=== PATIENT | male | born 1935 | race Caucasian/White ===

== ENCOUNTER 2017-06-06 11:57 | Inpatient (IN) | payer OTHER, BC ==
[~2017-06-06] VITALS: Ht 177.8 cm; Wt 90.2 kg
[~2017-06-06 11:57] MED LIST: ALL300 PO; AMIO200T4 PO; ASPEC325 PO; ATOR80TA PO; CHOL100027 PO; CYAN500T SL; DICL1GEL12 TOP; DUTA0.5C PO; FURO-85 PO; GABA-113 PO; GEMF600T3 PO; ISOS30TA3 PO; LEVO125T5 PO; LISI-461 PO; METO100T44 PO; NTRGSL/4 UT
[2017-06-06] MEDS ORDERED: SODIUM CHLORIDE 0.9% 1000ML 500 ML IV STA (12:15)
[2017-06-06] MEDS ORDERED: ONDANSETRON INJ 2 MG/ML 2 ML VIAL IV STA (12:15)
--- NOTE | 2017-06-06 12:19 | EMERGENCY ROOM VISIT NOTE ---
History Report prepared by Markos: Deangelo Canales Under the Supervision of: Dr. Dominik Armstrong M.D. First contact with patient: 12:07 Chief Complaint: ABDOMINAL PAIN Stated Complaint: ABDOMINAL PAIN History of Present Illness The patient is a 82 year old male who presents to the Emergency Room with complaints of worsening sharp bilateral lower abdominal pain that began several months ago, but worsened over this past week. He rates his pain a 7/10 in severity. Over these past months, the patient has been having this abdominal pain along with some bilateral hip pain and mild left leg weakness. However about 1 week ago, the patient's abdominal pain worsened significantly to this lower quadrants. He denies any recent falls, trauma, fevers, chills, diaphoresis , nausea, vomiting, testicular pain, pain with bowel movements, or abnormal urinary symptoms. His pain is exacerbated with bending over but is relieved with having a bowel movement. He has a past medical history of diverticulosis with the possibility of diverticulitis. However, diverticulitis was never diagnosed officially. He denies any abdominal surgeries. He also has a past medical history of atrial fibrillation with a pacemaker/defibrillator in place. Source of History: patient Onset: several months ago Position: abdomen (bilateral lower) Symptom Intensity: 7/10 Quality: sharp Timing: worsening Modifying Factors (Worsening): movement (bending over) Modifying Factors (Relieving): other (Bowel movement) Associated Symptoms: + weakness (left leg, mild), No fevers, No chills, No diaphoresis, No nausea, No vomiting, No urinary symptoms Note: He is having some bilateral hip tenderness. He denies any testicular pain or pain with bowel movements. Review of Systems See HPI for pertinent positives & negatives. A total of 10 systems reviewed and were otherwise negative. Past Medical & Surgical Medical Problems: (1) Aphasia (2) BPH (benign prostatic hyperplasia) (3) CAD (coronary artery disease) (4) DM type 2 (diabetes mellitus, type 2) (5) Gout (6) History of atrial fibrillation (7) HTN (hypertension) (8) Hyperlipidemia (9) Hypothyroidism (10) Ischemic cardiomyopathy (11) Kidney disease (12) Pacemaker (13) Systolic heart failure (14) TIA (transient ischemic attack) Surgical Problems: (1) History of implantable cardiac defibrillator (ICD) (2) Hx of CABG (3) Hx of tonsillectomy (4) Hx of transurethral resection of prostate Family History FH: heart disease Hypertension Kidney disease Kidney stones Social History Smoking Status: Never Smoker Alcohol Use: none Drug Use: none Marital Status: Housing Status: lives with significant other Occupation Status: retired Current/Historical Medications Scheduled Allopurinol (Allopurinol), 300 MG PO DAILY Amiodarone Hcl (Cordarone), 100 MG PO DAILY Aspirin (Aspirin), 325 MG PO DAILY Atorvastatin (Lipitor), 80 MG PO HS Cholecalciferol (Vitamin D 1000 Unit), 2,000 INTER.UNIT PO DAILY Cyanocobalamin (Vitamin B-12), 500 MCG SL DAILY Dutasteride (Avodart), 0.5 MG PO DAILY Furosemide (Lasix), 20 MG PO DAILY Gabapentin (Neurontin), 1 CAP PO HS Gemfibrozil (Lopid), 600 MG PO BID Isosorbide Mononitrate Ext Rel (Imdur Ext Rel), 1 TAB PO DAILY Levothyroxine Sodium (Levothyroxine Sodium), 125 MCG PO DAILY Lisinopril (Zestril), 5 MG PO QAM Metoprolol Succ (Toprol Xl) (Toprol-Xl ), 100 MG PO QAM Nitroglycerin (Nitrostat), 0.4 MG UT PRN Allergies Coded Allergies: Amlodipine (Verified Adverse Reaction, Mild, INSOMNIA, 06/06/17) Physical Exam Vital Signs Date Time Temp Pulse Resp B/P (MAP) Pulse Ox O2 Delivery O2 Flow Rate FiO2 06/06/17 13:33 60 20 131/71 97 Room Air 06/06/17 12:24 60 06/06/17 11:59 36.6 88 16 94/57 94 Room Air Physical Exam GENERAL: Patient is in no acute distress. HEENT: No acute trauma, normocephalic atraumatic, mucous membranes moist, no nasal congestion, no scleral icterus. NECK: No stridor, no adenopathy, no meningismus, trachea is midline. LUNGS: Clear to auscultation bilaterally, no wheeze, no rhonchi, breath sounds equal. HEART: Without murmurs gallops or rubs, regular rate and rhythm. ABDOMEN: Soft, tender in the lower quadrants primarily, both right and left sides, bowel sounds positive, no hernias, no peritonitis. EXTREMITIES: No cyanosis or edema, full range of motion of all the joints without pain or difficulty, no signs for acute trauma. NEUROLOGIC: Oriented x 3, no acute motor or sensory deficits, no focal weakness. No weakness appreciated in the left lower extremity. SKIN: No rash, no jaundice, no diaphoresis. Medical Decision & Procedures ER Provider Diagnostic Interpretation: Radiology results as stated below per my review and radiologist interpretation: PELVIS 1 OR 2 VIEW ROUTINE CLINICAL HISTORY: hip, pelvis pain pain COMPARISON: None. DISCUSSION: The bones and joint spaces appear intact. There is no evidence of fracture, dislocation or bony disease. Significant degenerative change of the hips bilaterally. No evidence for acetabular protrusion. Mild degenerative change sacroiliac joints. IMPRESSION: Degenerative change of the hips bilaterally. Mild degenerative change sacroiliac joints. No acute process. The above report was generated using voice recognition software. It may contain grammatical, syntax or spelling errors. Electronically signed by: Artemio Munoz M.D. 06/06/2017 1:52 PM Dictated Date/Time: 06/06/2017 1:52 PM ABDOMEN AND PELVIS CT WITH ORAL CONTRAST CT DOSE: 835.22 mGy.cm HISTORY: Acute generalized abdominal pain ABD PAIN, POSSIBLE DIVERTICULITIS TECHNIQUE: Multiaxial CT images of the abdomen and pelvis were performed following the use of oral contrast. A dose lowering technique was utilized adhering to the principles of ALARA. COMPARISON STUDY: CT abdomen and pelvis 02/19/2017. FINDINGS: Mild subsegmental bibasilar lysis/scarring. There is no pneumatosis or pneumoperitoneum identified. Inferior cardiac chambers are least moderately enlarged. Mural fibrofatty changes are noted involving the lateral wall left ventricle compatible with remote infarction. Pacer leads are noted overlying the right atrium and right ventricle. Prior median sternotomy. Coronary arterial disease. Evaluation of the solid abdominal organs is limited without the use of contrast. The liver, spleen, and adrenal glands are within normal limits. Moderate to severe generalized pancreatic atrophy. High attenuating material within the lumen of the gallbladder suggests gallbladder sludge. Lobulated renal parenchyma is noted bilaterally. 3 mm nonobstructing calculus of the inferior pole right kidney. Bilateral renal cysts are noted including a 2.5 cm exophytic cyst of the inferior pole right kidney. Indeterminate 2.3 cm exophytic lesion of the medial superior pole right kidney likely reflects a mildly complex cyst. Probable proteinaceous or hemorrhagic cyst of the lateral interpolar left kidney measures 10 mm. Punctate calculus of the inferior pole left kidney. No ureteral calculi or obstructive uropathy. Ureters, urinary bladder and prostate are unremarkable. Small fat filled left inguinal hernia. Moderate atherosclerosis of the aorta without aneurysm identified. No pathologic adenopathy. There is no bowel obstruction or focal bowel wall thickening. 1.4 cm ovoid calcified structure adjacent to the anterior rectosigmoid is unchanged. There is mild colonic diverticulosis without CT evidence of acute diverticulitis. The appendix is contrast-filled and appears noninflamed. Dystrophic calcifications are noted involving the xiphoid process. Mild bilateral gynecomastia. Multilevel discogenic degenerative changes and facet arthrosis. IMPRESSION: 1. No acute intra-abdominal or intrapelvic abnormality identified. 2. Mild colonic diverticulosis without CT evidence of acute diverticulitis. 3. Probable gallbladder sludge. 4. Bilateral nonobstructing nephrolithiasis. 5. Additional findings as above. Electronically signed by: Yazan Narvaez M.D. 06/06/2017 4:07 PM Dictated Date/Time: 06/06/2017 4:00 PM Laboratory Results 06/06/17 12:20 Red Blood Count 4.17, Mean Corpuscular Volume 93.5, Mean Corpuscular Hemoglobin 33.8, Mean Corpuscular Hemoglobin Concent 36.2, Mean Platelet Volume 11.9, Neutrophils (%) (Auto) 57.9, Lymphocytes (%) (Auto) 27.2, Monocytes (%) (Auto) 12.0, Eosinophils (%) (Auto) 1.9, Basophils (%) (Auto) 0.8, Neutrophils # (Auto ) 3.04, Lymphocytes # (Auto) 1.43, Monocytes # (Auto) 0.63, Eosinophils # (Auto ) 0.10, Basophils # (Auto) 0.04 Test 06/06/17 12:20 06/06/17 13:59 White Blood Count 5.25 K/uL (4.8-10.8) Red Blood Count 4.17 M/uL (4.7-6.1) Hemoglobin 14.1 g/dL (14.0-18.0) Hematocrit 39.0 % (42-52) Mean Corpuscular Volume 93.5 fL (80-100) Mean Corpuscular Hemoglobin 33.8 pg (25-34) Mean Corpuscular Hemoglobin Concent 36.2 g/dl (32-36) Platelet Count 152 K/uL (130-400) Mean Platelet Volume 11.9 fL (7.4-10.4) Neutrophils (%) (Auto) 57.9 % Lymphocytes (%) (Auto) 27.2 % Monocytes (%) (Auto) 12.0 % Eosinophils (%) (Auto) 1.9 % Basophils (%) (Auto) 0.8 % Neutrophils # (Auto) 3.04 K/uL (1.4-6.5) Lymphocytes # (Auto) 1.43 K/uL (1.2-3.4) Monocytes # (Auto) 0.63 K/uL (0.11-0.59) Eosinophils # (Auto) 0.10 K/uL (0-0.5) Basophils # (Auto) 0.04 K/uL (0-0.2) RDW Standard Deviation 46.0 fL (36.4-46.3) RDW Coefficient of Variation 13.5 % (11.5-14.5) Immature Granulocyte % (Auto) 0.2 % Immature Granulocyte # (Auto) 0.01 K/uL (0.00-0.02) Prothrombin Time 10.7 SECONDS (9.0-12.0) Prothromb Time International Ratio 1.0 (0.9-1.1) Activated Partial Thromboplast Time 23.1 SECONDS (21.0-31.0) Partial Thromboplastin Ratio 0.9 Estimated Average Glucose 338 mg/dl Hemoglobin A1c 13.4 % (4.5-5.6) Total Bilirubin 0.6 mg/dl (0.2-1) Aspartate Amino Transf (AST/SGOT) 20 U/L (15-37) Alanine Aminotransferase (ALT/SGPT) 24 U/L (12-78) Alkaline Phosphatase 176 U/L (45-117) Total Protein 7.5 gm/dl (6.4-8.2) Albumin 3.8 gm/dl (3.4-5.0) Globulin 3.7 gm/dl (2.5-4.0) Albumin/Globulin Ratio 1.0 (0.9-2) Lipase 517 U/L (73-393) Arterial Blood pH 7.31 (7.35-7.45) Arterial Blood Partial Pressure CO2 46 mmHg (35-46) Arterial Blood Partial Pressure O2 74 mm/Hg (80-95) Arterial Blood HCO3 23 mmol/L (19-24) Arterial Blood Oxygen Saturation 91.5 % (90-95) Arterial Blood Base Excess -3.6 mEq/L (-9-1.8) Arterial Blood Gas Delivery ROOM AIR Jacky Test POS (POS) Laboratory results reviewed by me. Medications Administered Medications (Trade) Dose Ordered Sig/Aleida Route Start Time Stop Time Status Last Admin Dose Admin Sodium Chloride 500 ml @ 999 mls/hr Q31M STAT IV 06/06/17 12:15 06/06/17 12:45 DC 06/06/17 12:22 999 MLS/HR Ondansetron HCl (Zofran Inj) 4 mg NOW STAT IV 06/06/17 12:15 06/06/17 12:17 DC 06/06/17 12:26 4 MG Sodium Chloride 500 ml @ 999 mls/hr Q31M STAT IV 06/06/17 13:06 06/06/17 13:36 DC 06/06/17 13:33 999 MLS/HR Insulin Human Regular (novoLIN-R U-100 PER UNIT) 10 units NOW STAT IV 06/06/17 13:06 06/06/17 13:09 DC 06/06/17 13:30 10 UNITS ED Course 1207: The patient was evaluated in room C7. A complete history and physical exam was performed. 1215: Ordered Zofran Inj 4 mg IV, Sodium Chloride 500 ml @ 999 mls/hr IV 1306: Ordered Insulin Human Regular 10 units IV, Sodium Chloride 500 ml @ 999 mls/hr IV 1315: Upon reexamination the patient is resting. I discussed results and treatment plan with the patient. He verbalizes agreement and understanding. I spoke with Dr. Hobson of the [facility]. We discussed the patient's results and findings. The patient will be evaluated by them for further management. Medical Decision Differential diagnosis includes but is not limited to diverticulitis, abscess, UTI, arthritis, malignancy, dehydration, electrolyte imbalance, anemia, and hernia. There is no leukocytosis or concerning anemia. Renal panel testing shows a low sodium and a hyperglycemia. Patient also appears to be in acute renal failure. No hepatitis. Pelvis film shows some arthritis, no fracture of the pelvis, no fracture of the hips. Abdominal and pelvis CT shows an open bowel, no bowel obstruction, no diverticulitis, no abscess. Lipase mildly elevated, possibly consistent with early pancreatitis. The patient presents to the ER with lower abdominal pain that has been ongoing for a few weeks. Workup here shows hyperglycemia, dehydration, acute renal failure. He has a mild lipase elevation. The patient received IV saline, he was given IV Zosyn. He received IV insulin. Given the findings, a hospital stay is warranted. I spoke with the patient and the case work aide. The on-call hospitalist was consulted. Medication Reconcilliation Current Medication List: was personally reviewed by me Blood Pressure Screening Patient's blood pressure: Low blood pressure Consults Time Called: 1310 Consulting Physician: Dr. Joce Frey Hospitalist Returned Call: [phone] Discussed the patient's case. The patient will be evaluated for further management. Impression Primary Impression: ARF (acute renal failure) Additional Impressions: Dehydration Hyperglycemia Lower abdominal pain Scribe Attestation The scribe's documentation has been prepared under my direction and personally reviewed by me in its entirety. I confirm that the note above accurately reflects all work, treatment, procedures, and medical decision making performed by me. Departure Information Dispostion Being Evaluated By Hospitalist Referrals Rogelio Watt D.O. (PCP) Patient Instructions My [facility] Problem Qualifiers
[2017-06-06] MEDS ORDERED: OPTIRAY 320 IV PRN (12:30)
[2017-06-06 12:35] LABS: BASO % 0.8 %; BASO ABS # 0.04 K/uL (0-0.2); EOS % 1.9 %; HEMOGLOBIN 14.1 g/dL (14.0-18.0); IG# 0.01 K/uL (0.00-0.02); LYMPH % 27.2 %; LYMPH ABS # 1.43 K/uL (1.2-3.4); MEAN CELL VOLUME 93.5 fL (80-100); MEAN CORPUSCULAR HEMOGLOBIN 33.8 pg (25-34); MEAN CORPUSCULAR HGB CONC 36.2 g/dl (32-36); MEAN PLATELET VOLUME 11.9 fL (7.4-10.4); MONO ABS # 0.63 K/uL (0.11-0.59); NEUT % 57.9 %; NEUT ABS # 3.04 K/uL (1.4-6.5); PLATELET COUNT 152 K/uL (130-400); RED CELL DISTRIBUTION WIDTH CV 13.5 % (11.5-14.5); WHITE BLOOD COUNT 5.25 K/uL (4.8-10.8)
[2017-06-06 12:53] LABS: PTT PATIENT 23.1 SECONDS (21.0-31.0)
[2017-06-06 13:03] LABS: ALBUMIN 3.8 gm/dl (3.4-5.0); CALCIUM 9.8 mg/dl (8.5-10.1); CREATININE 3.12 mg/dl (0.60-1.40); POTASSIUM 4.8 mmol/L (3.5-5.1); TOTAL PROTEIN 7.5 gm/dl (6.4-8.2)
[2017-06-06] MEDS ORDERED: SODIUM CHLORIDE 0.9% 500ML 500 ML IV STA (13:06)
[2017-06-06] MEDS ORDERED: NovoLIN-R INSULIN PER UNIT CHARGE IV STA (13:06)
--- NOTE | 2017-06-06 13:53 | DIAGNOSTIC IMAGING REPORT ---
PELVIS 1 OR 2 VIEW ROUTINE CLINICAL HISTORY: hip, pelvis pain pain COMPARISON: None. DISCUSSION: The bones and joint spaces appear intact. There is no evidence of fracture, dislocation or bony disease. Significant degenerative change of the hips bilaterally. No evidence for acetabular protrusion. Mild degenerative change sacroiliac joints. IMPRESSION: Degenerative change of the hips bilaterally. Mild degenerative change sacroiliac joints. No acute process. The above report was generated using voice recognition software. It may contain grammatical, syntax or spelling errors. Electronically signed by: Artemio Munoz M.D. 06/06/2017 1:52 PM Dictated Date/Time: 06/06/2017 1:52 PM
[2017-06-06 14:15] LABS: PHOSPHORUS 3.2 mg/dl (2.5-4.9)
[2017-06-06 14:20] LABS: HEMOGLOBIN A1C 13.4 % (4.5-5.6)
[2017-06-06] MEDS ORDERED: NITROGLYCERIN 0.4 MG SL PER TAB CHARGE SL PRN (14:30)
[2017-06-06] MEDS ORDERED: PHARMACY GLYCEMIC MGMT CONSULT PRN (14:30)
[2017-06-06] MEDS ORDERED: POLYETHYLENE (MIRALAX) 17 GM PACK PO PRN (14:30)
[2017-06-06] MEDS ORDERED: ONDANSETRON INJ 2 MG/ML 2 ML VIAL IV PRN (14:30)
[2017-06-06] MEDS ORDERED: HHS GOAL RANGE 250-350 mg/dl ONE (14:30)
[2017-06-06] MEDS ORDERED: SEVERE STRESS LEVEL ONE (14:30)
[2017-06-06] MEDS ORDERED: ACETAMINOPHEN 325 MG TAB PO PRN (14:30)
[2017-06-06] MEDS ORDERED: GABA400C PO (14:55)
[2017-06-06] MEDS ORDERED: INSULIN IV INFUSION PROTOCOL SCH (15:12)
[2017-06-06] MEDS ORDERED: GLUCAGON FOR INJ 1 MG VIAL SQ PRN (16:00)
[2017-06-06] MEDS ORDERED: PENDING D5 1/2NS+20mEq KCL IVF SCH (16:00)
[2017-06-06] MEDS ORDERED: PENDING NSS+20mEq KCL IVF SCH (16:00)
[2017-06-06] MEDS ORDERED: GLUCOSE 40% GEL 15 GM TUBE PO PRN (16:00)
[2017-06-06] MEDS ORDERED: GLUCOSE 10 TABS/TUBE PO PRN (16:00)
[2017-06-06] MEDS ORDERED: NovoLIN R BOLUS FROM BAG IV ONE (16:00)
[2017-06-06] MEDS ORDERED: DEXTROSE 50% 50 ML SYR IV PRN (16:00)
--- NOTE | 2017-06-06 16:06 | History and Physical ---
History & Physical Date & Time of Service: Jun 06, 2017 at 15:04 Chief Complaint: Abdominal Pain Primary Care Physician: Rogelio Watt D.O. History of Present Illness Source: patient, spouse, clinic records, hospital records Pt is 82 y/o M with PMH HTN, CAD s/p CABG, ischemic heart disease, systolic heart failure, paroxysmal VT with ICD implanted, CKD IV, hyperlipidemia, hypothyroidism, hx TIA, BPH, DM II diet controlled presented to ER with c/o generalized weakness and weakness to arms past couple of days with some numbness sensation to distal tuft of R 2-4 fingers. Also c/o polyuria, polydipsia, dry mouth past 3 days. C/O blurry vision past 3 weeks. C/O frontal RICHARDS this morning. Past couple of days some aching across his lower abdomen, which has resolved since arrival to ER. Hx neck and low back pain with L leg radiculopathy in past and followed by Dr Shah. In past had injection SI joint , none recently. On gabapentin HS. States last week went bowling and after started with aching across lower back with left leg weakness and bilateral hip pain. he states this feels like prior flares in past. Hx L foot pain with negative foot xray and was on prednisone 20mg x 5 days on 05/02/17 and had resolution of foot pain. Pt diet controlled DM II, doesn't check home BS. HA1c on 05/02/17 was 7.6. Usually takes lasix daily, however hasn't taken past couple of days with increased urination. Last BM 2 days ago. Hx diverticulosis, colonoscopy 2013. Denies fever/chills, diaphoresis, N/V/D, melena, hematochezia , dizziness, syncope, vision loss, loss ROM of neck, loss ROM of extremities, CP , SOB, orthopnea, palpitations, cough, sore throat, otalgia, rhinorrhea, extremity edema, rashes, hematuria, dysuria, saddle paresthesias, lower extremity paresthesias, loss control of bowel/bladder. Past Medical/Surgical History Medical Problems: (1) Aphasia Status: Resolved (2) BPH (benign prostatic hyperplasia) Status: Chronic (3) CAD (coronary artery disease) Permanent Comment: [place] 1996 [place] [facility] [place] Status: Chronic (4) DM type 2 (diabetes mellitus, type 2) Permanent Comment: diet controlled Status: Chronic (5) Gout Status: Chronic (6) History of atrial fibrillation Status: Chronic (7) HTN (hypertension) Status: Chronic (8) Hyperlipidemia Status: Chronic (9) Hypothyroidism Status: Chronic (10) Ischemic cardiomyopathy Status: Chronic (11) Kidney disease Permanent Comment: CKD IV Status: Chronic (12) Pacemaker Status: Chronic (13) Systolic heart failure Status: Chronic (14) TIA (transient ischemic attack) Status: Resolved Surgical Problems: (1) History of implantable cardiac defibrillator (ICD) Status: Resolved (2) Hx of CABG Permanent Comment: Status: Resolved (3) Hx of tonsillectomy Status: Resolved (4) Hx of transurethral resection of prostate Status: Resolved Family History FH: heart disease Hypertension Kidney disease Kidney stones Social History Smoking Status: Never Smoker Smokeless Tobacco Use: No Alcohol Use: occasionally Drug Use: none Marital Status: Housing status: lives with significant other Occupational Status: retired Immunizations History of Tetanus Vaccine?: Yes History of Pneumococcal: Yes History of Hepatitis B Vaccine: No Multi-Drug Resistant Organisms History of MDRO: No Allergies Coded Allergies: Amlodipine (Verified Adverse Reaction, Mild, INSOMNIA, 06/06/17) Home Medications Scheduled Allopurinol (Allopurinol), 300 MG PO DAILY Amiodarone Hcl (Cordarone), 100 MG PO DAILY Aspirin (Aspirin), 325 MG PO DAILY Atorvastatin (Lipitor), 80 MG PO HS Cholecalciferol (Vitamin D 1000 Unit), 2,000 INTER.UNIT PO DAILY Cyanocobalamin (Vitamin B-12), 500 MCG SL DAILY Dutasteride (Avodart), 0.5 MG PO DAILY Furosemide (Lasix), 20 MG PO DAILY Gabapentin (Neurontin), 1 CAP PO HS Gemfibrozil (Lopid), 600 MG PO BID Isosorbide Mononitrate Ext Rel (Imdur Ext Rel), 1 TAB PO DAILY Levothyroxine Sodium (Levothyroxine Sodium), 125 MCG PO DAILY Lisinopril (Zestril), 5 MG PO QAM Metoprolol Succ (Toprol Xl) (Toprol-Xl ), 100 MG PO QAM Nitroglycerin (Nitrostat), 0.4 MG UT PRN Review of Systems See HPI for pertinent positives & negatives. All other systems reviewed and were otherwise negative Physical Exam Vital Signs Date Time Temp Pulse Resp B/P (MAP) Pulse Ox O2 Delivery O2 Flow Rate FiO2 06/06/17 13:33 60 20 131/71 97 Room Air 06/06/17 12:24 60 06/06/17 11:59 36.6 88 16 94/57 94 Room Air General Appearance: WD/WN, no apparent distress Head: normocephalic, atraumatic Eyes: normal inspection, PERRL, EOMI, sclerae normal ENT: hearing grossly normal, pharynx normal, + pertinent finding (dry mucous membranes) Neck: supple, no JVD, trachea midline, + pertinent finding (non-tender to palpation, ROM intact) Respiratory/Chest: lungs clear, normal breath sounds, no respiratory distress, no accessory muscle use Cardiovascular: regular rate, rhythm, no edema, normal peripheral pulses, + systolic murmur Abdomen/GI: normal bowel sounds, non tender (non-tender on my examination), soft Back: normal inspection, no CVA tenderness, + pertinent finding (non-tender to palpation. negative leg raising) Extremities/Musculoskelatal: normal inspection, normal capillary refill, no pedal edema, non-tender, + pertinent finding (bilateral upper and lower extremities with equal strength) Neurologic/Psych: alert, normal mood/affect, oriented x 3 Skin: normal color, warm/dry Diagnostics Laboratory Results Results Past 24 Hours Test 06/06/17 12:20 06/06/17 13:59 06/06/17 14:16 Range/Units White Blood Count 5.25 4.8-10.8 K/uL Red Blood Count 4.17 4.7-6.1 M/uL Hemoglobin 14.1 14.0-18.0 g/dL Hematocrit 39.0 42-52 % Mean Corpuscular Volume 93.5 80-100 fL Mean Corpuscular Hemoglobin 33.8 25-34 pg Mean Corpuscular Hemoglobin Concent 36.2 32-36 g/dl Platelet Count 152 130-400 K/uL Mean Platelet Volume 11.9 7.4-10.4 fL Neutrophils (%) (Auto) 57.9 % Lymphocytes (%) (Auto) 27.2 % Monocytes (%) (Auto) 12.0 % Eosinophils (%) (Auto) 1.9 % Basophils (%) (Auto) 0.8 % Neutrophils # (Auto) 3.04 1.4-6.5 K/uL Lymphocytes # (Auto) 1.43 1.2-3.4 K/uL Monocytes # (Auto) 0.63 0.11-0.59 K/uL Eosinophils # (Auto) 0.10 0-0.5 K/uL Basophils # (Auto) 0.04 0-0.2 K/uL RDW Standard Deviation 46.0 36.4-46.3 fL RDW Coefficient of Variation 13.5 11.5-14.5 % Immature Granulocyte % (Auto) 0.2 % Immature Granulocyte # (Auto) 0.01 0.00-0.02 K/uL Prothrombin Time 10.7 9.0-12.0 SECONDS Prothromb Time International Ratio 1.0 0.9-1.1 Activated Partial Thromboplast Time 23.1 21.0-31.0 SECONDS Partial Thromboplastin Ratio 0.9 Sodium Level 126 136-145 mmol/L Potassium Level 4.8 3.5-5.1 mmol/L Chloride Level 92 98-107 mmol/L Carbon Dioxide Level 24 21-32 mmol/L Anion Gap 10.0 3-11 mmol/L Blood Urea Nitrogen 46 7-18 mg/dl Creatinine 3.12 0.60-1.40 mg/dl Est Creatinine Clear Calc Drug Dose 22.4 ml/min Estimated GFR () 20.7 Estimated GFR (Non- 17.9 BUN/Creatinine Ratio 14.8 10-20 Random Glucose 679 70-99 mg/dl Estimated Average Glucose 338 mg/dl Hemoglobin A1c 13.4 4.5-5.6 % Calcium Level 9.8 8.5-10.1 mg/dl Phosphorus Level 3.2 2.5-4.9 mg/dl Magnesium Level 2.8 1.8-2.4 mg/dl Total Bilirubin 0.6 0.2-1 mg/dl Aspartate Amino Transf (AST/SGOT) 20 15-37 U/L Alanine Aminotransferase (ALT/SGPT) 24 12-78 U/L Alkaline Phosphatase 176 45-117 U/L Total Protein 7.5 6.4-8.2 gm/dl Albumin 3.8 3.4-5.0 gm/dl Globulin 3.7 2.5-4.0 gm/dl Albumin/Globulin Ratio 1.0 0.9-2 Lipase 517 73-393 U/L Beta-Hydroxybutyric Acid 2.35 0.2-2.81 mg/dL Arterial Blood pH 7.31 7.35-7.45 Arterial Blood Partial Pressure CO2 46 35-46 mmHg Arterial Blood Partial Pressure O2 74 80-95 mm/Hg Arterial Blood HCO3 23 19-24 mmol/L Arterial Blood Oxygen Saturation 91.5 90-95 % Arterial Blood Base Excess -3.6 -9-1.8 mEq/L Arterial Blood Gas Delivery ROOM AIR Jacky Test POS POS Bedside Glucose 559 70-99 mg/dl Diagnostic Radiology PELVIC XRAY: IMPRESSION: Degenerative change of the hips bilaterally. Mild degenerative change sacroiliac joints. No acute process. EKG EKG: dual paced rhythm Read by cardiology: AV dual-paced rhythm with prolonged AV conduction Abnormal ECG When compared with ECG of 19-FEB-2017 13:14, No significant change was found Confirmed by Mesfin Machado ([id number]) on 06/06/2017 2:32:49 PM Impression Assessment and Plan [facility] Pt with hx diet controlled DM II. HA1c was 7.6 on 05/02/17. He completed a course of prednisone 20mg x 5 days for foot pain on 05/02/17. C/O weakness, polydipsia, polyuria, blurry vision, RICHARDS. RICHARDS resolved. Suspect from hyperglycemia, will continue to monitor. Pt afebrile. Initial BP: 94/57 up to 131/71. P: 88, R: 16. In ER Glucose: 679, K: 4.8, Beta-hydroxybutyric acid: 2.3. ABG: pH: 7.3, pCO2: 46, pO2: 74, HCO3: 23. Pt given IV insulin R 10U and 1 liter NSS. -pending CT abd/pelvis for lower abdominal pain to r/o diverticulitis. No bleeding. Lipase: 517, Alk phos: 176. no current abdominal pain, suspect from hyperglycemia. Continue to monitor -pending U/A -Following [facility] protocol. IVF fluids, insulin drip -pharmacy glycemic consult -serial prp to monitor electrolytes -repeat phosphorus and magnesium labs -recheck vbg -diabetes education consult PSEUDOHYPONATREMIA Corrected Na is 135 for Glucose of 679 -continue to monitor DONYA on CKD IV Cr: 3.12 (baseline ~2.2). Pt dehydrated. -IVF -continue to monitor -avoid nephrotoxic agents when possible -hold lisinopril -nephrology consult ISCHEMIC CARDIOMYOPATHY, CHRONIC SYSTOLIC HF Pt with chronic low EF. Echo 09/07: EF: 25-30%, moderate aortic regurgitation, global LF hypokinesis. No increased edema, no SOB, CP or palpitations -holding lasix for now -echo HX PAROXYSMAL VT with ICD IMPLANTATION Hx ventricular and atrial arrhythmia. On amiodarone. dual paced on EKG. No CP, SOB, edema, ICD firing. -continue amiodarone CAD S/P CABG Hx CABG 1996. No CP or SOB -continue metoprolol, Imdur, atorvastatin, gemfibrozil BACK PAIN, LLE RADICULOPATHY pt with hx, followed by Dr Shah. Suspect flare from bowling last week -continue gabapentin and continue to monitor HYPOTHYROIDISM TSH: 0.81 on 05/02/17 -continue levothyroxine BPH -continue avodart GOUT -continue allopurinol DVT Prophylaxis -heparin SQ Disposition admit tele Full Code as per discussion with pt Follows with Dr Watt for routine care Pt was seen with Dr Hobson. See addendum Level of Care Telemetry Resuscitation Status FULL RESUSCITATION VTE Prophylaxis VTE Risk Assessment Done? Y/N: Yes Risk Level: Moderate Given or contraindicated: Unfractionated heparin SQ Additional Copies To Rogelio Watt D.O.
--- NOTE | 2017-06-06 16:09 | DIAGNOSTIC IMAGING REPORT ---
ABDOMEN AND PELVIS CT WITH ORAL CONTRAST CT DOSE: 835.22 mGy.cm HISTORY: Acute generalized abdominal pain ABD PAIN, POSSIBLE DIVERTICULITIS TECHNIQUE: Multiaxial CT images of the abdomen and pelvis were performed following the use of oral contrast. A dose lowering technique was utilized adhering to the principles of ALARA. COMPARISON STUDY: CT abdomen and pelvis 02/19/2017. FINDINGS: Mild subsegmental bibasilar lysis/scarring. There is no pneumatosis or pneumoperitoneum identified. Inferior cardiac chambers are least moderately enlarged. Mural fibrofatty changes are noted involving the lateral wall left ventricle compatible with remote infarction. Pacer leads are noted overlying the right atrium and right ventricle. Prior median sternotomy. Coronary arterial disease. Evaluation of the solid abdominal organs is limited without the use of contrast. The liver, spleen, and adrenal glands are within normal limits. Moderate to severe generalized pancreatic atrophy. High attenuating material within the lumen of the gallbladder suggests gallbladder sludge. Lobulated renal parenchyma is noted bilaterally. 3 mm nonobstructing calculus of the inferior pole right kidney. Bilateral renal cysts are noted including a 2.5 cm exophytic cyst of the inferior pole right kidney. Indeterminate 2.3 cm exophytic lesion of the medial superior pole right kidney likely reflects a mildly complex cyst. Probable proteinaceous or hemorrhagic cyst of the lateral interpolar left kidney measures 10 mm. Punctate calculus of the inferior pole left kidney. No ureteral calculi or obstructive uropathy. Ureters, urinary bladder and prostate are unremarkable. Small fat filled left inguinal hernia. Moderate atherosclerosis of the aorta without aneurysm identified. No pathologic adenopathy. There is no bowel obstruction or focal bowel wall thickening. 1.4 cm ovoid calcified structure adjacent to the anterior rectosigmoid is unchanged. There is mild colonic diverticulosis without CT evidence of acute diverticulitis. The appendix is contrast-filled and appears noninflamed. Dystrophic calcifications are noted involving the xiphoid process. Mild bilateral gynecomastia. Multilevel discogenic degenerative changes and facet arthrosis. IMPRESSION: 1. No acute intra-abdominal or intrapelvic abnormality identified. 2. Mild colonic diverticulosis without CT evidence of acute diverticulitis. 3. Probable gallbladder sludge. 4. Bilateral nonobstructing nephrolithiasis. 5. Additional findings as above. Electronically signed by: Yazan Narvaez M.D. 06/06/2017 4:07 PM Dictated Date/Time: 06/06/2017 4:00 PM
[2017-06-06] MEDS: INSULIN REGULAR 250 UNITS in SODIUM CHLORIDE 0.9% 250ML 250 ML IV SCH ×2 (16:13→16:40)
[2017-06-06 16:38] VITALS: BP 118/54; PULSE 60; TEMP 37; O2SAT 94; BMI 31.9
[2017-06-06] MEDS ORDERED: SODIUM CHLORIDE 0.9% 1000ML 1,000 ML IV SCH (17:00)
[2017-06-06] MEDS: INSULIN ASPART 100 UNITS/ML 3 ML PEN SC SCH ×2 (17:34→21:00)
[2017-06-06 17:38] LABS: CALCIUM 9.2 mg/dl (8.5-10.1); CREATININE 2.76 mg/dl (0.60-1.40); PHOSPHORUS 2.5 mg/dl (2.5-4.9); POTASSIUM 4.5 mmol/L (3.5-5.1)
[2017-06-06 19:08] VITALS: BP 110/57; PULSE 60; TEMP 36.9; O2SAT 95
[2017-06-06 19:37] VITALS: BP 92/52; TEMP 36.9; O2SAT 93
[2017-06-06 20:00] VITALS: O2SAT 95
[2017-06-06 20:39] LABS: CALCIUM 8.8 mg/dl (8.5-10.1); CREATININE 3.07 mg/dl (0.60-1.40); PHOSPHORUS 2.4 mg/dl (2.5-4.9); POTASSIUM 4.5 mmol/L (3.5-5.1)
[2017-06-06] MEDS: GABAPENTIN 400 MG CAP PO SCH (21:12)
[2017-06-06] MEDS: ATORVASTATIN 40 MG TAB PO SCH (21:12)
[2017-06-06] MEDS: GEMFIBROZIL 600 MG TAB PO SCH (21:13)
[2017-06-06] MEDS: HEPARIN SOD 5000 UNIT/0.5 ML CARP SQ SCH (21:15)
[2017-06-06] MEDS ORDERED: NURSING VERBAL MED ORDER ONE (21:45)
[2017-06-06] MEDS: D5W AND 1/2NSS + 20MEQ KCL 1,000 ML IV SCH (22:08)
--- NOTE | 2017-06-06 23:11 | Progress Note ---
Progress Note Date of Service Jun 06, 2017. Progress Note ATTENDING ADDENDUM : 1999 LAB REVIEWED : Cr 3.12-> 2.76-> 3.07 increased IVF to 125 ml/hr BSG 252 while on IV insulin gtt , appreciate input form Pharmacy for glycemic management
[2017-06-06] MEDS: AVODART: ORDER AWAITING ACTION SCH (23:36)
[2017-06-06 23:45] VITALS: BP 116/62; PULSE 60; TEMP 37.6; O2SAT 92
[2017-06-06 23:59] VITALS: O2SAT 95
[2017-06-07] VITALS (7 sets, daily range): BP systolic 93–155; BP diastolic 56–83; PULSE 60–61; TEMP 36.6–36.9; O2SAT 92–95; BMI 28.9
[2017-06-07 00:12] LABS: CALCIUM 8.8 mg/dl (8.5-10.1); CREATININE 2.82 mg/dl (0.60-1.40); PHOSPHORUS 2.3 mg/dl (2.5-4.9); POTASSIUM 4.6 mmol/L (3.5-5.1)
[2017-06-07 04:05] LABS: HEMATOCRIT 35.7 % (42-52); HEMOGLOBIN 12.7 g/dL (14.0-18.0); MEAN CELL VOLUME 94.4 fL (80-100); MEAN CORPUSCULAR HEMOGLOBIN 33.6 pg (25-34); MEAN CORPUSCULAR HGB CONC 35.6 g/dl (32-36); MEAN PLATELET VOLUME 11.4 fL (7.4-10.4); PLATELET COUNT 116 K/uL (130-400); RED CELL DISTRIBUTION WIDTH CV 13.7 % (11.5-14.5); RED CELL DISTRIBUTION WIDTH SD 47.3 fL (36.4-46.3); WHITE BLOOD COUNT 3.89 K/uL (4.8-10.8)
[2017-06-07 04:21] LABS: CALCIUM 8.8 mg/dl (8.5-10.1); CREATININE 2.73 mg/dl (0.60-1.40); POTASSIUM 4.8 mmol/L (3.5-5.1)
[2017-06-07 04:22] LABS: PHOSPHORUS 2.4 mg/dl (2.5-4.9)
[2017-06-07] MEDS: LEVOTHYROXINE 125 MCG TAB PO SCH (05:56)
[2017-06-07] MEDS: D5W AND 1/2NSS + 20MEQ KCL 1,000 ML IV SCH (05:57)
[2017-06-07] MEDS ORDERED: PERFLUTREN LIPID MICROSPHERE (DEFINITY) IV ONE (06:57)
[2017-06-07] MEDS: AVODART: ORDER AWAITING ACTION SCH ×2 (08:00→16:00)
[2017-06-07] MEDS: ASPIRIN 325 MG ECTAB PO SCH (08:24)
[2017-06-07] MEDS: AMIODARONE 200 MG TAB PO SCH (08:25)
[2017-06-07] MEDS: CHOLECALCIFEROL 1000 INTER.UNIT TAB PO SCH (08:25)
[2017-06-07] MEDS: ISOSORBIDE MONONITRATE 30 MG TABCR PO SCH (08:25)
[2017-06-07] MEDS: METOPROLOL SUCC 50MG EXT REL TAB PO SCH (08:26)
[2017-06-07] MEDS: GEMFIBROZIL 600 MG TAB PO SCH ×2 (08:26→21:16)
[2017-06-07] MEDS: CYANOCOBALAMIN 500 MCG TAB (VIT B-12) PO SCH (08:26)
[2017-06-07] MEDS: INSULIN ASPART 100 UNITS/ML 3 ML PEN SC SCH ×4 (08:32→21:00)
[2017-06-07] MEDS: HEPARIN SOD 5000 UNIT/0.5 ML CARP SQ SCH ×2 (08:33→21:20)
[2017-06-07] MEDS ORDERED: ALLOPURINOL 300 MG TAB PO SCH (09:00)
[2017-06-07 09:09] LABS: CALCIUM 8.9 mg/dl (8.5-10.1); CREATININE 2.54 mg/dl (0.60-1.40); PHOSPHORUS 2.6 mg/dl (2.5-4.9); POTASSIUM 4.6 mmol/L (3.5-5.1)
[2017-06-07] MEDS ORDERED: NURSING VERBAL MED ORDER ONE (09:15)
[2017-06-07] MEDS ORDERED: INSULIN PROTOCOL GOAL RANGE ONE (09:45)
--- NOTE | 2017-06-07 10:15 | Pharmacy Progress Note ---
Glycemic Control Intl Consult Date of Service Jun 07, 2017. Scope Glycemic Pharmacist consulted by Kary Aguilar on 06/06/17 for glycemic control and to write orders per [facility] inpatient glycemic control protocol Objective Weight (Kilograms): 91.400 Accuchecks BSG (last 24hrs): Test 06/06/17 12:20 06/06/17 14:16 06/06/17 15:03 06/06/17 16:55 Random Glucose 679 mg/dl (70-99) 435 mg/dl (70-99) Bedside Glucose 559 mg/dl (70-99) 525 mg/dl (70-99) Test 06/06/17 16:58 06/06/17 18:02 06/06/17 19:06 06/06/17 20:05 Bedside Glucose 444 mg/dl (70-99) 459 mg/dl (70-99) 388 mg/dl (70-99) 276 mg/dl (70-99) Test 06/06/17 20:12 06/06/17 21:07 06/06/17 22:06 06/06/17 23:04 Random Glucose 282 mg/dl (70-99) Bedside Glucose 252 mg/dl (70-99) 222 mg/dl (70-99) 215 mg/dl (70-99) Test 06/06/17 23:44 06/07/17 00:05 06/07/17 00:55 06/07/17 02:24 Random Glucose 217 mg/dl (70-99) Bedside Glucose 235 mg/dl (70-99) 234 mg/dl (70-99) 230 mg/dl (70-99) Test 06/07/17 03:15 06/07/17 03:54 06/07/17 04:00 06/07/17 05:06 Bedside Glucose 269 mg/dl (70-99) 257 mg/dl (70-99) 269 mg/dl (70-99) Random Glucose 252 mg/dl (70-99) Test 06/07/17 07:01 06/07/17 08:22 Bedside Glucose 280 mg/dl (70-99) Random Glucose 331 mg/dl (70-99) Laboratory Data (last 24hrs) Test 06/06/17 12:20 06/06/17 16:55 06/06/17 20:12 06/06/17 23:44 Anion Gap 10.0 mmol/L 6.0 mmol/L 8.0 mmol/L 5.0 mmol/L BUN/Creatinine Ratio 14.8 15.6 14.7 16.2 Blood Urea Nitrogen 46 mg/dl 43 mg/dl 45 mg/dl 46 mg/dl Creatinine 3.12 mg/dl 2.76 mg/dl 3.07 mg/dl 2.82 mg/dl Hemoglobin A1c 13.4 % Potassium Level 4.8 mmol/L 4.5 mmol/L 4.5 mmol/L 4.6 mmol/L Sodium Level 126 mmol/L 129 mmol/L 132 mmol/L 134 mmol/L White Blood Count 5.25 K/uL Red Blood Count 4.17 M/uL Hemoglobin 14.1 g/dL Hematocrit 39.0 % Mean Corpuscular Volume 93.5 fL Mean Corpuscular Hemoglobin 33.8 pg Mean Corpuscular Hemoglobin Concent 36.2 g/dl Platelet Count 152 K/uL Mean Platelet Volume 11.9 fL Neutrophils (%) (Auto) 57.9 % Lymphocytes (%) (Auto) 27.2 % Monocytes (%) (Auto) 12.0 % Eosinophils (%) (Auto) 1.9 % Basophils (%) (Auto) 0.8 % Neutrophils # (Auto) 3.04 K/uL Lymphocytes # (Auto) 1.43 K/uL Monocytes # (Auto) 0.63 K/uL Eosinophils # (Auto) 0.10 K/uL Basophils # (Auto) 0.04 K/uL Test 06/07/17 03:54 06/07/17 08:22 Anion Gap 5.0 mmol/L 8.0 mmol/L BUN/Creatinine Ratio 16.2 15.6 Blood Urea Nitrogen 44 mg/dl 40 mg/dl Creatinine 2.73 mg/dl 2.54 mg/dl Potassium Level 4.8 mmol/L 4.6 mmol/L Sodium Level 133 mmol/L 132 mmol/L White Blood Count 3.89 K/uL HbA1c Test 06/06/17 12:20 Hemoglobin A1c 13.4 % (4.5-5.6) H Recent Pertinent Medications Outpatient Anti-diabetic Regimen: * N/A - diet controlled Assessment & Plan ASSESSMENT: * 82yo T2DM male with HHS possibly secondary to recent prednisone taper ( - 05/09/17). * A1c yesterday is most likely artificially inflated due to significantly high BSGs over the past few weeks with prednisone. * A1c 7.6% on 05/02/17 which is in goal range of A1c <8% based on age/ comorbidities. * Hydration + IV insulin infusion initiated per HHS protocol/guidelines * Gentle hydration used secondary to low EF * Initial IV insulin infusion goal range used: 250-350mg/dl in order to maintain BSG ~ 300 mg/dl until metabolic abnormalities correct * Potassium will be incorporated into IVF when K+ drops below the upper limit of normal due to total body potassium deficiency * Dextrose will be incorporated into IVF to avoid hypoglycemia while insulin administration continues to correct HHS * Will start the transition process from IV to SQ when patient meets criteria. PLAN FOR INPATIENT GLYCEMIC CONTROL: * Starting IV insulin infusion per [facility] protocol * Goal Range 250 - 350 mg/dl --> lower to 140-180mg/dl 06/07/17 morning * Nutritional / Prandial insulin per carb ratio of 1 unit for every 8g CHO consumed * Increase hydration for HHS. Discussed with hospitalist * NSS @ 250ml/hr x 1 liter, then, * 1/2 NS + 20mEq KCl @ 150 ml/hr * No dextrose needed since above BSG goal range and tolerating PO well. * Transition to SQ basal bolus when patient meets criteria * Patient may require a short term course of SQ insulin post-discharge * Please note that the plan above was derived based on current level of insulin resistance and hospital stress. These recommendations are appropriate for inpatient admission only. Plan of care upon discharge will need to be reassessed to avoid potential outpatient hypo/hyperglycemia. Thank you.
--- NOTE | 2017-06-07 10:50 | ECHOCARDIOGRAM REPORT ---
*NOTICE TO RECEIVING [employer] This information is strictly Confidential and protected under [place] law. [place] law prohibits you from making any further disclosure of this information unless further disclosure is expressly permitted by the written consent of the person to whom it pertains or is authorized by law. A general authorization for the release of medical or other information is not sufficient for this purpose. Hospital accepts no responsibility if the information is made available to any other person, INCLUDING THE PATIENT. Interpretation Summary * Name: TEO DUMONT Study Date: 06/07/2017 06:24 AM BP: 155/83 mmHg * Patient Location: .2E\S\E211\S\1 HR: 61 * : 1935 (M/d/yyyy) Gender: Male Height: 70 in * Age: 82 yrs Ethnicity: [place] Weight: 220 lb * Ordering Physician: Kary Aguilar * Referring Physician: Self, Referred * Performed By: Betty Daniels RCS * * Reason For Study: ISCHEMIC CARDIOMYOPATHY * BSA: 2.2 m2 * -- Conclusions -- * The left ventricle is mildly dilated. * There is severe concentric left ventricular hypertrophy. * Left ventricular systolic function is severely reduced. * Apical wall motion abnormality may reflect pacemaker activation. * There is inferior wall akinesis. * There is posterior wall akinesis. * There is severe global hypokinesis of the left ventricle. * Ejection Fraction = 20-25%. * Aortic valve sclerosis mild, without significant aortic valvular stenosis. * Mild aortic regurgitation. * There is moderate mitral regurgitation. Procedure Details * A complete two-dimensional transthoracic echocardiogram was performed (2D, M-mode, Doppler and color flow Doppler). * A contrast injection of Definity was performed to improve assessment of LV function. * Contrast was injected into an intravenous site in the right arm. * One vial of Definity ultrasound contrast was diluted in normal saline to a total volume of 10 ml. A total of '2' ml of solution was administered during imaging. * Lot # [id number] of Definity utilized for procedure. * Expiration date MAY 12. * The attending nurse who injected the contrast agent was BELLE QUIÑONES RN. Left Ventricle * The left ventricle is mildly dilated. * There is severe concentric left ventricular hypertrophy. * Ejection Fraction = 20-25%. * Left ventricular systolic function is severely reduced. * Apical wall motion abnormality may reflect pacemaker activation. * There is severe global hypokinesis of the left ventricle. * There is inferior wall akinesis. * There is posterior wall akinesis. Right Ventricle * The right ventricle is grossly normal size. * There is a pacemaker lead in the right ventricle. Mitral Valve * The mitral valve is grossly normal. * There is no mitral valve stenosis. * There is moderate mitral regurgitation. Tricuspid Valve * The tricuspid valve is not well visualized. Aortic Valve * Aortic valve sclerosis mild, without significant aortic valvular stenosis. * Mild aortic regurgitation. Pulmonic Valve * The pulmonic valve is not well visualized. Great Vessels * The aortic root is normal size. Pericardium/Pleural * There is no pericardial effusion. MMode 2D Measurements and Calculations IVSd 1.9 cm IVSs 2.3 cm LVIDd 5.9 cm LVIDs 5.1 cm LVPWd 1.5 cm LVPWs 1.3 cm IVS/LVPW 1.3 FS 14.1 % EDV(Teich) 175.1 ml ESV(Teich) 123.3 ml EF(Teich) 29.6 % EDV(cubed) 208.3 ml ESV(cubed) 131.9 ml EF(cubed) 36.7 % % IVS thick 18.0 % % LVPW thick -12.06 % LV mass(C)d 514.6 grams LV mass(C)dI 236.8 grams/m\S\2 LV mass(C)s 440.8 grams LV mass(C)sI 202.8 grams/m\S\2 SV(Teich) 51.8 ml SI(Teich) 23.8 ml/m\S\2 SV(cubed) 76.4 ml SI(cubed) 35.2 ml/m\S\2 Ao root diam 3.7 cm Ao root area 10.6 cm\S\2 ACS 2.6 cm LA dimension 5.5 cm LA/Ao 1.5 LVOT diam 2.1 cm LVOT area 3.6 cm\S\2 LVAd ap4 49.4 cm\S\2 LVLd ap4 8.8 cm EDV(MOD-sp4) 220.2 ml EDV(sp4-el) 236.1 ml LVAs ap4 42.4 cm\S\2 LVLs ap4 8.7 cm ESV(MOD-sp4) 166.5 ml ESV(sp4-el) 176.2 ml EF(MOD-sp4) 24.4 % EF(sp4-el) 25.4 % LVAd ap2 47.6 cm\S\2 LVLd ap2 8.1 cm EDV(MOD-sp2) 225.7 ml EDV(sp2-el) 237.5 ml LVAs ap2 40.2 cm\S\2 LVLs ap2 7.9 cm ESV(MOD-sp2) 163.8 ml ESV(sp2-el) 173.8 ml EF(MOD-sp2) 27.4 % EF(sp2-el) 26.8 % LVLd %diff -8.25 % EDV(MOD-bp) 223.9 ml LVLs %diff -10.01 % ESV(MOD-bp) 166.0 ml EF(MOD-bp) 25.9 % SV(MOD-sp4) 53.7 ml SI(MOD-sp4) 24.7 ml/m\S\2 SV(MOD-sp2) 61.9 ml SI(MOD-sp2) 28.5 ml/m\S\2 SV(MOD-bp) 57.9 ml SI(MOD-bp) 26.6 ml/m\S\2 SV(sp4-el) 59.9 ml SI(sp4-el) 27.6 ml/m\S\2 SV(sp2-el) 63.7 ml SI(sp2-el) 29.3 ml/m\S\2 Doppler Measurements and Calculations MV E max shashank 55.9 cm/sec MV A max shashank 78.1 cm/sec MV E/A 0.72 MV P1/2t max shashank 57.8 cm/sec MV P1/2t 45.4 msec MVA(P1/2t) 4.8 cm\S\2 MV dec slope 372.7 cm/sec\S\2 MV dec time 0.18 sec Ao V2 max 113.0 cm/sec Ao max PG 5.1 mmHg Ao max PG (full) 3.1 mmHg CYRIL(V,A) 2.3 cm\S\2 CYRIL(V,D) 2.3 cm\S\2 AI max shashank 422.8 cm/sec AI max PG 71.5 mmHg AI dec slope 157.3 cm/sec\S\2 AI P1/2t 787.0 msec LV V1 max PG 2.0 mmHg LV V1 max 71.6 cm/sec MR max shashank 466.1 cm/sec MR max PG 86.9 mmHg PA V2 max 69.9 cm/sec PA max PG 2.0 mmHg TR max shashank 268.3 cm/sec
[2017-06-07] MEDS ORDERED: SODIUM CHLOR 0.45% + 20MEQ KCL 1,000 ML IV SCH (11:45)
[2017-06-07 13:36] LABS: CALCIUM 8.7 mg/dl (8.5-10.1); CREATININE 2.6 mg/dl (0.60-1.40); PHOSPHORUS 2.5 mg/dl (2.5-4.9)
[2017-06-07] MEDS ORDERED: INSULIN HUMAN REGULAR PER UNIT 5 UNITS in SYRINGE 4.95 ML IV SCH (14:00)
[2017-06-07] MEDS ORDERED: SODIUM CHLORIDE 0.9% 1000ML 1,000 ML IV ONE (14:30)
--- NOTE | 2017-06-07 15:00 | Progress Note ---
Internal Med Progress Note Date of Service: Jun 07, 2017. Provider Documentation: SUBJECTIVE: The patient was seen and examined Admitted with symptoms of Hyperglycemia with H/O Diet controlled DM Did have some abdominal Pain NO Fever/chills BS was >700 on admission Feels better following admission OBJECTIVE: Vital Signs-as noted below Exam: General-No distress at rest Eyes-normal ENT-normal Neck-supple Lungs-Clear to ausucltate bilaterally Heart-Regular Abdomen-Benign,no masses,bowel sound present Extremities-No edema Neuro-AAOx3 Generally weak Lab data as noted below. ASSESSMENT & PLAN: HHS Pt with hx diet controlled DM II. HA1c was 7.6 on 05/02/17. He completed a course of prednisone 20mg x 5 days for foot pain on 05/02/17. In ER Glucose: 679, K: 4.8, Beta-hydroxybutyric acid: 2.3. ABG: pH: 7.3, pCO2: 46, pO2: 74, HCO3: 23. Pt given IV insulin R 10U and [address] of the Abdomen-negative for any Diverticulitis UA-negative Pharmacy glycemic consult Will need More Fluid and Less IV insulin to control HHS Monitor PRP and Electrolytes PSEUDOHYPONATREMIA Corrected Na is 135 for Glucose of 679 -continue to monitor DONYA on CKD IV Cr: 3.12 (baseline ~2.2). Pt dehydrated. -IVF increased cautiously ,Check CXR in AM -continue to monitor -avoid nephrotoxic agents when possible -hold lisinopril -nephrology consult ISCHEMIC CARDIOMYOPATHY, CHRONIC SYSTOLIC HF Pt with chronic low EF. Echo 09/07: EF: 25-30%, moderate aortic regurgitation, global LF hypokinesis. No increased edema, no SOB, CP or palpitations -holding Lasix for now -ECHO::The left ventricle is mildly dilated. * There is severe concentric left ventricular hypertrophy. * Left ventricular systolic function is severely reduced. * Apical wall motion abnormality may reflect pacemaker activation. * There is inferior wall akinesis. * There is posterior wall akinesis. * There is severe global hypokinesis of the left ventricle. * Ejection Fraction = 20-25%. * Aortic valve sclerosis mild, without significant aortic valvular stenosis. * Mild aortic regurgitation. * There is moderate mitral regurgitation. CXR in AM HX PAROXYSMAL VT with ICD IMPLANTATION Hx ventricular and atrial arrhythmia. On amiodarone. dual paced on EKG. No CP, SOB, edema, ICD firing. -continue amiodarone CAD S/P CABG Hx CABG 1996. No CP or SOB -continue metoprolol, Imdur, atorvastatin, gemfibrozil BACK PAIN, LLE RADICULOPATHY pt with hx, followed by Dr Shah. Suspect flare from bowling last week -continue gabapentin and continue to monitor HYPOTHYROIDISM TSH: 0.81 on 05/02/17 -continue levothyroxine BPH -continue Avodart GOUT Will hold for now DVT Prophylaxis -heparin SQ Disposition admit tele Full Code as per discussion with pt Follows with Dr Watt for routine care Vital Signs: Date Time Temp Pulse Resp B/P (MAP) Pulse Ox O2 Delivery O2 Flow Rate FiO2 06/07/17 12:00 Room Air 06/07/17 11:48 36.9 60 16 93/56 (68) 93 Room Air 06/07/17 10:26 Room Air 06/07/17 08:20 36.7 61 19 155/83 (107) 95 06/07/17 08:00 Room Air 06/07/17 04:00 92 Room Air 06/07/17 03:19 36.6 60 20 123/62 (82) 92 Room Air 06/06/17 23:59 95 Room Air 06/06/17 23:45 37.6 60 17 116/62 (80) 92 Room Air 06/06/17 20:00 95 Room Air 06/06/17 19:37 36.9 20 92/52 (65) 93 Room Air 06/06/17 19:08 36.9 60 20 110/57 (74) 95 Room Air 06/06/17 16:38 37.0 60 16 118/54 94 Room Air 06/06/17 16:15 36.6 60 18 111/59 93 06/06/17 15:31 60 18 111/59 93 Room Air Lab Results: Results Past 24 Hours Test 06/06/17 15:03 06/06/17 16:55 06/06/17 16:58 06/06/17 18:02 Range/Units Bedside Glucose 525 444 459 70-99 mg/dl Venous Blood pH 7.31 7.36-7.41 Sodium Level 129 136-145 mmol/L Potassium Level 4.5 3.5-5.1 mmol/L Chloride Level 99 98-107 mmol/L Carbon Dioxide Level 24 21-32 mmol/L Anion Gap 6.0 3-11 mmol/L Blood Urea Nitrogen 43 7-18 mg/dl Creatinine 2.76 0.60-1.40 mg/dl Est Creatinine Clear Calc Drug Dose 25.4 ml/min Estimated GFR () 24.0 Estimated GFR (Non- 20.7 BUN/Creatinine Ratio 15.6 10-20 Random Glucose 435 70-99 mg/dl Calcium Level 9.2 8.5-10.1 mg/dl Phosphorus Level 2.5 2.5-4.9 mg/dl Magnesium Level 2.6 1.8-2.4 mg/dl Beta-Hydroxybutyric Acid 0.94 0.2-2.81 mg/dL Thyroid Stimulating Hormone (TSH) 0.771 0.300-4.500 uIu/ml Test 06/06/17 19:06 06/06/17 20:05 06/06/17 20:12 06/06/17 21:07 Range/Units Bedside Glucose 388 276 252 70-99 mg/dl Venous Blood pH 7.34 7.36-7.41 Sodium Level 132 136-145 mmol/L Potassium Level 4.5 3.5-5.1 mmol/L Chloride Level 99 98-107 mmol/L Carbon Dioxide Level 25 21-32 mmol/L Anion Gap 8.0 3-11 mmol/L Blood Urea Nitrogen 45 7-18 mg/dl Creatinine 3.07 0.60-1.40 mg/dl Est Creatinine Clear Calc Drug Dose 22.8 ml/min Estimated GFR () 21.1 Estimated GFR (Non- 18.2 BUN/Creatinine Ratio 14.7 10-20 Random Glucose 282 70-99 mg/dl Calcium Level 8.8 8.5-10.1 mg/dl Phosphorus Level 2.4 2.5-4.9 mg/dl Magnesium Level 2.6 1.8-2.4 mg/dl Test 06/06/17 22:06 06/06/17 22:45 06/06/17 23:04 06/06/17 23:44 Range/Units Bedside Glucose 222 215 70-99 mg/dl Urine Color YELLOW Urine Appearance CLEAR CLEAR Urine pH 5.0 4.5-7.5 Urine Specific [place] 1.027 1.000-1.030 Urine Protein NEG NEG Urine Glucose (UA) 3+ NEG Urine Ketones NEG NEG Urine Occult Blood NEG NEG Urine Nitrite NEG NEG Urine Bilirubin NEG NEG Urine Urobilinogen NEG NEG Urine Leukocyte Esterase NEG NEG Venous Blood pH 7.31 7.36-7.41 Sodium Level 134 136-145 mmol/L Potassium Level 4.6 3.5-5.1 mmol/L Chloride Level 100 98-107 mmol/L Carbon Dioxide Level 29 21-32 mmol/L Anion Gap 5.0 3-11 mmol/L Blood Urea Nitrogen 46 7-18 mg/dl Creatinine 2.82 0.60-1.40 mg/dl Est Creatinine Clear Calc Drug Dose 24.9 ml/min Estimated GFR () 23.4 Estimated GFR (Non- 20.2 BUN/Creatinine Ratio 16.2 10-20 Random Glucose 217 70-99 mg/dl Calcium Level 8.8 8.5-10.1 mg/dl Phosphorus Level 2.3 2.5-4.9 mg/dl Magnesium Level 2.6 1.8-2.4 mg/dl Test 06/07/17 00:05 06/07/17 00:55 06/07/17 02:24 06/07/17 03:15 Range/Units Bedside Glucose 235 234 230 269 70-99 mg/dl Test 06/07/17 03:54 06/07/17 04:00 06/07/17 05:06 06/07/17 07:01 Range/Units White Blood Count 3.89 4.8-10.8 K/uL Red Blood Count 3.78 4.7-6.1 M/uL Hemoglobin 12.7 14.0-18.0 g/dL Hematocrit 35.7 42-52 % Mean Corpuscular Volume 94.4 80-100 fL Mean Corpuscular Hemoglobin 33.6 25-34 pg Mean Corpuscular Hemoglobin Concent 35.6 32-36 g/dl RDW Standard Deviation 47.3 36.4-46.3 fL RDW Coefficient of Variation 13.7 11.5-14.5 % Platelet Count 116 130-400 K/uL Mean Platelet Volume 11.4 7.4-10.4 fL Venous Blood pH 7.30 7.36-7.41 Sodium Level 133 136-145 mmol/L Potassium Level 4.8 3.5-5.1 mmol/L Chloride Level 101 98-107 mmol/L Carbon Dioxide Level 27 21-32 mmol/L Anion Gap 5.0 3-11 mmol/L Blood Urea Nitrogen 44 7-18 mg/dl Creatinine 2.73 0.60-1.40 mg/dl Est Creatinine Clear Calc Drug Dose 25.7 ml/min Estimated GFR () 24.4 Estimated GFR (Non- 21.0 BUN/Creatinine Ratio 16.2 10-20 Random Glucose 252 70-99 mg/dl Calcium Level 8.8 8.5-10.1 mg/dl Phosphorus Level 2.4 2.5-4.9 mg/dl Magnesium Level 2.6 1.8-2.4 mg/dl Bedside Glucose 257 269 280 70-99 mg/dl Test 06/07/17 08:22 06/07/17 09:01 06/07/17 09:07 06/07/17 10:13 Range/Units Sodium Level 132 136-145 mmol/L Potassium Level 4.6 3.5-5.1 mmol/L Chloride Level 99 98-107 mmol/L Carbon Dioxide Level 25 21-32 mmol/L Anion Gap 8.0 3-11 mmol/L Blood Urea Nitrogen 40 7-18 mg/dl Creatinine 2.54 0.60-1.40 mg/dl Est Creatinine Clear Calc Drug Dose 26.4 ml/min Estimated GFR () 26.6 Estimated GFR (Non- 22.9 BUN/Creatinine Ratio 15.6 10-20 Random Glucose 331 70-99 mg/dl Calcium Level 8.9 8.5-10.1 mg/dl Phosphorus Level 2.6 2.5-4.9 mg/dl Magnesium Level 2.5 1.8-2.4 mg/dl Beta-Hydroxybutyric Acid 0.83 0.2-2.81 mg/dL Chemistry Specimen Hemolysis Venous Blood pH 7.31 7.36-7.41 Bedside Glucose 399 419 70-99 mg/dl Test 06/07/17 11:18 06/07/17 12:34 06/07/17 12:37 06/07/17 12:45 Range/Units Bedside Glucose 427 403 70-99 mg/dl Sodium Level 131 136-145 mmol/L Potassium Level 5.0 3.5-5.1 mmol/L Chloride Level 100 98-107 mmol/L Carbon Dioxide Level 22 21-32 mmol/L Anion Gap 9.0 3-11 mmol/L Blood Urea Nitrogen 40 7-18 mg/dl Creatinine 2.60 0.60-1.40 mg/dl Est Creatinine Clear Calc Drug Dose 25.8 ml/min Estimated GFR () 25.8 Estimated GFR (Non- 22.3 BUN/Creatinine Ratio 15.4 10-20 Random Glucose 431 70-99 mg/dl Calcium Level 8.7 8.5-10.1 mg/dl Phosphorus Level 2.5 2.5-4.9 mg/dl Magnesium Level 2.6 1.8-2.4 mg/dl Beta-Hydroxybutyric Acid 0.58 0.2-2.81 mg/dL Venous Blood pH 7.26 7.36-7.41 Test 06/07/17 13:35 06/07/17 14:31 Range/Units Bedside Glucose 465 401 70-99 mg/dl
--- NOTE | 2017-06-07 15:21 | NEPHROLOGY CONSULTATION ---
DATE OF CONSULTATION: 06/07/2017 ATTENDING OF RECORD: Dr. Ceullo. REASON FOR CONSULTATION: DONYA. HISTORY OF PRESENT ILLNESS: This is an 82-year-old male with underlying CKD stage IV with heart disease and diabetes, who follows with me in an outpatient clinic, last seen in February of last year with a right kidney of 10.3 cm and the left kidney of 11.3 cm with CKD from a combination of cardiomyopathy with an EF of 35% and advanced age. He does have a history of a CABG x3 about 15 years ago with defibrillator. He has a history of BPH with TURP x1 in 2007 and again one in 2003. He does have poor urinary flows and follows with urology. No myeloma. No tobacco. No NSAIDs. He did have a TIA in November of 2014 and has been on Plavix since then and does have a history of gout, on allopurinol with no recent attacks. The patient complains of chronic leg weakness and chronic back pain, but presented at this time with abdominal pain. The patient's creatinine intensity in the low 2's and comes in at 3.12 and has trended down to 2.6. The patient underwent an abdomen and pelvis CT, which showed mild colonic diverticulosis and bilateral nonobstructing kidney stones, but no acute abnormality identified. The patient is on IV fluids and insulin. The patient's main complaint currently is constipation. Abdominal pain has improved at this time. PAST MEDICAL HISTORY: CKD stage IV, baseline creatinine of 2, coronary artery disease with a history of bypass as well as a defibrillator, history of TIA, BPH, hypertension, spinal stenosis, hyperlipidemia, gout, paroxysmal V-tach on amiodarone, and hypothyroidism. PAST SURGICAL HISTORY: CABG x3, defibrillator, tonsillectomy, and TURP x2. FAMILY HISTORY: Heart disease, diabetes, stroke, and cancer. SOCIAL HISTORY: with 3 kids. No smoking. Occasional beer. No drugs. Lives at home with . REVIEW OF SYSTEMS: Positive fatigue. Positive abdominal pain. Positive constipation. Positive low back pain. Positive poor urinary flows. Positive chronic leg weakness. No rash or itching. No seizures or tremors. No nausea or vomiting. No chest pain or shortness of breath. No edema. No swelling in the neck. No headaches. No change in weight. No fevers or chills. All other review of systems otherwise negative. CURRENT MEDICATIONS: The patient is on normal saline, insulin, allopurinol 300 mg a day, amiodarone 100 mg day, aspirin 325 daily, vitamin D 2000 units daily, vitamin B12 of 500 mcg daily, Imdur 30 mg daily, Toprol-XL 100 mg daily, Synthroid 125 mcg daily, heparin 5000 units subQ q. 12 hours, Lipitor 80 mg at night, Neurontin 400 mg at night, gemfibrozil 600 mg p.o. b.i.d., and sliding scale insulin. PHYSICAL EXAMINATION: VITAL SIGNS: Temperature 36.9, pulse 60, respiratory rate 16, blood pressure 93/56, and satting 93% on room air. GENERAL: Awake, alert, and oriented x3. EYES: No scleral icterus. ENT: Moist mucous membranes. NECK: Supple. PULMONARY: Clear to auscultation. CARDIAC: Regular rate and rhythm. ABDOMEN: Bowel sounds positive. Soft, nontender, and nondistended. EXTREMITIES: No significant clubbing, cyanosis or edema. NEUROLOGICALLY: Nonfocal. DERMATOLOGIC: No rash or ulcers noted. LABORATORY DATA: Sodium level is 131, potassium is 5, chloride is 100, bicarbonate is 22, BUN is 40, creatinine is 2.6, glucose 465, mag is 2.6, phosphorus 2.5, and calcium 8.7. White count is 3.8, H&H 12 and 35, and platelet count is 116. INR is 1. UA shows 3+ glucose, specific gravity 1.027, pH of 5, no blood, and no protein. VBG shows a pH of 7.26. IMPRESSION AND PLAN: Acute kidney injury in the setting of chronic kidney disease stage IV with baseline creatinine of 2 and comes in with a creatinine above 3 and has trended down to 2.6. Tolerating the IV fluids well. May have had an element of volume depletion. There is a questionable concern for diverticulitis; however, CT scan was unimpressive. Would continue current hydration and with tentative plans to stop IV fluids tomorrow when creatinine likely closer to baseline. No indication for emergent dialysis. Creatinine is improving through IV fluids and there was likely element of volume depletion contributing to the acute kidney injury. Unclear cause of the abdominal pain; however, the patient does suffer from chronic constipation and would benefit from medications to help move his bowels. I appreciate the consultation.
[2017-06-07] MEDS: SODIUM CHLORIDE 0.9% 1000ML 1,000 ML IV SCH (15:30)
[2017-06-07] MEDS: INSULIN REGULAR 250 UNITS in SODIUM CHLORIDE 0.9% 250ML 250 ML IV SCH (15:32)
[2017-06-07 19:18] LABS: CALCIUM 8.1 mg/dl (8.5-10.1); CREATININE 2.58 mg/dl (0.60-1.40); POTASSIUM 4.8 mmol/L (3.5-5.1)
[2017-06-07] MEDS: ATORVASTATIN 40 MG TAB PO SCH (21:15)
[2017-06-07] MEDS: GABAPENTIN 400 MG CAP PO SCH (21:16)
[2017-06-08] MEDS: SODIUM CHLORIDE 0.9% 1000ML 1,000 ML IV SCH ×3 (01:02→15:00)
[2017-06-08 02:48] VITALS: BP 115/66; PULSE 66; TEMP 36.8; O2SAT 96
[2017-06-08] MEDS: LEVOTHYROXINE 125 MCG TAB PO SCH (05:59)
[2017-06-08 07:27] LABS: CALCIUM 8.3 mg/dl (8.5-10.1); CREATININE 2.2 mg/dl (0.60-1.40); PHOSPHORUS 2.7 mg/dl (2.5-4.9); POTASSIUM 4.3 mmol/L (3.5-5.1)
[2017-06-08 07:35] VITALS: BP 150/77; PULSE 60; TEMP 36.5; O2SAT 99
[2017-06-08] MEDS: GEMFIBROZIL 600 MG TAB PO SCH ×2 (07:36→21:12)
[2017-06-08] MEDS: AMIODARONE 200 MG TAB PO SCH (07:37)
[2017-06-08] MEDS: ISOSORBIDE MONONITRATE 30 MG TABCR PO SCH (07:37)
[2017-06-08] MEDS: CHOLECALCIFEROL 1000 INTER.UNIT TAB PO SCH (07:38)
[2017-06-08] MEDS: CYANOCOBALAMIN 500 MCG TAB (VIT B-12) PO SCH (07:38)
[2017-06-08] MEDS: METOPROLOL SUCC 50MG EXT REL TAB PO SCH (07:38)
[2017-06-08] MEDS: ASPIRIN 325 MG ECTAB PO SCH (07:38)
[2017-06-08] MEDS: DUTASTERIDE 0.5MG PO SCH (07:39)
[2017-06-08] MEDS ORDERED: LANTUS PER UNIT CHARGE SQ ONE ×2 (07:45→13:15)
--- NOTE | 2017-06-08 08:02 | DIAGNOSTIC IMAGING REPORT ---
CHEST ONE VIEW PORTABLE CLINICAL HISTORY: Congestive heart failure. COMPARISON STUDY: Chest radiograph February 19, 2017. FINDINGS: A left subclavian pacer/AICD and median sternotomy wires are noted. Moderate cardiomegaly is noted. There is no evidence for pulmonary edema. No pneumothorax or pleural effusion is noted. There is no consolidation to suggest pneumonia. IMPRESSION: 1. No acute cardiopulmonary findings. 2. Moderate cardiomegaly. Electronically signed by: Bimal Griffiths M.D. 06/08/2017 8:01 AM Dictated Date/Time: 06/08/2017 8:00 AM
[2017-06-08] MEDS: INSULIN ASPART 100 UNITS/ML 3 ML PEN SC SCH ×4 (08:25→21:21)
[2017-06-08] MEDS: HEPARIN SOD 5000 UNIT/0.5 ML CARP SQ SCH ×2 (08:29→21:22)
--- NOTE | 2017-06-08 11:46 | Pharmacy Progress Note ---
Pharmacy Glycemic Short Note 2 Date of Service Jun 08, 2017. OUTPATIENT ANTIDIABETIC REGIMEN: * n/a - diet controlled ASSESSMENT: 06/07/17 * 82yo T2DM male with HHS possibly secondary to recent prednisone taper ( - 05/09/17). * A1c yesterday is most likely artificially inflated due to significantly high BSGs over the past few weeks with prednisone. * A1c 7.6% on 05/02/17 which is in goal range of A1c <8% based on age/ comorbidities. * Hydration + IV insulin infusion initiated per HHS protocol/guidelines * Gentle hydration used secondary to low EF * Initial IV insulin infusion goal range used: 250-350mg/dl in order to maintain BSG ~ 300 mg/dl until metabolic abnormalities correct * Potassium will be incorporated into IVF when K+ drops below the upper limit of normal due to total body potassium deficiency * Dextrose will be incorporated into IVF to avoid hypoglycemia while insulin administration continues to correct HHS * Will start the transition process from IV to SQ when patient meets criteria. 06/08/17 * Patient on day #3 of insulin drip, has been on hold since 0400 this AM for BSGs below goal. Prior rates at 0.8 units/hr. * BSGs have improved significantly since yesterday with additional fluids and IV insulin * Patient meets criteria for transition to SQ -> will give 0.2 units/kg of Lantus x 1, with further doses guided by BSGs * Will use weight/stress of 2 from insulin calculator estimates for CF/CR - tightened CR of 8 yesterday seemed to work well PLAN FOR INPATIENT GLYCEMIC CONTROL: * d/c insulin drip - has been on hold per insulin drip calculator * Basal insulin * Lantus 20 units x 1 - further dosing dependent on BSGs/plan for discharge * Bolus insulin * NovoLog per scale ACHS + 0200 check in case more basal is necessary * Goal Range: Low 110 mg/dL - High 150 mg/dL * Correction Factor: 25 mg/dL/unit * Nutritional / Prandial insulin per carb ratio of 1 unit per 8 grams CHO consumed PLAN FOR DISCHARGE: * As per reports from CDE yesterday, patient is agreeable to insulin. Will wait until they meet with him today to determine what type of insulin on discharge.
[2017-06-08 12:12] VITALS: BP 150/77; PULSE 60; TEMP 36.7; O2SAT 94
[2017-06-08] MEDS ORDERED: INSULIN HUMAN REGULAR PER UNIT 5 UNITS in SYRINGE 4.95 ML IV ONE (13:15)
[2017-06-08 13:37] VITALS: BP 150/77
[2017-06-08 14:16] VITALS: BMI 30.4
[2017-06-08 15:52] VITALS: BP 149/79; PULSE 60; TEMP 36.8; O2SAT 97
--- NOTE | 2017-06-08 18:07 | Progress Note ---
Internal Med Progress Note Date of Service: Jun 08, 2017. Provider Documentation: SUBJECTIVE: resting comfortably eating ok no abdominal pain no nausea afebrile no sob or chest pain OBJECTIVE: Vital Signs-as noted below Exam: General-alert and oriented. Not in distress ENT-normal hearing Neck-no neck masses Lungs-cta b/l no wheezing or crackles Heart-s1 and s2 heard regular rate and rhythm no murmurs Abdomen-soft bowel sounds present non tender no distension Extremities-no edema no erythema Neuro-alert and awake moves extremities Lab data as noted below. ASSESSMENT & PLAN: HHS hx diet controlled DM II. HA1c was 7.6 on 05/02/17. recent completion of course of prednisone received iv fluids and iv insulin CT of the Abdomen-negative for any Diverticulitis UA-negative Pharmacy glycemic consult hba1c 13.4. needs insulin on discharge diabetic education currently received one dose of Lantus and on iss will cut back on fluids appreciate pharmacy inputs continue to monitor PSEUDOHYPONATREMIA Corrected Na is 135 for Glucose of 679 reolved DONYA on CKD IV Cr: 3.12 (baseline ~2.2). Pt dehydrated. lisinopril on hold received fluids cr 2.2 today ISCHEMIC CARDIOMYOPATHY, CHRONIC SYSTOLIC HF Pt with chronic low EF. Echo 09/07: EF: 25-30%, moderate aortic regurgitation, global LF hypokinesis. holding Lasix for now on fluids close monitor for volume overload. HX PAROXYSMAL VT with ICD IMPLANTATION Hx ventricular and atrial arrhythmia. On amiodarone. dual paced on EKG. will monitor CAD S/P CABG Hx CABG 1996. stable on metoprolol, Imdur, atorvastatin, gemfibrozil BACK PAIN, LLE RADICULOPATHY pt with hx, followed by Dr Shah. Suspect flare from bowling last week to continue gabapentin and continue to monitor HYPOTHYROIDISM TSH: 0.81 on 05/02/17 on levothyroxine BPH on Avodart GOUT Will hold for now DVT Prophylaxis heparin SQ Disposition monitor in tele pt/ot to be determined Vital Signs: Date Time Temp Pulse Resp B/P (MAP) Pulse Ox O2 Delivery O2 Flow Rate FiO2 06/08/17 16:00 Room Air 06/08/17 15:52 36.8 60 20 149/79 (102) 97 Room Air 06/08/17 13:08 Room Air 06/08/17 12:12 36.7 60 18 150/77 (101) 94 Room Air 06/08/17 12:00 Room Air 06/08/17 08:00 Room Air 06/08/17 07:35 36.5 60 16 150/77 (101) 99 Room Air 06/08/17 04:00 Room Air 06/08/17 02:48 36.8 66 17 115/66 (82) 96 Room Air 06/08/17 00:01 Room Air 06/07/17 23:52 36.7 61 18 143/78 (99) 93 Room Air 06/07/17 20:00 Room Air 06/07/17 19:04 36.8 60 22 111/57 (75) 93 Room Air Lab Results: Results Past 24 Hours Test 06/07/17 18:32 06/07/17 18:34 06/07/17 19:30 06/07/17 19:55 Range/Units Sodium Level 134 136-145 mmol/L Potassium Level 4.8 3.5-5.1 mmol/L Chloride Level 104 98-107 mmol/L Carbon Dioxide Level 22 21-32 mmol/L Anion Gap 8.0 3-11 mmol/L Blood Urea Nitrogen 41 7-18 mg/dl Creatinine 2.58 0.60-1.40 mg/dl Est Creatinine Clear Calc Drug Dose 26.0 ml/min Estimated GFR () 26.1 Estimated GFR (Non- 22.5 BUN/Creatinine Ratio 15.8 10-20 Random Glucose 245 70-99 mg/dl Calcium Level 8.1 8.5-10.1 mg/dl Magnesium Level 2.4 1.8-2.4 mg/dl Chemistry Specimen Hemolysis Bedside Glucose 253 209 164 70-99 mg/dl Test 06/07/17 20:26 06/07/17 21:58 06/07/17 23:04 06/07/17 23:48 Range/Units Bedside Glucose 147 112 103 134 70-99 mg/dl Test 06/08/17 00:04 06/08/17 00:21 06/08/17 00:57 06/08/17 02:02 Range/Units Bedside Glucose 141 145 130 132 70-99 mg/dl Test 06/08/17 02:47 06/08/17 03:57 06/08/17 04:59 06/08/17 05:17 Range/Units Bedside Glucose 131 125 133 128 70-99 mg/dl Test 06/08/17 05:56 06/08/17 06:22 06/08/17 06:54 06/08/17 10:54 Range/Units Bedside Glucose 150 150 297 70-99 mg/dl Sodium Level 137 136-145 mmol/L Potassium Level 4.3 3.5-5.1 mmol/L Chloride Level 108 98-107 mmol/L Carbon Dioxide Level 22 21-32 mmol/L Anion Gap 7.0 3-11 mmol/L Blood Urea Nitrogen 34 7-18 mg/dl Creatinine 2.20 0.60-1.40 mg/dl Est Creatinine Clear Calc Drug Dose 31.2 ml/min Estimated GFR () 31.6 Estimated GFR (Non- 27.3 BUN/Creatinine Ratio 15.2 10-20 Random Glucose 144 70-99 mg/dl Calcium Level 8.3 8.5-10.1 mg/dl Phosphorus Level 2.7 2.5-4.9 mg/dl Magnesium Level 2.4 1.8-2.4 mg/dl
[2017-06-08 20:27] VITALS: BP 149/78; PULSE 60; TEMP 36.8; O2SAT 96
[2017-06-08] MEDS: GABAPENTIN 400 MG CAP PO SCH (21:12)
[2017-06-08] MEDS: ATORVASTATIN 40 MG TAB PO SCH (21:13)
[2017-06-09 00:32] VITALS: BP 135/72; PULSE 60; TEMP 37; O2SAT 93
[2017-06-09] MEDS ORDERED: INSULIN ASPART 100 UNITS/ML 3 ML PEN SC ONE (02:00)
[2017-06-09] MEDS: SODIUM CHLORIDE 0.9% 1000ML 1,000 ML IV SCH (02:55)
[2017-06-09 04:22] VITALS: BP 132/70; PULSE 63; TEMP 36.9; O2SAT 94
[2017-06-09] MEDS: LEVOTHYROXINE 125 MCG TAB PO SCH (05:48)
[2017-06-09 06:56] LABS: CALCIUM 8.8 mg/dl (8.5-10.1); CREATININE 2.03 mg/dl (0.60-1.40); PHOSPHORUS 2.6 mg/dl (2.5-4.9); POTASSIUM 4.5 mmol/L (3.5-5.1)
--- NOTE | 2017-06-09 07:13 | Nephrology Progress Note ---
Nephrology Progress Note Date of Service: Jun 09, 2017. Subjective 82 yo male seen with donya and given iv fluids. creatinine back to baseline. pt feels good and hoping to leave today. trying to control blood sugars. appetite is good. walked around yesterday. no sob. Objective Date Time Temp Pulse Resp B/P (MAP) Pulse Ox O2 Delivery O2 Flow Rate FiO2 06/09/17 04:22 36.9 63 15 132/70 (90) 94 Room Air 06/09/17 04:00 Room Air 06/09/17 00:32 37.0 60 20 135/72 (93) 93 Room Air 06/08/17 23:59 Room Air 06/08/17 20:27 36.8 60 20 149/78 (101) 96 Room Air 06/08/17 20:00 Room Air 06/08/17 16:00 Room Air 06/08/17 15:52 36.8 60 20 149/79 (102) 97 Room Air 06/08/17 13:08 Room Air 06/08/17 12:12 36.7 60 18 150/77 (101) 94 Room Air 06/08/17 12:00 Room Air 06/08/17 08:00 Room Air 06/08/17 07:35 36.5 60 16 150/77 (101) 99 Room Air Physical Exam: General-aaox3 Eyes-no scleral icterus ENT-mmm Neck-supple Lungs-cta Heart-rrr Abdomen-bs+ s/nt/nd Extremities-no c/c/e Neuro-nonfocal Current Inpatient Medications Medications (Trade) Dose Ordered Sig/Aleida Route Start Time Stop Time Status Last Admin Dose Admin Ioversol (Optiray 320) 100 ml UD PRN IV 06/06/17 12:30 06/10/17 12:29 Heparin Sodium (Porcine) (Heparin Sq 5000 Unit/0.5ml) 5,000 unit Q12 SQ 06/06/17 21:00 07/06/17 20:59 06/08/17 21:22 5,000 UNIT Acetaminophen (Tylenol Tab) 650 mg Q4H PRN PO 06/06/17 14:30 07/06/17 14:29 Nitroglycerin (Nitrostat Tab) 0.4 mg UD PRN SL 06/06/17 14:30 07/06/17 14:29 Polyethylene (Miralax Powder Packet) 17 gm DAILY PRN PO 06/06/17 14:30 07/06/17 14:29 06/07/17 14:52 17 GM Miscellaneous Information (Consult Glycemic Management Pharmacy) 1 ea UD PRN N/A 06/06/17 14:30 07/06/17 14:29 Allopurinol (Zyloprim Tab) 300 mg DAILY PO 06/07/17 09:00 07/07/17 08:59 Future Hold 06/07/17 08:26 300 MG Amiodarone HCl (Cordarone Tab) 100 mg DAILY PO 06/07/17 09:00 07/07/17 08:59 06/08/17 07:37 100 MG Aspirin (Ecotrin Tab) 325 mg DAILY PO 06/07/17 09:00 07/07/17 08:59 06/08/17 07:38 325 MG Atorvastatin Calcium (Lipitor Tab) 80 mg HS PO 06/06/17 21:00 07/06/17 20:59 06/08/17 21:13 80 MG Cholecalciferol (Vitamin D Tab) 2,000 inter.unit DAILY PO 06/07/17 09:00 07/07/17 08:59 06/08/17 07:38 2,000 INTER.UNIT Cyanocobalamin (Vitamin B-12 Tab) 500 mcg DAILY PO 06/07/17 09:00 07/07/17 08:59 06/08/17 07:38 500 MCG Gabapentin (Neurontin Cap) 400 mg HS PO 06/06/17 21:00 07/06/17 20:59 06/08/17 21:12 400 MG Gemfibrozil (Lopid Tab) 600 mg BID PO 06/06/17 21:00 07/06/17 20:59 06/08/17 21:12 600 MG Isosorbide Mononitrate (Imdur Ext Rel Tab) 30 mg DAILY PO 06/07/17 09:00 07/07/17 08:59 06/08/17 07:37 30 MG Levothyroxine Sodium (Synthroid Tab) 125 mcg DAILYBB PO 06/07/17 06:00 07/07/17 05:59 06/09/17 05:48 125 MCG Metoprolol Succinate (Toprol Xl Tab) 100 mg QAM PO 06/07/17 09:00 07/07/17 08:59 06/08/17 07:38 100 MG Glucose (Glucose 40% Gel) 15-30 GRAMS 15 GRAMS... UD PRN PO 06/06/17 16:00 07/06/17 15:59 Glucose (Glucose Chew Tab) 4-8 Tablets 4 Tabl... UD PRN PO 06/06/17 16:00 07/06/17 15:59 Dextrose (Dextrose 50% 50ML Syringe) 25-50ML OF 50% DW IV FOR... UD PRN IV 06/06/17 16:00 07/06/17 15:59 06/07/17 23:26 25 ML Glucagon (Glucagon Inj) 1 mg UD PRN SQ 06/06/17 16:00 07/06/17 15:59 Sodium Chloride 1,000 ml @ 75 mls/hr [id number] IV 06/07/17 15:00 07/07/17 14:59 06/09/17 02:55 75 MLS/HR Dutasteride (Avodart) 0.5 mg DAILY PO 06/08/17 09:00 07/08/17 08:59 06/08/17 07:39 0.5 MG Insulin Aspart (novoLOG ASPART) SLIDING SCALE ACHS SC 06/08/17 07:45 07/08/17 07:44 06/08/17 21:21 1 UNITS Last 24 Hours Test 06/08/17 10:54 06/08/17 16:01 06/08/17 20:55 06/09/17 02:52 Bedside Glucose 297 mg/dl 148 mg/dl 163 mg/dl 146 mg/dl Test 06/09/17 06:20 06/09/17 06:51 Venous Blood pH 7.33 Sodium Level 140 mmol/L Potassium Level 4.5 mmol/L Chloride Level 111 mmol/L Carbon Dioxide Level 22 mmol/L Anion Gap 8.0 mmol/L Blood Urea Nitrogen 31 mg/dl Creatinine 2.03 mg/dl Est Creatinine Clear Calc Drug Dose 33.8 ml/min Estimated GFR () 34.8 Estimated GFR (Non- 30.1 BUN/Creatinine Ratio 15.1 Random Glucose 121 mg/dl Calcium Level 8.8 mg/dl Phosphorus Level 2.6 mg/dl Magnesium Level 2.1 mg/dl Bedside Glucose 121 mg/dl Assessment & Plan DONYA on ckd with baseline creatinine of 2. creatinine back to baseline. had element of volume depletion. concerned about volume overload given poor cardiac function. will stop the iv fluids today and restart the outpt diuretic. would recommend rechecking bmp early next week. also would restart the lisinopril now that bp is better.
[2017-06-09 07:53] VITALS: BP 141/73; PULSE 60; TEMP 37; O2SAT 91
[2017-06-09] MEDS: GEMFIBROZIL 600 MG TAB PO SCH (08:04)
[2017-06-09] MEDS: ISOSORBIDE MONONITRATE 30 MG TABCR PO SCH (08:04)
[2017-06-09] MEDS: CHOLECALCIFEROL 1000 INTER.UNIT TAB PO SCH (08:04)
[2017-06-09] MEDS: METOPROLOL SUCC 50MG EXT REL TAB PO SCH (08:04)
[2017-06-09] MEDS: AMIODARONE 200 MG TAB PO SCH (08:05)
[2017-06-09] MEDS: CYANOCOBALAMIN 500 MCG TAB (VIT B-12) PO SCH (08:05)
[2017-06-09] MEDS: ASPIRIN 325 MG ECTAB PO SCH (08:05)
[2017-06-09] MEDS: DUTASTERIDE 0.5MG PO SCH (08:05)
[2017-06-09] MEDS: INSULIN ASPART 100 UNITS/ML 3 ML PEN SC SCH ×2 (08:08→11:42)
[2017-06-09] MEDS: HEPARIN SOD 5000 UNIT/0.5 ML CARP SQ SCH (08:09)
[2017-06-09] MEDS ORDERED: FUROSEMIDE 20 MG TAB PO SCH (09:00)
[2017-06-09] MEDS ORDERED: LANTUS PER UNIT CHARGE SQ SCH (09:00)
[2017-06-09] MEDS ORDERED: LISINOPRIL 10 MG TAB PO SCH (09:00)
--- NOTE | 2017-06-09 10:11 | Pharmacy Progress Note ---
Pharmacy Glycemic Short Note 2 Date of Service Jun 09, 2017. OUTPATIENT ANTIDIABETIC REGIMEN: * n/a - diet controlled ASSESSMENT: 06/07/17 * 82yo T2DM male with HHS possibly secondary to recent prednisone taper ( - 05/09/17). * A1c yesterday is most likely artificially inflated due to significantly high BSGs over the past few weeks with prednisone. * A1c 7.6% on 05/02/17 which is in goal range of A1c <8% based on age/ comorbidities. * Hydration + IV insulin infusion initiated per [facility] protocol/guidelines * Gentle hydration used secondary to low EF * Initial IV insulin infusion goal range used: 250-350mg/dl in order to maintain BSG ~ 300 mg/dl until metabolic abnormalities correct * Potassium will be incorporated into IVF when K+ drops below the upper limit of normal due to total body potassium deficiency * Dextrose will be incorporated into IVF to avoid hypoglycemia while insulin administration continues to correct HHS * Will start the transition process from IV to SQ when patient meets criteria. 06/08/17 * Patient on day #3 of insulin drip, has been on hold since 0400 this AM for BSGs below goal. Prior rates at 0.8 units/hr. * BSGs have improved significantly since yesterday with additional fluids and IV insulin * Patient meets criteria for transition to SQ -> will give 0.2 units/kg of Lantus x 1, with further doses guided by BSGs * Will use weight/stress of 2 from insulin calculator estimates for CF/CR - tightened CR of 8 yesterday seemed to work well 06/09/17 * Patient was successfully transitioned off insulin drip yesterday * His BSGs over the last 24 hours have been near or below goal * Did not require any coverage overnight * Will plan to continue with 25 units of basal - same dose he received yesterday * No change to CF/CR PLAN FOR INPATIENT GLYCEMIC CONTROL: * Basal insulin * Lantus 25 units x 1 - still trying to determine outpatient regimen * Bolus insulin * NovoLog per scale ACHS only * Goal Range: Low 110 mg/dL - High 150 mg/dL * Correction Factor: 25 mg/dL/unit * Nutritional / Prandial insulin per carb ratio of 1 unit per 7 grams CHO consumed PLAN FOR DISCHARGE: * Waiting to hear back from case management regarding outpatient insulin coverage. CDE thought Levemir and Basaglar would both be covered. I also wanted to see if Humulin N (as a pen) would be covered since he seems to need a decent amount of prandial coverage. Would like to stick with pen formulation since he has been shown this and it should be easier for him. * Planning on a once daily dose of insulin on discharge
[2017-06-09 11:54] VITALS: BP 126/69; PULSE 60; TEMP 36.8; O2SAT 95
[2017-06-09] MEDS ORDERED: INSDGIPEN SC ×2 (13:46→13:47)
--- NOTE | 2017-06-09 13:53 | Discharge Instructions ---
Discharge Instructions Date of Service Jun 09, 2017. Admission Reason for Admission: Diabetic Hyperosmolor Non-Ketotic State Discharge Discharge Diagnosis / Problem: Diabetic hyperosmolar non ketotic state Discharge Goals Goal(s): Decrease discomfort, Improve function Activity Recommendations Activity Limitations: resume your previous activity . Instructions / Follow-Up Instructions / Follow-Up FOLLOW UP WITH FAMILY DOCTOR ON May AT 10:45AM LAB: BMP IN ONE WEEK AND FOLLOW RESULTS WITH FAMILY DOCTOR. STARTING ON LANTUS 25UNITS DAILY ONCE SUBCUTANEOUSLY IN AM BEFORE BREAKFAST. TO CHECK BLOOD SUGARS THREE TIMES DAILY BEFORE BREAKFAST, LUNCH AND DINNER AND WRITE THE READINGS IN A BOOK WITH TIME OF READINGS AND SHOW THEM TO FAMILY DOCTOR FOR FURTHER ADJUSTMENTS IN INSULIN REGIMEN. TO CALL FAMILY DOCTOR IF BLOOD SUGARS >350 OR LESS THAN 80. TO TAKE SUGAR OR ORANGE JUICE IF BLOOD SUGARS LESS THAN 80 AND CALL FAMILY DOCTOR. Current Hospital Diet Patient's current hospital diet: AHA Diet (Heart Healthy), Diabetes Type 2 Diet Discharge Diet Recommended Diet: AHA Diet (Heart Healthy), Diabetes Type 2 Diet Pending Studies Studies pending at discharge: no Laboratory Results Hemoglobin A1c Test 06/06/17 12:20 Range/Units Estimated Average Glucose 338 mg/dl Hemoglobin A1c 13.4 H 4.5-5.6 % Medical Emergencies . Who to Call and When: Medical Emergencies: If at any time you feel your situation is an emergency, please call 911 immediately. . Non-Emergent Contact Non-Emergency issues call your: Primary Care Provider . . "Provider Documentation" section prepared by Heladio Brizuela. . VTE Core Measure Inpt VTE Proph given/why not?: Unfractionated heparin SQ
[2017-06-09 14:00] VITALS: BP 126/69; PULSE 60; TEMP 36.8; O2SAT 95
[2017-06-09 14:11] VITALS: BMI 28.5
--- NOTE | 2017-06-09 19:07 | Progress Note ---
Internal Med Progress Note Date of Service: Jun 09, 2017. Provider Documentation: SUBJECTIVE: resting comfortably no pain ambulating fine no nausea or abdominal pain wants to be discharged OBJECTIVE: Vital Signs-as noted below Exam: General-alert and oriented. Not in distress ENT-normal hearing Neck-no neck masses Lungs-cta b/l no wheezing or crackles Heart-s1 and s2 heard regular rate and rhythm no murmurs Abdomen-soft bowel sounds present non tender no distension Extremities-no edema no erythema Neuro-alert and awake moves extremities Lab data as noted below. ASSESSMENT & PLAN: HHS hx diet controlled DM II. HA1c was 7.6 on 05/02/17. recent completion of course of prednisone received iv fluids and iv insulin CT of the Abdomen-negative for any Diverticulitis UA-negative Pharmacy glycemic consult hba1c 13.4. needs insulin on discharge diabetic education currently received one dose of Lantus and on iss will cut back on fluids appreciate pharmacy inputs discharged on lantus 25units daily after discussing with pharmacy close f/u with pcp PSEUDOHYPONATREMIA Corrected Na is 135 for Glucose of 679 resolved DONYA on CKD IV Cr: 3.12 (baseline ~2.2). Pt dehydrated. lisinopril on hold received fluids cr 2. today at baseline f/u labs with pcp ISCHEMIC CARDIOMYOPATHY, CHRONIC SYSTOLIC HF Pt with chronic low EF. Echo 09/07: EF: 25-30%, moderate aortic regurgitation, global LF hypokinesis. holding Lasix for now on fluids restarted Lasix at discharge HX PAROXYSMAL VT with ICD IMPLANTATION Hx ventricular and atrial arrhythmia. On amiodarone. dual paced on EKG. will monitor CAD S/P CABG Hx CABG 1996. stable on metoprolol, Imdur, atorvastatin, gemfibrozil BACK PAIN, LLE RADICULOPATHY pt with hx, followed by Dr Shah. Suspect flare from bowling last week to continue gabapentin and continue to monitor HYPOTHYROIDISM TSH: 0.81 on 05/02/17 on levothyroxine BPH on Avodart discharged home Vital Signs: Date Time Temp Pulse Resp B/P (MAP) Pulse Ox O2 Delivery O2 Flow Rate FiO2 06/09/17 14:00 36.8 60 20 95 Room Air 06/09/17 12:00 Room Air 06/09/17 11:54 36.8 60 20 126/69 (88) 95 06/09/17 08:00 Room Air 06/09/17 07:53 37.0 60 18 141/73 (95) 91 06/09/17 04:22 36.9 63 15 132/70 (90) 94 Room Air 06/09/17 04:00 Room Air 06/09/17 00:32 37.0 60 20 135/72 (93) 93 Room Air 06/08/17 23:59 Room Air 06/08/17 20:27 36.8 60 20 149/78 (101) 96 Room Air 06/08/17 20:00 Room Air Lab Results: Results Past 24 Hours Test 06/08/17 20:55 06/09/17 02:52 06/09/17 06:20 06/09/17 06:51 Range/Units Bedside Glucose 163 146 121 70-99 mg/dl Venous Blood pH 7.33 7.36-7.41 Sodium Level 140 136-145 mmol/L Potassium Level 4.5 3.5-5.1 mmol/L Chloride Level 111 98-107 mmol/L Carbon Dioxide Level 22 21-32 mmol/L Anion Gap 8.0 3-11 mmol/L Blood Urea Nitrogen 31 7-18 mg/dl Creatinine 2.03 0.60-1.40 mg/dl Est Creatinine Clear Calc Drug Dose 33.8 ml/min Estimated GFR () 34.8 Estimated GFR (Non- 30.1 BUN/Creatinine Ratio 15.1 10-20 Random Glucose 121 70-99 mg/dl Calcium Level 8.8 8.5-10.1 mg/dl Phosphorus Level 2.6 2.5-4.9 mg/dl Magnesium Level 2.1 1.8-2.4 mg/dl Test 06/09/17 11:29 Range/Units Bedside Glucose 257 70-99 mg/dl
--- NOTE | 2017-06-09 19:16 | Discharge Summary ---
Discharge Summary Date of Service Jun 09, 2017. Discharge Summary Admission Date: Jun 06, 2017 at 14:24 Discharge Date: Jun 09, 2017 Discharge Disposition: Home Principal Diagnosis: HHS PSEUDOHYPONATREMIA DONYA Secondary Diagnoses/Problems: (1) Aphasia Status: Resolved (2) BPH (benign prostatic hyperplasia) Status: Chronic (3) CAD (coronary artery disease) Permanent Comment: s/p CABG 1996 [facility] Status: Chronic (4) DM type 2 (diabetes mellitus, type 2) Permanent Comment: diet controlled Status: Chronic (5) Gout Status: Chronic (6) History of atrial fibrillation Status: Chronic (7) HTN (hypertension) Status: Chronic (8) Hyperlipidemia Status: Chronic (9) Hypothyroidism Status: Chronic (10) Ischemic cardiomyopathy Status: Chronic (11) Kidney disease Permanent Comment: CKD IV Status: Chronic (12) Pacemaker Status: Chronic (13) Systolic heart failure Status: Chronic (14) TIA (transient ischemic attack) Status: Resolved Procedures: PELVIC XRAY: Degenerative change of the hips bilaterally. Mild degenerative change sacroiliac joints. No acute process. CT ABD/PELVIS: 1. No acute intra-abdominal or intrapelvic abnormality identified. 2. Mild colonic diverticulosis without CT evidence of acute diverticulitis. 3. Probable gallbladder sludge. 4. Bilateral nonobstructing nephrolithiasis. CXR: 1. No acute cardiopulmonary findings. 2. Moderate cardiomegaly. ECHO: The left ventricle is mildly dilated. * There is severe concentric left ventricular hypertrophy. * Left ventricular systolic function is severely reduced. * Apical wall motion abnormality may reflect pacemaker activation. * There is inferior wall akinesis. * There is posterior wall akinesis. * There is severe global hypokinesis of the left ventricle. * Ejection Fraction = 20-25%. * Aortic valve sclerosis mild, without significant aortic valvular stenosis. * Mild aortic regurgitation. * There is moderate mitral regurgitation. Consultations: NEPHROLOGY Medication Reconciliation New Medications: Insulin Glargine (Lantus Solostar) 100 Unit/Ml Inj 25 UNITS SC QAM, #1 PEN 3 Refills Continued Medications: Allopurinol (Allopurinol) 300 Mg Tab 300 MG PO DAILY Amiodarone Hcl (Cordarone) 200 Mg Tab 100 MG PO DAILY, TAB Aspirin (Aspirin) 325 Mg Ectab 325 MG PO DAILY for 30 Days Atorvastatin (Lipitor) 80 Mg Tab 80 MG PO HS, TAB Cholecalciferol (Vitamin D 1000 Unit) 1,000 Unit Cap 2000 INTER.UNIT PO DAILY, CAP Cyanocobalamin (Vitamin B-12) 500 Mcg Tab 500 MCG SL DAILY, TAB Dutasteride (Avodart) 0.5 Mg Cap 0.5 MG PO DAILY, CAP Furosemide (Lasix) 20 Mg Tab 20 MG PO DAILY, TAB Gabapentin (Neurontin) 400 Mg Cap 1 CAP PO HS for 30 Days, CAP 1 Refill Gemfibrozil (Lopid) 600 Mg Tab 600 MG PO BID, 0 Refills Isosorbide Mononitrate Ext Rel (Imdur Ext Rel) 30 Mg Ertab 1 TAB PO DAILY for 30 Days, #30 TAB 5 Refills Levothyroxine Sodium (Levothyroxine Sodium) 125 Mcg Tab 125 MCG PO DAILY, TAB 3 Refills Lisinopril (Zestril) 10 Mg Tab 5 MG PO QAM for 30 Days, TAB Metoprolol Succ (Toprol Xl) (Toprol-Xl ) 100 Mg Tabcr 100 MG PO QAM, 0 Refills Nitroglycerin (Nitrostat) 0.4 Mg Tab 0.4 MG UT PRN, 0 Refills Admission Information HPI (per Admitting provider): Pt is 82 y/o M with PMH HTN, CAD s/p CABG, ischemic heart disease, systolic heart failure, paroxysmal VT with ICD implanted, CKD IV, hyperlipidemia, hypothyroidism, hx TIA, BPH, DM II diet controlled presented to ER with c/o generalized weakness and weakness to arms past couple of days with some numbness sensation to distal tuft of R 2-4 fingers. Also c/o polyuria, polydipsia, dry mouth past 3 days. C/O blurry vision past 3 weeks. C/O frontal RICHARDS this morning. Past couple of days some aching across his lower abdomen, which has resolved since arrival to ER. Hx neck and low back pain with L leg radiculopathy in past and followed by Dr Shah. In past had injection SI joint , none recently. On gabapentin HS. States last week went bowling and after started with aching across lower back with left leg weakness and bilateral hip pain. he states this feels like prior flares in past. Hx L foot pain with negative foot xray and was on prednisone 20mg x 5 days on 05/02/17 and had resolution of foot pain. Pt diet controlled DM II, doesn't check home BS. HA1c on 05/02/17 was 7.6. Usually takes lasix daily, however hasn't taken past couple of days with increased urination. Last BM 2 days ago. Hx diverticulosis, colonoscopy 2013. Denies fever/chills, diaphoresis, N/V/D, melena, hematochezia , dizziness, syncope, vision loss, loss ROM of neck, loss ROM of extremities, CP , SOB, orthopnea, palpitations, cough, sore throat, otalgia, rhinorrhea, extremity edema, rashes, hematuria, dysuria, saddle paresthesias, lower extremity paresthesias, loss control of bowel/bladder. Physical Exam (per Admitting): General Appearance: WD/WN, no apparent distress Head: normocephalic, atraumatic Eyes: normal inspection, PERRL, EOMI, sclerae normal ENT: hearing grossly normal, pharynx normal, + pertinent finding (dry mucous membranes) Neck: supple, no JVD, trachea midline, + pertinent finding (non-tender to palpation, ROM intact) Respiratory/Chest: lungs clear, normal breath sounds, no respiratory distress, no accessory muscle use Cardiovascular: regular rate, rhythm, no edema, normal peripheral pulses, + systolic murmur Abdomen/GI: normal bowel sounds, non tender (non-tender on my examination), soft Back: normal inspection, no CVA tenderness, + pertinent finding (non-tender to palpation. negative leg raising) Extremities/Musculoskelatal: normal inspection, normal capillary refill, no pedal edema, non-tender, + pertinent finding (bilateral upper and lower extremities with equal strength) Neurologic/Psych: alert, normal mood/affect, oriented x 3 Skin: normal color, warm/dry Hospital Course HHS hx diet controlled DM II. HA1c was 7.6 on 05/02/17. recent completion of course of prednisone received iv fluids and iv insulin CT of the Abdomen-negative for any Diverticulitis UA-negative Pharmacy glycemic consult hba1c 13.4. needs insulin on discharge diabetic education currently received one dose of Lantus and on iss will cut back on fluids appreciate pharmacy inputs discharged on lantus 25units daily after discussing with pharmacy close f/u with pcp PSEUDOHYPONATREMIA Corrected Na is 135 for Glucose of 679 resolved DONYA on CKD IV Cr: 3.12 (baseline ~2.2). Pt dehydrated. lisinopril on hold received fluids cr 2. today at baseline f/u labs with pcp ISCHEMIC CARDIOMYOPATHY, CHRONIC SYSTOLIC HF Pt with chronic low EF. Echo 09/07: EF: 25-30%, moderate aortic regurgitation, global LF hypokinesis. holding Lasix for now on fluids restarted Lasix at discharge HX PAROXYSMAL VT with ICD IMPLANTATION Hx ventricular and atrial arrhythmia. On amiodarone. dual paced on EKG. will monitor CAD S/P CABG Hx CABG 1996. stable on metoprolol, Imdur, atorvastatin, gemfibrozil BACK PAIN, LLE RADICULOPATHY pt with hx, followed by Dr Shah. Suspect flare from bowling last week to continue gabapentin and continue to monitor HYPOTHYROIDISM TSH: 0.81 on 05/02/17 on levothyroxine BPH on Avodart discharged home Total time spent on discharge = 35MINUTES This includes examination of the patient, discharge planning, medication reconciliation, and communication with other providers. Discharge Instructions Discharge Instructions Date of Service Jun 09, 2017. Admission Reason for Admission: Diabetic Hyperosmolor Non-Ketotic State Discharge Discharge Diagnosis / Problem: Diabetic hyperosmolar non ketotic state Discharge Goals Goal(s): Decrease discomfort, Improve function Activity Recommendations Activity Limitations: resume your previous activity . Instructions / Follow-Up Instructions / Follow-Up FOLLOW UP WITH FAMILY DOCTOR ON May AT 10:45AM LAB: BMP IN ONE WEEK AND FOLLOW RESULTS WITH FAMILY DOCTOR. STARTING ON LANTUS 25UNITS DAILY ONCE SUBCUTANEOUSLY IN AM BEFORE BREAKFAST. TO CHECK BLOOD SUGARS THREE TIMES DAILY BEFORE BREAKFAST, LUNCH AND DINNER AND WRITE THE READINGS IN A BOOK WITH TIME OF READINGS AND SHOW THEM TO FAMILY DOCTOR FOR FURTHER ADJUSTMENTS IN INSULIN REGIMEN. TO CALL FAMILY DOCTOR IF BLOOD SUGARS >350 OR LESS THAN 80. TO TAKE SUGAR OR ORANGE JUICE IF BLOOD SUGARS LESS THAN 80 AND CALL FAMILY DOCTOR. Current Hospital Diet Patient's current hospital diet: AHA Diet (Heart Healthy), Diabetes Type 2 Diet Discharge Diet Recommended Diet: AHA Diet (Heart Healthy), Diabetes Type 2 Diet Pending Studies Studies pending at discharge: no Laboratory Results Hemoglobin A1c Test 06/06/17 12:20 Range/Units Estimated Average Glucose 338 mg/dl Hemoglobin A1c 13.4 H 4.5-5.6 % Medical Emergencies . Who to Call and When: Medical Emergencies: If at any time you feel your situation is an emergency, please call 911 immediately. . Non-Emergent Contact Non-Emergency issues call your: Primary Care Provider . . "Provider Documentation" section prepared by Heladio Brizuela. . VTE Core Measure Inpt VTE Proph given/why not?: Unfractionated heparin SQ
[2017-06-12 13:32] VITALS: Ht 177.8 cm; Wt 90.2 kg
== END 2017-06-09 14:20 | disposition home or self-care (01) | DRG 638 ==
LOC: C.EDB 11:58 → C.2E 14:24 → ENRESERV 14:42
PROVIDERS: ADMIT Hospitalist; ATTEND Internal Medicine
DX: E11.00 Type 2 diabetes mellitus with hyperosmolarity without nonketotic hyperglycemic-hyperosmolar coma (NKHHC) (principal); N17.9 Acute kidney failure, unspecified; I47.2 Ventricular tachycardia; I13.0 Hypertensive heart and chronic kidney disease with heart failure and stage 1 through stage 4 chronic kidney disease, or unspecified chronic kidney disease; I50.22 Chronic systolic (congestive) heart failure; N18.4 Chronic kidney disease, stage 4 (severe); M54.10 Radiculopathy, site unspecified; E11.22 Type 2 diabetes mellitus with diabetic chronic kidney disease; I25.10 Atherosclerotic heart disease of native coronary artery without angina pectoris; E03.9 Hypothyroidism, unspecified; E78.5 Hyperlipidemia, unspecified; M10.9 Gout, unspecified; N40.0 Benign prostatic hyperplasia without lower urinary tract symptoms; I25.5 Ischemic cardiomyopathy; Z79.02 Long term (current) use of antithrombotics/antiplatelets; Z79.82 Long term (current) use of aspirin; Z79.899 Other long term (current) drug therapy; Z95.0 Presence of cardiac pacemaker; Z95.1 Presence of aortocoronary bypass graft; Z86.73 Personal history of transient ischemic attack (TIA), and cerebral infarction without residual deficits; Z88.8 Allergy status to other drugs, medicaments and biological substances; Z83.3 Family history of diabetes mellitus

== ENCOUNTER 2017-12-07 18:02 | Emergency (ER) | payer OTHER, BC ==
[~2017-12-07] VITALS: Ht 180.3 cm; Wt 101.2 kg
[~2017-12-07 18:02] MED LIST changes: -CHOL100027 PO; -DICL1GEL12 TOP; -GABA-113 PO; +GABA400C PO; -GEMF600T3 PO; +GEMF600T5 PO; +INSDGIPEN SC
[2017-12-07 18:05] VITALS: TEMP 36.8; Ht 180.3 cm; Wt 101.2 kg
[2017-12-07 18:37] LABS: BASO % 0.3 %; BASO ABS # 0.03 K/uL (0-0.2); EOS % 1.3 %; EOS ABS # 0.14 K/uL (0-0.5); HEMATOCRIT 40.1 % (42-52); HEMOGLOBIN 13.4 g/dL (14.0-18.0); IG# 0.02 K/uL (0.00-0.02); LYMPH % 21.6 %; LYMPH ABS # 2.28 K/uL (1.2-3.4); MEAN CELL VOLUME 100.8 fL (80-100); MEAN CORPUSCULAR HEMOGLOBIN 33.7 pg (25-34); MEAN CORPUSCULAR HGB CONC 33.4 g/dl (32-36); MEAN PLATELET VOLUME 11.3 fL (7.4-10.4); MONO % 12.4 %; MONO ABS # 1.31 K/uL (0.11-0.59); NEUT % 64.2 %; NEUT ABS # 6.78 K/uL (1.4-6.5); PLATELET COUNT 184 K/uL (130-400); RED CELL DISTRIBUTION WIDTH CV 14.1 % (11.5-14.5); RED CELL DISTRIBUTION WIDTH SD 51.8 fL (36.4-46.3); WHITE BLOOD COUNT 10.56 K/uL (4.8-10.8)
[2017-12-07 18:53] LABS: CALCIUM 9.2 mg/dl (8.5-10.1); CREATININE 2.89 mg/dl (0.60-1.40); POTASSIUM 4.3 mmol/L (3.5-5.1)
[2017-12-07] MEDS ORDERED: PHEN-876 PO (20:06)
--- NOTE | 2017-12-07 20:06 | EMERGENCY ROOM VISIT NOTE ---
History Report prepared by Markos: Polly Alvarado Under the Supervision of: Dr. Ken Quiles M.D. First contact with patient: 18:18 Chief Complaint: HEMATURIA Stated Complaint: HEMATURIA, BURNING AND PAIN Nursing Triage Summary: patient reports blood in his urine,patient states "it's all blood" History of Present Illness The patient is an 82 year old male with a past medical history of a CABG, Diabetes, CAD, BPH, aphasia, HTN, hyperlipidemia, hyperthyroidism, TIA, atrial fibrillation, V-Tach, pacemaker/defibrillator placement, and Stage 4 Kidney Disease who presents to the ED with a cc of worsening hematuria beginning this morning. The patient states that he noticed it this morning and it happens each time he voids. He states that it has been getting increasingly redder. He reports that each time he voids, it miranda. He notes that he had a Cystoscopy 3 days ago that will require further surgery in January. The patient notes that he takes Aspirin and Coumadin. He states that he is on Coumadin for atrial fibrillation that was picked up by his pacemaker/defibrillator. He notes that it was originally placed for V-Tach. He notes that his last Coumadin level was checked 3 days ago. Positive intermittent back pain. Negative a history of kidney stones, anything making it better, anything making it worse, recent trauma, nausea, vomiting, fever, chills, and abdominal pain. Source of History: patient Onset: this morning Position: abdomen Quality: burning, other (hematuria) Timing: worsening Associated Symptoms: + back pain, No fevers, No chills, No nausea, No vomiting, No abdominal pain Note: The patient denies anything making it better/worse and recent trauma. Review of Systems See HPI for pertinent positives and negatives. A total of ten systems were reviewed and were otherwise negative. Past Medical & Surgical Medical Problems: (1) A-fib (2) Aphasia (3) BPH (benign prostatic hyperplasia) (4) CAD (coronary artery disease) (5) DM type 2 (diabetes mellitus, type 2) (6) Gout (7) History of atrial fibrillation (8) HTN (hypertension) (9) Hx of cardiac pacemaker (10) Hyperlipidemia (11) Hypothyroidism (12) Ischemic cardiomyopathy (13) Kidney disease (14) Pacemaker (15) Stage 4 chronic kidney disease (16) Systolic heart failure (17) TIA (transient ischemic attack) (18) V tach Surgical Problems: (1) History of implantable cardiac defibrillator (ICD) (2) Hx of CABG (3) Hx of tonsillectomy (4) Hx of transurethral resection of prostate Family History FH: heart disease Hypertension Kidney disease Kidney stones Social History Smoking Status: Never Smoker Alcohol Use: none Drug Use: none Marital Status: Housing Status: lives with significant other Occupation Status: retired Current/Historical Medications Scheduled Allopurinol (Allopurinol), 300 MG PO DAILY Amiodarone Hcl (Cordarone), 200 MG PO DAILY Aspirin (Aspirin Ec), 81 MG PO DAILY Atorvastatin (Lipitor), 80 MG PO HS Cholecalciferol (Vitamin D 1000 Unit), 2,000 INTER.UNIT PO DAILY Cyanocobalamin (Vitamin B-12), 500 MCG SL DAILY Dutasteride (Avodart), 0.5 MG PO DAILY Furosemide (Lasix), 20 MG PO DAILY Gabapentin (Neurontin), 1 CAP PO HS Gemfibrozil (Lopid), 600 MG PO BID Insulin Glargine (Lantus Solostar), 10 UNITS SC QAM Isosorbide Mononitrate Ext Rel (Imdur Ext Rel), 1 TAB PO DAILY Levothyroxine Sodium (Levothyroxine Sodium), 125 MCG PO DAILY Lisinopril (Lisinopril), 2.5 MG PO DAILY Metoprolol Succ (Toprol Xl) (Toprol-Xl ), 100 MG PO QAM Nitroglycerin (Nitrostat), 0.4 MG UT PRN Warfarin Sodium (Warfarin Sodium), 2-4 MG PO UD Scheduled PRN Phenazopyridine HCl (Pyridium), 200 MG PO TID PRN for Frequency/Burning w/ Urination Allergies Coded Allergies: Amlodipine (Verified Adverse Reaction, Mild, INSOMNIA, 06/06/17) Physical Exam Vital Signs Date Time Temp Pulse Resp B/P (MAP) Pulse Ox O2 Delivery O2 Flow Rate FiO2 12/07/17 20:13 70 18 129/77 96 12/07/17 18:29 61 12/07/17 18:05 36.8 66 18 121/73 95 Room Air Physical Exam GENERAL: Awake, alert, well-appearing, NAD, wearing glasses. HENT: Normocephalic, atraumatic. EYES: Normal conjunctiva. Sclera non-icteric. PERRL. No anisocoria. NECK: Supple. No nuchal rigidity. FROM. RESPIRATORY: CTAB, no rhonchi, wheezing, crackles CARDIAC: RRR, no MRG ABDOMEN: Soft, NTND, BS+ MSK: No chest wall TTP, device in left chest, no LE edema NEURO: GCS 15, CN 2-12 intact, moves all 4s on command SKIN: No rash or jaundice noted. Vein graft scar over the LLE. Medical Decision & Procedures Laboratory Results 12/07/17 18:20 Red Blood Count 3.98, Mean Corpuscular Volume 100.8, Mean Corpuscular Hemoglobin 33.7, Mean Corpuscular Hemoglobin Concent 33.4, Mean Platelet Volume 11.3, Neutrophils (%) (Auto) 64.2, Lymphocytes (%) (Auto) 21.6, Monocytes (%) ( Auto) 12.4, Eosinophils (%) (Auto) 1.3, Basophils (%) (Auto) 0.3, Neutrophils # (Auto) 6.78, Lymphocytes # (Auto) 2.28, Monocytes # (Auto) 1.31, Eosinophils # ( Auto) 0.14, Basophils # (Auto) 0.03 12/07/17 18:20 Test 12/07/17 18:15 12/07/17 18:20 12/07/17 19:18 Urine Color RED Urine Appearance CLOUDY (CLEAR) Urine pH (4.5-7.5) Urine Specific [place] 1.011 (1.000-1.030) Urine Protein (NEG) Urine Glucose (UA) (NEG) Urine Ketones (NEG) Urine Occult Blood (NEG) Urine Nitrite (NEG) Urine Bilirubin (NEG) Urine Urobilinogen (NEG) Urine Leukocyte Esterase (NEG) Urine RBC >30 /hpf (0-4) Urine WBC 10-30 /hpf (0-5) Urine Epithelial Cells 0-5 /lpf (0-5) Urine Bacteria 1+ (NEG) White Blood Count 10.56 K/uL (4.8-10.8) Red Blood Count 3.98 M/uL (4.7-6.1) Hemoglobin 13.4 g/dL (14.0-18.0) Hematocrit 40.1 % (42-52) Mean Corpuscular Volume 100.8 fL (80-100) Mean Corpuscular Hemoglobin 33.7 pg (25-34) Mean Corpuscular Hemoglobin Concent 33.4 g/dl (32-36) Platelet Count 184 K/uL (130-400) Mean Platelet Volume 11.3 fL (7.4-10.4) Neutrophils (%) (Auto) 64.2 % Lymphocytes (%) (Auto) 21.6 % Monocytes (%) (Auto) 12.4 % Eosinophils (%) (Auto) 1.3 % Basophils (%) (Auto) 0.3 % Neutrophils # (Auto) 6.78 K/uL (1.4-6.5) Lymphocytes # (Auto) 2.28 K/uL (1.2-3.4) Monocytes # (Auto) 1.31 K/uL (0.11-0.59) Eosinophils # (Auto) 0.14 K/uL (0-0.5) Basophils # (Auto) 0.03 K/uL (0-0.2) RDW Standard Deviation 51.8 fL (36.4-46.3) RDW Coefficient of Variation 14.1 % (11.5-14.5) Immature Granulocyte % (Auto) 0.2 % Immature Granulocyte # (Auto) 0.02 K/uL (0.00-0.02) Anion Gap 8.0 mmol/L (3-11) Est Creatinine Clear Calc Drug Dose 24.7 ml/min Estimated GFR () 22.7 Estimated GFR (Non- 19.6 BUN/Creatinine Ratio 12.7 (10-20) Calcium Level 9.2 mg/dl (8.5-10.1) Prothrombin Time 31.1 SECONDS (9.0-12.0) Prothromb Time International Ratio 3.0 (0.9-1.1) Activated Partial Thromboplast Time 46.0 SECONDS (21.0-31.0) Partial Thromboplastin Ratio 1.8 Laboratory results reviewed by id ED Course 1823: The patient was evaluated in room B5. A complete history and physical exam was performed. 1956: I reevaluated the patient. Discussed results and discharge instructions: He verbalized understanding and agreement. The patient is ready for discharge. Medical Decision The patient is an 82 year old male with a past medical history of a CABG, Diabetes, CAD, BPH, aphasia, HTN, hyperlipidemia, hyperthyroidism, TIA, atrial fibrillation, V-Tach, pacemaker/defibrillator placement, and Stage 4 Kidney Disease who presents to the ED with a cc of worsening hematuria beginning this morning. Nursing notes reviewed. Ancillary studies and prior records reviewed. Differential diagnosis: Etiologies such as renal colic, appendicitis, diverticulitis, mesenteric ischemia, aortic pathology, infections, inflammatory bowel disease, PUD, biliary pathology, UTI, as well as others were entertained. Patient was seen and evaluated the bedside. The patient does relate that he has noted some hematuria just over the last day. He states that his urine is becoming more red. The patient is on aspirin and Coumadin. The patient does have an AICD defibrillator her prior history of V. tach. The patient has been in and out of A. fib so he was started on Coumadin 2 weeks prior. Of note the patient did have a recent cystoscopy with Dr. Shultz. Patient does complain of some mild burning urination but denies any fevers or chills. The patient has no abdominal pain. Patient did have blood work completed along with coags and a declined pain medication at this time. Patient has no back pain less likely kidney stone. Patient has normal white blood cell count. Hemoglobin 13 normal platelet count. Patient's INR is therapeutic at 3. The patient's urinalysis does show lots of epithelial cells with 1+ bacteria. I did discuss with the patient state that we will await the urine culture and not start antibiotics at this time. The patient was informed of these findings. 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 I did discuss that he should follow-up with his urologist if he has persistent hematuria. Patient was given strict follow-up, discharge, and return precautions. All questions were answered. Patient was deemed suitable for outpatient follow-up at this time. Patient agreed with the plan of care and was safely discharged home. Medication Reconcilliation Current Medication List: was personally reviewed by me Blood Pressure Screening Patient's blood pressure: Normal blood pressure Blood pressure disposition: Did not require urgent referral Impression Primary Impression: Hematuria Additional Impression: Dysuria Scribe Attestation The scribe's documentation has been prepared under my direction and personally reviewed by me in its entirety. I confirm that the note above accurately reflects all work, treatment, procedures, and medical decision making performed by me. Departure Information Dispostion Home / Self-Care Prescriptions Phenazopyridine HCl (Pyridium) 200 Mg Tab 200 MG PO TID Y for Frequency/Burning w/Urination, #6 TAB Prov: Ken Quiles M.D. 12/07/17 Referrals Rogelio Watt D.O. (PCP) Forms HOME CARE DOCUMENTATION FORM, IMPORTANT VISIT INFORMATION, WORK / SCHOOL INSTRUCTIONS Patient Instructions Hematuria, Hematuria Poss Causes, My [facility] [place] Additional Instructions Please return to the emergency department if you have worsening or recurrent symptoms not amenable to at-home treatment. Please call for a follow-up appointment with her primary care physician. Please take your medications as prescribed. If you have other concerns and/or complaints please feel free to also call your primary care physician's office or return the ED for further evaluation, management, and treatment. You may take tylenol 650 mg every 6 hours as needed for pain/fever unless told by your physician to not take it or have liver problems. Take your medications as prescribed. If culture results are not available at discharge, if they are positive for concern of infection, you will be informed of the results as soon as they are available. Your INR was 3.0. Your creatinine was 2.8. Please keep your follow-up with your shuttle final inspector. Follow-up with your urologist as needed. You have been examined and treated today on an emergency basis only. This is not a substitute for, or an effort to provide, complete comprehensive medical care. It is impossible to recognize and treat all injuries or illnesses in a single emergency department visit. It is therefore important that you follow up closely with [facility], your PCP, and/or your specialist(s). Call as soon as possible for an appointment. Thank you for your time and consideration. I look forward to speaking with you again soon. Please don't hesitate to call us if you have any questions. Problem Qualifiers Primary Impression: Hematuria Hematuria type: unspecified type Qualified Codes: R31.9 - Hematuria, unspecified
[2017-12-07 20:13] VITALS: BP 129/77; PULSE 70; O2SAT 96
[2017-12-07] MEDS ORDERED: ASPI81TA28 PO (20:17)
[2017-12-07] MEDS ORDERED: LISI-730 PO (20:17)
[2017-12-07] MEDS ORDERED: INSDGIPEN SC (20:17)
[2017-12-07] MEDS ORDERED: WARF4TAB43 PO (20:18)
[2017-12-07] MEDS ORDERED: CHOL100027 PO (20:33)
[2017-12-10] MEDS ORDERED: AMOX1TAB42 PO (13:31)
== END 2017-12-07 20:14 | disposition home or self-care (01) ==
LOC: C.EDB 18:03
DX: R31.9 Hematuria, unspecified (principal); R30.0 Dysuria; E11.22 Type 2 diabetes mellitus with diabetic chronic kidney disease; I47.2 Ventricular tachycardia; I25.10 Atherosclerotic heart disease of native coronary artery without angina pectoris; N40.0 Benign prostatic hyperplasia without lower urinary tract symptoms; I12.9 Hypertensive chronic kidney disease with stage 1 through stage 4 chronic kidney disease, or unspecified chronic kidney disease; E78.5 Hyperlipidemia, unspecified; E05.90 Thyrotoxicosis, unspecified without thyrotoxic crisis or storm; I48.91 Unspecified atrial fibrillation; E03.9 Hypothyroidism, unspecified; N18.4 Chronic kidney disease, stage 4 (severe); Z86.73 Personal history of transient ischemic attack (TIA), and cerebral infarction without residual deficits; Z95.1 Presence of aortocoronary bypass graft; Z95.0 Presence of cardiac pacemaker; Z79.01 Long term (current) use of anticoagulants; Z79.82 Long term (current) use of aspirin; Z79.4 Long term (current) use of insulin; Z79.899 Other long term (current) drug therapy; Z88.8 Allergy status to other drugs, medicaments and biological substances; Z84.2 Family history of other diseases of the genitourinary system

== ENCOUNTER 2017-12-08 11:00 | Inpatient (IN) | payer OTHER, BC ==
[~2017-12-08] VITALS: Ht 180.3 cm; Wt 100.7 kg
[~2017-12-08 11:00] MED LIST changes: -ASPEC325 PO; +ASPI81TA28 PO; +CHOL100027 PO; -LISI-461 PO; +LISI-730 PO; +PHEN-876 PO; +WARF4TAB43 PO
[2017-12-08 11:06] VITALS: Ht 180.3 cm; Wt 100.7 kg
[2017-12-08] MEDS ORDERED: SODIUM CHLORIDE 0.9% 1000ML 1,000 ML IV STA (11:39)
[2017-12-08 11:53] LABS: BASO % 0.2 %; BASO ABS # 0.02 K/uL (0-0.2); EOS % 0.7 %; EOS ABS # 0.07 K/uL (0-0.5); HEMATOCRIT 39.5 % (42-52); HEMOGLOBIN 13.3 g/dL (14.0-18.0); IG# 0.02 K/uL (0.00-0.02); LYMPH % 8.7 %; LYMPH ABS # 0.89 K/uL (1.2-3.4); MEAN CELL VOLUME 99.7 fL (80-100); MEAN CORPUSCULAR HEMOGLOBIN 33.6 pg (25-34); MEAN CORPUSCULAR HGB CONC 33.7 g/dl (32-36); MEAN PLATELET VOLUME 11.2 fL (7.4-10.4); MONO % 8.7 %; MONO ABS # 0.89 K/uL (0.11-0.59); NEUT % 81.5 %; NEUT ABS # 8.39 K/uL (1.4-6.5); PLATELET COUNT 164 K/uL (130-400); RED CELL DISTRIBUTION WIDTH SD 51.1 fL (36.4-46.3); WHITE BLOOD COUNT 10.28 K/uL (4.8-10.8)
[2017-12-08 12:12] LABS: INR 3.3 (0.9-1.1)
[2017-12-08 12:14] LABS: ALBUMIN 3.8 gm/dl (3.4-5.0); ALKALINE PHOSPHATASE 75 U/L (45-117); ALT/SGPT 18 U/L (12-78); AST/SGOT 21 U/L (15-37); BLOOD UREA NITROGEN 39 mg/dl (7-18); CALCIUM 9.5 mg/dl (8.5-10.1); CARBON DIOXIDE 27 mmol/L (21-32); CKMB 2.2 ng/ml (0.5-3.6); CREATININE 2.58 mg/dl (0.60-1.40); GLUCOSE 153 mg/dl (70-99); LIPASE 193 U/L (73-393); POTASSIUM 4.1 mmol/L (3.5-5.1); SODIUM 137 mmol/L (136-145); TOTAL PROTEIN 7.5 gm/dl (6.4-8.2)
[2017-12-08 12:15] LABS: PTT PATIENT 45.3 SECONDS (21.0-31.0)
--- NOTE | 2017-12-08 12:18 | EMERGENCY ROOM VISIT NOTE ---
History First contact with patient: 11:30 Chief Complaint: WEAKNESS Stated Complaint: CHILLS, CONFUSED, WEAK Nursing Triage Summary: Seen in this ED last night. Fever. Chills. "He's really weak and he's been confused at times." Has not had Motrin or Tylenol today. pt reports feels weak this morning after waking , reports burning with urination 1 day ago and abdominal pain. pt states today no urinary issues. reports nausea and slight frontal RICHARDS History of Present Illness The patient is a 82 year old male who presents to the Emergency Room with complaints of fatigue, weakness, and confusion. The patient states this morning , he was too weak to stand. He was seen here in the emergency department yesterday for hematuria and dysuria. The patient did have a cystoscopy performed approximately 4 days ago. After his workup yesterday, he was encouraged to follow-up outpatient with his urologist. The patient was started on Coumadin 2 weeks ago due to atrial fibrillation picked up on his defibrillator. He states his INRs have been "okay" for the past 2 weeks. The patient this morning began complaining of chills, weakness, and confusion, which his family describes as "telling us to turn things off which are not on". Patient did know where he was out and who was with him, and they deny any slurring of his speech. The patient did complain of some abdominal pain this morning, but denies any pain at this time. He did begin experiencing fevers this morning as well. At this time, the patient denies any chest pain, dyspnea , flank pain, neck pain, dysuria, urinary frequency, urinary hesitancy, nausea, vomiting, diarrhea, constipation. The patient's bowel movements have been normal. He states the hematuria has improved since last night. He does report a mild headache in the middle of his head, but denies any numbness, tingling, or head injury. Review of Systems A complete 10 point review of systems was reviewed with the patient with pertinent positives and negatives as per history of present illness. All else were negative. Past Medical/Surgical History Medical Problems: (1) A-fib (2) Aphasia (3) BPH (benign prostatic hyperplasia) (4) CAD (coronary artery disease) (5) DM type 2 (diabetes mellitus, type 2) (6) Gout (7) History of atrial fibrillation (8) HTN (hypertension) (9) Hx of cardiac pacemaker (10) Hyperlipidemia (11) Hypothyroidism (12) Ischemic cardiomyopathy (13) Kidney disease (14) Pacemaker (15) Stage 4 chronic kidney disease (16) Systolic heart failure (17) TIA (transient ischemic attack) (18) V tach Surgical Problems: (1) History of implantable cardiac defibrillator (ICD) (2) Hx of CABG (3) Hx of tonsillectomy (4) Hx of transurethral resection of prostate Family History FH: heart disease Hypertension Kidney disease Kidney stones Social History Smoking Status: Never Smoker Smokeless Tobacco Use: No Alcohol Use: none Drug Use: none Marital Status: Housing Status: lives with significant other Occupation Status: retired Current/Historical Medications Scheduled Allopurinol (Allopurinol), 300 MG PO DAILY Amiodarone Hcl (Cordarone), 200 MG PO DAILY Aspirin (Aspirin Ec), 81 MG PO DAILY Atorvastatin (Lipitor), 80 MG PO HS Cholecalciferol (Vitamin D 1000 Unit), 2,000 INTER.UNIT PO DAILY Cyanocobalamin (Vitamin B-12), 500 MCG SL DAILY Dutasteride (Avodart), 0.5 MG PO DAILY Furosemide (Lasix), 20 MG PO DAILY Gabapentin (Neurontin), 400 MG PO HS Gemfibrozil (Lopid), 600 MG PO BID Insulin Glargine (Lantus Solostar), 10 UNITS SC QAM Isosorbide Mononitrate Ext Rel (Imdur Ext Rel), 1 TAB PO DAILY Levothyroxine Sodium (Levothyroxine Sodium), 125 MCG PO DAILY Lisinopril (Lisinopril), 2.5 MG PO DAILY Metoprolol Succ (Toprol Xl) (Toprol-Xl ), 100 MG PO QAM Nitroglycerin (Nitrostat), 0.4 MG UT PRN Warfarin Sodium (Warfarin Sodium), 4 MG PO DAILY Physical Exam Vital Signs Date Time Temp Pulse Resp B/P (MAP) Pulse Ox O2 Delivery O2 Flow Rate FiO2 12/08/17 13:22 61 18 124/59 95 Room Air 12/08/17 11:49 62 12/08/17 11:06 38.3 67 20 138/66 95 Room Air Physical Exam VITALS: Vitals are noted on the nurse's note and reviewed by myself. The patient is febrile with a temperature of 38.3. GENERAL: This is an 82-year-old white male, in no acute distress, nondiaphoretic , well-developed well-nourished. SKIN: The skin was without rashes, erythema, edema, or bruising. There is no tenting of the skin. Capillary reflex less than 2 seconds. HEAD: Normocephalic atraumatic. EARS: External auditory canals clear, tympanic membranes pearly shields without erythema or effusion bilaterally. EYES: Pupils equal round and reactive to light and accommodation. Conjunctivae without injection, sclerae without icterus. Extraocular movements intact. NOSE: Patent, turbinates without inflammation or discharge. No sinus tenderness. MOUTH: Mucous membranes moist. Tonsils are not enlarged. Pharynx without erythema or exudate. Uvula midline. Airway patent. Tongue does not deviate. NECK: Supple without nuchal rigidity. No lymphadenopathy. No thyromegaly. Cervical spine is nontender. No JVD. HEART: Regular rate and rhythm without murmurs gallops or rubs. LUNGS: Clear to auscultation bilaterally without wheezes, rales or rhonchi. No dullness to percussion. No retractions or accessory muscle use. ABDOMEN: Positive bowel sounds x 4. Normal tympanic percussion. Soft, nontender, without masses or organomegaly. Storm sign negative. No guarding or rebound tenderness. Negative CVA tenderness bilaterally. MUSCULOSKELETAL: No muscle atrophy, erythema, or edema noted. Full range of motion without joint tenderness in all extremities. No tenderness to palpation. Normal gait. Strength 5/5 throughout. NEURO: Patient was alert and oriented to person place and time. Normal sensation to light and sharp touch. Deep tendon reflexes 2+ throughout. Cranial nerves II through XII intact. No focal neurological deficits. Medical Decision & Procedures ER Provider Diagnostic Interpretation: CHEST 2 VIEWS ROUTINE CLINICAL HISTORY: weakness, fever pain COMPARISON STUDY: 06/08/2017 FINDINGS: Moderate cardiomegaly. Prior median sternotomy. Implantable cardiac pacemaker/defibrillator. Lungs otherwise are clear. Diaphragms smooth. IMPRESSION: Mild stable cardiomegaly. No acute process. The above report was generated using voice recognition software. It may contain grammatical, syntax or spelling errors. Electronically signed by: Artemio Munoz M.D. 12/08/2017 12:58 PM Dictated Date/Time: 12/08/2017 12:57 PM HEAD WITHOUT CONTRAST (CT) CLINICAL HISTORY: 82 years-old Male presenting with acute headache. TECHNIQUE: Multidetector CT imaging of the head was performed without the use of intravenous contrast. IV contrast: None. A dose lowering technique was used consistent with the principles of ALARA (as low as reasonably achievable). COMPARISON: 12/15/2014. CT DOSE (mGy.cm): The estimated cumulative dose is 2524.70. FINDINGS: Equipment Operator topogram: Unremarkable. Ventricles and sulci normal in size. Periventricular and subcortical white matter hypoattenuation, nonspecific but likely indicative of chronic small vessel ischemic change. No mass effect or midline shift. No hemorrhage or acute territorial infarct. No extra-axial fluid collection. Paranasal sinuses and mastoid air cells clear. Calvarium intact. Intracranial atherosclerosis noted. IMPRESSION: 1. Chronic small vessel ischemic change. No acute intracranial abnormality. Electronically signed by: Magdaleno Mckeon M.D. 12/08/2017 1:18 PM Dictated Date/Time: 12/08/2017 1:16 PM Laboratory Results 12/08/17 11:37 Red Blood Count 3.96, Mean Corpuscular Volume 99.7, Mean Corpuscular Hemoglobin 33.6, Mean Corpuscular Hemoglobin Concent 33.7, Mean Platelet Volume 11.2, Neutrophils (%) (Auto) 81.5, Lymphocytes (%) (Auto) 8.7, Monocytes (%) (Auto) 8.7, Eosinophils (%) (Auto) 0.7, Basophils (%) (Auto) 0.2, Neutrophils # (Auto) 8.39, Lymphocytes # (Auto) 0.89, Monocytes # (Auto) 0.89, Eosinophils # (Auto) 0.07, Basophils # (Auto) 0.02 12/08/17 11:37 Test 12/08/17 11:35 12/08/17 11:37 12/08/17 11:39 12/08/17 11:57 Urine Color YELLOW Urine Appearance CLOUDY (CLEAR) Urine pH 5.0 (4.5-7.5) Urine Specific Spencer 1.014 (1.000-1.030) Urine Protein NEG (NEG) Urine Glucose (UA) NEG (NEG) Urine Ketones NEG (NEG) Urine Occult Blood 3+ (NEG) Urine Nitrite NEG (NEG) Urine Bilirubin NEG (NEG) Urine Urobilinogen NEG (NEG) Urine Leukocyte Esterase MODERATE (NEG) Urine WBC (Auto) >30 /hpf (0-5) Urine RBC (Auto) >30 /hpf (0-4) Urine Hyaline Casts (Auto) 1-5 /lpf (0-5) Urine Epithelial Cells (Auto) 0-5 /lpf (0-5) Urine Bacteria (Auto) 1+ (NEG) White Blood Count 10.28 K/uL (4.8-10.8) Red Blood Count 3.96 M/uL (4.7-6.1) Hemoglobin 13.3 g/dL (14.0-18.0) Hematocrit 39.5 % (42-52) Mean Corpuscular Volume 99.7 fL (80-100) Mean Corpuscular Hemoglobin 33.6 pg (25-34) Mean Corpuscular Hemoglobin Concent 33.7 g/dl (32-36) Platelet Count 164 K/uL (130-400) Mean Platelet Volume 11.2 fL (7.4-10.4) Neutrophils (%) (Auto) 81.5 % Lymphocytes (%) (Auto) 8.7 % Monocytes (%) (Auto) 8.7 % Eosinophils (%) (Auto) 0.7 % Basophils (%) (Auto) 0.2 % Neutrophils # (Auto) 8.39 K/uL (1.4-6.5) Lymphocytes # (Auto) 0.89 K/uL (1.2-3.4) Monocytes # (Auto) 0.89 K/uL (0.11-0.59) Eosinophils # (Auto) 0.07 K/uL (0-0.5) Basophils # (Auto) 0.02 K/uL (0-0.2) RDW Standard Deviation 51.1 fL (36.4-46.3) RDW Coefficient of Variation 14.0 % (11.5-14.5) Immature Granulocyte % (Auto) 0.2 % Immature Granulocyte # (Auto) 0.02 K/uL (0.00-0.02) Erythrocyte Sedimentation Rate 19 mm/hr (0-14) Prothrombin Time 34.1 SECONDS (9.0-12.0) Prothromb Time International Ratio 3.3 (0.9-1.1) Activated Partial Thromboplast Time 45.3 SECONDS (21.0-31.0) Partial Thromboplastin Ratio 1.7 Anion Gap 7.0 mmol/L (3-11) Estimated GFR () 26.1 Estimated GFR (Non- 22.5 BUN/Creatinine Ratio 15.2 (10-20) Calcium Level 9.5 mg/dl (8.5-10.1) Magnesium Level 2.0 mg/dl (1.8-2.4) Total Bilirubin 0.8 mg/dl (0.2-1) Aspartate Amino Transf (AST/SGOT) 21 U/L (15-37) Alanine Aminotransferase (ALT/SGPT) 18 U/L (12-78) Alkaline Phosphatase 75 U/L (45-117) Creatine Kinase MB 2.2 ng/ml (0.5-3.6) Troponin I 0.034 ng/ml (0-0.045) C-Reactive Protein 5.75 mg/dl (0-0.29) Total Protein 7.5 gm/dl (6.4-8.2) Albumin 3.8 gm/dl (3.4-5.0) Globulin 3.7 gm/dl (2.5-4.0) Albumin/Globulin Ratio 1.0 (0.9-2) Lipase 193 U/L (73-393) Lyme Disease IgG Antibody NEG (NEG) Lyme Disease IgM Antibody NEG (NEG) Monoscreen NEG (NEG) Creatine Kinase MB Ratio (0-3.0) Bedside Lactic Acid Venous 1.75 mmol/L (0.90-1.70) Medications Administered Medications (Trade) Dose Ordered Sig/Aleida Route Start Time Stop Time Status Last Admin Dose Admin Sodium Chloride 1,000 ml @ 999 mls/hr Q1H1M STAT IV 12/08/17 11:39 12/08/17 12:39 DC 12/08/17 11:39 999 MLS/HR Piperacillin Sod/ Tazobactam Sod (Zosyn Iv) 3.375 gm NOW STAT IV 12/08/17 12:49 12/08/17 12:52 DC 12/08/17 13:20 3.375 GM Acetaminophen (Tylenol Tab) 1,000 mg NOW STAT PO 12/08/17 12:53 12/08/17 12:54 DC 12/08/17 13:19 1,000 MG ECG Per My Interpretation Indication: weakness Rate (beats per minute): 65 Rhythm: other (ventricular paced rhythm) Findings: paced rhythm ED Course The patient was seen and evaluated as above. IV access obtained, labs drawn. The patient was given 1 L normal saline solution. EKG performed. Interpreted by myself as above. Labs reviewed by myself. I discussed the findings with the patient's family at bedside. The patient was given Zosyn for infection and possible sepsis. The patient complained of a headache so was given p.o. Tylenol. Imaging performed and reviewed by myself and radiologist as above. I discussed the findings with the patient at bedside. I did recommend admission. The patient was agreeable. I discussed the case with my attending. He did see and evaluate the patient. I spoke with Kary [facility] [place] who did see and evaluate the patient. Please see her dictation regarding ongoing management and care. Medical Decision This is an 82-year-old male patient who presents the emergency department today with various complaints. The patient was seen here in the emergency department last night for hematuria. He states over the past week he has been experiencing intermittent dysuria, hematuria, weakness, and confusion. The patient did have a cystoscopy performed 4 days ago and his family is very concerned for possible urinary tract infection related to the procedure. This morning, the patient was too weak to stand. Workup performed here in the emergency department due to the patient's various complaints, fever, concern for sepsis. No leukocytosis. The patient is slightly anemic with a hemoglobin of 13.3. This is consistent with patient's previous labs. No thrombocytopenia. INR slightly elevated at 3.3. Urinalysis has improved in color from red to yellow overnight. Urinalysis was positive for 3+ blood and 1+ bacteria. Creatinine elevated at 2.58. This is consistent with the patient's chronic kidney disease. Otherwise, electrolytes, renal function, hepatic function without significant abnormalities. Patient's lactic acid was elevated at 1.75. C reactive protein elevated 5.75. ESR elevated at 19. Troponin and CK-MB were negative. Lipase normal. Lyme disease testing and mono screen negative. Chest x-ray shows some stable cardiomegaly, but no obvious signs of pneumonia or infection. Head CT performed due to the patient's complaints of headache. This was negative for acute hemorrhage or abnormality. Abdomen/pelvis CT scan positive for signs of acute cystitis with upper tract involvement. Based on the patient's symptoms, fever, and history, I do recommend admission for possible urosepsis. I spoke with Kary Aguilar PA-C, [facility] [place] Hospitalist, who agreed to see and evaluate the patient. Please see her dictation regarding ongoing management and care. Etiologies such as metabolic, infection, hypo/hyperglycemia, electrolyte abnormalities, UTI, cardiac sources, intracerebral event, toxicologic, neurologic, as well as others were entertained. The chart was completed utilizing [employer] Speech voice recognition software. Grammatical errors, random word insertions, pronoun errors, and incomplete sentences are an occasional consequence of this system due to software limitations, ambient noise, and hardware issues. Any formal questions or concerns about the content, text, or information contained within the body of this dictation should be directly addressed to the provider for clarification. Medication Reconcilliation Current Medication List: was personally reviewed by me Blood Pressure Screening Patient's blood pressure: Normal blood pressure Impression Primary Impression: Urinary tract infection Additional Impressions: Weakness Fever Departure Information Dispostion Admitted as an inpatient Condition GOOD Referrals Rogelio Watt D.O. (PCP) Patient Instructions My [facility] Problem Qualifiers Primary Impression: Urinary tract infection Urinary tract infection type: acute cystitis Hematuria presence: with hematuria Qualified Codes: N30.01 - Acute cystitis with hematuria Additional Impressions: Fever Fever type: unspecified Qualified Codes: R50.9 - Fever, unspecified
[2017-12-08 12:28] LABS: MONOSPOT NEG (NEG)
[2017-12-08] MEDS ORDERED: PIPERACILLIN/TAZOBACTAM 3.375 GM/100ML D5W IV STA (12:49)
[2017-12-08] MEDS ORDERED: ACETAMINOPHEN 500 MG TAB PO STA (12:53)
--- NOTE | 2017-12-08 12:59 | DIAGNOSTIC IMAGING REPORT ---
CHEST 2 VIEWS ROUTINE CLINICAL HISTORY: weakness, fever pain COMPARISON STUDY: 06/08/2017 FINDINGS: Moderate cardiomegaly. Prior median sternotomy. Implantable cardiac pacemaker/defibrillator. Lungs otherwise are clear. Diaphragms smooth. IMPRESSION: Mild stable cardiomegaly. No acute process. The above report was generated using voice recognition software. It may contain grammatical, syntax or spelling errors. Electronically signed by: Artemio Munoz M.D. 12/08/2017 12:58 PM Dictated Date/Time: 12/08/2017 12:57 PM
--- NOTE | 2017-12-08 13:20 | DIAGNOSTIC IMAGING REPORT ---
HEAD WITHOUT CONTRAST (CT) CLINICAL HISTORY: 82 years-old Male presenting with acute headache. TECHNIQUE: Multidetector CT imaging of the head was performed without the use of intravenous contrast. IV contrast: None. A dose lowering technique was used consistent with the principles of ALARA (as low as reasonably achievable). COMPARISON: 12/15/2014. CT DOSE (mGy.cm): The estimated cumulative dose is 2524.70. FINDINGS: Cupola Hoist Operator topogram: Unremarkable. Ventricles and sulci normal in size. Periventricular and subcortical white matter hypoattenuation, nonspecific but likely indicative of chronic small vessel ischemic change. No mass effect or midline shift. No hemorrhage or acute territorial infarct. No extra-axial fluid collection. Paranasal sinuses and mastoid air cells clear. Calvarium intact. Intracranial atherosclerosis noted. IMPRESSION: 1. Chronic small vessel ischemic change. No acute intracranial abnormality. Electronically signed by: Magdaleno Mckeon M.D. 12/08/2017 1:18 PM Dictated Date/Time: 12/08/2017 1:16 PM
--- NOTE | 2017-12-08 13:32 | DIAGNOSTIC IMAGING REPORT ---
ABD/PELVIS WITHOUT FOR STONE CLINICAL HISTORY: 82 years-old Male presenting with abdominal pain, uti, mid abdominal pain, fever, chills, painful urination, nausea. TECHNIQUE: Multidetector CT of the abdomen and pelvis was performed without the use of intravenous contrast. IV contrast: None. A dose lowering technique was used consistent with the principles of ALARA (as low as reasonably achievable). COMPARISON: 06/06/2017. CT DOSE (mGy.cm): The estimated cumulative dose is 2524.70 mGy.cm. FINDINGS: Artificial Breeding Distributor topogram: Left subclavian implanted cardiac defibrillator with leads to the right atrium and right ventricular apex. Cardiomegaly. Lung bases: Hazy dependent opacities. Multichamber enlargement of the heart. Coronary artery calcification. Small left pleural effusion with subpleural nodularity, indeterminate without intravenous contrast. Liver: Normal morphology. Normal density. Biliary: No gross biliary ductal dilatation allowing for noncontrast technique. Normal gallbladder. Pancreas: Moderate parenchymal atrophy. Spleen: Normal noncontrast appearance. Adrenal glands: Normal noncontrast appearance. Kidneys and ureters: Punctate nonobstructing calculus in the interpolar region of the right kidney. Smaller punctate nonobstructing calculus in the lower pole of the left kidney. No hydronephrosis. Subtle urothelial thickening suggested bilaterally. Well-defined hypodensities in the kidneys likely cysts. Ureters nondilated. Bladder: Circumferential bladder wall thickening. Pelvic organs: Prostate and seminal vesicles normal. Bowel: Calcified focus adjacent to the upper rectum may represent old fat necrosis from prior appendagitis. Limited diverticulosis in the proximal and mid sigmoid colon. Normal appendix. No bowel obstruction. Peritoneal cavity: No free fluid or intraperitoneal gas. Lymph nodes: No gross lymphadenopathy allowing for noncontrast technique. Vasculature: Atherosclerosis of the normal caliber abdominal aorta. Abdominal wall: Small fat-containing umbilical hernia. Musculoskeletal: Degenerative changes of the spine. Degenerative changes of the hips and sacral iliac joints. IMPRESSION: 1. Wall thickening of the bladder with subtle urothelial thickening could suggest cystitis with upper tract involvement. 2. Nonobstructing punctate bilateral renal calculi. No hydronephrosis. 3. Small left pleural effusion with subpleural nodularity, indeterminate. Electronically signed by: Magdaleno Mckeon M.D. 12/08/2017 1:31 PM Dictated Date/Time: 12/08/2017 1:19 PM
--- NOTE | 2017-12-08 13:53 | EMERGENCY ROOM VISIT NOTE ---
ED Visit Note First contact with patient: 11:30 Patient was seen by our PA/FACILITY MAINTENANCE SUPERVISOR. I was involved in the patient's care and did evaluate the patient myself. I was involved in the care throughout the ER stay. Patient presents with some confusion. He has a fever and appears to have a urinary infection. Hospitalization is warranted.
[2017-12-08] MEDS ORDERED: ALUMINUM/MAGNESIUM/SIMETH (MAALOX MAX) 30 ML UDC PO PRN (15:00)
[2017-12-08] MEDS ORDERED: CARBOHYDRATES FOR HYPOGLYCEMIA PO PRN (15:00)
[2017-12-08] MEDS ORDERED: NITROGLYCERIN 0.4 MG SL PER TAB CHARGE SL PRN (15:00)
[2017-12-08] MEDS ORDERED: GLUCOSE 40% GEL 15 GM TUBE PO PRN (15:00)
[2017-12-08] MEDS ORDERED: GLUCAGON FOR INJ 1 MG VIAL SQ PRN (15:00)
[2017-12-08] MEDS ORDERED: POLYETHYLENE (MIRALAX) 17 GM PACK PO PRN (15:00)
[2017-12-08] MEDS ORDERED: DEXTROSE 50% 50 ML SYR IV PRN (15:00)
[2017-12-08] MEDS ORDERED: GLUCOSE 10 TABS/TUBE PO PRN (15:00)
[2017-12-08] MEDS ORDERED: ACETAMINOPHEN 325 MG TAB PO PRN (15:00)
[2017-12-08] MEDS ORDERED: PIPERACILL/TAZOBAC CONSULT ACTIVE PRN (15:04)
[2017-12-08] MEDS ORDERED: PATIENT'S HEIGHT AND/OR WEIGHT NEEDED SCH (15:15)
[2017-12-08 15:30] VITALS: O2SAT 95; BMI 31.1
[2017-12-08 16:00] VITALS: O2SAT 95
[2017-12-08] MEDS ORDERED: SODIUM CHLORIDE 0.9% 1000ML 1,000 ML IV SCH (16:00)
--- NOTE | 2017-12-08 16:03 | History and Physical ---
History & Physical Date & Time of Service: Dec 08, 2017 at 15:31 Chief Complaint: Chills, Confused, Weak Primary Care Physician: Rogelio Watt D.O. History of Present Illness Source: patient, family, clinic records, hospital records Pt is 82 y/o M with PMH HTN, CAD s/p CABG, ischemic heart disease, chronic systolic heart failure, paroxysmal atrial fibrillation, paroxysmal VT with ICD implanted, CKD IV, HLD, hypothyroidism, BPH, DM II, hx TIA presented to ER with complaint of weakness and fever. Patient had cystoscopy/TURP on 12/04/[address] Shultz. Patient states yesterday started with hematuria and dysuria. Was seen in ER yesterday, was afebrile, normal WBC and was given Pyridium. Urine culture 12/07/17 pinpoint growth. Patient states this morning feeling feverish with chills, sweats and shakes. Today having generalized weakness and feeling so weak that having hard time ambulating. Denies falls. Had some nausea this morning. Patient states yesterday was having some intermittent mild lower abdominal discomfort, no abdominal pain today. Denies flank pain or back pain. States past couple of days with intermittent headaches. Patient denies any hematuria or dysuria today. Denies urinary frequency or retention. Denies V/D/C , dizziness, syncope, vision changes, neck pain, CP, SOB, orthopnea, palpitations, cough, sore throat, choking, otalgia, rhinorrhea, paresthesias, extremity edema, rashes, weight changes. Past Medical/Surgical History Medical Problems: (1) Aphasia Status: Resolved (2) BPH (benign prostatic hyperplasia) Status: Chronic (3) CAD (coronary artery disease) Permanent Comment: s/p CABG 1996 Status: Chronic (4) Diabetic hyperosmolar non-ketotic state Status: Resolved (5) DM type 2 (diabetes mellitus, type 2) Permanent Comment: diet controlled Status: Chronic (6) Gout Status: Chronic (7) History of atrial fibrillation Status: Chronic (8) HTN (hypertension) Status: Chronic (9) Hyperlipidemia Status: Chronic (10) Hypothyroidism Status: Chronic (11) Ischemic cardiomyopathy Status: Chronic (12) Kidney disease Permanent Comment: CKD IV Status: Chronic (13) Pacemaker Status: Chronic (14) Systolic heart failure Status: Chronic (15) TIA (transient ischemic attack) Status: Resolved Surgical Problems: (1) History of implantable cardiac defibrillator (ICD) Status: Resolved (2) Hx of CABG Permanent Comment: 1996-[facility] [place] Status: Resolved (3) Hx of tonsillectomy Status: Resolved (4) Hx of transurethral resection of prostate Status: Resolved Family History FH: heart disease Hypertension Kidney disease Kidney stones Social History Smoking Status: Never Smoker Smokeless Tobacco Use: No Alcohol Use: none Drug Use: none Marital Status: Housing status: lives with significant other Occupational Status: retired Immunizations History of Tetanus Vaccine?: Yes History of Pneumococcal: Yes History of Hepatitis B Vaccine: No Allergies Coded Allergies: Amlodipine (Verified Adverse Reaction, Mild, INSOMNIA, 12/08/17) Home Medications Scheduled Allopurinol (Allopurinol), 300 MG PO DAILY Amiodarone Hcl (Cordarone), 200 MG PO DAILY Aspirin (Aspirin Ec), 81 MG PO DAILY Atorvastatin (Lipitor), 80 MG PO HS Cholecalciferol (Vitamin D 1000 Unit), 2,000 INTER.UNIT PO DAILY Cyanocobalamin (Vitamin B-12), 500 MCG SL DAILY Dutasteride (Avodart), 0.5 MG PO DAILY Furosemide (Lasix), 20 MG PO DAILY Gabapentin (Neurontin), 400 MG PO HS Gemfibrozil (Lopid), 600 MG PO BID Insulin Glargine (Lantus Solostar), 10 UNITS SC QAM Isosorbide Mononitrate Ext Rel (Imdur Ext Rel), 1 TAB PO DAILY Levothyroxine Sodium (Levothyroxine Sodium), 125 MCG PO DAILY Lisinopril (Lisinopril), 2.5 MG PO DAILY Metoprolol Succ (Toprol Xl) (Toprol-Xl ), 100 MG PO QAM Nitroglycerin (Nitrostat), 0.4 MG UT PRN Warfarin Sodium (Warfarin Sodium), 4 MG PO UD Review of Systems See HPI for pertinent positives & negatives. All other systems reviewed and were otherwise negative Physical Exam Vital Signs Date Time Temp Pulse Resp B/P (MAP) Pulse Ox O2 Delivery O2 Flow Rate FiO2 12/08/17 14:59 60 22 105/59 95 Room Air 12/08/17 13:22 61 18 124/59 95 Room Air 12/08/17 11:49 62 12/08/17 11:06 38.3 67 20 138/66 95 Room Air General Appearance: WD/WN, no apparent distress Head: normocephalic, atraumatic Eyes: normal inspection, PERRL, EOMI, sclerae normal ENT: hearing grossly normal, pharynx normal, + pertinent finding (mucous membranes moist) Neck: supple, trachea midline Respiratory/Chest: lungs clear, normal breath sounds, no respiratory distress Cardiovascular: regular rate, rhythm, + systolic murmur Abdomen/GI: normal bowel sounds, non tender, soft Back: no CVA tenderness Neurologic/Psych: no motor/sensory deficits, alert, normal mood/affect, oriented x 3 Skin: warm/dry Diagnostics Laboratory Results Results Past 24 Hours Test 12/08/17 11:35 12/08/17 11:37 12/08/17 11:39 12/08/17 11:57 Range/Units Urine Color YELLOW Urine Appearance CLOUDY CLEAR Urine pH 5.0 4.5-7.5 Urine Specific [place] 1.014 1.000-1.030 Urine Protein NEG NEG Urine Glucose (UA) NEG NEG Urine Ketones NEG NEG Urine Occult Blood 3+ NEG Urine Nitrite NEG NEG Urine Bilirubin NEG NEG Urine Urobilinogen NEG NEG Urine Leukocyte Esterase MODERATE NEG Urine WBC (Auto) >30 0-5 /hpf Urine RBC (Auto) >30 0-4 /hpf Urine Hyaline Casts (Auto) 1-5 0-5 /lpf Urine Epithelial Cells (Auto) 0-5 0-5 /lpf Urine Bacteria (Auto) 1+ NEG White Blood Count 10.28 4.8-10.8 K/uL Red Blood Count 3.96 4.7-6.1 M/uL Hemoglobin 13.3 14.0-18.0 g/dL Hematocrit 39.5 42-52 % Mean Corpuscular Volume 99.7 80-100 fL Mean Corpuscular Hemoglobin 33.6 25-34 pg Mean Corpuscular Hemoglobin Concent 33.7 32-36 g/dl Platelet Count 164 130-400 K/uL Mean Platelet Volume 11.2 7.4-10.4 fL Neutrophils (%) (Auto) 81.5 % Lymphocytes (%) (Auto) 8.7 % Monocytes (%) (Auto) 8.7 % Eosinophils (%) (Auto) 0.7 % Basophils (%) (Auto) 0.2 % Neutrophils # (Auto) 8.39 1.4-6.5 K/uL Lymphocytes # (Auto) 0.89 1.2-3.4 K/uL Monocytes # (Auto) 0.89 0.11-0.59 K/uL Eosinophils # (Auto) 0.07 0-0.5 K/uL Basophils # (Auto) 0.02 0-0.2 K/uL RDW Standard Deviation 51.1 36.4-46.3 fL RDW Coefficient of Variation 14.0 11.5-14.5 % Immature Granulocyte % (Auto) 0.2 % Immature Granulocyte # (Auto) 0.02 0.00-0.02 K/uL Erythrocyte Sedimentation Rate 19 0-14 mm/hr Prothrombin Time 34.1 9.0-12.0 SECONDS Prothromb Time International Ratio 3.3 0.9-1.1 Activated Partial Thromboplast Time 45.3 21.0-31.0 SECONDS Partial Thromboplastin Ratio 1.7 Sodium Level 137 136-145 mmol/L Potassium Level 4.1 3.5-5.1 mmol/L Chloride Level 103 98-107 mmol/L Carbon Dioxide Level 27 21-32 mmol/L Anion Gap 7.0 3-11 mmol/L Blood Urea Nitrogen 39 7-18 mg/dl Creatinine 2.58 0.60-1.40 mg/dl Estimated GFR () 26.1 Estimated GFR (Non- 22.5 BUN/Creatinine Ratio 15.2 10-20 Random Glucose 153 70-99 mg/dl Calcium Level 9.5 8.5-10.1 mg/dl Magnesium Level 2.0 1.8-2.4 mg/dl Total Bilirubin 0.8 0.2-1 mg/dl Aspartate Amino Transf (AST/SGOT) 21 15-37 U/L Alanine Aminotransferase (ALT/SGPT) 18 12-78 U/L Alkaline Phosphatase 75 45-117 U/L Creatine Kinase MB 2.2 0.5-3.6 ng/ml Troponin I 0.034 0-0.045 ng/ml C-Reactive Protein 5.75 0-0.29 mg/dl Total Protein 7.5 6.4-8.2 gm/dl Albumin 3.8 3.4-5.0 gm/dl Globulin 3.7 2.5-4.0 gm/dl Albumin/Globulin Ratio 1.0 0.9-2 Lipase 193 73-393 U/L Thyroid Stimulating Hormone (TSH) 0.342 0.300-4.500 uIu/ml Lyme Disease IgG Antibody NEG NEG Lyme Disease IgM Antibody NEG NEG Monoscreen NEG NEG Creatine Kinase MB Ratio 0-3.0 Bedside Lactic Acid Venous 1.75 0.90-1.70 mmol/L Microbiology Results 12/08/17 Blood Culture, Received Pending 12/08/17 Blood Culture, Received Pending 12/08/17 Urine Culture, Received Pending Diagnostic Radiology CXR: IMPRESSION: Mild stable cardiomegaly. No acute process. CT HEAD: IMPRESSION: 1. Chronic small vessel ischemic change. No acute intracranial abnormality. CT ABDOMEN PELVIS: IMPRESSION: 1. Wall thickening of the bladder with subtle urothelial thickening could suggest cystitis with upper tract involvement. 2. Nonobstructing punctate bilateral renal calculi. No hydronephrosis. 3. Small left pleural effusion with subpleural nodularity, indeterminate. EKG EKG: ventricular paced rhythm, rate 65 Impression Assessment and Plan Pt is 82 y/o M with PMH HTN, CAD s/p CABG, ischemic heart disease, chronic systolic heart failure, paroxysmal atrial fibrillation, paroxysmal VT with ICD implanted, CKD IV, HLD, hypothyroidism, BPH, DM II, hx TIA presented to ER with complaint of weakness and fever today with dysuria and hematuria yesterday. FEVER UTI s/p cystoscopy/TURP on 12/04/[address] Shultz. Yesterday dysuria & hematuria, none today. Urine culture from 12/07/17 pinpoint bacteria. No cough, diarrhea, rashes. Today in ER, T:38.3, P: 67, R: 20, BP: 138/66, 95% on RA. WBC: 10. POC lactic acid: 1.75. negative lyme screen. negative mono. UA: 3+blood, mod leuk, >30 WBC , >30 RBC, 1+bacteria. CXR: no acute process CT abd/pelvis: 1. Wall thickening of the bladder with subtle urothelial thickening could suggest cystitis with upper tract involvement. 2. Nonobstructing punctate bilateral renal calculi. No hydronephrosis. 3. Small left pleural effusion with subpleural nodularity, indeterminate. -Given Zosyn, Tylenol, 1L NSS in ER -pending urine culture -pending blood cultures -zosyn, deescalate when appropriate -cbc in am -consider urology consult if no improvement GENERALIZED WEAKNESS probable secondary to UTI/infection. no focal deficit. CT head: no acute process -PT/OT consult -monitor DM II Glucose: 153. A1C: 7.5 on 08/30/17 -A1c in am -continue pt's lantus, Novolog sliding scale per protocol HTN BP's 138/66 down to 105/59 -continue metoprolol, lisinopril with holding parameters -hold lasix tomorrow am and reassess CKD IV Cr: 2.58. baseline ~2.3 -monitor renal functions -avoid nephrotoxic agents when possible PAROXYSMAL ATRIAL FIBRILLATION ON COUMADIN INR: 3.3. Current ventricular paced rhythm. No CP, SOB, palpitations -INR in am -hold tonight's Coumadin and recheck in am as pt receiving antibiotics ISCHEMIC CARDIOMYOPATHY CHRONIC SYSTOLIC HEART FAILURE EF: 20-25%, diffuse severe LV dysfunction. No increased edema, SOB, CP. does not appear fluid overloaded at this time -hold tomorrow am lasix for now and reassess in am HX PAROXYSMAL VT S/P ICD IMPLANTATION On amiodarone. ventricular paced on EKG. Denies ICD firing, CP, SOB -continue amiodarone HX CAD s/p CABG Hx CABG 1996. No CP, SOB, palpitations -continue Imdur, metoprolol, atorvastatin, aspiring HYPOTHYROIDISM TSH: 0.34 -continue levothyroxine BPH recent cystoscopy and TURP on 12/04/[address] Shultz -continue avodart GOUT No recent flares. -continue allopurinol DVT Prophylaxis -On coumadin Admit tele Full code as per discussion with pt and pt's family Follows with Dr Watt for routine care Pt was seen with Dr Cervantes. See addendum Attending Addendum Pt was seen and examined. Agreed with Kary BHATT assessment and plan. 82 y/o M with PMH HTN, CAD s/p CABG, ischemic heart disease, chronic systolic heart failure, paroxysmal atrial fibrillation, paroxysmal VT with ICD implanted, CKD IV, HLD, hypothyroidism, BPH, DM II, hx TIA, s/p cystoscopy/TURP on 12/04/[address] Shultz presented to the ER with complaint of weakness and fever. Pt was in the ER yesterday for dysuria and hematuria. He said that today he does not have any dysuria and hematuria. Denies any chest pain, palpitation, dizziness and SOB. General- No acute distress Head- atraumatic Eyes- PERRL, EOMI ENT- oropharynx clear Neck- no JVD Lungs- No wheezing, no rales Heart- +murmur Abdomen- normal bowel sounds, soft Extremities- no calf tenderness Neuro- alert, oriented, PERRL, EOMI A/P Fever associated with generalized weakness Possible related to UTI CT abd/pelvis showed wall thickening of the bladder with subtle urothelial thickening could suggest cystitis with upper tract involvement. UA positive for leukocytes and bacteria Received Zosyn IV in the ER Blood cx and urine cx pending Continue IV Zosyn for now Monitor WBC PT/OT Fall precaution Please refer to Kary BHATT documentation for other problems MD Billy Resuscitation Status VTE Prophylaxis Will order VTE Prophylaxis: Yes Additional Copies To Rogelio Watt D.OChris
[2017-12-08 16:06] VITALS: BP 91/57; PULSE 62; TEMP 37.1; O2SAT 94
[2017-12-08] MEDS: INSULIN ASPART 100 UNITS/ML 3 ML PEN SC SCH ×2 (17:39→21:00)
[2017-12-08] MEDS: PIPERACILL/TAZOBAC IV 3.375 GM in DEXTROSE 5% 100ML 100 ML IV SCH (17:40)
[2017-12-08 19:18] VITALS: BP 106/64; PULSE 60; TEMP 36.8; O2SAT 96
[2017-12-08] MEDS: GEMFIBROZIL 600 MG TAB PO SCH (21:09)
[2017-12-08] MEDS: GABAPENTIN 400 MG CAP PO SCH (21:09)
[2017-12-08] MEDS: ATORVASTATIN 40 MG TAB PO SCH (21:10)
[2017-12-08] MEDS: INSULIN GLARGINE SOLOSTAR 100 UNITS/ML 3 ML PEN SC SCH (21:13)
[2017-12-08 23:19] VITALS: BP 113/63; PULSE 60; TEMP 38.2; O2SAT 93
[2017-12-08 23:59] VITALS: O2SAT 95
[2017-12-09] VITALS (8 sets, daily range): BP systolic 108–152; BP diastolic 65–78; PULSE 60–63; TEMP 36.5–37.2; O2SAT 92–97
[2017-12-09] MEDS: PIPERACILL/TAZOBAC IV 3.375 GM in DEXTROSE 5% 100ML 100 ML IV SCH ×3 (02:52→17:39)
[2017-12-09] MEDS: LEVOTHYROXINE 125 MCG TAB PO SCH (06:18)
[2017-12-09 06:22] LABS: HEMATOCRIT 36.4 % (42-52); HEMOGLOBIN 11.9 g/dL (14.0-18.0); MEAN CELL VOLUME 100.6 fL (80-100); MEAN CORPUSCULAR HEMOGLOBIN 32.9 pg (25-34); MEAN CORPUSCULAR HGB CONC 32.7 g/dl (32-36); MEAN PLATELET VOLUME 11.2 fL (7.4-10.4); PLATELET COUNT 136 K/uL (130-400); RED CELL DISTRIBUTION WIDTH CV 14.1 % (11.5-14.5); RED CELL DISTRIBUTION WIDTH SD 51.7 fL (36.4-46.3); WHITE BLOOD COUNT 8.83 K/uL (4.8-10.8)
[2017-12-09 06:32] LABS: INR 3.1 (0.9-1.1)
[2017-12-09 06:52] LABS: CALCIUM 8.5 mg/dl (8.5-10.1); CREATININE 2.51 mg/dl (0.60-1.40); POTASSIUM 3.8 mmol/L (3.5-5.1)
[2017-12-09 06:54] LABS: HEMOGLOBIN A1C 7.1 % (4.5-5.6)
[2017-12-09] MEDS: ALLOPURINOL 300 MG TAB PO SCH (08:19)
[2017-12-09] MEDS: ASPIRIN 81 MG ECTAB PO SCH (08:19)
[2017-12-09] MEDS: METOPROLOL SUCC 50MG EXT REL TAB PO SCH (08:19)
[2017-12-09] MEDS: CYANOCOBALAMIN 500 MCG TAB (VIT B-12) PO SCH (08:19)
[2017-12-09] MEDS: LISINOPRIL 2.5 MG TAB PO SCH (08:19)
[2017-12-09] MEDS: CHOLECALCIFEROL 1000 INTER.UNIT TAB PO SCH (08:19)
[2017-12-09] MEDS: AMIODARONE 200 MG TAB PO SCH (08:20)
[2017-12-09] MEDS: GEMFIBROZIL 600 MG TAB PO SCH ×2 (08:20→20:31)
[2017-12-09] MEDS: ISOSORBIDE MONONITRATE 30 MG TABCR PO SCH (08:20)
[2017-12-09] MEDS: INSULIN ASPART 100 UNITS/ML 3 ML PEN SC SCH ×4 (08:29→20:32)
[2017-12-09] MEDS: INSULIN GLARGINE SOLOSTAR 100 UNITS/ML 3 ML PEN SC SCH ×2 (08:29→20:34)
--- NOTE | 2017-12-09 15:13 | Progress Note ---
Medicine Progress Note Date & Time of Visit: Dec 09, 2017 at 14:55. Subjective Pt was seen and examined Lying in bed with no distress with and son at bedside Pt said that he feels fine He is very anxious to go home today Denies any chest pain, palpitation, dizziness and SOB Objective Last 8 Hrs Date Time Temp Pulse Resp B/P (MAP) Pulse Ox O2 Delivery O2 Flow Rate FiO2 12/09/17 11:29 36.5 63 20 119/71 (87) 93 Room Air 12/09/17 10:26 36.7 61 18 110/65 (80) 96 Room Air 12/09/17 08:00 94 Room Air 12/09/17 07:38 36.6 60 20 127/66 (86) 94 Room Air Physical Exam: General- No acute distress Head- atraumatic Eyes- PERRL, EOMI ENT- oropharynx clear Neck- no JVD Lungs- No wheezing Heart- regular rhythm Abdomen- normal bowel sounds, soft Extremities- no calf tenderness Neuro- alert, oriented, PERRL, EOMI; no facial palsy Skin- warm & dry Laboratory Results: Last 24 Hours Test 12/08/17 15:55 12/08/17 20:02 12/09/17 05:44 12/09/17 07:41 Bedside Glucose 129 mg/dl 160 mg/dl 109 mg/dl White Blood Count 8.83 K/uL Red Blood Count 3.62 M/uL Hemoglobin 11.9 g/dL Hematocrit 36.4 % Mean Corpuscular Volume 100.6 fL Mean Corpuscular Hemoglobin 32.9 pg Mean Corpuscular Hemoglobin Concent 32.7 g/dl RDW Standard Deviation 51.7 fL RDW Coefficient of Variation 14.1 % Platelet Count 136 K/uL Mean Platelet Volume 11.2 fL Prothrombin Time 31.6 SECONDS Prothromb Time International Ratio 3.1 Sodium Level 137 mmol/L Potassium Level 3.8 mmol/L Chloride Level 104 mmol/L Carbon Dioxide Level 23 mmol/L Anion Gap 10.0 mmol/L Blood Urea Nitrogen 42 mg/dl Creatinine 2.51 mg/dl Est Creatinine Clear Calc Drug Dose 28.4 ml/min Estimated GFR () 27.0 Estimated GFR (Non- 23.3 BUN/Creatinine Ratio 16.9 Random Glucose 97 mg/dl Estimated Average Glucose 157 mg/dl Hemoglobin A1c 7.1 % Calcium Level 8.5 mg/dl Magnesium Level 2.0 mg/dl Test 12/09/17 11:41 Bedside Glucose 104 mg/dl Assessment & Plan Pt is 82 y/o M with PMH HTN, CAD s/p CABG, ischemic heart disease, chronic systolic heart failure, paroxysmal atrial fibrillation, paroxysmal VT with ICD implanted, CKD IV, HLD, hypothyroidism, BPH, DM II, hx TIA presented to ER with complaint of weakness and fever today with dysuria and hematuria yesterday. UTI Present on admission with fever associated with weakness Urine cx positive for gram negative bacilli CT abd/pelvis showed wall thickening of the bladder with subtle urothelial thickening could suggest cystitis with upper tract involvement. Continue IV Zosyn for now Has been afebrile for 24 hrs and WBC wnl Follow up urine cx sensitivity Blood cx pending Continue monitor GENERALIZED WEAKNESS Mostly due to to UTI/infection. CT head showed no acute finding Continue PT/OT Fall precaution DM II Hba1c 7.1 on 12/09/17 Continue insulin Monitor BS HTN BP stable lasix on hold due to elevate creatine Continue monitor BP CKD IV Cr: 2.58 on admission, baseline ~2.3 Creatine today 2.51 Avoid nephrotoxic agents Monitor BMP PAROXYSMAL ATRIAL FIBRILLATION HX PAROXYSMAL VT S/P ICD IMPLANTATION Rate control with metoprolol and amiodarone INR: 3.1 today. Will resume coumadin Monitor PT/INR ISCHEMIC CARDIOMYOPATHY CHRONIC SYSTOLIC HEART FAILURE EF: 20-25%, diffuse severe LV dysfunction. No signs of fluid overload Will resume lasix Continue metoprolol and imdur HX CAD s/p CABG Hx CABG 1996. Denies any chest pain continue Imdur, metoprolol, atorvastatin, aspirin HYPOTHYROIDISM Stable Continue levothyroxine BPH Recent cystoscopy and TURP on 12/04/[address] Shultz No hematuria stable GOUT No recent flares. Continue allopurinol DVT Prophylaxis On coumadin INR 3.1 CODE STATUS FULL CODE Current Inpatient Medications: Current Inpatient Medications Medications (Trade) Dose Ordered Sig/Aleida Route Start Time Stop Time Status Last Admin Dose Admin Acetaminophen (Tylenol Tab) 650 mg Q4H PRN PO 12/08/17 15:00 01/07/18 14:59 12/08/17 23:50 650 MG Al Hydrox/Mg Hydrox/Simethicone (Maalox Max Susp) 15 ml Q4H PRN PO 12/08/17 15:00 01/07/18 14:59 Nitroglycerin (Nitrostat Tab) 0.4 mg UD PRN SL 12/08/17 15:00 01/07/18 14:59 Polyethylene (Miralax Powder Packet) 17 gm DAILY PRN PO 12/08/17 15:00 01/07/18 14:59 Miscellaneous Information (Consult) 1 ea UD PRN N/A 12/08/17 15:04 01/07/18 15:03 Insulin Glargine (Lantus Solostar Pen) 5 units Q12 SC 12/08/17 21:00 01/07/18 20:59 12/09/17 08:29 5 UNITS Insulin Aspart (novoLOG ASPART) SLIDING SCALE If C... ACHS SC 12/08/17 16:00 01/07/18 15:59 12/09/17 12:44 4 UNITS Glucose (Glucose 40% Gel) 15-30 GRAMS 15 GRAMS... UD PRN PO 12/08/17 15:00 01/07/18 14:59 Glucose (Glucose Chew Tab) 4-8 Tablets 4 Tabl... UD PRN PO 12/08/17 15:00 01/07/18 14:59 Dextrose (Dextrose 50% 50ML Syringe) 25-50ML 25ML FOR ... UD PRN IV 12/08/17 15:00 01/07/18 14:59 Glucagon (Glucagon Inj) 1 mg UD PRN SQ 12/08/17 15:00 01/07/18 14:59 Carbohydrates (Carbohydrates For Hypoglycemia) 15-30 GRAMS 15 grams if BSG 54-69... UD PRN PO 12/08/17 15:00 01/07/18 14:59 Piperacillin Sod/ Tazobactam Sod 3.375 gm/Dextrose 115 ml @ 28.75 mls/ hr Q8H IV 12/08/17 18:00 12/18/17 17:59 12/09/17 10:01 28.75 MLS/HR Allopurinol (Zyloprim Tab) 300 mg DAILY PO 12/09/17 09:00 01/08/18 08:59 12/09/17 08:19 300 MG Amiodarone HCl (Cordarone Tab) 200 mg DAILY PO 12/09/17 09:00 01/08/18 08:59 12/09/17 08:20 200 MG Aspirin (Ecotrin Tab) 81 mg DAILY PO 12/09/17 09:00 01/08/18 08:59 12/09/17 08:19 81 MG Atorvastatin Calcium (Lipitor Tab) 80 mg HS PO 12/08/17 21:00 01/07/18 20:59 12/08/17 21:10 80 MG Cholecalciferol (Vitamin D Tab) 2,000 inter.unit DAILY PO 12/09/17 09:00 01/08/18 08:59 12/09/17 08:19 2,000 INTER.UNIT Cyanocobalamin (Vitamin B-12 Tab) 500 mcg DAILY PO 12/09/17 09:00 01/08/18 08:59 12/09/17 08:19 500 MCG Gabapentin (Neurontin Cap) 400 mg HS PO 12/08/17 21:00 01/07/18 20:59 12/08/17 21:09 400 MG Gemfibrozil (Lopid Tab) 600 mg BID PO 12/08/17 21:00 01/07/18 20:59 12/09/17 08:20 600 MG Isosorbide Mononitrate (Imdur Ext Rel Tab) 30 mg DAILY PO 12/09/17 09:00 01/08/18 08:59 12/09/17 08:20 30 MG Levothyroxine Sodium (Synthroid Tab) 125 mcg DAILYBB PO 12/09/17 06:30 01/08/18 06:59 12/09/17 06:18 125 MCG Lisinopril (Zestril Tab) 2.5 mg DAILY PO 12/09/17 09:00 01/08/18 08:59 12/09/17 08:19 2.5 MG Metoprolol Succinate (Toprol Xl Tab) 100 mg QAM PO 12/09/17 09:00 01/08/18 08:59 12/09/17 08:19 100 MG Miscellaneous Information (Order Awaiting Action) 1 ea QS N/A 12/08/17 16:00 01/07/18 15:59
[2017-12-09] MEDS ORDERED: WARFARIN SOD 2 MG TAB PO SCH (16:00)
[2017-12-09] MEDS: GABAPENTIN 400 MG CAP PO SCH (20:31)
[2017-12-09] MEDS: ATORVASTATIN 40 MG TAB PO SCH (20:31)
[2017-12-10] MEDS: PIPERACILL/TAZOBAC IV 3.375 GM in DEXTROSE 5% 100ML 100 ML IV SCH ×2 (01:39→11:08)
[2017-12-10 04:13] VITALS: BP 141/82; TEMP 36.8; O2SAT 93
[2017-12-10] MEDS: LEVOTHYROXINE 125 MCG TAB PO SCH (05:43)
[2017-12-10 06:21] LABS: INR 2.5 (0.9-1.1)
[2017-12-10 06:49] LABS: CREATININE 2.34 mg/dl (0.60-1.40); POTASSIUM 4.2 mmol/L (3.5-5.1)
[2017-12-10 07:23] VITALS: BP 137/83; PULSE 64; TEMP 36.5; O2SAT 96
[2017-12-10 08:00] VITALS: O2SAT 96
[2017-12-10] MEDS: ALLOPURINOL 300 MG TAB PO SCH (08:22)
[2017-12-10] MEDS: AMIODARONE 200 MG TAB PO SCH (08:22)
[2017-12-10] MEDS: CHOLECALCIFEROL 1000 INTER.UNIT TAB PO SCH (08:23)
[2017-12-10] MEDS: ASPIRIN 81 MG ECTAB PO SCH (08:24)
[2017-12-10] MEDS: GEMFIBROZIL 600 MG TAB PO SCH (08:24)
[2017-12-10] MEDS: METOPROLOL SUCC 50MG EXT REL TAB PO SCH (08:24)
[2017-12-10] MEDS: LISINOPRIL 2.5 MG TAB PO SCH (08:25)
[2017-12-10] MEDS: ISOSORBIDE MONONITRATE 30 MG TABCR PO SCH (08:25)
[2017-12-10] MEDS: CYANOCOBALAMIN 500 MCG TAB (VIT B-12) PO SCH (08:25)
[2017-12-10] MEDS: INSULIN ASPART 100 UNITS/ML 3 ML PEN SC SCH ×2 (08:35→13:18)
[2017-12-10] MEDS: INSULIN GLARGINE SOLOSTAR 100 UNITS/ML 3 ML PEN SC SCH (08:36)
[2017-12-10 11:29] VITALS: BP 122/71; PULSE 59; TEMP 36.6; O2SAT 95
--- NOTE | 2017-12-10 13:29 | Progress Note ---
Medicine Progress Note Date & Time of Visit: Dec 10, 2017 at 13:18. Subjective Pt was seen and examined Sitting in chair with no distress Pt said that he feels fine He said that he is ready to go home today Denies any chest pain, palpitation, hematuria, dysuria and fever Objective Last 8 Hrs Date Time Temp Pulse Resp B/P (MAP) Pulse Ox O2 Delivery O2 Flow Rate FiO2 12/10/17 11:29 36.6 59 18 122/71 (88) 95 Room Air 12/10/17 08:00 96 Room Air 12/10/17 07:23 36.5 64 20 137/83 (101) 96 Room Air Physical Exam: General- No acute distress Head- atraumatic Eyes- PERRL, EOMI ENT- oropharynx clear Neck- no JVD Lungs- No wheezing Heart- regular rhythm Abdomen- normal bowel sounds, soft Extremities- no calf tenderness Neuro- alert, oriented, PERRL, EOMI; no facial palsy Skin- warm & dry Laboratory Results: Last 24 Hours Test 12/09/17 16:19 12/09/17 20:20 12/10/17 05:51 12/10/17 07:32 Bedside Glucose 98 mg/dl 108 mg/dl 110 mg/dl Prothrombin Time 26.2 SECONDS Prothromb Time International Ratio 2.5 Sodium Level 138 mmol/L Potassium Level 4.2 mmol/L Chloride Level 106 mmol/L Carbon Dioxide Level 24 mmol/L Anion Gap 8.0 mmol/L Blood Urea Nitrogen 46 mg/dl Creatinine 2.34 mg/dl Est Creatinine Clear Calc Drug Dose 30.4 ml/min Estimated GFR () 29.3 Estimated GFR (Non- 25.3 BUN/Creatinine Ratio 19.8 Random Glucose 114 mg/dl Calcium Level 9.0 mg/dl Test 12/10/17 11:37 Bedside Glucose 129 mg/dl Assessment & Plan Pt is 82 y/o M with PMH HTN, CAD s/p CABG, ischemic heart disease, chronic systolic heart failure, paroxysmal atrial fibrillation, paroxysmal VT with ICD implanted, CKD IV, HLD, hypothyroidism, BPH, DM II, hx TIA presented to ER with complaint of weakness and fever today with dysuria and hematuria yesterday. UTI Present on admission with fever associated with weakness Urine cx positive for gram negative bacilli CT abd/pelvis showed wall thickening of the bladder with subtle urothelial thickening could suggest cystitis with upper tract involvement. Urine cx grew klebsiella Will changed Zosyn to Augmentin BID to complete 7 days course of abx Has been afebrile for 48 hrs Blood cx no growth Clinically stable GENERALIZED WEAKNESS Mostly due to to UTI/infection. CT head showed no acute finding Continue PT/OT Fall precaution DM II Hba1c 7.1 on 12/09/17 Continue insulin Monitor BS HTN BP stable lasix on hold due to elevate creatine Continue monitor BP CKD IV Cr: 2.58 on admission, baseline ~2.3 Creatine today 2.3 Avoid nephrotoxic agents Monitor BMP Stable PAROXYSMAL ATRIAL FIBRILLATION HX PAROXYSMAL VT S/P ICD IMPLANTATION Rate control with metoprolol and amiodarone INR: 2.5 today. Continue coumadin Follow up with the coag clinic Monitor PT/INR ISCHEMIC CARDIOMYOPATHY CHRONIC SYSTOLIC HEART FAILURE EF: 20-25%, diffuse severe LV dysfunction. No signs of fluid overload Continue lasix Continue metoprolol and imdur HX CAD s/p CABG Hx CABG 1996. Denies any chest pain continue Imdur, metoprolol, atorvastatin, aspirin HYPOTHYROIDISM Stable Continue levothyroxine BPH Recent cystoscopy and TURP on 12/04/[address] Shultz No hematuria stable GOUT No recent flares. Continue allopurinol DVT Prophylaxis On coumadin INR 2.5 CODE STATUS FULL CODE Current Inpatient Medications: Current Inpatient Medications Medications (Trade) Dose Ordered Sig/Aleida Route Start Time Stop Time Status Last Admin Dose Admin Acetaminophen (Tylenol Tab) 650 mg Q4H PRN PO 12/08/17 15:00 01/07/18 14:59 12/08/17 23:50 650 MG Al Hydrox/Mg Hydrox/Simethicone (Maalox Max Susp) 15 ml Q4H PRN PO 12/08/17 15:00 01/07/18 14:59 Nitroglycerin (Nitrostat Tab) 0.4 mg UD PRN SL 12/08/17 15:00 01/07/18 14:59 Polyethylene (Miralax Powder Packet) 17 gm DAILY PRN PO 12/08/17 15:00 01/07/18 14:59 Miscellaneous Information (Consult) 1 ea UD PRN N/A 12/08/17 15:04 01/07/18 15:03 Insulin Glargine (Lantus Solostar Pen) 5 units Q12 SC 12/08/17 21:00 01/07/18 20:59 12/10/17 08:36 5 UNITS Insulin Aspart (novoLOG ASPART) SLIDING SCALE If C... ACHS SC 12/08/17 16:00 01/07/18 15:59 12/10/17 08:35 5 UNITS Glucose (Glucose 40% Gel) 15-30 GRAMS 15 GRAMS... UD PRN PO 12/08/17 15:00 01/07/18 14:59 Glucose (Glucose Chew Tab) 4-8 Tablets 4 Tabl... UD PRN PO 12/08/17 15:00 01/07/18 14:59 Dextrose (Dextrose 50% 50ML Syringe) 25-50ML 25ML FOR ... UD PRN IV 12/08/17 15:00 01/07/18 14:59 Glucagon (Glucagon Inj) 1 mg UD PRN SQ 12/08/17 15:00 01/07/18 14:59 Carbohydrates (Carbohydrates For Hypoglycemia) 15-30 GRAMS 15 grams if BSG 54-69... UD PRN PO 12/08/17 15:00 01/07/18 14:59 Piperacillin Sod/ Tazobactam Sod 3.375 gm/Dextrose 115 ml @ 28.75 mls/ hr Q8H IV 12/08/17 18:00 12/18/17 17:59 12/10/17 11:08 28.75 MLS/HR Allopurinol (Zyloprim Tab) 300 mg DAILY PO 12/09/17 09:00 01/08/18 08:59 12/10/17 08:22 300 MG Amiodarone HCl (Cordarone Tab) 200 mg DAILY PO 12/09/17 09:00 01/08/18 08:59 12/10/17 08:22 200 MG Aspirin (Ecotrin Tab) 81 mg DAILY PO 12/09/17 09:00 01/08/18 08:59 12/10/17 08:24 81 MG Atorvastatin Calcium (Lipitor Tab) 80 mg HS PO 12/08/17 21:00 01/07/18 20:59 12/09/17 20:31 80 MG Cholecalciferol (Vitamin D Tab) 2,000 inter.unit DAILY PO 12/09/17 09:00 01/08/18 08:59 12/10/17 08:23 2,000 INTER.UNIT Cyanocobalamin (Vitamin B-12 Tab) 500 mcg DAILY PO 12/09/17 09:00 01/08/18 08:59 12/10/17 08:25 500 MCG Gabapentin (Neurontin Cap) 400 mg HS PO 12/08/17 21:00 01/07/18 20:59 12/09/17 20:31 400 MG Gemfibrozil (Lopid Tab) 600 mg BID PO 12/08/17 21:00 01/07/18 20:59 12/10/17 08:24 600 MG Isosorbide Mononitrate (Imdur Ext Rel Tab) 30 mg DAILY PO 12/09/17 09:00 01/08/18 08:59 12/10/17 08:25 30 MG Levothyroxine Sodium (Synthroid Tab) 125 mcg DAILYBB PO 12/09/17 06:30 01/08/18 06:59 12/10/17 05:43 125 MCG Lisinopril (Zestril Tab) 2.5 mg DAILY PO 12/09/17 09:00 01/08/18 08:59 12/10/17 08:25 2.5 MG Metoprolol Succinate (Toprol Xl Tab) 100 mg QAM PO 12/09/17 09:00 01/08/18 08:59 12/10/17 08:24 100 MG Miscellaneous Information (Order Awaiting Action) 1 ea QS N/A 12/08/17 16:00 01/07/18 15:59 Warfarin Sodium (Coumadin Tab) 4 mg SuMoTuThFr@1600 PO 12/10/17 16:00 01/09/18 15:59 Warfarin Sodium (Coumadin Tab) 2 mg WeSa@1600 PO 12/09/17 16:00 01/08/18 15:59 12/09/17 16:43 2 MG
[2017-12-10] MEDS ORDERED: AMOXICILLIN/CLAVULANATE TAB 500 MG TAB PO SCH (13:30)
[2017-12-10] MEDS ORDERED: AMOX1TAB42 PO (13:31)
--- NOTE | 2017-12-10 13:40 | Discharge Instructions ---
Discharge Instructions Date of Service Dec 10, 2017. Admission Reason for Admission: Urinary Tract Infection, Weakness Discharge Discharge Diagnosis / Problem: Urinary Tract Infection/Weakness Discharge Goals Goal(s): Decrease discomfort, Improve function, Improve disease control Activity Recommendations Activity Limitations: resume your previous activity (as tolerated) . Instructions / Follow-Up Instructions / Follow-Up Follow up with your primary care provider Dr. Watt on 12/18 @ 11:05 AM Follow up with the coumadin clinic to monitor your INR (INR today 2.5) Continue coumadin Complete course of antibiotic Fall precaution Check BMP in 1 week to monitor renal function (Lab order given to patient) Monitor your blood sugar Current Hospital Diet Patient's current hospital diet: Diabetes Type 2 Diet, AHA Diet (Heart Healthy) Discharge Diet Recommended Diet: AHA Diet (Heart Healthy), Diabetes Type 2 Diet Pending Studies Studies pending at discharge: yes List of pending studies: Final blood cx result Laboratory Results Hemoglobin A1c Test 12/09/17 05:44 Range/Units Estimated Average Glucose 157 mg/dl Hemoglobin A1c 7.1 H 4.5-5.6 % Medical Emergencies . Who to Call and When: Medical Emergencies: If at any time you feel your situation is an emergency, please call 911 immediately. . Non-Emergent Contact Non-Emergency issues call your: Primary Care Provider Call Non-Emergent contact if: temperature is above 101, you have any medication questions . . "Provider Documentation" section prepared by Davian Cervantes. .
[2017-12-10 14:15] VITALS: BP 122/71; PULSE 59; TEMP 36.6; O2SAT 95
[2017-12-10] MEDS ORDERED: WARFARIN SOD 4 MG TAB PO SCH (16:00)
--- NOTE | 2017-12-11 00:23 | Discharge Summary ---
Discharge Summary Date of Service Dec 11, 2017. Discharge Summary Admission Date: Dec 08, 2017 at 14:47 Discharge Date: Dec 10, 2017 Discharge Disposition: Home Principal Diagnosis: UTI Secondary Diagnoses/Problems: GENERALIZED WEAKNESS CKD IV HTN DM TYPE 2 PAROXYSMAL ATRIAL FIBRILLATION GOUT HYPOTHYROIDISM Procedures: ABD/PELVIS WITHOUT FOR STONE CLINICAL HISTORY: 82 years-old Male presenting with abdominal pain, uti, mid abdominal pain, fever, chills, painful urination, nausea. TECHNIQUE: Multidetector CT of the abdomen and pelvis was performed without the use of intravenous contrast. IV contrast: None. A dose lowering technique was used consistent with the principles of ALARA (as low as reasonably achievable). COMPARISON: 06/06/2017. CT DOSE (mGy.cm): The estimated cumulative dose is 2524.70 mGy.cm. FINDINGS: Stitchdowns Toe Former topogram: Left subclavian implanted cardiac defibrillator with leads to the right atrium and right ventricular apex. Cardiomegaly. Lung bases: Hazy dependent opacities. Multichamber enlargement of the heart. Coronary artery calcification. Small left pleural effusion with subpleural nodularity, indeterminate without intravenous contrast. Liver: Normal morphology. Normal density. Biliary: No gross biliary ductal dilatation allowing for noncontrast technique. Normal gallbladder. Pancreas: Moderate parenchymal atrophy. Spleen: Normal noncontrast appearance. Adrenal glands: Normal noncontrast appearance. Kidneys and ureters: Punctate nonobstructing calculus in the interpolar region of the right kidney. Smaller punctate nonobstructing calculus in the lower pole of the left kidney. No hydronephrosis. Subtle urothelial thickening suggested bilaterally. Well-defined hypodensities in the kidneys likely cysts. Ureters nondilated. Bladder: Circumferential bladder wall thickening. Pelvic organs: Prostate and seminal vesicles normal. Bowel: Calcified focus adjacent to the upper rectum may represent old fat necrosis from prior appendagitis. Limited diverticulosis in the proximal and mid sigmoid colon. Normal appendix. No bowel obstruction. Peritoneal cavity: No free fluid or intraperitoneal gas. Lymph nodes: No gross lymphadenopathy allowing for noncontrast technique. Vasculature: Atherosclerosis of the normal caliber abdominal aorta. Abdominal wall: Small fat-containing umbilical hernia. Musculoskeletal: Degenerative changes of the spine. Degenerative changes of the hips and sacral iliac joints. IMPRESSION: 1. Wall thickening of the bladder with subtle urothelial thickening could suggest cystitis with upper tract involvement. 2. Nonobstructing punctate bilateral renal calculi. No hydronephrosis. 3. Small left pleural effusion with subpleural nodularity, indeterminate. Electronically signed by: Magdaleno Mckeon M.D. 12/08/2017 1:31 PM Dictated Date/Time: 12/08/2017 1:19 PM HEAD WITHOUT CONTRAST (CT) CLINICAL HISTORY: 82 years-old Male presenting with acute headache. TECHNIQUE: Multidetector CT imaging of the head was performed without the use of intravenous contrast. IV contrast: None. A dose lowering technique was used consistent with the principles of ALARA (as low as reasonably achievable). COMPARISON: 12/15/2014. CT DOSE (mGy.cm): The estimated cumulative dose is 2524.70. FINDINGS: Stitchdowns Toe Former topogram: Unremarkable. Ventricles and sulci normal in size. Periventricular and subcortical white matter hypoattenuation, nonspecific but likely indicative of chronic small vessel ischemic change. No mass effect or midline shift. No hemorrhage or acute territorial infarct. No extra-axial fluid collection. Paranasal sinuses and mastoid air cells clear. Calvarium intact. Intracranial atherosclerosis noted. IMPRESSION: 1. Chronic small vessel ischemic change. No acute intracranial abnormality. Electronically signed by: Magdaleno Mckeon M.D. 12/08/2017 1:18 PM Dictated Date/Time: 12/08/2017 1:16 PM CHEST 2 VIEWS ROUTINE CLINICAL HISTORY: weakness, fever pain COMPARISON STUDY: 06/08/2017 FINDINGS: Moderate cardiomegaly. Prior median sternotomy. Implantable cardiac pacemaker/defibrillator. Lungs otherwise are clear. Diaphragms smooth. IMPRESSION: Mild stable cardiomegaly. No acute process. The above report was generated using voice recognition software. It may contain grammatical, syntax or spelling errors. Electronically signed by: Artemio Munoz M.D. 12/08/2017 12:58 PM Dictated Date/Time: 12/08/2017 12:57 PM Medication Reconciliation New Medications: Amoxicillin & Pot Clavulanate (Amoxicillin/Clavulanate P) 1 Tab Tab 500 MG PO BIDM for 4 Days, TAB Continued Medications: Allopurinol (Allopurinol) 300 Mg Tab 300 MG PO DAILY Amiodarone Hcl (Cordarone) 200 Mg Tab 200 MG PO DAILY, TAB Aspirin (Aspirin Ec) 81 Mg Tab 81 MG PO DAILY Atorvastatin (Lipitor) 80 Mg Tab 80 MG PO HS, TAB Cholecalciferol (Vitamin D 1000 Unit) 1,000 Unit Cap 2000 INTER.UNIT PO DAILY, CAP Cyanocobalamin (Vitamin B-12) 500 Mcg Tab 500 MCG SL DAILY, TAB Dutasteride (Avodart) 0.5 Mg Cap 0.5 MG PO DAILY, CAP Furosemide (Lasix) 20 Mg Tab 20 MG PO DAILY, TAB Gabapentin (Neurontin) 400 Mg Cap 400 MG PO HS Gemfibrozil (Lopid) 600 Mg Tab 600 MG PO BID, 0 Refills Insulin Glargine (Lantus Solostar) 100 Unit/Ml Inj 10 UNITS SC QAM, PEN Isosorbide Mononitrate Ext Rel (Imdur Ext Rel) 30 Mg Ertab 1 TAB PO DAILY for 30 Days, #30 TAB 5 Refills Levothyroxine Sodium (Levothyroxine Sodium) 125 Mcg Tab 125 MCG PO DAILY, TAB 3 Refills Lisinopril (Lisinopril) 5 Mg Tab 2.5 MG PO DAILY Metoprolol Succ (Toprol Xl) (Toprol-Xl ) 100 Mg Tabcr 100 MG PO QAM, 0 Refills Nitroglycerin (Nitrostat) 0.4 Mg Tab 0.4 MG UT PRN, 0 Refills Warfarin Sodium (Warfarin Sodium) 2 Mg Tab 4 MG PO UD 2mg mon, sat 4mg sun, mon, tue, thur, fri Admission Information HPI (per Admitting provider): Pt is 82 y/o M with PMH HTN, CAD s/p CABG, ischemic heart disease, chronic systolic heart failure, paroxysmal atrial fibrillation, paroxysmal VT with ICD implanted, CKD IV, HLD, hypothyroidism, BPH, DM II, hx TIA presented to ER with complaint of weakness and fever. Patient had cystoscopy/TURP on 12/04/[address] Shultz. Patient states yesterday started with hematuria and dysuria. Was seen in ER yesterday, was afebrile, normal WBC and was given Pyridium. Urine culture 12/07/17 pinpoint growth. Patient states this morning feeling feverish with chills, sweats and shakes. Today having generalized weakness and feeling so weak that having hard time ambulating. Denies falls. Had some nausea this morning. Patient states yesterday was having some intermittent mild lower abdominal discomfort, no abdominal pain today. Denies flank pain or back pain. States past couple of days with intermittent headaches. Patient denies any hematuria or dysuria today. Denies urinary frequency or retention. Denies V/D/C , dizziness, syncope, vision changes, neck pain, CP, SOB, orthopnea, palpitations, cough, sore throat, choking, otalgia, rhinorrhea, paresthesias, extremity edema, rashes, weight changes. Physical Exam (per Admitting): General Appearance: WD/WN, no apparent distress Head: normocephalic, atraumatic Eyes: normal inspection, PERRL, EOMI, sclerae normal ENT: hearing grossly normal, pharynx normal, + pertinent finding (mucous membranes moist) Neck: supple, trachea midline Respiratory/Chest: lungs clear, normal breath sounds, no respiratory distress Cardiovascular: regular rate, rhythm, + systolic murmur Abdomen/GI: normal bowel sounds, non tender, soft Back: no CVA tenderness Neurologic/Psych: no motor/sensory deficits, alert, normal mood/affect, oriented x 3 Skin: warm/dry Hospital Course Pt is 82 y/o M with PMH HTN, CAD s/p CABG, ischemic heart disease, chronic systolic heart failure, paroxysmal atrial fibrillation, paroxysmal VT with ICD implanted, CKD IV, HLD, hypothyroidism, BPH, DM II, hx TIA presented to ER with complaint of weakness and fever today with dysuria and hematuria yesterday. UTI Present on admission with fever associated with weakness Urine cx positive for gram negative bacilli CT abd/pelvis showed wall thickening of the bladder with subtle urothelial thickening could suggest cystitis with upper tract involvement. Urine cx grew klebsiella Will changed Zosyn to Augmentin BID to complete 7 days course of abx Has been afebrile for 48 hrs Blood cx no growth Clinically stable GENERALIZED WEAKNESS Mostly due to to UTI/infection. CT head showed no acute finding Continue PT/OT Fall precaution DM II Hba1c 7.1 on 12/09/17 Continue insulin Monitor BS HTN BP stable lasix on hold due to elevate creatine Continue monitor BP CKD IV Cr: 2.58 on admission, baseline ~2.3 Creatine today 2.3 Avoid nephrotoxic agents Monitor BMP Stable PAROXYSMAL ATRIAL FIBRILLATION HX PAROXYSMAL VT S/P ICD IMPLANTATION Rate control with metoprolol and amiodarone INR: 2.5 today. Continue coumadin Follow up with the coag clinic Monitor PT/INR ISCHEMIC CARDIOMYOPATHY CHRONIC SYSTOLIC HEART FAILURE EF: 20-25%, diffuse severe LV dysfunction. No signs of fluid overload Continue lasix Continue metoprolol and imdur HX CAD s/p CABG Hx CABG 1996. Denies any chest pain continue Imdur, metoprolol, atorvastatin, aspirin HYPOTHYROIDISM Stable Continue levothyroxine BPH Recent cystoscopy and TURP on 12/04/[address] Shultz No hematuria stable GOUT No recent flares. Continue allopurinol DVT Prophylaxis On coumadin INR 2.5 CODE STATUS FULL CODE Total time spent on discharge = 35 MINUTES This includes examination of the patient, discharge planning, medication reconciliation, and communication with other providers. Discharge Instructions Discharge Instructions Date of Service Dec 10, 2017. Admission Reason for Admission: Urinary Tract Infection, Weakness Discharge Discharge Diagnosis / Problem: Urinary Tract Infection/Weakness Discharge Goals Goal(s): Decrease discomfort, Improve function, Improve disease control Activity Recommendations Activity Limitations: resume your previous activity (as tolerated) . Instructions / Follow-Up Instructions / Follow-Up Follow up with your primary care provider Dr. Watt on 12/18 @ 11:05 AM Follow up with the coumadin clinic to monitor your INR (INR today 2.5) Continue coumadin Complete course of antibiotic Fall precaution Check BMP in 1 week to monitor renal function (Lab order given to patient) Monitor your blood sugar Current Hospital Diet Patient's current hospital diet: Diabetes Type 2 Diet, AHA Diet (Heart Healthy) Discharge Diet Recommended Diet: AHA Diet (Heart Healthy), Diabetes Type 2 Diet Pending Studies Studies pending at discharge: yes List of pending studies: Final blood cx result Laboratory Results Hemoglobin A1c Test 12/09/17 05:44 Range/Units Estimated Average Glucose 157 mg/dl Hemoglobin A1c 7.1 H 4.5-5.6 % Medical Emergencies . Who to Call and When: Medical Emergencies: If at any time you feel your situation is an emergency, please call 911 immediately. . Non-Emergent Contact Non-Emergency issues call your: Primary Care Provider Call Non-Emergent contact if: temperature is above 101, you have any medication questions . . "Provider Documentation" section prepared by Davian Cervantes. . Signed: Signed: The status of this report is Draft * If report status is Draft, the document has not been finalized by the responsible provider. Additional Copies To Rogelio Watt D.O.
== END 2017-12-10 14:48 | disposition home or self-care (01) | DRG 690 ==
LOC: C.EDB 11:02 → C.MED 14:47 → ENRESERV 15:28
PROVIDERS: ADMIT Internal Medicine; ATTEND Internal Medicine
DX: N39.0 Urinary tract infection, site not specified (principal); I13.0 Hypertensive heart and chronic kidney disease with heart failure and stage 1 through stage 4 chronic kidney disease, or unspecified chronic kidney disease; I50.22 Chronic systolic (congestive) heart failure; N18.4 Chronic kidney disease, stage 4 (severe); I25.10 Atherosclerotic heart disease of native coronary artery without angina pectoris; Z95.1 Presence of aortocoronary bypass graft; E78.5 Hyperlipidemia, unspecified; E03.9 Hypothyroidism, unspecified; N40.0 Benign prostatic hyperplasia without lower urinary tract symptoms; Z86.73 Personal history of transient ischemic attack (TIA), and cerebral infarction without residual deficits; M10.9 Gout, unspecified; Z95.0 Presence of cardiac pacemaker; I48.0 Paroxysmal atrial fibrillation; Z79.01 Long term (current) use of anticoagulants; I25.5 Ischemic cardiomyopathy

== ENCOUNTER 2018-10-20 09:11 | Inpatient (IN) ==
--- OUTSIDE RECORDS SUMMARY | 2018-10-20 09:13 | External Medical Summary | Continuity of Care Document ---
:1935 Author Name Brenna Goins, Provider Address Unavailable Unavailable , Care Team Providers Name Role Phone Mesfin [email or web address] Unavailable Unavailable Unavailable Unavailable Unavailable Assessments Assessed Problems:Benign prostatic hyperplasia with urinary obstructionUrinary urgency Problems Urinary urgency (788.63) (R39.15) Benign prostatic hyperplasia with urinary obstruction (600.0 1) (N40.1) High cholesterol (272.0) (E78.00) High blood pressure (401.9) (I10) Gout (274.9) (M10.9) Diabetes (250.00) (E11.9) Allergies and Adverse Reactions Novocain SOLN (Allergy) Medications Gabapentin 300 MG Oral Capsule Refills: 0 Metoprolol Succinate ER 100 MG Oral Tablet Extended Release 24 Hour Refills: 0 Allopurinol 300 MG Oral Tablet Refills: 0 Ergocalciferol 69539 UNIT Oral Capsule Refills: 0 Levothyroxine Sodium 125 MCG Oral Tablet Refills: 0 Gemfibrozil 600 MG Oral Tablet Refills: 0 Lipitor 80 MG Oral Tablet Refills: 0 Lisinopril 2.5 MG Oral Tablet Refills: 0 Amiodarone HCl - 200 MG Oral Tablet Refills: 0 Imdur 30 MG TB24 Refills: 0 Furosemide 20 MG Oral Tablet Refills: 0 Cyanocobalamin 1000 MCG/ML Injection Solution Refills: 0 Nitroglycerin 0.4 MG/SPRAY Translingual Solution Refills: 0 Fish Oil 1000 MG Oral Capsule Refills: 0 Tolterodine Tartrate 2 MG Oral Tablet; TAKE ONE TABLET BY MOUTH TWICE DAILY Briseida Shultz Start: 05-Mar-2018 Quantity: 60 Refills: 11 Procedures History of Heart Valve Replacement Statu s: Completed History of prostate resection transurethral Status: Completed Immunizations Immunizations not documented Family History Unknown Family Member Family history of malignant neoplasm of Status: Active Comments: Family History prostate (V16.42) (Z80.42) Mother Family history of diabetes mellitus (V18.0) (Z83.3) Status: Active Family history of hypertension (V17.49) (Z82.49) Status: Act kimmie Family history of cardiac disorder (V17.49) (Z82.49) Status: Active Sister Family history of diabetes mellitus (V18.0) (Z83.3) Status: Active Brother Family history of cardiac disorder (V17.49) (Z82.49) Status: Active Interventions Follow-ups/ReferralsFollow-up visit in 6 months; Done: 09 Apr 2018 Discussion/SummaryH s/p TURP (prior TURP years ago, but redundant anterior tissue)- voiding more easily now- freq/urge still present- tolterodine BiD- stop dutasteride- f/u in 6 mos (or can f/u with Dr. Mclaughlin if he prefers) Plan of Treatment Planned Observations Planned Goals not documented Results No Known Results Results not documented Encounters Appointment; Mesfin Shultz M.D. 05-Mar-2018 14:20 Encounter Diagnosis: Problem not documented Appointment; Urology, Nursing [facility] 21-Feb-2018 9:00 Encounter Diagnosis: Problem not documented Appointment; Mesfin Shultz M.D. 20-Feb-2018 8:00 Encounter Diagnosis: Problem not documented Appointment; Mesfin Shultz M.D. 05-Feb-2018 9:50 Encounter Diagnosis: Problem not documented Appointment; Mesfin Shultz M.D. 04-Dec-2017 13:20 Encounter Diagnosis: Problem not documented Appointment; Urology, Room 7 04-Dec-2017 13:05 Encounter Diagnosis: Problem not documented Appointment; Mesfin Shultz M.D. 01-Nov-2017 9:20 Encounter Diagnosis: Problem not documented Appointment; Mesfin Shultz M.D. 09-Apr-2018 10:35 Encounter Diagnosis: Problem not documented
--- NOTE | 2018-10-20 09:42 | XRay Report ---
SINGLE VIEW CHEST CLINICAL HISTORY: Dyspnea. FINDINGS: An AP, portable, upright chest radiograph is compared to study dated 02/05/2018. Correlatio n is made with abdominal CT dated 12/08/2017. The examination is degraded by portable technique and pa tient rotation. A 2-lead cardiac AICD is unchanged in position and partially obscures the left uppe r chest. The patient is status post midline sternotomy. The heart is enlarged and there is atheroscle rotic calcification of the thoracic aorta. The pulmonary vasculature is noncongested. There is a smal l left pleural effusion with left basilar consolidation. Trace pleural effusion is seen on the right. No pneumothorax is seen. The skeletal structures are osteopenic. The bony thorax is grossly intact. IMPRESSION: 1. Cardiomegaly and AICD without radiographic evidence of congestive failure. 2. There is a small chronic left pleural effusion and a trace right pleural effusion. The left pleura l effusion appears modestly increased in size from 02/05/2018. 3. There is associated left basilar consolidation which likely represents atelectasis. Correlate clin ically for evidence of superimposed pneumonia. Electronically signed by: Dominik Bassett M.D. 10/20/2018 9:41 AM
[2018-10-20 10:06] LABS: Basophils # (auto) 0.03 K/uL (0-0.2); Basophils % (auto) 0.4 %; Eosinophils # (auto) 0.22 K/uL (0-0.5); Hematocrit (blood only) 35.2 % (42-52); Hemoglobin 11.7 g/dL (14.0-18.0); Immature Granulocytes # (auto) 0.02 K/uL (0.00-0.02); Immature Granulocytes % (auto) 0.3 %; Lymphocytes # (auto) 2.17 K/uL (1.2-3.4); Lymphocytes % (auto) 29.7 %; Mean Corpuscular Hgb Conc 33.2 g/dL (32-36); Mean Corpuscular Volume 100.9 fL (80-100); Monocytes # (auto) 1.12 K/uL (0.11-0.59); Monocytes % (auto) 15.3 %; Neutrophils # (auto) 3.75 K/uL (1.4-6.5); Neutrophils % (auto) 51.3 %; Platelet Count 242 K/uL (130-400); Red Blood Count 3.49 M/uL (4.7-6.1); White Blood Count 7.31 K/uL (4.8-10.8)
[2018-10-20 10:11] LABS: iSTAT Creatinine 2.9 mg/dl (0.6-1.3); iSTAT Hemoglobin 12.6 g/dl (14.0-18.0); iSTAT Ionized Calcium 1.12 mmol/l (1.12-1.32)
[2018-10-20 10:17] LABS: Albumin Level 3.7 gm/dl (3.4-5.0); BUN Creatinine Ratio 17.7 (10-20); Calcium 8.9 mg/dl (8.5-10.1); Creatinine Clr Calc Pharmacy 25.1 ml/min; Est GFR (African American) 24.1; Est GFR (Non-African American) 20.8; Magnesium 2.4 mg/dl (1.8-2.4); Potassium 3.7 mmol/L (3.5-5.1)
[2018-10-20 10:23] LABS: Partial Thromboplastin Ratio 1.4; Partial Thromboplastin Time 38.1 Seconds (21.0-31.0); Prothrombin Time 34.6 Seconds (9.0-12.0)
[2018-10-20 10:25] LABS: Albumin Globulin Ratio 1.1 (0.9-2); Bilirubin,Total 0.7 mg/dl (0.2-1); Globulin 3.5 gm/dl (2.5-4.0); Total Protein 7.2 gm/dl (6.4-8.2); Troponin I 0.059 ng/ml (0-0.045)
[2018-10-20 10:39] LABS: INR 3.7 (0.9-1.1)
[2018-10-20 12:02] LABS: Appearance Urine Clear (Clear); Bilirubin Urine Negative (Negative); Blood Urine Negative (Negative); Color Urine Yellow; Glucose Urine UA Negative (Negative); Ketones Urine Negative (Negative); Leukocyte Esterase Urine Negative (Negative); Nitrite Urine Negative (Negative); Protein Urine Negative (Negative); Specific Gravity Urine 1.012 (1.000-1.030); Urobilinogen Urine Negative (Negative); pH Urine 5.5 (4.5-7.5)
--- NOTE | 2018-10-20 12:18 | History & Physical Report ---
Date of Service October 20, 2018 Assessment & Plan (1) Weakness: Pt presented with c/o bilateral extremity weakness with walking for a couple of months. Denies falls. Denies extremity pain, back pain, fever/chills, urinary symptoms. DDX: infectious (possible pneumonia), pacemaker malfunction, polypharmacy (amiodarone, statin, gemfibrozil), or other -CK pending -Will hold statin, gemfibrozil at reassess -PT/OT -Further plan as below (2) Pneumonia: Pt afebrile. Reports productive cough x 3 months. O2 sat 92-95% on RA. No leukocytosis. Vitals stable CXR: Cardiomegaly without radiographic evidence of congestive failure. There is a small chronic left pleural effusion and a trace right pleural effusion. The left pleural effusion appears modestly increased in size from 02/05/2018. There is associated left basilar consolidation which likely represents atelectasis. Correlate clinically for evidence of superimposed pneumonia. Possible community acquired pneumonia -Blood cultures, sputum culture pending -Rocephin Zithromax (3) Elevated troponin: Denies CP. Troponin: 0.059 Probable demand ischemia -Trend troponin -Cardiology consult (4) History of atrial fibrillation: SUPRATHERAPEUTIC INR H/O PAF. Recent device interrogation 10/17/18 revealed a-fib RVR INR: 3.7 today. Yesterday INR: 5.0 and Coumadin has been on Hold. Denies bleeding EKG today ventricular paced rhythm, appears to be organized sinus rhythm -Device interrogation -Hold Coumadin -Monitor INR and adjust Coumadin as appropriate -Continue Metoprolol Succinate -Cardiology consult (5) Ischemic cardiomyopathy: Hx EF: 20-25% on echo 2018 S/P pacer/defibrillator H/O VT. Denies recent ICD firing. Denies CP Recent hx increased SOB with exertion. Had close outpatient f/u with cardiology on 10/17/2018 and was noted to have a 4 pound weight gain from 10/01/2018, suspected decompensated CHF and had Lasix increased to 60 mg daily x 2 days followed by 40 mg daily, Toprol-XL was increased to 100 mg daily, amiodarone increased to 200 mg twice daily. Pt since reports decreased SOB with exertion and no further PND. Does not appear to be decompensated CHF at this time. -Continue lasix 40mg po -Continue amiodarone, metoprolol succinate, isosorbide, aspirin (6) Stage 4 chronic kidney disease: Cr: 2.7. Was 2.5 on 10/17/18 and 2.2 on 08/15/18) -Monitor renal functions -Avoid nephrotoxic agents when possible (7) DM type 2 (diabetes mellitus, type 2): A1c: 6.7 on 05/07/18 -A1c in am -Continue Lantus -Novolog sliding scale per protocol (8) HTN (hypertension): Stable -Continue Metoprolol succinate (9) Hyperlipidemia: -Currently holding statin, gemfibrozil (10) Hypothyroidism: TSH: 2.6 on 10/17/18 -Continue levothyroxine (11) Gout: -Continue allopurinol DVT Prophylaxis -On Coumadin, INR supratherapeutic at 3.7. Monitor INR Full Code as per discussion with pt Follows with Dr Watt for routine care Pt was seen and care coordinated with Dr Zhu. See addendum History of Present Illness Chief Complaint: Weakness Primary Care Provider: Rogelio Watt, Pt is 83 y/o M with PMH ischemic cardiomyopathy with EF: 20-25%, CAD s/p CABG x 3, h/o VT, s/p pacer/defibrillator, Paroxysmal atrial fibrillation, CKD IV, DM II, HTN, HLD, TIA, hypothryoidism, gout presented to ER with c/o weakness. Patient with history increased shortness of breath with exertion, weakness, fatigue over the last couple months and has been following closely with cardiology. Was seen in cardiology clinic 10/01/2018 and his metoprolol XL was decreased from 100 mg to 50 mg daily and hydralazine 10 mg twice daily was added as his lisinopril had been discontinued secondary to renal insufficiency. The hydralazine was later discontinued secondary to dizziness, fatigue, shakes. Patient states Since hydralazine was discontinued he is no longer having dizziness however continues with fatigue and weakness. Patient seen cardiology clinic 10/17/2018 and was noted to have a 4 pound weight gain from 10/01/2018. It was felt that he was having decompensated CHF And his Lasix was increased to 60 mg daily for 2 days followed by 40 mg daily, Toprol-XL was increased to 100 mg daily, amiodarone increased to 200 mg twice daily. He had device interrogation which showed A. fib RVR. Had chest x-ray which showed bilateral mild pleural effusions with bibasilar atelectasis.,Patient reports since he has been having less shortness of breath with exertion. He also reports prior to Lasix increase he was having PND which has since resolved. Patient reports he continues to have bilateral lower extremity weakness with ambulation and exertion. Denies CP. Also reports his been having cough "coughing up snot" for 3 months. Denies fever or chills. reports is noticed hearing patient wheezing intermittently, more at night. Patient reports chronic rhinorrhea and nasal congestion for at least one year and does not feel increased nasal congestion. He reports bilateral hip pain for over a year which improves throughout the day with movement. Denies any increased worsening, radiation pain, back pain, leg paresthesias, saddle paresthesias or loss control bowel or bladder. Denies diaphoresis, N/V/D/C, RICHARDS, syncope, vision changes, neck pain, palpitations, hemoptysis, sore throat, choking, otalgia, abdominal pain, extremity edema, rashes, urinary symptoms. H/O Echo 05/2017: EF: 20-25%, Severe concentric left ventricular hypertrophy, apical wall motion abnormality may reflect pacemaker activation, inferior wall akinesis, posterior wall akinesis, severe global hypokinesis of left ventricle. Mild aortic valve sclerosis without significant stenosis, mild aortic regurgitation, moderate mitral regurgitation Allergies Allergy/AdvReac Type Severity Reaction Status Date / Time amlodipine AdvReac Mild INSOMNIA Verified 10/20/18 10:57 Home Medications Home Medications Medication Instructions Recorded Confirmed Type allopurinol 100 mg PO BID 10/20/18 10/20/18 History amiodarone 200 mg PO BID 10/20/18 10/20/18 History aspirin 81 mg PO DAILY 10/20/18 10/20/18 History atorvastatin 80 mg PO PM 10/20/18 10/20/18 History cyanocobalamin (vitamin B-12) 1,500 mcg PO QAM 10/20/18 10/20/18 History furosemide 40 mg PO QAM 10/20/18 10/20/18 History gabapentin 400 mg PO HS 10/20/18 10/20/18 History gemfibrozil 600 mg PO BID 10/20/18 10/20/18 History insulin glargine [Lantus Solostar 10 unit SUBCUT QAM 10/20/18 10/20/18 History U-100 Insulin] isosorbide mononitrate 30 mg PO QAM 10/20/18 10/20/18 History levothyroxine 125 mcg PO DAILY@0600 10/20/18 10/20/18 History metoprolol succinate 100 mg PO QAM 10/20/18 10/20/18 History warfarin 2 mg PO DAILY@1600 10/20/18 10/20/18 History Past Med/Surg History Medical History Hearing deficit (Chronic) BPH (benign prostatic hyperplasia) (Chronic) Osteoarthritis (Chronic) Obesity (Chronic) Anemia (Chronic) History of atrial fibrillation (Chronic) History PAF Pacemaker (Chronic) Dual chamber pacer/defibrillator HTN (hypertension) (Chronic) Hyperlipidemia (Chronic) Gout (Chronic) BPH (benign prostatic hyperplasia) (Chronic) V tach (Chronic) H/O VT Ischemic cardiomyopathy (Chronic) Systolic heart failure (Chronic) Hx of cardiac pacemaker (Chronic) Hypothyroidism (Chronic) Stage 4 chronic kidney disease (Chronic) CAD (coronary artery disease) (Chronic) "s/p CABG 1996" Surgical History History of colonoscopy (Chronic) History of tonsillectomy (Chronic) History of tooth extraction (Chronic) History of eye surgery (Chronic) History of cardiac cath (Chronic) ICD (implantable cardioverter-defibrillator) in place (Chronic) IMPLANTED 2003; GENERATOR CHANGE 2009 Hx of CABG (Chronic) "" Hx of transurethral resection of prostate (Chronic) Family History Brother Prostate cancer Diabetes Coronary heart disease Mother Diabetes Stroke Coronary heart disease Father Stroke Social History Preferred Language: Jamaican Communication Ability: Effective Polysom Tech Required: No Beliefs That Will Affect Care: None Current Living Situation: Spouse Other Information That Helps Us Care for You: No Feels Safe at Home: Yes Safety Concerns: Feels Safe At This Time Smoking Status: Never smoker Second Hand Exposure: Yes (USED TO BE AT WORK (RETIRED 1996)) Hx Alcohol Use: Yes Alcohol type: beer Hx Substance Use: Yes (Hx. of prescribed pain medication.) substance use type: does not use and prescription drug Review of Systems Review of Systems: All systems reviewed & are unremarkable except as noted in HPI & below Physical Exam Physical Exam: General: no distress, WDWN Head: normocephalic, atraumatic Eyes: PERRL, EOM's intact, conjunctiva non-injected, anicteric ENT: normal inspection external ears, nose, mucous membranes moist Neck: supple, trachea midline Lungs: no respiratory distress, faint rhonchi at bases CV: RRR, no murmur, no JVD, no pretibial edema Abd: normal BS, soft, non-tender Ext: no cyanosis, no calf tenderness, distal pulses palpable, strength 4-5/5 of bilateral legs tested while in bed Neuro: A&O x 3, no focal deficits noted, normal affect Skin: warm, dry Results & Data Vital Signs (Past 12 Hours) Vital Signs Temp Pulse Resp BP Pulse Ox 10/20/18 11:31 69 22 144/88 H 10/20/18 11:27 71 14 97/63 L 10/20/18 11:01 69 18 95 10/20/18 11:00 69 18 143/88 H 95 10/20/18 10:30 80 26 H 146/88 H 94 10/20/18 10:01 80 21 96 10/20/18 10:00 80 26 H 153/97 H 96 10/20/18 09:31 92 10/20/18 09:30 81 13 132/94 96 10/20/18 09:14 36.4 C L 83 18 114/68 97 Laboratory Results Short CBC 10/20/18 Range/Units 09:55 WBC 7.31 (4.8-10.8) K/uL Hgb 11.7 L (14.0-18.0) g/dL Hct 35.2 L (42-52) % Plt Count 242 (130-400) K/uL BMP 10/20/18 09:55 Sodium 140 Potassium 3.7 Chloride 105 Carbon Dioxide 28 BUN 48 H Creatinine 2.74 H Glucose 101 H Calcium 8.9 Cardiac Enzymes 10/20/18 Range/Units 09:55 Troponin I 0.059 H* (0-0.045) ng/ml Liver Function 10/20/18 Range/Units 09:55 Total Bilirubin 0.7 (0.2-1) mg/dl AST 33 (15-37) U/L ALT 38 (12-78) U/L Alkaline Phosphatase 91 (45-117) U/L Albumin 3.7 (3.4-5.0) gm/dl Urine 10/20/18 Range/Units 11:30 Urine Color Yellow Urine Appearance Clear (Clear) Urine pH 5.5 (4.5-7.5) Ur Specific [place] 1.012 (1.000-1.030) Urine Protein Negative (Negative) Urine Glucose (UA) Negative (Negative) Diagnostic Findings CXR: IMPRESSION: 1. Cardiomegaly and AICD without radiographic evidence of congestive failure. 2. There is a small chronic left pleural effusion and a trace right pleural effusion. The left pleural effusion appears modestly increased in size from 02/05/2018. 3. There is associated left basilar consolidation which likely represents atelectasis. Correlate clinically for evidence of superimposed pneumonia. Supervising Physician Co-Signing Physician Notes I have seen and examined the patient and have discussed the case with the provider above. I agree with the assessment and plan as stated with the following exceptions. Mr. Burris is an 83-year-old man with a history of cardiomyopathy status post ICD placement who presents with worsening weakness in the legs. He was recently seen by his cardiology group a few days ago and had dyspnea at that time. He was also found to be in atrial fibrillation with RVR. Amiodarone was increased to 200 mg twice daily and furosemide was increased. As a result he feels better from a breathing standpoint today but reports his weakness in his legs is not improved. This is limiting his ability to exert himself and his quality of life. He denies any chest pain or other concerning symptoms today. However, he does report some productive sputum over the last 3 months and chest x-ray reveals a worsened left pleural effusion when compared to prior admission last year, that cannot exclude an infectious pneumonia. Physical exam reveals a euvolemic patient who is well compensated. He is hemodynamically stable, no conversational dyspnea is present, no peripheral edema is present. Lungs are clear to auscultation with minor rhonchi heard intermittently at the bases bilaterally. S1/S2 heard on cardiac auscultation with no evidence of murmur, gallop or rub. Peripheral pulses are 2+ bilaterally. Etiology for his weakness includes but is not limited to possible pacemaker malfunction, polypharmacy in the setting of amiodarone, Lipitor 80, gemfibrozil 600 mg p.o. twice daily, or infectious pneumonia. Plan as above including pacemaker interrogation and cardiology consult, holding Lipitor and gemfibrozil pending a CK level and trial off these to see if weakness is improved, and treatment as above for infectious pneumonia. DO Marko
[2018-10-20] MEDS ORDERED: NITROGLYCERIN SL 0.4 MG/TAB TAB SL PRN (13:19)
[2018-10-20] MEDS ORDERED: GLUCOSE 10 TABS/TUBE PO PRN (13:19)
[2018-10-20] MEDS ORDERED: GLUCAGON FOR INJ 1 MG VIAL SQ PRN (13:19)
[2018-10-20] MEDS ORDERED: GLUCOSE 40% GEL 15 GM TUBE PO PRN (13:19)
[2018-10-20] MEDS ORDERED: POLYETHYLENE (MIRALAX) 17 GM PACK PO PRN (13:19)
[2018-10-20] MEDS ORDERED: ACETAMINOPHEN 325 MG TAB PO PRN (13:19)
[2018-10-20] MEDS ORDERED: CARBOHYDRATES FOR HYPOGLYCEMIA PO PRN (13:19)
[2018-10-20] MEDS ORDERED: ONDANSETRON INJ 2 MG/ML 2 ML VIAL IV PRN (13:19)
[2018-10-20] MEDS ORDERED: AZITHROMYCIN 500 MG in DEXTROSE 5% 250 ML IV ONE (13:19)
[2018-10-20] MEDS ORDERED: DEXTROSE 50% 50 ML SYRINGE IV PRN (13:19)
[2018-10-20] MEDS ORDERED: cefTRIAXone SODIUM 2,000 MG in DEXTROSE 5% 50 ML IV SCH (14:00)
[2018-10-20] MEDS ORDERED: DOXYCYCLINE HYCLATE 100 MG in DEXTROSE 5% 100 ML IV STA (14:09)
[2018-10-20] MEDS: INSULIN GLARGINE SOLOSTAR 100 UNITS/ML 3 ML PEN SC SCH (14:27)
[2018-10-20] MEDS: INSULIN ASPART 100 UNITS/ML 3 ML PEN SC SCH ×3 (14:28→21:01)
--- NOTE | 2018-10-20 16:44 | Emergency Department Note ---
Entered by Kaycee Phillips acting as a scribe for Thad Esteban DO History of Present Illness General Chief complaint: Shortness of Breath/Dyspnea Stated complaint: SOB Time Seen by Provider: 10/20/18 09:20 Source: patient Mode of arrival: ambulatory Limitations: no limitations History of Present Illness Onset (ago): hour(s) 2 Location: chest Radiation: non-radiation Pain Consistency: + constant Maximum Pain Intensity: 0 Relieved By: + none Exacerbated By: + none Associated symptoms: + other (-abdominal pain, -rattling in chest, -swelling in legs); no chest pain The patient is an 82 year old male who presents to the ED with complaints of shortness of breath. He states as he was walking from his bathroom to the bedroom this morning, he began to feel increasingly short of breath. He denies any chest pain. The patient admits to a history of CKD and states 3 days ago, he took 3 doses of his Lasix, then yesterday went back to a double dose, per recommendation from his [employer]. He reports he has lost 8 pounds recently. He denies any swelling in his legs. He denies any rattling in his chest or abd ominal pain. He does take daily Coumadin for a history of atrial fibrillation. Home Medications Home Medications Medication Instructions Recorded Confirmed Type allopurinol 100 mg PO BID 10/20/18 10/20/18 History amiodarone 200 mg PO BID 10/20/18 10/20/18 History aspirin 81 mg PO DAILY 10/20/18 10/20/18 History atorvastatin 80 mg PO PM 10/20/18 10/20/18 History cyanocobalamin (vitamin B-12) 1,500 mcg PO QAM 10/20/18 10/20/18 History furosemide 40 mg PO QAM 10/20/18 10/20/18 History gabapentin 400 mg PO HS 10/20/18 10/20/18 History gemfibrozil 600 mg PO BID 10/20/18 10/20/18 History insulin glargine [Lantus Solostar 10 unit SUBCUT QAM 10/20/18 10/20/18 History U-100 Insulin] isosorbide mononitrate 30 mg PO QAM 10/20/18 10/20/18 History levothyroxine 125 mcg PO DAILY@0600 10/20/18 10/20/18 History metoprolol succinate 100 mg PO QAM 10/20/18 10/20/18 History warfarin 2 mg PO DAILY@1600 10/20/18 10/20/18 History Allergies Allergy/AdvReac Type Severity Reaction Status Date / Time amlodipine AdvReac Mild INSOMNIA Verified 10/20/18 10:57 Past Med/Surg History Medical History Hearing deficit (Chronic) BPH (benign prostatic hyperplasia) (Chronic) Osteoarthritis (Chronic) Obesity (Chronic) Anemia (Chronic) History of atrial fibrillation (Chronic) History PAF Pacemaker (Chronic) Dual chamber pacer/defibrillator HTN (hypertension) (Chronic) Hyperlipidemia (Chronic) Gout (Chronic) BPH (benign prostatic hyperplasia) (Chronic) V tach (Chronic) H/O VT Ischemic cardiomyopathy (Chronic) Systolic heart failure (Chronic) Hx of cardiac pacemaker (Chronic) Hypothyroidism (Chronic) Stage 4 chronic kidney disease (Chronic) CAD (coronary artery disease) (Chronic) "s/p CABG 1996" Surgical History History of colonoscopy (Chronic) History of tonsillectomy (Chronic) History of tooth extraction (Chronic) History of eye surgery (Chronic) History of cardiac cath (Chronic) ICD (implantable cardioverter-defibrillator) in place (Chronic) IMPLANTED 2003; GENERATOR CHANGE 2009 Hx of CABG (Chronic) "" Hx of transurethral resection of prostate (Chronic) Family History Brother Prostate cancer Diabetes Coronary heart disease Mother Diabetes Stroke Coronary heart disease Father Stroke Social History Preferred Language: Bulgarian Communication Ability: Effective Senior Label Specialist Required: No Beliefs That Will Affect Care: None Current Living Situation: Spouse Other Information That Helps Us Care for You: No Feels Safe at Home: Yes Safety Concerns: Feels Safe At This Time Smoking Status: Never smoker Second Hand Exposure: Yes (USED TO BE AT WORK (RETIRED 1996)) Hx Alcohol Use: Yes Alcohol type: beer Hx Substance Use: Yes (Hx. of prescribed pain medication.) substance use type: does not use and prescription drug Review of Systems See HPI for pertinent positives & negatives. and A total of 10 systems reviewed and were otherwise negative Physical Exam Vital Signs Vital Signs - 24 hr 10/20/18 09:14 10/20/18 09:30 10/20/18 09:31 Temperature 36.4 C L Temperature Source Oral Sepsis Recent Fever Within 48 Hours No Sepsis New/Unexplained Change in Mental Status No Sepsis Action Taken by Nursing No Action Required Pulse Rate 83 81 Pulse Rate from SpO2 Sensor 80 Respiratory Rate 18 13 Respiratory Depth Normal Blood Pressure 114/68 132/94 Blood Pressure Mean 83 106 Blood Pressure Position Sitting Pulse Oximetry 97 96 92 Oxygen Delivery Method Room Air Room Air Room Air Oxygen Flow Rate 92 10/20/18 10:00 10/20/18 10:01 10/20/18 10:30 Temperature Temperature Source Sepsis Recent Fever Within 48 Hours Sepsis New/Unexplained Change in Mental Status Sepsis Action Taken by Nursing Pulse Rate 80 80 80 Pulse Rate from SpO2 Sensor 80 80 81 Respiratory Rate 26 H 21 26 H Respiratory Depth Blood Pressure 153/97 H 146/88 H Blood Pressure Mean 115 107 Blood Pressure Position Pulse Oximetry 96 96 94 Oxygen Delivery Method Oxygen Flow Rate 10/20/18 11:00 10/20/18 11:01 10/20/18 11:27 Temperature Temperature Source Sepsis Recent Fever Within 48 Hours Sepsis New/Unexplained Change in Mental Status Sepsis Action Taken by Nursing Pulse Rate 69 69 71 Pulse Rate from SpO2 Sensor 70 69 Respiratory Rate 18 18 14 Respiratory Depth Blood Pressure 143/88 H 97/63 L Blood Pressure Mean 106 74 Blood Pressure Position Pulse Oximetry 95 95 Oxygen Delivery Method Oxygen Flow Rate 10/20/18 11:31 10/20/18 11:32 Temperature Temperature Source Sepsis Recent Fever Within 48 Hours Sepsis New/Unexplained Change in Mental Status Sepsis Action Taken by Nursing Pulse Rate 69 69 Pulse Rate from SpO2 Sensor Respiratory Rate 22 28 H Respiratory Depth Blood Pressure 144/88 H Blood Pressure Mean 106 Blood Pressure Position Pulse Oximetry Oxygen Delivery Method Oxygen Flow Rate GENERAL: Patient is awake, alert, and in no acute distress.Patient is resting comfortably and showing no signs of anxiety EYES: The conjunctivae are clear. The pupils are round and reactive. EARS, NOSE, MOUTH AND THROAT: The nose is without any evidence of any deformity. Mucous membranes are moist.Tongue is midline NECK: The neck is nontender and supple. RESPIRATORY: Diminished in the left lung field, rales at both bases, mild conversational dyspnea. CARDIOVASCULAR: Heart sounds are tachycardic but regular, no definite murmur noted. GASTROINTESTINAL: The abdomen is soft. Bowel sounds are present in all quadrants. Abdomen is nontender. MUSCULOSKELETAL/EXTREMITIES: There is no evidence of gross deformity. Full range of motion is noted in the hips and shoulders. SKIN: Trace pedal edema. There is no obvious evidence of any rash. There are no petechiae, pallor or cyanosis noted. NEUROLOGIC: Patient is awake alert and oriented x3. Course 0928: The patient was evaluated in room B10 and a complete history and physical were performed. 1111: I reevaluated the patient. I discussed his results and my recommendation he remain in the hospital for further evaluation and he verbalized complete understanding and agreement. 1112: I discussed the patients case with Kary Aguilar PA-C, [facility]. The patient will be further evaluated. Consultations Consultation #1: I discussed the patients case with Kary Aguilar PA-C, [facility]. The patient will be further evaluated. Time: 11:12 Administered Medications Ceftriaxone Sodium 2,000 mg/ (Dextrose) 70 mls @ 140 mls/hr IV Q24H [facility]; Protocol Stop: 10/27/18 13:59 Last Infusion: 10/20/18 15:02 Dose: 0 mls/hr Documented by: [id number] Admin: 10/20/18 14:32 Dose: 140 mls/hr Documented by: [id number] Insulin Aspart (Novolog Flexpen) 0 units SC ACHS [facility] Stop: 11/19/18 16:29 Last Admin: 10/20/18 14:28 Dose: 1 units Documented by: [id number] Cosigned by: [id number] Insulin Glargine (Lantus Solostar Pen) 9 units SC QAM [facility] Stop: 11/19/18 13:18 Last Admin: 10/20/18 14:27 Dose: 9 units Documented by: [id number] Cosigned by: [id number] Discontinued Medications Azithromycin 500 mg/ Dextrose 255 mls @ 125 mls/hr IV ONE ONE Stop: 10/20/18 15:21 Last Admin: 10/20/18 15:30 Dose: Not Given Documented by: [id number] Doxycycline Hyclate 100 mg/ (Dextrose) 110 mls @ 50 mls/hr IV NOW STA Stop: 10/20/18 16:20 Last Admin: 10/20/18 14:33 Dose: 50 mls/hr Documented by: [id number] Medical Decision Making Differential Diagnosis Differential: Infectious, Reactive Airway Disease, Pneumonia, Pneumothorax, COPD, CHF, ACS, Pulmonary Embolism, MSK, GI, Dissection, amongst other etiologies entertained. Medical Records Attestation: I reviewed the patient's medical records. Home Medications Current Medication List: was personally reviewed by me Laboratory Data Attestation: I reviewed the patient's lab results. Result diagrams: 10/20/18 09:55 10/20/18 09:55 Lab Results 10/20/18 10/20/18 10/20/18 Range/Units 09:44 09:55 09:55 WBC 7.31 (4.8-10.8) K/uL RBC 3.49 L (4.7-6.1) M/uL Hgb 11.7 L (14.0-18.0) g/dL POC Hgb 12.6 L (14.0-18.0) g/dl Hct 35.2 L (42-52) % POC Hct 37 L (42-52) % MCV 100.9 H (80-100) fL MCH 33.5 (25-34) pg MCHC 33.2 (32-36) g/dL RDW Std Deviation 58.0 H (36.4-46.3) fL RDW Coeff of [place] 16.0 H (11.5-14.5) % Plt Count 242 (130-400) K/uL MPV 11.0 H (7.4-10.4) fL Immature Gran % (Auto) 0.3 % Neut % (Auto) 51.3 % Lymph % (Auto) 29.7 % [place] % (Auto) 15.3 % Eos % (Auto) 3.0 % Baso % (Auto) 0.4 % Immature Gran # (Auto) 0.02 (0.00-0.02) K/uL Neut # (Auto) 3.75 (1.4-6.5) K/uL Lymph # (Auto) 2.17 (1.2-3.4) K/uL [place] # (Auto) 1.12 H (0.11-0.59) K/uL Eos # (Auto) 0.22 (0-0.5) K/uL Baso # (Auto) 0.03 (0-0.2) K/uL PT 34.6 H (9.0-12.0) Seconds INR 3.7 H (0.9-1.1) APTT 38.1 H (21.0-31.0) Seconds PTT Ratio 1.4 POC Sodium 141 (135-144) mEq/L Sodium (136-145) mmol/L POC Potassium 4.0 (3.3-5.0) mEq/L Potassium (3.5-5.1) mmol/L POC Chloride 102 (101-112) mEq/L Chloride (98-107) mmol/L Carbon Dioxide (21-32) mmol/L POC Total CO2 27 (24-31) mEq/l Anion Gap (3-11) POC Anion Gap 17.0 (16-25) mmol/L POC BUN 47 H (7-18) mg/dl BUN (7-18) mg/dl Creatinine (0.6-1.4) mg/dl POC Creatinine 2.9 H (0.6-1.3) mg/dl Est Cr Clr Drug Dosing ml/min Est GFR ( Amer) Est GFR (Non-Af Amer) BUN/Creatinine Ratio (10-20) Glucose (70-99) mg/dl POC Glucose (other) 108 H (70-99) mg/dl Calcium (8.5-10.1) mg/dl POC Ioniz Calcium [place] 1.12 (1.12-1.32) mmol/l Magnesium (1.8-2.4) mg/dl Total Bilirubin (0.2-1) mg/dl AST (15-37) U/L ALT (12-78) U/L Alkaline Phosphatase (45-117) U/L Troponin I (0-0.045) ng/ml Total Protein (6.4-8.2) gm/dl Albumin (3.4-5.0) gm/dl Globulin (2.5-4.0) gm/dl Albumin/Globulin Ratio (0.9-2) Urine Color Urine Appearance (Clear) Urine pH (4.5-7.5) Ur Specific [place] (1.000-1.030) Urine Protein (Negative) Urine Glucose (UA) (Negative) Urine Ketones (Negative) Urine Blood (Negative) Urine Nitrite (Negative) Urine Bilirubin (Negative) Urine Urobilinogen (Negative) Ur Leukocyte Esterase (Negative) 10/20/18 10/20/18 Range/Units 09:55 11:30 WBC (4.8-10.8) K/uL RBC (4.7-6.1) M/uL Hgb (14.0-18.0) g/dL POC Hgb (14.0-18.0) g/dl Hct (42-52) % POC Hct (42-52) % MCV (80-100) fL MCH (25-34) pg MCHC (32-36) g/dL RDW Std Deviation (36.4-46.3) fL RDW Coeff of [place] (11.5-14.5) % Plt Count (130-400) K/uL MPV (7.4-10.4) fL Immature Gran % (Auto) % Neut % (Auto) % Lymph % (Auto) % [place] % (Auto) % Eos % (Auto) % Baso % (Auto) % Immature Gran # (Auto) (0.00-0.02) K/uL Neut # (Auto) (1.4-6.5) K/uL Lymph # (Auto) (1.2-3.4) K/uL [place] # (Auto) (0.11-0.59) K/uL Eos # (Auto) (0-0.5) K/uL Baso # (Auto) (0-0.2) K/uL PT (9.0-12.0) Seconds INR (0.9-1.1) APTT (21.0-31.0) Seconds PTT Ratio POC Sodium (135-144) mEq/L Sodium 140 (136-145) mmol/L POC Potassium (3.3-5.0) mEq/L Potassium 3.7 (3.5-5.1) mmol/L POC Chloride (101-112) mEq/L Chloride 105 (98-107) mmol/L Carbon Dioxide 28 (21-32) mmol/L POC Total CO2 (24-31) mEq/l Anion Gap 7.0 (3-11) POC Anion Gap (16-25) mmol/L POC BUN (7-18) mg/dl BUN 48 H (7-18) mg/dl Creatinine 2.74 H (0.6-1.4) mg/dl POC Creatinine (0.6-1.3) mg/dl Est Cr Clr Drug Dosing 25.1 ml/min Est GFR ( Amer) 24.1 Est GFR (Non-Af Amer) 20.8 BUN/Creatinine Ratio 17.7 (10-20) Glucose 101 H (70-99) mg/dl POC Glucose (other) (70-99) mg/dl Calcium 8.9 (8.5-10.1) mg/dl POC Ioniz Calcium [place] (1.12-1.32) mmol/l Magnesium 2.4 (1.8-2.4) mg/dl Total Bilirubin 0.7 (0.2-1) mg/dl AST 33 (15-37) U/L ALT 38 (12-78) U/L Alkaline Phosphatase 91 (45-117) U/L Troponin I 0.059 H* (0-0.045) ng/ml Total Protein 7.2 (6.4-8.2) gm/dl Albumin 3.7 (3.4-5.0) gm/dl Globulin 3.5 (2.5-4.0) gm/dl Albumin/Globulin Ratio 1.1 (0.9-2) Urine Color Yellow Urine Appearance Clear (Clear) Urine pH 5.5 (4.5-7.5) Ur Specific [place] 1.012 (1.000-1.030) Urine Protein Negative (Negative) Urine Glucose (UA) Negative (Negative) Urine Ketones Negative (Negative) Urine Blood Negative (Negative) Urine Nitrite Negative (Negative) Urine Bilirubin Negative (Negative) Urine Urobilinogen Negative (Negative) Ur Leukocyte Esterase Negative (Negative) Imaging Data Radiologist's Impression: Radiology results as stated below per my review and the radiologist's interpretation: SINGLE VIEW CHEST CLINICAL HISTORY: Dyspnea. FINDINGS: An AP, portable, upright chest radiograph is compared to study dated 02/05/2018. Correlation is made with abdominal CT dated 12/08/2017. The examination is degraded by portable technique and patient rotation. A 2-lead cardiac AICD is unchanged in position and partially obscures the left upper chest. The patient is status post midline sternotomy. The heart is enlarged and there is atherosclerotic calcification of the thoracic aorta. The pulmonary vasculature is noncongested. There is a small left pleural effusion with left basilar consolidation. Trace pleural effusion is seen on the right. No pneumothorax is seen. The skeletal structures are osteopenic. The bony thorax is grossly intact. IMPRESSION: 1. Cardiomegaly and AICD without radiographic evidence of congestive failure. 2. There is a small chronic left pleural effusion and a trace right pleural e ffusion. The left pleural effusion appears modestly increased in size from 02/05/2018. 3. There is associated left basilar consolidation which likely represents atelectasis. Correlate clinically for evidence of superimposed pneumonia. Electronically signed by: Dominik Bassett M.D. 10/20/2018 9:41 AM ECG Data Attestation: I personally reviewed and interpreted this ECG as follows: Indication: SOB/dyspnea Rate (beats per minute): 81 Rhythm: other (ventricularly paced) Findings: + other (QRS is 170, no [place] beats) Comparison ECG Date: from (01/31/2018) Change: the following changes noted (No significant change but QRS is longer today) Blood Pressure Blood Pressure Findings: Normal blood pressure Blood Pressure Disposition: did not require urgent referral MDM Narrative The patient is an 83-year-old male who presented to the emergency department for an evaluation of dyspnea. The patient was experienced exertional dyspnea. He does have a cardiac history requiring AICD. He does have a pacemaker. His EKG showed some widening of his QRS complex compared to baseline. His troponin was mildly elevated in the emergency department. The patient has no exertional chest pain at this time. I discussed the patient's laboratory and radiographic studies with him. He has an enlargement of his cardiac silhouette on chest x- ray as well as a left lateral fusion. It is possible this represents a change in the patient's cardiac status. He may require further work-up such as echocardiogram as well as further cardiology testing. Because of his symptoms I discussed his case with the on-call [facility] hospitalist group. The patient has had some changes in his medications recently and is possible he may require further cardiac evaluation. They have agreed to evaluate the patient in the emergency department for further management and disposition. Impression & Plan Dyspnea, Elevated troponin, Pleural effusion, left Discharge Plan Visit Data *Final* Discharge Date/Time: 10/20/18 13:10 Chief Complaint: Shortness of Breath/Dyspnea Stated Complaint: SOB ED Provider: Thad Esteban Discharge Problem: Dyspnea, Elevated troponin, Pleural effusion, left Patient Disposition: Admitted As Inpatient Discharge Instructions Interventions: ED Discharge Assessment Last Done: 10/20/18 13:10 The scribe's documentation has been prepared under my direction and personally reviewed by me in its entirety. I confirm that the note above accurately reflects all work, treatment, procedures, and medical decision making performed by me.
[2018-10-20] MEDS ORDERED: GABAPENTIN 400 MG CAP PO SCH (21:00)
[2018-10-20] MEDS: ALLOPURINOL 100 MG TAB PO SCH (21:01)
[2018-10-20] MEDS: AMIODARONE 200 MG TAB PO SCH (21:01)
[2018-10-21] MEDS ORDERED: LEVOTHYROXINE SODIUM 125 MCG TABLET PO SCH (06:00)
[2018-10-21 07:00] LABS: Hematocrit (blood only) 37.5 % (42-52); Hemoglobin 11.9 g/dL (14.0-18.0); Mean Corpuscular Hgb Conc 31.7 g/dL (32-36); Mean Corpuscular Volume 101.1 fL (80-100); Mean Platelet Volume 11.2 fL (7.4-10.4); Platelet Count 262 K/uL (130-400); RDW Coefficient of Variation 15.7 % (11.5-14.5); Red Blood Count 3.71 M/uL (4.7-6.1); White Blood Count 9.16 K/uL (4.8-10.8)
[2018-10-21 07:09] LABS: INR 2.4 (0.9-1.1); Prothrombin Time 23.4 Seconds (9.0-12.0)
[2018-10-21] MEDS ORDERED: ALUMINUM/MAGNESIUM SUSP 30 ML UDC PO STA (07:20)
[2018-10-21] MEDS ORDERED: SUCRALFATE 1 GM/10 ML UDC PO STA (07:22)
[2018-10-21 07:35] LABS: BUN Creatinine Ratio 19.5 (10-20); Creatinine Clr Calc Pharmacy 24.4 ml/min; Est GFR (African American) 23.3; Est GFR (Non-African American) 20.1; Magnesium 2.4 mg/dl (1.8-2.4); Potassium 3.8 mmol/L (3.5-5.1)
--- NOTE | 2018-10-21 08:19 | XRay Report ---
XR abdomen min 2V CLINICAL HISTORY: abdomen pain COMPARISON STUDY: No previous studies for comparison. FINDINGS: The examination was performed in a portable fashion. There is scattered stool throughout th e colon. There is no pathologic bowel dilatation. There are no transition zone to indicate bowel obst ruction. No free air is identified on the erect study. There are suspected bilateral pleural effusion s with basilar atelectasis/consolidation. IMPRESSION: 1. No evidence of bowel obstruction. No evidence of free air 2. Bilateral pleural effusions Electronically signed by: Elder Myers M.D. 10/21/2018 8:18 AM
[2018-10-21] MEDS: INSULIN ASPART 100 UNITS/ML 3 ML PEN SC SCH (08:22)
[2018-10-21] MEDS: INSULIN GLARGINE SOLOSTAR 100 UNITS/ML 3 ML PEN SC SCH (08:23)
[2018-10-21] MEDS: AMIODARONE 200 MG TAB PO SCH (08:25)
[2018-10-21] MEDS: ALLOPURINOL 100 MG TAB PO SCH (08:27)
[2018-10-21] MEDS ORDERED: CYANOCOBALAMIN 500 MCG TABLET (VITAMIN B-12) PO SCH (09:00)
[2018-10-21] MEDS ORDERED: ASPIRIN 81 MG ECTAB PO SCH (09:00)
[2018-10-21] MEDS ORDERED: AZITHROMYCIN 250 MG TAB PO SCH (09:00)
[2018-10-21] MEDS ORDERED: ISOSORBIDE MONO EXTENDED REL 30 MG TABCR PO SCH (09:00)
[2018-10-21] MEDS ORDERED: DOXYCYCLINE HYCLATE 100 MG CAP PO SCH (09:00)
[2018-10-21] MEDS ORDERED: METOPROLOL SUCC 50MG EXT REL TAB PO SCH (09:00)
[2018-10-21] MEDS ORDERED: FUROSEMIDE 20 MG TAB PO SCH (09:00)
[2018-10-21] MEDS ORDERED: METOCLOPRAMIDE HCL INJ 5 MG/ML 2 ML VIAL IV ONE (10:49)
[2018-10-21] MEDS ORDERED: METOCLOPRAMIDE HCL INJ 5 MG/ML 2 ML VIAL ONE (10:52)
[2018-10-21] MEDS ORDERED: METOCLOPRAMIDE HCL 5 MG TABLET PO PRN (11:06)
--- NOTE | 2018-10-21 11:16 | Hospitalist Progress Note ---
Date of Service October 21, 2018 Assessment & Plan (1) Weakness: History of Present Illness "Pt is 83 y/o M with PMH ischemic cardiomyopathy with EF: 20-25%, CAD s/p CABG x 3, h/o VT, s/p pacer/defibrillator, Paroxysmal atrial fibrillation, CKD IV, DM II, HTN, HLD, TIA, hypothryoidism, gout presented to ER with c/o weakness. Patient with history increased shortness of breath with exertion, weakness, fatigue over the last couple months and has been following closely with cardiology. Was seen in cardiology clinic 10/01/2018 and his metoprolol XL was decreased from 100 mg to 50 mg daily and hydralazine 10 mg twice daily was added as his lisinopril had been discontinued secondary to renal insufficiency. The hydralazine was later discontinued secondary to dizziness, fatigue, shakes. Patient states Since hydralazine was discontinued he is no longer having dizziness however continues with fatigue and weakness. Patient seen cardiology clinic 10/17/2018 and was noted to have a 4 pound weight gain from 10/01/2018. It was felt that he was having decompensated CHF And his Lasix was increased to 60 mg daily for 2 days followed by 40 mg daily, Toprol-XL was increased to 100 mg daily, amiodarone increased to 200 mg twice daily. He had device interrogation which showed A. fib RVR. Had chest x-ray which showed bilateral mild pleural effusions with bibasilar atelectasis.,Patient reports since he has been having less shortness of breath with exertion. He also reports prior to Lasix increase he was having PND which has since resolved. Patient reports he continues to have bilateral lower extremity weakness with ambulation and exertion. Denies CP. Also reports his been having cough "coughing up snot" for 3 months. Denies fever or chills. reports is noticed hearing patient wheezing intermittently, more at night. Patient reports chronic rhinorrhea and nasal congestion for at least one year and does not feel increased nasal congestion. He reports bilateral hip pain for over a year which improves throughout the day with movement. Denies any increased worsening, radiation pain, back pain, leg paresthesias, saddle paresthesias or loss control bowel or bladder. Denies diaphoresis, N/V/D/C, RICHARDS, syncope, vision changes, neck pain, palpitations, hemoptysis, sore throat, choking, otalgia, abdominal pain, extremity edema, rashes, urinary symptoms." Diagnosis: Nausea admission diagnosis of weakness possible pneumonia of left lower lobe small chronic left pleural effusion and a trace right pleural effusion supratherapeutic INR on admission. Ischemic cardiomyopathy, chronic. minimally elevated troponins of 0.059. Stage 4 chronic kidney disease. Type 2 diabetes mellitus without complication with senior care current use of insulin. Hypothyroidism on Levothyroxine -Patient seen and evaluated by hospitalist and community health counselor and physical therapist/occupational therapist -Overall impression, that patient appears to have adequate functional status. despite complaints of weakness of the legs, patient has been able to ambulate on room air in the hospital without acute shortness of breath and without oxygen desaturation and with normal creatinine kinase. Patient has small chronic left pleural effusion and a trace right pleural effusion is breathing on room air and without respiratory distress. While there may be a possible pneumonia of left lower lobe as suggested by initial admitting hospitalist assessment for which patient was given ceftriaxone and doxycycline, patient likely has these effusions secondary to chronic Ischemic cardiomyopathy. There are minimally elevated troponins of 0.059 but this should also be seen in the context of patient's Stage 4 chronic kidney disease. Patient's initial admission INR was 3.7 and with coumadin held, the INR is 2.4. The target INR is between 2 to 3. -Patient should continue to take current home dose of coumadin and have INR check with next clinical visit to cardiology and primary care doctor. -Patient was evaluated in the hospital by Dr. Fisher and he recommended that patient continue outpatient cardiovascular medications including the aspirin, furosemide, isosorbide, metoprolol, and atorvastatin. -Dr. Fisher asked patient to take amiodarone 200 mg tablet as once a day rather than twice a day -Hospitalist to prescribed patient with antibiotic of Augmentin 500 mg BID twice a day for 7 days in case of a possible pneumonia of left lower lobe. Patient should have Chest X ray repeated by primary care doctor on next clinic visit. Blood cultures are pending -Patient should continue home dose diabetes medication and home dose thyroid medications (TSH of 1.6 is within normal limits) -Patient had abdominal cramping that resolved with Maalox and Carafate which relieved symptoms and abdomen X ray was negative; he had episode of small amount of watery emesis likely. Patient was given Reglan IV. Patient also has prescriptions for Reglan. Have asked patient if he would like to stay further until certain that nausea has resolved but patient would like to be discharged form the hospital. Patient's son also at bedside when discussed pros and cons of hospital discharge. Patient encouraged to come back to the hospital if more symptoms of nausea -Appointments 10/24/2018 12:30 PM Provider Artemio Gottlieb PA-C Department Cardiology, [facility] 10/24/2018 1:00 PM Provider Mundo Shah DO Department Inter[facility], [facility] 10/24/2018 1:30 PM Provider [facility] Department Pharmacy, [facility] Primary Care Doctor 10/30/18 2:[address] Watt at [facility] Primary Care Doctor 11/09/18 10:[address] Watt at [facility] Subjective Patient has been ambulatory on room air without shortness of breath. breathing on room air at rest. No chest pain. no palpitations. no acute telemetry events. no dizziness. no lightheadedness Patient had abdominal cramping that resolved with Maalox and Carafate which relieved symptoms and abdomen X ray was negative; he had episode of small amount of watery emesis likely. Patient was given Reglan IV. Patient also has prescriptions for Reglan. Have asked patient if he would like to stay further until certain that nausea has resolved but patient would like to be discharged form the hospital. Patient's son also at bedside when discussed pros and cons of hospital discharge. Patient encouraged to come back to the hospital if more symptoms of nausea Physical Exam Constitutional: WD/WN, vitals as above Eyes: PERRL, conjunctivae normal, anicteric sclerae EOM intact bilaterally ENMT: external ear and nose normal, oropharynx normal Neck: trachea midline, no thyromegaly Respiratory: normal respiratory effort, lungs clear to auscultation Cardiovascular: RRR, no murmur, no edema Gastrointestinal (Abdomen): normal bowel sounds, soft, nontender, no hepatosplenomegaly Musculoskeletal: no cyanosis or clubbing, extremities motor strength 5/5 Head/Neck/Chest: normocephalic and head atraumatic Neurologic: PERRL, EOMI, accommodation nl, no face palsy, no dysarthria CN's II-XI intact bilaterally Psychiatric: A+Ox3, euthymic affect Results & Data Vital Signs (Past 12 Hours) Vital Signs Temp Pulse Pulse Resp BP Pulse Ox 10/21/18 10:22 98 10/21/18 07:42 117/76 10/21/18 07:40 61 10/21/18 07:27 36.7 C 61 20 154/82 H 95 10/21/18 03:56 36.7 C 64 17 129/77 94 10/21/18 00:00 36.7 C 80 112/77 95
--- NOTE | 2018-10-21 11:36 | Consultation Report ---
DATE OF CONSULTATION: 10/21/2018 INPATIENT CARDIOLOGY CONSULTATION CONSULTATION REQUESTED BY: Dr. Zhu. REASON FOR CONSULTATION: Weakness. HISTORY OF PRESENT ILLNESS: Mr. Haider is a very complex 83-year-old gentleman who normally follows with Dr. Billings and Artemio Gottlieb PA-C of our cardiology practice. He presented to [facility] on 10/20/2018 with complaints of lower extremity weakness. When asked, the patient states that the weakness started in 08/2017. He states that he has been very sedentary due to his back pain and notes that he just does not have any energy anymore. He states that when he tries to walk, his legs get very weak and on the that seemed to worsen, so he came into the Emergency Room. Initial workup was unremarkable. EKG shows sinus rhythm with ventricular pacing. No volume overload on chest x-ray and stable renal function. The patient was seen by physical therapy and was able to walk without issue other than dyspnea, but he was able to walk a significant distance and his oxygen saturations remained normal during that walk. Upon further questioning, the patient states that he has been having chest discomfort as well and this also has been going on since 08/2017. He states that whenever he walks, his chest feels tight, but upon further questioning, the discomfort appears to be pleuritic in nature, stating that it hurts when he starts breathing heavily and tries to take a deep breath. Otherwise, he states he has been taking his medications as directed without issue. Of note, he was recently seen with Artemio Gottlieb PA-C on 10/17/2018 for an acute visit. There is some question of possible volume overload at that time and he was back in atrial fibrillation. His Lasix was increased. His amiodarone was increased and again he is now in sinus rhythm with no volume overload. PAST SURGICAL HISTORY: 1. Dual chamber permanent pacemaker placement, most recently upgraded in 2014 with a [employer] device. 2. Coronary artery bypass grafting surgery x3 in 1996 with a RUSS to the LAD, a vein graft to the ramus, and a vein graft to the OM. 3. TURP. 4. Multiple cystoscopies. 5. Spinal injections. MEDICAL ILLNESSES: 1. Coronary artery disease. 2. Ischemic cardiomyopathy, EF 20%-25% with stage III [employer] heart failure. 3. Chronic stable angina. 4. History of monomorphic V-tach, on chronic amiodarone. 5. Lumbar spinal stenosis with claudication. 6. Stage IV chronic kidney disease. 7. Diabetes. 8. History of TIA. 9. Hypertension. 10. Hyperlipidemia. 11. Tachybrady syndrome, status post dual-chamber permanent pacemaker placement with 100% RV pacing. FAMILY HISTORY: Noncontributory. SOCIAL HISTORY: Denies any alcohol, tobacco or recreational drug use. He is , lives at home. Again, he has been very sedentary for over the last year. REVIEW OF SYSTEMS: As per HPI, all other review of systems reviewed and negative at this time. ALLERGIES: 1. FLOMAX. 2. AMLODIPINE. 3. FIBRATES. MEDICATIONS AN OUTPATIENT: 1. Amiodarone 200 mg b.i.d. 2. Lasix 40 mg daily. 3. Metoprolol succinate 100 mg daily. 4. Lopid daily. 5. Imdur 30 mg daily. 6. Levoxyl daily. 7. Coumadin as directed by [facility]. 8. Insulin. 9. Atorvastatin 80 mg daily. 10. Gabapentin. 11. Aspirin 81 mg daily. PHYSICAL EXAMINATION: VITAL SIGNS: Temperature 36.7, pulse 61, respiratory rate 12, blood pressure 117/76, saturating 95% on room air. GENERAL: Awake, alert, oriented x3, in no acute distress, mildly anxious. HEENT: Normocephalic, atraumatic. Pupils equal, round, reactive to light and accommodation. Extraocular muscles intact. Anicteric sclerae. Moist mucous membranes. NECK: No JVD, no bruit. CARDIOVASCULAR: Regular, but distant. Unable to appreciate any murmurs, rubs or gallops. PULMONARY: Clear to auscultation bilaterally. No rales, rhonchi, or wheezing. ABDOMEN: Bowel sounds x4, soft. No rebound, guarding, or tenderness. No organomegaly. EXTREMITIES: No clubbing, cyanosis, or edema. +2 pedal pulses bilaterally. SKIN: Warm and dry. TEST RESULTS: Chest x-ray was officially read as cardiomegaly and AICD without radiographic evidence of congestive heart failure, small chronic left pleural effusion and trace right pleural effusion. A 12-lead EKG performed in the Emergency Room independently reviewed at this time, shows ventricularly paced rhythm with underlying sinus mechanism. LABORATORY STUDIES OF SIGNIFICANCE: White count of 9, hemoglobin 11.9, platelet count of 262. Sodium 137, potassium 3.8, BUN 55, creatinine 2.82. CK of 118. Troponin of 0.05. IMPRESSION: 1. Weakness for 13 months' duration. 2. Chest pain with chronic stable angina with likely pleuritic component. 3. Tachybrady syndrome, status post dual-chamber permanent pacemaker placement with 100% right ventricular pacing. 4. Stage IV chronic kidney disease. 5. Ischemic cardiomyopathy, ejection fraction of 20%-25%. 6. Lumbar spinal stenosis with neurogenic claudication. 7. Sedentary lifestyle. RECOMMENDATIONS: From a cardiac standpoint, I do not see anything acute in regards to the patient's presentation. He is not volume overloaded and he is in sinus rhythm. He has not had any significant arrhythmias. There is no sign of any active ischemia and his renal function is stable with creatinine in the mid 2s. So from a cardiac standpoint, the patient was counseled that we can perform an ischemic workup at this time; however, should it come back positive and cardiac catheterization be necessary that would likely lead to complete renal failure and the need for hemodialysis. Given the fact that his chest pain has not changed in quite some time, I doubt this would be highly beneficial. The patient states that he agrees and will prefer not to undertake an ischemic workup at this time. The only other option from a cardiac standpoint that I could offer him will be to be evaluated for upgrade of his device to a BiV given the fact that he is 100% RV paced and a QRS in the 160 millisecond range, but again this would be an outpatient evaluation. So at this time, I recommend the patient be discharged to home with outpatient physical therapy and evaluation with electrophysiology as an outpatient for possible device upgrade. No medication changes will be made at this time except to decrease his amiodarone to 200 mg daily. He is scheduled to see Artemio Gottlieb on 10/24/2018 and will keep that appointment.
--- NOTE | 2018-10-21 11:40 | Discharge Summary ---
Date of Service October 21, 2018 Admission HPI Per Admitting Provider Pt is 83 y/o M with PMH ischemic cardiomyopathy with EF: 20-25%, CAD s/p CABG x 3, h/o VT, s/p pacer/defibrillator, Paroxysmal atrial fibrillation, CKD IV, DM II, HTN, HLD, TIA, hypothryoidism, gout presented to ER with c/o weakness. Patient with history increased shortness of breath with exertion, weakness, fatigue over the last couple months and has been following closely with cardiology. Was seen in cardiology clinic 10/01/2018 and his metoprolol XL was decreased from 100 mg to 50 mg daily and hydralazine 10 mg twice daily was added as his lisinopril had been discontinued secondary to renal insufficiency. The hydralazine was later discontinued secondary to dizziness, fatigue, shakes. Patient states Since hydralazine was discontinued he is no longer having dizziness however continues with fatigue and weakness. Patient seen cardiology clinic 10/17/2018 and was noted to have a 4 pound weight gain from 10/01/2018. It was felt that he was having decompensated CHF And his Lasix was increased to 60 mg daily for 2 days followed by 40 mg daily, Toprol-XL was increased to 100 mg daily, amiodarone increased to 200 mg twice daily. He had device interrogation which showed A. fib RVR. Had chest x-ray which showed bilateral mild pleural effusions with bibasilar atelectasis.,Patient reports since he has been having less shortness of breath with exertion. He also reports prior to Lasix increase he was having PND which has since resolved. Patient reports he continues to have bilateral lower extremity weakness with ambulation and exertion. Denies CP. Also reports his been having cough "coughing up snot" for 3 months. Denies fever or chills. reports is noticed hearing patient wheezing intermittently, more at night. Patient reports chronic rhinorrhea and nasal congestion for at least one year and does not feel increased nasal congestion. He reports bilateral hip pain for over a year which improves throughout the day with movement. Denies any increased worsening, radiation pain, back pain, leg paresthesias, saddle paresthesias or loss control bowel or bladder. Denies diaphoresis, N/V/D/C, RICHARDS, syncope, vision changes, neck pain, palpitations, hemoptysis, sore throat, choking, otalgia, abdominal pain, extremity edema, rashes, urinary symptoms. H/O Echo 05/2017: EF: 20-25%, Severe concentric left ventricular hypertrophy, apical wall motion abnormality may reflect pacemaker activation, inferior wall akinesis, posterior wall akinesis, severe global hypokinesis of left ventricle. Mild aortic valve sclerosis without significant stenosis, mild aortic regurgitation, moderate mitral regurgitation Admission Exam Per Admitting Provider General: no distress, WDWN Head: normocephalic, atraumatic Eyes: PERRL, EOM's intact, conjunctiva non-injected, anicteric ENT: normal inspection external ears, nose, mucous membranes moist Neck: supple, trachea midline Lungs: no respiratory distress, faint rhonchi at bases CV: RRR, no murmur, no JVD, no pretibial edema Abd: normal BS, soft, non-tender Ext: no cyanosis, no calf tenderness, distal pulses palpable, strength 4-5/5 of bilateral legs tested while in bed Neuro: A&O x 3, no focal deficits noted, normal affect Skin: warm, dry Principal Diagnosis Nausea admission diagnosis of weakness possible pneumonia of left lower lobe small chronic left pleural effusion and a trace right pleural effusion supratherapeutic INR on admission. Ischemic cardiomyopathy, chronic. minimally elevated troponins of 0.059. Stage 4 chronic kidney disease. Other diagnosis Type 2 diabetes mellitus without complication with care home current use of insulin. Hypothyroidism on Levothyroxine Discharge Exam Constitutional WD/WN, vitals as above Eyes PERRL, conjunctivae normal, anicteric sclerae EOM intact bilaterally ENMT external ear and nose normal, oropharynx normal Neck trachea midline, no thyromegaly Respiratory normal respiratory effort, lungs clear to auscultation Cardiovascular RRR, no murmur, no edema Gastrointestinal (Abdomen) normal bowel sounds, soft, nontender, no hepatosplenomegaly Musculoskeletal no cyanosis or clubbing, extremities motor strength 5/5 Head/Neck/Chest: normocephalic and head atraumatic Neurologic PERRL, EOMI, accommodation nl, no face palsy, no dysarthria CN's II-XI intact bilaterally Psychiatric A+Ox3, euthymic affect Discharge Data Allergies Allergy/AdvReac Type Severity Reaction Status Date / Time amlodipine AdvReac Mild INSOMNIA Verified 10/20/18 10:57 Consultations 10/20/18 11:13 ED Decision to Admit Stat 10/20/18 13:19 Consult Cardiology Routine Consult Case Management - Discharge Planning Routine Hospital Course (1) Weakness: History of Present Illness "Pt is 83 y/o M with PMH ischemic cardiomyopathy with EF: 20-25%, CAD s/p CABG x 3, h/o VT, s/p pacer/defibrillator, Paroxysmal atrial fibrillation, CKD IV, DM II, HTN, HLD, TIA, hypothryoidism, gout presented to ER with c/o weakness. Patient with history increased shortness of breath with exertion, weakness, fatigue over the last couple months and has been following closely with cardiology. Was seen in cardiology clinic 10/01/2018 and his metoprolol XL was decreased from 100 mg to 50 mg daily and hydralazine 10 mg twice daily was added as his lisinopril had been discontinued secondary to renal insufficiency. The hydralazine was later discontinued secondary to dizziness, fatigue, shakes. Patient states Since hydralazine was discontinued he is no longer having dizziness however continues with fatigue and weakness. Patient seen cardiology clinic 10/17/2018 and was noted to have a 4 pound weight gain from 10/01/2018. It was felt that he was having decompensated CHF And his Lasix was increased to 60 mg daily for 2 days followed by 40 mg daily, Toprol-XL was increased to 100 mg daily, amiodarone increased to 200 mg twice daily. He had device interrogation which showed A. fib RVR. Had chest x-ray which showed bilateral mild pleural effusions with bibasilar atelectasis.,Patient reports since he has been having less shortness of breath with exertion. He also reports prior to Lasix increase he was having PND which has since resolved. Patient reports he continues to have bilateral lower extremity weakness with ambulation and exertion. Denies CP. Also reports his been having cough "coughing up snot" for 3 months. Denies fever or chills. reports is noticed hearing patient wheezing intermittently, more at night. Patient reports chronic rhinorrhea and nasal congestion for at least one year and does not feel increased nasal congestion. He reports bilateral hip pain for over a year which improves throughout the day with movement. Denies any increased worsening, radiation pain, back pain, leg paresthesias, saddle paresthesias or loss control bowel or bladder. Denies diaphoresis, N/V/D/C, RICHARDS, syncope, vision changes, neck pain, palpitations, hemoptysis, sore throat, choking, otalgia, abdominal pain, extremity edema, rashes, urinary symptoms." Diagnosis: Nausea admission diagnosis of weakness possible pneumonia of left lower lobe small chronic left pleural effusion and a trace right pleural effusion supratherapeutic INR on admission. Ischemic cardiomyopathy, chronic. minimally elevated troponins of 0.059. Stage 4 chronic kidney disease. Type 2 diabetes mellitus without complication with care home current use of insulin. Hypothyroidism on Levothyroxine -Patient seen and evaluated by hospitalist and re etcher and physical therapist/occupational therapist -Overall impression, that patient appears to have adequate functional status. despite complaints of weakness of the legs, patient has been able to ambulate on room air in the hospital without acute shortness of breath and without oxygen desaturation and with normal creatinine kinase. Patient has small chronic left pleural effusion and a trace right pleural effusion is breathing on room air and without respiratory distress. While there may be a possible pneumonia of left lower lobe as suggested by initial admitting hospitalist assessment for which patient was given ceftriaxone and doxycycline, patient likely has these effusions secondary to chronic Ischemic cardiomyopathy. There are minimally elevated troponins of 0.059 but this should also be seen in the context of patient's Stage 4 chronic kidney disease. Patient's initial admission INR was 3.7 and with coumadin held, the INR is 2.4. The target INR is between 2 to 3. -Patient should continue to take current home dose of coumadin and have INR check with next clinical visit to cardiology and primary care doctor. -Patient was evaluated in the hospital by Dr. Fisher and he recommended that patient continue outpatient cardiovascular medications including the aspirin, furosemide, isosorbide, metoprolol, and atorvastatin. -Dr. Fisher asked patient to take amiodarone 200 mg tablet as once a day rather than twice a day -Hospitalist to prescribed patient with antibiotic of Augmentin 500 mg BID twice a day for 7 days in case of a possible pneumonia of left lower lobe. Patient should have Chest X ray repeated by primary care doctor on next clinic visit. Blood cultures are pending -Patient should continue home dose diabetes medication and home dose thyroid medications (TSH of 1.6 is within normal limits) -Patient had abdominal cramping that resolved with Maalox and Carafate which relieved symptoms and abdomen X ray was negative; he had episode of small amount of watery emesis likely. Patient was given Reglan IV. Patient also has prescriptions for Reglan. Have asked patient if he would like to stay further until certain that nausea has resolved but patient would like to be discharged form the hospital. Patient's son also at bedside when discussed pros and cons of hospital discharge. Patient encouraged to come back to the hospital if more symptoms of nausea -Appointments 10/24/2018 12:30 PM Provider Artemio Gottlieb PA-C Department Cardiology, [facility] 10/24/2018 1:00 PM Provider Mundo Shah DO Department Interventional [facility], [facility] 10/24/2018 1:30 PM Provider [facility] Department Pharmacy, [facility] Primary Care Doctor 10/30/18 2:[address] Watt at [facility] Primary Care Doctor 11/09/18 10:[address] Watt at [facility] Total Time Total Time Spent Total Time Spent (In Minutes): 40 minutes Total Time Includes: Examination of the Patient, Discharge Planning, Medication Reconciliation and Communication With Other Providers Discharge Plan Discharge Items Patient Disposition: Home - Self-Care Reason For Visit: WEAKNESS/DYSPNEA Discharge Diagnosis: admission diagnosis of weakness. possible pneumonia of left lower lobe. small chronic left pleural effusion and a trace right pleural effusion. supratherapeutic INR on admission. Ischemic cardiomyopathy, chronic. minimally elevated troponins of 0.059. Stage 4 chronic kidney disease. Type 2 diabetes mellitus without complication with care home current use of insulin. Hypothyroidism on Levothyroxine, Nausea Condition: Good Discharge Goals: Improve function Activity: Resume your previous activity Non-emergency contact: Primary Care Provider and Commercial Real Estate Paralegal Call non-emergency contact if: you have any medication questions Follow-up/Referrals: Rogelio Watt DO [Primary Care Provider] - Diet: Carb Consistent or DM2 and Low Sodium (2gm) Addtl Provider Instructions: Patient seen and evaluated by hospitalist and re etcher and physical therapist/occupational therapist Overall impression, that patient appears to have adequate functional status. despite complaints of weakness of the legs, patient has been able to ambulate on room air in the hospital without acute shortness of breath and without oxygen desaturation and with normal creatinine kinase. Patient has small chronic left pleural effusion and a trace right pleural effusion is breathing on room air and without respiratory distress. While there may be a possible pneumonia of left lo wer lobe as suggested by initial admitting hospitalist assessment for which patient was given ceftriaxone and doxycycline, patient likely has these effusions secondary to chronic Ischemic cardiomyopathy. There are minimally elevated troponins of 0.059 but this should also be seen in the context of patient's Stage 4 chronic kidney disease. Patient's initial admission INR was 3.7 and with coumadin held, the INR is 2.4. The target INR is between 2 to 3. Patient should continue to take current home dose of coumadin and have INR check with next clinical visit to cardiology and primary care doctor. Patient was evaluated in the hospital by Dr. Fisher and he recommended that patient continue outpatient cardiovascular medications including the aspirin, furosemide, isosorbide, metoprolol, and atorvastatin. Dr. Fisher asked patient to take amiodarone 200 mg tablet as once a day rather than twice a day Hospitalist to prescribed patient with antibiotic of Augmentin 500 mg BID twice a day for 7 days in case of a possible pneumonia of left lower lobe. Patient should have Chest X ray repeated by primary care doctor on next clinic visit. Blood cultures are pending Patient should continue home dose diabetes medication and home dose thyroid medications (TSH of 1.6 is within normal limits) Patient had abdominal cramping that resolved with Maalox and Carafate which relieved symptoms and abdomen X ray was negative; he had episode of small amount of watery emesis likely. Patient was given Reglan IV. Patient also has prescriptions for Reglan. Have asked patient if he would like to stay further until certain that nausea has resolved but patient would like to be discharged form the hospital. Patient's son also at bedside when discussed pros and cons of hospital discharge. Patient encouraged to come back to the hospital if more symptoms of nausea Appointments 10/24/2018 12:30 PM Provider Artemio Gottlieb PA-C Department Cardiology, [facility] 10/24/2018 1:00 PM Provider Mundo Shah DO Department Interventional Pain Center, [facility] 10/24/2018 1:30 PM Provider [facility], [facility] Primary Care Doctor 10/30/18 2:[address] Watt at [facility] Primary Care Doctor 11/09/18 10:[address] Watt at [facility] Prescriptions: New amiodarone 200 mg Tablet 200 mg PO DAILY 30 Days Qty: 30 RF: 0 amoxicillin-pot clavulanate 500-125 mg Tablet 1 tab PO BIDM 7 Days Qty: 14 RF: 0 metoclopramide HCl 5 mg Tablet 5 mg PO Q8H PRN (Reason: nausea and vomiting) 5 Days Qty: 15 RF: 0 Continued atorvastatin 80 mg Tablet 80 mg PO PM RF: 0 isosorbide mononitrate 30 mg Tablet Extended Release 24 Hr 30 mg PO QAM RF: 0 metoprolol succinate 100 mg Tablet Extended Release 24 Hr 100 mg PO QAM RF: 0 gabapentin 400 mg Capsule 400 mg PO HS RF: 0 allopurinol 100 mg Tablet 100 mg PO BID RF: 0 aspirin 81 mg Tablet,Delayed Release (Dr/Ec) 81 mg PO DAILY RF: 0 cyanocobalamin (vitamin B-12) 500 mcg Tablet 1,500 mcg PO QAM RF: 0 gemfibrozil 600 mg Tablet 600 mg PO BID RF: 0 levothyroxine 125 mcg Tablet 125 mcg PO DAILY@0600 RF: 0 warfarin 2 mg Tablet 2 mg PO DAILY@1600 RF: 0 furosemide 20 mg Tablet 40 mg PO QAM RF: 0 Lantus Solostar U-100 Insulin 100 unit/mL (3 mL) Insulin Pen 10 unit SUBCUT QAM RF: 0 Discontinued amiodarone 200 mg Tablet 200 mg PO BID RF: 0 Stand-Alone Forms: [facility] Discharge Orders: Discharge Order (Routine); Ordered 10/21/18 Ordered By: Wyatt Yap Admission Data Admit Date/Time: 10/20/18 11:58 Attending Provider: Wyatt Yap Admit Provider: Eleni Zhu Primary Care Provider: Rogelio Watt Other Providers: Eleni Zhu ; Robi Fisher Service: Telemetry
[2018-10-21] MEDS ORDERED: AMOXICILLIN/CLAVULANATE 500 MG TAB PO SCH (17:00)
[2018-10-22 06:45] LABS: Estimated Average Glucose 157 mg/dl; Hemoglobin A1C 7.1 % (4.5-5.6)
[2018-10-22] MEDS ORDERED: AMIODARONE 200 MG TAB PO SCH (09:00)
== END 2018-10-21 12:03 | disposition home or self-care (01) | DRG 194 ==
LOC: ED 09:11 → SUATTDRO 11:58 → 2E 11:58

== ENCOUNTER 2018-12-19 06:33 | Observation (INO) ==
[~2018-12-19 06:33] MED LIST changes: -ALL300 PO; -AMIO200T4 PO; -ASPI81TA28 PO; -ATOR80TA PO; +CEFAZOLIN 2000MG 2,000 MG/15 ML SYR IV SCH; -CHOL100027 PO; -CYAN500T SL; -DUTA0.5C PO; -FURO-85 PO; -GABA400C PO; -GEMF600T5 PO; -INSDGIPEN SC; -ISOS30TA3 PO; +LACTATED RINGER'S 1,000 ML IV SCH; -LEVO125T5 PO; -LISI-730 PO; -METO100T44 PO; -NTRGSL/4 UT; -PHEN-876 PO; -WARF4TAB43 PO
[2018-12-19] MEDS ORDERED: LIDOCAINE HCL 1% 20 ML VIAL ONE (07:36)
[2018-12-19] MEDS ORDERED: BUPIVACAINE 0.25% 30 ML VIAL ONE (07:37)
[2018-12-19] MEDS ORDERED: BACITRACIN INJ 50,000 UNIT VIAL ONE (07:37)
[2018-12-19] MEDS ORDERED: MIDAZOLAM HCL 5 MG/ML 1 ML VIAL ONE (07:43)
[2018-12-19] MEDS ORDERED: fentaNYL citrate 100 MCG/2 ML VIAL ONE ×2 (07:43→10:11)
--- NOTE | 2018-12-19 08:34 | Pre Anesthesia Assessment ---
Date of Service December 19, 2018 Pre Sedation Assessment Vital Signs Temp Pulse Resp BP Pulse Ox 12/19/18 07:09 36.7 C 65 18 143/87 H 90 Cardiovascular + regular rate Respiratory normal respiratory effort, lungs clear to auscultation Pre-Sedation Airway Assessment Smoking Status: Never smoker Hx Sleep Apnea: Yes Hx Difficult Intubation: No Short, Thick Neck: Yes Thyromental Distance: < 3.5 Finger Breadths Oral Cavity: + Dental Abnormalities Mallampati Class: III ASA: ASA3 NPO Status Date of Last Intake of Fluids: 12/18/18 Date of Last Intake of Solid Food: 12/18/18 Procedure Planning Contraindications for Sedation: none Current Medications Reviewed: Yes Notes The planned sedation has been discussed with the patient. Informed Consent was o btained. I have identified the patient, determined the appropriateness of sedation and have assessed the patient immediately prior to the procedure. All medicine(s) and interventions are by my order.
--- NOTE | 2018-12-19 08:34 | History & Physical Bridge Note ---
Date of Service December 19, 2018 History & Physical Bridge Note I have examined the patient, reviewed the History & Physical and in the interval since the performance of the History & Physical I have noted the following changes of clinical significance: no changes noted
[2018-12-19] MEDS ORDERED: MIDAZOLAM HCL 1 MG/ML 2ML VIAL ONE (10:51)
[2018-12-19] MEDS ORDERED: FUROSEMIDE 40 MG/4 ML VIAL IV ONE (11:39)
--- NOTE | 2018-12-19 11:58 | Post Anesthesia Assessment ---
Date of Service December 19, 2018 Post Sedation Assessment Vital Signs Temp Pulse Resp BP Pulse Ox 12/19/18 07:09 36.7 C 65 18 143/87 H 90 Recovery Score Activity: Moves 4 extremities Respiration: Deep Breath/Cough Circulation: +/-20% PreAnes Value Consciousness: Fully Awake Oxygen Saturation: > 92% On Room Air Discharge Sedation Level of Care: Fast Track Phase II Post Sedation Plan On clinical assessment, the patient appears to have tolerated the sedation without complications. Patient is recovering as anticipated. Patient will continue to be monitored by nursing and may be discharged when sedation discharge criteria are met per below protocol. Upon Completions of procedure and additional 15 minutes continue every 5 minute vital signs and the P.A.R. score; then discharge to a Phase I or Fast Track to [facility] II per the following guidelines: * Discharge Patient to appropriate Phase II area if PAR is 8 or greater or return to pre- procedure baseline. The post - procedure orders will be as directed. * If PAR score is less than 8 or not return to pre-procedure baseline then patient will follow Phase I monitoring till PAR is reached for Phase II. The Phase I may be done in procedure room or may call to secure a Phase I area. * If naloxone or flumazenil are used for reversal, hold in Phase I for continued monitoring from when last reversal dose was given for a minimum of 60 minutes or longer pending the nurse and/or physician discretion of patient condition before discharge to Phase II. Please call the Sedation Physician to re-evaluate and complete post-note for discharge to Phase II area. Do NOT discharge from procedure sedation or Phase 1 until post- sedation evaluation note is complete by procedure /sedation MD Sedation Discharge Instructions to be given to the patient at discharge to home.
--- NOTE | 2018-12-19 11:58 | Operative Report ---
Post Operative Report Pre & Post Diagnosis Pre: ICM, Chronic systolic HF-NYHA Class III, CHB with 100% RV pacing Post Same Operation Date: 12/19/18 08:00 <No data on this case meets the specified criteria> Procedure Operation Date: 12/19/18 08:00 Actual Procedures p Upgrade of any system to BIV - Tricia Basurto DO s ICD Gen Change Multiple - Tricia Basurto DO Surgeon Tricia Basurto, Supervisor Wet Pour none Estimated Blood Loss 35 Findings Consistent with Post-Op Diagnosis Specimens none Description of Procedure see official report I attest to the content of the Intraoperative Record and any orders documented therein. Any exceptions are noted below.
[2018-12-19] MEDS ORDERED: ACETAMINOPHEN 325 MG TAB PO PRN (11:59)
[2018-12-19] MEDS ORDERED: OXYCODONE/ACETAMINOPHEN 5mg/325mg TAB PO PRN (11:59)
--- NOTE | 2018-12-19 12:13 | Discharge Summary ---
Date of Service December 19, 2018 Admission HPI Per Admitting Provider Pt admitted for elective upgrade to BiV ICD due to ICM, chronic systolic HF-NYHA Class III, and CHB with 100% RV pacing. He underwent procedure without any complications; monitored overnight and discharged home. Admission Exam Per Admitting Provider aaox3, NAD NC/AT, EOMI Supple No JVD Nrl S1/S2, No murmur CTA b/l no w/r/r soft nt/nd no LE edema b/l skin intact no focal deficits Principal Diagnosis 1. ICM s/p upgrade to a BiV ICD 2. CHB with 100% RV pacing 3. Chronic systolid HF, NYHA Class III Discharge Exam aaox3, NAD NC/AT, EOMI Supple No JVD Nrl S1/S2, No murmur CTA b/l no w/r/r soft nt/nd no LE edema b/l skin intact no focal deficits left pectoral incision intact, no hematoma mild ecchymosis ENMT Mallampati Class: III Respiratory normal respiratory effort, lungs clear to auscultation Cardiovascular Rate/Rhythm: regular rate Discharge Data Allergies Allergy/AdvReac Type Severity Reaction Status Date / Time amlodipine AdvReac Mild INSOMNIA Verified 12/19/18 07:07 Procedures Performed Operation Date: 12/19/18 08:00 Actual Procedures p Upgrade of any system to BIV - Tricia Basurto DO s ICD Gen Change Multiple - Tricia Basurto DO Ordered Studies CXR: No PTX ECG: BiV paced BiV ICD Interrogation: Normal function and stable LV lead testing from implant 12/19/18 07:15 EP Lab Images for PACS ONCE Hospital Course (1) CHB (complete heart block): Total Time Total Time Spent Total Time Spent (In Minutes): 30 Total Time Includes: Examination of the Patient, Discharge Planning, Medication Reconciliation and Other Discharge Plan Discharge Items Patient Disposition: Home - Self-Care Reason For Visit: COMPLETE HEART BLOCK, BIV ICD Discharge Diagnosis: CHB, ICM s/p upgrade to BIV ICD Condition: Good Discharge Goals: Improve function Activity: As commented below Activity Comment: do not lift the left elbow over the left shoulder for 1 month Lifting: No more than 10 pounds Lifting Comment: do not lift more than 10 pounds with the left arm for 2 weeks Bathing: Keep incision dry Bathing Comment: keep incision dry for at least 3 days Driving/Machine Use: Resume 1 day after discharge Non-emergency contact: Computer Programmer Call non-emergency contact if: you have any medication questions Follow-up/Referrals: Rogelio Watt, [Primary Care Provider] - Diet: Heart Healthy and Low Sodium (2gm) Addtl Provider Instructions: keep pressure dressing on for at least 3 days-the longer the better If you notice any swelling or concerns about the incision call my office immediately Device and wound check as scheduled Thursday 12/28 Prescriptions: Continued atorvastatin 80 mg Tablet 80 mg PO PM RF: 0 isosorbide mononitrate 30 mg Tablet Extended Release 24 Hr 60 mg PO QAM RF: 0 metoprolol succinate 100 mg Tablet Extended Release 24 Hr 100 mg PO QAM RF: 0 gabapentin 400 mg Capsule 400 mg PO HS RF: 0 allopurinol 100 mg Tablet 200 mg PO DAILY RF: 0 aspirin 81 mg Tablet,Delayed Release (Dr/Ec) 81 mg PO DAILY RF: 0 cyanocobalamin (vitamin B-12) 500 mcg Tablet 1,500 mcg PO QAM RF: 0 levothyroxine 125 mcg Tablet 125 mcg PO DAILY@0600 RF: 0 warfarin 2 mg Tablet 4 mg PO UD RF: 0 furosemide 20 mg Tablet 60 mg PO QAM RF: 0 Lantus Solostar U-100 Insulin 100 unit/mL (3 mL) Insulin Pen 9 unit SUBCUT QAM RF: 0 amiodarone 200 mg Tablet 200 mg PO DAILY RF: 0 Vitamin D3 4,000 unit Capsule 4,000 unit PO DAILY RF: 0 Stand-Alone Forms: [facility] Discharge Orders: Discharge Order (Routine); Ordered 12/20/18 Ordered By: Tricia Basurto Admission Data Admit Date/Time: 12/19/18 11:59 Attending Provider: Tricia Basurto Admit Provider: Tricia Basurto Primary Care Provider: Rogelio Wtat Service: Telemetry
[2018-12-19] MEDS ORDERED: CARBOHYDRATES FOR HYPOGLYCEMIA PO PRN (13:00)
[2018-12-19] MEDS ORDERED: GLUCAGON FOR INJ 1 MG VIAL IM PRN (13:00)
[2018-12-19] MEDS ORDERED: GLUCOSE 10 TABS/TUBE PO PRN (13:00)
[2018-12-19] MEDS ORDERED: DEXTROSE 50% 50 ML SYRINGE IV PRN (13:00)
[2018-12-19] MEDS ORDERED: GLUCOSE 40% GEL 15 GM TUBE PO PRN (13:00)
--- NOTE | 2018-12-19 14:25 | Operative Report ---
DATE OF OPERATION: 12/19/2018 PREOPERATIVE DIAGNOSES: Ischemic cardiomyopathy, 100% RV pacing secondary to complete heart block, chronic systolic heart failure, [place] Heart Association class 3. POSTOPERATIVE DIAGNOSES: Ischemic cardiomyopathy, 100% RV pacing secondary to complete heart block, chronic systolic heart failure, [place] Heart Association class 3. PROCEDURE: Upgrade from a dual chamber implantable cardiac defibrillator to a biventricular rate responsive implantable cardiac defibrillator along with a venogram of the coronary sinus. SURGEON: Tricia Basurto DO ASSISTANTS: None. ANESTHESIA: Monitored conscious sedation administered under my supervision by Liberty Ovalle. Start time 08:58 and end time 11:43. A total of 6 mg of Versed, 175 mcg of fentanyl. INTRAVENOUS FLUIDS: 60 mL. INTRAVENOUS CONTRAST: 10 mL. ANTIBIOTICS: Two grams of Ancef. BLOOD LOSS: 35 mL. URINE OUTPUT: Not applicable. SPECIMENS: None. FINDINGS: See below. DRAINS: None. INDICATIONS: This is an 83-year-old gentleman with past medical history for ischemic cardiomyopathy and coronary artery disease. He underwent a CABG in 1996 with a RUSS to LAD, SVG to ramus intermedius and SVG to OM. His ejection fraction is 20-25%. He has a history of an ICD with generator change in February 2014. His DFTs at the time of generator change were 20 joules. 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 Due to his worsening heart failure, his 100% RV pacing, and ischemic cardiomyopathy, he was recommended an upgrade from a dual chamber defibrillator to a biventricular defibrillator. CONSENT: Consent was obtained prior to the patient going into electrophysiology lab. The patient was informed of the risks, benefits and alternative procedure. Risks include but not limited to sudden cardiac , cardiac arrhythmias, cerebrovascular accident, myocardial infarction, injury to the blood vessels, chamber of the heart, lung, bleeding, and infection. The patient understood these risks and agreed to the procedure as planned. Informed consent was obtained. DESCRIPTION OF THE PROCEDURE: The patient was brought into the electrophysiology lab in a fasting state. He was connected to continuous road boss. A timeout was performed to ensure patient identity and procedure correctly. The patient was prepped and draped over the left infraclavicular space in normal surgical standard fashion. Monitored conscious sedation was given throughout the procedure for patient's comfort level. He received prophylactic antibiotics prior to incision. [place] precautions were maintained throughout the procedure. A 20 mL of 1% lidocaine, bupivacaine mixture were given in the left deltopectoral groove. Incision was made in the left deltopectoral groove. Blunt dissection was performed down to identify the cephalic vein. The cephalic was identified and isolated using 0 silk ties. It was nicked with an 11 blade and a guidewire was inserted without any resistance. Actually, I had to use a Glidewire to get down through the right underneath the clavicle without any resistance. Then, a 9.5-Finnish sheath was inserted over the guidewire without any resistance. The guidewire and dilator removed. The MPX Medtronic outer coronary sinus sheath was then advanced into the right atrium over the guidewire and then the guidewire and dilator were removed. Then, the EP diagnostic Decapolar catheter was used to cannulate the coronary sinus and I was able to run the MPX outer coronary sinus sheath over this into the coronary sinus. I did even need a balloon because when I gave a puff to make sure that I was in the coronary sinus, I was right at a nice posterolateral branch. I then was able to run a Whisper wire out into this branch. Because there was an acute angle at the coronary sinus os, I used an inner 90 over this wire out into the branch. Then, I ran. Initially, I tried using the new Medtronic fixated coronary sinus lead over this wire, but never was able to get it really fixated to the vein tissue, so I ultimately used the S-shaped coronary sinus wire over the Whisper. Then, the inner sheath was slit under fluoroscopic guidance followed by the outer coronary sinus sheath followed then by the 9.5-Finnish sheath was peeled away. There was adequate pacing and sensing thresholds and no diaphragmatic stimulation with high output pacing. The lead was then fixated to pectoralis muscle using 0 silk suture. I then continued with further blunt dissection to get to the prior defibrillator and break it up from all the capsular scar. I then checked the old right atrial and right ventricular leads intraoperatively, see below for results. Then, the new leads were all attached to the new defibrillator making sure that the pins were in appropriate position, passed set screw and set screws were all tightened. Defibrillator was then placed in the pocket, making sure that the leads were lying flat beneath the device. Prior to being placed in the pocket, I did place in an antibiotic Tyrx pouch. I did put Halle stat in the pocket as patient is going to go back on Coumadin and the incision was then closed in 3-layer fashion with 2-0 Vicryl interrupted suture followed by 3-0 Vicryl interrupted suture followed by 4-0 Monocryl running stitch and Dermabond was applied followed then by a pressure dressing. EQUIPMENT: 1. Explanted generator is an Avara XT model [id number], serial number [id number], implanted 11/11/2014. 2. The new generator is a [employer] Quad MANAGER STYLIST-D SureScan [id number], serial number [id number]. 3. Right atrial lead is model number 5076-52 cm, serial number [id number], implanted 03/11/2004. 4. The right ventricular lead model [id number] cm, serial number [id number], implanted 03/11/2004. 5. Left ventricular lead, [employer]tronic 4598-88 cm, serial number [id number]. INTRAOPERATIVE TESTIN. Right atrial lead: P-wave 2.7 millivolts, impedance 531 ohms, threshold 0.6 volts at 0.5 milliseconds. 2. Right ventricular lead: R waves are none, impedance 600 millivolts, threshold 1 volt at 0.5 milliseconds. 3. Left ventricular lead programmed LV2 to LV3, impedance 558 ohms, threshold 1.9 volts at 1 millisecond. FINAL MEASUREMENTS THROUGH THE DEVICE: 1. Right atrial lead: P waves 1.1 millivolts, impedance 456 ohms, threshold 0.75 volts at 0.4 milliseconds. 2. Right ventricular lead: No R-waves, impedance 532 ohms, threshold 1.25 volts at 0.4 milliseconds. 3. Left ventricular lead programmed LV4-LV2, impedance 722 ohms, threshold 1.5 volts at 1 millisecond. RV coil is 49 ohms, SVC coil 59 ohms. FINAL PARAMETERS: DDDR 60/130, right atrial amplitude 1.5 volts, pulse width 0.4 milliseconds, sensitivity 0.3 millivolts. Right ventricular amplitude 1.5 volts, pulse width 0.4 milliseconds, sensitivity 0.3 millivolts. Left ventricular amplitude 4 volts, pulse width 1 millisecond. A VT monitor zone at 140 beats per minute for 20 detection intervals, VT zone 176 beats per minute for 12 detection intervals and a VF zone at 214 beats per minute for 12/16 detection intervals. IMPRESSION: Successful upgrade to a biventricular rate responsive implantable cardiac defibrillator under fluoroscopic guidance along with a coronary sinus venogram. PLAN: Monitor patient overnight, 12-lead ECG, chest x-ray. We did do a limited echo because he had some shortness of breath at the end of the procedure, but I think this was because we put him in some heart failure at the end when I switched him over to VOO pacing when I was connecting the leads. He did get IV Lasix at the end of the procedure and was feeling much better when he set up. The echo did not show any effusion. We will give him 2 grams of postop Ancef. He is to wear the pressure dressing for at least 3 days or longer if he can. He can shower and let water run over incision in 2 days. He will follow up in our [facility] office for device and wound check on Monday12/28/2018. He is not allowed to lift left elbow or left shoulder for 1 month. He cannot lift more than 10 pounds with the left arm for 2 weeks and we will continue his home medications and he should continue to follow up with general cardiology. I attest to the content of the Intraoperative Record and any orders documented therein. Any exception s are noted below.
[2018-12-19] MEDS ORDERED: WARFARIN SOD 4 MG TAB PO SCH ×2 (16:00)
[2018-12-19] MEDS ORDERED: CEFAZOLIN 2000MG 2,000 MG/15 ML SYR IV ONE (17:00)
[2018-12-19] MEDS ORDERED: GABAPENTIN 400 MG CAP PO SCH (21:00)
[2018-12-19] MEDS ORDERED: ATORVASTATIN 40 MG TAB PO SCH (21:00)
[2018-12-20] MEDS ORDERED: LEVOTHYROXINE SODIUM 125 MCG TABLET PO SCH (06:00)
[2018-12-20] MEDS ORDERED: INSULIN GLARGINE SOLOSTAR 100 UNITS/ML 3 ML PEN SQ SCH (09:00)
[2018-12-20] MEDS ORDERED: AMIODARONE 200 MG TAB PO SCH (09:00)
[2018-12-20] MEDS ORDERED: ISOSORBIDE MONO EXTENDED REL 60 MG TABCR PO SCH (09:00)
[2018-12-20] MEDS ORDERED: ALLOPURINOL 100 MG TAB PO SCH (09:00)
[2018-12-20] MEDS ORDERED: CYANOCOBALAMIN 500 MCG TABLET (VITAMIN B-12) PO SCH (09:00)
[2018-12-20] MEDS ORDERED: ASPIRIN 81 MG ECTAB PO SCH (09:00)
[2018-12-20] MEDS ORDERED: FUROSEMIDE 20 MG TAB PO SCH (09:00)
[2018-12-20] MEDS ORDERED: METOPROLOL SUCC 50MG EXT REL TAB PO SCH (09:00)
[2018-12-20] MEDS ORDERED: CHOLECALCIFEROL 1,000 UNITS TAB PO SCH (09:00)
[2018-12-20] MEDS ORDERED: WARFARIN SOD 2 MG TAB PO SCH (16:00)
== END 2018-12-20 10:24 | disposition home or self-care (01) ==
LOC: 2S 06:33 → ASU 06:33

== ENCOUNTER 2021-07-22 11:08 | Inpatient (IN) ==
--- NOTE | 2021-07-22 11:11 | Emergency Department Note ---
Impression & Plan Syncope, CKD (chronic kidney disease) stage 4, GFR 15-29 ml/min, Transaminitis, CHI (closed head injury), Hx of CABG, CAD (coronary artery disease) ED Provider Note NAME: TEO DUMONT AGE: 86 SEX: M : 1935 ARRIVES VIA: Ambulance INFORMANT: Patient, ED PROVIDER(S): Ken Quiles MD Chief Complaint: Fall HPI: Patient presents due to concern for fall which occurred at breaking just prior to arrival. The patient states the recollection of the events is somewhat hazy. The patient denies any fevers chills chest pain shortness of breath nausea or vomiting. The patient had been recently started on some steroids and had some elevated BSG's last several days in the 500s but they did make a recent insulin adjustment. The patient states that he was having some sputum with mild cough. Patient did not complain of any head pain or neck pain. The patient reportedly had some repetitive speech after this occurred. The patient does believe that he struck his head but denies any headache. Patient states he does not take blood thinners but a baby aspirin. Patient states he was taken off his blood thinners. Patient denies any back pain abdominal pain or extremity pain. BSG prior to arrival was in the 200s. ROS: See HPI for pertinent positives and negatives. A total of 10 systems were reviewed and otherwise negative. Past medical history: See below Surgical history: See below Social history: See below Physical Exam: GENERAL: NAD, wearing glasses, wearing a mask, non-toxic. EYE EXAM: Normal conjunctiva. PERRL, no anisocoria and EOM's grossly intact w/o pain. OROPHARYNX: Moist mucus membranes. Grossly normal dentition. NECK: Supple, no nuchal rigidity, no adenopathy, non-tender. No signs of meningismus. No midline C-spine TTP. Chest: Well-healed midline incisional scar and device in left chest. LUNGS: Clear to auscultation. Normal chest wall mechanics. HEART: NSR, no MRG. ABDOMEN: Abdomen soft, non-tender, normo-active bowel sounds, no masses, no rebound or guarding. BACK: No CVA TTP. SKIN: No rashes and no bruising. UPPER EXTREMITIES: Upper extremities are grossly normal. LOWER EXTREMITIES: Grossly normal, no edema. NEURO EXAM: A&O x3, cranial nerves II-XII grossly intact, normal speech, moves all 4 extremities on command w/o issue. Good finger to nose, no drift, no sensory deficits. Differential diagnoses: Vasovagal event, dehydration, infection, hypoglycemia, e lectrolyte abnormalities, cardiac sources, intracerebral event, pulmonary embolism, seizure, toxicologic, neurologic, as well as other pathologies. Course: Patient was seen and evaluated the bedside. Full history physical exam was performed. EKG interpreted by me Paced rhythm, rate of 75, wide QRS, left axis deviation, Q waves throughout, T wave inversion with mild depression in V2, no obvious sgarbossa criteria. Imaging Studies: See Below Cardiac monitoring: An order was placed for continuous cardiac monitoring. The monitor shows a rate of 77 with pacedrhythm. MDM: Patient was seen due to concern for a possible syncopal event status post fall. Blood work was obtained along with a CT of the head and cervical spine. Pacemaker defibrillator was attempted to be interrogated. Patient denies any shocks at the time of this event. Blood work shows normal white count with mild anemia but virtually normal hemoglobin at 13.9. Mild thrombocytopenia at 109. Kidney function a virtual baseline with a creatinine 2.9. The patient does have transaminitis and positive troponin to 0.13. Patient currently denies any chest pains or shortness of breath. The patient does not have any obvious sgarbossa criteria seen on his EKG. Patient has negative CT of the head and cervical spine. Chest x-ray shows cardiomegaly but no acute findings. Patient was noted to have a transaminitis but the patient denies any right upper quadrant pain. A gallbladder ultrasound was obtained. I did speak with the on-call hospitalist Jannet Carolina PA-C and the patient was admitted by Dr. Beckham. Ultrasound shows no evidence of gallstones or biliary ductal dilatation. Past Med/Surg History Medical History Anemia Benign prostatic hyperplasia with urinary obstruction BPH (benign prostatic hyperplasia) CAD (coronary artery disease) s/p CABG x3 (1996) Diabetes DM type 2 (diabetes mellitus, type 2) Gout Gout Hearing deficit High cholesterol History of atrial fibrillation PAF HTN (hypertension) Hyperlipidemia Hypothyroidism ICD (implantable cardioverter-defibrillator) battery depletion Implanted (2003); Generator change (2009), BiV ICD update Ischemic cardiomyopathy PPM upgraded to BiV ICD Obesity Osteoarthritis Stage 4 chronic kidney disease Baseline creatinine 2.4-2.8 range per records Systolic heart failure Transient ischemic attack (TIA) 2014 Urinary urgency V tach Hx Surgical History History of cardiac cath History of colonoscopy History of eye surgery History of implantable cardiac defibrillator (ICD) History of tonsillectomy History of tooth extraction History of transurethral resection of prostate TURP (02/20/18): LMA#4 (iGel) at [facility] Hx of CABG CABG x3 (1996)- RUSS-LAD, SVG-RAMUS, SVG TO OM1 Hx of transurethral resection of prostate ICD (implantable cardioverter-defibrillator) in place Implanted (2003); Generator change (2009) Family History Brother Prostate cancer Diabetes Coronary heart disease Mother Diabetes Stroke Coronary heart disease Father Stroke Social History Smoking Status: Never smoker Second Hand Exposure: Yes (USED TO BE AT WORK (RETIRED 1996)); Hx Alcohol Use: No Hx Substance Use: No Preferred Language: Citizen Of [place] Communication Ability: Effective 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 Beliefs That Will Affect Care: None Current Living Situation: Spouse Other Information That Helps Us Care for You: No Feels Safe at Home: Yes Safety Concerns: Feels Safe At This Time Assistive Devices: None Allergies Allergies Allergy/AdvReac Type Severity Reaction Status Date / Time amlodipine AdvReac Mild INSOMNIA Verified 07/22/21 12:28 Novocain SOLN Allergy Fever Uncoded 07/22/21 12:28 Home Meds Home Medications Medication Instructions Recorded Confirmed allopurinol 100 mg tablet 200 mg PO DAILY 10/20/18 07/22/21 aspirin 81 mg tablet,delayed 81 mg PO UD 10/20/18 07/22/21 release atorvastatin 80 mg tablet 80 mg PO PM 10/20/18 07/22/21 cyanocobalamin (vitamin B-12) 500 1,500 mcg PO QAM 10/20/18 07/22/21 mcg tablet furosemide 20 mg tablet 80 mg PO MONTHUR 10/20/18 07/22/21 gabapentin 400 mg capsule 400 mg PO HS 10/20/18 07/22/21 insulin glargine 100 unit/mL (3 14 unit SUBCUT [facility] 10/20/18 07/22/21 mL) subcutaneous pen (Lantus Solostar U-100 Insulin) isosorbide mononitrate 30 mg 60 mg PO QA 10/20/18 07/22/21 tablet,extended release 24 hr levothyroxine 125 mcg tablet 125 mcg PO DAILY@0600 10/20/18 07/22/21 metoprolol succinate 100 mg 100 mg PO QAM 10/20/18 07/22/21 tablet,extended release 24 hr amiodarone 200 mg tablet 200 mg PO DAILY 12/19/18 07/22/21 furosemide 20 mg tablet 40 mg PO 5XWK 05/03/19 07/22/21 prednisone 10 mg tablet 10 mg PO TID 07/22/21 07/22/21 repaglinide 1 mg tablet 0 mg PO TID 07/22/21 07/22/21 sitagliptin 25 mg tablet (Januvia) 25 mg PO DAILY 07/22/21 07/22/21 Results & Data (ED) Vital Signs Vital Signs - 24 hr 07/22/21 10:59 07/22/21 11:15 07/22/21 11:30 Temperature 36.7 C Temperature Source Oral Pulse Rate 60 75 60 Pulse Rate [Apical] Pulse Rate from SpO2 Sensor 73 60 Pulse Rhythm Regular Pulse Rhythm [Apical] Pulse Strength Normal Respiratory Rate 16 12 21 Respiratory Effort / Characteristics Non-Labored Respiratory Depth Normal Blood Pressure 136/72 136/72 Blood Pressure [Left Arm] Blood Pressure Mean 93 93 Blood Pressure Mean [Left Arm] Pulse Oximetry 97 98 97 Oxygen Delivery Method Room Air Sepsis Recent Fever Within 48 Hours No Sepsis New/Unexplained Change in Mental Status N/A Sepsis Action Taken by Nursing No Action Required 07/22/21 12:00 07/22/21 12:33 07/22/21 13:00 Temperature Temperature Source Pulse Rate 60 62 61 Pulse Rate [Apical] Pulse Rate from SpO2 Sensor 60 62 Pulse Rhythm Pulse Rhythm [Apical] Pulse Strength Respiratory Rate 18 18 19 Respiratory Effort / Characteristics Respiratory Depth Blood Pressure 101/63 133/61 115/65 Blood Pressure [Left Arm] Blood Pressure Mean 75 85 81 Blood Pressure Mean [Left Arm] Pulse Oximetry 93 96 Oxygen Delivery Method Sepsis Recent Fever Within 48 Hours Sepsis New/Unexplained Change in Mental Status Sepsis Action Taken by Nursing 07/22/21 13:30 07/22/21 14:59 Temperature Temperature Source Pulse Rate 60 Pulse Rate [Apical] 60 Pulse Rate from SpO2 Sensor Pulse Rhythm Pulse Rhythm [Apical] Regular Pulse Strength Respiratory Rate 18 16 Respiratory Effort / Characteristics Non-Labored Respiratory Depth Normal Blood Pressure 116/67 Blood Pressure [Left Arm] 117/68 Blood Pressure Mean 83 Blood Pressure Mean [Left Arm] 84 Pulse Oximetry 98 Oxygen Delivery Method Room Air Sepsis Recent Fever Within 48 Hours Sepsis New/Unexplained Change in Mental Status Sepsis Action Taken by Jail Medications Current Medication List: was personally reviewed by me Laboratory Data Attestation: I reviewed the patient's lab results. Result diagrams: 07/22/21 12:20 07/22/21 12:20 Lab Results 07/22/21 07/22/21 07/22/21 Range/Units 12:20 12:20 12:20 WBC 10.42 (4.8-10.8) K/uL RBC 4.03 L (4.7-6.1) M/uL Hgb 13.9 L (14.0-18.0) g/dL Hct 39.7 L (42-52) % MCV 98.5 (80-100) fL MCH 34.5 H (25-34) pg MCHC 35.0 (32-36) g/dL RDW Std Deviation 53.8 H (36.4-46.3) fL RDW Coeff of [place] 14.9 H (11.5-14.5) % Plt Count 109 L (130-400) K/uL MPV 11.9 H (7.4-10.4) fL Immature Gran % (Auto) 0.4 % Neut % (Auto) 76.9 % Lymph % (Auto) 15.3 % [place] % (Auto) 7.2 % Eos % (Auto) 0.1 % Baso % (Auto) 0.1 % Neut # (Auto) 8.02 H (1.4-6.5) K/uL Lymph # (Auto) 1.59 (1.2-3.4) K/uL [place] # (Auto) 0.75 H (0.11-0.59) K/uL Eos # (Auto) 0.01 (0-0.5) K/uL Baso # (Auto) 0.01 (0-0.2) K/uL Immature Gran # (Auto) 0.04 H (0.00-0.02) K/uL PT 10.8 (9.0-12.0) Seconds INR 1.0 (0.9-1.1) Sodium 137 (136-145) mmol/L Potassium 4.8 (3.5-5.1) mmol/L Chloride 104 (98-107) mmol/L Carbon Dioxide 23 (21-32) mmol/L Anion Gap 10 (3-11) BUN 82 H (6-23) mg/dl Creatinine 2.93 H (0.6-1.4) mg/dl Est Cr Clr Drug Dosing 21.4 ml/min Est GFR ( Amer) 21.7 ml/min Est GFR (Non-Af Amer) 18.8 ml/min BUN/Creatinine Ratio 28.0 H (10-20) Glucose 216 H (70-99(Fasting)) mg/dl Calcium 8.8 (8.5-10.1) mg/dl Phosphorus 3.7 (2.5-4.9) mg/dl Magnesium 2.5 H (1.7-2.4) mg/dl Total Bilirubin 1.8 H (0.2-1.0) mg/dl AST 55 H (13-39) U/L ALT 179 H (7-52) U/L Alkaline Phosphatase 178 H (34-104) U/L Troponin I 0.13 H* (0-0.04) ng/ml Total Protein 5.6 L (6.0-8.3) gm/dl Albumin 3.2 L (3.4-5.0) gm/dl Globulin 2.4 L (2.5-4.0) gm/dl Albumin/Globulin Ratio 1.3 (0.9-2) Urine Color Urine Appearance (Clear) Urine pH (4.5-7.5) Ur Specific [place] (1.000-1.030) Urine Protein (Negative) Urine Glucose (UA) (Negative) Urine Ketones (Negative) Urine Blood (Negative) Urine Nitrite (Negative) Urine Bilirubin (Negative) Urine Urobilinogen (Negative) Ur Leukocyte Esterase (Negative) 03/31/22 Range/Units 13:55 WBC (4.8-10.8) K/uL RBC (4.7-6.1) M/uL Hgb (14.0-18.0) g/dL Hct (42-52) % MCV (80-100) fL MCH (25-34) pg MCHC (32-36) g/dL RDW Std Deviation (36.4-46.3) fL RDW Coeff of [place] (11.5-14.5) % Plt Count (130-400) K/uL MPV (7.4-10.4) fL Immature Gran % (Auto) % Neut % (Auto) % Lymph % (Auto) % [place] % (Auto) % Eos % (Auto) % Baso % (Auto) % Neut # (Auto) (1.4-6.5) K/uL Lymph # (Auto) (1.2-3.4) K/uL [place] # (Auto) (0.11-0.59) K/uL Eos # (Auto) (0-0.5) K/uL Baso # (Auto) (0-0.2) K/uL Immature Gran # (Auto) (0.00-0.02) K/uL PT (9.0-12.0) Seconds INR (0.9-1.1) Sodium (136-145) mmol/L Potassium (3.5-5.1) mmol/L Chloride (98-107) mmol/L Carbon Dioxide (21-32) mmol/L Anion Gap (3-11) BUN (6-23) mg/dl Creatinine (0.6-1.4) mg/dl Est Cr Clr Drug Dosing ml/min Est GFR ( Amer) ml/min Est GFR (Non-Af Amer) ml/min BUN/Creatinine Ratio (10-20) Glucose (70-99(Fasting)) mg/dl Calcium (8.5-10.1) mg/dl Phosphorus (2.5-4.9) mg/dl Magnesium (1.7-2.4) mg/dl Total Bilirubin (0.2-1.0) mg/dl AST (13-39) U/L ALT (7-52) U/L Alkaline Phosphatase (34-104) U/L Troponin I (0-0.04) ng/ml Total Protein (6.0-8.3) gm/dl Albumin (3.4-5.0) gm/dl Globulin (2.5-4.0) gm/dl Albumin/Globulin Ratio (0.9-2) Urine Color Yellow Urine Appearance Clear (Clear) Urine pH 5.0 (4.5-7.5) Ur Specific [place] 1.017 (1.000-1.030) Urine Protein Negative (Negative) Urine Glucose (UA) 3+ H (Negative) Urine Ketones Negative (Negative) Urine Blood Negative (Negative) Urine Nitrite Negative (Negative) Urine Bilirubin Negative (Negative) Urine Urobilinogen Negative (Negative) Ur Leukocyte Esterase Negative (Negative) Imaging Data Radiologist's Impression: Cervical Spine CT 07/22/21 11:[address] DOSE: 1659.19 mGy.cm HISTORY: Fall. Neck pain. Trauma TECHNIQUE: Multiaxial CT images of the cervical spine were performed and reformatted in the sagittal and coronal plane without the use of contrast. A dose lowering technique was utilized adhering to the principles of ALARA. COMPARISON: None. FINDINGS: No fractures. No subluxation. Prevertebral soft tissues and the C1-C2 interval are intact. Moderate degenerative disc disease throughout the majority of the cervical spine. The left C4-C5 facets are fused. IMPRESSION: No fractures within the cervical spine. ACT 112: Negative or not required by law. Electronically signed by: Edmond Han M.D. 07/22/2021 1:12 PM Chest X-Ray 07/22/21 11:17 XR chest 1V portable CLINICAL HISTORY: fall/syncope COMPARISON STUDY: Chest radiograph May 03, 2019. FINDINGS: Left subclavian biventricular pacer/AICD is in place. There are median sternotomy wires. Cardiomegaly is unchanged. There is no evidence for pulmonary edema or pneumonia. No pneumothorax or pleural effusion is identified. Elevation/eventration of the left hemidiaphragm is unchanged. IMPRESSION: No acute cardiopulmonary findings. Cardiomegaly. ACT 112: Negative or not required by law. Electronically signed by: Bimal Griffiths M.D. 07/22/2021 12:[address] 07/22/21 11:17 CT head/brain wo con CLINICAL HISTORY: Status post fall with pain COMPARISON STUDY: 12/08/2017 CT DOSE: TECHNIQUE: Standard CT of the Brain was performed without IV contrast. A dose lowering technique was utilized adhering to the principles of ALARA. FINDINGS: Extraaxial space: There is no evidence for subdural hematoma. There are no extra-axial fluid collections. Ventricles and cisterns: The ventricles are again mildly to moderately dilated bilaterally. There is no evidence for midline shift or mass effect. Parenchyma: There is no subarachnoid or intraparenchymal hemorrhage. There is no evidence for an acute infarct or cerebral edema. There is mild cerebral cortical atrophy and decreased attenuation in the periventricular white matter representing remote small vessel disease. There are no gross mass lesions. Osseous structures: There is no evidence for an acute fracture. The visualized paranasal sinuses are clear. The mastoid air cells are clear bilaterally. Soft tissues: There is no evidence for focal soft tissue swelling. IMPRESSION: 1. No acute intracerebral pathology. 2. 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 ACT 112: Negative or not required by law. Electronically signed by: Samir Umana M.D. 07/22/2021 12:36 PM Gallbladder Ultrasound 07/22/21 13:29 US gallbladder CLINICAL HISTORY: transaminitis COMPARISON STUDY: CT of the abdomen and pelvis December 08, 2017. FINDINGS: Liver is sonographically normal. This exam is mildly compromised by suboptimal penetration. There is no biliary ductal dilatation. Common bile duct measures 5 mm in caliber. There are no gallstones. No gallbladder wall thickening. Pancreas is largely obscured. There is no right hydronephrosis. 2.9 cm right renal cyst is present. IMPRESSION: 1. No gallstones or biliary ductal dilatation. 2. Exam compromised by suboptimal penetration. Largely obscured pancreas. ACT 112: Negative or not required by law. Electronically signed by: Bmial Griffiths M.D. 07/22/2021 2:49 PM Discharge Plan Visit Data Chief Complaint: Fall ED Provider: Ken Quiles Discharge Problem: Syncope, CKD (chronic kidney disease) stage 4, GFR 15-29 ml/min, Transaminitis, CHI (closed head injury), Hx of CABG, CAD (coronary artery disease) Patient Disposition: Admitted As Inpatient Discharge Instructions Interventions: ED Discharge Assessment Last Done: 07/22/21 15:45
--- NOTE | 2021-07-22 12:23 | XRay Report ---
XR chest 1V portable CLINICAL HISTORY: fall/syncope COMPARISON STUDY: Chest radiograph May 03, 2019. FINDINGS: Left subclavian biventricular pacer/AICD is in place. There are median sternotomy wires. Ca rdiomegaly is unchanged. There is no evidence for pulmonary edema or pneumonia. No pneumothorax or pl eural effusion is identified. Elevation/eventration of the left hemidiaphragm is unchanged. IMPRESSION: No acute cardiopulmonary findings. Cardiomegaly. ACT 112: Negative or not required by law. Electronically signed by: Bimal Griffiths M.D. 07/22/2021 12:21 PM
--- NOTE | 2021-07-22 12:37 | CT Scan Report ---
CT head/brain wo con CLINICAL HISTORY: Status post fall with pain COMPARISON STUDY: 12/08/2017 CT DOSE: TECHNIQUE: Standard CT of the Brain was performed without IV contrast. A dose lowering technique was utilized adhering to the principles of ALARA. FINDINGS: Extraaxial space: There is no evidence for subdural hematoma. There are no extra-axial fluid collecti ons. Ventricles and cisterns: The ventricles are again mildly to moderately dilated bilaterally. There is no evidence for midline shift or mass effect. Parenchyma: There is no subarachnoid or intraparenchymal hemorrhage. There is no evidence for an acut e infarct or cerebral edema. There is mild cerebral cortical atrophy and decreased attenuation in the periventricular white matter representing remote small vessel disease. There are no gross mass lesio ns. Osseous structures: There is no evidence for an acute fracture. The visualized paranasal sinuses are clear. The mastoid air cells are clear bilaterally. Soft tissues: There is no evidence for focal soft tissue swelling. IMPRESSION: 1. No acute intracerebral pathology. 2. 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 ACT 112: Negative or not required by law. Electronically signed by: Samir Umana M.D. 07/22/2021 12:36 PM
[2021-07-22 12:42] LABS: Basophils # (auto) 0.01 K/uL (0-0.2); Basophils % (auto) 0.1 %; Eosinophils # (auto) 0.01 K/uL (0-0.5); Eosinophils % (auto) 0.1 %; Hematocrit (blood only) 39.7 % (42-52); Hemoglobin 13.9 g/dL (14.0-18.0); Immature Granulocytes # (auto) 0.04 K/uL (0.00-0.02); Immature Granulocytes % (auto) 0.4 %; Lymphocytes # (auto) 1.59 K/uL (1.2-3.4); Lymphocytes % (auto) 15.3 %; Mean Corpuscular Hemoglobin 34.5 pg (25-34); Mean Corpuscular Volume 98.5 fL (80-100); Mean Platelet Volume 11.9 fL (7.4-10.4); Monocytes # (auto) 0.75 K/uL (0.11-0.59); Monocytes % (auto) 7.2 %; Neutrophils # (auto) 8.02 K/uL (1.4-6.5); Neutrophils % (auto) 76.9 %; Platelet Count 109 K/uL (130-400); RDW Coefficient of Variation 14.9 % (11.5-14.5); RDW Standard Deviation 53.8 fL (36.4-46.3); Red Blood Count 4.03 M/uL (4.7-6.1); White Blood Count 10.42 K/uL (4.8-10.8)
[2021-07-22 12:49] LABS: Prothrombin Time 10.8 Seconds (9.0-12.0)
--- NOTE | 2021-07-22 13:13 | CT Scan Report ---
CERVICAL SPINE CT CT DOSE: 1659.19 mGy.cm HISTORY: Fall. Neck pain. Trauma TECHNIQUE: Multiaxial CT images of the cervical spine were performed and reformatted in the sagittal and coronal plane without the use of contrast. A dose lowering technique was utilized adhering to th e principles of ALARA. COMPARISON: None. FINDINGS: No fractures. No subluxation. Prevertebral soft tissues and the C1-C2 interval are intact. Moderate degenerative disc disease throughout the majority of the cervical spine. The left C4-C5 face ts are fused. IMPRESSION: No fractures within the cervical spine. ACT 112: Negative or not required by law. Electronically signed by: Edmond Han M.D. 07/22/2021 1:12 PM
[2021-07-22 13:21] LABS: Albumin Globulin Ratio 1.3 (0.9-2); Albumin Level 3.2 gm/dl (3.4-5.0); Bilirubin,Total 1.8 mg/dl (0.2-1.0); Calcium 8.8 mg/dl (8.5-10.1); Creatinine Clr Calc Pharmacy 21.4 ml/min; Est GFR (African American) 21.7 ml/min; Est GFR (Non-African American) 18.8 ml/min; Globulin 2.4 gm/dl (2.5-4.0); Magnesium 2.5 mg/dl (1.7-2.4); Phosphorus 3.7 mg/dl (2.5-4.9); Potassium 4.8 mmol/L (3.5-5.1); Total Protein 5.6 gm/dl (6.0-8.3)
[2021-07-22 13:46] LABS: Troponin I 0.13 ng/ml (0-0.04)
[2021-07-22 14:13] LABS: Appearance Urine Clear (Clear); Bilirubin Urine Negative (Negative); Blood Urine Negative (Negative); Color Urine Yellow; Glucose Urine UA 3+ (Negative); Ketones Urine Negative (Negative); Leukocyte Esterase Urine Negative (Negative); Nitrite Urine Negative (Negative); Protein Urine Negative (Negative); Specific Gravity Urine 1.017 (1.000-1.030); Urobilinogen Urine Negative (Negative)
--- NOTE | 2021-07-22 14:13 | History & Physical Report ---
Date of Service July 22, 2021 Assessment & Plan (1) Syncope: Plan: - Admit to tele - Possibly mechanical fall vs syncopal episode vs stroke - Cardiology to interrogate pacemaker/ICD - EKG reviewed, QTC is prolonged - Cannot obtain MRI due to ICD, CT of the head is negative, will repeat CT head tomorrow am - strength testing is in tact, + swallowing dysfunction and increased subjective weakness per HPI. - Fall precautions, PT/OT consults (2) DM type 2 (diabetes mellitus, type 2): Plan: -May continue glargine insulin, 10 units every morning, hold repaglinide and sitagliptin - Concern that he may have been acutely hypoglycemic this morning and could have caused weakness and fall due to recent changes in his antihyperglycemic medications. Glucose on arrival was 216. Lantus was recently increased within the past week from 10 units to 14 units, today was the first time he took 14 unit dose. Also today was the first day that he took repaglinide x2 tablets due to glucose being greater than 250 this morning. He is also on Januvia. -Continue Lantus 10 units every morning, hold other p.o. medications. - ISS with Accu-Cheks ACHS -Last A1c = 7.9 on 05/11/2021 -Had foot injection in the left by electrophysiologist on 06/16, likely leading to elevated blood glucoses, he was started on Prandin afterwards for glucoses greater than 200-250 by his PCP. He was also seen by pulmonology on 06/18/21 and was started on a long prednisone taper where he took 40 mg for 1 month with taper by 10 mg every 2 weeks until off. Currently is on 30 mg daily (cont until next then reduces to 20 mg) (3) Transaminitis: Plan: - Outpatient labs from mid April were reviewed, within normal limits: Today AST = 55, ALT = 179, alk phos = 178, total bilirubin 1.8 up from 1.1. - Pt describes new onset swallowing dysfunction - GI consulted - Continue on prednisone 30 mg daily (4) Elevated troponin: (5) Ischemic cardiomyopathy: Plan: - Trend troponin, initially elevated at 0.13 - cardiology consulted - 2D echo ordered-Last 2D echo reviewed on EMR through [facility] on 01/17/2021 showing EF of 25 to 29%, large sized apical, septal, inferior, posterior and lateral wall motion abnormality with hypokinesis to dyskinesis of the segments, left ventricular diastolic function is moderately abnormal (grade 2), mild aortic valve regurg, mild aortic valve sclerosis, mild MR, mild TR, proximal ascending thoracic aorta is mildly enlarged. - Follows with Dr. Billings as an outpatient (6) A-fib: Plan: - parosysmal, cont rate control. Not on formal anticoagulation but takes baby asa every other day. (7) CAD (coronary artery disease): Plan: - History of such x3 vessel disease - Cont asa QOD, last took it this morning. Not on other anticoagulation with parosysmal afib. - Cont statin, lasix, imdur, metoprolol succinate (8) Pacemaker: Plan: -Interrogate pacemaker if warranted per Cardiology (9) HTN (hypertension): Plan: - Cont meds as above (10) Hyperlipidemia: Plan: - Cont meds as above (11) Stage 4 chronic kidney disease: Plan: - BUN 82, Cr. 2.93 on admission, stable - Avoid nephrotoxins, renally reduce medications (12) Hypothyroidism: Plan: - Cont levothyroxine DVT ppx: - teds, scds, cont asa, add heparin subq CODE: DNR/DNI Dispo: From home, likely to remain in the hospital x 1-2 days History of Present Illness Primary Care Provider: Blanca Orellana MD This is a 86 yo M with PMhx of chronic ischemic cardiomyopathy with EF: 25-29%, CAD s/p CABG x 3, h/o VT, s/p pacer/defibrillator, Paroxysmal atrial fibrillation, CKD IV, DM II, HTN, HLD, TIA, hypothyroidism, gout, who presents after having sustained a fall earlier today. He was at [facility] with his who is present at bedside. He reports getting up to get a second cup of coffee and then stumbled, falling and hitting the back of his head after attempting to catch himself on a nearby bench, he denies any dizziness or lightheadedness or other prodrome prior to this event. He did not trip over anything specifically. Patient does note that he has had ongoing worsening weakness in his lower legs for the past 2 days. Does not use ambulatory device at baseline, but noticed his right leg being more weak than the left. He denies any changes in vision, slurred speech, weakness, seizure- like activity, or bowel or bladder incontinence. Patient also notes that he has had some issues with swallowing breakfast earlier today prior to the event, where he was eating oatmeal and had difficulty with a feeling of delayed swallowing when he was drinking milk, and has never noticed this before. He did take all his morning medications includes new changes to his diabetic medications due to elevated glucose likely secondary to being on prednisone for lung issues. His Lantus was increased within the past week from 10 units to12 U a few days ago, and to 14 units today which he took this morning, and also started repaglinide x2 doses today for the first time because his sugar was greater than 250. He is also on Januvia at baseline. EMS was called and picked him up at [facility] and was brought to the ER. There is not documented blood glucose to see if this was acutely low at the restaurant by my review of records. Upon blood work obtained here he was found to have a glucose of 261. It is also noted that he has an elevated troponin of 0.13 however has CKD and has chronically elevated troponin. He denies any chest pain, shortness of breath suggestive of ACS. His liver enzymes are acutely elevated, but denies any abdominal complaints, pain, nausea, or vomiting. Allergies Allergy/AdvReac Type Severity Reaction Status Date / Time amlodipine AdvReac Mild INSOMNIA Verified 07/22/21 12:28 Novocain SOLN Allergy Fever Uncoded 07/22/21 12:28 Home Medications Medication Instructions Recorded Confirmed Type allopurinol 100 mg tablet 200 mg PO DAILY 10/20/18 07/22/21 History aspirin 81 mg tablet,delayed 81 mg PO UD 10/20/18 07/22/21 History release atorvastatin 80 mg tablet 80 mg PO PM 10/20/18 07/22/21 History cyanocobalamin (vitamin B-12) 500 1,500 mcg PO QAM 10/20/18 07/22/21 History mcg tablet furosemide 20 mg tablet 80 mg PO MONTHUR 10/20/18 07/22/21 History gabapentin 400 mg capsule 400 mg PO HS 10/20/18 07/22/21 History insulin glargine 100 unit/mL (3 14 unit SUBCUT QAM 10/20/18 07/22/21 History mL) subcutaneous pen (Lantus Solostar U-100 Insulin) isosorbide mononitrate 30 mg 60 mg PO QAM 10/20/18 07/22/21 History tablet,extended release 24 hr levothyroxine 125 mcg tablet 125 mcg PO DAILY@0600 10/20/18 07/22/21 History metoprolol succinate 100 mg 100 mg PO QAM 10/20/18 07/22/21 History tablet,extended release 24 hr amiodarone 200 mg tablet 200 mg PO DAILY 12/19/18 07/22/21 History furosemide 20 mg tablet 40 mg PO 5XWK 05/03/19 07/22/21 History prednisone 10 mg tablet 10 mg PO TID 07/22/21 07/22/21 History repaglinide 1 mg tablet 0 mg PO TID 07/22/21 07/22/21 History sitagliptin 25 mg tablet (Januvia) 25 mg PO DAILY 07/22/21 07/22/21 History Past Med/Surg History Medical History Anemia Benign prostatic hyperplasia with urinary obstruction BPH (benign prostatic hyperplasia) CAD (coronary artery disease) s/p CABG x3 (1996) Diabetes DM type 2 (diabetes mellitus, type 2) Gout Gout Hearing deficit High cholesterol History of atrial fibrillation PAF HTN (hypertension) Hyperlipidemia Hypothyroidism ICD (implantable cardioverter-defibrillator) battery depletion Implanted (2003); Generator change (2009), BiV ICD update Ischemic cardiomyopathy PPM upgraded to BiV ICD Obesity Osteoarthritis Stage 4 chronic kidney disease Baseline creatinine 2.4-2.8 range per records Systolic heart failure Transient ischemic attack (TIA) 2015 Urinary urgency V tach Hx Surgical History History of cardiac cath History of colonoscopy History of eye surgery History of implantable cardiac defibrillator (ICD) History of tonsillectomy History of tooth extraction History of transurethral resection of prostate TURP (02/20/18): LMA#4 (iGel) at [facility] Hx of CABG CABG x3 (1996)- RUSS-LAD, SVG-RAMUS, SVG TO OM1 Hx of transurethral resection of prostate ICD (implantable cardioverter-defibrillator) in place Implanted (2003); Generator change (2009) Family History Brother Prostate cancer Diabetes Coronary heart disease Mother Diabetes Stroke Coronary heart disease Father Stroke Social History Smoking Status: Never smoker Second Hand Exposure: Yes (USED TO BE AT WORK (RETIRED 1996)); Hx Alcohol Use: No Hx Substance Use: No Preferred Language: Bolivian Communication Ability: Effective Body Design Checker Required: No Beliefs That Will Affect Care: None Current Living Situation: Spouse Other Information That Helps Us Care for You: No Feels Safe at Home: Yes Safety Concerns: Feels Safe At This Time Assistive Devices: None Review of Systems Review of Systems: Constitutional: No fever, sweats or chills Eyes: No diplopia, no worsening or blurred vision ENT: normal hearing, + trouble swallowing Respiratory: No cough, sputum, dyspnea at rest or on exertion Cardiovascular: No chest pain, tightness or palpitations Abdomen: No pain, nausea, vomiting, + recent diarrhea but improving, no constipation Musculoskeletal: No joint pain, calf pain, swelling Neurologic: + weakness as per HPI, numbness/tingling, + balance problems and does not use ambulatory device at baseline Psychiatric: No anxiety or depression Skin: No rash or itch Physical Exam Physical Exam: General: awake, alert, no apparent distress Head: Normocephalic, atraumatic ENT: PERRL, EOMI, no pharyngeal exudate, mucous membranes moist Chest: Clear to auscultation, on room air, no adventitious breath sounds Cardiac: Regular rate and rhythm, no murmur, no JVD, normal peripheral pulses, good capillary refill Abdominal: NABS x 4 quadrants, soft, nondistended, nontender to palpation, no rebound or guarding Extremities: Normal inspection, no peripheral edema or erythema, calfs nontender to palpation Psych: Normal mood and affect Neuro: AAO x 3, strength intact bilaterally and rated 5/5, no motor deficits, speech is clear, no peripheral sensory deficits Results & Data Results & Data ([facility]) Vital Signs (Past 12 Hours) Vital Signs Temp Pulse Resp BP Pulse Ox 07/22/21 12:33 62 18 133/61 96 07/22/21 12:00 60 18 101/63 93 07/22/21 11:30 60 21 136/72 97 07/22/21 11:15 75 12 98 07/22/21 10:59 36.7 C 60 16 136/72 97 Laboratory Results 07/22/21 07/22/21 07/22/21 Unknown 13:55 12:20 WBC RBC Hgb Hct MCV MCH MCHC RDW Std Deviation RDW Coeff of [place] Plt Count MPV Immature Gran % (Auto) Neut % (Auto) Lymph % (Auto) Andrew % (Auto) Eos % (Auto) Baso % (Auto) Neut # (Auto) Lymph # (Auto) Andrew # (Auto) Eos # (Auto) Baso # (Auto) Immature Gran # (Auto) PT INR Sodium 137 Potassium 4.8 Chloride 104 Carbon Dioxide 23 Anion Gap 10 BUN 82 H Creatinine 2.93 H Est Cr Clr Drug Dosing 21.4 Est GFR ( Amer) 21.7 Est GFR (Non-Af Amer) 18.8 BUN/Creatinine Ratio 28.0 H Glucose 216 H Calcium 8.8 Phosphorus 3.7 Magnesium 2.5 H Total Bilirubin 1.8 H AST 55 H ALT 179 H Alkaline Phosphatase 178 H Troponin I 0.13 H* Total Protein 5.6 L Albumin 3.2 L Globulin 2.4 L Albumin/Globulin Ratio 1.3 Urine Color Yellow Urine Appearance Clear Urine pH 5.0 Ur Specific [place] 1.017 Urine Protein Negative Urine Glucose (UA) 3+ H Urine Ketones Negative Urine Blood Negative Urine Nitrite Negative Urine Bilirubin Negative Urine Urobilinogen Negative Ur Leukocyte Esterase Negative SARS-CoV-2, RNA, NAAT NEGATIVE 07/22/21 07/22/21 12:20 12:20 WBC 10.42 RBC 4.03 L Hgb 13.9 L Hct 39.7 L MCV 98.5 MCH 34.5 H MCHC 35.0 RDW Std Deviation 53.8 H RDW Coeff of [place] 14.9 H Plt Count 109 L MPV 11.9 H Immature Gran % (Auto) 0.4 Neut % (Auto) 76.9 Lymph % (Auto) 15.3 Andrew % (Auto) 7.2 Eos % (Auto) 0.1 Baso % (Auto) 0.1 Neut # (Auto) 8.02 H Lymph # (Auto) 1.59 Andrew # (Auto) 0.75 H Eos # (Auto) 0.01 Baso # (Auto) 0.01 Immature Gran # (Auto) 0.04 H PT 10.8 INR 1.0 Sodium Potassium Chloride Carbon Dioxide Anion Gap BUN Creatinine Est Cr Clr Drug Dosing Est GFR ( Amer) Est GFR (Non-Af Amer) BUN/Creatinine Ratio Glucose Calcium Phosphorus Magnesium Total Bilirubin AST ALT Alkaline Phosphatase Troponin I Total Protein Albumin Globulin Albumin/Globulin Ratio Urine Color Urine Appearance Urine pH Ur Specific [place] Urine Protein Urine Glucose (UA) Urine Ketones Urine Blood Urine Nitrite Urine Bilirubin Urine Urobilinogen Ur Leukocyte Esterase SARS-CoV-2, RNA, NAAT Diagnostic Findings Cervical Spine CT 07/22/21 11:[address] DOSE: 1659.19 mGy.cm HISTORY: Fall. Neck pain. Trauma TECHNIQUE: Multiaxial CT images of the cervical spine were performed and reformatted in the sagittal and coronal plane without the use of contrast. A dose lowering technique was utilized adhering to the principles of ALARA. COMPARISON: None. FINDINGS: No fractures. No subluxation. Prevertebral soft tissues and the C1-C2 interval are intact. Moderate degenerative disc disease throughout the majority of the cervical spine. The left C4-C5 facets are fused. IMPRESSION: No fractures within the cervical spine. ACT 112: Negative or not required by law. Electronically signed by: Edmond Han M.D. 07/22/2021 1:12 PM Chest X-Ray 07/22/21 11:17 XR chest 1V portable CLINICAL HISTORY: fall/syncope COMPARISON STUDY: Chest radiograph May 03, 2019. FINDINGS: Left subclavian biventricular pacer/AICD is in place. There are median sternotomy wires. Cardiomegaly is unchanged. There is no evidence for pulmonary edema or pneumonia. No pneumothorax or pleural effusion is identified. Elevation/eventration of the left hemidiaphragm is unchanged. IMPRESSION: No acute cardiopulmonary findings. Cardiomegaly. ACT 112: Negative or not required by law. Electronically signed by: Bimal Griffiths M.D. 07/22/2021 12:[address] 07/22/21 11:17 CT head/brain wo con CLINICAL HISTORY: Status post fall with pain COMPARISON STUDY: 12/08/2017 CT DOSE: TECHNIQUE: Standard CT of the Brain was performed without IV contrast. A dose lowering technique was utilized adhering to the principles of ALARA. FINDINGS: Extraaxial space: There is no evidence for subdural hematoma. There are no extra-axial fluid collections. Ventricles and cisterns: The ventricles are again mildly to moderately dilated bilaterally. There is no evidence for midline shift or mass effect. Parenchyma: There is no subarachnoid or intraparenchymal hemorrhage. There is no evidence for an acute infarct or cerebral edema. There is mild cerebral cortical atrophy and decreased attenuation in the periventricular white matter representing remote small vessel disease. There are no gross mass lesions. Osseous structures: There is no evidence for an acute fracture. The visualized p aranasal sinuses are clear. The mastoid air cells are clear bilaterally. Soft tissues: There is no evidence for focal soft tissue swelling. IMPRESSION: 1. No acute intracerebral pathology. 2. 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 ACT 112: Negative or not required by law. Electronically signed by: Samir Umana M.D. 07/22/2021 12:36 PM Gallbladder Ultrasound 07/22/21 13:29 US gallbladder CLINICAL HISTORY: transaminitis COMPARISON STUDY: CT of the abdomen and pelvis December 08, 2017. FINDINGS: Liver is sonographically normal. This exam is mildly compromised by suboptimal penetration. There is no biliary ductal dilatation. Common bile duct measures 5 mm in caliber. There are no gallstones. No gallbladder wall thickening. Pancreas is largely obscured. There is no right hydronephrosis. 2.9 cm right renal cyst is present. IMPRESSION: 1. No gallstones or biliary ductal dilatation. 2. Exam compromised by suboptimal penetration. Largely obscured pancreas. ACT 112: Negative or not required by law. Electronically signed by: Bimal Griffiths M.D. 07/22/2021 2:49 PM ECG Additional Comments: 22-JUL-2021 11:13:14 [facility]-EDSTAT ROUTINE RETRIEVAL Poor data quality, interpretation may be adversely affected Sinus rhythm with complete heart block and Ventricular-paced rhythm Abnormal ECG When compared with ECG of 19-DEC-2018 14:06, Sinus rhythm is now with complete heart block Vent. rate has increased BY 15 BPM 25mm/[id number]: [id number] by: REFERRED SELF Unconfirmed Vent. rate 75 BPM SD interval * ms QRS duration 170 ms QT/QTc 448/500 ms Code Status & VTE Plan Code Status DNR/DNI - discussed with pt and at bedside Supervising Physician Co-Signing Physician Notes Patient is an 86-year-old male with history of ischemic cardiomyopathy, paroxysmal atrial fibrillation, CKD stage IV, hypertension and other medical problems presents with history of fall resulting in minimal bumping of head while ambulating today. Patient denies any dizziness or any other prodromal symptoms prior to the episode. He states that he has been having balance issues with ambulation lately for the past few days. He denies loss of consciousness, seizure-like activity or bowel bladder incontinence, change in vision. He admits to having issues with swallowing this morning while eating oatmeal which is unusual for him. He follows with rice drier and was placed on prolonged prednisone taper course for hemoptysis which currently resolved. His blood glucose levels have been uncontrolled secondary to steroid use. He was started on repaglinide, Januvia and his insulin was increased to 14 units recently. Patient for the first time took repaglinide-2 tablets as his blood glucose level was greater than 250. He denies any focal weakness. Also states having diarrhea for the past 2 weeks. Please review HPI for complete details of presentation. Blood work suggestive of hemoglobin 13.9, platelets 109K, creatinine 2.93, glucose 276, elevated LFTs, troponin [address] head showed no acute pathology. Chest x-ray showed no acute cardiopulmonary findings. Gallbladder ultrasound pending. EKG showed ventricular paced rhythm. On exam patient is elderly, no apparent distress, normocephalic, minimal erythema on occipital region on the left side, EOMI, normal breath sounds, clear to auscultation, trace pedal edema, S1-S2, abdomen soft, nontender, normal bowel sounds, alert, awake, oriented, grossly nonfocal deficits. Patient is admitted for management of fall, head trauma trauma, presyncope, ambulatory dysfunction. Also noted transaminitis, abnormal EKG and mild troponin elevation in setting of CKD. CT head showed no acute findings. Patient unable to get MRI secondary to ICD. Will repeat CT head tomorrow. Fall precautions, PT OT requested. May need ICD interrogation. Check resting echo. Monitor for any arrhythmias. Cardiology consulted. Further work-up based on gallbladder imaging. Monitor for hypoglycemia. Stool studies to rule out any infection. I personally reviewed the record. Patient is interviewed and examined at bedside. Patient's care is coordinated with Latrice Carolina PA-C. Please refer to the documentation above for details of patient's presentation and for discussion of other issues.
--- NOTE | 2021-07-22 14:50 | Ultrasound Report ---
US gallbladder CLINICAL HISTORY: transaminitis COMPARISON STUDY: CT of the abdomen and pelvis December 08, 2017. FINDINGS: Liver is sonographically normal. This exam is mildly compromised by suboptimal penetration. There is no biliary ductal dilatation. Common bile duct measures 5 mm in caliber. There are no galls tones. No gallbladder wall thickening. Pancreas is largely obscured. There is no right hydronephrosis . 2.9 cm right renal cyst is present. IMPRESSION: 1. No gallstones or biliary ductal dilatation. 2. Exam compromised by suboptimal penetration. Largely obscured pancreas. ACT 112: Negative or not required by law. Electronically signed by: Bimal Griffiths M.D. 07/22/2021 2:49 PM
[2021-07-22] MEDS ORDERED: DEXTROSE 50% 50 ML SYRINGE IV PRN (16:24)
[2021-07-22] MEDS ORDERED: ACETAMINOPHEN 325 MG TAB PO PRN (16:24)
[2021-07-22] MEDS ORDERED: GLUCOSE 40% GEL 15 GM TUBE PO PRN (16:24)
[2021-07-22] MEDS ORDERED: ONDANSETRON INJ 2 MG/ML 2 ML VIAL IV PRN (16:24)
[2021-07-22] MEDS ORDERED: CARBOHYDRATES FOR HYPOGLYCEMIA PO PRN (16:24)
[2021-07-22] MEDS ORDERED: GLUCAGON FOR INJ 1 MG VIAL SQ PRN (16:24)
[2021-07-22] MEDS ORDERED: GLUCOSE 10 TABS/TUBE PO PRN (16:24)
[2021-07-22] MEDS: INSULIN ASPART PER UNIT SC SCH ×2 (18:51→20:33)
[2021-07-22] MEDS: GABAPENTIN 400 MG CAP PO SCH (20:39)
[2021-07-22] MEDS: ATORVASTATIN 40 MG TAB PO SCH (20:39)
[2021-07-22] MEDS: HEPARIN SOD 5,000 UNIT/0.5 ML VIAL SQ SCH (21:35)
[2021-07-23 03:23] LABS: Hematocrit (blood only) 38.8 % (42-52); Hemoglobin 13.1 g/dL (14.0-18.0); Mean Corpuscular Hemoglobin 33.5 pg (25-34); Mean Corpuscular Hgb Conc 33.8 g/dL (32-36); Mean Corpuscular Volume 99.2 fL (80-100); RDW Coefficient of Variation 14.9 % (11.5-14.5); RDW Standard Deviation 53.8 fL (36.4-46.3); Red Blood Count 3.91 M/uL (4.7-6.1); White Blood Count 7.56 K/uL (4.8-10.8)
[2021-07-23 03:35] LABS: Prothrombin Time 10.7 Seconds (9.0-12.0)
[2021-07-23 03:43] LABS: Mean Platelet Volume 11.3 fL (7.4-10.4); Platelet Count 95 K/uL (130-400)
[2021-07-23 03:44] LABS: Platelet Estimate Decreased (Normal)
[2021-07-23 03:52] LABS: Albumin Globulin Ratio 1.4 (0.9-2); BUN Creatinine Ratio 26.6 (10-20); Bilirubin Direct 0.5 mg/dl (0-0.2); Bilirubin,Total 1.3 mg/dl (0.2-1.0); Calcium 8.4 mg/dl (8.5-10.1); Creatinine Clr Calc Pharmacy 20.4 ml/min; Est GFR (African American) 23.2 ml/min; Globulin 2.1 gm/dl (2.5-4.0); Magnesium 2.4 mg/dl (1.7-2.4); Potassium 4.3 mmol/L (3.5-5.1); Total Protein 5.1 gm/dl (6.0-8.3)
[2021-07-23] MEDS: LEVOTHYROXINE SODIUM 125 MCG TABLET PO SCH (05:49)
--- NOTE | 2021-07-23 06:03 | Electrocardiogram Report ---
Test Reason : Blood Pressure : / mmHG Vent. Rate : 075 BPM Atrial Rate : 083 BPM P-R Int : 000 ms QRS Dur : 170 ms QT Int : 448 ms P-R-T Axes : 000 -82 105 degrees QTc Int : 500 ms Poor data quality, interpretation may be adversely affected Ventricular-paced rhythm Abnormal ECG When compared with ECG of 19-DEC-2018 14:06, Atrial pacing is no longer present Vent. rate has increased BY 15 BPM Confirmed by Tunde Nobles ([id number]) on 07/23/2021 6:02:56 AM Referred By: REFERRED SELF Confirmed By:Tunde Nobles
[2021-07-23] MEDS: ASPIRIN 81 MG ECTAB PO SCH (08:00)
[2021-07-23] MEDS: ISOSORBIDE MONO EXTENDED REL 60 MG TABCR PO SCH (08:00)
[2021-07-23] MEDS: allopurinoL 100 MG TAB PO SCH (08:00)
[2021-07-23] MEDS: predniSONE 10 MG TABLET PO SCH (08:01)
[2021-07-23] MEDS: AMIODARONE 200 MG TAB PO SCH (08:01)
[2021-07-23] MEDS: METOPROLOL SUCC 50MG EXT REL TAB PO SCH (08:03)
[2021-07-23] MEDS: HEPARIN SOD 5,000 UNIT/0.5 ML VIAL SQ SCH ×2 (08:03→20:50)
[2021-07-23] MEDS: FUROSEMIDE 40 MG TAB PO SCH (08:03)
[2021-07-23] MEDS: CYANOCOBALAMIN (B-12) 500 MCG TABLET PO SCH (08:03)
[2021-07-23] MEDS: INSULIN ASPART PER UNIT SC SCH ×4 (08:12→20:52)
[2021-07-23] MEDS: INSULIN GLARGINE SOLOSTAR 100 UNITS/ML 3 ML PEN SQ SCH (08:13)
--- NOTE | 2021-07-23 08:37 | Cardiology Consultation ---
Date of Consultation July 23, 2021 Assessment & Plan (1) Fall: (2) CHI (closed head injury): (3) Chronic ischemic heart disease: (4) Ischemic cardiomyopathy: (5) CAD (coronary artery disease): (6) 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: 86-year-old male admitted status post fall with closed head injury. History does not suggest syncope. Telemetry reveals ventricular paced rhythm without dysrhythmia. ICD interrogation pending at this time. Repeat resting 2D transthoracic echocardiogram was performed with results pending. He appears compensated from a heart failure perspective If ICD interrogation and resting 2D transthoracic echocardiogram are stable, no further cardiac intervention necessary at this time. Continue outpatient cardiovascular medications as previously ordered with follow-up as scheduled 08/24/2021. History of Present Illness Reason for Consultation: Possible Syncope Requesting Physician: Dr. Cuello Attending Physician: Kilo Cuello MD History of Present Illness 86-year-old patient presented to the emergency department after a fall striking his head. He had been at the local [facility] drinking coffee. He stood up to walk towards the coffee machine to refill his cup when he stumbled to his rest side, reach for chair, however missed it and fell to the ground striking his head. Denies any palpitations, lightheadedness, dizziness, syncope, or near syncope. No chest discomfort or unusual shortness of breath. His function opacity has been stable. He voiced concern regarding some left lower extremity weakness occurring near the time of his fall. States this weakness has been intermittent over the past 4 weeks. Denies any upper extremity weakness, visual changes, slurred speech, dysphagia, or paresthesias. Tolerating cardiovascular medications. Complex cardiovascular history listed below. Past medical/cardiovascular history: 1. Long-standing history of ischemic heart disease Status post inferior wall myocardial infarction in 1980 Status post January 1997 coronary bypass grafting x 3, receiving a RUSS graft to the LAD, a saphenous vein graft to the ramus, and a SVG to the 1st obtuse marginal. 2. Ischemic cardiomyopathy, EF 20-25% with diffuse severe LV dysfunction. 3. NYHA Class 3 congestive heart failure. 4. CCS Class III angina pectoris 5. History of sustained monomorphic ventricular tachycardia. Patient previously treated with amiodarone from September 04, 2006 to January 12, 2021 6. Status post dual chamber pacemaker defibrillator implantation on March 11, 2004, generator exchanges on 07/09/2009, and November 11, 2014 using a Cortheraa XT [id number] device. 7. Status post December 19, 2018 upgrade from a dual chamber implantable cardiac defibrillator to a biventricular rate responsive implantable cardiac defibrillator by Dr. Basurto at [facility]. 8. Paroxysmal atrial fibrillation initially observed in July 2017 9. Patient previously prescribed Coumadin anticoagulation, discontinued in September 2019 due to frequent falls. 10. Hypertension 11. Hyperlipidemia 12. Type III diabetes mellitus Allergies Allergy/AdvReac Type Severity Reaction Status Date / Time amlodipine AdvReac Mild INSOMNIA Verified 07/22/21 12:28 Novocain SOLN Allergy Fever Uncoded 07/22/21 12:28 Home Medications Medication Instructions Recorded Confirmed Type allopurinol 100 mg tablet 200 mg PO DAILY 10/20/18 07/22/21 History aspirin 81 mg tablet,delayed 81 mg PO UD 10/20/18 07/22/21 History release atorvastatin 80 mg tablet 80 mg PO PM 10/20/18 07/22/21 History cyanocobalamin (vitamin B-12) 500 1,500 mcg PO QAM 10/20/18 07/22/21 History mcg tablet furosemide 20 mg tablet 80 mg PO MONTHUR 10/20/18 07/22/21 History gabapentin 400 mg capsule 400 mg PO HS 10/20/18 07/22/21 History insulin glargine 100 unit/mL (3 14 unit SUBCUT QAM 10/20/18 07/22/21 History mL) subcutaneous pen (Lantus Solostar U-100 Insulin) isosorbide mononitrate 30 mg 60 mg PO QAM 10/20/18 07/22/21 History tablet,extended release 24 hr levothyroxine 125 mcg tablet 125 mcg PO DAILY@0600 10/20/18 07/22/21 History metoprolol succinate 100 mg 100 mg PO QAM 10/20/18 07/22/21 History tablet,extended release 24 hr amiodarone 200 mg tablet 200 mg PO DAILY 12/19/18 07/22/21 History furosemide 20 mg tablet 40 mg PO 5XWK 05/03/19 07/22/21 History prednisone 10 mg tablet 10 mg PO TID 07/22/21 07/22/21 History repaglinide 1 mg tablet 0 mg PO TID 07/22/21 07/22/21 History sitagliptin 25 mg tablet (Januvia) 25 mg PO DAILY 07/22/21 07/22/21 History Patient History Medical History Anemia Benign prostatic hyperplasia with urinary obstruction BPH (benign prostatic hyperplasia) CAD (coronary artery disease) s/p CABG x3 (1996) Diabetes DM type 2 (diabetes mellitus, type 2) Gout Gout Hearing deficit High cholesterol History of atrial fibrillation PAF HTN (hypertension) Hyperlipidemia Hypothyroidism ICD (implantable cardioverter-defibrillator) battery depletion Implanted (2003); Generator change (2009), BiV ICD update Ischemic cardiomyopathy PPM upgraded to BiV ICD Obesity Osteoarthritis Stage 4 chronic kidney disease Baseline creatinine 2.4-2.8 range per records Systolic heart failure Transient ischemic attack (TIA) 2015 Urinary urgency V tach Hx Surgical History History of cardiac cath History of colonoscopy History of eye surgery History of implantable cardiac defibrillator (ICD) History of tonsillectomy History of tooth extraction History of transurethral resection of prostate TURP (02/20/18): LMA#4 (iGel) at [facility] Hx of CABG CABG x3 (1996)- RUSS-LAD, SVG-RAMUS, SVG TO OM1 Hx of transurethral resection of prostate ICD (implantable cardioverter-defibrillator) in place Implanted (2003); Generator change (2009) Family History Brother Prostate cancer Diabetes Coronary heart disease Mother Diabetes Stroke Coronary heart disease Father Stroke Social History Smoking Status: Never smoker Second Hand Exposure: Yes (USED TO BE AT WORK (RETIRED 1996)); Hx Alcohol Use: No Hx Substance Use: No Preferred Language: Kyr[place]z Communication Ability: Effective Booking Police Officer Required: No Beliefs That Will Affect Care: None Current Living Situation: Spouse Other Information That Helps Us Care for You: No Feels Safe at Home: Yes Safety Concerns: Feels Safe At This Time Assistive Devices: None Review of Systems Review of Systems: All systems reviewed & are unremarkable except as noted in Subjective Physical Exam Constitutional: well developed and well nourished; no acute distress Respiratory: normal respiratory effort; no respiratory distress, no labored breathing and no retractions Cardiovascular: Rate/Rhythm: regular rate and regular rhythm Heart Sounds: normal S1 and normal S2; no murmur Palpation: normal PMI Vessels: no JVD and no carotid bruit Extremities: no edema Gastrointestinal (Abdomen): Inspection/Auscultation: abdomen normal to inspection and normal bowel sounds; abdomen not distended Percussion/Palpati on: abdomen soft; abdomen nontender, no guarding and abdomen not rigid Neurologic: CN's II-XI intact bilaterally and moves all extremities; no focal motor deficits Motor/Sensory: no tremor Psychiatric: A+Ox3, euthymic affect Results & Data ([facility]) Vital Signs (Past 12 Hours) Vital Signs Temp Pulse Resp BP Pulse Ox 07/23/21 08:00 36.5 C 60 16 124/65 96 07/23/21 04:05 36.6 C 62 18 115/62 95 07/22/21 23:40 36.8 C 60 20 127/70 96 Diagnostic Findings 2D echo 01/07/21: The qualitative LV ejection fraction is 25-29% (severely reduced). The wall thickness is moderately increased in segments with normal wall motion. There is a large sized apical, septal, inferior, posterior, and lateral wall motion abnormality with hypokinesis to dyskinesis of the segments. The left ventricular apex is akinetic to dyskinetic. This may represent pacemaker activation. The left ventricular diastolic function is moderately abnormal (grade II). Mild aortic valve regurgitation is present. Mild aortic valve sclerosis is present. Mild mitral regurgitation is present. Mild tricuspid regurgitation is present. The proximal ascending thoracic aorta is mildly enlarged. Compared to prior study of 09/02/2016, there is no significant change. (1) CHI (closed head injury) Encounter type: initial encounter Qualified Code(s): S09.90XA - Unspecified injury of head, initial encounter (2) CAD (coronary artery disease) Associated angina: without angina Coronary Disease-Associated Artery/Lesion type: unspecified vessel or lesion type [place] vs. transplanted heart: [place] heart Qualified Code(s): I25.10 - Atherosclerotic heart disease of [place] coronary artery without angina pectoris
--- NOTE | 2021-07-23 08:47 | CT Scan Report ---
CT head/brain wo con CLINICAL HISTORY: 86 years-old Male with Eval for changes d/t stroke. Acute strokelike symptoms TECHNIQUE: Multiple axial CT images of the head were obtained without contrast. A dose lowering tech nique was utilized adhering to the principles of ALARA. CT DOSE: 614.27 mGy.cm COMPARISON: Head CT 07/22/2021 FINDINGS: No acute intracranial hemorrhage, midline shift, intracranial mass, hydrocephalus, territorial ischem ia or abnormal extra-axial collection. Age-related involutional changes. White matter hypodensities r edemonstrated suggestive of chronic microvascular ischemic disease. Cerebral vascular calcifications. The calvarium is intact. Contusion of the left parietal scalp near the vertex posteriorly. Mild subcu taneous edema of the left lateral cheek. Prior bilateral lens repair. The paranasal sinuses, mastoid air cells, and middle ear cavities are clear. IMPRESSION: No acute intracranial abnormality. ACT 112: Negative or not required by law. The above report was generated using voice recognition software. It may contain grammatical, syntax o r spelling errors. Electronically signed by: Carlos Narvaez M.D. 07/23/2021 8:46 AM
[2021-07-23] MEDS ORDERED: INSULIN GLARGINE SOLOSTAR 100 UNITS/ML 3 ML PEN SQ SCH (09:00)
--- NOTE | 2021-07-23 09:09 | Gastrointestinal Consultation ---
Date of Consultation July 23, 2021 Assessment & Plan (1) Transaminitis: 86 year old male with admitted with syncope, fall - GI asked to evaluate for elevated LFTs. He denies abd pain, nausea/vomiting or GERD but suggests he has had intermittent dysphagia and dark stools. He is on a regular diet this AM. Regarding his liver enzymes, no evidence of obstruction on ABD US, perhaps medication induced. Will arrange liver serology. Trend HGB Document output Transfuse as needed IV PPI BID Soft, slippery diet as tolerated Liver serology EGD timing to be determined, not today given PO intake EUS-LB if persistent elevation of his liver enzymes Thank you for allowing us to participate in the care of this patient. Please call with any acute changes, questions or concerns. Please see addendum below with additional recommendation from my supervising physician. Supervising Physician Co-Signing Physician Notes I saw and evaluated the patient. Gastroneurology was consulted for evaluation of intermittent solid food dysphagia ongoing for several months in addition to slight elevation of the patient's liver associated enzymes. He does have a history of atrial fibrillation and congestive heart failure and is managed by a number of providers to include cardiology. Does have a history of amiodarone use and is unclear if he is still presently on this medication Physical examination No obvious distress No scleral icterus, no JVD today, no abdominal tenderness Impression Patient with intermittent solid food dysphagia we could certainly evaluate this at a upper endoscopy in the near future with plan for esophageal dilation if negative. The patient also does have a slight elevation of his AST and ALT. Based on the patient's history I would wonder about congestive hepatopathy or perhaps a medication side effect such as amiodarone. Recommendations Suggest viral serologies for hepatitis A, hepatitis B hepatitis C and autoimmune markers Consider obtaining a proBNP Patient upper endoscopy and EUS to be scheduled Follow-up with any questions or concerns, GI to sign off History of Present Illness Reason for Consultation: elevated LFTs Requesting Physician: Cuate Attending Physician: Kilo Cuello MD History of Present Illness 86 year old male with history ofischemic cardiomyopathy, paroxysmal atrial fibrillation, CKD stage IV, hypertension admitted through the ED with a fall. Pt was seen and evaluated, chart reviewed. Notes from a GI standpoint he is feeling well. He has not been having any abdominal pain. No nausea, vomiting. No GERD. He has had some intermittent dysphagia. Moving bowels okay. Has had some dark stools intermittently x 2 months. No hematochezia. No fever, chills, CP, SOB. ABD US 2021: No gallstones or biliary ductal dilatation. Exam compromised by suboptimal penetration. Largely obscured pancreas. 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 TB 1.3, AST 51, ALT 161, ALKP 140 Allergies Allergy/AdvReac Type Severity Reaction Status Date / Time amlodipine AdvReac Mild INSOMNIA Verified 07/22/21 12:28 Novocain SOLN Allergy Fever Uncoded 07/22/21 12:28 Home Medications Medication Instructions Recorded Confirmed Type allopurinol 100 mg tablet 200 mg PO DAILY 10/20/18 07/22/21 History aspirin 81 mg tablet,delayed 81 mg PO UD 10/20/18 07/22/21 History release atorvastatin 80 mg tablet 80 mg PO PM 10/20/18 07/22/21 History cyanocobalamin (vitamin B-12) 500 1,500 mcg PO QAM 10/20/18 07/22/21 History mcg tablet furosemide 20 mg tablet 80 mg PO MONTHUR 10/20/18 07/22/21 History gabapentin 400 mg capsule 400 mg PO HS 10/20/18 07/22/21 History insulin glargine 100 unit/mL (3 14 unit SUBCUT QAM 10/20/18 07/22/21 History mL) subcutaneous pen (Lantus Solostar U-100 Insulin) isosorbide mononitrate 30 mg 60 mg PO QAM 10/20/18 07/22/21 History tablet,extended release 24 hr levothyroxine 125 mcg tablet 125 mcg PO DAILY@0600 10/20/18 07/22/21 History metoprolol succinate 100 mg 100 mg PO QAM 10/20/18 07/22/21 History tablet,extended release 24 hr amiodarone 200 mg tablet 200 mg PO DAILY 12/19/18 07/22/21 History furosemide 20 mg tablet 40 mg PO 5XWK 05/03/19 07/22/21 History prednisone 10 mg tablet 10 mg PO TID 07/22/21 07/22/21 History repaglinide 1 mg tablet 0 mg PO TID 07/22/21 07/22/21 History sitagliptin 25 mg tablet (Januvia) 25 mg PO DAILY 07/22/21 07/22/21 History Patient History Medical History Anemia Benign prostatic hyperplasia with urinary obstruction BPH (benign prostatic hyperplasia) CAD (coronary artery disease) s/p CABG x3 (1996) Diabetes DM type 2 (diabetes mellitus, type 2) Gout Gout Hearing deficit High cholesterol History of atrial fibrillation PAF HTN (hypertension) Hyperlipidemia Hypothyroidism ICD (implantable cardioverter-defibrillator) battery depletion Implanted (2003); Generator change (2009), BiV ICD update Ischemic cardiomyopathy PPM upgraded to BiV ICD Obesity Osteoarthritis Stage 4 chronic kidney disease Baseline creatinine 2.4-2.8 range per records Systolic heart failure Transient ischemic attack (TIA) 2015 Urinary urgency V tach Hx Surgical History History of cardiac cath History of colonoscopy History of eye surgery History of implantable cardiac defibrillator (ICD) History of tonsillectomy History of tooth extraction History of transurethral resection of prostate TURP (02/20/18): LMA#4 (iGel) at [facility] Hx of CABG CABG x3 (1996)- RUSS-LAD, SVG-RAMUS, SVG TO OM1 Hx of transurethral resection of prostate ICD (implantable cardioverter-defibrillator) in place Implanted (2003); Generator change (2009) Family History Brother Prostate cancer Diabetes Coronary heart disease Mother Diabetes Stroke Coronary heart disease Father Stroke Social History Smoking Status: Never smoker Second Hand Exposure: Yes (USED TO BE AT WORK (RETIRED 1996)); Hx Alcohol Use: No Hx Substance Use: No Preferred Language: German Communication Ability: Effective Building Engineer Required: No Beliefs That Will Affect Care: None Current Living Situation: Spouse Other Information That Helps Us Care for You: No Feels Safe at Home: Yes Safety Concerns: Feels Safe At This Time Assistive Devices: None Review of Systems Review of Systems: All systems reviewed & are unremarkable except as noted in HPI & below Physical Exam Constitutional: WD/WN, vitals as above Neck: trachea midline, no thyromegaly Respiratory: normal respiratory effort, lungs clear to auscultation Cardiovascular: Rate/Rhythm: regular rate Gastrointestinal (Abdomen): normal bowel sounds, soft, nontender, no hepatosplenomegaly Skin: no rashes, warm and dry Results & Data ([facility]) Vital Signs (Past 12 Hours) Vital Signs Temp Pulse Resp BP Pulse Ox 07/23/21 08:00 36.5 C 60 16 124/65 96 07/23/21 04:05 36.6 C 62 18 115/62 95 07/22/21 23:40 36.8 C 60 20 127/70 96 Laboratory Results 07/23/21 07/23/21 07/23/21 Range/Units 07:17 03:00 03:00 WBC (4.8-10.8) K/uL RBC (4.7-6.1) M/uL Hgb (14.0-18.0) g/dL Hct (42-52) % MCV (80-100) fL MCH (25-34) pg MCHC (32-36) g/dL RDW Std Deviation (36.4-46.3) fL RDW Coeff of [place] (11.5-14.5) % Plt Count (130-400) K/uL MPV (7.4-10.4) fL Immature Gran % (Auto) % Neut % (Auto) % Lymph % (Auto) % [place] % (Auto) % Eos % (Auto) % Baso % (Auto) % Neut # (Auto) (1.4-6.5) K/uL Lymph # (Auto) (1.2-3.4) K/uL [place] # (Auto) (0.11-0.59) K/uL Eos # (Auto) (0-0.5) K/uL Baso # (Auto) (0-0.2) K/uL Immature Gran # (Auto) (0.00-0.02) K/uL Platelet Estimate (Normal) PT (9.0-12.0) Seconds INR (0.9-1.1) Sodium 136 (136-145) mmol/L Potassium 4.3 (3.5-5.1) mmol/L Chloride 104 (98-107) mmol/L Carbon Dioxide 25 (21-32) mmol/L Anion Gap 7 (3-11) BUN 74 H (6-23) mg/dl Creatinine 2.78 H (0.6-1.4) mg/dl Est Cr Clr Drug Dosing 20.4 ml/min Est GFR ( Amer) 23.2 ml/min Est GFR (Non-Af Amer) 20.0 ml/min BUN/Creatinine Ratio 26.6 H (10-20) Glucose 163 H (70-99(Fasting)) mg/dl POC Glucose 123 H (70-99) mg/dl Calcium 8.4 L (8.5-10.1) mg/dl Phosphorus (2.5-4.9) mg/dl Magnesium 2.4 (1.7-2.4) mg/dl Total Bilirubin 1.3 H (0.2-1.0) mg/dl Direct Bilirubin 0.5 H (0-0.2) mg/dl AST 51 H (13-39) U/L ALT 161 H (7-52) U/L Alkaline Phosphatase 140 H (34-104) U/L Troponin I (0-0.04) ng/ml Total Protein 5.1 L (6.0-8.3) gm/dl Albumin 3.0 L (3.4-5.0) gm/dl Globulin 2.1 L (2.5-4.0) gm/dl Albumin/Globulin Ratio 1.4 (0.9-2) TSH 0.444 (0.300-4.500) uIu/ml Urine Color Urine Appearance (Clear) Urine pH (4.5-7.5) Ur Specific C[place] (1.000-1.030) Urine Protein (Negative) Urine Glucose (UA) (Negative) Urine Ketones (Negative) Urine Blood (Negative) Urine Nitrite (Negative) Urine Bilirubin (Negative) Urine Urobilinogen (Negative) Ur Leukocyte Esterase (Negative) SARS-CoV-2, RNA, NAAT (NEGATIVE) 07/23/21 07/23/21 07/23/21 Range/Units 03:00 03:00 03:00 WBC 7.56 (4.8-10.8) K/uL RBC 3.91 L (4.7-6.1) M/uL Hgb 13.1 L (14.0-18.0) g/dL Hct 38.8 L (42-52) % MCV 99.2 (80-100) fL MCH 33.5 (25-34) pg MCHC 33.8 (32-36) g/dL RDW Std Deviation 53.8 H (36.4-46.3) fL RDW Coeff of [place] 14.9 H (11.5-14.5) % Plt Count 95 L (130-400) K/uL MPV 11.3 H (7.4-10.4) fL Immature Gran % (Auto) % Neut % (Auto) % Lymph % (Auto) % [place] % (Auto) % Eos % (Auto) % Baso % (Auto) % Neut # (Auto) (1.4-6.5) K/uL Lymph # (Auto) (1.2-3.4) K/uL [place] # (Auto) (0.11-0.59) K/uL Eos # (Auto) (0-0.5) K/uL Baso # (Auto) (0-0.2) K/uL Immature Gran # (Auto) (0.00-0.02) K/uL Platelet Estimate Decreased L (Normal) PT 10.7 (9.0-12.0) Seconds INR 1.0 (0.9-1.1) Sodium (136-145) mmol/L Potassium (3.5-5.1) mmol/L Chloride (98-107) mmol/L Carbon Dioxide (21-32) mmol/L Anion Gap (3-11) BUN (6-23) mg/dl Creatinine (0.6-1.4) mg/dl Est Cr Clr Drug Dosing ml/min Est GFR ( Amer) ml/min Est GFR (Non-Af Amer) ml/min BUN/Creatinine Ratio (10-20) Glucose (70-99(Fasting)) mg/dl POC Glucose (70-99) mg/dl Calcium (8.5-10.1) mg/dl Phosphorus (2.5-4.9) mg/dl Magnesium (1.7-2.4) mg/dl Total Bilirubin (0.2-1.0) mg/dl Direct Bilirubin (0-0.2) mg/dl AST (13-39) U/L ALT (7-52) U/L Alkaline Phosphatase (34-104) U/L Troponin I 0.11 H* (0-0.04) ng/ml Total Protein (6.0-8.3) gm/dl Albumin (3.4-5.0) gm/dl Globulin (2.5-4.0) gm/dl Albumin/Globulin Ratio (0.9-2) TSH (0.300-4.500) uIu/ml Urine Color Urine Appearance (Clear) Urine pH (4.5-7.5) Ur Specific [place] (1.000-1.030) Urine Protein (Negative) Urine Glucose (UA) (Negative) Urine Ketones (Negative) Urine Blood (Negative) Urine Nitrite (Negative) Urine Bilirubin (Negative) Urine Urobilinogen (Negative) Ur Leukocyte Esterase (Negative) SARS-CoV-2, RNA, NAAT (NEGATIVE) 07/22/21 07/22/21 07/22/21 Range/Units Unknown 20:26 19:10 WBC (4.8-10.8) K/uL RBC (4.7-6.1) M/uL Hgb (14.0-18.0) g/dL Hct (42-52) % MCV (80-100) fL MCH (25-34) pg MCHC (32-36) g/dL RDW Std Deviation (36.4-46.3) fL RDW Coeff of [place] (11.5-14.5) % Plt Count (130-400) K/uL MPV (7.4-10.4) fL Immature Gran % (Auto) % Neut % (Auto) % Lymph % (Auto) % [place] % (Auto) % Eos % (Auto) % Baso % (Auto) % Neut # (Auto) (1.4-6.5) K/uL Lymph # (Auto) (1.2-3.4) K/uL [place] # (Auto) (0.11-0.59) K/uL Eos # (Auto) (0-0.5) K/uL Baso # (Auto) (0-0.2) K/uL Immature Gran # (Auto) (0.00-0.02) K/uL Platelet Estimate (Normal) PT (9.0-12.0) Seconds INR (0.9-1.1) Sodium (136-145) mmol/L Potassium (3.5-5.1) mmol/L Chloride (98-107) mmol/L Carbon Dioxide (21-32) mmol/L Anion Gap (3-11) BUN (6-23) mg/dl Creatinine (0.6-1.4) mg/dl Est Cr Clr Drug Dosing ml/min Est GFR ( Amer) ml/min Est GFR (Non-Af Amer) ml/min BUN/Creatinine Ratio (10-20) Glucose (70-99(Fasting)) mg/dl POC Glucose 306 H* (70-99) mg/dl Calcium (8.5-10.1) mg/dl Phosphorus (2.5-4.9) mg/dl Magnesium (1.7-2.4) mg/dl Total Bilirubin (0.2-1.0) mg/dl Direct Bilirubin (0-0.2) mg/dl AST (13-39) U/L ALT (7-52) U/L Alkaline Phosphatase (34-104) U/L Troponin I 0.12 H* (0-0.04) ng/ml Total Protein (6.0-8.3) gm/dl Albumin (3.4-5.0) gm/dl Globulin (2.5-4.0) gm/dl Albumin/Globulin Ratio (0.9-2) TSH (0.300-4.500) uIu/ml Urine Color Urine Appearance (Clear) Urine pH (4.5-7.5) Ur Specific [place] (1.000-1.030) Urine Protein (Negative) Urine Glucose (UA) (Negative) Urine Ketones (Negative) Urine Blood (Negative) Urine Nitrite (Negative) Urine Bilirubin (Negative) Urine Urobilinogen (Negative) Ur Leukocyte Esterase (Negative) SARS-CoV-2, RNA, NAAT NEGATIVE (NEGATIVE) 07/22/21 07/22/21 07/22/21 Range/Units 16:23 13:55 12:20 WBC (4.8-10.8) K/uL RBC (4.7-6.1) M/uL Hgb (14.0-18.0) g/dL Hct (42-52) % MCV (80-100) fL MCH (25-34) pg MCHC (32-36) g/dL RDW Std Deviation (36.4-46.3) fL RDW Coeff of [place] (11.5-14.5) % Plt Count (130-400) K/uL MPV (7.4-10.4) fL Immature Gran % (Auto) % Neut % (Auto) % Lymph % (Auto) % [place] % (Auto) % Eos % (Auto) % Baso % (Auto) % Neut # (Auto) (1.4-6.5) K/uL Lymph # (Auto) (1.2-3.4) K/uL [place] # (Auto) (0.11-0.59) K/uL Eos # (Auto) (0-0.5) K/uL Baso # (Auto) (0-0.2) K/uL Immature Gran # (Auto) (0.00-0.02) K/uL Platelet Estimate (Normal) PT (9.0-12.0) Seconds INR (0.9-1.1) Sodium 137 (136-145) mmol/L Potassium 4.8 (3.5-5.1) mmol/L Chloride 104 (98-107) mmol/L Carbon Dioxide 23 (21-32) mmol/L Anion Gap 10 (3-11) BUN 82 H (6-23) mg/dl Creatinine 2.93 H (0.6-1.4) mg/dl Est Cr Clr Drug Dosing 21.4 ml/min Est GFR ( Amer) 21.7 ml/min Est GFR (Non-Af Amer) 18.8 ml/min BUN/Creatinine Ratio 28.0 H (10-20) Glucose 216 H (70-99(Fasting)) mg/dl POC Glucose 276 H (70-99) mg/dl Calcium 8.8 (8.5-10.1) mg/dl Phosphorus 3.7 (2.5-4.9) mg/dl Magnesium 2.5 H (1.7-2.4) mg/dl Total Bilirubin 1.8 H (0.2-1.0) mg/dl Direct Bilirubin (0-0.2) mg/dl AST 55 H (13-39) U/L ALT 179 H (7-52) U/L Alkaline Phosphatase 178 H (34-104) U/L Troponin I 0.13 H* (0-0.04) ng/ml Total Protein 5.6 L (6.0-8.3) gm/dl Albumin 3.2 L (3.4-5.0) gm/dl Globulin 2.4 L (2.5-4.0) gm/dl Albumin/Globulin Ratio 1.3 (0.9-2) TSH (0.300-4.500) uIu/ml Urine Color Yellow Urine Appearance Clear (Clear) Urine pH 5.0 (4.5-7.5) Ur Specific [place] 1.017 (1.000-1.030) Urine Protein Negative (Negative) Urine Glucose (UA) 3+ H (Negative) Urine Ketones Negative (Negative) Urine Blood Negative (Negative) Urine Nitrite Negative (Negative) Urine Bilirubin Negative (Negative) Urine Urobilinogen Negative (Negative) Ur Leukocyte Esterase Negative (Negative) SARS-CoV-2, RNA, NAAT (NEGATIVE) 07/22/21 07/22/21 Range/Units 12:20 12:20 WBC 10.42 (4.8-10.8) K/uL RBC 4.03 L (4.7-6.1) M/uL Hgb 13.9 L (14.0-18.0) g/dL Hct 39.7 L (42-52) % MCV 98.5 (80-100) fL MCH 34.5 H (25-34) pg MCHC 35.0 (32-36) g/dL RDW Std Deviation 53.8 H (36.4-46.3) fL RDW Coeff of [place] 14.9 H (11.5-14.5) % Plt Count 109 L (130-400) K/uL MPV 11.9 H (7.4-10.4) fL Immature Gran % (Auto) 0.4 % Neut % (Auto) 76.9 % Lymph % (Auto) 15.3 % [place] % (Auto) 7.2 % Eos % (Auto) 0.1 % Baso % (Auto) 0.1 % Neut # (Auto) 8.02 H (1.4-6.5) K/uL Lymph # (Auto) 1.59 (1.2-3.4) K/uL [place] # (Auto) 0.75 H (0.11-0.59) K/uL Eos # (Auto) 0.01 (0-0.5) K/uL Baso # (Auto) 0.01 (0-0.2) K/uL Immature Gran # (Auto) 0.04 H (0.00-0.02) K/uL Platelet Estimate (Normal) PT 10.8 (9.0-12.0) Seconds INR 1.0 (0.9-1.1) Sodium (136-145) mmol/L Potassium (3.5-5.1) mmol/L Chloride (98-107) mmol/L Carbon Dioxide (21-32) mmol/L Anion Gap (3-11) BUN (6-23) mg/dl Creatinine (0.6-1.4) mg/dl Est Cr Clr Drug Dosing ml/min Est GFR ( Amer) ml/min Est GFR (Non-Af Amer) ml/min BUN/Creatinine Ratio (10-20) Glucose (70-99(Fasting)) mg/dl POC Glucose (70-99) mg/dl Calcium (8.5-10.1) mg/dl Phosphorus (2.5-4.9) mg/dl Magnesium (1.7-2.4) mg/dl Total Bilirubin (0.2-1.0) mg/dl Direct Bilirubin (0-0.2) mg/dl AST (13-39) U/L ALT (7-52) U/L Alkaline Phosphatase (34-104) U/L Troponin I (0-0.04) ng/ml Total Protein (6.0-8.3) gm/dl Albumin (3.4-5.0) gm/dl Globulin (2.5-4.0) gm/dl Albumin/Globulin Ratio (0.9-2) TSH (0.300-4.500) uIu/ml Urine Color Urine Appearance (Clear) Urine pH (4.5-7.5) Ur Specific [place] (1.000-1.030) Urine Protein (Negative) Urine Glucose (UA) (Negative) Urine Ketones (Negative) Urine Blood (Negative) Urine Nitrite (Negative) Urine Bilirubin (Negative) Urine Urobilinogen (Negative) Ur Leukocyte Esterase (Negative) SARS-CoV-2, RNA, NAAT (NEGATIVE)
[2021-07-23 11:09] LABS: Adenovirus F 40/41 PCR Not Detected (NotDetected); Astrovirus PCR Not Detected (NotDetected); Campylobacter PCR Not Detected (NotDetected); Clostridium diff Toxin A/B PCR Not Detected (NotDetected); Cryptosporidium PCR Not Detected (NotDetected); Cyclospora cayetanensis PCR Not Detected (NotDetected); Entamoeba histolytica PCR Not Detected (NotDetected); Enteroaggregative E.coli(EAEC) Not Detected (NotDetected); Enteropathogenic E.coli (EPEC) Not Detected (NotDetected); Enterotoxigenic E.coli (ETEC) Not Detected (NotDetected); Giardia lamblia PCR Not Detected (NotDetected); Norovirus GI/GII PCR Not Detected (NotDetected); Plesiomonas shigelloides PCR Not Detected (NotDetected); Rotavirus A PCR Not Detected (NotDetected); Salmonella PCR Not Detected (NotDetected); Sapovirus PCR Not Detected (NotDetected); Shiga-like Toxin E.coli (STEC) Not Detected (NotDetected); Shigella/Enteroinvasive E.coli Not Detected (NotDetected); Vibrio cholerae PCR Not Detected (NotDetected); Vibrio species PCR Not Detected (NotDetected); Yersinia enterocolitica PCR Not Detected (NotDetected)
--- NOTE | 2021-07-23 14:46 | Hospitalist Progress Note ---
Date of Service July 23, 2021 Assessment & Plan (1) Syncope: Plan: -[place] dizzy following getting out of from sitting position and missed a chair to hold before falling, no loss of consciousness - Possibly mechanical fall vs syncopal episode vs stroke -pacemaker ICD interrogation is normal and MRI can be done with this type of pacemaker -Appreciate cardiology input and recommendation - EKG reviewed, QTC is prolonged -Initial CT without contrast unremarkable and repeat CT without contrast did not show any significant finding/change - Fall precautions, PT/OT consults -The patient remained stable and without any acute symptoms (2) DM type 2 (diabetes mellitus, type 2): Plan: -May continue glargine insulin, 10 units every morning, hold repaglinide and sitagliptin - Concern that he may have been acutely hypoglycemic this morning and could have caused weakness and fall due to recent changes in his antihyperglycemic medications. -Glucose on arrival was 216. -Lantus was recently increased within the past week from 10 units to 14 units, today was the first time he took 14 unit dose. -Also today was the first day that he took repaglinide x2 tablets due to glucose being greater than 250 this morning. He is also on Januvia. -Continue Lantus 10 units every morning, hold other p.o. medications. - ISS with Accu-Cheks ACHS -Last A1c = 7.9 on 05/11/2021 -Had foot injection in the left by air press operator on 06/16, likely leading to elevated blood glucoses, he was started on Prandin afterwards for glucoses greater than 200-250 by his PCP. -Continue SSI Interstitial lung disease/amiodarone induced lung disease Has been under care of demand manager in [facility] He was also seen by pulmonology on 06/18/21 and was started on a long prednisone taper where he took 40 mg for 1 month with taper by 10 mg every 2 weeks until off. Currently is on 30 mg daily (cont until next then reduces to 20 mg) From tomorrow prednisone will be 20 mg a day (3) Transaminitis: Plan: - Outpatient labs from mid April were reviewed, within normal limits: Today AST = 55, ALT = 179, alk phos = 178, total bilirubin 1.8 up from 1.1. - Pt describes new onset swallowing dysfunction - GI consulted-appreciate input and recommendation - Continue on prednisone 30 mg daily -Denies any abdominal symptoms (4) Elevated troponin: Plan: Doubt any ACS (5) Ischemic cardiomyopathy: Plan: - Trend troponin, initially elevated at 0.13 - cardiology consulted - 2D echo ordered-Last 2D echo reviewed on EMR through [facility] on 01/17/2021 showing EF of 25 to 29%, large sized apical, septal, inferior, posterior and lateral wall motion abnormality with hypokinesis to dyskinesis of the segments, left ventricular diastolic function is moderately abnormal (grade 2), mild aortic va lve regurg, mild aortic valve sclerosis, mild MR, mild TR, proximal ascending thoracic aorta is mildly enlarged. - Follows with Dr. Billings as an outpatient -Echo showedLV systolic function is severely reduced with EF 30 to 35%, moderate concentric hypertrophy in segments with normal wall motion, large sized apical, septal, inferior, posterior and lateral wall motion abnormality with hypokinesis to akinesis of the segments, abdominal apical septal wall motion likely consistent with pacemaker activation, mild to moderate aortic regurgitation, mild MR, mild to moderate TR, Doppler findings do not suggest pulmonary hypertension -ICD interrogation is normal -No cardiac symptoms reported today (6) A-fib: Plan: - parosysmal, cont rate control. Not on formal anticoagulation but takes baby asa every other day. (7) CAD (coronary artery disease): Plan: - History of such x3 vessel disease - Cont asa QOD, last took it this morning. Not on other anticoagulation with parosysmal afib. - Cont statin, lasix, imdur, metoprolol succinate (8) Pacemaker: Plan: -Interrogate pacemaker is normal (9) HTN (hypertension): Plan: - Cont meds as above (10) Hyperlipidemia: Plan: - Cont meds as above (11) Stage 4 chronic kidney disease: Plan: - BUN 82, Cr. 2.93 on admission, stable - Avoid nephrotoxins, renally reduce medications (12) Hypothyroidism: Plan: - Cont levothyroxine DVT ppx: - teds, scds, cont asa, add heparin subq CODE: DNR/DNI Dispo: From home, likely to remain in the hospital x 1-2 days Admission and Anticipated Discharge Date Admission Date: July 22, 2021 Subjective 07/23/2021 The patient was seen and examined in telemetry unit He was admitted with the syncopal episode and hitting his back of the head without any loss of consciousness Prior to the episode he was sitting on a chair and was trying to get his second cup of coffee in a restaurant when he fell without any warning but did have lightheadedness prior to the fall Denies any symptoms as of this morning Review of Systems Review of Systems: All systems reviewed and are unremarkable except as noted below Neurologic: Alert, awake and oriented x3. Denies any headache and or any other symptoms Physical Exam Physical Exam: Sitting on a chair without any acute distress Constitutional: well developed, well nourished and + obese; not ill appearing Eyes: PERRL, conjunctivae normal, anicteric sclerae ENMT: external ear and nose normal, oropharynx normal Neck: trachea midline, no thyromegaly Respiratory: no respiratory distress Auscultation: + diminished lung sounds and + crackles (Minimal crackles at the bases) Cardiovascular: Rate/Rhythm: regular rate and regular rhythm; not tachycardic Heart Sounds: normal S1 and normal S2; no murmur Extremities: + edema (Trace edema bilaterally) Gastrointestinal (Abdomen): Inspection/Auscultation: normal bowel sounds; abdomen not distended Percussion/Palpation: abdomen soft; abdomen nontender Musculoskeletal: No acute arthritis in any joint Neurologic: Alert, awake and oriented x3. No focal sensory and motor deficit appreciated Results & Data Results & Data ([facility]) Vital Signs (Past 12 Hours) Vital Signs Temp Pulse Pulse Resp BP Pulse Ox 07/23/21 12:16 36.5 C 91 H 16 119/75 94 07/23/21 11:02 98 07/23/21 09:56 63 16 102/69 98 07/23/21 09:55 63 16 114/74 97 07/23/21 08:00 36.5 C 60 60 16 124/65 96 07/23/21 04:05 36.6 C 62 18 115/62 95 Laboratory Results Short CBC 07/23/21 Range/Units 03:00 WBC 7.56 (4.8-10.8) K/uL Hgb 13.1 L (14.0-18.0) g/dL Hct 38.8 L (42-52) % Plt Count 95 L (130-400) K/uL BMP 07/23/21 03:00 Sodium 136 Potassium 4.3 Chloride 104 Carbon Dioxide 25 BUN 74 H Creatinine 2.78 H Glucose 163 H Calcium 8.4 L Cardiac Enzymes 07/22/21 07/23/21 Range/Units 19:10 03:00 Troponin I 0.12 H* 0.11 H* (0-0.04) ng/ml Liver Function 07/23/21 Range/Units 03:00 Total Bilirubin 1.3 H (0.2-1.0) mg/dl Direct Bilirubin 0.5 H (0-0.2) mg/dl AST 51 H (13-39) U/L ALT 161 H (7-52) U/L Alkaline Phosphatase 140 H (34-104) U/L Albumin 3.0 L (3.4-5.0) gm/dl Medications Administered Current Inpatient Medications Acetaminophen (Acetaminophen 325 Mg Tab) 650 mg PO Q4H PRN PRN Reason: Moderate Pain Stop: 08/21/21 16:23 Allopurinol (Allopurinol 100 Mg Tab) 200 mg PO DAILY TIMBO Stop: 08/22/21 08:59 Last Admin: 07/23/21 08:00 Dose: 200 mg Documented by: Amiodarone HCl (Amiodarone 200 Mg Tab) 200 mg PO DAILY TIMBO Stop: 08/22/21 08:59 Last Admin: 07/23/21 08:01 Dose: 200 mg Documented by: Aspirin (Aspirin 81 Mg Ectab) 81 mg PO DAILY TIMBO Stop: 08/22/21 08:59 Last Admin: 07/23/21 08:00 Dose: 81 mg Documented by: Atorvastatin Calcium (Atorvastatin 40 Mg Tab) 80 mg PO PM TIMBO Stop: 08/21/21 20:59 Last Admin: 07/22/21 20:39 Dose: 80 mg Documented by: Cyanocobalamin (Cyanocobalamin (B-12) 500 Mcg Tablet) 1,500 mcg PO QAM TIMBO Stop: 08/22/21 08:59 Last Admin: 07/23/21 08:03 Dose: 1,500 mcg Documented by: Dextrose (Dextrose 50% 50 Ml Syringe) 25 - 50 ml IV UD PRN; Protocol PRN Reason: Hypoglycemia Protocol Stop: 08/21/21 16:23 Furosemide (Furosemide 80 Mg Tab) 80 mg PO MoTh TIMBO Stop: 08/25/21 08:59 Furosemide (Furosemide 40 Mg Tab) 40 mg PO SuTuWeFrSa TIMBO Stop: 08/22/21 08:59 Last Admin: 07/23/21 08:03 Dose: 40 mg Documented by: Gabapentin (Gabapentin 400 Mg Cap) 400 mg PO HS [facility] Stop: 08/21/21 20:59 Last Admin: 07/22/21 20:39 Dose: 400 mg Documented by: Glucagon (Glucagon For Inj 1 Mg Vial) 1 mg SQ UD PRN; Protocol PRN Reason: Hypoglycemia Protocol Stop: 08/21/21 16:23 Glucose (Glucose 10 Tabs/Tube) 4 - 8 tabs PO UD PRN; Protocol PRN Reason: Hypoglycemia Protocol Stop: 08/21/21 16:23 Glucose (Glucose 40% Gel 15 Gm Tube) 15 - 30 gm PO UD PRN; Protocol PRN Reason: Hypoglycemia Protocol Stop: 08/21/21 16:23 Heparin Sodium (Porcine) (Heparin Sod 5,000 Unit/0.5 Ml Vial) 5,000 units SQ Q12 TIMBO Stop: 08/21/21 20:59 Last Admin: 07/23/21 08:03 Dose: 5,000 units Documented by: Insulin Aspart (Insulin Aspart Per Unit) 0 units SC ACHS [facility] Stop: 08/21/21 16:29 Last Admin: 07/23/21 11:40 Dose: 7 units Documented by: Insulin Glargine (Insulin Glargine Solostar 100 Units/Ml 3 Ml Pen) 10 units SQ QAM [facility] Stop: 08/22/21 08:59 Last Admin: 07/23/21 08:13 Dose: 10 units Documented by: Isosorbide Mononitrate (Isosorbide [place] Extended Rel 60 Mg Tabcr) [facility] [place] Stop: 08/22/21 08:59 Last Admin: 07/23/21 08:00 Dose: 60 mg Documented by: Levothyroxine Sodium (Levothyroxine Sodium 125 Mcg Tablet) 125 mcg PO DAILY@0600 [facility] Stop: 08/22/21 05:59 Last Admin: 07/23/21 05:49 Dose: 125 mcg Documented by: Metoprolol Succinate (Metoprolol Succ 50mg Ext Rel Tab) 100 mg PO QAM [facility] Stop: 08/22/21 08:59 Last Admin: 07/23/21 08:03 Dose: 100 mg Documented by: Miscellaneous (Carbohydrates For Hypoglycemia ) 15 - 30 gm PO UD PRN PRN Reason: Hypoglycemia Protocol Stop: 08/21/21 16:23 Ondansetron HCl (Ondansetron Inj 2 Mg/Ml 2 Ml Vial) 4 mg IV Q4H PRN PRN Reason: Nausea And Vomiting Stop: 08/21/21 16:23 Prednisone (Prednisone 10 Mg Tablet) 30 mg PO DAILY TIMBO; Taper Stop: 10/15/21 08:59 Last Admin: 07/23/21 08:01 Dose: 30 mg Documented by: (1) CAD (coronary artery disease) Associated angina: without angina Coronary Disease-Associated Artery/Lesion type: unspecified vessel or lesion type [place] vs. transplanted heart: [place] heart Qualified Code(s): I25.10 - Atherosclerotic heart disease of [place] coronary artery without angina pectoris
[2021-07-23] MEDS: GABAPENTIN 400 MG CAP PO SCH (20:50)
[2021-07-23] MEDS: ATORVASTATIN 40 MG TAB PO SCH (20:50)
[2021-07-24] MEDS: LEVOTHYROXINE SODIUM 125 MCG TABLET PO SCH (05:37)
[2021-07-24 07:17] LABS: Albumin Globulin Ratio 1.4 (0.9-2); Albumin Level 3.3 gm/dl (3.4-5.0); BUN Creatinine Ratio 29.7 (10-20); Bilirubin,Total 1.8 mg/dl (0.2-1.0); Calcium 8.8 mg/dl (8.5-10.1); Creatinine Clr Calc Pharmacy 22.8 ml/min; Est GFR (African American) 26.5 ml/min; Est GFR (Non-African American) 22.8 ml/min; Globulin 2.4 gm/dl (2.5-4.0); Magnesium 2.5 mg/dl (1.7-2.4); Phosphorus 3.7 mg/dl (2.5-4.9); Potassium 4.4 mmol/L (3.5-5.1); Total Protein 5.7 gm/dl (6.0-8.3)
[2021-07-24] MEDS: INSULIN ASPART PER UNIT SC SCH ×2 (08:00→12:15)
[2021-07-24 08:01] LABS: Hematocrit (blood only) 43.4 % (42-52); Mean Corpuscular Hgb Conc 34.6 g/dL (32-36); Mean Corpuscular Volume 101.2 fL (80-100); Mean Platelet Volume 12.4 fL (7.4-10.4); Platelet Count 116 K/uL (130-400); RDW Coefficient of Variation 15.2 % (11.5-14.5); RDW Standard Deviation 55.6 fL (36.4-46.3); Red Blood Count 4.29 M/uL (4.7-6.1); White Blood Count 9.14 K/uL (4.8-10.8)
[2021-07-24 08:17] LABS: Basophils # (auto) 0.01 K/uL (0-0.2); Basophils % (auto) 0.1 %; Eosinophils # (auto) 0.02 K/uL (0-0.5); Eosinophils % (auto) 0.2 %; Immature Granulocytes # (auto) 0.02 K/uL (0.00-0.02); Immature Granulocytes % (auto) 0.2 %; Lymphocytes # (auto) 2.02 K/uL (1.2-3.4); Lymphocytes % (auto) 22.1 %; Monocytes # (auto) 0.96 K/uL (0.11-0.59); Monocytes % (auto) 10.5 %; Neutrophils # (auto) 6.11 K/uL (1.4-6.5); Neutrophils % (auto) 66.9 %; RBC Morphology Unremarkable
[2021-07-24] MEDS: HEPARIN SOD 5,000 UNIT/0.5 ML VIAL SQ SCH (08:46)
[2021-07-24] MEDS: AMIODARONE 200 MG TAB PO SCH (08:46)
[2021-07-24] MEDS: predniSONE 10 MG TABLET PO SCH (08:46)
[2021-07-24] MEDS: METOPROLOL SUCC 50MG EXT REL TAB PO SCH (08:47)
[2021-07-24] MEDS: allopurinoL 100 MG TAB PO SCH (08:47)
[2021-07-24] MEDS: FUROSEMIDE 40 MG TAB PO SCH (08:47)
[2021-07-24] MEDS: ASPIRIN 81 MG ECTAB PO SCH (08:47)
[2021-07-24] MEDS: CYANOCOBALAMIN (B-12) 500 MCG TABLET PO SCH (08:47)
[2021-07-24] MEDS: ISOSORBIDE MONO EXTENDED REL 60 MG TABCR PO SCH (08:47)
[2021-07-24] MEDS: INSULIN GLARGINE SOLOSTAR 100 UNITS/ML 3 ML PEN SQ SCH (09:50)
--- NOTE | 2021-07-24 12:26 | Hospitalist Progress Note ---
Date of Service July 24, 2021 Assessment & Plan (1) Syncope: Plan: -[place] dizzy following getting out of from sitting position and missed a chair to hold before falling, no loss of consciousness - Possibly mechanical fall vs syncopal episode vs stroke -pacemaker ICD interrogation is normal and MRI can be done with this type of pacemaker -Appreciate cardiology input and recommendation - EKG reviewed, QTC is prolonged -Initial CT without contrast unremarkable and repeat CT without contrast did not show any significant finding/change - Fall precautions, PT/OT consults -The patient remained stable and without any acute symptoms -Denies any symptoms and has had physical therapy -Moving around in the room without any symptoms and will be discharged home this afternoon (2) DM type 2 (diabetes mellitus, type 2): Plan: -May continue glargine insulin, 10 units every morning, hold repaglinide and sitagliptin - Concern that he may have been acutely hypoglycemic this morning and could have caused weakness and fall due to recent changes in his antihyperglycemic medications. -Glucose on arrival was 216. -Lantus was recently increased within the past week from 10 units to 14 units, today was the first time he took 14 unit dose. -Also today was the first day that he took repaglinide x2 tablets due to glucose being greater than 250 this morning. He is also on Januvia. -Continue Lantus 10 units every morning, hold other p.o. medications. - ISS with Accu-Cheks ACHS -Last A1c = 7.9 on 05/11/2021 -Had foot injection in the left by patient care assistant on 06/16, likely leading to elevated blood glucoses, he was started on Prandin afterwards for glucoses greater than 200-250 by his PCP. -Continue SSI Interstitial lung disease/amiodarone induced lung disease Has been under care of business taxes specialist in [facility] He was also seen by pulmonology on 06/18/21 and was started on a long prednisone taper where he took 40 mg for 1 month with taper by 10 mg every 2 weeks until off. Currently is on 30 mg daily (cont until next then reduces to 20 mg) From tomorrow prednisone will be 20 mg a day Was advised to finish the course of prednisone as advised by the business taxes specialist (3) Transaminitis: Plan: - Outpatient labs from mid April were reviewed, within normal limits: Today AST = 55, ALT = 179, alk phos = 178, total bilirubin 1.8 up from 1.1. - Pt describes new onset swallowing dysfunction - GI consulted-appreciate input and recommendation - Continue on prednisone 30 mg daily -Denies any abdominal symptoms -Was advised to keep appointment with GI as an outpatient (4) Elevated troponin: Plan: Doubt any ACS (5) Ischemic cardiomyopathy: Plan: - Trend troponin, initially elevated at 0.13 - cardiology consulted - 2D echo ordered-Last 2D echo reviewed on EMR through [facility] on 01/17/2021 showing EF of 25 to 29%, large sized apical, septal, inferior, posterior and lateral wall motion abnormality with hypokinesis to dyskinesis of the segments, left v entricular diastolic function is moderately abnormal (grade 2), mild aortic valve regurg, mild aortic valve sclerosis, mild MR, mild TR, proximal ascending thoracic aorta is mildly enlarged. - Follows with Dr. Billings as an outpatient -Echo showedLV systolic function is severely reduced with EF 30 to 35%, moderate concentric hypertrophy in segments with normal wall motion, large sized apical, septal, inferior, posterior and lateral wall motion abnormality with hypokinesis to akinesis of the segments, abdominal apical septal wall motion likely consistent with pacemaker activation, mild to moderate aortic regurgitation, mild MR, mild to moderate TR, Doppler findings do not suggest pulmonary hypertension -ICD interrogation is normal -No cardiac symptoms reported and will be discharged home this afternoon (6) A-fib: Plan: - parosysmal, cont rate control. Not on formal anticoagulation but takes baby asa every other day. (7) CAD (coronary artery disease): Plan: - History of such x3 vessel disease - Cont asa QOD, last took it this morning. Not on other anticoagulation with parosysmal afib. - Cont statin, lasix, imdur, metoprolol succinate (8) Pacemaker: Plan: -Interrogate pacemaker is normal (9) HTN (hypertension): Plan: - Cont meds as above (10) Hyperlipidemia: Plan: - Cont meds as above (11) Stage 4 chronic kidney disease: Plan: - BUN 82, Cr. 2.93 on admission, stable - Avoid nephrotoxins, renally reduce medications (12) Hypothyroidism: Plan: - Cont levothyroxine DVT ppx: - teds, scds, cont asa, add heparin subq CODE: DNR/DNI Will be discharged home this afternoon Admission and Anticipated Discharge Date Admission Date: July 22, 2021 Subjective 07/23/2021 The patient was seen and examined in telemetry unit He was admitted with the syncopal episode and hitting his back of the head without any loss of consciousness Prior to the episode he was sitting on a chair and was trying to get his second cup of coffee in a restaurant when he fell without any warning but did have lightheadedness prior to the fall Denies any symptoms as of this morning 07/24/2021 The patient was seen and examined in telemetry unit He is out of bed on a chair and does not have any complaints and wants to go home He has had physical therapy and recommended home Denies any chest pain, shortness of breath, palpitation, any abdominal pain nausea or vomiting Review of Systems Review of Systems: All systems reviewed and are unremarkable except as noted below Neurologic: Alert, awake and oriented x3. Denies any headache and or any other symptoms Physical Exam Physical Exam: Sitting on a chair without any acute distress Constitutional: well developed, well nourished and + obese; not ill appearing Eyes: PERRL, conjunctivae normal, anicteric sclerae ENMT: external ear and nose normal, oropharynx normal Neck: trachea midline, no thyromegaly Respiratory: no respiratory distress Auscultation: + diminished lung sounds and + crackles (Minimal crackles at the bases) Cardiovascular: Rate/Rhythm: regular rate and regular rhythm; not tachycardic Heart Sounds: normal S1 and normal S2; no murmur Extremities: + edema (Trace edema bilaterally) Gastrointestinal (Abdomen): Inspection/Auscultation: normal bowel sounds; abdomen not distended Percussion/Palpation: abdomen soft; abdomen nontender Musculoskeletal: No acute arthritis in any joint Neurologic: Alert, awake and oriented x3. No focal sensory or motor deficit appreciated Results & Data Results & Data ([facility]) Vital Signs (Past 12 Hours) Vital Signs Temp Pulse Pulse Resp BP Pulse Ox 07/24/21 11:06 36.6 C 62 18 112/61 98 07/24/21 08:21 37 C 66 16 113/63 96 07/24/21 04:21 36.7 C 88 18 118/77 96 07/24/21 01:40 60 Laboratory Results Short CBC 07/24/21 Range/Units 06:19 WBC 9.14 (4.8-10.8) K/uL Hgb 15.0 (14.0-18.0) g/dL Hct 43.4 (42-52) % Plt Count 116 L (130-400) K/uL BMP 07/24/21 06:19 Sodium 137 Potassium 4.4 Chloride 103 Carbon Dioxide 28 BUN 74 H Creatinine 2.49 H Glucose 94 Calcium 8.8 Liver Function 07/24/21 Range/Units 06:19 Total Bilirubin 1.8 H (0.2-1.0) mg/dl AST 58 H (13-39) U/L ALT 170 H (7-52) U/L Alkaline Phosphatase 129 H (34-104) U/L Albumin 3.3 L (3.4-5.0) gm/dl Medications Administered Current Inpatient Medications Acetaminophen (Acetaminophen 325 Mg Tab) 650 mg PO Q4H PRN PRN Reason: Moderate Pain Stop: 08/21/21 16:23 Allopurinol (Allopurinol 100 Mg Tab) 200 mg PO DAILY [facility] Stop: 08/22/21 08:59 Last Admin: 07/24/21 08:47 Dose: 200 mg Documented by: Amiodarone HCl (Amiodarone 200 Mg Tab) 200 mg PO DAILY [facility] Stop: 08/22/21 08:59 Last Admin: 07/24/21 08:46 Dose: 200 mg Documented by: Aspirin (Aspirin 81 Mg Ectab) 81 mg PO DAILY [facility] Stop: 08/22/21 08:59 Last Admin: 07/24/21 08:47 Dose: 81 mg Documented by: Atorvastatin Calcium (Atorvastatin 40 Mg Tab) 80 mg PO PM [facility] Stop: 08/21/21 20:59 Last Admin: 07/23/21 20:50 Dose: 80 mg Documented by: Cyanocobalamin (Cyanocobalamin (B-12) 500 Mcg Tablet) 1,500 mcg PO QAM [facility] Stop: 08/22/21 08:59 Last Admin: 07/24/21 08:47 Dose: 1,500 mcg Documented by: Dextrose (Dextrose 50% 50 Ml Syringe) 25 - 50 ml IV UD PRN; Protocol PRN Reason: Hypoglycemia Protocol Stop: 08/21/21 16:23 Furosemide (Furosemide 80 Mg Tab) 80 mg PO MoTh [facility] Stop: 08/25/21 08:59 Furosemide (Furosemide 40 Mg Tab) 40 mg PO SuTuWeFrSa [facility] Stop: 08/22/21 08:59 Last Admin: 07/24/21 08:47 Dose: 40 mg Documented by: Gabapentin (Gabapentin 400 Mg Cap) 400 mg PO HS [facility] Stop: 08/21/21 20:59 Last Admin: 07/23/21 20:50 Dose: 400 mg Documented by: Glucagon (Glucagon For Inj 1 Mg Vial) 1 mg SQ UD PRN; Protocol PRN Reason: Hypoglycemia Protocol Stop: 08/21/21 16:23 Glucose (Glucose 10 Tabs/Tube) 4 - 8 tabs PO UD PRN; Protocol PRN Reason: Hypoglycemia Protocol Stop: 08/21/21 16:23 Glucose (Glucose 40% Gel 15 Gm Tube) 15 - 30 gm PO UD PRN; Protocol PRN Reason: Hypoglycemia Protocol Stop: 08/21/21 16:23 Heparin Sodium (Porcine) (Heparin Sod 5,000 Unit/0.5 Ml Vial) 5,000 units SQ Q12 [facility] Stop: 08/21/21 20:59 Last Admin: 07/24/21 08:46 Dose: 5,000 units Documented by: Insulin Aspart (Insulin Aspart Per Unit) 0 units SC ACHS [facility] Stop: 08/21/21 16:29 Last Admin: 07/24/21 12:15 Dose: 6 units Documented by: Insulin Glargine (Insulin Glargine Solostar 100 Units/Ml 3 Ml Pen) 10 units SQ QAM [facility] Stop: 08/22/21 08:59 Last Admin: 07/24/21 09:50 Dose: 10 units Documented by: Isosorbide Mononitrate (Isosorbide [place] Extended Rel 60 Mg Tabcr) [facility] [place] Stop: 08/22/21 08:59 Last Admin: 07/24/21 08:47 Dose: 60 mg Documented by: Levothyroxine Sodium (Levothyroxine Sodium 125 Mcg Tablet) 125 mcg PO DAILY@0600 [facility] Stop: 08/22/21 05:59 Last Admin: 07/24/21 05:37 Dose: 125 mcg Documented by: Metoprolol Succinate (Metoprolol Succ 50mg Ext Rel Tab) [facility] [place] Stop: 08/22/21 08:59 Last Admin: 07/24/21 08:47 Dose: 100 mg Documented by: Miscellaneous (Carbohydrates For Hypoglycemia ) 15 - 30 gm PO UD PRN PRN Reason: Hypoglycemia Protocol Stop: 08/21/21 16:23 Ondansetron HCl (Ondansetron Inj 2 Mg/Ml 2 Ml Vial) 4 mg IV Q4H PRN PRN Reason: Nausea And Vomiting Stop: 08/21/21 16:23 Prednisone (Prednisone 10 Mg Tablet) 30 mg PO DAILY TIMBO; Taper Stop: 10/15/21 08:59 Last Admin: 07/24/21 08:46 Dose: 30 mg Documented by: (1) CAD (coronary artery disease) Associated angina: without angina Coronary Disease-Associated Artery/Lesion type: unspecified vessel or lesion type [place] vs. transplanted heart: [place] heart Qualified Code(s): I25.10 - Atherosclerotic heart disease of [place] coronary artery without angina pectoris
--- NOTE | 2021-07-25 07:50 | Discharge Summary ---
Date of Service July 25, 2021 Admission HPI Per Admitting Provider This is a 86 yo M with PMhx of chronic ischemic cardiomyopathy with EF: 25-29%, CAD s/p CABG x 3, h/o VT, s/p pacer/defibrillator, Paroxysmal atrial fibrillation, CKD IV, DM II, HTN, HLD, TIA, hypothyroidism, gout, who presents after having sustained a fall earlier today. He was at [facility] with his who is present at bedside. He reports getting up to get a second cup of coffee and then stumbled, falling and hitting the back of his head after attempting to catch himself on a nearby bench, he denies any dizziness or lightheadedness or other prodrome prior to this event. He did not trip over anything specifically. Patient does note that he has had ongoing worsening weakness in his lower legs for the past 2 days. Does not use ambulatory device at baseline, but noticed his right leg being more weak than the left. He denies any changes in vision, slurred speech, weakness, seizure- like activity, or bowel or bladder incontinence. Patient also notes that he has had some issues with swallowing breakfast earlier today prior to the event, where he was eating oatmeal and had difficulty with a feeling of delayed swallowing when he was drinking milk, and has never noticed this before. He did take all his morning medications includes new changes to his diabetic medications due to elevated glucose likely secondary to being on prednisone for lung issues. His Lantus was increased within the past week from 10 units to12 U a few days ago, and to 14 units today which he took this morning, and also started repaglinide x2 doses today for the first time because his sugar was greater than 250. He is also on Januvia at baseline. EMS was called and picked him up at [facility] and was brought to the ER. There is not documented blood glucose to see if this was acutely low at the restaurant by my review of records. Upon blood work obtained here he was found to have a glucose of 261. It is also noted that he has an elevated troponin of 0.13 however has CKD and has chronically elevated troponin. He denies any chest pain, shortness of breath suggestive of ACS. His liver enzymes are acutely elevated, but denies any abdominal complaints, pain, nausea, or vomiting. Admission Exam Per Admitting Provider Physical Exam: General: awake, alert, no apparent distress Head: Normocephalic, atraumatic ENT: PERRL, EOMI, no pharyngeal exudate, mucous membranes moist Chest: Clear to auscultation, on room air, no adventitious breath sounds Cardiac: Regular rate and rhythm, no murmur, no JVD, normal peripheral pulses, good capillary refill Abdominal: NABS x 4 quadrants, soft, nondistended, nontender to palpation, no rebound or guarding Extremities: Normal inspection, no peripheral edema or erythema, calfs nontender to palpation Psych: Normal mood and affect Neuro: AAO x 3, strength intact bilaterally and rated 5/5, no motor deficits, speech is clear, no peripheral sensory deficits Principal Diagnosis Syncopal episode, ischemic cardiomyopathy, atrial fibrillation, type 2 diabetes, transaminitis, chronic kidney disease, hypothyroidism and hypertension Discharge Exam Sitting on a chair without any acute distress Constitutional well developed, well nourished and + obese; not ill appearing Eyes PERRL, conjunctivae normal, anicteric sclerae ENMT external ear and nose normal, oropharynx normal Neck trachea midline, no thyromegaly Respiratory no respiratory distress Auscultation: + diminished lung sounds and + crackles (Minimal crackles at the bases) Cardiovascular Rate/Rhythm: regular rate and regular rhythm; not tachycardic Heart Sounds: normal S1 and normal S2; no murmur Extremities: + edema (Trace edema bilaterally) Gastrointestinal (Abdomen) Inspection/Auscultation: normal bowel sounds; abdomen not distended Percussion/Palpation: abdomen soft; abdomen nontender Discharge Data Allergies Allergy/AdvReac Type Severity Reaction Status Date / Time amlodipine AdvReac Mild INSOMNIA Verified 07/22/21 12:28 Novocain SOLN Allergy Fever Uncoded 07/22/21 12:28 Consultations 07/22/21 13:29 ED Decision to Admit Stat 07/22/21 16:24 Consult Cardiology Routine Consult Gastroenterology Routine Ordered Studies 07/22/21 11:17 CT cervical spine wo con Stat CT head/brain wo con Stat 07/22/21 13:29 US gallbladder Stat 07/23/21 08:00 CT head/brain wo con Routine Hospital Course (1) Syncope: -[place] dizzy following getting out of from sitting position and missed a chair to hold before falling, no loss of consciousness - Possibly mechanical fall vs syncopal episode vs stroke -pacemaker ICD interrogation is normal and MRI can be done with this type of pacemaker -Appreciate cardiology input and recommendation - EKG reviewed, QTC is prolonged -Initial CT without contrast unremarkable and repeat CT without contrast did not show any significant finding/change - Fall precautions, PT/OT consults -The patient remained stable and without any acute symptoms -Denies any symptoms and has had physical therapy -Moving around in the room without any symptoms and will be discharged home this afternoon (2) DM type 2 (diabetes mellitus, type 2): -May continue glargine insulin, 10 units every morning, hold repaglinide and sitagliptin - Concern that he may have been acutely hypoglycemic this morning and could have caused weakness and fall due to recent changes in his antihyperglycemic medi cations. -Glucose on arrival was 216. -Lantus was recently increased within the past week from 10 units to 14 units, today was the first time he took 14 unit dose. -Also today was the first day that he took repaglinide x2 tablets due to glucose being greater than 250 this morning. He is also on Januvia. -Continue Lantus 10 units every morning, hold other p.o. medications. - ISS with Accu-Cheks ACHS -Last A1c = 7.9 on 05/11/2021 -Had foot injection in the left by harmonic analyst on 06/16, likely leading to elevated blood glucoses, he was started on Prandin afterwards for glucoses greater than 200-250 by his PCP. -Continue SSI Interstitial lung disease/amiodarone induced lung disease Has been under care of layer off in [facility] system He was also seen by pulmonology on 06/18/21 and was started on a long prednisone taper where he took 40 mg for 1 month with taper by 10 mg every 2 weeks until off. Currently is on 30 mg daily (cont until next then reduces to 20 mg) From tomorrow prednisone will be 20 mg a day Was advised to finish the course of prednisone as advised by the layer off (3) Transaminitis: - Outpatient labs from mid April were reviewed, within normal limits: Today AST = 55, ALT = 179, alk phos = 178, total bilirubin 1.8 up from 1.1. - Pt describes new onset swallowing dysfunction - GI consulted-appreciate input and recommendation - Continue on prednisone 30 mg daily -Denies any abdominal symptoms -Was advised to keep appointment with GI as an outpatient (4) Elevated troponin: Doubt any ACS (5) Ischemic cardiomyopathy: - Trend troponin, initially elevated at 0.13 - cardiology consulted - 2D echo ordered-Last 2D echo reviewed on EMR through [facility] on 01/17/2021 showing EF of 25 to 29%, large sized apical, septal, inferior, posterior and lateral wall motion abnormality with hypokinesis to dyskinesis of the segments, left ventricular diastolic function is moderately abnormal (grade 2), mild aortic valve regurg, mild aortic valve sclerosis, mild MR, mild TR, proximal ascending thoracic aorta is mildly enlarged. - Follows with Dr. Billings as an outpatient -Echo showedLV systolic function is severely reduced with EF 30 to 35%, moderate concentric hypertrophy in segments with normal wall motion, large sized apical, septal, inferior, posterior and lateral wall motion abnormality with hypokinesis to akinesis of the segments, abdominal apical septal wall motion likely consistent with pacemaker activation, mild to moderate aortic regurgitation, mild MR, mild to moderate TR, Doppler findings do not suggest pulmonary hypertension -ICD interrogation is normal -No cardiac symptoms reported and will be discharged home this afternoon (6) A-fib: - parosysmal, cont rate control. Not on formal anticoagulation but takes baby asa every other day. (7) CAD (coronary artery disease): - History of such x3 vessel disease - Cont asa QOD, last took it this morning. Not on other anticoagulation with parosysmal afib. - Cont statin, lasix, imdur, metoprolol succinate (8) Pacemaker: -Interrogate pacemaker is normal (9) HTN (hypertension): - Cont meds as above (10) Hyperlipidemia: - Cont meds as above (11) Stage 4 chronic kidney disease: - BUN 82, Cr. 2.93 on admission, stable - Avoid nephrotoxins, renally reduce medications (12) Hypothyroidism: - Cont levothyroxine DVT ppx: - teds, scds, cont asa, add heparin subq CODE: DNR/DNI Will be discharged home this afternoon Total Time Total Time Spent Total Time Spent (In Minutes): 35 minutes Discharge Plan Discharge Items Patient Disposition: Home - Self-Care Reason For Visit: SYNCOPAL EPISODE Discharge Diagnosis: Syncopal episode, ischemic cardiomyopathy, atrial fibrillation, type 2 diabetes, transaminitis, chronic kidney disease, hypothyroidism and hypertension Condition on Discharge: Good Activity: Resume your previous activity Non-emergency contact: Primary Care Provider Call non-emergency contact if: you have any medication questions and your symptoms worsen Follow-up/Referrals: Blanca Orellana MD [Primary Care Provider] - (Your PCPs office will call with an appointment within 7 days for a follow-up) Diet: Carb Consistent or DM2 and Heart Healthy Addtl Attending Provider Instructions: Please take precautions to avoid fall No change in your current medications except hold your statin until your LFTs improve or advised by your PCP to restart Please keep appointments with your healthcare providers Pending Studies at Discharge: Yes Studies:: Serology and immunology for elevated liver enzymes Stand-Alone Forms: My [employer], Smoking Cessation Medications and DC Order Prescriptions: Continued isosorbide mononitrate 30 mg Tablet Extended Release 24 Hr 60 mg PO QAM RF: 0 metoprolol succinate 100 mg Tablet Extended Release 24 Hr 100 mg PO QAM RF: 0 gabapentin 400 mg Capsule 400 mg PO HS RF: 0 allopurinol 100 mg Tablet 200 mg PO DAILY RF: 0 aspirin 81 mg Tablet,Delayed Release (Dr/Ec) 81 mg PO UD RF: 0 cyanocobalamin (vitamin B-12) 500 mcg Tablet 1,500 mcg PO QAM RF: 0 levothyroxine 125 mcg Tablet 125 mcg PO DAILY@0600 RF: 0 furosemide 20 mg Tablet 80 mg PO MONTHUR RF: 0 Lantus Solostar U-100 Insulin 100 unit/mL (3 mL) Insulin Pen 14 unit SUBCUT QAM RF: 0 amiodarone 200 mg Tablet 200 mg PO DAILY RF: 0 furosemide 20 mg tablet 40 mg PO 5XWK RF: 0 prednisone 10 mg tablet 10 mg PO TID RF: 0 repaglinide 1 mg tablet 0 mg PO TID RF: 0 Januvia 25 mg tablet 25 mg PO DAILY RF: 0 Discontinued atorvastatin 80 mg Tablet 80 mg PO PM RF: 0 Discharge Orders: Discharge Order (Routine); Ordered 07/24/21 Ordered By: Kilo Anderson/Other Patient Handouts: Diabetes and Heart Disease, Diabetes and Kidney Disease, Diabetes Carbs Fats Protein, ED Fall Dizziness Weakn Balance Admission Data Admit Date/Time: 07/22/21 15:04 Attending Provider: Kilo Cuello Admit Provider: Abelino Beckham Primary Care Provider: Blanca Orellana Other Providers: Abelino Beckham ; Ernesto Lawrence Marten Other Interventions: Discharge Summary Assessment (RN) Last Done: 07/24/21 12:51
[2021-07-26] MEDS ORDERED: FUROSEMIDE 80 MG TAB PO SCH (09:00)
[2021-07-27 15:17] LABS: Anti Mitochondrial Antibody NEGATIVE (NEGATIVE); Anti Nuclear Antibody Screen POSITIVE (NEGATIVE); CMV IgM Antibody <30.00 AU/mL; EBV Virus Capsid Ag IgG Ab >750.00 U/mL; HBSAG NON-REACTIVE (NON-REACTIVE); Hepatitis A Antibody IgM NON-REACTIVE (NON-REACTIVE); Hepatitis B Core Antibody IgM NON-REACTIVE (NON-REACTIVE); Smooth Muscle Antibody POSITIVE (NEGATIVE)
[2021-07-28 11:41] LABS: ANA Pattern Nuclear, Nucleolar; ANA Titer 2 > OR = 1:1280 titer; Smooth Muscle Ab Titer 1:20 titer (<1:20)
== END 2021-07-24 13:56 | disposition home or self-care (01) | DRG 312 ==
LOC: ED 11:08 → 2E 15:04 → SUATTDRO 15:04 → 2E 15:45

== ENCOUNTER 2021-08-26 11:52 | Inpatient (IN) ==
[2021-08-26 12:57] LABS: Basophils # (auto) 0.01 K/uL (0-0.2); Basophils % (auto) 0.1 %; Eosinophils # (auto) 0.05 K/uL (0-0.5); Eosinophils % (auto) 0.6 %; Hemoglobin 14.2 g/dL (14.0-18.0); Immature Granulocytes # (auto) 0.03 K/uL (0.00-0.02); Immature Granulocytes % (auto) 0.4 %; Lymphocytes # (auto) 2.47 K/uL (1.2-3.4); Lymphocytes % (auto) 29.1 %; Mean Corpuscular Hemoglobin 33.3 pg (25-34); Mean Corpuscular Volume 100.7 fL (80-100); Mean Platelet Volume 10.8 fL (7.4-10.4); Monocytes # (auto) 0.99 K/uL (0.11-0.59); Monocytes % (auto) 11.7 %; Neutrophils # (auto) 4.93 K/uL (1.4-6.5); Neutrophils % (auto) 58.1 %; Platelet Count 181 K/uL (130-400); RDW Coefficient of Variation 16.7 % (11.5-14.5); Red Blood Count 4.27 M/uL (4.7-6.1); White Blood Count 8.48 K/uL (4.8-10.8)
--- NOTE | 2021-08-26 13:11 | XRay Report ---
SINGLE VIEW CHEST CLINICAL HISTORY: Dyspnea. FINDINGS: An AP, portable, upright chest radiograph is compared to study dated 07/22/2021. The patient is status post midline sternotomy. A 3-lead cardiac AICD is unchanged in position. The heart is enla rged noting atherosclerotic calcification of the thoracic aorta. The pulmonary vasculature is noncong ested. There is mild elevation of the left hemidiaphragm with chronic blunting of the left costophren ic sulcus. Scarring/atelectasis is noted at both lung bases. No large pleural effusion is seen. No pn eumothorax is seen. The skeletal structures are osteopenic. The bony thorax is grossly intact. IMPRESSION: 1. Cardiomegaly and AICD. There is no radiographic evidence of congestive failure. 2. No airspace consolidation or pleural effusion is identified ACT 112: Negative or not required by law. Electronically signed by: Dominik Bassett M.D. 08/26/2021 1:10 PM
[2021-08-26 13:19] LABS: Alanine Aminotransferase 185 U/L (7-52); Albumin Level 3.2 gm/dl (3.4-5.0); Alkaline Phosphatase 318 U/L (34-104); Anion Gap 7 (3-11); BUN Creatinine Ratio 23.4 (10-20); Bilirubin,Total 1.7 mg/dl (0.2-1.0); Blood Urea Nitrogen 59 mg/dl (6-23); Calcium 9.4 mg/dl (8.5-10.1); Carbon Dioxide 31 mmol/L (21-32); Chloride 101 mmol/L (98-107); Est GFR (African American) 26.1 ml/min; Est GFR (Non-African American) 22.5 ml/min; Glucose 148 mg/dl (70-99(Fasting)); Magnesium 2.3 mg/dl (1.7-2.4); Sodium 139 mmol/L (136-145); Total Protein 6.2 gm/dl (6.0-8.3)
[2021-08-26 13:23] LABS: Partial Thromboplastin Ratio 0.9; Partial Thromboplastin Time 25.2 Seconds (21.0-31.0); Prothrombin Time 10.7 Seconds (9.0-12.0); Troponin I High Sensitivity 100.2 pg/ml (0-20)
--- NOTE | 2021-08-26 13:31 | CT Scan Report ---
CT head/brain wo con CLINICAL HISTORY: 86 years-old Male with weakness. Acute weakness TECHNIQUE: Multiple axial CT images of the head were obtained without contrast. A dose lowering tech nique was utilized adhering to the principles of ALARA. CT DOSE: 691.05 mGy.cm COMPARISON: Head CT 07/23/2021 FINDINGS: No acute intracranial hemorrhage, midline shift, intracranial mass, hydrocephalus, territorial ischem ia or abnormal extra-axial collection. Age-related involutional changes. White matter hypodensities r edemonstrated suggestive of chronic microvascular ischemic disease. Cerebral vascular calcifications. The calvarium is intact. Prior bilateral lens replacement. The paranasal sinuses, mastoid air cells, and middle ear cavities are clear. IMPRESSION: No acute intracranial abnormality. ACT 112: Negative or not required by law. The above report was generated using voice recognition software. It may contain grammatical, syntax o r spelling errors. Electronically signed by: Carlos Narvaez M.D. 08/26/2021 1:29 PM
[2021-08-26 13:36] LABS: D Dimer 5870 ug/L FEU (0-500)
[2021-08-26 14:37] LABS: Bilirubin Direct 0.7 mg/dl (0-0.2); Potassium 4.1 mmol/L (3.5-5.1)
--- NOTE | 2021-08-26 14:43 | Electrocardiogram Report ---
Test Reason : Blood Pressure : / mmHG Vent. Rate : 061 BPM Atrial Rate : 357 BPM P-R Int : 000 ms QRS Dur : 168 ms QT Int : 476 ms P-R-T Axes : 000 -52 104 degrees QTc Int : 479 ms Ventricular-paced rhythm Abnormal ECG When compared with ECG of 22-JUL-2021 11:13, Vent. rate has decreased BY 14 BPM Confirmed by Alphonso Daley ([id number]) on 08/26/2021 2:43:09 PM Referred By: REFERRED SELF Confirmed By:Alphonso Daley
--- NOTE | 2021-08-26 15:00 | Ultrasound Report ---
LEFT LOWER EXTREMITY VENOUS DOPPLER HISTORY: Left leg pain. COMPARISON STUDY: None. FINDINGS: There is normal compressibility, flow, and augmentation within the left lower extremity monserrat p venous system. IMPRESSION: No DVT within the left lower extremity. ACT 112: Negative or not required by law. Electronically signed by: Edmond Han M.D. 08/26/2021 2:58 PM
[2021-08-26] MEDS ORDERED: Heparin IV Adult Wt-Based Standard WITH Bolus Protocol IV STA (15:05)
[2021-08-26] MEDS ORDERED: HEPARIN SOD (PORCINE) 1000 UNIT/ML IV ONE (15:21)
--- NOTE | 2021-08-26 15:30 | Emergency Department Note ---
History of Present Illness General Chief complaint: Illness Time Seen by Provider: 08/26/21 12:19 History of Present Illness Provider complaint: Shortness of breath weakness left lower extremity pain Onset (ago): week(s) 1 Location: lower extremity and left Associated symptoms: + chest pain, + shortness of breath and + weakness; no cough, no fever/chills, no headaches or no nausea/vomiting 86-year-old male presents emergency department with his daughter for left lower extremity pain, shortness of breath, and weakness. Patient reports pain in his left calf. He also reports increasing weakness and difficulty breathing. No chest pain. No recent falls Home Medications Medication Instructions Recorded Confirmed Type allopurinol 100 mg tablet 200 mg PO DAILY 10/20/18 08/26/21 History aspirin 81 mg tablet,delayed 81 mg PO Q OTHER DAY 10/20/18 08/26/21 History release cyanocobalamin (vitamin B-12) 500 1,500 mcg PO QAM 10/20/18 08/26/21 History mcg tablet gabapentin 400 mg capsule 400 mg PO HS 10/20/18 08/26/21 History levothyroxine 125 mcg tablet 125 mcg PO DAILY@0600 10/20/18 08/26/21 History metoprolol succinate 100 mg 100 mg PO QAM 10/20/18 08/26/21 History tablet,extended release 24 hr repaglinide 1 mg tablet 0 mg PO TIDM 07/22/21 08/26/21 History sitagliptin 25 mg tablet (Januvia) 25 mg PO DAILY 07/22/21 08/26/21 History furosemide 40 mg tablet 40 mg PO .2XSWE PRN 08/26/21 08/26/21 History furosemide 40 mg tablet 40 mg PO DAILY 08/26/21 08/26/21 History insulin glargine 100 unit/mL (3 10 unit SUBCUT QA 08/26/21 08/26/21 History mL) subcutaneous pen (Basaglar KwikPen U-100 Insulin) isosorbide mononitrate 60 mg 30 mg PO QA 08/26/21 08/26/21 History tablet,extended release 24 hr triamcinolone acetonide 0.1 % 1 applic TOPICAL BID 08/26/21 08/26/21 History topical cream Allergies Allergy/AdvReac Type Severity Reaction Status Date / Time tamsulosin [From Flomax] AdvReac Severe Fainting Verified 08/26/21 15:12 amlodipine AdvReac Mild INSOMNIA Verified 08/26/21 15:12 Novocain SOLN Allergy Fever Uncoded 08/26/21 15:12 Fibrites AdvReac neck pain Uncoded 08/26/21 15:12 Past Med/Surg History Medical History Anemia Benign prostatic hyperplasia with urinary obstruction BPH (benign prostatic hyperplasia) CAD (coronary artery disease) Status post inferior wall myocardial infarction in 1980 Status post January 1997 coronary bypass grafting x 3, receiving a RUSS graft to the LAD, a saphenous vein graft to the ramus, and a SVG to the 1st obtuse marginal. Diabetes DM type 2 (diabetes mellitus, type 2) Gout Gout Hearing deficit High cholesterol History of atrial fibrillation PAF HTN (hypertension) Hyperlipidemia Hypothyroidism ICD (implantable cardioverter-defibrillator) battery depletion Status post dual chamber pacemaker defibrillator implantation on March 11, 2004, generator exchanges on 07/09/2009, and November 11, 2014 using a Satmetrixa XT [id number] device. Status post December 19, 2018 upgrade from a dual chamber implantable cardiac defibrillator to a biventricular rate responsive implantable cardiac defibrillator by Dr. Basurto at [facility]. Ischemic cardiomyopathy PPM upgraded to BiV ICD Obesity Osteoarthritis Stage 4 chronic kidney disease Baseline creatinine 2.4-2.8 range per records Systolic heart failure Transient ischemic attack (TIA) 2014 Urinary urgency V tach Hx Surgical History History of cardiac cath History of colonoscopy History of eye surgery History of implantable cardiac defibrillator (ICD) History of tonsillectomy History of tooth extraction History of transurethral resection of prostate TURP (02/20/18): LMA#4 (iGel) at [facility] Hx of CABG CABG x3 (1996)- RUSS-LAD, SVG-RAMUS, SVG TO OM1 Hx of transurethral resection of prostate ICD (implantable cardioverter-defibrillator) in place Implanted (2003); Generator change (2009) Family History Brother Prostate cancer Diabetes Coronary heart disease Mother Diabetes Stroke Coronary heart disease Father Stroke Social History Smoking Status: Unknown if ever smoked Second Hand Exposure: Yes (USED TO BE AT WORK (RETIRED 1996)); Hx Alcohol Use: No Hx Substance Use: No Preferred Language: Guyanese Communication Ability: Effective Film Flat Inspector Required: No Beliefs That Will Affect Care: None marital status: Current Living Situation: Spouse Feels Safe at Home: Yes Assistive Devices: None Review of Systems A total of 10 systems reviewed and were otherwise negative Physical Exam Vital Signs Vital Signs - 24 hr 08/26/21 11:44 08/26/21 12:17 08/26/21 12:20 Temperature 36.7 C Temperature Source Oral Pulse Rate 60 60 62 Pulse Rate from SpO2 Sensor 60 64 Respiratory Rate 20 11 L 20 Respiratory Effort / Characteristics Non-Labored Respiratory Depth Normal Respiratory Pattern Regular Blood Pressure 122/64 Blood Pressure Mean 83 Pulse Oximetry 95 97 95 Oxygen Delivery Method Room Air Sepsis Recent Fever Within 48 Hours No Sepsis New/Unexplained Change in Mental Status No Sepsis Action Taken by Nursing No Action Required 08/26/21 12:30 08/26/21 12:40 08/26/21 12:50 Temperature Temperature Source Pulse Rate 61 60 60 Pulse Rate from SpO2 Sensor 61 60 60 Respiratory Rate 18 21 20 Respiratory Effort / Characteristics Respiratory Depth Respiratory Pattern Blood Pressure 114/58 L Blood Pressure Mean 76 Pulse Oximetry 97 97 98 Oxygen Delivery Method Sepsis Recent Fever Within 48 Hours Sepsis New/Unexplained Change in Mental Status Sepsis Action Taken by Nursing 08/26/21 13:00 08/26/21 13:10 08/26/21 13:20 Temperature Temperature Source Pulse Rate 65 60 66 Pulse Rate from SpO2 Sensor 60 59 L Respiratory Rate 21 20 17 Respiratory Effort / Characteristics Respiratory Depth Respiratory Pattern Blood Pressure Blood Pressure Mean Pulse Oximetry 96 96 Oxygen Delivery Method Sepsis Recent Fever Within 48 Hours Sepsis New/Unexplained Change in Mental Status Sepsis Action Taken by Nursing 08/26/21 13:30 Temperature Temperature Source Pulse Rate 60 Pulse Rate from SpO2 Sensor 60 Respiratory Rate 10 L Respiratory Effort / Characteristics Respiratory Depth Respiratory Pattern Blood Pressure 126/62 Blood Pressure Mean 83 Pulse Oximetry 86 L Oxygen Delivery Method Sepsis Recent Fever Within 48 Hours Sepsis New/Unexplained Change in Mental Status Sepsis Action Taken by Nursing Physical Exam GENERAL: He is oriented to person, place, and time. He appears well-developed and well-nourished. He does not appear distressed. HENT: Exam performed. - Head: Normocephalic and atraumatic. - Right Ear: External ear normal. No mastoid tenderness. - Left Ear: External ear normal. No mastoid tenderness. - Mouth/Throat: The oropharynx is clear and moist. No trismus in the jaw. No dental abscesses or uvula swelling. No oropharyngeal exudate or tonsillar abscesses. EYES: Conjunctivae and EOM are normal. Pupils are equal, round, and reactive to light. Right eye exhibits no discharge. Left eye exhibits no discharge. No scleral icterus. NECK: Normal range of motion. Neck supple. No JVD present. No spinous process tenderness present. No carotid bruit present. No rigidity. No tracheal deviation and normal range of motion present. No Brudzinski's sign and no Kernig's sign noted. CV: Normal rate, regular rhythm, normal heart sounds and intact distal pulses. There is no peripheral edema. Palpable radial pulses bue. PULM/CHEST: Effort normal and breath sounds normal. No respiratory distress. No stridor. He has no wheezes. He has no rales. - Chest Wall: He exhibits no tenderness. ABD: The abdomen is soft. Bowel sounds are normal. He has no distension. No mass is present. There is no tenderness. There is no rebound, no guarding, no Storm's sign and no tenderness at McBurney's point. Rovsig negative. MUSC/SKEL: Pain on palpation of the left calf reproducing the chief complaint. Palpable DP and PT pulses bilateral lower extremities. LYMPH: No cervical adenopathy. NEURO: He is alert and oriented to person, place, and time. He has normal strength. No cranial nerve deficit or sensory deficit. Coordination and gait normal. GCS eye subscore is 4. GCS verbal subscore is 5. GCS motor subscore is 6. Cerebellar tests wnl. SKIN: Skin is warm and dry. He is not diaphoretic. PSYCH: He has a normal mood and affect. Behavior is normal. Judgment and thought content normal. Course Course 1219: The patient was evaluated in room C2. A complete history and physical exam was performed Cardiac monitoring: An order was placed for continuous cardiac monitoring. The monitor shows a rate of 60 with paced rhythm 1515: Labs are significant for creatinine of 2.52, this is at the patient's baseline. Patient's bilirubin is 1.7 also stable from previous draw in July. Troponin elevated at 100.2. D-dimer is elevated. Imaging including CT of the head chest x-ray and ultrasound of lower extremities within normal limits. Given the patient's elevated D-dimer and troponin the patient will be admitted to the [facility] team to have serial troponins and VQ scan to rule out PE. Patient will be started on heparin empirically. Discussed case with [facility] team Katherine trinh who is agreement with the plan. Critical Care Time Critical Care Time: Yes Total Critical Care Time: 48 I have personally spent greater than 48 minutes of critical care time in the direct management of this patient. This includes bedside care, interpretation of diagnostic studies, and testing, discussion with consultants, patient, and family members, and other required patient management activities. This 48 minutes is in excess of all separately billable procedures. Medical Decision Making Laboratory Data Result diagrams: 08/26/21 12:15 08/26/21 14:00 Lab Results 08/26/21 08/26/21 08/26/21 Range/Units 12:15 12:15 12:15 WBC 8.48 (4.8-10.8) K/uL RBC 4.27 L (4.7-6.1) M/uL Hgb 14.2 (14.0-18.0) g/dL Hct 43.0 (42-52) % MCV 100.7 H (80-100) fL MCH 33.3 (25-34) pg MCHC 33.0 (32-36) g/dL RDW Std Deviation 61.0 H (36.4-46.3) fL RDW Coeff of [place] 16.7 H (11.5-14.5) % Plt Count 181 (130-400) K/uL MPV 10.8 H (7.4-10.4) fL Immature Gran % (Auto) 0.4 % Neut % (Auto) 58.1 % Lymph % (Auto) 29.1 % [place] % (Auto) 11.7 % Eos % (Auto) 0.6 % Baso % (Auto) 0.1 % Neut # (Auto) 4.93 (1.4-6.5) K/uL Lymph # (Auto) 2.47 (1.2-3.4) K/uL [place] # (Auto) 0.99 H (0.11-0.59) K/uL Eos # (Auto) 0.05 (0-0.5) K/uL Baso # (Auto) 0.01 (0-0.2) K/uL Immature Gran # (Auto) 0.03 H (0.00-0.02) K/uL PT 10.7 (9.0-12.0) Seconds INR 1.0 (0.9-1.1) APTT 25.2 (21.0-31.0) Seconds PTT Ratio 0.9 D-Dimer 5870 H* (0-500) ug/L FEU Sodium 139 (136-145) mmol/L Potassium TNP Chloride 101 (98-107) mmol/L Carbon Dioxide 31 (21-32) mmol/L Anion Gap 7 (3-11) BUN 59 H (6-23) mg/dl Creatinine 2.52 H (0.6-1.4) mg/dl Est Cr Clr Drug Dosing Not Reportable Est GFR ( Amer) 26.1 ml/min Est GFR (Non-Af Amer) 22.5 ml/min BUN/Creatinine Ratio 23.4 H (10-20) Glucose 148 H (70-99(Fasting)) mg/dl Calcium 9.4 (8.5-10.1) mg/dl Magnesium 2.3 (1.7-2.4) mg/dl Total Bilirubin 1.7 H (0.2-1.0) mg/dl Direct Bilirubin TNP AST TNP ALT 185 H (7-52) U/L Alkaline Phosphatase 318 H (34-104) U/L Troponin I High Sens (0-20) pg/ml Total Protein 6.2 (6.0-8.3) gm/dl Albumin 3.2 L (3.4-5.0) gm/dl Lipase (11-82) U/L 08/26/21 08/26/21 08/26/21 Range/Units 12:15 12:15 14:00 WBC (4.8-10.8) K/uL RBC (4.7-6.1) M/uL Hgb (14.0-18.0) g/dL Hct (42-52) % MCV (80-100) fL MCH (25-34) pg MCHC (32-36) g/dL RDW Std Deviation (36.4-46.3) fL RDW Coeff of [place] (11.5-14.5) % Plt Count (130-400) K/uL MPV (7.4-10.4) fL Immature Gran % (Auto) % Neut % (Auto) % Lymph % (Auto) % [place] % (Auto) % Eos % (Auto) % Baso % (Auto) % Neut # (Auto) (1.4-6.5) K/uL Lymph # (Auto) (1.2-3.4) K/uL [place] # (Auto) (0.11-0.59) K/uL Eos # (Auto) (0-0.5) K/uL Baso # (Auto) (0-0.2) K/uL Immature Gran # (Auto) (0.00-0.02) K/uL PT (9.0-12.0) Seconds INR (0.9-1.1) APTT (21.0-31.0) Seconds PTT Ratio D-Dimer Cancelled (0-500) ug/L FEU Sodium (136-145) mmol/L Potassium 4.1 Chloride (98-107) mmol/L Carbon Dioxide (21-32) mmol/L Anion Gap (3-11) BUN (6-23) mg/dl Creatinine (0.6-1.4) mg/dl Est Cr Clr Drug Dosing Est GFR ( Amer) ml/min Est GFR (Non-Af Amer) ml/min BUN/Creatinine Ratio (10-20) Glucose (70-99(Fasting)) mg/dl Calcium (8.5-10.1) mg/dl Magnesium (1.7-2.4) mg/dl Total Bilirubin (0.2-1.0) mg/dl Direct Bilirubin 0.7 H AST 85 H ALT (7-52) U/L Alkaline Phosphatase (34-104) U/L Troponin I High Sens 100.2 H* (0-20) pg/ml Total Protein (6.0-8.3) gm/dl Albumin (3.4-5.0) gm/dl Lipase 82 (11-82) U/L Imaging Data Radiologist's Impression: Chest X-Ray 08/26/21 12:30 SINGLE VIEW CHEST CLINICAL HISTORY: Dyspnea. FINDINGS: An AP, portable, upright chest radiograph is compared to study dated 07/22/2021. The patient is status post midline sternotomy. A 3-lead cardiac AICD is unchanged in position. The heart is enlarged noting atherosclerotic calcification of the thoracic aorta. The pulmonary vasculature is noncongested. There is mild elevation of the left hemidiaphragm with chronic blunting of the left costophrenic sulcus. Scarring/atelectasis is noted at both lung bases. No large pleural effusion is seen. No pneumothorax is seen. The skeletal structures are osteopenic. The bony thorax is grossly intact. IMPRESSION: 1. Cardiomegaly and AICD. There is no radiographic evidence of congestive failure. 2. No airspace consolidation or pleural effusion is identified ACT 112: Negative or not required by law. Electronically signed by: Dominik Bassett M.D. 08/26/2021 1:[address] 08/26/21 12:30 CT head/brain wo con CLINICAL HISTORY: 86 years-old Male with weakness. Acute weakness TECHNIQUE: Multiple axial CT images of the head were obtained without contrast. A dose lowering technique was utilized adhering to the principles of ALARA. CT DOSE: 691.05 mGy.cm COMPARISON: Head CT 07/23/2021 FINDINGS: No acute intracranial hemorrhage, midline shift, intracranial mass, hydrocephalus, territorial ischemia or abnormal extra-axial collection. Age- related involutional changes. White matter hypodensities redemonstrated s uggestive of chronic microvascular ischemic disease. Cerebral vascular calcifications. The calvarium is intact. Prior bilateral lens replacement. The paranasal sinuses, mastoid air cells, and middle ear cavities are clear. IMPRESSION: No acute intracranial abnormality. ACT 112: Negative or not required by law. The above report was generated using voice recognition software. It may contain grammatical, syntax or spelling errors. Electronically signed by: Carlos Narvaez M.D. 08/26/2021 1:29 PM Venous Doppler Study 08/26/21 12:30 LEFT LOWER EXTREMITY VENOUS DOPPLER HISTORY: Left leg pain. COMPARISON STUDY: None. FINDINGS: There is normal compressibility, flow, and augmentation within the left lower extremity deep venous system. IMPRESSION: No DVT within the left lower extremity. ACT 112: Negative or not required by law. Electronically signed by: Edmond Han M.D. 08/26/2021 2:58 PM ECG Data Additional Comments: Ventricular paced rhythm with rate of 61. QRS 168 QTC 479 no ectopy. MDM Narrative Labs are significant for creatinine of 2.52, this is at the patient's baseline. Patient's bilirubin is 1.7 also stable from previous draw in July. Troponin elevated at 100.2. D-dimer is elevated. Imaging including CT of the head chest x-ray and ultrasound of lower extremities within normal limits. Given the patient's elevated D-dimer and troponin the patient will be admitted to the [facility] team to have serial troponins and VQ scan to rule out PE. Patient will be started on heparin empirically. Discussed case with [facility] team Katherine trinh who is agreement with the plan. Impression & Plan Dyspnea, Elevated troponin, Elevated d-dimer Discharge Plan Visit Data Chief Complaint: Illness Discharge Problem: Dyspnea, Elevated troponin, Elevated d-dimer Patient Disposition: Being Evaluated by Hospitalist Forms Stand Alone Forms: My [facility] Prescriptions Prescriptions: No Action metoprolol succinate 100 mg Tablet Extended Release 24 Hr 100 mg PO QAM RF: 0 gabapentin 400 mg Capsule 400 mg PO HS RF: 0 allopurinol 100 mg Tablet 200 mg PO DAILY RF: 0 aspirin 81 mg Tablet,Delayed Release (Dr/Ec) 81 mg PO Q OTHER DAY RF: 0 cyanocobalamin (vitamin B-12) 500 mcg Tablet 1,500 mcg PO QAM RF: 0 levothyroxine 125 mcg Tablet 125 mcg PO DAILY@0600 RF: 0 repaglinide 1 mg tablet 0 mg PO TIDM RF: 0 Januvia 25 mg tablet 25 mg PO DAILY RF: 0 furosemide 40 mg tablet 40 mg PO DAILY RF: 0 furosemide 40 mg tablet 40 mg PO .2XSWE PRN RF: 0 triamcinolone acetonide 0.1 % Cream 1 applic TOPICAL BID RF: 0 isosorbide mononitrate 60 mg tablet extended release 24 hr 30 mg PO QAM RF: 0 Basaglar KwikPen U-100 Insulin 100 unit/mL (3 mL) insulin pen 10 unit SUBCUT QAM RF: 0 Referrals Referrals: Blanca Orellana MD [Primary Care Provider] -
[2021-08-26] MEDS: HEPARIN SODIUM/DEXTROSE 25,000 UNITS/500 ML BAG IV SCH (15:41)
--- NOTE | 2021-08-26 17:01 | CT Scan Report ---
CT SCAN OF THE ABDOMEN AND PELVIS WITHOUT IV CONTRAST CLINICAL HISTORY: Weight loss. Elevated hepatic transaminases. COMPARISON STUDY: Abdominal CT dated 12/08/2017. TECHNIQUE: CT scan of the abdomen and pelvis is performed from the lung bases to the proximal femora. Images are reviewed in the axial, sagittal, and coronal planes. IV contrast was not administered for this examination. A dose lowering technique was utilized adhering to the principles of ALARA. CT DOSE: 809.47 mGycm FINDINGS: Lung bases: The patient is status post midline sternotomy. The heart is enlarged and and without yuriy cardial effusion. The coronary arteries are densely calcified. Pacemaker leads are noted. There is a small left pleural effusion with dependent atelectasis. Scarring/atelectasis is seen at both lung bas es. There is no airspace consolidation typical for pneumonia. Liver: The unenhanced liver is normal in size, contour, and attenuation. There is no intrahepatic hay iary ductal dilatation. Gallbladder: The gallbladder is distended and there are numerous tiny calcified gallstones. There is minimal pericholecystic infiltration. Spleen: Normal in size and attenuation. Pancreas: The unenhanced pancreas is mildly atrophic and grossly unremarkable. Adrenal glands: Unremarkable. Kidneys: The unenhanced kidneys demonstrate cortical atrophy and are without hydronephrosis. There is a 5 nonobstructing calculus in the right kidney. There are least 5 small nonobstructing left renal c alculi which measure up to 4 mm. No ureteral stone is seen. Bilateral renal cysts measure up to 3.3 cm. Additional subcentimeter cortical hypodensities also likely represent cysts but are too small for definitive characterization. Abdominal vasculature: The abdominal aorta is normal in course and caliber noting moderate to advance d atherosclerotic calcification. Bowel: There is mild colonic diverticulosis without CT evidence of acute diverticulitis. No bowel obs truction is identified. Mild fecal retention is seen throughout the colon. An intraluminal metallic f oreign body is noted within the descending colon on axial image #181. The appendix is well-visualize d and normal. Peritoneum: There is no intraperitoneal free air or abdominal ascites. There is a small fat-containin g umbilical hernia. Lymphadenopathy: None. Pelvic viscera: The bladder is distended but otherwise grossly unremarkable the prostate gland is dim inutive and heterogeneous. The seminal vesicles are normal as imaged. There are bilateral fat-contain ing groin hernias. Skeletal structures: The skeletal structures are osteopenic. There is moderate lumbosacral spondylosi s. Degenerative change is also seen in the hips and sacroiliac joints. No lytic or blastic lesions ar e seen. IMPRESSION: 1. The gallbladder is distended and there are numerous small calcified gallstones. There is minimal p ericholecystic infiltration. Correlate with clinical and laboratory findings for evidence of mild acu te cholecystitis. If clinically warranted this could be further evaluated with a right upper quadrant ultrasound or possibly nuclear hepatobiliary scan. 2. Cardiomegaly and cardiac pacemaker. 3. Small left pleural effusion. 4. Bilateral nephrolithiasis. 5. Bladder distention. 6. Additional findings as above. ACT 112: Negative or not required by law. Electronically signed by: Dominik Bassett M.D. 08/26/2021 4:58 PM
--- NOTE | 2021-08-26 17:27 | History & Physical Report ---
Date of Service August 26, 2021 Assessment & Plan (1) Generalized weakness: (2) Elevated troponin: (3) Elevated d-dimer: Plan: Admit to tele Patient presenting from home with reports of generalized weakness, lightheadedness. Recently seen in cardiology clinic and found to be orthostatic, Lasix and isosorbide doses reduced. In the ED, D-dimer 5800, troponin 100.2 --> 84.1. EKG demonstrates a paced rhythm. No chest pain, patient saturating well on room air. Patient empirically started on IV heparin in the ED Unable to obtain CTA chest due to CKD. VQ scan ordered Trend troponin Resting echo Orthostatic BPs, may need additional medication adjustment Patient's advanced age and multiple comorbid conditions likely contributing to his generalized weakness Cardiology consult (4) Transaminitis: Plan: Noted during admission last month, at that time had a gallbladder ultrasound that was unremarkable CT ABD/pelvis today showing the gallbladder is distended and there are numerous small calcified gallstones. There is minimal pericholecystic infiltration. Correlate with clinical and laboratory findings for evidence of mild acute cholecystitis. Given gallstones noted on CT scan, ?? Choledocholithiasis Patient asymptomatic, afebrile, no leukocytosis Check RUQ US Start IV Cipro and Flagyl General surgery and GI consults (5) Left knee pain: Plan: Had recent knee x-ray as an outpatient that was unremarkable for acute findings Ortho consult for possible steroid injection (6) CAD (coronary artery disease): (7) Ischemic cardiomyopathy: (8) 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: Plan: Appears compensated, continue home dose of furosemide Continue ASA, beta-corky, nitrate (9) CKD (chronic kidney disease) stage 4, GFR 15-29 ml/min: Plan: Baseline creatinine mid 2s- low 3s Creatinine 2.5 today Follow renal functions (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: (12) Pacemaker: Plan: Device interrogation ordered (13) TIA (transient ischemic attack): Plan: History of Continue ASA, statin discontinued during recent admission due to transaminitis (14) DM type 2 (diabetes mellitus, type 2): Plan: Hgb A1c 9.2 07/2021 NovoLog per protocol while hospitalized (15) DVT prophylaxis: Plan: On IV heparin as above History of Present Illness Chief Complaint: Generalized weakness Primary Care Provider: Blanca Orellana MD 86-year-old male with PMH DM type II, CAD, ischemic cardiomyopathy EF 25%, history of paroxysmal V. tach, atrial fibrillation not anticoagulated due to advanced age and fall risk, pacer/AICD in place, CKD stage IV, history of TIA, and other problems listed below who presents the ED for evaluation of generalized weakness. Patient admitted to [facility] 1 month ago for near syncope, fall. Patient has been going to PT 3 times per week. He was evaluated in the cardiology office recently for complaints of lightheadedness and generalized weakness. Was found to be orthostatic in the office and Lasix was reduced to 40 mg daily and isosorbide was reduced to 30 mg daily. Today, patient felt very weak and had difficulty getting out of bed. He then presented to the ED for further evaluation. 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 Patient was being treated for PJP with Atovaquone and prednisone. He has since completed courses of both medications. Patient developed left knee pain a couple of weeks ago. Was seen by PCP and had a Doppler that was negative for DVT and x-ray that was unremarkable. Patient reports left knee pain has been progressively getting worse. No known injury. Patient reports chronic exertional shortness of breath which is unchanged from baseline. No chest pain. Has been having intermittent episodes of lightheadedness with standing, no syncopal event. Denies any other recent illnesses, fevers, chills. No abdominal pain, nausea, vomiting, diarrhea. Patient notes a 25 pound weight loss since May. Denies urinary symptoms. In the ED, patient is hemodynamically stable. Labs show elevated D- dimer 5800, troponin 100.2 --> 84.1. Transaminitis noted. EKG demonstrates a paced rhythm. CXR, head CT, LLE venous Doppler all remarkable for acute findings. Patient was empirically started on IV heparin. Allergies Allergy/AdvReac Type Severity Reaction Status Date / Time tamsulosin [From Flomax] AdvReac Severe Fainting Verified 08/26/21 15:12 amlodipine AdvReac Mild INSOMNIA Verified 08/26/21 15:12 Novocain SOLN Allergy Fever Uncoded 08/26/21 15:12 Fibrites AdvReac neck pain Uncoded 08/26/21 15:12 Home Medications Medication Instructions Recorded Confirmed Type allopurinol 100 mg tablet 200 mg PO DAILY 10/20/18 08/26/21 History aspirin 81 mg tablet,delayed 81 mg PO Q OTHER DAY 10/20/18 08/26/21 History release cyanocobalamin (vitamin B-12) 500 1,000 mcg PO QAM 10/20/18 08/26/21 History mcg tablet gabapentin 400 mg capsule 400 mg PO HS 10/20/18 08/26/21 History levothyroxine 125 mcg tablet 125 mcg PO DAILY@0600 10/20/18 08/26/21 History metoprolol succinate 100 mg 100 mg PO QAM 10/20/18 08/26/21 History tablet,extended release 24 hr repaglinide 1 mg tablet 0 mg PO TIDM 07/22/21 08/26/21 History sitagliptin 25 mg tablet (Januvia) 25 mg PO DAILY 07/22/21 08/26/21 History furosemide 40 mg tablet 40 mg PO DAILY 08/26/21 08/26/21 History insulin glargine 100 unit/mL (3 10 unit SUBCUT QA 08/26/21 08/26/21 History mL) subcutaneous pen (Basaglar KwikPen U-100 Insulin) isosorbide mononitrate 60 mg 30 mg PO QAM 08/26/21 08/26/21 History tablet,extended release 24 hr triamcinolone acetonide 0.1 % 1 applic TOPICAL BID 08/26/21 08/26/21 History topical cream Past Med/Surg History Medical History Benign prostatic hyperplasia with urinary obstruction CAD (coronary artery disease) Status post inferior wall myocardial infarction in 1980 Status post January 1997 coronary bypass grafting x 3, receiving a RUSS graft to the LAD, a saphenous vein graft to the ramus, and a SVG to the 1st obtuse marginal. CHB (complete heart block) pt admitted for elective upgrade to biv icd. Underwent procedure without any complications and monitored overnight Diabetes DM type 2 (diabetes mellitus, type 2) Gout High cholesterol History of atrial fibrillation PAF HTN (hypertension) Hyperlipidemia Hypothyroidism ICD (implantable cardioverter-defibrillator) battery depletion Status post dual chamber pacemaker defibrillator implantation on March 11, 2004, generator exchanges on 07/09/2009, and November 11, 2014 using a Medtronic Evera XT DR [id number] device. Status post December 19, 2018 upgrade from a dual chamber implantable cardiac defibrillator to a biventricular rate responsive implantable cardiac defibrillator by Dr. Basurto at [facility]. Ischemic cardiomyopathy PPM upgraded to BiV ICD Osteoarthritis Stage 4 chronic kidney disease Baseline creatinine 2.4-2.8 range per records Systolic heart failure Tachy-pablo syndrome Transient ischemic attack (TIA) 2014 Urinary urgency V tach Hx Surgical History History of cardiac cath History of colonoscopy History of eye surgery History of implantable cardiac defibrillator (ICD) History of tonsillectomy History of tooth extraction History of transurethral resection of prostate TURP (02/20/18): LMA#4 (iGel) at [facility] Hx of CABG CABG x3 (1996)- RUSS-LAD, SVG-RAMUS, SVG TO OM1 Hx of transurethral resection of prostate ICD (implantable cardioverter-defibrillator) in place Implanted (2003); Generator change (2009) Family History Brother Prostate cancer Diabetes Coronary heart disease Mother Diabetes Stroke Coronary heart disease Father Stroke Social History Smoking Status: Unknown if ever smoked Second Hand Exposure: Yes (USED TO BE AT WORK (RETIRED 1996)); Hx Alcohol Use: No Hx Substance Use: No Preferred Language: [place] Communication Ability: Effective Range Technician Required: No Beliefs That Will Affect Care: None marital status: Current Living Situation: Spouse Feels Safe at Home: Yes Assistive Devices: None Review of Systems Review of Systems: ROS per HPI, all other systems reviewed and negative Physical Exam Constitutional: WD/WN, vitals as above Eyes: PERRL, conjunctivae normal, anicteric sclerae ENMT: external ear and nose normal, oropharynx normal Respiratory: normal respiratory effort, lungs clear to auscultation Cardiovascular: Rate/Rhythm: regular rate and regular rhythm Vessels: normal peripheral pulses Extremities: no edema Gastrointestinal (Abdomen): normal bowel sounds, soft, nontender, no hepatosplenomegaly Musculoskeletal: no cyanosis or clubbing, extremities motor strength 5/5 Skin: no rashes, warm and dry Neurologic: PERRL, EOMI, accommodation nl, no face palsy, no dysarthria Psychiatric: A+Ox3, euthymic affect Results & Data Results & Data ([facility]) Vital Signs (Past 12 Hours) Vital Signs Temp Pulse Pulse Resp BP BP Pulse Ox 08/26/21 15:47 61 13 129/62 97 08/26/21 13:30 60 10 L 126/62 86 L 08/26/21 13:20 66 17 08/26/21 13:10 60 20 96 08/26/21 13:00 65 21 96 08/26/21 12:50 60 20 98 08/26/21 12:40 60 21 97 08/26/21 12:30 61 18 114/58 L 97 08/26/21 12:20 62 20 95 08/26/21 12:17 60 11 L 97 08/26/21 11:44 36.7 C 60 20 122/64 95 Laboratory Results Short CBC 08/26/21 08/26/21 08/26/21 Range/Units 12:15 12:15 15:35 WBC 8.48 (4.8-10.8) K/uL Hgb 14.2 (14.0-18.0) g/dL Hct 43.0 (42-52) % Plt Count 181 (130-400) K/uL Troponin I High Sens 100.2 H* 84.1 H* D (0-20) pg/ml BMP 08/26/21 08/26/21 12:15 14:00 Sodium 139 Potassium TNP 4.1 Chloride 101 Carbon Dioxide 31 BUN 59 H Creatinine 2.52 H Glucose 148 H Calcium 9.4 Liver Function 08/26/21 08/26/21 Range/Units 12:15 14:00 Total Bilirubin 1.7 H (0.2-1.0) mg/dl Direct Bilirubin TNP 0.7 H AST TNP 85 H ALT 185 H (7-52) U/L Alkaline Phosphatase 318 H (34-104) U/L Albumin 3.2 L (3.4-5.0) gm/dl Diagnostic Findings Short CBC 08/26/21 Range/Units 12:15 WBC 8.48 (4.8-10.8) K/uL Hgb 14.2 (14.0-18.0) g/dL Hct 43.0 (42-52) % Plt Count 181 (130-400) K/uL BMP 08/26/21 08/26/21 12:15 14:00 Sodium 139 Potassium TNP 4.1 Chloride 101 Carbon Dioxide 31 BUN 59 H Creatinine 2.52 H Glucose 148 H Calcium 9.4 Liver Function 08/26/21 08/26/21 Range/Units 12:15 14:00 Total Bilirubin 1.7 H (0.2-1.0) mg/dl Direct Bilirubin TNP 0.7 H AST TNP 85 H ALT 185 H (7-52) U/L Alkaline Phosphatase 318 H (34-104) U/L Albumin 3.2 L (3.4-5.0) gm/dl Code Status & VTE Plan Code Status Patient is a full code as per my discussion with him. VTE Prophylaxis Plan VTE Prophylaxis will be ordered: No Supervising Physician Co-Signing Physician Notes 86 yo M with PMH of T2DM, CAD, ischemic CM [EF 25%], history of paroxysmal V. tach, A. fib not anticoagulated due to advanced age and fall risk, pacer/AICD in situ, CKD stage IV, history of TIA presented 5/ to our ED with c/o left knee pain x 2 weeks and progressive weakness x 2 weeks. Per pt, he is feeling weak since last 2 weak progressing upto being not able to get out of bed, also left left knee is bothering whenever he stands/walks, it is very painful per patient. He also reports decreasing appetite in the last month and around 25-30 lbs weight loss since Nov last year. 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 He also complains of ARAUJO. Labs reviewed, trop and d dimer elevated, v/q scan, ECHO, heparin drip, trend trop, card consult. Pt w/ no chest pain. LFT elevated, CTAP concerning for cholecystitis, Sx consult, GI/elevated LFTs, cipro and flagyl. monitor LFTs. RUQ USG. Lipase wnl. CT Head and CXR no acute findings. Ortho consult for his left knee pain. r/o infection/?steroid injection EKG w/ paced rhythm. Upon Exam GENERAL: Alert and oriented x3. NAD, on RA. frail and ill appearing. HEENT: No pallor, no icterus. Pupils equal, round and reactive to light. Oral mucosa moist. NECK: No JVD, no neck masses. HEART: S1 and S2 heard. Regular rate and rhythm. No murmur, no gallop. Well healed old sternotomy scar noted. RESPIRATORY SYSTEM: Normal AP diameter. No accessory muscle use. No wheezing, no crackles. ABDOMEN: Soft, bowel sounds present, nontender, no distention. CENTRAL NERVOUS SYSTEM: No facial droop. Speech is clear. Obeys simple commands. Moves extremities. EXTREMITIES: No edema, no erythema seen. medial tenderness x left knee. I have seen and examined the patient and have discussed the case with the provider above. I agree with the assessment and plan as stated. (1) CAD (coronary artery disease) Associated angina: without angina Coronary Disease-Associated Artery/Lesion type: unspecified vessel or lesion type [place] vs. transplanted heart: [place] heart Qualified Code(s): I25.10 - Atherosclerotic heart disease of [place] coronary artery without angina pectoris
[2021-08-26] MEDS ORDERED: CIPROFLOXACIN / D5W 400 MG/200 ML BAG IV ONE (18:15)
[2021-08-26] MEDS ORDERED: GLUCOSE 10 TABS/TUBE PO PRN (19:16)
[2021-08-26] MEDS ORDERED: GLUCAGON FOR INJ 1 MG VIAL SQ PRN (19:16)
[2021-08-26] MEDS ORDERED: DEXTROSE 50% 50 ML SYRINGE IV PRN (19:16)
[2021-08-26] MEDS ORDERED: GLUCOSE 40% GEL 15 GM TUBE PO PRN (19:16)
[2021-08-26] MEDS ORDERED: CARBOHYDRATES FOR HYPOGLYCEMIA PO PRN (19:16)
[2021-08-26] MEDS: metroNIDAZOLE 500 MG/100 ML BAG IV SCH (19:31)
[2021-08-26] MEDS: GABAPENTIN 400 MG CAP PO SCH (20:51)
--- NOTE | 2021-08-26 21:16 | Surgery Consultation ---
Date of Consultation August 26, 2021 Assessment & Plan (1) Cholelithiasis: Patient has been admitted by the hospitalist service. Concerning patient's cholelithiasis and CT scan findings we recommend the following: We will correlate the CT scan endings with gallbladder ultrasound has been ordered by the medical service He has been started empirically on IV Cipro and Flagyl which we will continue until we obtain gallbladder ultrasound Patient has an entirely benign abdomen and no clinical evidence of acute cholecystitis. Will await GI recommendations as they have been consulted At the present time there is not appear to be any need for urgent surgical intervention It should be noted that the patient has been started empirically on intravenous heparin drip as part of his cardiac evaluation. If any procedure intervention is needed coordination with cessation of this medication may be required. Remainder of plan as directed by the primary service History of Present Illness Reason for Consultation: Cholelithiasis Attending Physician: Avinash Lowe MD History of Present Illness This is an 86-year-old male who presented to [facility] secondary to generalized weakness. Patient has a significant cardiovascular history including coronary artery disease, ischemic cardiomyopathy with an ejection fraction of 25%, history of paroxysmal ventricular tachycardia, history of atrial fibrillation for which he is not anticoagulated, and insertion of a permanent pacemaker/AICD. Patient also has a history of TIA, chronic kidney disease and diabetes. Patient notes that he has fallen at home several days ago striking his head but he said he did not lose consciousness. He notes that he presented to the emergency department today due to generalized weakness having a great deal of difficulty walking. Since arrival to the emergency department the patient has had a fairly extensive work-up including a chest x-ray that showed no evidence of congestive heart failure or pneumonia. He did have a CT scan of the head that showed no evidence of acute stroke. He had a lower extremity venous ultrasound of his left leg that was negative for DVT. He also underwent a CT scan of the abdomen which showed that the patient had a distended gallbladder with numerous small gallstones and minimal pericholecystic infiltration. Labs include a CBC where his white blood cell count, hemoglobin, and hematocrit were normal. His platelet count was also noted to be normal. Chemistry profile showed sodium and potassium were normal. His BUN and creatinine were 59 and 2.5. This level of creatinine correlates with what his baseline runs. Coagulation studies showed an elevated D-dimer at 5870. Liver enzymes including his AST and ALT were elevated at 85 and 185. His alkaline phosphatase was 318. Total and direct bilirubin were 1.7 and 0.7 respectively. His lipase was not elevated. It is nowhere the mention that he did have a troponin that was elevated at 84.1. A COVID test was negative. General surgery was asked to see him secondary to the findings concerning his gallbladder on CT scan. I did question patient about this and he notes that he has no abdominal pain. He denies any nausea or vomiting. He denies any fevers, shakes, or chills. He also denies any recent postprandial abdominal pain in the past several weeks. In addition, the patient denies any prior abdominal surgeries. Patient's records were reviewed and patient was admitted to [facility] from 07/22/2021 through 07/24/2021. During this admission he was evaluated for a fall that was felt to either be a syncopal episode versus a mechanical fall. During this admission the patient was noted to have transaminitis with an elevated AST and ALT at 58 and 70 respectively. His alkaline phosphatase was 129 and his bilirubin was 1.8. He did have a gallbladder ultrasound during that admission that showed no gallstones. There is no gallbladder wall thickening. And there is no biliary ductal dilatation. Patient did have serologies for hepatitis A, B, and C checked all of which were negative. He was noted to have elevated IgG levels of both CMV and EBV. Patient was seen by gastroenterology and plans were tentatively made for patient undergo an outpatient EGD and potentially an endoscopic ultrasound with liver biopsy. Since admission the patient has been undergoing work-up for possible cardiac etiology to his underlying weakness. At the time of my interview the patient was resting comfortably in bed and he was in no distress. Allergies Allergy/AdvReac Type Severity Reaction Status Date / Time tamsulosin [From Flomax] AdvReac Severe Fainting Verified 08/26/21 15:12 amlodipine AdvReac Mild INSOMNIA Verified 08/26/21 15:12 Novocain SOLN Allergy Fever Uncoded 08/26/21 15:12 Fibrites AdvReac neck pain Uncoded 08/26/21 15:12 Home Medications Medication Instructions Recorded Confirmed Type allopurinol 100 mg tablet 200 mg PO DAILY 10/20/18 08/26/21 History aspirin 81 mg tablet,delayed 81 mg PO Q OTHER DAY 10/20/18 08/26/21 History release cyanocobalamin (vitamin B-12) 500 1,000 mcg PO QAM 10/20/18 08/26/21 History mcg tablet gabapentin 400 mg capsule 400 mg PO HS 10/20/18 08/26/21 History levothyroxine 125 mcg tablet 125 mcg PO DAILY@0600 10/20/18 08/26/21 History metoprolol succinate 100 mg 100 mg PO QAM 10/20/18 08/26/21 History tablet,extended release 24 hr repaglinide 1 mg tablet 0 mg PO TIDM 07/22/21 08/26/21 History sitagliptin 25 mg tablet (Januvia) 25 mg PO DAILY 07/22/21 08/26/21 History furosemide 40 mg tablet 40 mg PO DAILY 08/26/21 08/26/21 History insulin glargine 100 unit/mL (3 10 unit SUBCUT QAM 08/26/21 08/26/21 History mL) subcutaneous pen (Basaglar KwikPen U-100 Insulin) isosorbide mononitrate 60 mg 30 mg PO QAM 08/26/21 08/26/21 History tablet,extended release 24 hr triamcinolone acetonide 0.1 % 1 applic TOPICAL BID 08/26/21 08/26/21 History topical cream Patient History Medical History Benign prostatic hyperplasia with urinary obstruction CAD (coronary artery disease) Status post inferior wall myocardial infarction in 1980 Status post January 1997 coronary bypass grafting x 3, receiving a RUSS graft to the LAD, a saphenous vein graft to the ramus, and a SVG to the 1st obtuse marginal. CHB (complete heart block) pt admitted for elective upgrade to biv icd. Underwent procedure without any complications and monitored overnight Diabetes DM type 2 (diabetes mellitus, type 2) Gout High cholesterol History of atrial fibrillation PAF HTN (hypertension) Hyperlipidemia Hypothyroidism ICD (implantable cardioverter-defibrillator) battery depletion Status post dual chamber pacemaker defibrillator implantation on March 11, 2004, generator exchanges on 07/09/2009, and November 11, 2014 using a [employer] XT [id number] device. Status post December 19, 2018 upgrade from a dual chamber implantable cardiac defibrillator to a biventricular rate responsive implantable cardiac defibrillator by Dr. Basurto at [facility]. Ischemic cardiomyopathy PPM upgraded to BiV ICD Osteoarthritis Stage 4 chronic kidney disease Baseline creatinine 2.4-2.8 range per records Systolic heart failure Tachy-pablo syndrome Transient ischemic attack (TIA) 2014 Urinary urgency V tach Hx Surgical History History of cardiac cath History of colonoscopy History of eye surgery History of implantable cardiac defibrillator (ICD) History of tonsillectomy History of tooth extraction History of transurethral resection of prostate TURP (02/20/18): LMA#4 (iGel) at [facility] Hx of CABG CABG x3 (1996)- RUSS-LAD, SVG-RAMUS, SVG TO OM1 Hx of transurethral resection of prostate ICD (implantable cardioverter-defibrillator) in place Implanted (2003); Generator change (2009) Family History Brother Prostate cancer Diabetes Coronary heart disease Mother Diabetes Stroke Coronary heart disease Father Stroke Social History Smoking Status: Unknown if ever smoked Second Hand Exposure: Yes (USED TO BE AT WORK (RETIRED 1996)); Hx Alcohol Use: No Hx Substance Use: No Preferred Language: Mohawk Communication Ability: Effective Inside Sales Lead Required: No Beliefs That Will Affect Care: None marital status: Current Living Situation: Spouse Feels Safe at Home: Yes Assistive Devices: None Review of Systems Constitutional: + weakness; no fever and no chills Eyes: no diplopia Ear, Nose, Mouth, Throat: + hearing loss Respiratory: + dyspnea (Chronic); no cough Cardiovascular: no chest pain Gastrointestinal: no abdominal pain, no nausea and no vomiting Genitourinary: + urinary hesitancy Musculoskeletal: no back pain Integumentary: no rash Neurologic: + generalized weakness Physical Exam Constitutional: well developed and well nourished; no acute distress Eyes: + anicteric sclerae ENMT: Ears: no external ear abnormality Neck: trachea midline Respiratory: normal respiratory effort; no respiratory distress and no labored breathing Cardiovascular: Rate/Rhythm: regular rate and regular rhythm Gastrointestinal (Abdomen): Abdomen is soft and nondistended. Bowel sounds are present. There is no rebound tenderness or guarding. There is no pain with palpation. Storm sign is negative. Musculoskeletal: No calf tenderness Skin: no rashes Neurologic: moves all extremities Psychiatric: A+Ox3, euthymic affect Results & Data ([facility]) Vital Signs (Past 12 Hours) Vital Signs Temp Pulse Pulse Resp BP BP Pulse Ox 08/26/21 19:45 36.4 C L 61 18 137/71 96 08/26/21 17:54 62 17 137/65 97 08/26/21 15:47 61 13 129/62 97 08/26/21 13:30 60 10 L 126/62 86 L 08/26/21 13:20 66 17 08/26/21 13:10 60 20 96 08/26/21 13:00 65 21 96 08/26/21 12:50 60 20 98 08/26/21 12:40 60 21 97 08/26/21 12:30 61 18 114/58 L 97 08/26/21 12:20 62 20 95 08/26/21 12:17 60 11 L 97 08/26/21 11:44 36.7 C 60 20 122/64 95 PG Care Time/CCT Total # of Minutes Spent Total Time Spent with Patient: Total time spent is greater than 50% in coordination of care (as documented) at patient's floor/unit and/or counseling patient: Coding Level of Care Code 70450 Inpt Consult Level 5 Diagnoses Cholelithiasis K80.20
[2021-08-26] MEDS: INSULIN ASPART PER UNIT SC SCH (21:25)
[2021-08-26] MEDS: ACETAMINOPHEN 325 MG TAB PO PRN (22:26)
[2021-08-26 23:23] LABS: Partial Thromboplastin Ratio > 5.1
[2021-08-26 23:34] LABS: Partial Thromboplastin Time > 139.0 Seconds (21.0-31.0)
[2021-08-27] MEDS ORDERED: traMADol HCL 50 MG TABLET PO PRN (01:32)
[2021-08-27] MEDS ORDERED: HYDROmorphone INJ 0.5 MG/0.5 ML SYR IV PRN (01:32)
[2021-08-27 01:54] LABS: Partial Thromboplastin Ratio 3.6
[2021-08-27] MEDS ORDERED: DOXYCYCLINE HYCLATE 100 MG in DEXTROSE 5% 100 ML IV STA (02:16)
--- NOTE | 2021-08-27 02:17 | Communication Note ---
Date of Service: August 27, 2021 Notified by RN of left lower leg pain and note of red and warm swelling on the upper anterior hightower with scab-like infection. AP LLE cellulitis/wound Add Doxycycline to antibiotic regimen for MRSA coverage. Will relay to AM provider.
[2021-08-27 02:38] LABS: Partial Thromboplastin Time 98.7 Seconds (21.0-31.0)
[2021-08-27] MEDS: metroNIDAZOLE 500 MG/100 ML BAG IV SCH ×2 (02:38→10:34)
[2021-08-27] MEDS: LEVOTHYROXINE SODIUM 125 MCG TABLET PO SCH (06:30)
[2021-08-27] MEDS: INSULIN ASPART PER UNIT SC SCH ×5 (07:05→20:45)
[2021-08-27] MEDS ORDERED: Nursing to Pharmacy Communication SCH ×2 (07:15→12:15)
--- NOTE | 2021-08-27 08:31 | Gastrointestinal Consultation ---
Date of Consultation August 27, 2021 Assessment & Plan (1) Cholelithiasis: 86 year male T2DM, CAD, ischemic cardiomyopathy EF 25%, atrial fibrillation not anticoagulated due to advanced age and fall risk, pacer/AICD in place, CKD stage IV, history of TIA admitted w/ weakness, started on IV heparin by the primary service given elevated d-dimer and troponin. GI asked to evaluate for persistent elevated transaminases and gallstones on imaging. He was to have US overnight, unclear if this was completed yet. DDX biliary obstruction, DILI etc. Serology last admission with + FATIMAH, + ASMA Negative AMA, CMV IGM, EBV IGM, acute hep panel NPO ABD US this AM Unable to have MRI Would continue IV ABX coverage wit Cipro/Flagyl Would need cardiology clearance prior to any endoscopic evaluation Will discuss with biliary service, appreciate general surgery evaluation Thank you for allowing us to participate in the care of this patient. Please call with any acute changes, questions or concerns. Please see addendum below with additional recommendation from my supervising physician. Supervising Physician Co-Signing Physician Notes Abd soft, eating [place] agree with further plan of care. History of Present Illness Reason for Consultation: elevated LFTs Requesting Physician: Cuate Attending Physician: Kilo Cuello MD History of Present Illness 86 year old male with history of T2DM, CAD, ischemic cardiomyopathy EF 25%, atrial fibrillation not anticoagulated due to advanced age and fall risk, pacer/AICD in place, CKD stage IV, history of TIA admitted through the ED with weakness. On arrival, labs show elevated D-dimer 5800, troponin 100.2 --> 84. EKG demonstrates a paced rhythm. CXR, head CT, LLE venous Doppler unremarkable, appears he was empirically started on IV heparin. GI was asked to evaluate for elevated LFTs. Known from prior admission. Was planned for OP EGD/EUS. He notes from GI standpoint he is feeling well. He is hungry this AM. But denies nausea, vomiting. Denies any GI symptoms leading up to discharge. No change in bowel habits. No fever, chills, CP, SOB. CTAP 2021: The gallbladder is distended and there are numerous small calcified gallstones. There is minimal pericholecystic infiltration. Correlate with clinical and laboratory findings for evidence of mild acute cholecystitis. If clinically warranted this could be further evaluated with a right upper quadrant ultrasound or possibly nuclear hepatobiliary scan.Cardiomegaly and cardiac pacemaker. Small left pleural effusion.Bilateral nephrolithiasis.. Bladder distention. ABD US 2021: No gallstones or biliary ductal dilatation. Exam compromised by suboptimal penetration. Largely obscured pancreas. TB 1.3, AST 51, ALT 161, ALKP 140 last admission Today, Tb 1.7, AST 85. ALT 185. ALKP 318 Allergies Allergies Allergy/AdvReac Type Severity Reaction Status Date / Time tamsulosin [From Flomax] AdvReac Severe Fainting Verified 08/26/21 15:12 amlodipine AdvReac Mild INSOMNIA Verified 08/26/21 15:12 Novocain SOLN Allergy Fever Uncoded 08/26/21 15:12 Fibrites AdvReac neck pain Uncoded 08/26/21 15:12 Home Medications Medication Instructions Recorded Confirmed Type allopurinol 100 mg tablet 200 mg PO DAILY 10/20/18 08/26/21 History aspirin 81 mg tablet,delayed 81 mg PO Q OTHER DAY 10/20/18 08/26/21 History release cyanocobalamin (vitamin B-12) 500 1,000 mcg PO QAM 10/20/18 08/26/21 History mcg tablet gabapentin 400 mg capsule 400 mg PO HS 10/20/18 08/26/21 History levothyroxine 125 mcg tablet 125 mcg PO DAILY@0600 10/20/18 08/26/21 History metoprolol succinate 100 mg 100 mg PO QA 10/20/18 08/26/21 History tablet,extended release 24 hr repaglinide 1 mg tablet 0 mg PO TIDM 07/22/21 08/26/21 History sitagliptin 25 mg tablet (Januvia) 25 mg PO DAILY 07/22/21 08/26/21 History furosemide 40 mg tablet 40 mg PO DAILY 08/26/21 08/26/21 History insulin glargine 100 unit/mL (3 10 unit SUBCUT QA 08/26/21 08/26/21 History mL) subcutaneous pen (Basaglar KwikPen U-100 Insulin) isosorbide mononitrate 60 mg 30 mg PO QA 08/26/21 08/26/21 History tablet,extended release 24 hr triamcinolone acetonide 0.1 % 1 applic TOPICAL BID 08/26/21 08/26/21 History topical cream Patient History Medical History Benign prostatic hyperplasia with urinary obstruction CAD (coronary artery disease) Status post inferior wall myocardial infarction in 1980 Status post January 1997 coronary bypass grafting x 3, receiving a RUSS graft to the LAD, a saphenous vein graft to the ramus, and a SVG to the 1st obtuse marginal. CHB (complete heart block) pt admitted for elective upgrade to biv icd. Underwent procedure without any complications and monitored overnight Diabetes DM type 2 (diabetes mellitus, type 2) Gout High cholesterol History of atrial fibrillation PAF HTN (hypertension) Hyperlipidemia Hypothyroidism ICD (implantable cardioverter-defibrillator) battery depletion Status post dual chamber pacemaker defibrillator implantation on March 11, 2004, generator exchanges on 07/09/2009, and November 11, 2014 using a [employer] XT DR [id number] device. Status post December 19, 2018 upgrade from a dual chamber implantable cardiac defibrillator to a biventricular rate responsive implantable cardiac defibrillator by Dr. Basurto at [facility]. Ischemic cardiomyopathy PPM upgraded to BiV ICD Osteoarthritis Stage 4 chronic kidney disease Baseline creatinine 2.4-2.8 range per records Systolic heart failure Tachy-pablo syndrome Transient ischemic attack (TIA) 2014 Urinary urgency V tach Hx Surgical History History of cardiac cath History of colonoscopy History of eye surgery History of implantable cardiac defibrillator (ICD) History of tonsillectomy History of tooth extraction History of transurethral resection of prostate TURP (02/20/18): LMA#4 (iGel) at [facility] Hx of CABG CABG x3 (1996)- RUSS-LAD, SVG-RAMUS, SVG TO OM1 Hx of transurethral resection of prostate ICD (implantable cardioverter-defibrillator) in place Implanted (2003); Generator change (2009) Family History Brother Prostate cancer Diabetes Coronary heart disease Mother Diabetes Stroke Coronary heart disease Father Stroke Social History Smoking Status: Never smoker Second Hand Exposure: No; Do You Dip or Chew Tobacco: No; Hx Alcohol Use: No Hx Substance Use: No Preferred Language: Malaysian Communication Ability: Effective Library Page Required: No Beliefs That Will Affect Care: None marital status: Current Living Situation: Spouse How many Children do You have: 4 Other Information That Helps Us Care for You: No Feels Safe at Home: Yes Safety Concerns: Feels Safe At This Time Assistive Devices: Cane and Walker Review of Systems Review of Systems: All systems reviewed & are unremarkable except as noted in HPI & below Physical Exam Constitutional: WD/WN, vitals as above Neck: normal visual inspection and trachea midline Respiratory: normal respiratory effort, lungs clear to auscultation Cardiovascular: Rate/Rhythm: regular rate and regular rhythm Gastrointestinal (Abdomen): normal bowel sounds, soft, nontender, no hepatosplenomegaly Skin: no rashes, warm and dry Results & Data ([facility]) Vital Signs (Past 12 Hours) Vital Signs Temp Pulse Pulse Pulse Resp BP Pulse Ox 08/27/21 07:46 36.7 C 88 18 131/63 97 08/27/21 04:00 36.8 C 71 16 140/74 95 08/27/21 03:24 36.4 C L 93 H 18 137/71 96 08/26/21 23:01 36.7 C 78 18 144/72 H 94 08/26/21 22:17 73 Laboratory Results 08/27/21 08/27/21 08/26/21 Range/Units 06:47 01:03 22:36 WBC (4.8-10.8) K/uL RBC (4.7-6.1) M/uL Hgb (14.0-18.0) g/dL Hct (42-52) % MCV (80-100) fL MCH (25-34) pg MCHC (32-36) g/dL RDW Std Deviation (36.4-46.3) fL RDW Coeff of [place] (11.5-14.5) % Plt Count (130-400) K/uL MPV (7.4-10.4) fL Immature Gran % (Auto) % Neut % (Auto) % Lymph % (Auto) % Gaines % (Auto) % Eos % (Auto) % Baso % (Auto) % Neut # (Auto) (1.4-6.5) K/uL Lymph # (Auto) (1.2-3.4) K/uL Gaines # (Auto) (0.11-0.59) K/uL Eos # (Auto) (0-0.5) K/uL Baso # (Auto) (0-0.2) K/uL Immature Gran # (Auto) (0.00-0.02) K/uL PT (9.0-12.0) Seconds INR (0.9-1.1) APTT 98.7 H* (21.0-31.0) Seconds PTT Ratio 3.6 D-Dimer (0-500) ug/L FEU Sodium (136-145) mmol/L Potassium Chloride (98-107) mmol/L Carbon Dioxide (21-32) mmol/L Anion Gap (3-11) BUN (6-23) mg/dl Creatinine (0.6-1.4) mg/dl Est Cr Clr Drug Dosing Est GFR ( Amer) ml/min Est GFR (Non-Af Amer) ml/min BUN/Creatinine Ratio (10-20) Glucose (70-99(Fasting)) mg/dl POC Glucose 144 H (70-99) mg/dl Calcium (8.5-10.1) mg/dl Magnesium (1.7-2.4) mg/dl Total Bilirubin (0.2-1.0) mg/dl Direct Bilirubin AST ALT (7-52) U/L Alkaline Phosphatase (34-104) U/L Troponin I High Sens 98.7 H* D (0-20) pg/ml Total Protein (6.0-8.3) gm/dl Albumin (3.4-5.0) gm/dl Lipase (11-82) U/L SARS-CoV-2, RNA, NAAT (NEGATIVE) 08/26/21 08/26/21 08/26/21 Range/Units 22:36 21:36 20:26 WBC (4.8-10.8) K/uL RBC (4.7-6.1) M/uL Hgb (14.0-18.0) g/dL Hct (42-52) % MCV (80-100) fL MCH (25-34) pg MCHC (32-36) g/dL RDW Std Deviation (36.4-46.3) fL RDW Coeff of [place] (11.5-14.5) % Plt Count (130-400) K/uL MPV (7.4-10.4) fL Immature Gran % (Auto) % Neut % (Auto) % Lymph % (Auto) % Gaines % (Auto) % Eos % (Auto) % Baso % (Auto) % Neut # (Auto) (1.4-6.5) K/uL Lymph # (Auto) (1.2-3.4) K/uL Gaines # (Auto) (0.11-0.59) K/uL Eos # (Auto) (0-0.5) K/uL Baso # (Auto) (0-0.2) K/uL Immature Gran # (Auto) (0.00-0.02) K/uL PT (9.0-12.0) Seconds INR (0.9-1.1) APTT > 139.0 H* (21.0-31.0) Seconds PTT Ratio > 5.1 D-Dimer (0-500) ug/L FEU Sodium (136-145) mmol/L Potassium Chloride (98-107) mmol/L Carbon Dioxide (21-32) mmol/L Anion Gap (3-11) BUN (6-23) mg/dl Creatinine (0.6-1.4) mg/dl Est Cr Clr Drug Dosing Est GFR ( Amer) ml/min Est GFR (Non-Af Amer) ml/min BUN/Creatinine Ratio (10-20) Glucose (70-99(Fasting)) mg/dl POC Glucose 107 H (70-99) mg/dl Calcium (8.5-10.1) mg/dl Magnesium (1.7-2.4) mg/dl Total Bilirubin (0.2-1.0) mg/dl Direct Bilirubin AST ALT (7-52) U/L Alkaline Phosphatase (34-104) U/L Troponin I High Sens Cancelled (0-20) pg/ml Total Protein (6.0-8.3) gm/dl Albumin (3.4-5.0) gm/dl Lipase (11-82) U/L SARS-CoV-2, RNA, NAAT (NEGATIVE) 08/26/21 08/26/21 08/26/21 Range/Units 16:03 15:35 14:00 WBC (4.8-10.8) K/uL RBC (4.7-6.1) M/uL Hgb (14.0-18.0) g/dL Hct (42-52) % MCV (80-100) fL MCH (25-34) pg MCHC (32-36) g/dL RDW Std Deviation (36.4-46.3) fL RDW Coeff of [place] (11.5-14.5) % Plt Count (130-400) K/uL MPV (7.4-10.4) fL Immature Gran % (Auto) % Neut % (Auto) % Lymph % (Auto) % Gaines % (Auto) % Eos % (Auto) % Baso % (Auto) % Neut # (Auto) (1.4-6.5) K/uL Lymph # (Auto) (1.2-3.4) K/uL Gaines # (Auto) (0.11-0.59) K/uL Eos # (Auto) (0-0.5) K/uL Baso # (Auto) (0-0.2) K/uL Immature Gran # (Auto) (0.00-0.02) K/uL PT (9.0-12.0) Seconds INR (0.9-1.1) APTT (21.0-31.0) Seconds PTT Ratio D-Dimer (0-500) ug/L FEU Sodium (136-145) mmol/L Potassium 4.1 Chloride (98-107) mmol/L Carbon Dioxide (21-32) mmol/L Anion Gap (3-11) BUN (6-23) mg/dl Creatinine (0.6-1.4) mg/dl Est Cr Clr Drug Dosing Est GFR ( Amer) ml/min Est GFR (Non-Af Amer) ml/min BUN/Creatinine Ratio (10-20) Glucose (70-99(Fasting)) mg/dl POC Glucose (70-99) mg/dl Calcium (8.5-10.1) mg/dl Magnesium (1.7-2.4) mg/dl Total Bilirubin (0.2-1.0) mg/dl Direct Bilirubin 0.7 H AST 85 H ALT (7-52) U/L Alkaline Phosphatase (34-104) U/L Troponin I High Sens 84.1 H* D (0-20) pg/ml Total Protein (6.0-8.3) gm/dl Albumin (3.4-5.0) gm/dl Lipase (11-82) U/L SARS-CoV-2, RNA, NAAT NEGATIVE (NEGATIVE) 08/26/21 08/26/21 08/26/21 Range/Units 12:15 12:15 12:15 WBC (4.8-10.8) K/uL RBC (4.7-6.1) M/uL Hgb (14.0-18.0) g/dL Hct (42-52) % MCV (80-100) fL MCH (25-34) pg MCHC (32-36) g/dL RDW Std Deviation (36.4-46.3) fL RDW Coeff of [place] (11.5-14.5) % Plt Count (130-400) K/uL MPV (7.4-10.4) fL Immature Gran % (Auto) % Neut % (Auto) % Lymph % (Auto) % Gaines % (Auto) % Eos % (Auto) % Baso % (Auto) % Neut # (Auto) (1.4-6.5) K/uL Lymph # (Auto) (1.2-3.4) K/uL Gaines # (Auto) (0.11-0.59) K/uL Eos # (Auto) (0-0.5) K/uL Baso # (Auto) (0-0.2) K/uL Immature Gran # (Auto) (0.00-0.02) K/uL PT (9.0-12.0) Seconds INR (0.9-1.1) APTT (21.0-31.0) Seconds PTT Ratio D-Dimer Cancelled (0-500) ug/L FEU Sodium 139 (136-145) mmol/L Potassium TNP Chloride 101 (98-107) mmol/L Carbon Dioxide 31 (21-32) mmol/L Anion Gap 7 (3-11) BUN 59 H (6-23) mg/dl Creatinine 2.52 H (0.6-1.4) mg/dl Est Cr Clr Drug Dosing Not Reportable Est GFR ( Amer) 26.1 ml/min Est GFR (Non-Af Amer) 22.5 ml/min BUN/Creatinine Ratio 23.4 H (10-20) Glucose 148 H (70-99(Fasting)) mg/dl POC Glucose (70-99) mg/dl Calcium 9.4 (8.5-10.1) mg/dl Magnesium 2.3 (1.7-2.4) mg/dl Total Bilirubin 1.7 H (0.2-1.0) mg/dl Direct Bilirubin TNP AST TNP ALT 185 H (7-52) U/L Alkaline Phosphatase 318 H (34-104) U/L Troponin I High Sens 100.2 H* (0-20) pg/ml Total Protein 6.2 (6.0-8.3) gm/dl Albumin 3.2 L (3.4-5.0) gm/dl Lipase 82 (11-82) U/L SARS-CoV-2, RNA, NAAT (NEGATIVE) 08/26/21 08/26/21 Range/Units 12:15 12:15 WBC 8.48 (4.8-10.8) K/uL RBC 4.27 L (4.7-6.1) M/uL Hgb 14.2 (14.0-18.0) g/dL Hct 43.0 (42-52) % MCV 100.7 H (80-100) fL MCH 33.3 (25-34) pg MCHC 33.0 (32-36) g/dL RDW Std Deviation 61.0 H (36.4-46.3) fL RDW Coeff of [place] 16.7 H (11.5-14.5) % Plt Count 181 (130-400) K/uL MPV 10.8 H (7.4-10.4) fL Immature Gran % (Auto) 0.4 % Neut % (Auto) 58.1 % Lymph % (Auto) 29.1 % Gaines % (Auto) 11.7 % Eos % (Auto) 0.6 % Baso % (Auto) 0.1 % Neut # (Auto) 4.93 (1.4-6.5) K/uL Lymph # (Auto) 2.47 (1.2-3.4) K/uL Gaines # (Auto) 0.99 H (0.11-0.59) K/uL Eos # (Auto) 0.05 (0-0.5) K/uL Baso # (Auto) 0.01 (0-0.2) K/uL Immature Gran # (Auto) 0.03 H (0.00-0.02) K/uL PT 10.7 (9.0-12.0) Seconds INR 1.0 (0.9-1.1) APTT 25.2 (21.0-31.0) Seconds PTT Ratio 0.9 D-Dimer 5870 H* (0-500) ug/L FEU Sodium (136-145) mmol/L Potassium Chloride (98-107) mmol/L Carbon Dioxide (21-32) mmol/L Anion Gap (3-11) BUN (6-23) mg/dl Creatinine (0.6-1.4) mg/dl Est Cr Clr Drug Dosing Est GFR ( Amer) ml/min Est GFR (Non-Af Amer) ml/min BUN/Creatinine Ratio (10-20) Glucose (70-99(Fasting)) mg/dl POC Glucose (70-99) mg/dl Calcium (8.5-10.1) mg/dl Magnesium (1.7-2.4) mg/dl Total Bilirubin (0.2-1.0) mg/dl Direct Bilirubin AST ALT (7-52) U/L Alkaline Phosphatase (34-104) U/L Troponin I High Sens (0-20) pg/ml Total Protein (6.0-8.3) gm/dl Albumin (3.4-5.0) gm/dl Lipase (11-82) U/L SARS-CoV-2, RNA, NAAT (NEGATIVE)
[2021-08-27 08:56] LABS: Hemoglobin 13.6 g/dL (14.0-18.0); Mean Corpuscular Hemoglobin 33.1 pg (25-34); Mean Corpuscular Hgb Conc 33.2 g/dL (32-36); Mean Corpuscular Volume 99.8 fL (80-100); Mean Platelet Volume 11.1 fL (7.4-10.4); Platelet Count 170 K/uL (130-400); RDW Coefficient of Variation 16.7 % (11.5-14.5); RDW Standard Deviation 60.4 fL (36.4-46.3); Red Blood Count 4.11 M/uL (4.7-6.1); White Blood Count 6.82 K/uL (4.8-10.8)
[2021-08-27] MEDS ORDERED: ASPIRIN 81 MG ECTAB PO SCH (09:00)
[2021-08-27 09:16] LABS: Albumin Globulin Ratio 1.3 (0.9-2); BUN Creatinine Ratio 24.3 (10-20); Bilirubin,Total 1.7 mg/dl (0.2-1.0); Calcium 8.8 mg/dl (8.5-10.1); Creatinine Clr Calc Pharmacy 26.5 ml/min; Est GFR (African American) 31.8 ml/min; Est GFR (Non-African American) 27.4 ml/min; Globulin 2.4 gm/dl (2.5-4.0); Potassium 4.2 mmol/L (3.5-5.1); Total Protein 5.4 gm/dl (6.0-8.3)
[2021-08-27 09:19] LABS: Partial Thromboplastin Ratio 2.9
--- NOTE | 2021-08-27 09:25 | Ultrasound Report ---
ABDOMINAL ULTRASOUND, RIGHT UPPER QUADRANT HISTORY: Abnormal gallbladder on CT. Elevated LFTs. ? choledocho, ? cholecystitis. COMPARISON: Abdomen and pelvis CT 08/26/2021. FINDINGS: Pancreas: The pancreas demonstrates a normal echotexture. Liver: Unremarkable. Gallbladder: No gallbladder wall thickening. There are few tiny stones/sludge.. CBD: 6 mm. Right kidney: No hydronephrosis. A few right renal cysts are noted. IMPRESSION: 1. A few tiny gallstones/sludge. No gallbladder wall thickening. 2. Normal caliber common bile duct. 3. Right renal cysts. ACT 112: Negative or not required by law. Electronically signed by: Edmond Han M.D. 08/27/2021 9:24 AM
--- NOTE | 2021-08-27 09:54 | Nuclear Medicine Report ---
NM pul perfusion CLINICAL HISTORY: elevated d dimer. COMPARISON STUDY: Chest 08/26/2021. TECHNIQUE: Immediately following the intravenous administration of 5 mCi of technetium 99 M MAA for t he perfusion scan, anterior, oblique, lateral, and posterior views of the chest were obtained. Ventil ation scan was not performed due to coronavirus protocols. FINDINGS: Cardiac silhouette is mildly enlarged. No perfusion defects identified within the lungs. Bi lateral hilar prominence is also noted. IMPRESSION: Essentially normal perfusion of the lungs. Therefore, this favors a very low probability scan. ACT 112: Negative or not required by law. Electronically signed by: Edmond Han M.D. 08/27/2021 9:52 AM
[2021-08-27] MEDS: allopurinoL 100 MG TAB PO SCH (10:33)
[2021-08-27] MEDS: METOPROLOL SUCC 50MG EXT REL TAB PO SCH (10:33)
[2021-08-27] MEDS: FUROSEMIDE 40 MG TAB PO SCH (10:33)
[2021-08-27] MEDS: ISOSORBIDE MONO EXTENDED REL 30 MG TABCR PO SCH (10:34)
[2021-08-27] MEDS: CYANOCOBALAMIN (B-12) 500 MCG TABLET PO SCH (10:34)
--- NOTE | 2021-08-27 11:14 | Cardiology Consultation ---
Date of Consultation August 27, 2021 Assessment & Plan (1) Elevated troponin: (2) Generalized weakness: (3) Biventricular automatic implantable cardioverter defibrillator in situ: (4) Ischemic cardiomyopathy: (5) Stage 4 chronic kidney disease: (6) Transaminitis: Patient is a complex 86-year-old male with underlying history as outlined above but includes longstanding ischemic cardiomyopathy with compensated chronic congestive heart failure status post BiV pacer defibrillator, past paroxysmal now persistent atrial fibrillation since March 2021 when amiodarone was discontinued. He has had past ventricular arrhythmias but no recent recurrences. Recently hospitalized following fall possible orthostatic dizziness. Medications reduced as outpatient. Patient presents now main complaint being weakness fatigue as well as persistent severe pain left knee and hightower. Currently undergoing evaluation for persistent transaminitis. Hemodynamically stable from cardiac standpoint EKGs without acute change. Echocardiogram unchanged from prior study other than perhaps slight improvement overall systolic function Troponin elevation mild and flat consistent patient's underlying chronic kidney disease no signs of acute coronary syndrome. No need for IV heparin for this indication Team contemplating ERCP. If clinically indicated patient may undergo procedure at elevated risk giving underlying morbidities History of Present Illness Reason for Consultation: Elevated troponin Requesting Physician: Dr. Cuello Attending Physician: Kilo Cuello MD History of Present Illness Patient is a complex 86-year-old male with ongoing medical issues which include 1. Long-standing history of ischemic heart disease 2. Status post inferior wall myocardial infarction in 1980 3. Status post January 1997 coronary bypass grafting x 3, receiving a RUSS graft to the LAD, a saphenous vein graft to the ramus, and a SVG to the 1st obtuse marginal. 4. Ischemic cardiomyopathy, EF 30 to 35 % with diffuse severe LV dysfunction. 5. NYHA Class 3 congestive heart failure. 6. CCS Class III angina pectoris 7. History of sustained monomorphic ventricular tachycardia 8. Chronic amiodarone therapy, initiated 09/04/2006. 9. Status post dual chamber pacemaker defibrillator implantation on March 11, 2004, generator exchanges on 07/09/2009, and November 11, 2014 using a Intell[employer] Evera XT [id number] device. 10. Status post December 19, 2018 upgrade from a dual chamber implantable cardiac defibrillator to a biventricular rate responsive implantable cardiac defibrillator by Dr. Basurto at [facility]. 11. Paroxysmal atrial fibrillation initially observed in July 2017 now persistent since March 2021 12. Hypertension 13. Hyperlipidemia 14. 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 Stage III IV chornic kidney disease 16. Transient ischemic attack, November 2014 17. Hypothyroidism 18. Gout Patient presented last evening with symptoms of worsening gait instability and weakness. Severe pain in the left knee and hightower. No syncope or near syncope. No chest pains or tachypalpitations. No abdominal pain or discomfort. Patient seen recently on 08/24/2021 in the outpatient setting by myself. Main complaints at that time being left knee pain with mild focal tenderness below the knee. At that time he is already undergone x-ray as well as vascular duplex of the lower extremity unrevealing. History was noted of mechanical fall possible orthostasis in June 2021 recent ongoing weight loss. Diuretics and nitrate dose reduced at that time Allergies Allergy/AdvReac Type Severity Reaction Status Date / Time tamsulosin [From Flomax] AdvReac Severe Fainting Verified 08/26/21 15:12 amlodipine AdvReac Mild INSOMNIA Verified 08/26/21 15:12 Novocain SOLN Allergy Fever Uncoded 08/26/21 15:12 Fibrites AdvReac neck pain Uncoded 08/26/21 15:12 Home Medications Medication Instructions Recorded Confirmed Type allopurinol 100 mg tablet 200 mg PO DAILY 10/20/18 08/26/21 History aspirin 81 mg tablet,delayed 81 mg PO Q OTHER DAY 10/20/18 08/26/21 History release cyanocobalamin (vitamin B-12) 500 1,000 mcg PO QAM 10/20/18 08/26/21 History mcg tablet gabapentin 400 mg capsule 400 mg PO HS 10/20/18 08/26/21 History levothyroxine 125 mcg tablet 125 mcg PO DAILY@0600 10/20/18 08/26/21 History metoprolol succinate 100 mg 100 mg PO QAM 10/20/18 08/26/21 History tablet,extended release 24 hr repaglinide 1 mg tablet 0 mg PO TIDM 07/22/21 08/26/21 History sitagliptin 25 mg tablet (Januvia) 25 mg PO DAILY 07/22/21 08/26/21 History furosemide 40 mg tablet 40 mg PO DAILY 08/26/21 08/26/21 History insulin glargine 100 unit/mL (3 10 unit SUBCUT QA 08/26/21 08/26/21 History mL) subcutaneous pen (Basaglar KwikPen U-100 Insulin) isosorbide mononitrate 60 mg 30 mg PO QAM 08/26/21 08/26/21 History tablet,extended release 24 hr triamcinolone acetonide 0.1 % 1 applic TOPICAL BID 08/26/21 08/26/21 History topical cream Patient History Medical History Benign prostatic hyperplasia with urinary obstruction CAD (coronary artery disease) Status post inferior wall myocardial infarction in 1980 Status post January 1997 coronary bypass grafting x 3, receiving a RUSS graft to the LAD, a saphenous vein graft to the ramus, and a SVG to the 1st obtuse marginal. CHB (complete heart block) pt admitted for elective upgrade to biv icd. Underwent procedure without any complications and monitored overnight Diabetes DM type 2 (diabetes mellitus, type 2) Gout High cholesterol History of atrial fibrillation PAF HTN (hypertension) Hyperlipidemia Hypothyroidism ICD (implantable cardioverter-defibrillator) battery depletion Status post dual chamber pacemaker defibrillator implantation on March 11, 2004, generator exchanges on 07/09/2009, and November 11, 2014 using a Exceleraa [id number] device. Status post December 19, 2018 upgrade from a dual chamber implantable cardiac defibrillator to a biventricular rate responsive implantable cardiac defibrillator by Dr. Basurto at [facility]. Ischemic cardiomyopathy PPM upgraded to BiV ICD Osteoarthritis Stage 4 chronic kidney disease Baseline creatinine 2.4-2.8 range per records Systolic heart failure Tachy-pablo syndrome Transient ischemic attack (TIA) 2014 Urinary urgency V tach Hx Surgical History History of cardiac cath History of colonoscopy History of eye surgery History of implantable cardiac defibrillator (ICD) History of tonsillectomy History of tooth extraction History of transurethral resection of prostate TURP (02/20/18): LMA#4 (iGel) at [facility] Hx of CABG CABG x3 (1996)- RUSS-LAD, SVG-RAMUS, SVG TO OM1 Hx of transurethral resection of prostate ICD (implantable cardioverter-defibrillator) in place Implanted (2003); Generator change (2009) Family History Brother Prostate cancer Diabetes Coronary heart disease Mother Diabetes Stroke Coronary heart disease Father Stroke Social History Smoking Status: Never smoker Second Hand Exposure: No; Do You Dip or Chew Tobacco: No; Hx Alcohol Use: No Hx Substance Use: No Preferred Language: Croatian Communication Ability: Effective Representative Phlebotomy Services Required: No Beliefs That Will Affect Care: None marital status: Current Living Situation: Spouse How many Children do You have: 4 Other Information That Helps Us Care for You: No Feels Safe at Home: Yes Safety Concerns: Feels Safe At This Time Assistive Devices: Cane and Walker Results & Data ([facility]) Vital Signs (Past 12 Hours) Vital Signs Temp Pulse Resp BP Pulse Ox 08/27/21 07:46 36.7 C 88 18 131/63 97 08/27/21 04:00 36.8 C 71 16 140/74 95 08/27/21 03:24 36.4 C L 93 H 18 137/71 96 Laboratory Results Laboratory Results - last 24 hr 08/26/21 08/26/21 08/26/21 12:15 12:15 12:15 WBC 8.48 RBC 4.27 L Hgb 14.2 Hct 43.0 MCV 100.7 H MCH 33.3 MCHC 33.0 RDW Std Deviation 61.0 H RDW Coeff of [place] 16.7 H Plt Count 181 MPV 10.8 H Immature Gran % (Auto) 0.4 Neut % (Auto) 58.1 Lymph % (Auto) 29.1 [place] % (Auto) 11.7 Eos % (Auto) 0.6 Baso % (Auto) 0.1 Neut # (Auto) 4.93 Lymph # (Auto) 2.47 [place] # (Auto) 0.99 H Eos # (Auto) 0.05 Baso # (Auto) 0.01 Immature Gran # (Auto) 0.03 H PT 10.7 INR 1.0 APTT 25.2 PTT Ratio 0.9 D-Dimer 5870 H* Sodium 139 Potassium TNP Chloride 101 Carbon Dioxide 31 Anion Gap 7 BUN 59 H Creatinine 2.52 H Est Cr Clr Drug Dosing Not Reportable Est GFR ( Amer) 26.1 Est GFR (Non-Af Amer) 22.5 BUN/Creatinine Ratio 23.4 H Glucose 148 H POC Glucose Calcium 9.4 Magnesium 2.3 Total Bilirubin 1.7 H Direct Bilirubin TNP AST TNP ALT 185 H Alkaline Phosphatase 318 H Troponin I High Sens Total Protein 6.2 Albumin 3.2 L Globulin Albumin/Globulin Ratio Lipase SARS-CoV-2, RNA, NAAT 08/26/21 08/26/21 08/26/21 12:15 12:15 14:00 WBC RBC Hgb Hct MCV MCH MCHC RDW Std Deviation RDW Coeff of [place] Plt Count MPV Immature Gran % (Auto) Neut % (Auto) Lymph % (Auto) [place] % (Auto) Eos % (Auto) Baso % (Auto) Neut # (Auto) Lymph # (Auto) [place] # (Auto) Eos # (Auto) Baso # (Auto) Immature Gran # (Auto) PT INR APTT PTT Ratio D-Dimer Cancelled Sodium Potassium 4.1 Chloride Carbon Dioxide Anion Gap BUN Creatinine Est Cr Clr Drug Dosing Est GFR ( Amer) Est GFR (Non-Af Amer) BUN/Creatinine Ratio Glucose POC Glucose Calcium Magnesium Total Bilirubin Direct Bilirubin 0.7 H AST 85 H ALT Alkaline Phosphatase Troponin I High Sens 100.2 H* Total Protein Albumin Globulin Albumin/Globulin Ratio Lipase 82 SARS-CoV-2, RNA, NAAT 08/26/21 08/26/21 08/26/21 15:35 16:03 20:26 WBC RBC Hgb Hct MCV MCH MCHC RDW Std Deviation RDW Coeff of [place] Plt Count MPV Immature Gran % (Auto) Neut % (Auto) Lymph % (Auto) [place] % (Auto) Eos % (Auto) Baso % (Auto) Neut # (Auto) Lymph # (Auto) [place] # (Auto) Eos # (Auto) Baso # (Auto) Immature Gran # (Auto) PT INR APTT PTT Ratio D-Dimer Sodium Potassium Chloride Carbon Dioxide Anion Gap BUN Creatinine Est Cr Clr Drug Dosing Est GFR ( Amer) Est GFR (Non-Af Amer) BUN/Creatinine Ratio Glucose POC Glucose 107 H Calcium Magnesium Total Bilirubin Direct Bilirubin AST ALT Alkaline Phosphatase Troponin I High Sens 84.1 H* D Total Protein Albumin Globulin Albumin/Globulin Ratio Lipase SARS-CoV-2, RNA, NAAT NEGATIVE 08/26/21 08/26/21 08/26/21 21:36 22:36 22:36 WBC RBC Hgb Hct MCV MCH MCHC RDW Std Deviation RDW Coeff of [place] Plt Count MPV Immature Gran % (Auto) Neut % (Auto) Lymph % (Auto) [place] % (Auto) Eos % (Auto) Baso % (Auto) Neut # (Auto) Lymph # (Auto) [place] # (Auto) Eos # (Auto) Baso # (Auto) Immature Gran # (Auto) PT INR APTT > 139.0 H* PTT Ratio > 5.1 D-Dimer Sodium Potassium Chloride Carbon Dioxide Anion Gap BUN Creatinine Est Cr Clr Drug Dosing Est GFR ( Amer) Est GFR (Non-Af Amer) BUN/Creatinine Ratio Glucose POC Glucose Calcium Magnesium Total Bilirubin Direct Bilirubin AST ALT Alkaline Phosphatase Troponin I High Sens Cancelled 98.7 H* D Total Protein Albumin Globulin Albumin/Globulin Ratio Lipase SARS-CoV-2, RNA, NAAT 08/27/21 08/27/21 08/27/21 01:03 06:47 08:25 WBC 6.82 RBC 4.11 L Hgb 13.6 L Hct 41.0 L MCV 99.8 MCH 33.1 MCHC 33.2 RDW Std Deviation 60.4 H RDW Coeff of [place] 16.7 H Plt Count 170 MPV 11.1 H Immature Gran % (Auto) Neut % (Auto) Lymph % (Auto) [place] % (Auto) Eos % (Auto) Baso % (Auto) Neut # (Auto) Lymph # (Auto) [place] # (Auto) Eos # (Auto) Baso # (Auto) Immature Gran # (Auto) PT INR APTT 98.7 H* PTT Ratio 3.6 D-Dimer Sodium Potassium Chloride Carbon Dioxide Anion Gap BUN Creatinine Est Cr Clr Drug Dosing Est GFR ( Amer) Est GFR (Non-Af Amer) BUN/Creatinine Ratio Glucose POC Glucose 144 H Calcium Magnesium Total Bilirubin Direct Bilirubin AST ALT Alkaline Phosphatase Troponin I High Sens Total Protein Albumin Globulin Albumin/Globulin Ratio Lipase SARS-CoV-2, RNA, NAAT 08/27/21 08/27/21 08:25 08:25 WBC RBC Hgb Hct MCV MCH MCHC RDW Std Deviation RDW Coeff of [place] Plt Count MPV Immature Gran % (Auto) Neut % (Auto) Lymph % (Auto) [place] % (Auto) Eos % (Auto) Baso % (Auto) Neut # (Auto) Lymph # (Auto) [place] # (Auto) Eos # (Auto) Baso # (Auto) Immature Gran # (Auto) PT INR APTT 80.0 H* PTT Ratio 2.9 D-Dimer Sodium 138 Potassium 4.2 Chloride 104 Carbon Dioxide 27 Anion Gap 7 BUN 52 H Creatinine 2.14 H D Est Cr Clr Drug Dosing 26.5 Est GFR ( Amer) 31.8 Est GFR (Non-Af Amer) 27.4 BUN/Creatinine Ratio 24.3 H Glucose 120 H POC Glucose Calcium 8.8 Magnesium Total Bilirubin 1.7 H Direct Bilirubin AST 131 H ALT 206 H Alkaline Phosphatase 470 H Troponin I High Sens Total Protein 5.4 L Albumin 3.0 L Globulin 2.4 L Albumin/Globulin Ratio 1.3 Lipase SARS-CoV-2, RNA, NAAT
--- NOTE | 2021-08-27 13:19 | Surgery Progress Note ---
Date of Service August 27, 2021 Assessment & Plan (1) Cholelithiasis: Plan: Many comorbidities. Does not appear to have any acute abdominal complaints. GI considering ERCP once cleared by cardiology. We will continue to follow from the periphery however no urgent surgical intervention indicated at this time. (2) Elevated d-dimer: (3) 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: (4) CKD (chronic kidney disease) stage 4, GFR 15-29 ml/min: (5) DM type 2 (diabetes mellitus, type 2): (6) Ischemic cardiomyopathy: Admission and Anticipated Discharge Date Admission Date: August 26, 2021 Subjective pt seen. feeling ok. denies abdominal pain/nausea. Physical Exam Constitutional: WD/WN, vitals as above no acute distress and not ill appearing Eyes: PERRL, conjunctivae normal, anicteric sclerae EOM intact bilaterally ENMT: external ear and nose normal, oropharynx normal Ears: no hearing impairment Neck: trachea midline, no thyromegaly Respiratory: normal respiratory effort; no respiratory distress and does not use accessory muscles Cardiovascular: Rate/Rhythm: regular rate and regular rhythm Gastrointestinal (Abdomen): soft. nt. nd. no palpable abnormalities. Skin: no rashes, warm and dry Psychiatric: Orientation: alert, oriented x 3 and cooperative Results & Data ([facility]) Vital Signs (Past 12 Hours) Vital Signs Temp Pulse Resp BP Pulse Ox 08/27/21 11:36 36.9 C 61 17 121/67 97 08/27/21 07:46 36.7 C 88 18 131/63 97 08/27/21 04:00 36.8 C 71 16 140/74 95 08/27/21 03:24 36.4 C L 93 H 18 137/71 96 PG Care Time/CCT Total # of Minutes Spent Total Time Spent with Patient: Total time spent is greater than 50% in coordination of care (as documented) at patient's floor/unit and/or counseling patient: Coding Level of Care Code 29289 Subseq Hosp Care Lvl 3 Diagnoses Cholelithiasis K80.20 Elevated d-dimer R79.89 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 I50.42 CKD (chronic kidney disease) stage 4, GFR 15-29 ml/min N18.4 DM type 2 (diabetes mellitus, type 2) E11.9 Ischemic cardiomyopathy I25.5
[2021-08-27] MEDS ORDERED: PIPERACILL/TAZOBAC CONSULT ACTIVE PRN (13:44)
[2021-08-27] MEDS ORDERED: PIPERACILLIN/TAZOBACTAM 3.375 GM in DEXTROSE 5% 100 ML IV ONE (14:00)
--- NOTE | 2021-08-27 15:10 | Orthopedic Consultation ---
Date of Consultation August 27, 2021 Assessment & Plan (1) Left knee pain: Left knee pain likely due to bone bruise/ soft tissue contusion vs osteoarthritis, 3V knee x rays ordered to better evaluate. May be a candidate for corticosteroid injection WBAT with walker to assist OOB with assist PT/OT Ice to left knee DVT prophylaxis: per primary Pain control: per primary Discussed with attending. Imaging pending, will continue to follow History of Present Illness Attending Physician: Kilo Cuello MD History of Present Illness Pt is a 86 year old male who was admitted for generalized weakness and leg pain. PMG sig for DM2, CKD stage 4, implanted cardiac defb, chronic heart failutre, cholelithiasis, HTN, ischemic cardiomyopathy. Patient complaining of left knee pain s/p fall 1 week ago. He has fallen a couple times the past couple weeks but this last time a week ago he fell and hit his knee and had pain in his knee. He also reports swelling. He was seen by his PCP who ordered duplex US that was benign and x-rays that were also benign. They told him and his that it was most likely soft tissue damage from the fall. Him and his say the swelling has gone down but he is still having pain. He says it is mostly pain inferior to his knee cap. He does endorse feeling of his knee giving out. He denies any clicking or catching. He has been icing it. He denies previous knee issues or surgeries. Allergies Allergy/AdvReac Type Severity Reaction Status Date / Time tamsulosin [From Flomax] AdvReac Severe Fainting Verified 08/26/21 15:12 amlodipine AdvReac Mild INSOMNIA Verified 08/26/21 15:12 Novocain SOLN Allergy Fever Uncoded 08/26/21 15:12 Fibrites AdvReac neck pain Uncoded 08/26/21 15:12 Home Medications Medication Instructions Recorded Confirmed Type allopurinol 100 mg tablet 200 mg PO DAILY 10/20/18 08/26/21 History aspirin 81 mg tablet,delayed 81 mg PO Q OTHER DAY 10/20/18 08/26/21 History release cyanocobalamin (vitamin B-12) 500 1,000 mcg PO QAM 10/20/18 08/26/21 History mcg tablet gabapentin 400 mg capsule 400 mg PO HS 10/20/18 08/26/21 History levothyroxine 125 mcg tablet 125 mcg PO DAILY@0600 10/20/18 08/26/21 History metoprolol succinate 100 mg 100 mg PO QAM 10/20/18 08/26/21 History tablet,extended release 24 hr repaglinide 1 mg tablet 0 mg PO TIDM 07/22/21 08/26/21 History sitagliptin 25 mg tablet (Januvia) 25 mg PO DAILY 07/22/21 08/26/21 History furosemide 40 mg tablet 40 mg PO DAILY 08/26/21 08/26/21 History insulin glargine 100 unit/mL (3 10 unit SUBCUT QAM 08/26/21 08/26/21 History mL) subcutaneous pen (Basaglar KwikPen U-100 Insulin) isosorbide mononitrate 60 mg 30 mg PO QAM 08/26/21 08/26/21 History tablet,extended release 24 hr triamcinolone acetonide 0.1 % 1 applic TOPICAL BID 08/26/21 08/26/21 History topical cream Patient History Medical History Benign prostatic hyperplasia with urinary obstruction CAD (coronary artery disease) Status post inferior wall myocardial infarction in 1980 Status post January 1997 coronary bypass grafting x 3, receiving a RUSS graft to the LAD, a saphenous vein graft to the ramus, and a SVG to the 1st obtuse marginal. CHB (complete heart block) pt admitted for elective upgrade to biv icd. Underwent procedure without any complications and monitored overnight Diabetes DM type 2 (diabetes mellitus, type 2) Gout High cholesterol History of atrial fibrillation PAF HTN (hypertension) Hyperlipidemia Hypothyroidism ICD (implantable cardioverter-defibrillator) battery depletion Status post dual chamber pacemaker defibrillator implantation on March 11, 2004, generator exchanges on 07/09/2009, and November 11, 2014 using a [employer]a [id number] device. Status post December 19, 2018 upgrade from a dual chamber implantable cardiac defibrillator to a biventricular rate responsive implantable cardiac defibrillator by Dr. Basurto at [facility]. Ischemic cardiomyopathy PPM upgraded to BiV ICD Osteoarthritis Stage 4 chronic kidney disease Baseline creatinine 2.4-2.8 range per records Systolic heart failure Tachy-pablo syndrome Transient ischemic attack (TIA) 2014 Urinary urgency V tach Hx Surgical History History of cardiac cath History of colonoscopy History of eye surgery History of implantable cardiac defibrillator (ICD) History of tonsillectomy History of tooth extraction History of transurethral resection of prostate TURP (02/20/18): LMA#4 (iGel) at [facility] Hx of CABG CABG x3 (1996)- RUSS-LAD, SVG-RAMUS, SVG TO OM1 Hx of transurethral resection of prostate ICD (implantable cardioverter-defibrillator) in place Implanted (2003); Generator change (2009) Family History Brother Prostate cancer Diabetes Coronary heart disease Mother Diabetes Stroke Coronary heart disease Father Stroke Social History Smoking Status: Never smoker Second Hand Exposure: No; Do You Dip or Chew Tobacco: No; Hx Alcohol Use: No Hx Substance Use: No Preferred Language: Ukrainian Communication Ability: Effective Bankruptcy Attorney Required: No Beliefs That Will Affect Care: None marital status: Current Living Situation: Spouse How many Children do You have: 4 Other Information That Helps Us Care for You: No Feels Safe at Home: Yes Safety Concerns: Feels Safe At This Time Assistive Devices: Cane and Walker Review of Systems Review of Systems: Per HPI Physical Exam Physical Exam: General: Pt laying in hospital bed AA&O, in NAD, calm and cooperative during exam Lower Extremity: Upon examination of left knee there are some small , scabbed abrasions noted. Minimal erythema noted. No knee effusion noted. No ecchymosis. ROM of knee 0-90 active, 0-110 passive. Pt limited due to pain/reported stiffness. Patella free and mobile with no pain. Pt has full ROM of ankle and all 5 digits. Negative Hoffmans. Pt has 3+/5 strength with resisted PF, 4+/5 with resisted DF compared to CL leg. SLR in tact. Calf supple and non tender. Ligaments in tact with varus/valgus stress. Negative anterior/posterior drawer. Negative Joanne. Negative Alecia. Slightly tender to palpate at medial aspect of popliteal space. Tender to palpate about pes anserine bursa and near tibial tubercle where abrasion/scab noted. NVI with sensation to light touch distally and good distal pulses present. Results & Data [facility]) Vital Signs (Past 12 Hours) Vital Signs Temp Pulse Resp BP Pulse Ox 08/27/21 11:36 36.9 C 61 17 121/67 97 08/27/21 07:46 36.7 C 88 18 131/63 97 08/27/21 04:00 36.8 C 71 16 140/74 95 08/27/21 03:24 36.4 C L 93 H 18 137/71 96 Diagnostic Findings X rays were done at [facility] - no record of report or images in the system
--- NOTE | 2021-08-27 15:19 | XRay Report ---
XR knee LT 3V HISTORY: 86 years-old Male left knee pain acute left-sided knee pain COMPARISON: None. TECHNIQUE: 3 views of the left knee FINDINGS: Surgical clips of the medial calf. Arterial calcifications. There is minimal tricompartmental osteoar thritis of the knee with trace joint effusion. No acute fracture, dislocation, or osteochondral defec t. IMPRESSION: No acute fracture. ACT 112: Negative or not required by law. The above report was generated using voice recognition software. It may contain grammatical, syntax o r spelling errors. Electronically signed by: Carlos Narvaez M.D. 08/27/2021 3:17 PM
--- NOTE | 2021-08-27 16:02 | Progress Notes ---
DATE OF SERVICE: 08/27/2021. Patient is seen in conjunction with Giovanna Da Silva. For further details, refer to her dictation. She an d I saw and evaluated together. I am in agreement with the plan. The patient has been having some frequent falls. One of these resulted in an abrasion on the front o f the left knee. He has reported pain from the ankle up to the knee. He has had a negative ultrasou nd done. He is afebrile. White count is normal. Three views of the left knee reveal no acute findings in terms of the fracture. There is no alterati on of patellar height. He has some degenerative change present. Negative for effusion and positive surgical clips. Report is noted. He is able to do a leg lift. There is no pain with movement of the hip or log rolling. Thigh are no ntender. He has no knee joint line tenderness, nor is there any effusion. Cruciates and collaterals are intact. Knee range of motion is 0 to about 120. He gets pain over the tibial tubercle area. T here is a Band-Aid there with a 1 cm eschar, which is removed revealing some granulating tissue under neath. There is marked out area where he had some erythema. There is no induration present. Some f aint erythema present in this general area like the tibial tubercle and the pes anserine bursal area; all are mildly tender to palpation. Calf is soft and supple without swelling or pitting edema. No tenderness. He has no tenderness of the ankle or foot. Posterior tibial is a trace dorsalis pedis 1 +. He has 5/5 ankle and toe plantar flexion, dorsiflexion, inversion and eversion strength with good range of motion of the ankle and he has intact strength across the knee. I suspect that he has pain related to his wound on the front of the knee. It looks like there may slade ve been some mild cellulitis present. He is on doxycycline. I do not think that he has internal fabiano angement of the knee causing his pain. Hold on an injection at this time. Treat the infection/cellu litis and hopefully this will resolve his symptoms. I would not want to give an injection into the k nee joint in such close proximity to potentially active infection either. We discussed that given his general decline recently with multiple reported falls, I recommend that h e always ambulate with a walker and have consulted PT and OT. We will continue to monitor. Job ID: [id number]
[2021-08-27] MEDS: HEPARIN SODIUM/DEXTROSE 25,000 UNITS/500 ML BAG IV SCH (16:42)
--- NOTE | 2021-08-27 16:45 | Hospitalist Progress Note ---
Date of Service August 27, 2021 Assessment & Plan (1) Generalized weakness: (2) Elevated troponin: Plan: Trend troponin Resting echo-unchanged from prior study and perhaps slight improvement with overall systolic function Orthostatic BPs, may need additional medication adjustment Patient's advanced age and multiple comorbid conditions likely contributing to his generalized weakness Cardiology consult-appreciate cardiology input and recommendation No evidence of ACS (3) Elevated d-dimer: Plan: Patient presenting from home with reports of generalized weakness, lightheadedness. Recently seen in cardiology clinic and found to be orthostatic, Lasix and isosorbide doses reduced. In the ED, D-dimer 5800, troponin 100.2 --> 84.1. EKG demonstrates a paced rhythm. No chest pain, patient saturating well on room air. Patient empirically started on IV heparin in the ED VQ scan is negative for any pulmonary embolism Prophylactic DVT management (4) Transaminitis: Plan: Noted during admission last month, at that time had a gallbladder ultrasound that was unremarkable CT ABD/pelvis today showing the gallbladder is distended and there are numerous small calcified gallstones. There is minimal pericholecystic infiltration. Correlate with clinical and laboratory findings for evidence of mild acute cholecystitis. Given gallstones noted on CT scan, ?? Choledocholithiasis Patient asymptomatic, afebrile, no leukocytosis Check RUQ US-did not show any features of acute cholecystitis but may have a tiny gallstone without any dilatation of the common bile duct Start IV Cipro and Flagyl-IV antibiotic has been changed to Zosyn Appreciate GI input and recommendation Appreciate surgery input and recommendation-no surgery as of now We will monitor CMP (5) Left knee pain: Plan: Had recent knee x-ray as an outpatient that was unremarkable for acute findings Ortho consult for possible steroid injection Appreciate Ortho input and recommendation for possible intra-articular steroid (6) CAD (coronary artery disease): Plan: As above (7) Ischemic cardiomyopathy: Plan: As above (8) 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: Plan: Appears compensated, continue home dose of furosemide Continue ASA, beta-corky, nitrate (9) CKD (chronic kidney disease) stage 4, GFR 15-29 ml/min: Plan: Baseline creatinine mid 2s- low 3s Creatinine 2.5 today Follow renal functions Creatinine remains stable (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: (12) Pacemaker: Plan: Device interrogation ordered (13) TIA (transient ischemic attack): Plan: History of Continue ASA, statin discontinued during recent admission due to transaminitis (14) DM type 2 (diabetes mellitus, type 2): Plan: Hgb A1c 9.2 07/2021 NovoLog per protocol while hospitalized (15) DVT prophylaxis: Plan: On IV heparin as above-discontinue IV heparin Will give subcu heparin 5000 unit 3 times daily for DVT prophylaxis Admission and Anticipated Discharge Date Admission Date: August 26, 2021 Subjective 08/27/2021 The patient was seen and examined in telemetry unit He complains to have generalized weakness and minimal abdominal discomfort No shortness of breath at rest No fever and no chills and no nausea no vomiting Review of Systems Review of Systems: All systems reviewed and are unremarkable except as noted below Physical Exam Physical Exam: Lying in bed comfortably Constitutional: well developed, well nourished, + ill appearing and + obese Eyes: PERRL, conjunctivae normal, anicteric sclerae ENMT: external ear and nose normal, oropharynx normal Neck: trachea midline, no thyromegaly Respiratory: + respiratory distress Auscultation: + diminished lung sounds and + crackles (Minimal crackles at the bases) Cardiovascular: Rate/Rhythm: regular rate and regular rhythm; not tachycardic Heart Sounds: normal S1 and normal S2; no murmur Extremities: + edema Gastrointestinal (Abdomen): Inspection/Auscultation: normal bowel sounds; abdomen not distended Percussion/Palpation: + abdomen tender (Minimal tenderness right upper quadrant) and abdomen soft Musculoskeletal: No acute arthritis in any joint Neurologic: Alert, awake and oriented x3. Generally weak and lethargic Results & Data Results & Data ([facility]) Vital Signs (Past 12 Hours) Vital Signs Temp Pulse Resp BP Pulse Ox 08/27/21 15:33 36.7 C 60 18 111/63 97 08/27/21 11:36 36.9 C 61 17 121/67 97 08/27/21 07:46 36.7 C 88 18 131/63 97 Laboratory Results Short CBC 08/27/21 Range/Units 08:25 WBC 6.82 (4.8-10.8) K/uL Hgb 13.6 L (14.0-18.0) g/dL Hct 41.0 L (42-52) % Plt Count 170 (130-400) K/uL BMP 08/27/21 08:25 Sodium 138 Potassium 4.2 Chloride 104 Carbon Dioxide 27 BUN 52 H Creatinine 2.14 H D Glucose 120 H Calcium 8.8 Liver Function 08/27/21 Range/Units 08:25 Total Bilirubin 1.7 H (0.2-1.0) mg/dl AST 131 H (13-39) U/L ALT 206 H (7-52) U/L Alkaline Phosphatase 470 H (34-104) U/L Albumin 3.0 L (3.4-5.0) gm/dl Medications Administered Current Inpatient Medications Acetaminophen (Acetaminophen 325 Mg Tab) 650 mg PO Q4H PRN PRN Reason: Pain or Fever Stop: 09/25/21 19:15 Last Admin: 08/26/21 22:26 Dose: 650 mg Documented by: Allopurinol (Allopurinol 100 Mg Tab) 200 mg PO DAILY TIMBO Stop: 09/26/21 08:59 Last Admin: 08/27/21 10:33 Dose: 200 mg Documented by: Aspirin (Aspirin 81 Mg Ectab) 81 mg PO Q2D TIMBO Stop: 09/26/21 08:59 Last Admin: 08/27/21 10:33 Dose: 81 mg Documented by: Cyanocobalamin (Cyanocobalamin (B-12) 500 Mcg Tablet) 1,000 mcg PO QAM TIMBO Stop: 09/26/21 08:59 Last Admin: 08/27/21 10:34 Dose: 1,000 mcg Documented by: Dextrose (Dextrose 50% 50 Ml Syringe) 25 - 50 ml IV UD PRN; Protocol PRN Reason: Hypoglycemia Protocol Stop: 09/25/21 19:15 Doxycycline Hyclate (Doxycycline Hyclate 100 Mg Cap) 100 mg PO BID TIMBO Stop: 09/03/21 20:59 Furosemide (Furosemide 40 Mg Tab) 40 mg PO DAILY TIMBO Stop: 09/26/21 08:59 Last Admin: 08/27/21 10:33 Dose: 40 mg Documented by: Gabapentin (Gabapentin 400 Mg Cap) 400 mg PO HS TIMBO Stop: 09/25/21 20:59 Last Admin: 08/26/21 20:51 Dose: 400 mg Documented by: Glucagon (Glucagon For Inj 1 Mg Vial) 1 mg SQ UD PRN; Protocol PRN Reason: Hypoglycemia Protocol Stop: 09/25/21 19:15 Glucose (Glucose 40% Gel 15 Gm Tube) 15 - 30 gm PO UD PRN; Protocol PRN Reason: Hypoglycemia Protocol Stop: 09/25/21 19:15 Glucose (Glucose 10 Tabs/Tube) 4 - 8 tabs PO UD PRN; Protocol PRN Reason: Hypoglycemia Protocol Stop: 09/25/21 19:15 Hydromorphone HCl (Hydromorphone Inj 0.5 Mg/0.5 Ml Syr) 0.25 mg IV Q6H PRN PRN Reason: Pain Stop: 09/10/21 01:31 Heparin Sodium/Dextrose (Heparin Sodium/Dextrose) 25,000 units in 500 mls @ 19 mls/hr IV .Q24H [facility]; Protocol Stop: 09/25/21 15:29 Last Titration: 08/27/21 10:11 Dose: 950 units/hr, 19 mls/hr Documented by: Piperacillin Sod/Tazobactam (Sod 3.375 gm/ Dextrose) 115 mls @ 28.75 mls/hr IV Q8H [facility]; Protocol Stop: 09/06/21 21:59 Insulin Aspart (Insulin Aspart Per Unit) 0 units [facility] Stop: 09/26/21 16:29 Isosorbide Mononitrate (Isosorbide [place] Extended Rel 30 Mg Tabcr) 30 mg PO [facility] Stop: 09/26/21 08:59 Last Admin: 08/27/21 10:34 Dose: 30 mg Documented by: Levothyroxine Sodium (Levothyroxine Sodium 125 Mcg Tablet) 125 [facility]cg [facility] Stop: 09/26/21 06:29 Last Admin: 08/27/21 06:30 Dose: 125 mcg Documented by: Metoprolol Succinate (Metoprolol Succ 50mg Ext Rel Tab) [facility] Stop: 09/26/21 08:59 Last Admin: 08/27/21 10:33 Dose: 100 mg Documented by: Miscellaneous (Carbohydrates For Hypoglycemia ) 15 - 30 gm PO UD PRN PRN Reason: Hypoglycemia Protocol Stop: 09/25/21 19:15 Miscellaneous Information (Piperacill/Tazobac Consult Active) 1 ea N/A UD PRN PRN Reason: Consult Stop: 09/26/21 13:43 Tramadol HCl (Tramadol Hcl 50 Mg Tablet) 25 - 50 mg PO Q4H PRN PRN Reason: Pain Stop: 09/26/21 01:31 Last Admin: 08/27/21 02:56 Dose: 50 mg Documented by: (1) CAD (coronary artery disease) Associated angina: without angina Coronary Disease-Associated Artery/Lesion type: unspecified vessel or lesion type [place] vs. transplanted heart: [place] heart Qualified Code(s): I25.10 - Atherosclerotic heart disease of [place] coronary artery without angina pectoris
[2021-08-27 16:53] LABS: Partial Thromboplastin Ratio 3.7
[2021-08-27 17:14] LABS: Partial Thromboplastin Time 101.6 Seconds (21.0-31.0)
[2021-08-27] MEDS ORDERED: CIPROFLOXACIN / D5W 400 MG/200 ML BAG IV SCH (19:00)
[2021-08-27] MEDS ORDERED: PROMETHAZINE HCL 6.25 MG in SODIUM CHLORIDE 0.9% 50 ML IV PRN (19:53)
[2021-08-27] MEDS: DOXYCYCLINE HYCLATE 100 MG CAP PO SCH (21:43)
[2021-08-27] MEDS: GABAPENTIN 400 MG CAP PO SCH (21:43)
[2021-08-27] MEDS: PIPERACILLIN/TAZOBACTAM 3.375 GM in DEXTROSE 5% 100 ML IV SCH (21:44)
[2021-08-27] MEDS ORDERED: HEPARIN SOD 5,000 UNIT/0.5 ML VIAL SQ SCH (22:00)
[2021-08-28] MEDS ORDERED: PROMETHAZINE HCL 12.5 MG in SODIUM CHLORIDE 0.9% 50 ML IV PRN (00:35)
--- NOTE | 2021-08-28 00:38 | Communication Note ---
Date of Service: August 28, 2021 Patient with nausea symptoms as per RN. Subsequent emesis of dark brown material. RN not sure if coffee-ground. Patient currently without belly pain as per RN. AP Possible UGI B N.p.o. IV PPI Hold aspirin, heparin subcu for now Will request AM provider to update GI service of developments.
[2021-08-28] MEDS ORDERED: PANTOprazole 40 MG in SYRINGE 0 ML IV ONE (00:45)
[2021-08-28 01:01] LABS: Eosinophils # (auto) 0.03 K/uL (0-0.5); Eosinophils % (auto) 0.5 %; Hematocrit (blood only) 37.5 % (42-52); Hemoglobin 12.6 g/dL (14.0-18.0); Immature Granulocytes # (auto) 0.05 K/uL (0.00-0.02); Immature Granulocytes % (auto) 0.8 %; Lymphocytes # (auto) 2.26 K/uL (1.2-3.4); Lymphocytes % (auto) 36.1 %; Mean Corpuscular Hemoglobin 34.1 pg (25-34); Mean Corpuscular Hgb Conc 33.6 g/dL (32-36); Mean Corpuscular Volume 101.4 fL (80-100); Mean Platelet Volume 11.2 fL (7.4-10.4); Monocytes % (auto) 12.8 %; Neutrophils # (auto) 3.12 K/uL (1.4-6.5); Neutrophils % (auto) 49.8 %; Platelet Count 172 K/uL (130-400); RDW Coefficient of Variation 16.6 % (11.5-14.5); RDW Standard Deviation 61.5 fL (36.4-46.3); White Blood Count 6.26 K/uL (4.8-10.8)
[2021-08-28 01:24] LABS: Albumin Globulin Ratio 1.2 (0.9-2); Albumin Level 2.8 gm/dl (3.4-5.0); BUN Creatinine Ratio 21.7 (10-20); Bilirubin,Total 1.9 mg/dl (0.2-1.0); Calcium 8.6 mg/dl (8.5-10.1); Creatinine Clr Calc Pharmacy 26.2 ml/min; Est GFR (African American) 31.3 ml/min; Globulin 2.4 gm/dl (2.5-4.0); Potassium 4.3 mmol/L (3.5-5.1); Total Protein 5.2 gm/dl (6.0-8.3)
[2021-08-28] MEDS ORDERED: PROMETHAZINE HCL 12.5 MG in SODIUM CHLORIDE 0.9% 50 ML IV STA (01:32)
[2021-08-28] MEDS: PANTOprazole 40 MG in DEXTROSE 5% 100 ML IV SCH ×5 (02:23→22:45)
[2021-08-28] MEDS: LEVOTHYROXINE SODIUM 125 MCG TABLET PO SCH (05:56)
[2021-08-28] MEDS: PIPERACILLIN/TAZOBACTAM 3.375 GM in DEXTROSE 5% 100 ML IV SCH ×3 (05:56→22:45)
[2021-08-28 06:48] LABS: Hematocrit (blood only) 39.6 % (42-52); Hemoglobin 13.3 g/dL (14.0-18.0)
[2021-08-28 06:59] LABS: INR 1.1 (0.9-1.1); Prothrombin Time 11.4 Seconds (9.0-12.0)
--- NOTE | 2021-08-28 07:40 | Electrocardiogram Report ---
Test Reason : Blood Pressure : / mmHG Vent. Rate : 071 BPM Atrial Rate : 288 BPM P-R Int : 000 ms QRS Dur : 170 ms QT Int : 470 ms P-R-T Axes : 000 -80 101 degrees QTc Int : 510 ms Ventricular-paced rhythm Underlying atrial fibrillation Abnormal ECG When compared with ECG of 26-AUG-2021 12:04, Vent. rate has increased BY 10 BPM Confirmed by Alphonso Daley ([id number]) on 08/28/2021 7:39:54 AM Referred By: REFERRED SELF Confirmed By:Alphonso Daley
[2021-08-28] MEDS: INSULIN ASPART PER UNIT SC SCH ×4 (09:02→21:10)
[2021-08-28] MEDS: FUROSEMIDE 40 MG TAB PO SCH (09:19)
[2021-08-28] MEDS: CYANOCOBALAMIN (B-12) 500 MCG TABLET PO SCH (09:19)
[2021-08-28] MEDS: METOPROLOL SUCC 50MG EXT REL TAB PO SCH (09:19)
[2021-08-28] MEDS: ISOSORBIDE MONO EXTENDED REL 30 MG TABCR PO SCH (09:19)
[2021-08-28] MEDS: allopurinoL 100 MG TAB PO SCH (09:20)
[2021-08-28] MEDS: DOXYCYCLINE HYCLATE 100 MG CAP PO SCH ×2 (09:20→20:26)
[2021-08-28] MEDS ORDERED: ALUMINUM/MAGNESIUM SUSP 30 ML UDC PO STA (10:54)
--- NOTE | 2021-08-28 11:31 | Surgery Progress Note ---
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 Subjective 08/27/2021 The patient was seen and examined in telemetry unit He complains to have generalized weakness and minimal abdominal discomfort No shortness of breath at rest No fever and no chills and no nausea no vomiting 08/28/2021 11:28AM, Haider Hartley, F/U elevated LFTs pt is stable, no significant abdominal pain, some nausea, no vomiting, no fever, Physical Exam Constitutional: WD/WN, vitals as above Eyes: PERRL, conjunctivae normal, anicteric sclerae Neck: trachea midline, no thyromegaly Respiratory: normal respiratory effort, lungs clear to auscultation Cardiovascular: RRR, no murmur, no edema Gastrointestinal (Abdomen): soft, NT, ND, BS + Neurologic: patellar DTR's 2+ bilat, sensation intact Psychiatric: A+Ox3, euthymic affect Results & Data ([facility]) Vital Signs (Past 12 Hours) Vital Signs Temp Pulse Pulse Resp BP BP Pulse Ox 08/28/21 11:03 36.4 C L 59 L 19 137/70 96 08/28/21 08:00 60 08/28/21 07:40 36.7 C 57 L 17 118/67 96 08/28/21 03:38 36.7 C 66 18 100/61 95 08/28/21 00:40 60 Laboratory Results Abnormal lab results 08/27/21 08/27/21 08/27/21 Range/Units 11:58 16:15 16:21 RBC (4.7-6.1) M/uL Hgb (14.0-18.0) g/dL Hct (42-52) % MCV (80-100) fL MCH (25-34) pg RDW Std Deviation (36.4-46.3) fL RDW Coeff of [place] (11.5-14.5) % MPV (7.4-10.4) fL [place] # (Auto) (0.11-0.59) K/uL Immature Gran # (Auto) (0.00-0.02) K/uL APTT 101.6 H* (21.0-31.0) Seconds BUN (6-23) mg/dl Creatinine (0.6-1.4) mg/dl BUN/Creatinine Ratio (10-20) Glucose (70-99(Fasting)) mg/dl POC Glucose 171 H 186 H (70-99) mg/dl Total Bilirubin (0.2-1.0) mg/dl AST (13-39) U/L ALT (7-52) U/L Alkaline Phosphatase (34-104) U/L Total Protein (6.0-8.3) gm/dl Albumin (3.4-5.0) gm/dl Globulin (2.5-4.0) gm/dl 08/27/21 08/28/21 08/28/21 Range/Units 19:57 00:42 00:42 RBC 3.70 L (4.7-6.1) M/uL Hgb 12.6 L (14.0-18.0) g/dL Hct 37.5 L (42-52) % MCV 101.4 H (80-100) fL MCH 34.1 H (25-34) pg RDW Std Deviation 61.5 H (36.4-46.3) fL RDW Coeff of [place] 16.6 H (11.5-14.5) % MPV 11.2 H (7.4-10.4) fL [place] # (Auto) 0.80 H (0.11-0.59) K/uL Immature Gran # (Auto) 0.05 H (0.00-0.02) K/uL APTT (21.0-31.0) Seconds BUN 47 H (6-23) mg/dl Creatinine 2.17 H (0.6-1.4) mg/dl BUN/Creatinine Ratio 21.7 H (10-20) Glucose 125 H (70-99(Fasting)) mg/dl POC Glucose 136 H (70-99) mg/dl Total Bilirubin 1.9 H (0.2-1.0) mg/dl AST 110 H (13-39) U/L ALT 193 H (7-52) U/L Alkaline Phosphatase 402 H (34-104) U/L Total Protein 5.2 L (6.0-8.3) gm/dl Albumin 2.8 L (3.4-5.0) gm/dl Globulin 2.4 L (2.5-4.0) gm/dl 08/28/21 08/28/21 08/28/21 Range/Units 06:24 07:06 11:15 RBC (4.7-6.1) M/uL Hgb 13.3 L (14.0-18.0) g/dL Hct 39.6 L (42-52) % MCV (80-100) fL MCH (25-34) pg RDW Std Deviation (36.4-46.3) fL RDW Coeff of [place] (11.5-14.5) % MPV (7.4-10.4) fL [place] # (Auto) (0.11-0.59) K/uL Immature Gran # (Auto) (0.00-0.02) K/uL APTT (21.0-31.0) Seconds BUN (6-23) mg/dl Creatinine (0.6-1.4) mg/dl BUN/Creatinine Ratio (10-20) Glucose (70-99(Fasting)) mg/dl POC Glucose 137 H 125 H (70-99) mg/dl Total Bilirubin (0.2-1.0) mg/dl AST (13-39) U/L ALT (7-52) U/L Alkaline Phosphatase (34-104) U/L Total Protein (6.0-8.3) gm/dl Albumin (3.4-5.0) gm/dl Globulin (2.5-4.0) gm/dl Diagnostic Findings BDOMINAL ULTRASOUND, RIGHT UPPER QUADRANT HISTORY: Abnormal gallbladder on CT. Elevated LFTs. ? choledocho, ? cholecystitis. COMPARISON: Abdomen and pelvis CT 08/26/2021. FINDINGS: Pancreas: The pancreas demonstrates a normal echotexture. Liver: Unremarkable. Gallbladder: No gallbladder wall thickening. There are few tiny stones/sludge.. CBD: 6 mm. Right kidney: No hydronephrosis. A few right renal cysts are noted. IMPRESSION: 1. A few tiny gallstones/sludge. No gallbladder wall thickening. 2. Normal caliber common bile duct. 3. Right renal cysts.
[2021-08-28 11:37] LABS: Gastric Occult Blood Negative (Negative); pH Gastric Fluid 7+
[2021-08-28 12:01] LABS: Hematocrit (blood only) 41.9 % (42-52); Hemoglobin 14.1 g/dL (14.0-18.0)
--- NOTE | 2021-08-28 13:44 | Hospitalist Progress Note ---
Date of Service August 28, 2021 Assessment & Plan (1) Generalized weakness: Plan: Suspected GI bleed Has been getting intravenous Protonix No evidence of hematemesis and melena Hemoglobin remains stable at 14.1 (2) Elevated troponin: Plan: Trend troponin Resting echo-unchanged from prior study and perhaps slight improvement with overall systolic function Orthostatic BPs, may need additional medication adjustment Patient's advanced age and multiple comorbid conditions likely contributing to his generalized weakness Cardiology consult-appreciate cardiology input and recommendation No evidence of ACS No cardiac symptoms and remains hemodynamically stable (3) Elevated d-dimer: Plan: Patient presenting from home with reports of generalized weakness, lightheadedness. Recently seen in cardiology clinic and found to be orthostatic, Lasix and isosorbide doses reduced. In the ED, D-dimer 5800, troponin 100.2 --> 84.1. EKG demonstrates a paced rhythm. No chest pain, patient saturating well on room air. Patient empirically started on IV heparin in the ED VQ scan is negative for any pulmonary embolism Prophylactic DVT management (4) Transaminitis: Plan: Noted during admission last month, at that time had a gallbladder ultrasound that was unremarkable CT ABD/pelvis today showing the gallbladder is distended and there are numerous small calcified gallstones. There is minimal pericholecystic infiltration. Correlate with clinical and laboratory findings for evidence of mild acute cholecystitis. Given gallstones noted on CT scan, ?? Choledocholithiasis Patient asymptomatic, afebrile, no leukocytosis Check RUQ US-did not show any features of acute cholecystitis but may have a tiny gallstone without any dilatation of the common bile duct Start IV Cipro and Flagyl-IV antibiotic has been changed to Zosyn Appreciate GI input and recommendation Appreciate surgery input and recommendation-no surgery as of now We will monitor CMP-LFTs remain elevated but is not worsening Cholelithiasis No evidence of acute cholecystitis Check RUQ US-did not show any features of acute cholecystitis but may have a tiny gallstone without any dilatation of the common bile duct Start IV Cipro and Flagyl-IV antibiotic has been changed to Zosyn Likely the cause for the abdominal discomfort and transaminitis Appreciate surgery and GI input Possible ERCP and surgery down the line (5) Left knee pain: Plan: Had recent knee x-ray as an outpatient that was unremarkable for acute findings Ortho consult for possible steroid injection Appreciate Ortho input and recommendation for possible intra-articular steroid (6) CAD (coronary artery disease): Plan: As above (7) Ischemic cardiomyopathy: Plan: As above (8) 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: Plan: Appears compensated, continue home dose of furosemide Continue ASA, beta-corky, nitrate (9) CKD (chronic kidney disease) stage 4, GFR 15-29 ml/min: Plan: Baseline creatinine mid 2s- low 3s Creatinine 2.5 today Follow renal functions Creatinine remains stable (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: (12) Pacemaker: Plan: Device interrogation ordered (13) TIA (transient ischemic attack): Plan: History of Continue ASA, statin discontinued during recent admission due to transaminitis (14) DM type 2 (diabetes mellitus, type 2): Plan: Hgb A1c 9.2 07/2021 NovoLog per protocol while hospitalized (15) DVT prophylaxis: Plan: On IV heparin as above-discontinue IV heparin Will give subcu heparin 5000 unit 3 times daily for DVT prophylaxis Admission and Anticipated Discharge Date Admission Date: August 26, 2021 Subjective 08/27/2021 The patient was seen and examined in telemetry unit He complains to have generalized weakness and minimal abdominal discomfort No shortness of breath at rest No fever and no chills and no nausea no vomiting 08/28/2021 The patient was seen and examined in telemetry unit He has had some nausea with vomiting last night and was on n.p.o. His blood counts remained stable and hemoglobin is a stable to Denies any abdominal pain but does have discomfort without any distention No chest pain, shortness of breath Left knee pain is reasonable Review of Systems Review of Systems: All systems reviewed and are unremarkable except as noted below Gastrointestinal: Minimal discomfort in the upper abdomen and epigastrium without any distention Physical Exam Physical Exam: Lying in bed comfortably Constitutional: well developed, well nourished, + ill appearing and + obese Eyes: PERRL, conjunctivae normal, anicteric sclerae ENMT: external ear and nose normal, oropharynx normal Neck: trachea midline, no thyromegaly Respiratory: + respiratory distress Auscultation: + diminished lung sounds and + crackles (Minimal crackles at the bases) Cardiovascular: Rate/Rhythm: regular rate and regular rhythm; not tachycardic Heart Sounds: normal S1 and normal S2; no murmur Extremities: + edema Gastrointestinal (Abdomen): Inspection/Auscultation: normal bowel sounds; abdomen not distended Percussion/Palpation: + abdomen tender (Minimal tenderness right upper quadrant) and abdomen soft Musculoskeletal: No acute arthritis in any joint Neurologic: Alert, awake and oriented x3 Psychiatric: A+Ox3, euthymic affect Lymphatic: no cervical or axillary lymphadenopathy Results & Data Results & Data ([facility]) Vital Signs (Past 12 Hours) Vital Signs Temp Pulse Pulse Resp BP BP Pulse Ox 08/28/21 11:03 36.4 C L 59 L 19 137/70 96 08/28/21 08:00 60 08/28/21 07:40 36.7 C 57 L 17 118/67 96 08/28/21 03:38 36.7 C 66 18 100/61 95 Laboratory Results Short CBC 08/28/21 08/28/21 08/28/21 Range/Units 00:42 06:24 11:46 WBC 6.26 (4.8-10.8) K/uL Hgb 12.6 L 13.3 L 14.1 (14.0-18.0) g/dL Hct 37.5 L 39.6 L 41.9 L (42-52) % Plt Count 172 (130-400) K/uL BMP 08/28/21 00:42 Sodium 140 Potassium 4.3 Chloride 106 Carbon Dioxide 28 BUN 47 H Creatinine 2.17 H Glucose 125 H Calcium 8.6 Liver Function 08/28/21 Range/Units 00:42 Total Bilirubin 1.9 H (0.2-1.0) mg/dl AST 110 H (13-39) U/L ALT 193 H (7-52) U/L Alkaline Phosphatase 402 H (34-104) U/L Albumin 2.8 L (3.4-5.0) gm/dl Medications Administered Current Inpatient Medications Acetaminophen (Acetaminophen 325 Mg Tab) 650 mg PO Q4H PRN PRN Reason: Pain or Fever Stop: 09/25/21 19:15 Last Admin: 08/26/21 22:26 Dose: 650 mg Documented by: Allopurinol (Allopurinol 100 Mg Tab) 200 mg PO DAILY TIMBO Stop: 09/26/21 08:59 Last Admin: 08/28/21 09:20 Dose: 200 mg Documented by: Aspirin (Aspirin 81 Mg Ectab) 81 mg PO Q2D TIMBO Stop: 09/26/21 08:59 Last Admin: 08/27/21 10:33 Dose: 81 mg Documented by: Cyanocobalamin (Cyanocobalamin (B-12) 500 Mcg Tablet) 1,000 mcg PO QAM TIMBO Stop: 09/26/21 08:59 Last Admin: 08/28/21 09:19 Dose: 1,000 mcg Documented by: Dextrose (Dextrose 50% 50 Ml Syringe) 25 - 50 ml IV UD PRN; Protocol PRN Reason: Hypoglycemia Protocol Stop: 09/25/21 19:15 Doxycycline Hyclate (Doxycycline Hyclate 100 Mg Cap) 100 mg PO BID TIMBO Stop: 09/03/21 20:59 Last Admin: 08/28/21 09:20 Dose: 100 mg Documented by: Furosemide (Furosemide 40 Mg Tab) 40 mg PO DAILY TIMBO Stop: 09/26/21 08:59 Last Admin: 08/28/21 09:19 Dose: 40 mg Documented by: Gabapentin (Gabapentin 400 Mg Cap) 400 mg PO HS TIMBO Stop: 09/25/21 20:59 Last Admin: 08/27/21 21:43 Dose: 400 mg Documented by: Glucagon (Glucagon For Inj 1 Mg Vial) 1 mg SQ UD PRN; Protocol PRN Reason: Hypoglycemia Protocol Stop: 09/25/21 19:15 Glucose (Glucose 40% Gel 15 Gm Tube) 15 - 30 gm PO UD PRN; Protocol PRN Reason: Hypoglycemia Protocol Stop: 09/25/21 19:15 Glucose (Glucose 10 Tabs/Tube) 4 - 8 tabs PO UD PRN; Protocol PRN Reason: Hypoglycemia Protocol Stop: 09/25/21 19:15 Heparin Sodium (Porcine) (Heparin Sod 5,000 Unit/0.5 Ml Vial) 5,000 units SQ Q8 TIMBO Stop: 09/26/21 21:59 Last Admin: 08/27/21 21:43 Dose: 5,000 units Documented by: Hydromorphone HCl (Hydromorphone Inj 0.5 Mg/0.5 Ml Syr) 0.25 mg IV Q6H PRN PRN Reason: Pain Stop: 09/10/21 01:31 Piperacillin Sod/Tazobactam (Sod 3.375 gm/ Dextrose) 115 mls @ 28.75 mls/hr IV Q8H [facility]; Protocol Stop: 09/06/21 21:59 Last Infusion: 08/28/21 10:32 Dose: Infused Documented by: Promethazine HCl 12.5 mg/ (Sodium Chloride) 50.5 mls @ 202 mls/hr IV Q6H PRN PRN Reason: Nausea And Vomiting Stop: 09/27/21 00:34 Pantoprazole Sodium 40 mg/ (Dextrose) 100 mls @ 20 mls/hr IV Q5H [facility] Stop: 09/27/21 02:14 Last Admin: 08/28/21 09:21 Dose: 8 mg/hr, 20 mls/hr Documented by: Insulin Aspart (Insulin Aspart Per Unit) 0 units SC ACHS [facility] Stop: 09/26/21 16:29 Last Admin: 08/28/21 12:32 Dose: Not Given Documented by: Isosorbide Mononitrate (Isosorbide [place] Extended Rel 30 Mg Tabcr) [facility] [place] Stop: 09/26/21 08:59 Last Admin: 08/28/21 09:19 Dose: 30 mg Documented by: Levothyroxine Sodium (Levothyroxine Sodium 125 Mcg Tablet) 125 mcg PO DAILYBB [facility] Stop: 09/26/21 06:29 Last Admin: 08/28/21 05:56 Dose: 125 mcg Documented by: Metoprolol Succinate (Metoprolol Succ 50mg Ext Rel Tab) 100 mg PO QAM [facility] Stop: 09/26/21 08:59 Last Admin: 08/28/21 09:19 Dose: 100 mg Documented by: Miscellaneous (Carbohydrates For Hypoglycemia ) 15 - 30 gm PO UD PRN PRN Reason: Hypoglycemia Protocol Stop: 09/25/21 19:15 Miscellaneous Information (Piperacill/Tazobac Consult Active) 1 ea N/A UD PRN PRN Reason: Consult Stop: 09/26/21 13:43 Tramadol HCl (Tramadol Hcl 50 Mg Tablet) 25 - 50 mg PO Q4H PRN PRN Reason: Pain Stop: 09/26/21 01:31 Last Admin: 08/27/21 02:56 Dose: 50 mg Documented by: (1) CAD (coronary artery disease) Associated angina: without angina Coronary Disease-Associated Artery/Lesion type: unspecified vessel or lesion type [place] vs. transplanted heart: [place] heart Qualified Code(s): I25.10 - Atherosclerotic heart disease of [place] coronary artery without angina pectoris
[2021-08-28] MEDS: GABAPENTIN 400 MG CAP PO SCH (20:26)
[2021-08-28] MEDS: CLOTRIMAZOLE 10 MG TROCHE BUCCAL SCH (23:39)
[2021-08-29] MEDS: PANTOprazole 40 MG in DEXTROSE 5% 100 ML IV SCH ×5 (03:43→23:49)
[2021-08-29 05:12] LABS: Basophils # (auto) 0.01 K/uL (0-0.2); Basophils % (auto) 0.2 %; Eosinophils # (auto) 0.06 K/uL (0-0.5); Eosinophils % (auto) 1.1 %; Hematocrit (blood only) 39.6 % (42-52); Immature Granulocytes # (auto) 0.03 K/uL (0.00-0.02); Immature Granulocytes % (auto) 0.5 %; Lymphocytes # (auto) 2.14 K/uL (1.2-3.4); Lymphocytes % (auto) 38.4 %; Mean Corpuscular Hemoglobin 33.1 pg (25-34); Mean Corpuscular Hgb Conc 32.8 g/dL (32-36); Mean Corpuscular Volume 100.8 fL (80-100); Mean Platelet Volume 10.7 fL (7.4-10.4); Monocytes # (auto) 0.86 K/uL (0.11-0.59); Monocytes % (auto) 15.4 %; Neutrophils # (auto) 2.48 K/uL (1.4-6.5); Neutrophils % (auto) 44.4 %; Platelet Count 166 K/uL (130-400); RDW Coefficient of Variation 16.5 % (11.5-14.5); RDW Standard Deviation 61.4 fL (36.4-46.3); Red Blood Count 3.93 M/uL (4.7-6.1); White Blood Count 5.58 K/uL (4.8-10.8)
[2021-08-29 05:34] LABS: Albumin Globulin Ratio 1.1 (0.9-2); Albumin Level 2.7 gm/dl (3.4-5.0); BUN Creatinine Ratio 17.1 (10-20); Bilirubin,Total 2.3 mg/dl (0.2-1.0); Calcium 8.7 mg/dl (8.5-10.1); Creatinine Clr Calc Pharmacy 25.6 ml/min; Est GFR (African American) 30.4 ml/min; Est GFR (Non-African American) 26.2 ml/min; Globulin 2.4 gm/dl (2.5-4.0); Potassium 4.1 mmol/L (3.5-5.1); Total Protein 5.1 gm/dl (6.0-8.3)
[2021-08-29] MEDS: CLOTRIMAZOLE 10 MG TROCHE BUCCAL SCH ×5 (06:13→22:53)
[2021-08-29] MEDS: LEVOTHYROXINE SODIUM 125 MCG TABLET PO SCH (06:13)
[2021-08-29] MEDS: PIPERACILLIN/TAZOBACTAM 3.375 GM in DEXTROSE 5% 100 ML IV SCH ×3 (06:13→22:52)
[2021-08-29] MEDS: INSULIN ASPART PER UNIT SC SCH ×4 (08:30→20:16)
[2021-08-29] MEDS: allopurinoL 100 MG TAB PO SCH (08:33)
[2021-08-29] MEDS: ISOSORBIDE MONO EXTENDED REL 30 MG TABCR PO SCH (08:33)
[2021-08-29] MEDS: DOXYCYCLINE HYCLATE 100 MG CAP PO SCH ×2 (08:33→20:17)
[2021-08-29] MEDS: METOPROLOL SUCC 50MG EXT REL TAB PO SCH (08:33)
[2021-08-29] MEDS: CYANOCOBALAMIN (B-12) 500 MCG TABLET PO SCH (08:33)
[2021-08-29] MEDS: FUROSEMIDE 40 MG TAB PO SCH (09:11)
--- NOTE | 2021-08-29 09:33 | Surgery Progress Note ---
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 Subjective 08/27/2021 The patient was seen and examined in telemetry unit He complains to have generalized weakness and minimal abdominal discomfort No shortness of breath at rest No fever and no chills and no nausea no vomiting 08/28/2021 The patient was seen and examined in telemetry unit He has had some nausea with vomiting last night and was on n.p.o. His blood counts remained stable and hemoglobin is a stable to Denies any abdominal pain but does have discomfort without any distention No chest pain, shortness of breath Left knee pain is reasonable 08/29/2021 9:32AM Dr. Maloney doing better, tolerated diet, no nausea, no vomiting, no fever, T, Bili 2.3, normal WBC Physical Exam Constitutional: WD/WN, vitals as above Eyes: PERRL, conjunctivae normal, anicteric sclerae Neck: trachea midline, no thyromegaly Respiratory: normal respiratory effort, lungs clear to auscultation Cardiovascular: RRR, no murmur, no edema Gastrointestinal (Abdomen): soft, NT, ND, BS + Neurologic: patellar DTR's 2+ bilat, sensation intact Psychiatric: A+Ox3, euthymic affect Results & Data ([facility]) Vital Signs (Past 12 Hours) Vital Signs Temp Pulse Resp BP Pulse Ox 08/29/21 07:03 36.5 C 60 17 120/70 96 08/29/21 03:00 36.6 C 60 20 117/66 97 08/28/21 23:00 36.7 C 59 L 20 117/68 95 Laboratory Results Abnormal lab results 08/28/21 08/28/21 08/28/21 Range/Units 11:15 11:46 16:07 RBC (4.7-6.1) M/uL Hgb (14.0-18.0) g/dL Hct 41.9 L (42-52) % MCV (80-100) fL RDW Std Deviation (36.4-46.3) fL RDW Coeff of [place] (11.5-14.5) % MPV (7.4-10.4) fL [place] # (Auto) (0.11-0.59) K/uL Immature Gran # (Auto) (0.00-0.02) K/uL BUN (6-23) mg/dl Creatinine (0.6-1.4) mg/dl Glucose (70-99(Fasting)) mg/dl POC Glucose 125 H 174 H (70-99) mg/dl Total Bilirubin (0.2-1.0) mg/dl AST (13-39) U/L ALT (7-52) U/L Alkaline Phosphatase (34-104) U/L Total Protein (6.0-8.3) gm/dl Albumin (3.4-5.0) gm/dl Globulin (2.5-4.0) gm/dl 08/28/21 08/29/21 08/29/21 Range/Units 20:13 04:41 04:41 RBC 3.93 L (4.7-6.1) M/uL Hgb 13.0 L (14.0-18.0) g/dL Hct 39.6 L (42-52) % MCV 100.8 H (80-100) fL RDW Std Deviation 61.4 H (36.4-46.3) fL RDW Coeff of [place] 16.5 H (11.5-14.5) % MPV 10.7 H (7.4-10.4) fL [place] # (Auto) 0.86 H (0.11-0.59) K/uL Immature Gran # (Auto) 0.03 H (0.00-0.02) K/uL BUN 38 H (6-23) mg/dl Creatinine 2.22 H (0.6-1.4) mg/dl Glucose 100 H (70-99(Fasting)) mg/dl POC Glucose 122 H (70-99) mg/dl Total Bilirubin 2.3 H (0.2-1.0) mg/dl AST 103 H (13-39) U/L ALT 168 H (7-52) U/L Alkaline Phosphatase 342 H (34-104) U/L Total Protein 5.1 L (6.0-8.3) gm/dl Albumin 2.7 L (3.4-5.0) gm/dl Globulin 2.4 L (2.5-4.0) gm/dl 08/29/21 Range/Units 07:08 RBC (4.7-6.1) M/uL Hgb (14.0-18.0) g/dL Hct (42-52) % MCV (80-100) fL RDW Std Deviation (36.4-46.3) fL RDW Coeff of [place] (11.5-14.5) % MPV (7.4-10.4) fL [place] # (Auto) (0.11-0.59) K/uL Immature Gran # (Auto) (0.00-0.02) K/uL BUN (6-23) mg/dl Creatinine (0.6-1.4) mg/dl Glucose (70-99(Fasting)) mg/dl POC Glucose 110 H (70-99) mg/dl Total Bilirubin (0.2-1.0) mg/dl AST (13-39) U/L ALT (7-52) U/L Alkaline Phosphatase (34-104) U/L Total Protein (6.0-8.3) gm/dl Albumin (3.4-5.0) gm/dl Globulin (2.5-4.0) gm/dl
--- NOTE | 2021-08-29 16:54 | Hospitalist Progress Note ---
Date of Service August 29, 2021 Assessment & Plan (1) Transaminitis: Plan: Noted during admission last month, at that time had a gallbladder ultrasound that was unremarkable CT ABD/pelvis today showing the gallbladder is distended and there are numerous small calcified gallstones. There is minimal pericholecystic infiltration. Correlate with clinical and laboratory findings for evidence of mild acute cholecystitis. Given gallstones noted on CT scan, ?? Choledocholithiasis Patient asymptomatic, afebrile, no leukocytosis Check RUQ US-did not show any features of acute cholecystitis but may have a tiny gallstone without any dilatation of the common bile duct Start IV Cipro and Flagyl-IV antibiotic has been changed to Zosyn Appreciate GI input and recommendation Appreciate surgery input and recommendation-no surgery as of now We will monitor CMP-LFTs remain elevated but is not worsening LFTs remain elevated Cholelithiasis No evidence of acute cholecystitis Check RUQ US-did not show any features of acute cholecystitis but may have a tiny gallstone without any dilatation of the common bile duct Start IV Cipro and Flagyl-IV antibiotic has been changed to Zosyn Likely the cause for the abdominal discomfort and transaminitis Appreciate surgery and GI input Still complains to have right upper quadrant discomfort with nausea Possible ERCP and surgery down the line-we will keep him n.p.o. after midnight (2) Generalized weakness: Plan: Suspected GI bleed Has been getting intravenous Protonix No evidence of hematemesis and melena Hemoglobin remains stable at 14.1 (3) Elevated troponin: Plan: Trend troponin Resting echo-unchanged from prior study and perhaps slight improvement with overall systolic function Orthostatic BPs, may need additional medication adjustment Patient's advanced age and multiple comorbid conditions likely contributing to his generalized weakness Cardiology consult-appreciate cardiology input and recommendation No evidence of ACS No cardiac symptoms and remains hemodynamically stable (4) Elevated d-dimer: Plan: Patient presenting from home with reports of generalized weakness, lightheadedness. Recently seen in cardiology clinic and found to be orthostatic, Lasix and isosorbide doses reduced. In the ED, D-dimer 5800, troponin 100.2 --> 84.1. EKG demonstrates a paced rhythm. No chest pain, patient saturating well on room air. 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: Plan: Appears compensated, continue home dose of furosemide Continue ASA, beta-corky, nitrate (9) CKD (chronic kidney disease) stage 4, GFR 15-29 ml/min: Plan: Baseline creatinine mid 2s- low 3s Creatinine 2.5 today Follow renal functions Creatinine remains stable at 2.22 (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: (12) Pacemaker: Plan: Device interrogation ordered (13) TIA (transient ischemic attack): Plan: History of Continue ASA, statin discontinued during recent admission due to transaminitis (14) DM type 2 (diabetes mellitus, type 2): Plan: Hgb A1c 9.2 07/2021 NovoLog per protocol while hospitalized (15) DVT prophylaxis: Plan: On IV heparin as above-discontinue IV heparin Will give subcu heparin 5000 unit 3 times daily for DVT prophylaxis Admission and Anticipated Discharge Date Admission Date: August 26, 2021 Subjective 08/27/2021 The patient was seen and examined in telemetry unit He complains to have generalized weakness and minimal abdominal discomfort No shortness of breath at rest No fever and no chills and no nausea no vomiting 08/28/2021 The patient was seen and examined in telemetry unit He has had some nausea with vomiting last night and was on n.p.o. His blood counts remained stable and hemoglobin is a stable to Denies any abdominal pain but does have discomfort without any distention No chest pain, shortness of breath Left knee pain is reasonable 08/29/2021 9:32AM Dr. Maloney doing better, tolerated diet, no nausea, no vomiting, no fever, T, Bili 2.3, normal WBC 08/29/2021 The patient was seen and examined in telemetry unit Is still complains to have upper abdominal discomfort especially in the right upper quadrant with nausea without any vomiting No fever and or chills and no abdominal distention Review of Systems Review of Systems: All systems reviewed and are unremarkable except as noted below Gastrointestinal: Minimal discomfort in the upper abdomen and epigastrium without any distention Physical Exam Physical Exam: Lying in bed comfortably Constitutional: well developed, well nourished, + ill appearing and + obese Eyes: PERRL, conjunctivae normal, anicteric sclerae ENMT: external ear and nose normal, oropharynx normal Neck: trachea midline, no thyromegaly Respiratory: + respiratory distress Auscultation: + diminished lung sounds and + crackles (Minimal crackles at the bases) Cardiovascular: Rate/Rhythm: regular rate and regular rhythm; not tachycardic Heart Sounds: normal S1 and normal S2; no murmur Extremities: + edema Gastrointestinal (Abdomen): Inspection/Auscultation: normal bowel sounds; abdomen not distended Percussion/Palpation: + abdomen tender (Minimal tenderness right upper quadrant) and abdomen soft Musculoskeletal: No acute arthritis involving any joint Neurologic: Alert, awake and oriented x3. Generally weak. No focal sensory and motor deficit appreciated Psychiatric: A+Ox3, euthymic affect Lymphatic: no cervical or axillary lymphadenopathy Results & Data Results & Data ([facility]) Vital Signs (Past 12 Hours) Vital Signs Temp Pulse Pulse Resp BP Pulse Ox 08/29/21 15:25 36.5 C 58 L 17 106/66 97 08/29/21 09:35 62 08/29/21 07:03 36.5 C 60 17 120/70 96 Laboratory Results Short CBC 08/29/21 Range/Units 04:41 WBC 5.58 (4.8-10.8) K/uL Hgb 13.0 L (14.0-18.0) g/dL Hct 39.6 L (42-52) % Plt Count 166 (130-400) K/uL BMP 08/29/21 04:41 Sodium 140 Potassium 4.1 Chloride 105 Carbon Dioxide 29 BUN 38 H Creatinine 2.22 H Glucose 100 H Calcium 8.7 Liver Function 08/29/21 Range/Units 04:41 Total Bilirubin 2.3 H (0.2-1.0) mg/dl AST 103 H (13-39) U/L ALT 168 H (7-52) U/L Alkaline Phosphatase 342 H (34-104) U/L Albumin 2.7 L (3.4-5.0) gm/dl Medications Administered Current Inpatient Medications Acetaminophen (Acetaminophen 325 Mg Tab) 650 mg PO Q4H PRN PRN Reason: Pain or Fever Stop: 09/25/21 19:15 Last Admin: 08/26/21 22:26 Dose: 650 mg Documented by: Allopurinol (Allopurinol 100 Mg Tab) 200 mg PO DAILY TIMBO Stop: 09/26/21 08:59 Last Admin: 08/29/21 08:33 Dose: 200 mg Documented by: Aspirin (Aspirin 81 Mg Ectab) 81 mg PO Q2D TIMBO Stop: 09/26/21 08:59 Last Admin: 08/27/21 10:33 Dose: 81 mg Documented by: Clotrimazole (Clotrimazole 10 Mg Kareem) 10 mg BUCCAL 5XDQ4H TIMBO Stop: 09/07/21 22:59 Last Admin: 08/29/21 14:46 Dose: 10 mg Documented by: Cyanocobalamin (Cyanocobalamin (B-12) 500 Mcg Tablet) 1,000 mcg PO QAM TIMBO Stop: 09/26/21 08:59 Last Admin: 08/29/21 08:33 Dose: 1,000 mcg Documented by: Dextrose (Dextrose 50% 50 Ml Syringe) 25 - 50 ml IV UD PRN; Protocol PRN Reason: Hypoglycemia Protocol Stop: 09/25/21 19:15 Doxycycline Hyclate (Doxycycline Hyclate 100 Mg Cap) 100 mg PO BID [facility] Stop: 09/03/21 20:59 Last Admin: 08/29/21 08:33 Dose: 100 mg Documented by: Furosemide (Furosemide 40 Mg Tab) 40 mg PO DAILY TIMBO Stop: 09/26/21 08:59 Last Admin: 08/29/21 09:11 Dose: 40 mg Documented by: Gabapentin (Gabapentin 400 Mg Cap) 400 mg PO HS [facility] Stop: 09/25/21 20:59 Last Admin: 08/28/21 20:26 Dose: 400 mg Documented by: Glucagon (Glucagon For Inj 1 Mg Vial) 1 mg SQ UD PRN; Protocol PRN Reason: Hypoglycemia Protocol Stop: 09/25/21 19:15 Glucose (Glucose 40% Gel 15 Gm Tube) 15 - 30 gm PO UD PRN; Protocol PRN Reason: Hypoglycemia Protocol Stop: 09/25/21 19:15 Glucose (Glucose 10 Tabs/Tube) 4 - 8 tabs PO UD PRN; Protocol PRN Reason: Hypoglycemia Protocol Stop: 09/25/21 19:15 Heparin Sodium (Porcine) (Heparin Sod 5,000 Unit/0.5 Ml Vial) 5,000 units SQ Q8 [facility] Stop: 09/26/21 21:59 Last Admin: 08/27/21 21:43 Dose: 5,000 units Documented by: Hydromorphone HCl (Hydromorphone Inj 0.5 Mg/0.5 Ml Syr) 0.25 mg IV Q6H PRN PRN Reason: Pain Stop: 09/10/21 01:31 Piperacillin Sod/Tazobactam (Sod 3.375 gm/ Dextrose) 115 mls @ 28.75 mls/hr IV Q8H [facility]; Protocol Stop: 09/06/21 21:59 Last Admin: 08/29/21 13:58 Dose: 28.8 mls/hr Documented by: Promethazine HCl 12.5 mg/ (Sodium Chloride) 50.5 mls @ 202 mls/hr IV Q6H PRN PRN Reason: Nausea And Vomiting Stop: 09/27/21 00:34 Last Infusion: 08/29/21 11:13 Dose: Infused Documented by: Pantoprazole Sodium 40 mg/ (Dextrose) 100 mls @ 20 mls/hr IV Q5H [facility] Stop: 09/27/21 02:14 Last Admin: 08/29/21 13:57 Dose: 8 mg/hr, 20 mls/hr Documented by: Insulin Aspart (Insulin Aspart Per Unit) 0 units SC ACHS [facility] Stop: 09/26/21 16:29 Last Admin: 08/29/21 11:46 Dose: 1 units Documented by: Isosorbide Mononitrate (Isosorbide [place] Extended Rel 30 Mg Tabcr) [facility] [place] Stop: 09/26/21 08:59 Last Admin: 08/29/21 08:33 Dose: 30 mg Documented by: Levothyroxine Sodium (Levothyroxine Sodium 125 Mcg Tablet) 125 mcg PO DAILYBB [facility] Stop: 09/26/21 06:29 Last Admin: 08/29/21 06:13 Dose: 125 mcg Documented by: Metoprolol Succinate (Metoprolol Succ 50mg Ext Rel Tab) [facility] [place] Stop: 09/26/21 08:59 Last Admin: 08/29/21 08:33 Dose: 100 mg Documented by: Miscellaneous (Carbohydrates For Hypoglycemia ) 15 - 30 gm PO UD PRN PRN Reason: Hypoglycemia Protocol Stop: 09/25/21 19:15 Miscellaneous Information (Piperacill/Tazobac Consult Active) 1 ea N/A UD PRN PRN Reason: Consult Stop: 09/26/21 13:43 Tramadol HCl (Tramadol Hcl 50 Mg Tablet) 25 - 50 mg PO Q4H PRN PRN Reason: Pain Stop: 09/26/21 01:31 Last Admin: 08/27/21 02:56 Dose: 50 mg Documented by: (1) CAD (coronary artery disease) Associated angina: without angina Coronary Disease-Associated Artery/Lesion type: unspecified vessel or lesion type [place] vs. transplanted heart: [place] heart Qualified Code(s): I25.10 - Atherosclerotic heart disease of [place] coronary artery without angina pectoris
[2021-08-29] MEDS: GABAPENTIN 400 MG CAP PO SCH (20:17)
--- NOTE | 2021-08-29 22:00 | Electrocardiogram Report ---
Test Reason : Blood Pressure : / mmHG Vent. Rate : 061 BPM Atrial Rate : 053 BPM P-R Int : 000 ms QRS Dur : 188 ms QT Int : 530 ms P-R-T Axes : 000 -67 116 degrees QTc Int : 533 ms Ventricular-paced rhythm Biventricular pacemaker detected Abnormal ECG When compared with ECG of 27-AUG-2021 05:49, Vent. rate has decreased BY 10 BPM Confirmed by Tunde Nobles ([id number]) on 08/29/2021 9:59:55 PM Referred By: REFERRED SELF Confirmed By:Tunde Nobles
[2021-08-30] MEDS: PANTOprazole 40 MG in DEXTROSE 5% 100 ML IV SCH ×5 (04:26→23:16)
[2021-08-30] MEDS: LEVOTHYROXINE SODIUM 125 MCG TABLET PO SCH (05:34)
[2021-08-30] MEDS: PIPERACILLIN/TAZOBACTAM 3.375 GM in DEXTROSE 5% 100 ML IV SCH ×3 (05:34→21:11)
[2021-08-30 06:22] LABS: Basophils # (auto) 0.03 K/uL (0-0.2); Basophils % (auto) 0.5 %; Eosinophils # (auto) 0.07 K/uL (0-0.5); Eosinophils % (auto) 1.2 %; Hematocrit (blood only) 38.7 % (42-52); Hemoglobin 12.9 g/dL (14.0-18.0); Immature Granulocytes # (auto) 0.04 K/uL (0.00-0.02); Immature Granulocytes % (auto) 0.7 %; Lymphocytes # (auto) 2.41 K/uL (1.2-3.4); Lymphocytes % (auto) 40.2 %; Mean Corpuscular Hemoglobin 33.2 pg (25-34); Mean Corpuscular Hgb Conc 33.3 g/dL (32-36); Mean Corpuscular Volume 99.5 fL (80-100); Mean Platelet Volume 10.8 fL (7.4-10.4); Monocytes # (auto) 0.97 K/uL (0.11-0.59); Monocytes % (auto) 16.2 %; Neutrophils # (auto) 2.47 K/uL (1.4-6.5); Neutrophils % (auto) 41.2 %; Platelet Count 162 K/uL (130-400); RDW Standard Deviation 61.1 fL (36.4-46.3); Red Blood Count 3.89 M/uL (4.7-6.1); White Blood Count 5.99 K/uL (4.8-10.8)
[2021-08-30 06:47] LABS: Albumin Globulin Ratio 1.2 (0.9-2); Albumin Level 2.7 gm/dl (3.4-5.0); BUN Creatinine Ratio 14.6 (10-20); Bilirubin,Total 2.3 mg/dl (0.2-1.0); Calcium 8.6 mg/dl (8.5-10.1); Creatinine Clr Calc Pharmacy 24.4 ml/min; Est GFR (African American) 28.7 ml/min; Est GFR (Non-African American) 24.7 ml/min; Globulin 2.2 gm/dl (2.5-4.0); Potassium 3.6 mmol/L (3.5-5.1); Total Protein 4.9 gm/dl (6.0-8.3)
[2021-08-30 06:59] LABS: INR 1.1 (0.9-1.1); Prothrombin Time 11.4 Seconds (9.0-12.0)
[2021-08-30] MEDS: CLOTRIMAZOLE 10 MG TROCHE BUCCAL SCH ×5 (08:04→23:20)
[2021-08-30] MEDS: allopurinoL 100 MG TAB PO SCH (08:04)
[2021-08-30] MEDS: CYANOCOBALAMIN (B-12) 500 MCG TABLET PO SCH (08:04)
[2021-08-30] MEDS: INSULIN ASPART PER UNIT SC SCH ×4 (08:04→20:47)
[2021-08-30] MEDS: DOXYCYCLINE HYCLATE 100 MG CAP PO SCH ×2 (08:04→21:11)
[2021-08-30] MEDS: METOPROLOL SUCC 50MG EXT REL TAB PO SCH (08:04)
[2021-08-30] MEDS: ISOSORBIDE MONO EXTENDED REL 30 MG TABCR PO SCH (08:04)
[2021-08-30] MEDS: FUROSEMIDE 40 MG TAB PO SCH (09:05)
[2021-08-30] MEDS: ACETAMINOPHEN 325 MG TAB PO PRN (11:21)
--- NOTE | 2021-08-30 11:47 | Cardiology Progress Note ---
Date of Service August 30, 2021 Assessment & Plan (1) Elevated troponin: (2) Generalized weakness: (3) Biventricular automatic implantable cardioverter defibrillator in situ: (4) Ischemic cardiomyopathy: (5) Stage 4 chronic kidney disease: (6) Transaminitis: Plan: Patient is a complex 86-year-old male with underlying history as outlined above but includes longstanding ischemic cardiomyopathy with compensated chronic congestive heart failure status post BiV pacer defibrillator, past paroxysmal now persistent atrial fibrillation since March 2021 when amiodarone was discontinued. He has had past ventricular arrhythmias but no recent recurrences. Recently hospitalized following fall possible orthostatic dizziness. Medications reduced as outpatient. Troponin elevation mild and flat consistent patient's underlying chronic kidney disease no signs of acute coronary syndrome. Hemodynamically stable over the weekend no signs of acute cardiac event or decline Team contemplating ERCP. If clinically indicated patient may undergo procedure at elevated but not prohibitive risk giving underlying morbidities Admission and Anticipated Discharge Date Admission Date: August 26, 2021 Subjective Patient seen and examined, chart, medications, telemetry reviewed. Noted intermittent abdominal pain over the weekend right upper quadrant. No cardiac complaints. No arrhythmias, no shortness of breath or chest pain. Rhythm BiV pacing with underlying atrial fibrillation Knee pain improved. No edema On IV antibiotic therapy for cholelithiasis Review of Systems Review of Systems: All systems reviewed & are unremarkable except as noted in Subjective Results & Data ([facility]) Vital Signs (Past 12 Hours) Vital Signs Temp Pulse Pulse Resp BP BP Pulse Ox 08/30/21 11:23 36.7 C 55 L 18 143/72 H 97 08/30/21 08:00 67 08/30/21 07:46 36.4 C L 59 L 19 126/63 97 08/30/21 07:09 62 08/30/21 04:08 36.6 C 69 20 113/69 96 Laboratory Results Laboratory Results - last 24 hr 08/29/21 08/29/21 08/30/21 16:12 20:13 05:32 WBC 5.99 RBC 3.89 L Hgb 12.9 L Hct 38.7 L MCV 99.5 MCH 33.2 MCHC 33.3 RDW Std Deviation 61.1 H RDW Coeff of [place] 17.0 H Plt Count 162 MPV 10.8 H Immature Gran % (Auto) 0.7 Neut % (Auto) 41.2 Lymph % (Auto) 40.2 [place] % (Auto) 16.2 Eos % (Auto) 1.2 Baso % (Auto) 0.5 Neut # (Auto) 2.47 Lymph # (Auto) 2.41 [place] # (Auto) 0.97 H Eos # (Auto) 0.07 Baso # (Auto) 0.03 Immature Gran # (Auto) 0.04 H PT INR Sodium Potassium Chloride Carbon Dioxide Anion Gap BUN Creatinine Est Cr Clr Drug Dosing Est GFR ( Amer) Est GFR (Non-Af Amer) BUN/Creatinine Ratio Glucose POC Glucose 149 H 143 H Calcium Magnesium Total Bilirubin AST ALT Alkaline Phosphatase Total Protein Albumin Globulin Albumin/Globulin Ratio 08/30/21 08/30/21 08/30/21 05:32 05:32 07:11 WBC RBC Hgb Hct MCV MCH MCHC RDW Std Deviation RDW Coeff of [place] Plt Count MPV Immature Gran % (Auto) Neut % (Auto) Lymph % (Auto) [place] % (Auto) Eos % (Auto) Baso % (Auto) Neut # (Auto) Lymph # (Auto) [place] # (Auto) Eos # (Auto) Baso # (Auto) Immature Gran # (Auto) PT 11.4 INR 1.1 Sodium 138 Potassium 3.6 Chloride 103 Carbon Dioxide 29 Anion Gap 6 BUN 34 H Creatinine 2.33 H Est Cr Clr Drug Dosing 24.4 Est GFR ( Amer) 28.7 Est GFR (Non-Af Amer) 24.7 BUN/Creatinine Ratio 14.6 Glucose 87 POC Glucose 96 Calcium 8.6 Magnesium 2.0 Total Bilirubin 2.3 H AST 130 H ALT 176 H Alkaline Phosphatase 295 H Total Protein 4.9 L Albumin 2.7 L Globulin 2.2 L Albumin/Globulin Ratio 1.2 08/30/21 11:13 WBC RBC Hgb Hct MCV MCH MCHC RDW Std Deviation RDW Coeff of [place] Plt Count MPV Immature Gran % (Auto) Neut % (Auto) Lymph % (Auto) [place] % (Auto) Eos % (Auto) Baso % (Auto) Neut # (Auto) Lymph # (Auto) [place] # (Auto) Eos # (Auto) Baso # (Auto) Immature Gran # (Auto) PT INR Sodium Potassium Chloride Carbon Dioxide Anion Gap BUN Creatinine Est Cr Clr Drug Dosing Est GFR ( Amer) Est GFR (Non-Af Amer) BUN/Creatinine Ratio Glucose POC Glucose 152 H Calcium Magnesium Total Bilirubin AST ALT Alkaline Phosphatase Total Protein Albumin Globulin Albumin/Globulin Ratio
[2021-08-30] MEDS: GABAPENTIN 400 MG CAP PO SCH (21:11)
--- NOTE | 2021-08-30 22:28 | Hospitalist Progress Note ---
Date of Service August 30, 2021 Assessment & Plan (1) Transaminitis: Plan: Noted during admission last month, at that time had a gallbladder ultrasound that was unremarkable Elevated LFT with AST 130 and ALT [address] ABD/pelvis today showing the gallbladder is distended and there are numerous small calcified gallstones. There is minimal pericholecystic infiltration. Correlate with clinical and laboratory findings for evidence of mild acute cholecystitis. Given gallstones noted on CT scan, ?? Choledocholithiasis RUQ US showed A few tiny gallstones/sludge. No gallbladder wall thickening. Currently on IV Zosyn Appreciate surgery input and recommendation-no surgery as of now Case discussed with GI - Plan for ERCP in am Continue monitor LFT Cholelithiasis No evidence of acute cholecystitis Check RUQ US-did not show any features of acute cholecystitis but may have a tiny gallstone without any dilatation of the common bile duct Started on IV Cipro and Flagyl-IV antibiotic has been changed to Zosyn Likely the cause for the abdominal discomfort and transaminitis Appreciate surgery and GI input Still complains to have right upper quadrant discomfort with nausea Possible ERCP and surgery down the line-we will keep him n.p.o. after midnight (2) Generalized weakness: Plan: Suspected GI bleed Has been getting intravenous Protonix No evidence of hematemesis and melena Hemoglobin remains stable at 14.1 PT/OT eval (3) Elevated troponin: Plan: Trend troponin Resting echo-unchanged from prior study and perhaps slight improvement with overall systolic function Orthostatic BPs, may need additional medication adjustment Patient's advanced age and multiple comorbid conditions likely contributing to his generalized weakness Cardiology consult-appreciate cardiology input and recommendation No evidence of ACS No cardiac symptoms and remains hemodynamically stable (4) Elevated d-dimer: Plan: Patient presenting from home with reports of generalized weakness, lightheadedness. Recently seen in cardiology clinic and found to be orthostatic, Lasix and isosorbide doses reduced. In the ED, D-dimer 5800, troponin 100.2 --> 84.1. EKG demonstrates a paced rhythm. No chest pain, patient saturating well on room air. 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: Plan: Appears compensated, continue home dose of furosemide Continue ASA, beta-corky, nitrate (9) CKD (chronic kidney disease) stage 4, GFR 15-29 ml/min: Plan: Baseline creatinine mid 2s- low 3s Creatinine 2.5 today Follow renal functions Creatinine remains stable at 2.22 (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: (12) Pacemaker: Plan: Device interrogation ordered (13) TIA (transient ischemic attack): Plan: History of Continue ASA, statin discontinued during recent admission due to transaminitis (14) DM type 2 (diabetes mellitus, type 2): Plan: Hgb A1c 9.2 07/2021 NovoLog per protocol while hospitalized (15) DVT prophylaxis: Plan: On IV heparin as above-discontinue IV heparin On subcu heparin Admission and Anticipated Discharge Date Admission Date: August 26, 2021 Subjective Pt was seen and examined for follow up of abdominal discomfort/naussea and weakness Lying in bed with no acute distress Pt said that he is having nausea Denies any chestt pain, palpitation and SOB Review of Systems Review of Systems: All systems reviewed & are unremarkable except as noted in Subjective Physical Exam Physical Exam: General- No acute distress Head- atraumatic Eyes- PERRL, EOMI, ENT- oropharynx clear Neck- supple, no JVD Lungs- clear to auscultation Heart- regular rhythm; no murmur Abdomen- normal bowel sounds, soft, +tender discomfort Extremities- no calf tenderness Neuro- alert, oriented x 3; PERRL, EOMI; no facial palsy; no dysarthria Skin- warm & dry Results & Data Results & Data ([facility]) Vital Signs (Past 12 Hours) Vital Signs Temp Pulse Pulse Resp BP BP Pulse Ox 08/30/21 20:11 36.6 C 60 18 110/58 L 96 08/30/21 15:47 36.5 C 64 19 115/63 97 08/30/21 14:45 61 08/30/21 11:23 36.7 C 55 L 18 143/72 H 97 (1) CAD (coronary artery disease) Associated angina: without angina Coronary Disease-Associated Artery/Lesion type: unspecified vessel or lesion type [place] vs. transplanted heart: [place] heart Qualified Code(s): I25.10 - Atherosclerotic heart disease of [place] coronary artery without angina pectoris
[2021-08-31] MEDS: PANTOprazole 40 MG in DEXTROSE 5% 100 ML IV SCH ×4 (04:29→23:58)
[2021-08-31] MEDS: PIPERACILLIN/TAZOBACTAM 3.375 GM in DEXTROSE 5% 100 ML IV SCH ×3 (05:33→22:11)
[2021-08-31] MEDS: LEVOTHYROXINE SODIUM 125 MCG TABLET PO SCH (05:34)
[2021-08-31] MEDS: CLOTRIMAZOLE 10 MG TROCHE BUCCAL SCH ×5 (06:05→23:58)
[2021-08-31 06:08] LABS: Hematocrit (blood only) 40.5 % (42-52); Hemoglobin 13.7 g/dL (14.0-18.0); Mean Corpuscular Hgb Conc 33.8 g/dL (32-36); Mean Corpuscular Volume 100.5 fL (80-100); Platelet Count 148 K/uL (130-400); RDW Coefficient of Variation 16.4 % (11.5-14.5); RDW Standard Deviation 60.7 fL (36.4-46.3); Red Blood Count 4.03 M/uL (4.7-6.1); White Blood Count 6.25 K/uL (4.8-10.8)
[2021-08-31 06:41] LABS: Albumin Globulin Ratio 1.1 (0.9-2); Albumin Level 2.7 gm/dl (3.4-5.0); BUN Creatinine Ratio 12.6 (10-20); Calcium 8.7 mg/dl (8.5-10.1); Creatinine Clr Calc Pharmacy 27.7 ml/min; Est GFR (African American) 30.4 ml/min; Est GFR (Non-African American) 26.2 ml/min; Globulin 2.4 gm/dl (2.5-4.0); Potassium 3.7 mmol/L (3.5-5.1); Total Protein 5.1 gm/dl (6.0-8.3)
[2021-08-31] MEDS: INSULIN ASPART PER UNIT SC SCH ×4 (07:33→21:53)
[2021-08-31] MEDS: allopurinoL 100 MG TAB PO SCH (08:31)
[2021-08-31] MEDS: ISOSORBIDE MONO EXTENDED REL 30 MG TABCR PO SCH (08:31)
[2021-08-31] MEDS: CYANOCOBALAMIN (B-12) 500 MCG TABLET PO SCH (08:31)
[2021-08-31] MEDS: METOPROLOL SUCC 50MG EXT REL TAB PO SCH (08:31)
[2021-08-31] MEDS: DOXYCYCLINE HYCLATE 100 MG CAP PO SCH ×2 (08:32→20:09)
--- NOTE | 2021-08-31 08:33 | Surgery Progress Note ---
Date of Service August 31, 2021 Assessment & Plan (1) Elevated LFTs: (2) Gallstones: Plan: We will await the results of the ERCP today. If there are choledocholithiasis we will need to make a decision regarding cholecystectomy. Patient is a relatively high surgical risk and he understands this. We will rediscuss with medicine, cardiology and the patient regarding the risk benefit of cholecystectomy pending the results of the ERCP. (3) 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: (4) CKD (chronic kidney disease) stage 4, GFR 15-29 ml/min: (5) DM type 2 (diabetes mellitus, type 2): Admission and Anticipated Discharge Date Admission Date: August 26, 2021 Subjective Patient seen. Overall feeling okay. Denies abdominal pain or nausea. States throughout this ordeal he has never had abdominal pain. Scheduled for ERCP this morning Physical Exam Constitutional: WD/WN, vitals as above no acute distress and not ill appearing Eyes: PERRL, conjunctivae normal, anicteric sclerae EOM intact bilaterally ENMT: external ear and nose normal, oropharynx normal Ears: no hearing impairment Neck: trachea midline, no thyromegaly Respiratory: normal respiratory effort; no respiratory distress and does not use accessory muscles Cardiovascular: Rate/Rhythm: regular rate and regular rhythm Gastrointestinal (Abdomen): Soft. Nontender. No guarding. No palpable abnormalities. Specifically no right upper quadrant tenderness to deep palpation Skin: no rashes, warm and dry Psychiatric: Orientation: alert, oriented x 3 and cooperative Results & Data ([facility]) Vital Signs (Past 12 Hours) Vital Signs Temp Pulse Pulse Resp BP Pulse Ox 08/31/21 07:47 36.6 C 61 18 123/69 92 08/31/21 07:35 60 08/31/21 03:30 36.8 C 68 19 130/62 97 08/30/21 23:56 37.0 C 60 18 124/74 96 08/30/21 23:48 60 PG Care Time/CCT Total # of Minutes Spent Total Time Spent with Patient: Total time spent is greater than 50% in coordination of care (as documented) at patient's floor/unit and/or counseling patient: Coding Level of Care Code 63901 Subseq Hosp Care Lvl 3 Diagnoses Elevated LFTs R79.89 Gallstones K80.20 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 I50.42 CKD (chronic kidney disease) stage 4, GFR 15-29 ml/min N18.4 DM type 2 (diabetes mellitus, type 2) E11.9
[2021-08-31] MEDS: FUROSEMIDE 40 MG TAB PO SCH (09:30)
--- NOTE | 2021-08-31 12:35 | Anesthesiology Consultation ---
Date of Service August 31, 2021 Assessment & Plan (1) Encounter for pre-operative examination: Chart Review Chart Review: Acceptable Risk for Surgery History Surgery Operation Date: 08/31/21 13:45 Proposed Procedures p Endoscopic Retrograde Cholangiopancreato - Lucina Arango MD s Endoscopic Ultrasonography Upper - Lucina Arango MD Height/Weight Height: 5 ft 10 in Weight: 87.9 kg Allergies Allergy/AdvReac Type Severity Reaction Status Date / Time tamsulosin [From Flomax] AdvReac Severe Fainting Verified 08/26/21 15:12 amlodipine AdvReac Mild INSOMNIA Verified 08/26/21 15:12 Novocain SOLN Allergy Fever Uncoded 08/26/21 15:12 Fibrites AdvReac neck pain Uncoded 08/26/21 15:12 Medications Home Medications Medication Instructions Recorded Confirmed Last Taken allopurinol 100 mg tablet 200 mg PO DAILY 10/20/18 08/26/21 07/22/21 aspirin 81 mg tablet,delayed 81 mg PO Q OTHER DAY 10/20/18 08/26/21 07/22/21 release cyanocobalamin (vitamin B-12) 500 1,000 mcg PO QAM 10/20/18 08/26/21 12/18/18 08:00 mcg tablet gabapentin 400 mg capsule 400 mg PO HS 10/20/18 08/26/21 12/18/18 20:30 levothyroxine 125 mcg tablet 125 mcg PO DAILY@0600 10/20/18 08/26/21 07/22/21 metoprolol succinate 100 mg 100 mg PO QAM 10/20/18 08/26/21 07/22/21 tablet,extended release 24 hr repaglinide 1 mg tablet 0 mg PO TIDM 07/22/21 08/26/21 07/22/21 sitagliptin 25 mg tablet (Januvia) 25 mg PO DAILY 07/22/21 08/26/21 07/22/21 furosemide 40 mg tablet 40 mg PO DAILY 08/26/21 08/26/21 Unknown insulin glargine 100 unit/mL (3 10 unit SUBCUT QA 08/26/21 08/26/21 Unknown mL) subcutaneous pen (Basaglar KwikPen U-100 Insulin) isosorbide mononitrate 60 mg 30 mg PO QAM 08/26/21 08/26/21 Unknown tablet,extended release 24 hr triamcinolone acetonide 0.1 % 1 applic TOPICAL BID 08/26/21 08/26/21 Unknown topical cream Active Medications Generic Name Dose Route Start Last Admin Trade Name Freq PRN Reason Stop Dose Admin Acetaminophen 650 mg 08/26/21 19:16 08/30/21 11:21 Acetaminophen 325 Mg Tab PO 09/25/21 19:15 650 mg Q4H PRN Administration Pain or Fever Allopurinol 200 mg 08/27/21 09:00 08/31/21 08:31 Allopurinol 100 Mg Tab PO 09/26/21 08:59 200 mg DAILY TIMBO Administration Aspirin 81 mg 08/27/21 09:00 08/27/21 10:33 Aspirin 81 Mg Ectab PO 09/26/21 08:59 81 mg Q2D TIMBO Administration Clotrimazole 10 mg 08/28/21 23:00 08/31/21 10:58 Clotrimazole 10 Mg Kareem BUCCAL 09/07/21 22:59 Not Given 5XDQ4H TIMBO Cyanocobalamin 1,000 mcg 08/27/21 09:00 08/31/21 08:31 Cyanocobalamin (B-12) 500 Mcg Tablet PO 09/26/21 08:59 1,000 mcg QAM TIMBO Administration Doxycycline Hyclate 100 mg 08/27/21 21:00 08/31/21 08:32 Doxycycline Hyclate 100 Mg Cap PO 09/03/21 20:59 100 mg BID TIMBO Administration Furosemide 40 mg 08/27/21 09:00 08/31/21 09:30 Furosemide 40 Mg Tab PO 09/26/21 08:59 40 mg DAILY TIMBO Administration Gabapentin 400 mg 08/26/21 21:00 08/30/21 21:11 Gabapentin 400 Mg Cap PO 09/25/21 20:59 400 mg HS TIMBO Administration Heparin Sodium (Porcine) 5,000 units 08/27/21 22:00 08/27/21 21:43 Heparin Sod 5,000 Unit/0.5 Ml Vial SQ 09/26/21 21:59 5,000 units Q8 TIMBO Administration Piperacillin Sod/Tazobactam 115 mls @ 28.75 mls/hr 08/27/21 22:00 08/31/21 09:30 Sod 3.375 gm/ Dextrose IV 09/06/21 21:59 Infused Q8H TIMBO Infusion Protocol Promethazine HCl 12.5 mg/ 50.5 mls @ 202 mls/hr 08/28/21 00:35 08/29/21 11:13 Sodium Chloride IV 09/27/21 00:34 Infused Q6H PRN Infusion Nausea And Vomiting Pantoprazole Sodium 40 mg/ 100 mls @ 20 mls/hr 08/28/21 02:15 08/31/21 09:30 Dextrose IV 09/27/21 02:14 8 mg/hr Q5H TIMBO 20 mls/hr Administration 8 MG/HR Insulin Aspart 0 units 08/27/21 16:30 08/31/21 11:30 Insulin Aspart Per Unit SC 09/26/21 16:29 Not Given ACHS TIMBO Isosorbide Mononitrate 30 mg 08/27/21 09:00 08/31/21 08:31 Isosorbide Cotton Extended Rel 30 Mg Tabcr PO 09/26/21 08:59 30 mg QAM TIMBO Administration Levothyroxine Sodium 125 mcg 08/27/21 06:30 08/31/21 05:34 Levothyroxine Sodium 125 Mcg Tablet PO 09/26/21 06:29 125 mcg DAILYBB TIMBO Administration Metoprolol Succinate 100 mg 08/27/21 09:00 08/31/21 08:31 Metoprolol Succ 50mg Ext Rel Tab PO 09/26/21 08:59 100 mg QAM TIMBO Administration Tramadol HCl 25 - 50 mg 08/27/21 01:32 08/27/21 02:56 Tramadol Hcl 50 Mg Tablet PO 09/26/21 01:31 50 mg Q4H PRN Administration Pain Past Medical History Medical History (Updated 08/31/21 @ 12:35 by Omid Wing MD) Benign prostatic hyperplasia with urinary obstruction Biventricular automatic implantable cardioverter defibrillator in situ CAD (coronary artery disease) Status post inferior wall myocardial infarction in 1980 Status post January 1997 coronary bypass grafting x 3, receiving a RUSS graft to the LAD, a saphenous vein graft to the ramus, and a SVG to the 1st obtuse marginal. CHB (complete heart block) pt admitted for elective upgrade to biv icd. Underwent procedure without any complications and monitored overnight Diabetes DM type 2 (diabetes mellitus, type 2) Gout High cholesterol History of atrial fibrillation PAF HTN (hypertension) Hyperlipidemia Hypothyroidism ICD (implantable cardioverter-defibrillator) battery depletion Status post dual chamber pacemaker defibrillator implantation on March 11, 2004, generator exchanges on 07/09/2009, and November 11, 2014 using a [employer] XT [id number] device. Status post December 19, 2018 upgrade from a dual chamber implantable cardiac defibrillator to a biventricular rate responsive implantable cardiac defibrillator by Dr. Basurto at [facility]. Ischemic cardiomyopathy PPM upgraded to BiV ICD Osteoarthritis Stage 4 chronic kidney disease Baseline creatinine 2.4-2.8 range per records Systolic heart failure Tachy-pablo syndrome Transient ischemic attack (TIA) 2014 Urinary urgency V tach Hx Past Family History Family History Brother Prostate cancer Diabetes Coronary heart disease Mother Diabetes Stroke Coronary heart disease Father Stroke Past Surgical History Surgical History History of cardiac cath History of colonoscopy History of eye surgery History of implantable cardiac defibrillator (ICD) History of tonsillectomy History of tooth extraction History of transurethral resection of prostate TURP (02/20/18): LMA#4 (iGel) at [facility] Hx of CABG CABG x3 (1996)- RUSS-LAD, SVG-RAMUS, SVG TO OM1 Hx of transurethral resection of prostate ICD (implantable cardioverter-defibrillator) in place Implanted (2003); Generator change (2009) Social History Smoking Status: Never smoker Do You Dip or Chew Tobacco: No Hx Alcohol Use: No Alcohol type: beer alcohol intake frequency: holidays/special occasions only Hx Substance Use: No substance use type: does not use Physical Exam Vital Signs Last Vital Signs Temp 36.8 C 08/31/21 11:45 Pulse 62 08/31/21 11:45 Resp 18 08/31/21 11:45 BP 114/67 08/31/21 11:45 Pulse Ox 94 08/31/21 11:45 Testing Laboratory Results 08/31/21 05:48 08/31/21 05:48 PT 11.4 Seconds (9.0-12.0) 08/30/21 05:32 INR 1.1 (0.9-1.1) 08/30/21 05:32 APTT 101.6 Seconds (21.0-31.0) H* 05/06/22 16:15 Blood Type O Positive 08/28/21 00:42 Antibody Screen NEGATIVE 08/28/21 00:42 08/31/21 08/31/21 11:23 07:23 POC Glucose 116 H 109 H Electrocardiogram Date: 08/28/21 V=Paced at 61 Echocardiogram Date: 08/27/21 EF: 35-40 LV Function: dysfunctional (several areas of hypokinesis) Valvular Disease: + MR (mild to mod)
[2021-08-31] MEDS ORDERED: ETOMIDATE 2 MG/ML 20 ML VIAL IV ONE (13:44)
[2021-08-31] MEDS ORDERED: ONDANSETRON INJ 2 MG/ML 2 ML VIAL ONE (13:44)
[2021-08-31] MEDS ORDERED: SUCCINYLCHOLINE CHLORIDE 20 MG/ML 10 ML VIAL IV ONE (13:44)
[2021-08-31] MEDS ORDERED: PROPOFOL IV EMULSION 10 MG/ML 20 ML VIAL IV ONE (13:44)
[2021-08-31] MEDS ORDERED: fentaNYL citrate 100 MCG/2 ML VIAL IV PRN (13:58)
[2021-08-31] MEDS ORDERED: ONDANSETRON INJ 2 MG/ML 2 ML VIAL IV PRN (13:58)
[2021-08-31] MEDS ORDERED: ATROPINE SULFATE 0.1 MG/ML 10ML SYR IV PRN (13:58)
--- NOTE | 2021-08-31 14:33 | History & Physical Bridge Note ---
Date of Service August 31, 2021 History & Physical Bridge Note I have examined the patient, reviewed the History & Physical and in the interval since the performance of the History & Physical I have noted the following changes of clinical significance: no changes noted EUS/ERCP today for suspected choledocholithiasis Patient was explained in detail regarding risks, benefits, limitations and alternatives of the above endoscopic procedure. Risks of intravenous sedation used for procedure were also explained. Risks include, but not limited to perforation, bleeding, infection, respiratory distress, cardiac arrest and . Patient is also aware about the possibility of missed lesion. Patient's questions were answered. The patient verbalized understanding the information and agreed to undergo the procedure.
[2021-08-31] MEDS: INDOMETHACIN 50 MG SUPP PR ONE ×2 (15:58→17:52)
[2021-08-31] MEDS ORDERED: HEPARIN 100 UNIT/ML 5ML FLUSH ONE (16:08)
--- NOTE | 2021-08-31 16:35 | Operative Report ---
Post Operative Report Pre & Post Diagnosis Operation Date: 08/31/21 13:45 Pre-Op Diagnosis: Suspected choledocholithiasis I identified the patient and participated in the time-out.: Yes Procedure Operation Date: 08/31/21 13:45 Actual Procedures p Endoscopic Retrograde Cholangiopancreato - Lucina Arango MD Surgeon Lucina Arango MD Pizza Baker None Estimated Blood Loss 0 Findings See Below (? choledocholithiasis, sphincterotomy done. Liver biopsy obtained) Specimens Liver biopsy Description of Procedure EUS/ERCP I attest to the content of the Intraoperative Record and any orders documented therein. Any exceptions are noted below.
[2021-08-31] MEDS ORDERED: PHENYLEPHRINE HCL 10 MG/ML VIAL ONE (16:53)
--- NOTE | 2021-08-31 17:03 | Hospitalist Progress Note ---
Date of Service August 31, 2021 Assessment & Plan (1) Transaminitis: Plan: Noted during admission last month, at that time had a gallbladder ultrasound that was unremarkable Elevated LFT with AST 130 and ALT [address] ABD/pelvis today showing the gallbladder is distended and there are numerous small calcified gallstones. There is minimal pericholecystic infiltration. Correlate with clinical and laboratory findings for evidence of mild acute cholecystitis. Given gallstones noted on CT scan, ?? Choledocholithiasis RUQ US showed A few tiny gallstones/sludge. No gallbladder wall thickening. Currently on IV Zosyn Gastro on board EUS showed gallstones and sludge, CBD was not dilated, there was a ?? choledocholithiasis however Liver biopsy was obtained to r/o other etiologies of elevated LFTs. Continue monitor Liver enzymes ERCP done, sphincterotomy performed and the duct was swept and only minimal sludge removed, no stones seen. Cholelithiasis No evidence of acute cholecystitis Check RUQ US-did not show any features of acute cholecystitis but may have a tiny gallstone without any dilatation of the common bile duct Started on IV Cipro and Flagyl-IV antibiotic has been changed to Zosyn Likely the cause for the abdominal discomfort and transaminitis Appreciate surgery and GI input Still complains to have right upper quadrant discomfort with nausea ERCP done, sphincterotomy performed and the duct was swept and only minimal sludge removed, no stones seen as per GI Gastro recommended surgery for cholecystectomy will discuss with surgery team Continue full liquid diet for now (2) Generalized weakness: Plan: Suspected GI bleed Has been getting intravenous Protonix No evidence of hematemesis and melena Hemoglobin remains stable at 14.1 PT/OT eval (3) Elevated troponin: Plan: Trend troponin Resting echo-unchanged from prior study and perhaps slight improvement with overall systolic function Orthostatic BPs, may need additional medication adjustment Patient's advanced age and multiple comorbid conditions likely contributing to his generalized weakness Cardiology consult-appreciate cardiology input and recommendation No evidence of ACS No cardiac symptoms and remains hemodynamically stable (4) Elevated d-dimer: Plan: Patient presenting from home with reports of generalized weakness, lightheadedness. Recently seen in cardiology clinic and found to be orthostatic, Lasix and isosorbide doses reduced. In the ED, D-dimer 5800, troponin 100.2 --> 84.1. EKG demonstrates a paced rhythm. No chest pain, patient saturating well on room air. 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: Plan: Appears compensated, continue home dose of furosemide Continue ASA, beta-corky, nitrate (9) CKD (chronic kidney disease) stage 4, GFR 15-29 ml/min: Plan: Baseline creatinine mid 2s- low 3s Creatinine 2.5 today Follow renal functions Creatinine remains stable at 2.22 (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: (12) Pacemaker: Plan: Device interrogation ordered (13) TIA (transient ischemic attack): Plan: History of Continue ASA, statin discontinued during recent admission due to transaminitis (14) DM type 2 (diabetes mellitus, type 2): Plan: Hgb A1c 9.2 07/2021 NovoLog per protocol while hospitalized (15) DVT prophylaxis: Plan: On IV heparin as above-discontinue IV heparin On subcu heparin Admission and Anticipated Discharge Date Admission Date: August 26, 2021 Subjective Pt was seen and examined for follow up of abdominal discomfort, nausea and weakness Lying in bed with no acute distress Pt said that he is having pain in his left leg He has been NPO for the ERCP and he is very hungry Denies any chest pain, palpitation and SOB Review of Systems Review of Systems: General- No acute distress Head- atraumatic Eyes- PERRL, EOMI, ENT- oropharynx clear Neck- supple, no JVD Lungs- clear to auscultation Heart- regular rhythm; no murmur Abdomen- normal bowel sounds, soft, nontender Extremities- no calf tenderness Neuro- alert, oriented x 3; PERRL, EOMI; no facial palsy; no dysarthria Skin- warm & dry Physical Exam Physical Exam: General- No acute distress Head- atraumatic Eyes- PERRL, EOMI, ENT- oropharynx clear Neck- supple, no JVD Lungs- clear to auscultation Heart- regular rhythm; no murmur Abdomen- normal bowel sounds, soft, +tender discomfort Extremities- no calf tenderness Neuro- alert, oriented x 3; PERRL, EOMI; no facial palsy; no dysarthria Skin- warm & dry Results & Data Results & Data ([facility]) Vital Signs (Past 12 Hours) Vital Signs Temp Pulse Pulse Pulse Resp BP BP 08/31/21 13:48 36.5 C 60 22 117/61 08/31/21 11:45 36.8 C 62 18 114/67 08/31/21 07:47 36.6 C 61 18 123/69 08/31/21 07:35 60 Pulse Ox 08/31/21 13:48 96 08/31/21 11:45 94 08/31/21 07:47 92 08/31/21 07:35 (1) CAD (coronary artery disease) Associated angina: without angina Coronary Disease-Associated Artery/Lesion type: unspecified vessel or lesion type Teller vs. transplanted heart: [place] heart Qualified Code(s): I25.10 - Atherosclerotic heart disease of [place] coronary artery without angina pectoris
--- NOTE | 2021-08-31 17:30 | Fluoroscopy Report ---
[place] ERCP biliary ductal HISTORY: 86 years-old Male EXPLORE DUCTS COMPARISON: CT abdomen pelvis 08/26/2021 TECHNIQUE: 9 spot fluoroscopic images of the right upper quadrant abdomen were obtained utilizing 43. 6 seconds fluoroscopy time FINDINGS: Endoscope is noted within the duodenum. Cannulation of the common bile duct with balloon sweep. No bi liary filling defects or strictures identified. Contrast is also noted within the duodenum. IMPRESSION: Fluoroscopic assistance as above. ACT 112: Negative or not required by law. The above report was generated using voice recognition software. It may contain grammatical, syntax o r spelling errors. Electronically signed by: Carlos Narvaez M.D. 08/31/2021 5:28 PM
--- NOTE | 2021-08-31 17:40 | Anesthesiology Progress Note ---
Date of Service August 31, 2021 Anesthesia Post Procedure Vital Signs Vital Signs: Temp Pulse Pulse Pulse Resp BP BP 08/31/21 17:25 36.4 C L 60 18 108/58 L 08/31/21 17:15 36.2 C L 61 14 108/55 L 08/31/21 17:05 61 14 113/58 L 08/31/21 16:55 63 12 123/60 08/31/21 16:47 35.9 C L 68 16 122/67 08/31/21 13:48 36.5 C 60 22 117/61 08/31/21 11:45 36.8 C 62 18 114/67 08/31/21 07:47 36.6 C 61 18 123/69 08/31/21 07:35 60 08/31/21 03:30 36.8 C 68 19 130/62 08/30/21 23:56 37.0 C 60 18 124/74 08/30/21 23:48 60 08/30/21 20:11 36.6 C 60 18 110/58 L Pulse Ox 08/31/21 17:25 94 08/31/21 17:15 94 08/31/21 17:05 94 08/31/21 16:55 100 08/31/21 16:47 97 08/31/21 13:48 96 08/31/21 11:45 94 08/31/21 07:47 92 08/31/21 07:35 08/31/21 03:30 97 08/30/21 23:56 96 08/30/21 23:48 08/30/21 20:11 96 Pain Intensity Left Knee: Pain Intensity: 10 Transfer of Care Handoff Completed per policy Notes Mental Status: alert / awake / arousable and participated in evaluation Patient Amnestic to Procedure: Yes Nausea / Vomiting: adequately controlled Pain: adequately controlled Airway Patency, RR, SpO2: stable & adequate BP & HR: stable & adequate Hydration State: stable & adequate Anesthetic Complications: no major complications apparent and Pt Satisfied with anesthetic care
--- NOTE | 2021-08-31 18:24 | Gastroenterology Progress Note ---
Date of Service August 31, 2021 Assessment & Plan Admission and Anticipated Discharge Date Admission Date: August 26, 2021 Subjective Patient underwent EUS/ERCP. EUS showed gallstones and sludge, CBD was not dilated, there was a ?? choledocholithiasis however Liver biopsy was obtained to r/o other etiologies of elevated LFTs. ERCP done, sphincterotomy performed and the duct was swept and only minimal sludge removed, no stones seen. Recommend: Surgery follow up for cholecystectomy. Results & Data ([facility]) Vital Signs (Past 12 Hours) Vital Signs Temp Pulse Pulse Pulse Resp BP BP 08/31/21 17:41 36.3 C L 62 18 106/63 08/31/21 17:25 36.4 C L 60 18 108/58 L 08/31/21 17:15 36.2 C L 61 14 108/55 L 08/31/21 17:05 61 14 113/58 L 08/31/21 16:55 63 12 123/60 08/31/21 16:47 35.9 C L 68 16 122/67 08/31/21 13:48 36.5 C 60 22 117/61 08/31/21 11:45 36.8 C 62 18 114/67 08/31/21 07:47 36.6 C 61 18 123/69 08/31/21 07:35 60 Pulse Ox 08/31/21 17:41 95 08/31/21 17:25 94 08/31/21 17:15 94 08/31/21 17:05 94 08/31/21 16:55 100 08/31/21 16:47 97 08/31/21 13:48 96 08/31/21 11:45 94 08/31/21 07:47 92 08/31/21 07:35
[2021-08-31] MEDS: GABAPENTIN 400 MG CAP PO SCH (20:09)
[2021-08-31] MEDS ORDERED: SODIUM CHLORIDE 0.9% 500 ML IV ONE (20:41)
[2021-08-31] MEDS: OLANZapine 10 MG/2.1 ML SDV IM PRN (20:50)
[2021-08-31] MEDS ORDERED: OLANZapine 10 MG/2.1 ML SDV IM STA (23:02)
[2021-09-01] MEDS ORDERED: Nursing to Pharmacy Communication SCH (00:30)
[2021-09-01] MEDS: PANTOprazole 40 MG in DEXTROSE 5% 100 ML IV SCH ×4 (05:19→20:22)
[2021-09-01] MEDS: PIPERACILLIN/TAZOBACTAM 3.375 GM in DEXTROSE 5% 100 ML IV SCH (05:19)
[2021-09-01] MEDS: METOPROLOL SUCC 50MG EXT REL TAB PO SCH (08:02)
[2021-09-01] MEDS: DOXYCYCLINE HYCLATE 100 MG CAP PO SCH ×2 (08:02→21:16)
[2021-09-01] MEDS: LEVOTHYROXINE SODIUM 125 MCG TABLET PO SCH (08:02)
[2021-09-01] MEDS: CLOTRIMAZOLE 10 MG TROCHE BUCCAL SCH ×5 (08:03→22:44)
[2021-09-01] MEDS: ISOSORBIDE MONO EXTENDED REL 30 MG TABCR PO SCH (08:03)
[2021-09-01] MEDS: CYANOCOBALAMIN (B-12) 500 MCG TABLET PO SCH (08:03)
[2021-09-01] MEDS: allopurinoL 100 MG TAB PO SCH (08:03)
[2021-09-01] MEDS: INSULIN ASPART PER UNIT SC SCH ×4 (08:04→21:16)
--- NOTE | 2021-09-01 08:07 | GI REPORT ---
Patient Name: Robi Haider Procedure Date: 08/31/2021 2:46 PM Date of : 1935 Admit Type: Inpatient Age: 86 Gender: Male Attending MD: Lucina Arango MD Procedure: Upper GI endoscopy Providers: Lucina Arango MD Referring MD: NATHANAEL DIAS Indications: Abdominal pain Medicines: General Anesthesia Complications: No immediate complications. Estimated Blood Loss: Estimated blood loss: none. Procedure: Pre-Anesthesia Assessment: - Prior to the procedure, a History and Physical was performed, and patient medications, allergies and sensitivities were reviewed. The patient's tolerance of previous anesthesia was reviewed. - The risks and benefits of the procedure and the sedation options and risks were discussed with the patient. All questions were answered and informed consent was obtained. - Patient identification and proposed procedure were verified prior to the procedure by the physician and the nurse. The procedure was verified in the procedure room. - Pre-procedure physical examination revealed no contraindications to sedation. After obtaining informed consent, the endoscope was passed under direct vision. Throughout the procedure, the patient's blood pressure, pulse, and oxygen saturations were monitored continuously. The Endoscope was introduced through the mouth, and advanced to the second part of duodenum. The upper GI endoscopy was accomplished without difficulty. The patient tolerated the procedure well. Findings: The examined esophagus was normal. The entire examined stomach was normal. The duodenal bulb and second portion of the duodenum were normal. Impression: - Normal esophagus. - Normal stomach. - Normal duodenal bulb and second portion of the duodenum. Recommendation: - Perform an upper endoscopic ultrasound (UEUS) today. Lucina Arango MD 09/01/2021 8:06:49 AM This report has been signed electronically. Note Initiated On: 08/31/2021 2:46 PM Number of Addenda: 0 I attest to the content of the Intraoperative Record and orders documented therein, exceptions below {[id number]}
--- NOTE | 2021-09-01 08:09 | GI REPORT ---
Patient Name: Robi Haider Procedure Date: 08/31/2021 2:48 PM Date of : 1935 Admit Type: Inpatient Age: 86 Gender: Male Attending MD: Lucina Arango MD Procedure: ERCP Providers: Lucina Arango MD Referring MD: NATHANAEL DIAS Indications: Suspected bile duct stone(s), Elevated liver enzymes Medicines: General Anesthesia Complications: No immediate complications. Estimated Blood Loss: Estimated blood loss: none. Procedure: Pre-Anesthesia Assessment: - Prior to the procedure, a History and Physical was performed, and patient medications, allergies and sensitivities were reviewed. The patient's tolerance of previous anesthesia was reviewed. - The risks and benefits of the procedure and the sedation options and risks were discussed with the patient. All questions were answered and informed consent was obtained. - Patient identification and proposed procedure were verified prior to the procedure by the physician and the nurse. The procedure was verified in the procedure room. - Pre-procedure physical examination revealed no contraindications to sedation. After obtaining informed consent, the scope was passed under direct vision. Throughout the procedure, the patient's blood pressure, pulse, and oxygen saturations were monitored continuously. The Duodenoscope was introduced through the mouth, and advanced to the duodenum and used to inject contrast into the bile duct. The ERCP was accomplished without difficulty. The patient tolerated the procedure well. Findings: The postal service mail processor film was normal. The esophagus was successfully intubated under direct vision. The scope was advanced to a normal major papilla in the descending duodenum without detailed examination of the pharynx, larynx and associated structures, and upper GI tract. The upper GI tract was grossly normal. A biliary pre-cut sphincterotomy was made with a monofilament needle knife using a freehand technique using ERBE electrocautery. There was no post-sphincterotomy bleeding. A 0.025 inch x 270 cm angled Visiglide wire was passed into the biliary tree. The Fusion OMNI sphincterotome was passed over the guidewire and the bile duct was then deeply cannulated. Contrast was injected. I personally interpreted the bile duct images. Ductal flow of contrast was adequate. Image quality was adequate. Contrast extended to the main bile duct. Opacification of the entire biliary tree except for the gallbladder was successful. The maximum diameter of the ducts was 6 mm. The biliary sphincterotomy was extended with a monofilament traction (standard) sphincterotome using ERBE electrocautery. There was no post-sphincterotomy bleeding. The biliary tree was swept with an 11.5 mm balloon starting at the bifurcation. Sludge was swept from the duct. Impression: - A biliary sphincterotomy was performed. - The biliary tree was swept and sludge was found. Recommendation: - Return patient to [facility] for ongoing care. - Follow up with Surgery for cholecystectomy. Lucina Arango MD 09/01/2021 8:09:26 AM This report has been signed electronically. Note Initiated On: 08/31/2021 2:48 PM Number of Addenda: 0 I attest to the content of the Intraoperative Record and orders documented therein, exceptions below {[id number]}
--- NOTE | 2021-09-01 08:13 | GI REPORT ---
Patient Name: Robi Haider Procedure Date: 08/31/2021 2:47 PM Date of : 1935 Admit Type: Inpatient Age: 86 Gender: Male Attending MD: Lucina Arango MD Procedure: Upper EUS Providers: Lucina Arango MD Referring MD: NATHANAEL DIAS Indications: Elevated liver enzymes, Suspected choledocholithiasis Medicines: General Anesthesia Complications: No immediate complications. Estimated Blood Loss: Estimated blood loss: none. Procedure: Pre-Anesthesia Assessment: - Prior to the procedure, a History and Physical was performed, and patient medications, allergies and sensitivities were reviewed. The patient's tolerance of previous anesthesia was reviewed. - The risks and benefits of the procedure and the sedation options and risks were discussed with the patient. All questions were answered and informed consent was obtained. - Patient identification and proposed procedure were verified prior to the procedure by the physician and the nurse. The procedure was verified in the procedure room. - Pre-procedure physical examination revealed no contraindications to sedation. After obtaining informed consent, the endoscope was passed under direct vision. Throughout the procedure, the patient's blood pressure, pulse, and oxygen saturations were monitored continuously. The scope was introduced through the mouth, and advanced to the second part of duodenum. The upper EUS was accomplished without difficulty. The patient tolerated the procedure well. Findings: ENDOSONOGRAPHIC FINDING: : There was no sign of significant endosonographic abnormality in the ampulla. No masses were identified. ?? stone was visualized endosonographically in the common bile duct. It was hyperechoic and characterized by shadowing. The duct measured 5 mm in maximum diameter. Multiple stones were visualized endosonographically in the gallbladder. The stones measured up to 1 mm in greatest dimension. They were hyperechoic and characterized by shadowing. There was no sign of significant endosonographic abnormality in the left lobe of the liver. Homogeneous parenchyma was identified. Fine needle biopsy was performed. Color Doppler imaging was utilized prior to needle puncture to confirm a lack of significant vascular structures within the needle path. One pass was made with the 19 gauge ultrasound core biopsy needle using a transgastric approach. A visible core of tissue was obtained. Verification of patient identification for the specimen was done by the physician and nurse using the patient's name and date. Pancreatic parenchymal abnormalities were noted in the entire pancreas. These consisted of atrophy and lobularity. There was no sign of significant endosonographic abnormality in the visualized portion of the left adrenal gland. There was no sign of significant endosonographic abnormality involving the celiac trunk. Impression: - There was no sign of significant pathology in the ampulla. - ?? small stone was visualized endosonographically in the common bile duct however the duct was non dilated. - Multiple stones were visualized endosonographically in the gallbladder. - There was no evidence of significant pathology in the left lobe of the liver. Fine needle biopsy performed. - Pancreatic parenchymal abnormalities consisting of atrophy and lobularity were noted in the entire pancreas. - Endosonographic images of the left adrenal gland were unremarkable. - The celiac trunk was endosonographically normal. Recommendation: - Await path results. - Perform an ERCP today. Lucina Arango MD 09/01/2021 8:12:57 AM This report has been signed electronically. Note Initiated On: 08/31/2021 2:47 PM Number of Addenda: 0 I attest to the content of the Intraoperative Record and orders documented therein, exceptions below {[id number]}
[2021-09-01 08:27] LABS: Albumin Globulin Ratio 1.1 (0.9-2); Albumin Level 2.7 gm/dl (3.4-5.0); BUN Creatinine Ratio 11.7 (10-20); Bilirubin,Total 3.7 mg/dl (0.2-1.0); Calcium 8.8 mg/dl (8.5-10.1); Creatinine Clr Calc Pharmacy 25.7 ml/min; Est GFR (African American) 27.8 ml/min; Globulin 2.4 gm/dl (2.5-4.0); Potassium 3.7 mmol/L (3.5-5.1); Total Protein 5.1 gm/dl (6.0-8.3)
--- NOTE | 2021-09-01 09:51 | Surgery Progress Note ---
Date of Service September 01, 2021 Assessment & Plan (1) Gallstones: Plan: Patient clearly is not a candidate for surgery. He is having difficulty tolerating just an ERCP. Also based on the findings of the ERCP I do not believe laparoscopic cholecystectomy is even indicated at this time. We will sign off. Please call us if we can be of any assistance in the future or if there are any questions. (2) Elevated LFTs: Admission and Anticipated Discharge Date Admission Date: August 26, 2021 Subjective Mr. Haider is somnolent. Per nursing he woke up from his ERCP combative and somewhat confused. He was given Zyprexa and have's been rather sedated ever since. Physical Exam Physical Exam: Sleeping. Not alert or oriented Gastrointestinal (Abdomen): Soft. Nontender. Nondistended Results & Data ([facility]) Vital Signs (Past 12 Hours) Vital Signs Temp Pulse Resp BP Pulse Ox 09/01/21 07:01 36.2 C L 60 19 111/60 91 08/31/21 23:54 36.6 C 79 18 140/74 98 PG Care Time/CCT Total # of Minutes Spent Total Time Spent with Patient: Total time spent is greater than 50% in coordination of care (as documented) at patient's floor/unit and/or counseling patient: Coding Level of Care Code 62809 Subseq Hosp Care Lvl 3 Diagnoses Gallstones K80.20 Elevated LFTs R79.89
--- NOTE | 2021-09-01 15:21 | Gastroenterology Progress Note ---
Date of Service September 01, 2021 Assessment & Plan Admission and Anticipated Discharge Date Admission Date: August 26, 2021 Subjective Patient was seen and examined today, doing well post ERCP, AST/ALT improving and abdominal pain resolved. Seen by surgery and he is not a candidate for cholecystectomy. Plan: Advance diet. Follow up with GI office as OP. Follow up Liver Bx, if it showed biliary etiology then can plan for [facility] as OP. Recall GI if needed. Results & Data ([facility]) Vital Signs (Past 12 Hours) Vital Signs Temp Pulse Resp BP Pulse Ox 09/01/21 11:07 36.5 C 59 L 19 112/55 L 92 09/01/21 07:01 36.2 C L 60 19 111/60 91
--- NOTE | 2021-09-01 16:31 | Hospitalist Progress Note ---
Date of Service September 01, 2021 Assessment & Plan (1) Transaminitis: Plan: Noted during admission last month, at that time had a gallbladder ultrasound that was unremarkable Elevated LFT with AST 113 and ALT [address] ABD/pelvis today showing the gallbladder is distended and there are numerous small calcified gallstones. There is minimal pericholecystic infiltration. Correlate with clinical and laboratory findings for evidence of mild acute cholecystitis. Given gallstones noted on CT scan, ?? Choledocholithiasis RUQ US showed A few tiny gallstones/sludge. No gallbladder wall thickening. Has been on IV Zosyn day #6, will discontinue abx Gastro on board EUS showed gallstones and sludge, CBD was not dilated, there was a ?? choledocholithiasis however Liver biopsy was obtained to r/o other etiologies of elevated LFTs. Continue monitor Liver enzymes ERCP done, sphincterotomy performed and the duct was swept and only minimal sludge removed, no stones seen. Follow up with pathology from liver biopsy outpatient with GI Cholelithiasis No evidence of acute cholecystitis Check RUQ US-did not show any features of acute cholecystitis but may have a tiny gallstone without any dilatation of the common bile duct Started on IV Cipro and Flagyl-IV antibiotic has been changed to Zosyn Likely the cause for the abdominal discomfort and transaminitis Appreciate surgery and GI input Still complains to have right upper quadrant discomfort with nausea ERCP done, sphincterotomy performed and the duct was swept and only minimal sludge removed, no stones seen as per GI Gastro recommended surgery for cholecystectomy Surgery on board - Not a surgical candidate for laparoscopic cholecystectomy Tolerated full liquid diet, will advance to Low fiber (2) Generalized weakness: Plan: Suspected GI bleed Has been getting intravenous Protonix No evidence of hematemesis and melena Hemoglobin remains stable at 14.1 PT/OT eval (3) Elevated troponin: Plan: Trend troponin Resting echo-unchanged from prior study and perhaps slight improvement with overall systolic function Orthostatic BPs, may need additional medication adjustment Patient's advanced age and multiple comorbid conditions likely contributing to his generalized weakness Cardiology consult-appreciate cardiology input and recommendation No evidence of ACS No cardiac symptoms and remains hemodynamically stable (4) Elevated d-dimer: Plan: Patient presenting from home with reports of generalized weakness, lightheadedness. Recently seen in cardiology clinic and found to be orthostatic, Lasix and isosorbide doses reduced. In the ED, D-dimer 5800, troponin 100.2 --> 84.1. EKG demonstrates a paced rhythm. No chest pain, patient saturating well on room air. 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: Plan: Appears compensated, continue home dose of furosemide Continue ASA, beta-corky, nitrate (9) CKD (chronic kidney disease) stage 4, GFR 15-29 ml/min: Plan: Baseline creatinine mid 2s- low 3s Creatinine 2.5 today Follow renal functions Creatinine at 2.39 Stable (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: (12) Pacemaker: Plan: Device interrogation ordered (13) TIA (transient ischemic attack): Plan: History of Continue ASA, statin discontinued during recent admission due to transaminitis (14) DM type 2 (diabetes mellitus, type 2): Plan: Most recent Hgb A1c 9.2 on 07/2021 NovoLog per protocol while hospitalized (15) DVT prophylaxis: Plan: On IV heparin as above-discontinue IV heparin On subcu heparin Admission and Anticipated Discharge Date Admission Date: August 26, 2021 Subjective Pt was seen and examined for follow up of abdominal discomfort, nausea and weakness Lying in bed with no acute distress Pt said that his pain improves He said that he is not having any abdominal pain Denies any chest pain, palpitation and SOB Review of Systems Review of Systems: All systems reviewed & are unremarkable except as noted in Subjective Physical Exam 2 Physical Exam: General- No acute distress Head- atraumatic Eyes- PERRL, EOMI, ENT- oropharynx clear Neck- supple, no JVD Lungs- clear to auscultation Heart- regular rhythm; no murmur Abdomen- normal bowel sounds, soft, no tenderness Extremities- no calf tenderness Neuro- alert, oriented x 3; PERRL, EOMI; no facial palsy; no dysarthria Skin- warm & dry Results & Data Results & Data ([facility]) Vital Signs (Past 12 Hours) Vital Signs Temp Pulse Resp BP Pulse Ox 09/01/21 15:30 36.7 C 60 18 126/73 92 09/01/21 11:07 36.5 C 59 L 19 112/55 L 92 09/01/21 07:01 36.2 C L 60 19 111/60 91 (1) CAD (coronary artery disease) Associated angina: without angina Coronary Disease-Associated Artery/Lesion type: unspecified vessel or lesion type [place] vs. transplanted heart: [place] heart Qualified Code(s): I25.10 - Atherosclerotic heart disease of [place] coronary artery without angina pectoris
[2021-09-02] MEDS: PANTOprazole 40 MG in DEXTROSE 5% 100 ML IV SCH ×5 (01:17→22:07)
[2021-09-02] MEDS: LEVOTHYROXINE SODIUM 125 MCG TABLET PO SCH (06:18)
[2021-09-02] MEDS: ISOSORBIDE MONO EXTENDED REL 30 MG TABCR PO SCH (07:45)
[2021-09-02] MEDS: CYANOCOBALAMIN (B-12) 500 MCG TABLET PO SCH (07:46)
[2021-09-02] MEDS: CLOTRIMAZOLE 10 MG TROCHE BUCCAL SCH ×5 (07:46→23:37)
[2021-09-02] MEDS: METOPROLOL SUCC 50MG EXT REL TAB PO SCH (07:46)
[2021-09-02] MEDS: allopurinoL 100 MG TAB PO SCH (07:46)
[2021-09-02] MEDS: INSULIN ASPART PER UNIT SC SCH ×4 (07:47→20:17)
[2021-09-02 07:54] LABS: Alanine Aminotransferase 142 U/L (7-52); Albumin Globulin Ratio 1.1 (0.9-2); Albumin Level 2.7 gm/dl (3.4-5.0); Alkaline Phosphatase 359 U/L (34-104); Anion Gap 4 (3-11); BUN Creatinine Ratio 11.7 (10-20); Bilirubin,Total 5.9 mg/dl (0.2-1.0); Blood Urea Nitrogen 30 mg/dl (6-23); Calcium 8.6 mg/dl (8.5-10.1); Carbon Dioxide 30 mmol/L (21-32); Chloride 105 mmol/L (98-107); Creatinine Clr Calc Pharmacy 23.9 ml/min; Est GFR (African American) 25.5 ml/min; Globulin 2.4 gm/dl (2.5-4.0); Glucose 129 mg/dl (70-99(Fasting)); Sodium 139 mmol/L (136-145); Total Protein 5.1 gm/dl (6.0-8.3)
[2021-09-02 09:13] LABS: Potassium 4.3 mmol/L (3.5-5.1)
[2021-09-02] MEDS: DOXYCYCLINE HYCLATE 100 MG CAP PO SCH ×2 (10:52→19:52)
--- NOTE | 2021-09-02 14:11 | Hospitalist Progress Note ---
Date of Service September 02, 2021 Assessment & Plan (1) Transaminitis: Plan: Noted during admission last month, at that time had a gallbladder ultrasound that was unremarkable Elevated LFT with AST 113 and ALT [address] ABD/pelvis today showing the gallbladder is distended and there are numerous small calcified gallstones. There is minimal pericholecystic infiltration. Correlate with clinical and laboratory findings for evidence of mild acute cholecystitis. Given gallstones noted on CT scan, ?? Choledocholithiasis RUQ US showed A few tiny gallstones/sludge. No gallbladder wall thickening. Has been on IV Zosyn day #6, will discontinue abx Gastro on board EUS showed gallstones and sludge, CBD was not dilated, there was a questionable choledocholithiasis however Liver biopsy was obtained to r/o other etiologies of elevated LFTs. Continue monitor Liver enzymes ERCP done, sphincterotomy performed and the duct was swept and only minimal sludge removed, no stones seen. Follow up with pathology from liver biopsy outpatient with GI Patient has been feeling much better Pathology from the liver biopsy is pending Cholelithiasis No evidence of acute cholecystitis Check RUQ US-did not show any features of acute cholecystitis but may have a tiny gallstone without any dilatation of the common bile duct Started on IV Cipro and Flagyl-IV antibiotic has been changed to Zosyn Likely the cause for the abdominal discomfort and transaminitis Appreciate surgery and GI input Still complains to have right upper quadrant discomfort with nausea ERCP done, sphincterotomy performed and the duct was swept and only minimal sludge removed, no stones seen as per GI Gastro recommended surgery for cholecystectomy Surgery on board - Not a surgical candidate for laparoscopic cholecystectomy Tolerated full liquid diet, will advance to Low fiber Has been tolerating regular diet and was advised to take small amounts of food at one time and avoid any fatty foods Endoscopic ultrasound documented cholelithiasis (2) Generalized weakness: Plan: Suspected GI bleed Has been getting intravenous Protonix No evidence of hematemesis and melena Hemoglobin remains stable at 14.1 PT/OT eval -likely discharge depending on PT evaluation (3) Elevated troponin: Plan: Trend troponin Resting echo-unchanged from prior study and perhaps slight improvement with overall systolic function Orthostatic BPs, may need additional medication adjustment Patient's advanced age and multiple comorbid conditions likely contributing to his generalized weakness Cardiology consult-appreciate cardiology input and recommendation No evidence of ACS No cardiac symptoms and remains hemodynamically stable (4) Elevated d-dimer: Plan: Patient presenting from home with reports of generalized weakness, lightheadedness. Recently seen in cardiology clinic and found to be orthostatic, Lasix and isosorbide doses reduced. In the ED, D-dimer 5800, troponin 100.2 --> 84.1. EKG demonstrates a paced rhythm. No chest pain, patient saturating well on room air. 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: Plan: Appears compensated, continue home dose of furosemide Continue ASA, beta-croky, nitrate (9) CKD (chronic kidney disease) stage 4, GFR 15-29 ml/min: Plan: Baseline creatinine mid 2s- low 3s Creatinine 2.5 today Follow renal functions Creatinine at 2.39 Stable (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: (12) Pacemaker: Plan: Device interrogation ordered (13) TIA (transient ischemic attack): Plan: History of Continue ASA, statin discontinued during recent admission due to transaminitis (14) DM type 2 (diabetes mellitus, type 2): Plan: Most recent Hgb A1c 9.2 on 07/2021 NovoLog per protocol while hospitalized (15) DVT prophylaxis: Plan: On IV heparin as above-discontinue IV heparin On subcu heparin Admission and Anticipated Discharge Date Admission Date: August 26, 2021 Subjective 08/27/2021 The patient was seen and examined in telemetry unit He complains to have generalized weakness and minimal abdominal discomfort No shortness of breath at rest No fever and no chills and no nausea no vomiting 08/28/2021 The patient was seen and examined in telemetry unit He has had some nausea with vomiting last night and was on n.p.o. His blood counts remained stable and hemoglobin is a stable to Denies any abdominal pain but does have discomfort without any distention No chest pain, shortness of breath Left knee pain is reasonable 08/29/2021 9:32AM Dr. Maloney doing better, tolerated diet, no nausea, no vomiting, no fever, T, Bili 2.3, normal WBC 08/29/2021 The patient was seen and examined in telemetry unit Is still complains to have upper abdominal discomfort especially in the right upper quadrant with nausea without any vomiting No fever and or chills and no abdominal distention 09/02/2021 The patient was seen and examined in telemetry unit He has been feeling much better today Denies any more confusion and wants to go home Has been tolerating regular diet without any significant symptoms PT and OT evaluation prior to discharge tomorrow Review of Systems Review of Systems: General- No acute distress Head- atraumatic Eyes- PERRL, EOMI, ENT- oropharynx clear Neck- supple, no JVD Lungs- clear to auscultation Heart- regular rhythm; no murmur Abdomen- normal bowel sounds, soft, nontender Extremities- no calf tenderness Neuro- alert, oriented x 3; PERRL, EOMI; no facial palsy; no dysarthria Skin- warm & dry Gastrointestinal: Minimal discomfort in the upper abdomen and epigastrium without any distention Physical Exam Physical Exam: Lying in bed comfortably Constitutional: well developed, well nourished, + ill appearing and + obese Eyes: PERRL, conjunctivae normal, anicteric sclerae ENMT: external ear and nose normal, oropharynx normal Neck: trachea midline, no thyromegaly Respiratory: + respiratory distress Auscultation: + diminished lung sounds and + crackles (Minimal crackles at the bases) Cardiovascular: Rate/Rhythm: regular rate and regular rhythm; not tachycardic Heart Sounds: normal S1 and normal S2; no murmur Extremities: + edema Gastrointestinal (Abdomen): Inspection/Auscultation: normal bowel sounds; abdomen not distended Percussion/Palpation: + abdomen tender (Minimal tenderness right upper quadrant) and abdomen soft Musculoskeletal: No acute arthritis in any joint Neurologic: Alert, awake and oriented x3. Generally weak but no focal neurodeficit Psychiatric: A+Ox3, euthymic affect Lymphatic: no cervical or axillary lymphadenopathy Results & Data Results & Data ([facility]) Vital Signs (Past 12 Hours) Vital Signs Temp Pulse Resp BP Pulse Ox 09/02/21 11:29 36.5 C 61 19 108/64 91 09/02/21 08:00 36.8 C 73 18 99/60 L 93 09/02/21 03:09 36.8 C 60 18 112/62 92 Laboratory Results BMP 09/02/21 09/02/21 07:05 08:09 Sodium 139 Potassium TNP 4.3 Chloride 105 Carbon Dioxide 30 BUN 30 H Creatinine 2.57 H Glucose 129 H Calcium 8.6 Liver Function 09/02/21 09/02/21 Range/Units 07:05 08:09 Total Bilirubin 5.9 H D (0.2-1.0) mg/dl AST TNP 114 H ALT 142 H (7-52) U/L Alkaline Phosphatase 359 H (34-104) U/L Albumin 2.7 L (3.4-5.0) gm/dl Medications Administered Current Inpatient Medications Acetaminophen (Acetaminophen 325 Mg Tab) 650 mg PO Q4H PRN PRN Reason: Pain or Fever Stop: 09/25/21 19:15 Last Admin: 08/30/21 11:21 Dose: 650 mg Documented by: Allopurinol (Allopurinol 100 Mg Tab) 200 mg PO DAILY TIMBO Stop: 09/26/21 08:59 Last Admin: 09/02/21 07:46 Dose: 200 mg Documented by: Aspirin (Aspirin 81 Mg Ectab) 81 mg PO Q2D TIMBO Stop: 09/26/21 08:59 Last Admin: 08/27/21 10:33 Dose: 81 mg Documented by: Clotrimazole (Clotrimazole 10 Mg Kareem) 10 mg BUCCAL [id number] TIMBO Stop: 09/07/21 22:59 Last Admin: 09/02/21 11:38 Dose: 10 mg Documented by: Cyanocobalamin (Cyanocobalamin (B-12) 500 Mcg Tablet) 1,000 mcg PO QAM TIMBO Stop: 09/26/21 08:59 Last Admin: 09/02/21 07:46 Dose: 1,000 mcg Documented by: Dextrose (Dextrose 50% 50 Ml Syringe) 25 - 50 ml IV UD PRN; Protocol PRN Reason: Hypoglycemia Protocol Stop: 09/25/21 19:15 Doxycycline Hyclate (Doxycycline Hyclate 100 Mg Cap) 100 mg PO BID TIMBO Stop: 09/03/21 20:59 Last Admin: 09/02/21 10:52 Dose: 100 mg Documented by: Furosemide (Furosemide 40 Mg Tab) 40 mg PO DAILY TIMBO Stop: 09/26/21 08:59 Last Admin: 08/31/21 09:30 Dose: 40 mg Documented by: Gabapentin (Gabapentin 400 Mg Cap) 400 mg PO HS TIMBO Stop: 09/25/21 20:59 Last Admin: 08/31/21 20:09 Dose: 400 mg Documented by: Glucagon (Glucagon For Inj 1 Mg Vial) 1 mg SQ UD PRN; Protocol PRN Reason: Hypoglycemia Protocol Stop: 09/25/21 19:15 Glucose (Glucose 40% Gel 15 Gm Tube) 15 - 30 gm PO UD PRN; Protocol PRN Reason: Hypoglycemia Protocol Stop: 09/25/21 19:15 Glucose (Glucose 10 Tabs/Tube) 4 - 8 tabs PO UD PRN; Protocol PRN Reason: Hypoglycemia Protocol Stop: 09/25/21 19:15 Heparin Sodium (Porcine) (Heparin Sod 5,000 Unit/0.5 Ml Vial) 5,000 units SQ Q8 TIMBO Stop: 09/26/21 21:59 Last Admin: 08/27/21 21:43 Dose: 5,000 units Documented by: Hydromorphone HCl (Hydromorphone Inj 0.5 Mg/0.5 Ml Syr) 0.25 mg IV Q6H PRN PRN Reason: Pain Stop: 09/10/21 01:31 Promethazine HCl 12.5 mg/ (Sodium Chloride) 50.5 mls @ 202 mls/hr IV Q6H PRN PRN Reason: Nausea And Vomiting Stop: 09/27/21 00:34 Last Infusion: 08/29/21 11:13 Dose: Infused Documented by: Pantoprazole Sodium 40 mg/ (Dextrose) 100 mls @ 20 mls/hr IV Q5H [facility] Stop: 09/27/21 02:14 Last Admin: 09/02/21 11:38 Dose: 8 mg/hr, 20 mls/hr Documented by: Insulin Aspart (Insulin Aspart Per Unit) 0 units SC ACHS TIMBO Stop: 09/26/21 16:29 Last Admin: 09/02/21 12:59 Dose: 4 units Documented by: Isosorbide Mononitrate (Isosorbide [place] Extended Rel 30 Mg Tabcr) 30 mg PO QAM [facility] Stop: 09/26/21 08:59 Last Admin: 09/02/21 07:45 Dose: 30 mg Documented by: Levothyroxine Sodium (Levothyroxine Sodium 125 Mcg Tablet) 125 mcg PO DAILYBB [facility] Stop: 09/26/21 06:29 Last Admin: 09/02/21 06:18 Dose: 125 mcg Documented by: Metoprolol Succinate (Metoprolol Succ 50mg Ext Rel Tab) [facility] Stop: 09/26/21 08:59 Last Admin: 09/02/21 07:46 Dose: 100 mg Documented by: Miscellaneous (Carbohydrates For Hypoglycemia ) 15 - 30 gm PO UD PRN PRN Reason: Hypoglycemia Protocol Stop: 09/25/21 19:15 Olanzapine (Olanzapine 10 Mg/2.1 Ml Sdv) 2.5 mg IM Q4H PRN PRN Reason: Anxiety/Agitation Stop: 09/30/21 20:37 Last Admin: 08/31/21 20:50 Dose: 2.5 mg Documented by: Tramadol HCl (Tramadol Hcl 50 Mg Tablet) 25 - 50 mg PO Q4H PRN PRN Reason: Pain Stop: 09/26/21 01:31 Last Admin: 08/27/21 02:56 Dose: 50 mg Documented by: (1) CAD (coronary artery disease) Associated angina: without angina Coronary Disease-Associated Artery/Lesion type: unspecified vessel or lesion type [place] vs. transplanted heart: [place] heart Qualified Code(s): I25.10 - Atherosclerotic heart disease of [place] coronary artery without angina pectoris
--- NOTE | 2021-09-02 17:57 | Progress Notes ---
DATE OF SERVICE: 09/02/2021 Robi is seen in his room. He reports that the knee feels well. He is able to do a leg raise and be nd his knee to about 110 degrees. There is no effusion in the knee. The erythema has resolved. He does not have any knee tenderness. There is no knee effusion. Band-Aid removed revealing 0.5 cm are a of healing eschar on the skin. No purulence or tenderness or drainage. I think that his knee pain was due to some cellulitis, which has since resolved. He should finish out a 5-7 day total course o f IV or oral antibiotics for his left knee cellulitis. He may come in to see me in the office as chelsie lin. Job ID: [id number]
[2021-09-03] MEDS: PANTOprazole 40 MG in DEXTROSE 5% 100 ML IV SCH ×3 (03:32→12:56)
[2021-09-03] MEDS: LEVOTHYROXINE SODIUM 125 MCG TABLET PO SCH (06:16)
[2021-09-03] MEDS: CLOTRIMAZOLE 10 MG TROCHE BUCCAL SCH ×6 (06:16→22:34)
[2021-09-03 07:08] LABS: Creatinine Clr Calc Pharmacy 21.2 ml/min; Est GFR (African American) 24.2 ml/min; Est GFR (Non-African American) 20.9 ml/min
[2021-09-03] MEDS: INSULIN ASPART PER UNIT SC SCH ×4 (08:01→20:30)
[2021-09-03] MEDS: ISOSORBIDE MONO EXTENDED REL 30 MG TABCR PO SCH (08:02)
[2021-09-03] MEDS: allopurinoL 100 MG TAB PO SCH (08:02)
[2021-09-03] MEDS: METOPROLOL SUCC 50MG EXT REL TAB PO SCH (08:02)
[2021-09-03] MEDS: CYANOCOBALAMIN (B-12) 500 MCG TABLET PO SCH (08:02)
[2021-09-03] MEDS: DOXYCYCLINE HYCLATE 100 MG CAP PO SCH (08:03)
--- NOTE | 2021-09-03 13:38 | Hospitalist Progress Note ---
Date of Service September 03, 2021 Assessment & Plan (1) Transaminitis: Plan: Noted during admission last month, at that time had a gallbladder ultrasound that was unremarkable Elevated LFT with AST 113 and ALT [address] ABD/pelvis today showing the gallbladder is distended and there are numerous small calcified gallstones. There is minimal pericholecystic infiltration. Correlate with clinical and laboratory findings for evidence of mild acute cholecystitis. Given gallstones noted on CT scan, ?? Choledocholithiasis RUQ US showed A few tiny gallstones/sludge. No gallbladder wall thickening. Has been on IV Zosyn day #6, will discontinue abx Gastro on board EUS showed gallstones and sludge, CBD was not dilated, there was a questionable choledocholithiasis however Liver biopsy was obtained to r/o other etiologies of elevated LFTs. Continue monitor Liver enzymes ERCP done, sphincterotomy performed and the duct was swept and only minimal sludge removed, no stones seen. 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 there is hepatitis, sinusoidal dilation and focal fibrosis Liver function seems to be a little worse today Cholelithiasis No evidence of acute cholecystitis Check RUQ US-did not show any features of acute cholecystitis but may have a tiny gallstone without any dilatation of the common bile duct Started on IV Cipro and Flagyl-IV antibiotic has been changed to Zosyn Likely the cause for the abdominal discomfort and transaminitis Appreciate surgery and GI input Still complains to have right upper quadrant discomfort with nausea ERCP done, sphincterotomy performed and the duct was swept and only minimal sludge removed, no stones seen as per GI Gastro recommended surgery for cholecystectomy Surgery on board - Not a surgical candidate for laparoscopic cholecystectomy Tolerated full liquid diet, will advance to Low fiber Has been tolerating regular diet and was advised to take small amounts of food at one time and avoid any fatty foods Endoscopic ultrasound documented cholelithiasis (2) Generalized weakness: Plan: Suspected GI bleed Has been getting intravenous Protonix No evidence of hematemesis and melena Hemoglobin remains stable at 14.1 PT/OT eval -likely discharge depending on PT evaluation Has had syncopal episode secondary to vasovagal effect this morning He will not be going to [facility] today Advised to drink more fluid but no IV fluid was given as the blood pressure was normal (3) Elevated troponin: Plan: Trend troponin Resting echo-unchanged from prior study and perhaps slight improvement with overall systolic function Orthostatic BPs, may need additional medication adjustment Patient's advanced age and multiple comorbid conditions likely contributing to his generalized weakness Cardiology consult-appreciate cardiology input and recommendation No evidence of ACS No cardiac symptoms and remains hemodynamically stable (4) Elevated d-dimer: Plan: Patient presenting from home with reports of generalized weakness, lightheadedness. Recently seen in cardiology clinic and found to be orthostatic, Lasix and isosorbide doses reduced. In the ED, D-dimer 5800, troponin 100.2 --> 84.1. EKG demonstrates a paced rhythm. No chest pain, patient saturating well on room air. 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: Plan: Appears compensated, continue home dose of furosemide Continue ASA, beta-corky, nitrate (9) CKD (chronic kidney disease) stage 4, GFR 15-29 ml/min: Plan: Baseline creatinine mid 2s- low 3s Creatinine 2.5 today Follow renal functions Creatinine at 2.39 Stable (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: (12) Pacemaker: Plan: Device interrogation ordered (13) TIA (transient ischemic attack): Plan: History of Continue ASA, statin discontinued during recent admission due to transaminitis (14) DM type 2 (diabetes mellitus, type 2): Plan: Most recent Hgb A1c 9.2 on 07/2021 NovoLog per protocol while hospitalized (15) DVT prophylaxis: Plan: On IV heparin as above-discontinue IV heparin On subcu heparin Admission and Anticipated Discharge Date Admission Date: August 26, 2021 Subjective 08/27/2021 The patient was seen and examined in telemetry unit He complains to have generalized weakness and minimal abdominal discomfort No shortness of breath at rest No fever and no chills and no nausea no vomiting 08/28/2021 The patient was seen and examined in telemetry unit He has had some nausea with vomiting last night and was on n.p.o. His blood counts remained stable and hemoglobin is a stable to Denies any abdominal pain but does have discomfort without any distention No chest pain, shortness of breath Left knee pain is reasonable 08/29/2021 9:32AM Dr. Maloney doing better, tolerated diet, no nausea, no vomiting, no fever, T, Bili 2.3, normal WBC 08/29/2021 The patient was seen and examined in telemetry unit Is still complains to have upper abdominal discomfort especially in the right upper quadrant with nausea without any vomiting No fever and or chills and no abdominal distention 09/02/2021 The patient was seen and examined in telemetry unit He has been feeling much better today Denies any more confusion and wants to go home Has been tolerating regular diet without any significant symptoms PT and OT evaluation prior to discharge tomorrow 09/03/2021 The patient was seen and examined in telemetry unit He has had a syncopal episode while in the bathroom this morning Initial blood pressure was noted to be very low but that improved with lying down He was seen after that and did not have any significant complaints Review of Systems Review of Systems: All systems reviewed and are unremarkable except as noted below Gastrointestinal: Minimal discomfort in the upper abdomen and epigastrium without any distention Physical Exam Physical Exam: Lying in bed comfortably but remains very weak Constitutional: well developed, well nourished, + ill appearing and + obese Eyes: PERRL, conjunctivae normal, anicteric sclerae ENMT: external ear and nose normal, oropharynx normal Neck: trachea midline, no thyromegaly Respiratory: + respiratory distress Auscultation: + diminished lung sounds and + crackles (Minimal crackles at the bases) Cardiovascular: Rate/Rhythm: regular rate and regular rhythm; not tachycardic Heart Sounds: normal S1 and normal S2; no murmur Extremities: + edema Gastrointestinal (Abdomen): Inspection/Auscultation: normal bowel sounds; abdomen not distended Percussion/Palpation: + abdomen tender (Minimal tenderness right upper quadrant) and abdomen soft Musculoskeletal: No acute arthritis in any joint Neurologic: Alert, awake and oriented x3. Generally very weak and lethargic Psychiatric: A+Ox3, euthymic affect Lymphatic: no cervical or axillary lymphadenopathy Results & Data Results & Data ([facility]) Vital Signs (Past 12 Hours) Vital Signs Temp Pulse Resp BP BP Pulse Ox 09/03/21 11:03 36.4 C L 64 18 129/69 93 09/03/21 09:50 133/76 09/03/21 09:30 65 20 142/70 H 09/03/21 09:20 69 20 81/31 L 97 09/03/21 07:31 36.8 C 60 18 116/62 91 09/03/21 04:00 36.6 C 63 18 110/64 93 Laboratory Results BMP 09/03/21 06:14 Creatinine 2.68 H Medications Administered Current Inpatient Medications Acetaminophen (Acetaminophen 325 Mg Tab) 650 mg PO Q4H PRN PRN Reason: Pain or Fever Stop: 09/25/21 19:15 Last Admin: 08/30/21 11:21 Dose: 650 mg Documented by: Allopurinol (Allopurinol 100 Mg Tab) 200 mg PO DAILY TIMBO Stop: 09/26/21 08:59 Last Admin: 09/03/21 08:02 Dose: 200 mg Documented by: Aspirin (Aspirin 81 Mg Ectab) 81 mg PO Q2D TIMBO Stop: 09/26/21 08:59 Last Admin: 08/27/21 10:33 Dose: 81 mg Documented by: Clotrimazole (Clotrimazole 10 Mg Kareem) 10 mg BUCCAL [id number] TIMBO Stop: 09/07/21 22:59 Last Admin: 09/03/21 11:17 Dose: Not Given Documented by: Cyanocobalamin (Cyanocobalamin (B-12) 500 Mcg Tablet) 1,000 mcg PO QAM TIMBO Stop: 09/26/21 08:59 Last Admin: 09/03/21 08:02 Dose: 1,000 mcg Documented by: Dextrose (Dextrose 50% 50 Ml Syringe) 25 - 50 ml IV UD PRN; Protocol PRN Reason: Hypoglycemia Protocol Stop: 09/25/21 19:15 Doxycycline Hyclate (Doxycycline Hyclate 100 Mg Cap) 100 mg PO BID TIMBO Stop: 09/03/21 20:59 Last Admin: 09/03/21 08:03 Dose: 100 mg Documented by: Furosemide (Furosemide 40 Mg Tab) 40 mg PO DAILY TIMBO Stop: 09/26/21 08:59 Last Admin: 08/31/21 09:30 Dose: 40 mg Documented by: Gabapentin (Gabapentin 400 Mg Cap) 400 mg PO HS [facility] Stop: 09/25/21 20:59 Last Admin: 08/31/21 20:09 Dose: 400 mg Documented by: Glucagon (Glucagon For Inj 1 Mg Vial) 1 mg SQ UD PRN; Protocol PRN Reason: Hypoglycemia Protocol Stop: 09/25/21 19:15 Glucose (Glucose 40% Gel 15 Gm Tube) 15 - 30 gm PO UD PRN; Protocol PRN Reason: Hypoglycemia Protocol Stop: 09/25/21 19:15 Glucose (Glucose 10 Tabs/Tube) 4 - 8 tabs PO UD PRN; Protocol PRN Reason: Hypoglycemia Protocol Stop: 09/25/21 19:15 Heparin Sodium (Porcine) (Heparin Sod 5,000 Unit/0.5 Ml Vial) 5,000 units SQ Q8 TIMBO Stop: 09/26/21 21:59 Last Admin: 08/27/21 21:43 Dose: 5,000 units Documented by: Hydromorphone HCl (Hydromorphone Inj 0.5 Mg/0.5 Ml Syr) 0.25 mg IV Q6H PRN PRN Reason: Pain Stop: 09/10/21 01:31 Promethazine HCl 12.5 mg/ (Sodium Chloride) 50.5 mls @ 202 mls/hr IV Q6H PRN PRN Reason: Nausea And Vomiting Stop: 09/27/21 00:34 Last Infusion: 08/29/21 11:13 Dose: Infused Documented by: Pantoprazole Sodium 40 mg/ (Dextrose) 100 mls @ 20 mls/hr IV Q5H [facility] Stop: 09/27/21 02:14 Last Admin: 09/03/21 12:56 Dose: 8 mg/hr, 20 mls/hr Documented by: Insulin Aspart (Insulin Aspart Per Unit) 0 units SC ACHS [facility] Stop: 09/26/21 16:29 Last Admin: 09/03/21 12:05 Dose: Not Given Documented by: Isosorbide Mononitrate (Isosorbide Nash Extended Rel 30 Mg Tabcr) 30 mg PO QAM [facility] Stop: 09/26/21 08:59 Last Admin: 09/03/21 08:02 Dose: 30 mg Documented by: Levothyroxine Sodium (Levothyroxine Sodium 125 Mcg Tablet) 125 mcg PO DAILYBB [facility] Stop: 09/26/21 06:29 Last Admin: 09/03/21 06:16 Dose: 125 mcg Documented by: Metoprolol Succinate (Metoprolol Succ 50mg Ext Rel Tab) 100 mg PO QAM [facility] Stop: 09/26/21 08:59 Last Admin: 09/03/21 08:02 Dose: 100 mg Documented by: Miscellaneous (Carbohydrates For Hypoglycemia ) 15 - 30 gm PO UD PRN PRN Reason: Hypoglycemia Protocol Stop: 09/25/21 19:15 Olanzapine (Olanzapine 10 Mg/2.1 Ml Sdv) 2.5 mg IM Q4H PRN PRN Reason: Anxiety/Agitation Stop: 09/30/21 20:37 Last Admin: 08/31/21 20:50 Dose: 2.5 mg Documented by: Tramadol HCl (Tramadol Hcl 50 Mg Tablet) 25 - 50 mg PO Q4H PRN PRN Reason: Pain Stop: 09/26/21 01:31 Last Admin: 08/27/21 02:56 Dose: 50 mg Documented by: (1) CAD (coronary artery disease) Associated angina: without angina Coronary Disease-Associated Artery/Lesion type: unspecified vessel or lesion type [place] vs. transplanted heart: [place] heart Qualified Code(s): I25.10 - Atherosclerotic heart disease of [place] coronary artery without angina pectoris
[2021-09-03] MEDS ORDERED: Nursing to Pharmacy Communication SCH (16:15)
[2021-09-03] MEDS: PANTOprazole 40 MG TAB PO SCH (20:37)
[2021-09-04] MEDS: LEVOTHYROXINE SODIUM 125 MCG TABLET PO SCH (05:45)
[2021-09-04] MEDS: CLOTRIMAZOLE 10 MG TROCHE BUCCAL SCH ×6 (06:02→22:05)
[2021-09-04 08:01] LABS: Albumin Globulin Ratio 1.2 (0.9-2); Albumin Level 2.6 gm/dl (3.4-5.0); BUN Creatinine Ratio 18.6 (10-20); Bilirubin,Total 7.5 mg/dl (0.2-1.0); Calcium 8.6 mg/dl (8.5-10.1); Creatinine Clr Calc Pharmacy 25.1 ml/min; Est GFR (African American) 29.8 ml/min; Est GFR (Non-African American) 25.7 ml/min; Globulin 2.1 gm/dl (2.5-4.0); Potassium 3.7 mmol/L (3.5-5.1); Total Protein 4.7 gm/dl (6.0-8.3)
[2021-09-04 08:07] LABS: Basophils # (auto) 0.01 K/uL (0-0.2); Basophils % (auto) 0.2 %; Eosinophils # (auto) 0.07 K/uL (0-0.5); Eosinophils % (auto) 1.1 %; Hematocrit (blood only) 35.9 % (42-52); Hemoglobin 12.2 g/dL (14.0-18.0); Immature Granulocytes # (auto) 0.03 K/uL (0.00-0.02); Immature Granulocytes % (auto) 0.5 %; Lymphocytes # (auto) 2.83 K/uL (1.2-3.4); Lymphocytes % (auto) 44.1 %; Mean Corpuscular Hemoglobin 33.6 pg (25-34); Mean Corpuscular Volume 98.9 fL (80-100); Monocytes # (auto) 0.88 K/uL (0.11-0.59); Monocytes % (auto) 13.7 %; Neutrophils # (auto) 2.59 K/uL (1.4-6.5); Neutrophils % (auto) 40.4 %; Platelet Count 173 K/uL (130-400); RDW Standard Deviation 60.9 fL (36.4-46.3); Red Blood Count 3.63 M/uL (4.7-6.1); White Blood Count 6.41 K/uL (4.8-10.8)
[2021-09-04] MEDS: INSULIN ASPART PER UNIT SC SCH ×4 (09:05→20:32)
[2021-09-04] MEDS: METOPROLOL SUCC 50MG EXT REL TAB PO SCH (10:07)
[2021-09-04] MEDS: CYANOCOBALAMIN (B-12) 500 MCG TABLET PO SCH (10:07)
[2021-09-04] MEDS: allopurinoL 100 MG TAB PO SCH (10:08)
[2021-09-04] MEDS: PANTOprazole 40 MG TAB PO SCH ×2 (10:10→21:56)
[2021-09-04] MEDS: ISOSORBIDE MONO EXTENDED REL 30 MG TABCR PO SCH (10:11)
--- NOTE | 2021-09-04 13:37 | Gastroenterology Progress Note ---
Date of Service September 04, 2021 Assessment & Plan (1) Elevated LFTs: Plan: s/p ERCP with sphincterotomy 08/31, liver bx with nonspecific findings perhaps autoimmune hepatitis. it appears a CBD stone is unlikely as he just had a sphincterotomy, case was discussed with Dr. Arango who performed the ERCP on 08/31. recs: obtain US abdomen now to further evaluate, if signs of CBD dilation then will consider repeat ERCP if US is negative then he may benefit from tx for possible autoimmune hepatitis check IgG, IgA, IgM levels now diet as tolerated, supportive care Admission and Anticipated Discharge Date Admission Date: August 26, 2021 Subjective GI reconsulted as LFTs are worsening. ALP and tbili in particular now 604 and 7.5 respectively. underwent ERCP with sphincterotomy on 08/31, no significant CBD stones noted. He feels well at this time, has no complaints denies abdominal pains. liver bx shows nonspecific findings. labs reviewed. Review of Systems Constitutional: no fever and no chills Respiratory: no cough, no dyspnea and no dyspnea on exertion Cardiovascular: no chest pain and no dyspnea Gastrointestinal: as per Subjective / HPI Psychiatric: no depression and no anxiety Physical Exam Constitutional: WD/WN, vitals as above Respiratory: normal respiratory effort, lungs clear to auscultation Cardiovascular: RRR, no murmur, no edema Gastrointestinal (Abdomen): normal bowel sounds, soft, nontender, no hepatosplenomegaly Musculoskeletal: no lower extremity edema Psychiatric: A+Ox3, euthymic affect Results & Data Results & Data ([facility]) Vital Signs (Past 12 Hours) Vital Signs Temp Pulse Pulse Resp BP BP Pulse Ox 09/04/21 10:59 36.8 C 60 19 135/67 96 09/04/21 08:14 36.5 C 60 18 109/61 96 09/04/21 07:40 60 09/04/21 07:37 09/04/21 03:00 36.7 C 86 18 110/79 96 Pulse Ox 09/04/21 10:59 09/04/21 08:14 09/04/21 07:40 09/04/21 07:37 95 09/04/21 03:00 PG Care Time/CCT Total # of Minutes Spent Total Time Spent with Patient: Total time spent is greater than 50% in coordination of care (as documented) at patient's floor/unit and/or counseling patient: Coding Level of Care Code 68760 Subseq Hosp Care Lvl 3 Diagnoses Elevated LFTs R79.89
--- NOTE | 2021-09-04 14:27 | Hospitalist Progress Note ---
Date of Service September 04, 2021 Assessment & Plan (1) Transaminitis: Plan: Noted during admission last month, at that time had a gallbladder ultrasound that was unremarkable Elevated LFT with AST 113 and ALT [address] ABD/pelvis today showing the gallbladder is distended and there are numerous small calcified gallstones. There is minimal pericholecystic infiltration. Correlate with clinical and laboratory findings for evidence of mild acute cholecystitis. Given gallstones noted on CT scan, ?? Choledocholithiasis RUQ US showed A few tiny gallstones/sludge. No gallbladder wall thickening. Has been on IV Zosyn -finish the course and is discontinued Gastro on board EUS showed gallstones and sludge, CBD was not dilated, there was a questionable choledocholithiasis however Liver biopsy was obtained to r/o other etiologies of elevated LFTs. Continue monitor Liver enzymes ERCP done, sphincterotomy performed and the duct was swept and only minimal sludge removed, no stones seen. 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 there is hepatitis, sinusoidal dilation and focal fibrosis Liver function seems to be worse without any significant symptoms-appreciate GI reevaluation Will get ultrasound and check IgG, IgA and IgM levels Syncopal episode Likely secondary to postural hypotension No definite loss of consciousness Blood pressure noted to be very low on standing during the episode Has been ambulating without any symptoms Awaiting placement Cholelithiasis status post ERCP No evidence of acute cholecystitis Check RUQ US-did not show any features of acute cholecystitis but may have a tiny gallstone without any dilatation of the common bile duct Started on IV Cipro and Flagyl-IV antibiotic has been changed to Zosyn Likely the cause for the abdominal discomfort and transaminitis Appreciate surgery and GI input Still complains to have right upper quadrant discomfort with nausea ERCP done, sphincterotomy performed and the duct was swept and only minimal sludge removed, no stones seen as per GI Gastro recommended surgery for cholecystectomy Surgery on board - Not a surgical candidate for laparoscopic cholecystectomy Tolerated full liquid diet, will advance to Low fiber Has been tolerating regular diet and was advised to take small amounts of food at one time and avoid any fatty foods Endoscopic ultrasound documented cholelithiasis No evidence of acute cholecystitis clinically (2) Generalized weakness: Plan: Suspected GI bleed Has been getting intravenous Protonix No evidence of hematemesis and melena Hemoglobin remains stable at 14.1 PT/OT eval -likely discharge depending on PT evaluation Has had syncopal episode secondary to vasovagal effect this morning He [facility] not [facility] Advised to drink more fluid but no IV fluid was given as the blood pressure was normal No more episodes of syncope and or postural hypotension (3) Elevated troponin: Plan: Trend troponin Resting echo-unchanged from prior study and perhaps slight improvement with overall systolic function Orthostatic BPs, may need additional medication adjustment Patient's advanced age and multiple comorbid conditions likely contributing to his generalized weakness Cardiology consult-appreciate cardiology input and recommendation No evidence of ACS No cardiac symptoms and remains hemodynamically stable (4) Elevated d-dimer: Plan: Patient presenting from home with reports of generalized weakness, lightheadedness. Recently seen in cardiology clinic and found to be orthostatic, Lasix and isosorbide doses reduced. In the ED, D-dimer 5800, troponin 100.2 --> 84.1. EKG demonstrates a paced rhythm. No chest pain, patient saturating well on room air. 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: Plan: Appears compensated, continue home dose of furosemide Continue ASA, beta-corky, nitrate (9) CKD (chronic kidney disease) stage 4, GFR 15-29 ml/min: Plan: Baseline creatinine mid 2s- low 3s Creatinine 2.5 today Follow renal functions Creatinine at 2.39 Stable (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: (12) Pacemaker: Plan: Device interrogation ordered (13) TIA (transient ischemic attack): Plan: History of Continue ASA, statin discontinued during recent admission due to transaminitis (14) DM type 2 (diabetes mellitus, type 2): Plan: Most recent Hgb A1c 9.2 on 07/2021 NovoLog per protocol while hospitalized (15) DVT prophylaxis: Plan: On IV heparin as above-discontinue IV heparin On subcu heparin Admission and Anticipated Discharge Date Admission Date: August 26, 2021 Subjective 08/27/2021 The patient was seen and examined in telemetry unit He complains to have generalized weakness and minimal abdominal discomfort No shortness of breath at rest No fever and no chills and no nausea no vomiting 08/28/2021 The patient was seen and examined in telemetry unit He has had some nausea with vomiting last night and was on n.p.o. His blood counts remained stable and hemoglobin is a stable to Denies any abdominal pain but does have discomfort without any distention No chest pain, shortness of breath Left knee pain is reasonable 08/29/2021 9:32AM Dr. Maloney doing better, tolerated diet, no nausea, no vomiting, no fever, T, Bili 2.3, normal WBC 08/29/2021 The patient was seen and examined in telemetry unit Is still complains to have upper abdominal discomfort especially in the right upper quadrant with nausea without any vomiting No fever and or chills and no abdominal distention 09/02/2021 The patient was seen and examined in telemetry unit He has been feeling much better today Denies any more confusion and wants to go home Has been tolerating regular diet without any significant symptoms PT and OT evaluation prior to discharge tomorrow 09/03/2021 The patient was seen and examined in telemetry unit He has had a syncopal episode while in the bathroom this morning Initial blood pressure was noted to be very low but that improved with lying down He was seen after that and did not have any significant complaints 09/04/2021 The patient was seen and examined in telemetry unit He did not have any more episode of syncope when he was up and about to the bathroom He was noted to be more jaundiced but denies any symptoms Review of Systems Review of Systems: All systems reviewed and are unremarkable except as noted below Gastrointestinal: Minimal discomfort in the upper abdomen and epigastrium without any distention Physical Exam Physical Exam: Lying in bed comfortably but remains very weak Constitutional: well developed, well nourished, + ill appearing and + obese Eyes: Has icteric sclera ENMT: external ear and nose normal, oropharynx normal Neck: trachea midline, no thyromegaly Respiratory: + respiratory distress Auscultation: + diminished lung sounds and + crackles (Minimal crackles at the bases) Cardiovascular: Rate/Rhythm: regular rate and regular rhythm; not tachycardic Heart Sounds: normal S1 and normal S2; no murmur Extremities: + edema Gastrointestinal (Abdomen): Inspection/Auscultation: normal bowel sounds; abdomen not distended Percussion/Palpation: abdomen soft; abdomen nontender (Minimal tenderness right upper quadrant) Musculoskeletal: No acute arthritis in any joint Neurologic: Alert, awake and oriented x3. Generally weak Psychiatric: A+Ox3, euthymic affect Lymphatic: no cervical or axillary lymphadenopathy Results & Data Results & Data ([facility]) Vital Signs (Past 12 Hours) Vital Signs Temp Pulse Pulse Resp BP BP Pulse Ox 09/04/21 10:59 36.8 C 60 19 135/67 96 09/04/21 08:14 36.5 C 60 18 109/61 96 09/04/21 07:40 60 09/04/21 07:37 09/04/21 03:00 36.7 C 86 18 110/79 96 Pulse Ox 09/04/21 10:59 09/04/21 08:14 09/04/21 07:40 09/04/21 07:37 95 09/04/21 03:00 Laboratory Results Short CBC 09/04/21 Range/Units 07:07 WBC 6.41 (4.8-10.8) K/uL Hgb 12.2 L (14.0-18.0) g/dL Hct 35.9 L (42-52) % Plt Count 173 (130-400) K/uL BMP 09/04/21 07:07 Sodium 137 Potassium 3.7 Chloride 105 Carbon Dioxide 23 BUN 42 H Creatinine 2.26 H D Glucose 90 Calcium 8.6 Liver Function 09/04/21 Range/Units 07:07 Total Bilirubin 7.5 H (0.2-1.0) mg/dl AST 133 H (13-39) U/L ALT 142 H (7-52) U/L Alkaline Phosphatase 602 H (34-104) U/L Albumin 2.6 L (3.4-5.0) gm/dl Medications Administered Current Inpatient Medications Acetaminophen (Acetaminophen 325 Mg Tab) 650 mg PO Q4H PRN PRN Reason: Pain or Fever Stop: 09/25/21 19:15 Last Admin: 08/30/21 11:21 Dose: 650 mg Documented by: Allopurinol (Allopurinol 100 Mg Tab) 200 mg PO DAILY TIMBO Stop: 09/26/21 08:59 Last Admin: 09/04/21 10:08 Dose: 200 mg Documented by: Aspirin (Aspirin 81 Mg Ectab) 81 mg PO Q2D TIMBO Stop: 09/26/21 08:59 Last Admin: 08/27/21 10:33 Dose: 81 mg Documented by: Clotrimazole (Clotrimazole 10 Mg Kareem) 10 mg BUCCAL 5XDQ4H TIMBO Stop: 09/07/21 22:59 Last Admin: 09/04/21 12:29 Dose: Not Given Documented by: Cyanocobalamin (Cyanocobalamin (B-12) 500 Mcg Tablet) 1,000 mcg PO QAM TIMBO Stop: 09/26/21 08:59 Last Admin: 09/04/21 10:07 Dose: 1,000 mcg Documented by: Dextrose (Dextrose 50% 50 Ml Syringe) 25 - 50 ml IV UD PRN; Protocol PRN Reason: Hypoglycemia Protocol Stop: 09/25/21 19:15 Furosemide (Furosemide 40 Mg Tab) 40 mg PO DAILY TIMBO Stop: 09/26/21 08:59 Last Admin: 08/31/21 09:30 Dose: 40 mg Documented by: Gabapentin (Gabapentin 400 Mg Cap) 400 mg PO HS TIMBO Stop: 09/25/21 20:59 Last Admin: 08/31/21 20:09 Dose: 400 mg Documented by: Glucagon (Glucagon For Inj 1 Mg Vial) 1 mg SQ UD PRN; Protocol PRN Reason: Hypoglycemia Protocol Stop: 09/25/21 19:15 Glucose (Glucose 40% Gel 15 Gm Tube) 15 - 30 gm PO UD PRN; Protocol PRN Reason: Hypoglycemia Protocol Stop: 09/25/21 19:15 Glucose (Glucose 10 Tabs/Tube) 4 - 8 tabs PO UD PRN; Protocol PRN Reason: Hypoglycemia Protocol Stop: 09/25/21 19:15 Heparin Sodium (Porcine) (Heparin Sod 5,000 Unit/0.5 Ml Vial) 5,000 units SQ Q8 TIMBO Stop: 09/26/21 21:59 Last Admin: 08/27/21 21:43 Dose: 5,000 units Documented by: Hydromorphone HCl (Hydromorphone Inj 0.5 Mg/0.5 Ml Syr) 0.25 mg IV Q6H PRN PRN Reason: Pain Stop: 09/10/21 01:31 Promethazine HCl 12.5 mg/ (Sodium Chloride) 50.5 mls @ 202 mls/hr IV Q6H PRN PRN Reason: Nausea And Vomiting Stop: 09/27/21 00:34 Last Infusion: 08/29/21 11:13 Dose: Infused Documented by: Insulin Aspart (Insulin Aspart Per Unit) 0 units SC [facility] Stop: 09/26/21 16:29 Last Admin: 09/04/21 12:33 Dose: 6 units Documented by: Isosorbide Mononitrate (Isosorbide [place] Extended Rel 30 Mg Tabcr) 30 mg PO [facility] Stop: 09/26/21 08:59 Last Admin: 09/04/21 10:11 Dose: 30 mg Documented by: Levothyroxine Sodium (Levothyroxine Sodium 125 Mcg Tablet) 125 mcg PO DAILYBB [facility] Stop: 09/26/21 06:29 Last Admin: 09/04/21 05:45 Dose: 125 mcg Documented by: Metoprolol Succinate (Metoprolol Succ 50mg Ext Rel Tab) 100 mg PO [facility] Stop: 09/26/21 08:59 Last Admin: 09/04/21 10:07 Dose: 100 mg Documented by: Miscellaneous (Carbohydrates For Hypoglycemia ) 15 - 30 gm PO UD PRN PRN Reason: Hypoglycemia Protocol Stop: 09/25/21 19:15 Olanzapine (Olanzapine 10 Mg/2.1 Ml Sdv) 2.5 mg IM Q4H PRN PRN Reason: Anxiety/Agitation Stop: 09/30/21 20:37 Last Admin: 08/31/21 20:50 Dose: 2.5 mg Documented by: Pantoprazole Sodium (Pantoprazole 40 Mg Tab) 40 mg PO BID [facility] Stop: 10/03/21 20:59 Last Admin: 09/04/21 10:10 Dose: 40 mg Documented by: Tramadol HCl (Tramadol Hcl 50 Mg Tablet) 25 - 50 mg PO Q4H PRN PRN Reason: Pain Stop: 09/26/21 01:31 Last Admin: 08/27/21 02:56 Dose: 50 mg Documented by: (1) CAD (coronary artery disease) Associated angina: without angina Coronary Disease-Associated Artery/Lesion type: unspecified vessel or lesion type [place] vs. transplanted heart: [place] heart Qualified Code(s): I25.10 - Atherosclerotic heart disease of [place] coronary artery without angina pectoris
[2021-09-05] MEDS: OLANZapine 10 MG/2.1 ML SDV IM PRN (04:18)
[2021-09-05] MEDS: LEVOTHYROXINE SODIUM 125 MCG TABLET PO SCH (05:35)
[2021-09-05] MEDS: CLOTRIMAZOLE 10 MG TROCHE BUCCAL SCH ×5 (06:23→22:19)
[2021-09-05 07:16] LABS: Albumin Globulin Ratio 1.1 (0.9-2); Albumin Level 2.6 gm/dl (3.4-5.0); Bilirubin,Total 7.5 mg/dl (0.2-1.0); Creatinine Clr Calc Pharmacy 30.1 ml/min; Est GFR (African American) 33.5 ml/min; Est GFR (Non-African American) 28.9 ml/min; Globulin 2.3 gm/dl (2.5-4.0); Immunoglobulin A 206.4 mg/dl (70-400); Immunoglobulin G 547.1 mg/dl (635-1741); Immunoglobulin M 20.4 mg/dl (45-281); Potassium 3.7 mmol/L (3.5-5.1); Total Protein 4.9 gm/dl (6.0-8.3)
--- NOTE | 2021-09-05 07:33 | Ultrasound Report ---
ABDOMINAL ULTRASOUND, RIGHT UPPER QUADRANT HISTORY: R/O CBD dilatation,Stones. COMPARISON: Abdomen and pelvis CT 08/26/2021. FINDINGS: Pancreas: The pancreatic head and tail are obscured by overlying bowel gas. The remaining portions of the pancreas are within normal limits. Liver: Unremarkable. Gallbladder: Mild gallbladder wall thickening containing a few punctate stones and sludge. CBD: 5 mm. Right kidney: Right renal cysts are again noted. No hydronephrosis. IMPRESSION: 1. Mild gallbladder wall thickening. There are few punctate gallstones and sludge also identified. Cl inical correlation recommended to assess for an early acute cholecystitis. 2. Right renal cysts again noted. ACT 112: Negative or not required by law. Electronically signed by: Edmond Han M.D. 09/05/2021 7:32 AM
[2021-09-05] MEDS: PANTOprazole 40 MG TAB PO SCH ×2 (07:45→22:14)
[2021-09-05] MEDS: METOPROLOL SUCC 50MG EXT REL TAB PO SCH (07:45)
[2021-09-05] MEDS: ISOSORBIDE MONO EXTENDED REL 30 MG TABCR PO SCH (07:45)
[2021-09-05] MEDS: CYANOCOBALAMIN (B-12) 500 MCG TABLET PO SCH (07:45)
[2021-09-05] MEDS: allopurinoL 100 MG TAB PO SCH (07:45)
[2021-09-05] MEDS: INSULIN ASPART PER UNIT SC SCH ×4 (09:06→22:14)
[2021-09-05] MEDS ORDERED: predniSONE 20 MG TAB PO SCH (14:00)
--- NOTE | 2021-09-05 18:31 | Hospitalist Progress Note ---
Date of Service September 05, 2021 Assessment & Plan (1) Transaminitis: Plan: Noted during admission last month, at that time had a gallbladder ultrasound that was unremarkable Elevated LFT with AST 145and ALT 151 and Alk [address] ABD/pelvis today showing the gallbladder is distended and there are numerous small calcified gallstones. There is minimal pericholecystic infiltration. Correlate with clinical and laboratory findings for evidence of mild acute cholecystitis. Given gallstones noted on CT scan, ?? Choledocholithiasis RUQ US showed A few tiny gallstones/sludge. No gallbladder wall thickening. Has been on IV Zosyn - completed 6 days course Gastro on board EUS showed gallstones and sludge, CBD was not dilated, there was a questionable choledocholithiasis however Liver biopsy was obtained to r/o other etiologies of elevated LFTs. Continue monitor Liver enzymes ERCP done, sphincterotomy performed and the duct was swept and only minimal sludge removed, no stones seen. Liver biopsy-pathology showed portal and lobular inflammation there is hepatitis, sinusoidal dilation and focal fibrosis Liver function seems to be worse without any significant symptoms Repeat ultrasound showed Mild gallbladder wall thickening. There are few punctate gallstones and sludge also identified. 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 Will talk to Gastro that family does not want to start steroid for now Syncopal episode Likely secondary to postural hypotension No definite loss of consciousness Blood pressure noted to be very low on standing during the episode Has been ambulating without any symptoms stable Cholelithiasis status post ERCP No evidence of acute cholecystitis Check RUQ US-did not show any features of acute cholecystitis but may have a tiny gallstone without any dilatation of the common bile duct Started on IV Cipro and Flagyl-IV antibiotic has been changed to Zosyn Likely the cause for the abdominal discomfort and transaminitis Appreciate surgery and GI input Still complains to have right upper quadrant discomfort with nausea ERCP done, sphincterotomy performed and the duct was swept and only minimal sludge removed, no stones seen as per GI Gastro recommended surgery for cholecystectomy Surgery on board - Not a surgical candidate for laparoscopic cholecystectomy Tolerated full liquid diet, will advance to Low fiber Has been tolerating regular diet and was advised to take small amounts of food at one time and avoid any fatty foods Endoscopic ultrasound documented cholelithiasis No evidence of acute cholecystitis clinically (2) Generalized weakness: Plan: Suspected GI bleed Has been getting intravenous Protonix No evidence of hematemesis and melena Hemoglobin remains stable at 14.1 PT/OT eval -likely discharge depending on PT evaluation Has had syncopal episode secondary to vasovagal effect this morning He [facility] not [facility] Advised to drink more fluid but no IV fluid was given as the blood pressure was normal No more episodes of syncope and or postural hypotension Recommend inpatient rehab (3) Elevated troponin: Plan: Trend troponin Resting echo-unchanged from prior study and perhaps slight improvement with overall systolic function Orthostatic BPs, may need additional medication adjustment Patient's advanced age and multiple comorbid conditions likely contributing to his generalized weakness Cardiology consult-appreciate cardiology input and recommendation No evidence of ACS No cardiac symptoms and remains hemodynamically stable (4) Elevated d-dimer: Plan: Patient presenting from home with reports of generalized weakness, lightheadedness. Recently seen in cardiology clinic and found to be orthosta tic, Lasix and isosorbide doses reduced. In the ED, D-dimer 5800, troponin 100.2 --> 84.1. EKG demonstrates a paced rhythm. No chest pain, patient saturating well on room air. 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: Plan: Appears compensated, continue home dose of furosemide Continue ASA, beta-corky, nitrate (9) CKD (chronic kidney disease) stage 4, GFR 15-29 ml/min: Plan: Baseline creatinine mid 2s- low 3s Creatinine 2.5 today Follow renal functions Creatinine at 2.05 Stable (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: (12) Pacemaker: Plan: Device interrogation ordered (13) TIA (transient ischemic attack): Plan: History of Continue ASA, statin discontinued during recent admission due to transaminitis (14) DM type 2 (diabetes mellitus, type 2): Plan: Most recent Hgb A1c 9.2 on 07/2021 NovoLog per protocol while hospitalized (15) DVT prophylaxis: Plan: On IV heparin as above-discontinue IV heparin On subcu heparin Admission and Anticipated Discharge Date Admission Date: August 26, 2021 Subjective Patient was seen and evaluated for follow-up of elevated liver enzyme Lying in bed with no acute distress Patient said that he is not having any abdominal pain He tolerated his diet well I called over the phone and she would prefer me to speak to the daughter Discussed case with the daughter and provided with update Daughter would prefer not to start the prednisone because pt just completed a course of steroid and he did not tolerate it well Daughter said that his blood sugar was elevated and he became weak Denies any chest pain, palpitation, dizziness, shortness of breath. Review of Systems Review of Systems: All systems reviewed & are unremarkable except as noted in Subjective Physical Exam Physical Exam: General- No acute distress Head- atraumatic Eyes- PERRL, EOMI, ENT- oropharynx clear Neck- supple, no JVD Lungs- clear to auscultation Heart- regular rhythm; no murmur Abdomen- normal bowel sounds, soft, no tenderness Extremities- no calf tenderness Neuro- alert, oriented x 3; PERRL, EOMI; no facial palsy; no dysarthria Skin- warm & dry Results & Data Results & Data ([facility]) Vital Signs (Past 12 Hours) Vital Signs Temp Pulse Resp BP Pulse Ox 09/05/21 15:16 36.4 C L 60 18 154/73 H 96 09/05/21 11:03 36.5 C 65 18 152/74 H 96 09/05/21 07:39 36.4 C L 62 18 144/69 H 95 (1) CAD (coronary artery disease) Associated angina: without angina Coronary Disease-Associated Artery/Lesion type: unspecified vessel or lesion type [place] vs. transplanted heart: [place] Qualified Code(s): I25.10 - Atherosclerotic heart disease of [place] coronary artery without angina pectoris
[2021-09-06] MEDS: OLANZapine 10 MG/2.1 ML SDV IM PRN (04:13)
[2021-09-06] MEDS: CLOTRIMAZOLE 10 MG TROCHE BUCCAL SCH ×5 (06:30→23:03)
[2021-09-06] MEDS: METOPROLOL SUCC 50MG EXT REL TAB PO SCH (07:39)
[2021-09-06] MEDS: CYANOCOBALAMIN (B-12) 500 MCG TABLET PO SCH (07:40)
[2021-09-06] MEDS: allopurinoL 100 MG TAB PO SCH (07:40)
[2021-09-06] MEDS: ISOSORBIDE MONO EXTENDED REL 30 MG TABCR PO SCH (07:40)
[2021-09-06] MEDS: LEVOTHYROXINE SODIUM 125 MCG TABLET PO SCH (07:40)
[2021-09-06] MEDS: PANTOprazole 40 MG TAB PO SCH ×2 (07:41→20:00)
--- NOTE | 2021-09-06 08:12 | Gastroenterology Progress Note ---
Date of Service September 06, 2021 Assessment & Plan (1) Elevated LFTs: Plan: 86 year old male with history T2DM, CAD, ischemic cardiomyopathy EF 25%, atrial fibrillation not anticoagulated due to advanced age and fall risk, pacer/AICD in place, CKD stage IV, history of TIA s/p ERCP with sphincterotomy 08/31, liver bx with nonspecific findings perhaps congestive hepatopathy w/ autoimmune hepatitis started on PO prednisone for rising Tbili and AlkP Can continue diet as tolerated Can continue PO prednisone 40 mg daily as ordered Trend LFTs OP Hepatology follow up Thank you for allowing us to participate in the care of this patient. Please call with any acute changes, questions or concerns. Please see addendum below with additional recommendation from my supervising physician. Admission and Anticipated Discharge Date Admission Date: August 26, 2021 Supervising Physician Co-Signing Physician Notes I saw and evaluated the patient. He underwent a liver biopsy last week after negative ERCP. The liver biopsy seems to indicate evidence of congestive heart failure and possibly evidence of concomitant autoimmune liver disease. The patient was recently started on steroids and will need to reassess over the next few days or few weeks to see if he has clinical improvement. Should the patient have no improvement of his liver enzymes it then may be prudent to have him see the hepatology subspecialist for guidance. I suspect that the majority of his liver enzyme elevation is related to his cardiac disease Subjective Pt was seen and evaluated, chart reviewed. Feeling well from GI standpoint. Denies abd pain. No nausea, vomiting or GERD. Does not recall last BM, per documentation, yesterday. No report of black or bloody stools. HGB stable. Tbili and alkphos rising. Was started on PO prednisone yesterday. Liver bx also questions congestive hepatopathy. 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 The pattern of hepatitis is not specific. In the simplified autoimmune hepatitis (AIH) scoring system the histology would be considered to be compatible with AIH (score +1). The sinusoidal dilation present is consistent w ith outflow obstruction and this patient's history of heart failure. Review of Systems Review of Systems: All systems reviewed & are unremarkable except as noted in HPI & below Physical Exam Constitutional: WD/WN, vitals as above Respiratory: normal respiratory effort, lungs clear to auscultation Cardiovascular: Rate/Rhythm: regular rate and regular rhythm Gastrointestinal (Abdomen): normal bowel sounds, soft, nontender, no hepatosplenomegaly Skin: no rashes, warm and dry Results & Data ([facility]) Vital Signs (Past 12 Hours) Vital Signs Temp Pulse Pulse Resp BP BP Pulse Ox 09/06/21 07:32 36.5 C 60 20 135/68 94 09/06/21 03:28 36.5 C 62 18 143/73 H 99 09/05/21 23:13 36.4 C L 60 18 150/76 H 97 09/05/21 22:30 61 Laboratory Results 09/06/21 09/05/21 09/05/21 Range/Units 06:59 21:42 16:24 POC Glucose 102 H 148 H 125 H (70-99) mg/dl 09/05/21 Range/Units 11:33 POC Glucose 120 H (70-99) mg/dl
[2021-09-06] MEDS: INSULIN ASPART PER UNIT SC SCH ×4 (08:17→20:00)
[2021-09-06 13:46] LABS: Albumin Globulin Ratio 1.2 (0.9-2); Albumin Level 2.6 gm/dl (3.4-5.0); BUN Creatinine Ratio 16.7 (10-20); Bilirubin,Total 6.6 mg/dl (0.2-1.0); Creatinine Clr Calc Pharmacy 30.5 ml/min; Est GFR (African American) 37.7 ml/min; Est GFR (Non-African American) 32.5 ml/min; Globulin 2.2 gm/dl (2.5-4.0); Potassium 3.9 mmol/L (3.5-5.1); Total Protein 4.8 gm/dl (6.0-8.3)
[2021-09-06] MEDS: FUROSEMIDE 40 MG TAB PO SCH (14:45)
--- NOTE | 2021-09-06 17:40 | Hospitalist Progress Note ---
Date of Service September 06, 2021 Assessment & Plan (1) Transaminitis: Plan: Noted during admission last month, at that time had a gallbladder ultrasound that was unremarkable LFT trending down with AST 127, ALT 140 and Alk [address] ABD/pelvis today showing the gallbladder is distended and there are numerous small calcified gallstones. There is minimal pericholecystic infiltration. Correlate with clinical and laboratory findings for evidence of mild acute cholecystitis. Given gallstones noted on CT scan, ?? Choledocholithiasis RUQ US showed A few tiny gallstones/sludge. No gallbladder wall thickening. Has been on IV Zosyn - completed 6 days course Gastro on board EUS showed gallstones and sludge, CBD was not dilated, there was a questionable choledocholithiasis however Liver biopsy was obtained to r/o other etiologies of elevated LFTs. Continue monitor Liver enzymes ERCP done, sphincterotomy performed and the duct was swept and only minimal sludge removed, no stones seen. Liver biopsy-pathology showed portal and lobular inflammation there is hepatitis, sinusoidal dilation and focal fibrosis Liver function seems to be worse without any significant symptoms Repeat ultrasound showed Mild gallbladder wall thickening. There are few punctate gallstones and sludge also identified. Elevated IgG 547 and IgM 20.4, IgA normal Case discussed with GI that recommend to start on prednisone 40 mg daily for au toimmune hepatitis Received a call from the nurse that does not want the prednisone to start yet until discussed with provider and Daughter would prefer not to start the prednisone because pt just completed a course of steroid and he did not tolerate it well Daughter said that his blood sugar was elevated and he became weak after completing the steroid They would like to see if there is any other option. Gastro was informed about the family does not want to start steroid I readdressed about to start steroid again with and Son, they don't want to resume the steroid Will need outpatient follow up with hepatology Continue monitor CMP Syncopal episode Likely secondary to postural hypotension No definite loss of consciousness Blood pressure noted to be very low on standing during the episode Has been ambulating without any symptoms stable Cholelithiasis status post ERCP No evidence of acute cholecystitis Check RUQ US-did not show any features of acute cholecystitis but may have a tiny gallstone without any dilatation of the common bile duct Started on IV Cipro and Flagyl-IV antibiotic has been changed to Zosyn Likely the cause for the abdominal discomfort and transaminitis Appreciate surgery and GI input Still complains to have right upper quadrant discomfort with nausea ERCP done, sphincterotomy performed and the duct was swept and only minimal sludge removed, no stones seen as per GI Gastro recommended surgery for cholecystectomy Surgery on board - Not a surgical candidate for laparoscopic cholecystectomy Tolerated full liquid diet, will advance to Low fiber Has been tolerating regular diet and was advised to take small amounts of food at one time and avoid any fatty foods Endoscopic ultrasound documented cholelithiasis No evidence of acute cholecystitis clinically (2) Generalized weakness: Plan: Suspected GI bleed Has been getting intravenous Protonix No evidence of hematemesis and melena Hemoglobin remains stable at 14.1 PT/OT eval -likely discharge depending on PT evaluation Has had syncopal episode secondary to vasovagal effect this morning He will not be going [facility] today Advised to drink more fluid but no IV fluid was given as the blood pressure was normal No more episodes of syncope and or postural hypotension Recommend inpatient rehab (3) Elevated troponin: Plan: Trend troponin Resting echo-unchanged from prior study and perhaps slight improvement with overall systolic function Orthostatic BPs, may need additional medication adjustment Patient's advanced age and multiple comorbid conditions likely contributing to his generalized weakness Cardiology consult-appreciate cardiology input and recommendation No evidence of ACS No cardiac symptoms and remains hemodynamically stable (4) Elevated d-dimer: Plan: Patient presenting from home with reports of generalized weakness, lightheadedness. Recently seen in cardiology clinic and found to be orthostatic, Lasix and isosorbide doses reduced. In the ED, D-dimer 5800, troponin 100.2 --> 84.1. EKG demonstrates a paced rhythm. No chest pain, patient saturating well on room air. 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: Plan: Appears compensated, continue home dose of furosemide Continue ASA, beta-corky, nitrate (9) CKD (chronic kidney disease) stage 4, GFR 15-29 ml/min: Plan: Baseline creatinine mid 2s- low 3s Creatinine 2.5 today Follow renal functions Creatinine at 1.8 Stable (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: (12) Pacemaker: Plan: Device interrogation done (13) TIA (transient ischemic attack): Plan: History of Continue ASA, statin discontinued during recent admission due to transaminitis Will continue to hold statin for now (14) DM type 2 (diabetes mellitus, type 2): Plan: Most recent Hgb A1c 9.2 on 07/2021 NovoLog per protocol while hospitalized BS has been control might be due to diet in the hospital Will hold on Basaglar on discharge, but once BS starts to elevate will resume it and titrate it slowly Will resume PO diabetes med on discharge (15) DVT prophylaxis: Plan: On IV heparin as above-discontinue IV heparin On subcu heparin during the hospital course Admission and Anticipated Discharge Date Admission Date: August 26, 2021 Subjective Patient was seen and evaluated for follow-up of elevated liver enzyme Lying in bed with no acute distress with son and at bedside Pt was agitated last night and received Zyprexa Nurse said that pt walked in the hallway with therapy Updated provided with Son and .They continue refusing to start the prednisone Family concerns about pt to become delirious tonight. If that happens they would like us to notify the daughter since she is working tonight at the OB floor to come to calm her dad instead giving Zyprexa Denies any chest pain, palpitation, dizziness and SOB Review of Systems Review of Systems: All systems reviewed & are unremarkable except as noted in Subjective Physical Exam Physical Exam: General- No acute distress Head- atraumatic Eyes- PERRL, EOMI, ENT- oropharynx clear Neck- supple, no JVD Lungs- clear to auscultation Heart- regular rhythm; no murmur Abdomen- normal bowel sounds, soft, no tenderness Extremities- no calf tenderness Neuro- alert, oriented x 3; PERRL, EOMI; no facial palsy; no dysarthria Skin- warm & dry Results & Data Results & Data ([facility]) Vital Signs (Past 12 Hours) Vital Signs Temp Pulse Resp BP BP Pulse Ox 09/06/21 15:39 36.3 C L 73 20 147/74 H 96 09/06/21 11:31 36.4 C L 59 L 16 132/68 96 09/06/21 07:32 36.5 C 60 20 135/68 94 (1) CAD (coronary artery disease) Associated angina: without angina Coronary Disease-Associated Artery/Lesion type: unspecified vessel or lesion type [place] vs. transplanted heart: [place] heart Qualified Code(s): I25.10 - Atherosclerotic heart disease of [place] coronary artery without angina pectoris
[2021-09-07] MEDS: LEVOTHYROXINE SODIUM 125 MCG TABLET PO SCH (06:07)
[2021-09-07 06:57] LABS: Albumin Globulin Ratio 1.2 (0.9-2); Albumin Level 2.6 gm/dl (3.4-5.0); BUN Creatinine Ratio 16.3 (10-20); Bilirubin,Total 6.9 mg/dl (0.2-1.0); Calcium 9.2 mg/dl (8.5-10.1); Creatinine Clr Calc Pharmacy 29.9 ml/min; Est GFR (African American) 36.7 ml/min; Est GFR (Non-African American) 31.7 ml/min; Globulin 2.2 gm/dl (2.5-4.0); Potassium 4.1 mmol/L (3.5-5.1); Total Protein 4.8 gm/dl (6.0-8.3)
[2021-09-07] MEDS: INSULIN ASPART PER UNIT SC SCH ×2 (08:02→11:54)
[2021-09-07] MEDS: METOPROLOL SUCC 50MG EXT REL TAB PO SCH (08:03)
[2021-09-07] MEDS: PANTOprazole 40 MG TAB PO SCH (08:03)
[2021-09-07] MEDS: CYANOCOBALAMIN (B-12) 500 MCG TABLET PO SCH (08:03)
[2021-09-07] MEDS: FUROSEMIDE 40 MG TAB PO SCH (08:03)
[2021-09-07] MEDS: allopurinoL 100 MG TAB PO SCH (08:03)
[2021-09-07] MEDS: ISOSORBIDE MONO EXTENDED REL 30 MG TABCR PO SCH (08:03)
[2021-09-07] MEDS: CLOTRIMAZOLE 10 MG TROCHE BUCCAL SCH ×2 (08:04→11:53)
--- NOTE | 2021-09-07 08:58 | Gastroenterology Progress Note ---
Date of Service September 07, 2021 Assessment & Plan (1) Elevated LFTs: Plan: 86 year old male with history T2DM, CAD, ischemic cardiomyopathy EF 25%, atrial fibrillation not anticoagulated due to advanced age and fall risk, pacer/AICD in place, CKD stage IV, history of TIA s/p ERCP with sphincterotomy 08/31, liver bx with nonspecific findings perhaps congestive hepatopathy w/ autoimmune hepatitis started on PO prednisone for rising Tbili and AlkP Can continue diet as tolerated He defers PO prednisone or budesonide Trend LFTs OP Hepatology follow up to discuss other therapy for autoimmune hepatitis Will sign off. Thank you for allowing us to participate in the care of this patient. Please call with any acute changes, questions or concerns. Please see addendum below with additional recommendation from my supervising physician. Admission and Anticipated Discharge Date Admission Date: August 26, 2021 Supervising Physician Co-Signing Physician Notes I saw and evaluated the patient. 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 It is also quite possible that his liver enzyme elevation is related to congestive hepatopathy given the appearance on his biopsies. Given the complexity of his case I think the patient would benefit from a subspecialty hepatology evaluation at [facility]. Please call with any questions or concerns, I would recommend referral to [place] [facility] [place] Subjective Pt was seen and evaluated, chart reviewed. Notes he is not agreeable to PO prednisone Discussed budesonide in place of prednisone, he deferred this as well Denies any GI concerns this AM. Review of Systems Review of Systems: All systems reviewed & are unremarkable except as noted in HPI & below Physical Exam Constitutional: WD/WN, vitals as above Respiratory: normal respiratory effort, lungs clear to auscultation Cardiovascular: Rate/Rhythm: regular rate and regular rhythm Gastrointestinal (Abdomen): normal bowel sounds, soft, nontender, no hepatosplenomegaly Skin: no rashes, warm and dry Results & Data ([facility]) Vital Signs (Past 12 Hours) Vital Signs Temp Pulse Resp BP BP Pulse Ox 09/07/21 08:15 36.9 C 64 16 159/74 H 95 09/07/21 03:01 36.8 C 63 18 142/76 H 93 09/06/21 23:27 36.8 C 76 18 150/70 H 97 Laboratory Results 09/07/21 09/07/21 09/06/21 Range/Units 07:24 06:14 19:40 Sodium 141 (136-145) mmol/L Potassium 4.1 (3.5-5.1) mmol/L Chloride 110 H (98-107) mmol/L Carbon Dioxide 25 (21-32) mmol/L Anion Gap 6 (3-11) BUN 31 H (6-23) mg/dl Creatinine 1.90 H (0.6-1.4) mg/dl Est Cr Clr Drug Dosing 29.9 ml/min Est GFR ( Amer) 36.7 ml/min Est GFR (Non-Af Amer) 31.7 ml/min BUN/Creatinine Ratio 16.3 (10-20) Glucose 95 (70-99(Fasting)) mg/dl POC Glucose 97 113 H (70-99) mg/dl Calcium 9.2 (8.5-10.1) mg/dl Total Bilirubin 6.9 H (0.2-1.0) mg/dl AST 122 H (13-39) U/L ALT 136 H (7-52) U/L Alkaline Phosphatase 684 H (34-104) U/L Total Protein 4.8 L (6.0-8.3) gm/dl Albumin 2.6 L (3.4-5.0) gm/dl Globulin 2.2 L (2.5-4.0) gm/dl Albumin/Globulin Ratio 1.2 (0.9-2) 09/06/21 09/06/21 09/06/21 Range/Units 16:14 12:53 11:11 Sodium 141 (136-145) mmol/L Potassium 3.9 (3.5-5.1) mmol/L Chloride 110 H (98-107) mmol/L Carbon Dioxide 26 (21-32) mmol/L Anion Gap 5 (3-11) BUN 31 H (6-23) mg/dl Creatinine 1.86 H (0.6-1.4) mg/dl Est Cr Clr Drug Dosing 30.5 ml/min Est GFR ( Amer) 37.7 ml/min Est GFR (Non-Af Amer) 32.5 ml/min BUN/Creatinine Ratio 16.7 (10-20) Glucose 100 H (70-99(Fasting)) mg/dl POC Glucose 155 H 105 H (70-99) mg/dl Calcium 9.0 (8.5-10.1) mg/dl Total Bilirubin 6.6 H (0.2-1.0) mg/dl AST 127 H (13-39) U/L ALT 140 H (7-52) U/L Alkaline Phosphatase 754 H (34-104) U/L Total Protein 4.8 L (6.0-8.3) gm/dl Albumin 2.6 L (3.4-5.0) gm/dl Globulin 2.2 L (2.5-4.0) gm/dl Albumin/Globulin Ratio 1.2 (0.9-2)
--- NOTE | 2021-09-07 11:24 | Discharge Summary ---
Date of Service September 07, 2021 Admission HPI Per Admitting Provider 86-year-old male with PMH DM type II, CAD, ischemic cardiomyopathy EF 25%, history of paroxysmal V. tach, atrial fibrillation not anticoagulated due to advanced age and fall risk, pacer/AICD in place, CKD stage IV, history of TIA, and other problems listed below who presents the ED for evaluation of generalized weakness. Patient admitted to [facility] 1 month ago for near syncope, fall. Patient has been going to PT 3 times per week. He was evaluated in the cardiology office recently for complaints of lightheadedness and generalized weakness. Was found to be orthostatic in the office and Lasix was reduced to 40 mg daily and isosorbide was reduced to 30 mg daily. Today, patient felt very weak and had difficulty getting out of bed. He then presented to the ED for further evaluation. 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 Patient was being treated for PJP with Atovaquone and prednisone. He has since completed courses of both medications. Patient developed left knee pain a couple of weeks ago. Was seen by PCP and had a Doppler that was negative for DVT and x-ray that was unremarkable. Patient reports left knee pain has been progressively getting worse. No known injury. Patient reports chronic exertional shortness of breath which is unchanged from baseline. No chest pain. Has been having intermittent episodes of lightheadedness with standing, no syncopal event. Denies any other recent illnesses, fevers, chills. No abdominal pain, nausea, vomiting, diarrhea. Patient notes a 25 pound weight loss since May. Denies urinary symptoms. In the ED, patient is hemodynamically stable. Labs show elevated D- dimer 5800, troponin 100.2 --> 84.1. Transaminitis noted. EKG demonstrates a paced rhythm. CXR, head CT, LLE venous Doppler all remarkable for acute findings. Patient was empirically started on IV heparin. Admission Exam Per Admitting Provider Constitutional: WD/WN, vitals as above Eyes: PERRL, conjunctivae normal, anicteric sclerae ENMT: external ear and nose normal, oropharynx normal Respiratory: normal respiratory effort, lungs clear to auscultation Cardiovascular: Rate/Rhythm: regular rate and regular rhythm Vessels: normal peripheral pulses Extremities: no edema Gastrointestinal (Abdomen): normal bowel sounds, soft, nontender, no hepatosplenomegaly Musculoskeletal: no cyanosis or clubbing, extremities motor strength 5/5 Skin: no rashes, warm and dry Neurologic: PERRL, EOMI, accommodation nl, no face palsy, no dysarthria Psychiatric: A+Ox3, euthymic affect Principal Diagnosis Transaminitis: Syncopal episode Cholelithiasis status post ERCP Generalized weakness: Elevated troponin: Elevated d-dimer: Left knee pain: CAD (coronary artery disease): Ischemic cardiomyopathy: 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: CKD (chronic kidney disease) stage 4, GFR 15-29 ml/min: Tachy-pablo syndrome: ICD (implantable cardioverter-defibrillator) in place: Pacemaker TIA (transient ischemic attack): DM type 2 (diabetes mellitus, type 2): Discharge Exam General- No acute distress Head- atraumatic Eyes- PERRL, EOMI, ENT- oropharynx clear Neck- supple, no JVD Lungs- clear to auscultation Heart- regular rhythm; no murmur Abdomen- normal bowel sounds, soft, no tenderness Extremities- no calf tenderness Neuro- alert, oriented x 3; PERRL, EOMI; no facial palsy; no dysarthria Skin- warm & dry Discharge Data Allergies Allergy/AdvReac Type Severity Reaction Status Date / Time procaine [From Novocain] Allergy Intermediate Fever Verified 08/31/21 14:12 tamsulosin [From Flomax] AdvReac Severe Fainting Verified 08/26/21 15:12 amlodipine AdvReac Mild INSOMNIA Verified 08/26/21 15:12 Fibrate Anti-Lipidemics AdvReac Unknown NECK PAIN Verified 08/31/21 14:12 Consultations 08/26/21 15:06 ED Decision to Admit Stat 08/26/21 19:16 Consult Cardiology Routine Consult Gastroenterology Routine Consult General Surgery Routine Consult Orthopedic Surgery Routine Procedures Performed Operation Date: 08/31/21 13:45 Actual Procedures p Endoscopic Retrograde Cholangiopancreato - Lucina Arango MD Ordered Studies 08/26/21 12:30 CT head/brain wo con Stat US venous doppler LE LT Stat 08/26/21 16:10 CT abd pelvis wo con Urgent 08/27/21 US liver Routine 08/31/21 FL ERCP biliary ductal Routine 08/31/21 12:00 US upper EUS PACS images Routine 09/05/21 14:28 US abdomen limited Urgent ABDOMINAL ULTRASOUND, RIGHT UPPER QUADRANT HISTORY: R/O CBD dilatation,Stones. COMPARISON: Abdomen and pelvis CT 08/26/2021. FINDINGS: Pancreas: The pancreatic head and tail are obscured by overlying bowel gas. The remaining portions of the pancreas are within normal limits. Liver: Unremarkable. Gallbladder: Mild gallbladder wall thickening containing a few punctate stones and sludge. CBD: 5 mm. Right kidney: Right renal cysts are again noted. No hydronephrosis. IMPRESSION: 1. Mild gallbladder wall thickening. There are few punctate gallstones and sludge also identified. Clinical correlation recommended to assess for an early acute cholecystitis. 2. Right renal cysts again noted. ACT 112: Negative or not required by law. Electronically signed by: Edmond Han M.D. 09/05/2021 7:32 AM Dictated:09/05/21728 Transcribed: 09/05/21728 DICTATED BY:Lucina Arango MD Patient Name: Robi Haider Procedure Date: 08/31/2021 2:47 PM Date of : 1935 Admit Type: Inpatient Age: 86 Gender: Male Attending MD: Lucina Arango MD Procedure: Upper EUS Providers: Lucina Arango MD Referring MD: NATHANAEL DIAS Indications: Elevated liver enzymes, Suspected choledocholithiasis Medicines: General Anesthesia Complications: No immediate complications. Estimated Blood Loss: Estimated blood loss: none. Procedure: Pre-Anesthesia Assessment: - Prior to the procedure, a History and Physical was performed, and patient medications, allergies and sensitivities were reviewed. The patient's tolerance of previous anesthesia was reviewed. - The risks and benefits of the procedure and the sedation options and risks were discussed with the patient. All questions were answered and informed consent was obtained. - Patient identification and proposed procedure were verified prior to the procedure by the physician and the nurse. The procedure was verified in the procedure room. - Pre-procedure physical examination revealed no contraindications to sedation. After obtaining informed consent, the endoscope was passed under direct vision. Throughout the procedure, the patient's blood pressure, pulse, and oxygen saturations were monitored continuously. The scope was introduced through the mouth, and advanced to the second part of duodenum. The upper EUS was accomplished without difficulty. The patient tolerated the procedure well. Findings: ENDOSONOGRAPHIC FINDING: : There was no sign of significant endosonographic abnormality in the ampulla. No masses were identified. ?? stone was visualized endosonographically in the common bile duct. It was hyperechoic and characterized by shadowing. The duct measured 5 mm in maximum diameter. Multiple stones were visualized endosonographically in the gallbladder. The stones measured up to 1 mm in greatest dimension. They were hyperechoic and characterized by shadowing. There was no sign of significant endosonographic abnormality in the left lobe of the liver. Homogeneous parenchyma was identified. Fine needle biopsy was performed. Color Doppler imaging was utilized prior to needle puncture to confirm a lack of significant vascular structures within the needle path. One pass was made with the 19 gauge ultrasound core biopsy needle using a transgastric approach. A visible core of tissue was obtained. Verification of patient identification for the specimen was done by the physician and nurse using the patient's name and date. Pancreatic parenchymal abnormalities were noted in the entire pancreas. These consisted of atrophy and lobularity. There was no sign of significant endosonographic abnormality in the visualized portion of the left adrenal gland. There was no sign of significant endosonographic abnormality involving the celiac trunk. Impression: - There was no sign of significant pathology in the ampulla. - ?? small stone was visualized endosonographically in the common bile duct however the duct was non dilated. - Multiple stones were visualized endosonographically in the gallbladder. - There was no evidence of significant pathology in the left lobe of the liver. Fine needle biopsy performed. - Pancreatic parenchymal abnormalities consisting of atrophy and lobularity were noted in the entire pancreas. - Endosonographic images of the left adrenal gland were unremarkable. - The celiac trunk was endosonographically normal. Recommendation: - Await path results. - Perform an ERCP today. Lucina Arango MD 09/01/2021 8:12:57 AM This report has been signed electronically. Note Initiated On: 08/31/2021 2:47 PM Number of Addenda: 0 I attest to the content of the Intraoperative Record and orders documented therein, exceptions below Created/Dictated:08/31/21 1447 Transcribed: 09/01/21 0812 DICTATED BY:Lucina Arango MD Patient Name: Robi Haider Procedure Date: 08/31/2021 2:48 PM Date of : 1935 Admit Type: Inpatient Age: 86 Gender: Male Attending MD: Lucina Arango MD Procedure: ERCP Providers: Lucina Arango MD Referring MD: NATHANAEL DIAS Indications: Suspected bile duct stone(s), Elevated liver enzymes Medicines: General Anesthesia Complications: No immediate complications. Estimated Blood Loss: Estimated blood loss: none. Procedure: Pre-Anesthesia Assessment: - Prior to the procedure, a History and Physical was performed, and patient medications, allergies and sensitivities were reviewed. The patient's tolerance of previous anesthesia was reviewed. - The risks and benefits of the procedure and the sedation options and risks were discussed with the patient. All questions were answered and informed consent was obtained. - Patient identification and proposed procedure were verified prior to the procedure by the physician and the nurse. The procedure was verified in the procedure room. - Pre-procedure physical examination revealed no contraindications to sedation. After obtaining informed consent, the scope was passed under direct vision. Throughout the procedure, the patient's blood pressure, pulse, and oxygen saturations were monitored continuously. The Duodenoscope was introduced through the mouth, and advanced to the duodenum and used to inject contrast into the bile duct. The ERCP was accomplished without difficulty. The patient tolerated the procedure well. Findings: The sales and service specialist film was normal. The esophagus was successfully intubated under direct vision. The scope was advanced to a normal major papilla in the descending duodenum without detailed examination of the pharynx, larynx and associated structures, and upper GI tract. The upper GI tract was grossly normal. A biliary pre-cut sphincterotomy was made with a monofilament needle knife using a freehand technique using ERBE electrocautery. There was no post-sphincterotomy bleeding. A 0.025 inch x 270 cm angled Visiglide wire was passed into the biliary tree. The Fusion OMNI sphincterotome was passed over the guidewire and the bile duct was then deeply cannulated. Contrast was injected. I personally interpreted the bile duct images. Ductal flow of contrast was adequate. Image quality was adequate. Contrast extended to the main bile duct. Opacification of the entire biliary tree except for the gallbladder was successful. The maximum diameter of the ducts was 6 mm. The biliary sphincterotomy was extended with a monofilament traction (standard) sphincterotome using ERBE electrocautery. There was no post-sphincterotomy bleeding. The biliary tree was swept with an 11.5 mm balloon starting at the bifurcation. Sludge was swept from the duct. Impression: - A biliary sphincterotomy was performed. - The biliary tree was swept and sludge was found. Recommendation: - Return patient to [facility] for [facility] care. - Follow up with Surgery for cholecystectomy. Lucina Arango MD 09/01/2021 8:09:26 AM This report has been signed electronically. 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 Cannulation of the common bile duct with balloon sweep. No biliary filling defects or strictures identified. Contrast is also noted within the duodenum. IMPRESSION: Fluoroscopic assistance as above. ACT 112: Negative or not required by law. The above report was generated using voice recognition software. It may contain grammatical, syntax or spelling errors. Electronically signed by: Carlos Narvaez M.D. 08/31/2021 5:28 PM Dictated:08/31/21 1727 Transcribed: 08/31/21 1727 NM pul perfusion CLINICAL HISTORY: elevated d dimer. COMPARISON STUDY: Chest 08/26/2021. TECHNIQUE: Immediately following the intravenous administration of 5 mCi of technetium 99 M MAA for the perfusion scan, anterior, oblique, lateral, and posterior views of the chest were obtained. Ventilation scan was not performed due to coronavirus protocols. FINDINGS: Cardiac silhouette is mildly enlarged. No perfusion defects identified within the lungs. Bilateral hilar prominence is also noted. IMPRESSION: Essentially normal perfusion of the lungs. Therefore, this favors a very low probability scan. ACT 112: Negative or not required by law. Electronically signed by: Edmond Han M.D. 08/27/2021 9:52 AM Dictated:08/27/2145 Transcribed: 08/27/21944 XR knee LT 3V HISTORY: 86 years-old Male left knee pain acute left-sided knee pain COMPARISON: None. TECHNIQUE: 3 views of the left knee FINDINGS: Surgical clips of the medial calf. Arterial calcifications. There is minimal tricompartmental osteoarthritis of the knee with trace joint effusion. No acute fracture, dislocation, or osteochondral defect. IMPRESSION: No acute fracture. ACT 112: Negative or not required by law. The above report was generated using voice recognition software. It may contain grammatical, syntax or spelling errors. Electronically signed by: Carlos Narvaez M.D. 08/27/2021 3:17 PM Dictated:08/27/211514 Transcribed: 08/27/211514 ABDOMINAL ULTRASOUND, RIGHT UPPER QUADRANT HISTORY: Abnormal gallbladder on CT. Elevated LFTs. ? choledocho, ? cholecystitis. COMPARISON: Abdomen and pelvis CT 08/26/2021. FINDINGS: Pancreas: The pancreas demonstrates a normal echotexture. Liver: Unremarkable. Gallbladder: No gallbladder wall thickening. There are few tiny stones/sludge.. CBD: 6 mm. Right kidney: No hydronephrosis. A few right renal cysts are noted. IMPRESSION: 1. A few tiny gallstones/sludge. No gallbladder wall thickening. 2. Normal caliber common bile duct. 3. Right renal cysts. ACT 112: Negative or not required by law. Electronically signed by: Edmond Han M.D. 08/27/2021 9:24 AM Dictated:08/27/21921 Transcribed: 08/27/21921 CT SCAN OF THE ABDOMEN AND PELVIS WITHOUT IV CONTRAST CLINICAL HISTORY: Weight loss. Elevated hepatic transaminases. COMPARISON STUDY: Abdominal CT dated 12/08/2017. TECHNIQUE: CT scan of the abdomen and pelvis is performed from the lung bases to the proximal femora. Images are reviewed in the axial, sagittal, and coronal planes. IV contrast was not administered for this examination. A dose lowering technique was utilized adhering to the principles of ALARA. CT DOSE: 809.47 mGycm FINDINGS: Lung bases: The patient is status post midline sternotomy. The heart is enlarged and and without pericardial effusion. The coronary arteries are densely calcified. Pacemaker leads are noted. There is a small left pleural effusion with dependent atelectasis. Scarring/atelectasis is seen at both lung bases. There is no airspace consolidation typical for pneumonia. Liver: The unenhanced liver is normal in size, contour, and attenuation. There is no intrahepatic biliary ductal dilatation. Gallbladder: The gallbladder is distended and there are numerous tiny calcified gallstones. There is minimal pericholecystic infiltration. Spleen: Normal in size and attenuation. Pancreas: The unenhanced pancreas is mildly atrophic and grossly unremarkable. Adrenal glands: Unremarkable. Kidneys: The unenhanced kidneys demonstrate cortical atrophy and are without hydronephrosis. There is a 5 nonobstructing calculus in the right kidney. There are least 5 small nonobstructing left renal calculi which measure up to 4 mm. No ureteral stone is seen. Bilateral renal cysts measure up to 3.3 cm. Additional subcentimeter cortical hypodensities also likely represent cysts but are too small for definitive characterization. Abdominal vasculature: The abdominal aorta is normal in course and caliber noting moderate to advanced atherosclerotic calcification. Bowel: There is mild colonic diverticulosis without CT evidence of acute diverticulitis. No bowel obstruction is identified. Mild fecal retention is seen throughout the colon. An intraluminal metallic foreign body is noted within the descending colon on axial image #181. The appendix is well-visualized and norm al. Peritoneum: There is no intraperitoneal free air or abdominal ascites. There is a small fat-containing umbilical hernia. Lymphadenopathy: None. Pelvic viscera: The bladder is distended but otherwise grossly unremarkable the prostate gland is diminutive and heterogeneous. The seminal vesicles are normal as imaged. There are bilateral fat-containing groin hernias. Skeletal structures: The skeletal structures are osteopenic. There is moderate lumbosacral spondylosis. Degenerative change is also seen in the hips and sacroiliac joints. No lytic or blastic lesions are seen. IMPRESSION: 1. The gallbladder is distended and there are numerous small calcified gallstones. There is minimal pericholecystic infiltration. Correlate with clinical and laboratory findings for evidence of mild acute cholecystitis. If clinically warranted this could be further evaluated with a right upper quadrant ultrasound or possibly nuclear hepatobiliary scan. 2. Cardiomegaly and cardiac pacemaker. 3. Small left pleural effusion. 4. Bilateral nephrolithiasis. 5. Bladder distention. 6. Additional findings as above. ACT 112: Negative or not required by law. Electronically signed by: Dominik Bassett M.D. 08/26/2021 4:58 PM Dictated:08/26/21 1648 Transcribed: 08/26/211647 LEFT LOWER EXTREMITY VENOUS DOPPLER HISTORY: Left leg pain. COMPARISON STUDY: None. FINDINGS: There is normal compressibility, flow, and augmentation within the left lower extremity deep venous system. IMPRESSION: No DVT within the left lower extremity. ACT 112: Negative or not required by law. Electronically signed by: Edmond Han M.D. 08/26/2021 2:58 PM Dictated:08/26/21 1458 Transcribed: 08/26/[address] head/brain wo con CLINICAL HISTORY: 86 years-old Male with weakness. Acute weakness TECHNIQUE: Multiple axial CT images of the head were obtained without contrast. A dose lowering technique was utilized adhering to the principles of ALARA. CT DOSE: 691.05 mGy.cm COMPARISON: Head CT 07/23/2021 FINDINGS: No acute intracranial hemorrhage, midline shift, intracranial mass, hydrocephalus, territorial ischemia or abnormal extra-axial collection. Age- related involutional changes. White matter hypodensities redemonstrated suggestive of chronic microvascular ischemic disease. Cerebral vascular calcifications. The calvarium is intact. Prior bilateral lens replacement. The paranasal sinuses, mastoid air cells, and middle ear cavities are clear. IMPRESSION: No acute intracranial abnormality. ACT 112: Negative or not required by law. The above report was generated using voice recognition software. It may contain grammatical, syntax or spelling errors. Electronically signed by: Carlos Narvaez M.D. 08/26/2021 1:29 PM Dictated:08/26/21 1323 Transcribed: 08/26/21 1327 SINGLE VIEW CHEST CLINICAL HISTORY: Dyspnea. FINDINGS: An AP, portable, upright chest radiograph is compared to study dated 07/22/2021. The patient is status post midline sternotomy. A 3-lead cardiac AICD is unchanged in position. The heart is enlarged noting atherosclerotic calcification of the thoracic aorta. The pulmonary vasculature is noncongested. There is mild elevation of the left hemidiaphragm with chronic blunting of the left costophrenic sulcus. Scarring/atelectasis is noted at both lung bases. No large pleural effusion is seen. No pneumothorax is seen. The skeletal structures are osteopenic. The bony thorax is grossly intact. IMPRESSION: 1. Cardiomegaly and AICD. There is no radiographic evidence of congestive failure. 2. No airspace consolidation or pleural effusion is identified ACT 112: Negative or not required by law. Electronically signed by: Dominik Bassett M.D. 08/26/2021 1:10 PM Dictated:08/26/21 1308 Transcribed: 08/26/21 1308 Hospital Course (1) Transaminitis: Noted during admission last month, at that time had a gallbladder ultra sound that was unremarkable LFT trending down with AST 127, ALT 140 and Alk [address] ABD/pelvis today showing the gallbladder is distended and there are numerous small calcified gallstones. There is minimal pericholecystic infiltration. Correlate with clinical and laboratory findings for evidence of mild acute cholecystitis. Given gallstones noted on CT scan, ?? Choledocholithiasis RUQ US showed A few tiny gallstones/sludge. No gallbladder wall thickening. Has been on IV Zosyn - completed 6 days course Gastro on board EUS showed gallstones and sludge, CBD was not dilated, there was a questionable choledocholithiasis however Liver biopsy was obtained to r/o other etiologies of elevated LFTs. Continue monitor Liver enzymes ERCP done, sphincterotomy performed and the duct was swept and only minimal sludge removed, no stones seen. Liver biopsy-pathology showed portal and lobular inflammation there is hepatitis, sinusoidal dilation and focal fibrosis Liver function seems to be worse without any significant symptoms Repeat ultrasound showed Mild gallbladder wall thickening. There are few punctate gallstones and sludge also identified. 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 Gastro was informed about the family does not want to start steroid I readdressed about to start steroid again with and Son, they don't want to resume the steroid Will need outpatient follow up with hepatology Continue monitor CMP Syncopal episode Likely secondary to postural hypotension No definite loss of consciousness Blood pressure noted to be very low on standing during the episode Has been ambulating without any symptoms stable Cholelithiasis status post ERCP No evidence of acute cholecystitis Check RUQ US-did not show any features of acute cholecystitis but may have a tiny gallstone without any dilatation of the common bile duct Started on IV Cipro and Flagyl-IV antibiotic has been changed to Zosyn Likely the cause for the abdominal discomfort and transaminitis Appreciate surgery and GI input Still complains to have right upper quadrant discomfort with nausea ERCP done, sphincterotomy performed and the duct was swept and only minimal sludge removed, no stones seen as per GI Gastro recommended surgery for cholecystectomy Surgery on board - Not a surgical candidate for laparoscopic cholecystectomy Tolerated full liquid diet, will advance to Low fiber Has been tolerating regular diet and was advised to take small amounts of food at one time and avoid any fatty foods Endoscopic ultrasound documented cholelithiasis No evidence of acute cholecystitis clinically (2) Generalized weakness: Suspected GI bleed Has been getting intravenous Protonix No evidence of hematemesis and melena Hemoglobin remains stable at 14.1 PT/OT eval -likely discharge depending on PT evaluation Has had syncopal episode secondary to vasovagal effect this morning He will not be going to [facility] today Advised to drink more fluid but no IV fluid was given as the blood pressure was normal No more episodes of syncope and or postural hypotension Recommend inpatient rehab (3) Elevated troponin: Trend troponin Resting echo-unchanged from prior study and perhaps slight improvement with overall systolic function Orthostatic BPs, may need additional medication adjustment Patient's advanced age and multiple comorbid conditions likely contributing to his generalized weakness Cardiology consult-appreciate cardiology input and recommendation No evidence of ACS No cardiac symptoms and remains hemodynamically stable (4) Elevated d-dimer: Patient presenting from home with reports of generalized weakness, lightheadedness. Recently seen in cardiology clinic and found to be orthosta tic, Lasix and isosorbide doses reduced. In the ED, D-dimer 5800, troponin 100.2 --> 84.1. EKG demonstrates a paced rhythm. No chest pain, patient saturating well on room air. 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: Appears compensated, continue home dose of furosemide Continue ASA, beta-corky, nitrate (9) CKD (chronic kidney disease) stage 4, GFR 15-29 ml/min: Baseline creatinine mid 2s- low 3s Creatinine 2.5 today Follow renal functions Creatinine at 1.8 Stable (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: (12) Pacemaker: Device interrogation done (13) TIA (transient ischemic attack): History of Continue ASA, statin discontinued during recent admission due to transaminitis Will continue to hold statin for now (14) DM type 2 (diabetes mellitus, type 2): Most recent Hgb A1c 9.2 on 07/2021 NovoLog per protocol while hospitalized BS has been control might be due to diet in the hospital Will hold on Basaglar on discharge, but once BS starts to elevate will resume it and titrate it slowly Will resume PO diabetes med on discharge (15) DVT prophylaxis: On IV heparin as above-discontinue IV heparin On subcu heparin during the hospital course Total Time Total Time Spent Total Time Spent (In Minutes): 35 minutes Discharge Plan Discharge Items Patient Disposition: Transfer Inpatient Rehab Fac Reason For Visit: WEAKNESS Discharge Diagnosis: Transaminitis: Syncopal episode Cholelithiasis status post ERCP Generalized weakness: Elevated troponin: Elevated d-dimer: Left knee pain: CAD (coronary artery disease): Ischemic cardiomyopathy: 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: CKD (chronic kidney disease) stage 4, GFR 15-29 ml/min: Tachy-pablo syndrome: ICD (implantable cardioverter-defibrillator) in place: Pacemaker TIA (transient ischemic attack): DM type 2 (diabetes mellitus, type 2): Activity: Resume your previous activity Non-emergency contact: Primary Care Provider and Appeals And Generalist Clerk Call non-emergency contact if: you have any medication questions Follow-up/Referrals: Blanca Orellana MD [Primary Care Provider] - Diet: Carb Consistent or DM2 Addtl Attending Provider Instructions: Follow up with your primary care provider once discharge from rehab Follow up outpatient with gastroenterology Your provider will place a referral for hepatology evaluation for the management of the Autoimmune hepatitis Check LFT in 1 week to monitor your liver enzymes Continue physical and occupational therapy Since your blood sugar has been control during the hospital course without basal insulin, I will advise to continue to hold the basaglar for now Continue monitor blood sugar closely and if it starts to elevate,your provider will resume the Basaglar and titrate it Seek medical attention if your symptoms worsening Fall precaution Pending Studies at Discharge: No Stand-Alone Forms: My [facility] Skilled Items Patient informed of condition?: Yes DNR: No Discharge Level of Care: Acute rehab Communicable Disease: No Discharge Prognosis: Stable Lines: None Urinary Catheter: No Medications and DC Order Prescriptions: Continued metoprolol succinate 100 mg Tablet Extended Release 24 Hr 100 mg PO QAM RF: 0 gabapentin 400 mg Capsule 400 mg PO HS RF: 0 allopurinol 100 mg Tablet 200 mg PO DAILY RF: 0 aspirin 81 mg Tablet,Delayed Release (Dr/Ec) 81 mg PO Q OTHER DAY RF: 0 cyanocobalamin (vitamin B-12) 500 mcg Tablet 1,000 mcg PO QAM RF: 0 levothyroxine 125 mcg Tablet 125 mcg PO DAILY@0600 RF: 0 repaglinide 1 mg tablet 0 mg PO TIDM RF: 0 Januvia 25 mg tablet 25 mg PO DAILY RF: 0 furosemide 40 mg tablet 40 mg PO DAILY RF: 0 triamcinolone acetonide 0.1 % Cream 1 applic TOPICAL BID RF: 0 isosorbide mononitrate 60 mg tablet extended release 24 hr 30 mg PO QAM RF: 0 Discontinued Basaglar KwikPen U-100 Insulin 100 unit/mL (3 mL) insulin pen 10 unit SUBCUT QAM RF: 0 Discharge Orders: Discharge Order (Routine); Ordered 09/07/21 Ordered By: Davian Cervantes Admission Data Admit Date/Time: 08/26/21 16:08 Attending Provider: Davain Cervantes Admit Provider: Avinash Lowe Primary Care Provider: Blanca Orellana Other Providers: Kilo Cuello ; [facility] ; Avinash Lowe ; Ernesto Lawrence ; Alex Farrar ; Jesse Argueta ; Magdaleno Seth
--- NOTE | 2021-09-12 15:35 | Coding Query ---
CODING QUERY To promote full compliance with coding requirements relating to patient care, provider participation is requested in all cases of umbrella tipper hand uncertainty. Please assist us with the question(s) below: Coding Question(s): Pt adm with generalized weakness... elevated transaminitis. ERCP done= sludge swept cbd. Liver bx done showing possible congestive hepatology with separate finding of autoimmune hepatitis. Seeking to clarify the etiology of the transaminitis, responsible for patient's admission. Please document, if known or suspected, the etiology of the transaminitis. Thanks for your help! 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 Principal Diagnosis: "that condition established after study, to be chiefly responsible for occasioning the admission of the patient to the hospital for care." Co-Existing Principal Diagnosis: "when two or more diagnoses equally meet the criteria for principal diagnosis as determined by the circumstances of admission, diagnostic work up, and/or therapy provided, and the Alphabetic Index, Tabular List, or another coding guideline does not provide sequencing direction, any one of the diagnoses may be sequenced first." "When the physician has documented what appears to be a current diagnosis in the body of the record, but has not included the diagnosis in the final diagnostic statement, the physician should be asked whether the diagnosis should be added." (Source Coding Clinic 2 QTR90. p3-4) HENNY
== END 2021-09-07 14:00 | DRG 421 ==
LOC: ED 11:52 → 2S 16:08 → SUATTDRO 16:08 → 2S 18:09

== ENCOUNTER 2021-09-12 12:24 | Inpatient (IN) ==
--- NOTE | 2021-09-12 13:01 | XRay Report ---
XR chest 1V portable CLINICAL HISTORY: cough, cp. COMPARISON STUDY: 08/26/2021 TECHNIQUE: 1 view of the chest FINDINGS: Single frontal view of the chest demonstrates the heart to again be enlarged status post previous car diothoracic surgery and ICD placement The lungs are clear of alveolar opacities. There is no evidence for pleural effusion. There is no evidence for vascular congestion. There is no acute osseous pathol ogy. IMPRESSION: 1. No acute cardiopulmonary disease. ACT 112: Negative or not required by law. Electronically signed by: Samir Umana M.D. 09/12/2021 12:59 PM
[2021-09-12 13:24] LABS: Basophils # (auto) 0.02 K/uL (0-0.2); Basophils % (auto) 0.2 %; Eosinophils # (auto) 0.11 K/uL (0-0.5); Eosinophils % (auto) 1.3 %; Hematocrit (blood only) 35.8 % (42-52); Hemoglobin 11.8 g/dL (14.0-18.0); Immature Granulocytes # (auto) 0.04 K/uL (0.00-0.02); Immature Granulocytes % (auto) 0.5 %; Lymphocytes # (auto) 2.53 K/uL (1.2-3.4); Lymphocytes % (auto) 29.8 %; Mean Corpuscular Hemoglobin 33.1 pg (25-34); Mean Corpuscular Volume 100.3 fL (80-100); Mean Platelet Volume 10.8 fL (7.4-10.4); Monocytes # (auto) 1.37 K/uL (0.11-0.59); Monocytes % (auto) 16.1 %; Neutrophils # (auto) 4.43 K/uL (1.4-6.5); Neutrophils % (auto) 52.1 %; Platelet Count 216 K/uL (130-400); RDW Standard Deviation 69.3 fL (36.4-46.3); Red Blood Count 3.57 M/uL (4.7-6.1)
[2021-09-12 13:41] LABS: Albumin Globulin Ratio 1.3 (0.9-2); Albumin Level 2.9 gm/dl (3.4-5.0); BUN Creatinine Ratio 13.5 (10-20); Bilirubin,Total 5.2 mg/dl (0.2-1.0); Calcium 8.7 mg/dl (8.5-10.1); Creatinine Clr Calc Pharmacy 24.8 ml/min; Est GFR (African American) 29.3 ml/min; Est GFR (Non-African American) 25.3 ml/min; Globulin 2.3 gm/dl (2.5-4.0); Magnesium 1.7 mg/dl (1.7-2.4); Potassium 3.8 mmol/L (3.5-5.1); Total Protein 5.2 gm/dl (6.0-8.3)
[2021-09-12 14:10] LABS: Influenza A virus by PCR Negative (Neg); Influenza B virus by PCR Negative (Neg); RSV by PCR Negative (Neg)
[2021-09-12 14:18] LABS: Troponin I High Sensitivity 57.8 pg/ml (0-20)
[2021-09-12 14:38] LABS: SARS CoV2 RNA(COVID-19) InHosp POSITIVE (Negative)
--- NOTE | 2021-09-12 15:14 | Electrocardiogram Report ---
Test Reason : Blood Pressure : / mmHG Vent. Rate : 062 BPM Atrial Rate : 054 BPM P-R Int : 000 ms QRS Dur : 186 ms QT Int : 496 ms P-R-T Axes : 000 -73 103 degrees QTc Int : 503 ms Ventricular-paced rhythm Biventricular pacemaker detected Abnormal ECG When compared with ECG of 28-AUG-2021 05:48, No significant change was found Confirmed by Thad Wylie ([id number]) on 09/12/2021 3:13:54 PM Referred By: REFERRED SELF Confirmed By:Thad Wylie
[2021-09-12 15:19] LABS: Appearance Urine Clear (Clear); Bacteria Urine Automated Negative (Negative); Blood Urine Negative (Negative); Cast Urine Automated 0 /lpf (0-5); Color Urine Dark Yellow; Epithelial Cell Urine Auto 0-5 /lpf (0-5); Glucose Urine UA Negative (Negative); Ketones Urine Negative (Negative); Leukocyte Esterase Urine Negative (Negative); Nitrite Urine Positive (Negative); Protein Urine Negative (Negative); RBC Urine Automated 0-4 /hpf (0-4); Specific Gravity Urine 1.012 (1.000-1.030); Urobilinogen Urine Negative (Negative); WBC Urine Automated 0 /hpf (0-5)
--- NOTE | 2021-09-12 15:19 | Emergency Department Note ---
Impression & Plan Weakness, COVID-19, Acute urinary retention ED Provider Note Provider: Jerad Mckeon MD DATE OF SERVICE: 09/12/2021 CHIEF COMPLAINT: Cough, weakness HISTORY OF PRESENT ILLNESS: Patient is a 86-year-old gentleman with a past medical history of CAD, CHF, atrial fibrillation not anticoagulated due to fall risk, CKD, TIA, and recent mission to the hospital for weakness with elevated LFTs presenting from [facility] due to development of cough over the past 36 hours has been keeping him up. He states that he has been having a little bit of pain at the top of his chest as well related to the cough. States has had a clear to slightly yellow sputum with the cough. No fevers reported. No falls reported. Patient states his taste has been altered for a week or 2. Patient states that he is weak and has not been able to do as much physical therapy yesterday or today. Has not been eating anything yet today. Denies significant abdominal pain or nausea. Reports some continued mild discomfort appears to left knee initially brown to hospital on August. Patient is vaccinated for COVID. REVIEW OF SYSTEMS: A total of 10 review of systems was obtained and negative except as stated above in the HPI. PAST MEDICAL HISTORY: As noted above MEDICATIONS: Reviewed medication list from the facility SOCIAL HISTORY: Currently been at [facility] for rehab PHYSICAL EXAM: GENERAL: alert and oriented in no acute distress on stretcher but fatigued in appearance Head: normocephalic and atraumatic EYES: No injection, discharge or icterus. NECK: Trachea midline. ENT: Mucous membranes pink and moist. LUNGS: Airway patent. No retractions. Breath sounds clear with good air entry bilaterally. HEART: Regular rate and rhythm. No chest wall tenderness ABDOMEN: Soft without significant tenderness or guarding noted. SKIN: Acyanotic, warm, dry EXTREMITIES: Without swelling, tenderness or deformity some slight tenderness and healing abrasion of the left knee. NEUROLOGICAL: No focal deficits. No aphasia. No facial droop or slurred speech EK bpm ventricular paced rhythm without PVC. QTC 503 with expected bundle branch changes. No acute ST segment elevation of significance noted. CONTINUOUS CARDIAC MONITORING: was ordered and showed a heart rate of 60s bpm in ventricular paced rhythm Patient's laboratory studies and imaging reviewed. Differential includes Infection, dehydration, metabolic abnormality, hypo/hyperglycemia, electrolyte disturbance, anemia, hypoxia, cardiac sources, intracerebral event, toxicologic, neurologic, as well as other pathologies. IMPRESSION/MEDICAL DECISION MAKING: Patient with complex recent admission currently at [facility] rehab. Coughing last several days. No fever reported. Patient with some transient low blood pressure here but also with a bit of slight hypoxia. X-ray reassuring. Blood work shows generalized improvement of LFTs as well as troponin which are downtrending from recent admission. Patient without a significantly tender abdomen. Flu test was negative. COVID test returns positive. Had a negative test on August 26 during last admission. Believe he is symptomatic from this. Review of records and discussion with patient's son later at bedside expressed concerns regarding possible use of steroids. Patient's remdesivir options would be limited given his liver function issues although these are improving. Will defer to hospitalist. Patient with some evidence of urinary retention he required a Maldonado placement with 800 mL of urine returned. Some slight increase in creatinine today I wonder if that is related to some retention. Given his weakness and mild hypoxia discussed further observation here in the hospital. DIAGNOSIS: COVID-19, weakness, cough, hypoxia, urinary retention DISPOSITION: Hospitalist will evaluate Patient was agreeable with this plan. Son updated at bedside. Past Med/Surg History Medical History (Updated 09/12/21 @ 18:08 by Jerad Mckeon M.D.) Benign prostatic hyperplasia with urinary obstruction Biventricular automatic implantable cardioverter defibrillator in situ CAD (coronary artery disease) Status post inferior wall myocardial infarction in 1980 Status post January 1997 coronary bypass grafting x 3, receiving a RUSS graft to the LAD, a saphenous vein graft to the ramus, and a SVG to the 1st obtuse marginal. CHB (complete heart block) pt admitted for elective upgrade to biv icd. Underwent procedure without any complications and monitored overnight Diabetes DM type 2 (diabetes mellitus, type 2) Gout High cholesterol History of atrial fibrillation PAF HTN (hypertension) Hyperlipidemia Hypothyroidism ICD (implantable cardioverter-defibrillator) battery depletion Status post dual chamber pacemaker defibrillator implantation on March 11, 2004, generator exchanges on 07/09/2009, and November 11, 2014 using a [employer] XT [id number] device. Status post December 19, 2018 upgrade from a dual chamber implantable cardiac defibrillator to a biventricular rate responsive implantable cardiac defibrillator by Dr. Basurto at [facility]. Ischemic cardiomyopathy PPM upgraded to BiV ICD Osteoarthritis Stage 4 chronic kidney disease Baseline creatinine 2.4-2.8 range per records Systolic heart failure Tachy-pablo syndrome Transient ischemic attack (TIA) 2014 Urinary urgency V tach Hx Surgical History History of cardiac cath History of colonoscopy History of eye surgery History of implantable cardiac defibrillator (ICD) History of tonsillectomy History of tooth extraction History of transurethral resection of prostate TURP (02/20/18): LMA#4 (iGel) at [facility] Hx of CABG CABG x3 (1996)- RUSS-LAD, SVG-RAMUS, SVG TO OM1 Hx of transurethral resection of prostate ICD (implantable cardioverter-defibrillator) in place Implanted (2003); Generator change (2009) Family History Brother Prostate cancer Diabetes Coronary heart disease Mother Diabetes Stroke Coronary heart disease Father Stroke Social History Smoking Status: Never smoker Second Hand Exposure: No; Hx Alcohol Use: No Hx Substance Use: No Preferred Language: Indonesian Communication Ability: Effective Date Night Sitter Required: No Beliefs That Will Affect Care: None marital status: Current Living Situation: Spouse How many Children do You have: 4 Feels Safe at Home: Yes Assistive Devices: Cane and Walker Allergies Allergies Allergy/AdvReac Type Severity Reaction Status Date / Time procaine [From Novocain] Allergy Intermediate Fever Verified 08/31/21 14:12 tamsulosin [From Flomax] AdvReac Severe Fainting Verified 08/26/21 15:12 amlodipine AdvReac Mild INSOMNIA Verified 08/26/21 15:12 Fibrate Anti-Lipidemics AdvReac Unknown NECK PAIN Verified 08/31/21 14:12 Home Meds Home Medications Medication Instructions Recorded Confirmed allopurinol 100 mg tablet 200 mg PO DAILY 10/20/18 09/12/21 aspirin 81 mg tablet,delayed 81 mg PO Q OTHER DAY 10/20/18 09/12/21 release cyanocobalamin (vitamin B-12) 500 1,000 mcg PO QAM 10/20/18 09/12/21 mcg tablet gabapentin 400 mg capsule 400 mg PO HS 10/20/18 09/12/21 levothyroxine 125 mcg tablet 125 mcg PO DAILY@0600 10/20/18 09/12/21 metoprolol succinate 100 mg 100 mg PO QAM 10/20/18 09/12/21 tablet,extended release 24 hr repaglinide 1 mg tablet 0 mg PO TIDM 07/22/21 09/12/21 sitagliptin 25 mg tablet (Januvia) 25 mg PO DAILY 07/22/21 09/12/21 furosemide 40 mg tablet 40 mg PO DAILY 08/26/21 09/12/21 isosorbide mononitrate 60 mg 30 mg PO QAM 08/26/21 09/12/21 tablet,extended release 24 hr triamcinolone acetonide 0.1 % 1 applic TOPICAL BID 08/26/21 09/12/21 topical cream Results & Data (ED) Vital Signs Vital Signs - 24 hr 09/12/21 12:13 09/12/21 12:32 09/12/21 12:38 Temperature 37.1 C Temperature Source Oral Pulse Rate 61 61 Pulse Rate from SpO2 Sensor 61 Respiratory Rate 20 20 Respiratory Effort / Characteristics Non-Labored Respiratory Depth Normal Blood Pressure 93/55 L Blood Pressure Mean 67 Pulse Oximetry 94 95 94 Oxygen Delivery Method Room Air Room Air Sepsis Recent Fever Within 48 Hours No Sepsis New/Unexplained Change in Mental Status No Sepsis Action Taken by Nursing No Action Required 09/12/21 12:40 09/12/21 12:50 09/12/21 13:00 Temperature Temperature Source Pulse Rate 60 60 60 Pulse Rate from SpO2 Sensor 60 60 60 Respiratory Rate 22 15 15 Respiratory Effort / Characteristics Respiratory Depth Blood Pressure 88/46 L Blood Pressure Mean 60 Pulse Oximetry 85 L 93 92 Oxygen Delivery Method Sepsis Recent Fever Within 48 Hours Sepsis New/Unexplained Change in Mental Status Sepsis Action Taken by Nursing 09/12/21 13:10 09/12/21 13:20 09/12/21 13:28 Temperature Temperature Source Pulse Rate 60 60 60 Pulse Rate from SpO2 Sensor 60 60 60 Respiratory Rate 14 26 H 19 Respiratory Effort / Characteristics Respiratory Depth Blood Pressure 92/46 L Blood Pressure Mean 61 Pulse Oximetry 93 91 90 Oxygen Delivery Method Sepsis Recent Fever Within 48 Hours Sepsis New/Unexplained Change in Mental Status Sepsis Action Taken by Nursing 09/12/21 13:30 09/12/21 13:32 09/12/21 13:40 Temperature Temperature Source Pulse Rate 60 60 60 Pulse Rate from SpO2 Sensor 60 60 62 Respiratory Rate 13 18 17 Respiratory Effort / Characteristics Respiratory Depth Blood Pressure 88/45 L 95/46 L Blood Pressure Mean 59 62 Pulse Oximetry 89 L 83 L 100 Oxygen Delivery Method Sepsis Recent Fever Within 48 Hours Sepsis New/Unexplained Change in Mental Status Sepsis Action Taken by Nursing 09/12/21 13:45 09/12/21 13:50 09/12/21 14:00 Temperature Temperature Source Pulse Rate 60 60 60 Pulse Rate from SpO2 Sensor 60 60 60 Respiratory Rate 16 18 21 Respiratory Effort / Characteristics Respiratory Depth Blood Pressure 98/55 L 111/54 L Blood Pressure Mean 69 73 Pulse Oximetry 100 99 100 Oxygen Delivery Method Sepsis Recent Fever Within 48 Hours Sepsis New/Unexplained Change in Mental Status Sepsis Action Taken by Nursing 09/12/21 14:10 09/12/21 14:15 09/12/21 14:20 Temperature Temperature Source Pulse Rate 62 60 60 Pulse Rate from SpO2 Sensor 61 60 60 Respiratory Rate 20 21 22 Respiratory Effort / Characteristics Respiratory Depth Blood Pressure 110/51 L Blood Pressure Mean 70 Pulse Oximetry 100 100 100 Oxygen Delivery Method Sepsis Recent Fever Within 48 Hours Sepsis New/Unexplained Change in Mental Status Sepsis Action Taken by Nursing 09/12/21 14:30 09/12/21 14:40 09/12/21 14:45 Temperature Temperature Source Pulse Rate 60 60 60 Pulse Rate from SpO2 Sensor 60 60 59 L Respiratory Rate 21 22 21 Respiratory Effort / Characteristics Respiratory Depth Blood Pressure 109/55 L 107/53 L Blood Pressure Mean 73 71 Pulse Oximetry 100 100 98 Oxygen Delivery Method Sepsis Recent Fever Within 48 Hours Sepsis New/Unexplained Change in Mental Status Sepsis Action Taken by Nursing 09/12/21 14:50 09/12/21 15:00 09/12/21 15:10 Temperature Temperature Source Pulse Rate 60 60 60 Pulse Rate from SpO2 Sensor 60 60 60 Respiratory Rate 19 16 21 Respiratory Effort / Characteristics Respiratory Depth Blood Pressure 108/56 L Blood Pressure Mean 73 Pulse Oximetry 100 100 100 Oxygen Delivery Method Sepsis Recent Fever Within 48 Hours Sepsis New/Unexplained Change in Mental Status Sepsis Action Taken by Nursing 09/12/21 15:15 09/12/21 15:20 09/12/21 15:30 Temperature Temperature Source Pulse Rate 60 60 60 Pulse Rate from SpO2 Sensor 60 60 60 Respiratory Rate 20 20 22 Respiratory Effort / Characteristics Respiratory Depth Blood Pressure 108/51 L 108/54 L Blood Pressure Mean 70 72 Pulse Oximetry 100 100 100 Oxygen Delivery Method Sepsis Recent Fever Within 48 Hours Sepsis New/Unexplained Change in Mental Status Sepsis Action Taken by Nursing 09/12/21 15:40 Temperature Temperature Source Pulse Rate 60 Pulse Rate from SpO2 Sensor 60 Respiratory Rate 19 Respiratory Effort / Characteristics Respiratory Depth Blood Pressure Blood Pressure Mean Pulse Oximetry 99 Oxygen Delivery Method Sepsis Recent Fever Within 48 Hours Sepsis New/Unexplained Change in Mental Status Sepsis Action Taken by Nursing Laboratory Data Result diagrams: 09/12/21 13:00 09/12/21 13:00 Lab Results 09/12/21 09/12/21 09/12/21 Range/Units 13:00 13:00 13:00 WBC 8.50 (4.8-10.8) K/uL RBC 3.57 L (4.7-6.1) M/uL Hgb 11.8 L (14.0-18.0) g/dL Hct 35.8 L (42-52) % MCV 100.3 H (80-100) fL MCH 33.1 (25-34) pg MCHC 33.0 (32-36) g/dL RDW Std Deviation 69.3 H (36.4-46.3) fL RDW Coeff of [place] 19.0 H (11.5-14.5) % Plt Count 216 (130-400) K/uL MPV 10.8 H (7.4-10.4) fL Immature Gran % (Auto) 0.5 % Neut % (Auto) 52.1 % Lymph % (Auto) 29.8 % [place] % (Auto) 16.1 % Eos % (Auto) 1.3 % Baso % (Auto) 0.2 % Neut # (Auto) 4.43 (1.4-6.5) K/uL Lymph # (Auto) 2.53 (1.2-3.4) K/uL [place] # (Auto) 1.37 H (0.11-0.59) K/uL Eos # (Auto) 0.11 (0-0.5) K/uL Baso # (Auto) 0.02 (0-0.2) K/uL Immature Gran # (Auto) 0.04 H (0.00-0.02) K/uL Sodium 139 (136-145) mmol/L Potassium 3.8 (3.5-5.1) mmol/L Chloride 105 (98-107) mmol/L Carbon Dioxide 27 (21-32) mmol/L Anion Gap 7 (3-11) BUN 31 H (6-23) mg/dl Creatinine 2.29 H (0.6-1.4) mg/dl Est Cr Clr Drug Dosing 24.8 ml/min Est GFR ( Amer) 29.3 ml/min Est GFR (Non-Af Amer) 25.3 ml/min BUN/Creatinine Ratio 13.5 (10-20) Glucose 100 H (70-99(Fasting)) mg/dl Calcium 8.7 (8.5-10.1) mg/dl Magnesium 1.7 (1.7-2.4) mg/dl Total Bilirubin 5.2 H (0.2-1.0) mg/dl AST 101 H (13-39) U/L ALT 105 H (7-52) U/L Alkaline Phosphatase 651 H (34-104) U/L Troponin I High Sens 57.8 H* (0-20) pg/ml Total Protein 5.2 L (6.0-8.3) gm/dl Albumin 2.9 L (3.4-5.0) gm/dl Globulin 2.3 L (2.5-4.0) gm/dl Albumin/Globulin Ratio 1.3 (0.9-2) TSH 4.340 (0.300-4.500) uIu/ml Urine Color Urine Appearance (Clear) Urine pH (4.5-7.5) Ur Specific [place] (1.000-1.030) Urine Protein (Negative) Urine Glucose (UA) (Negative) Urine Ketones (Negative) Urine Blood (Negative) Urine Nitrite (Negative) Urine Bilirubin (Negative) Urine Urobilinogen (Negative) Ur Leukocyte Esterase (Negative) Urine WBC (Auto) (0-5) /hpf Urine RBC (Auto) (0-4) /hpf U Hyaline Cast (Auto) (0-5) /lpf U Epithel Cells (Auto) (0-5) /lpf Urine Bacteria (Auto) (Negative) SARS-CoV-2 (PCR) (Negative) Influenza Type A (PCR) (Neg) Influenza Type B (PCR) (Neg) RSV (RT-PCR) (Neg) 09/12/21 09/12/21 Range/Units 13:00 14:52 WBC (4.8-10.8) K/uL RBC (4.7-6.1) M/uL Hgb (14.0-18.0) g/dL Hct (42-52) % MCV (80-100) fL MCH (25-34) pg MCHC (32-36) g/dL RDW Std Deviation (36.4-46.3) fL RDW Coeff of [place] (11.5-14.5) % Plt Count (130-400) K/uL MPV (7.4-10.4) fL Immature Gran % (Auto) % Neut % (Auto) % Lymph % (Auto) % [place] % (Auto) % Eos % (Auto) % Baso % (Auto) % Neut # (Auto) (1.4-6.5) K/uL Lymph # (Auto) (1.2-3.4) K/uL [place] # (Auto) (0.11-0.59) K/uL Eos # (Auto) (0-0.5) K/uL Baso # (Auto) (0-0.2) K/uL Immature Gran # (Auto) (0.00-0.02) K/uL Sodium (136-145) mmol/L Potassium (3.5-5.1) mmol/L Chloride (98-107) mmol/L Carbon Dioxide (21-32) mmol/L Anion Gap (3-11) BUN (6-23) mg/dl Creatinine (0.6-1.4) mg/dl Est Cr Clr Drug Dosing ml/min Est GFR ( Amer) ml/min Est GFR (Non-Af Amer) ml/min BUN/Creatinine Ratio (10-20) Glucose (70-99(Fasting)) mg/dl Calcium (8.5-10.1) mg/dl Magnesium (1.7-2.4) mg/dl Total Bilirubin (0.2-1.0) mg/dl AST (13-39) U/L ALT (7-52) U/L Alkaline Phosphatase (34-104) U/L Troponin I High Sens (0-20) pg/ml Total Protein (6.0-8.3) gm/dl Albumin (3.4-5.0) gm/dl Globulin (2.5-4.0) gm/dl Albumin/Globulin Ratio (0.9-2) TSH (0.300-4.500) uIu/ml Urine Color Dark Yellow Urine Appearance Clear (Clear) Urine pH 5.0 (4.5-7.5) Ur Specific [place] 1.012 (1.000-1.030) Urine Protein Negative (Negative) Urine Glucose (UA) Negative (Negative) Urine Ketones Negative (Negative) Urine Blood Negative (Negative) Urine Nitrite Positive A (Negative) Urine Bilirubin 1+ H (Negative) Urine Urobilinogen Negative (Negative) Ur Leukocyte Esterase Negative (Negative) Urine WBC (Auto) 0 (0-5) /hpf Urine RBC (Auto) 0-4 (0-4) /hpf U Hyaline Cast (Auto) 0 (0-5) /lpf U Epithel Cells (Auto) 0-5 (0-5) /lpf Urine Bacteria (Auto) Negative (Negative) SARS-CoV-2 (PCR) POSITIVE A* (Negative) Influenza Type A (PCR) Negative (Neg) Influenza Type B (PCR) Negative (Neg) RSV (RT-PCR) Negative (Neg) Imaging Data Radiologist's Impression: Chest X-Ray 09/12/21 12:38 XR chest 1V portable CLINICAL HISTORY: cough, cp. COMPARISON STUDY: 08/26/2021 TECHNIQUE: 1 view of the chest FINDINGS: Single frontal view of the chest demonstrates the heart to again be enlarged status post previous cardiothoracic surgery and ICD placement The lungs are clear of alveolar opacities. There is no evidence for pleural effusion. There is no evidence for vascular congestion. There is no acute osseous pathology. IMPRESSION: 1. No acute cardiopulmonary disease. ACT 112: Negative or not required by law. Electronically signed by: Samir Umana M.D. 09/12/2021 12:59 PM Discharge Plan Visit Data Chief Complaint: Illness ED Provider: Jerad Mckeon Discharge Problem: Weakness, COVID-19, Acute urinary retention Patient Disposition: Being Evaluated by Hospitalist Forms Stand Alone Forms: [facility] Prescriptions Prescriptions: No Action metoprolol succinate 100 mg Tablet Extended Release 24 Hr 100 mg PO QAM RF: 0 gabapentin 400 mg Capsule 400 mg PO HS RF: 0 allopurinol 100 mg Tablet 200 mg PO DAILY RF: 0 aspirin 81 mg Tablet,Delayed Release (Dr/Ec) 81 mg PO Q OTHER DAY RF: 0 cyanocobalamin (vitamin B-12) 500 mcg Tablet 1,000 mcg PO QAM RF: 0 levothyroxine 125 mcg Tablet 125 mcg PO DAILY@0600 RF: 0 repaglinide 1 mg tablet 0 mg PO TIDM RF: 0 Januvia 25 mg tablet 25 mg PO DAILY RF: 0 furosemide 40 mg tablet 40 mg PO DAILY RF: 0 triamcinolone acetonide 0.1 % Cream 1 applic TOPICAL BID RF: 0 isosorbide mononitrate 60 mg tablet extended release 24 hr 30 mg PO QAM RF: 0 Referrals Referrals: Blanca Orellana MD [Primary Care Provider] -
[2021-09-12 15:36] LABS: Bilirubin Urine 1+ (Negative)
--- NOTE | 2021-09-12 17:37 | History & Physical Report ---
Date of Service September 12, 2021 Assessment & Plan (1) COVID-19: Plan: Present on admission with cough and weakness Testing positive for COVID 19 CXR showed no acute cardiopulmonary abnormality Pt does not meet criteria for Steroid and Remdesivir since he is saturated well on RA Discussed with son about steroid if pt becomes hypoxia, Son will not want to start on any steroid Will do incentive spirometry and flutter valve Will check ESR, CRP and procalcitonin in am Continue monitor closely Weakness Patient's advanced age and multiple comorbid conditions likely contributing to his generalized weakness Pt was transferred to rehab due to the weakness (not new) Continue PT/OT Fall precaution Will talk to immigration case worker to transfer to rehab Transaminitis: AST 101, ALT [address] ABD/pelvis during last admission showed the gallbladder is distended and there are numerous small calcified gallstones. There is minimal pericholecystic infiltration. EUS during last admission showed gallstones and sludge, CBD was not dilated, there was a questionable choledocholithiasis however Liver biopsy was obtained to r/o other etiologies of elevated LFTs. ERCP during last admission showed sphincterotomy performed and the duct was swept and only minimal sludge removed, no stones seen. 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: Continue home dose of furosemide Continue ASA, beta-corky, nitrate CKD (chronic kidney disease) stage 4, GFR 15-29 ml/min: Baseline creatinine mid 2s- low 3s Creatinine 2.2 today Continue monitor BMP Stable Tachy-pablo syndrome: ICD (implantable cardioverter-defibrillator) in place: Pacemaker: Device interrogation was done during last admission TIA (transient ischemic attack): Continue ASA, statin discontinued due to transaminitis Will continue to hold statin for now (14) DM type 2 (diabetes mellitus, type 2): Most recent Hgb A1c 9.2 on 07/2021 NovoLog per protocol while hospitalized BS has been control might be due to diet in the hospital Will hold on Basaglar on discharge, but once BS starts to elevate will resume it and titrate it slowly Will resume PO diabetes med on discharge DVT px on heparin subq CODE status DNR History of Present Illness Chief Complaint: Cough Primary Care Provider: Blanca Orellana MD 86-year-old gentleman with a past medical history of CAD, CHF, atrial fibrillation not anticoagulated due to fall risk, CKD, TIA that was recently discharged from [facility] to [facility] for weakness and elevated LFTs presented to the ED for cough and weakness. History obtained from patient and son at bedside. Pt said that he has been having a dry cough for about 2 days. He said that he is not having any SOB or fever. He said that he has been very tired and weak that he has not been able to participate in therapy. Patient is vaccinated for COVID. Denies any chest pain, palpitation, dizziness, SOB and fever. Allergies Allergy/AdvReac Type Severity Reaction Status Date / Time procaine [From Novocain] Allergy Intermediate Fever Verified 08/31/21 14:12 tamsulosin [From Flomax] AdvReac Severe Fainting Verified 08/26/21 15:12 amlodipine AdvReac Mild INSOMNIA Verified 08/26/21 15:12 Fibrate Anti-Lipidemics AdvReac Unknown NECK PAIN Verified 08/31/21 14:12 Home Medications Medication Instructions Recorded Confirmed Type allopurinol 100 mg tablet 200 mg PO DAILY 10/20/18 09/12/21 History aspirin 81 mg tablet,delayed 81 mg PO Q OTHER DAY 10/20/18 09/12/21 History release cyanocobalamin (vitamin B-12) 500 1,000 mcg PO QAM 10/20/18 09/12/21 History mcg tablet gabapentin 400 mg capsule 400 mg PO HS 10/20/18 09/12/21 History levothyroxine 125 mcg tablet 125 mcg PO DAILY@0600 10/20/18 09/12/21 History metoprolol succinate 100 mg 100 mg PO QAM 10/20/18 09/12/21 History tablet,extended release 24 hr repaglinide 1 mg tablet 0 mg PO TIDM 07/22/21 09/12/21 History sitagliptin 25 mg tablet (Januvia) 25 mg PO DAILY 07/22/21 09/12/21 History furosemide 40 mg tablet 40 mg PO DAILY 08/26/21 09/12/21 History isosorbide mononitrate 60 mg 30 mg PO QAM 08/26/21 09/12/21 History tablet,extended release 24 hr triamcinolone acetonide 0.1 % 1 applic TOPICAL BID 08/26/21 09/12/21 History topical cream Past Med/Surg History Medical History (Updated 09/12/21 @ 18:08 by Jerad Mckeon M.D.) Benign prostatic hyperplasia with urinary obstruction Biventricular automatic implantable cardioverter defibrillator in situ CAD (coronary artery disease) Status post inferior wall myocardial infarction in 1980 Status post January 1997 coronary bypass grafting x 3, receiving a RUSS graft to the LAD, a saphenous vein graft to the ramus, and a SVG to the 1st obtuse marginal. CHB (complete heart block) pt admitted for elective upgrade to biv icd. Underwent procedure without any complications and monitored overnight Diabetes DM type 2 (diabetes mellitus, type 2) Gout High cholesterol History of atrial fibrillation PAF HTN (hypertension) Hyperlipidemia Hypothyroidism ICD (implantable cardioverter-defibrillator) battery depletion Status post dual chamber pacemaker defibrillator implantation on March 11, 2004, generator exchanges on 07/09/2009, and November 11, 2014 using a [employer] Evera XT DR [id number] device. Status post December 19, 2018 upgrade from a dual chamber implantable cardiac defibrillator to a biventricular rate responsive implantable cardiac defibrillator by Dr. Basurto at [facility]. Ischemic cardiomyopathy PPM upgraded to BiV ICD Osteoarthritis Stage 4 chronic kidney disease Baseline creatinine 2.4-2.8 range per records Systolic heart failure Tachy-pablo syndrome Transient ischemic attack (TIA) 2014 Urinary urgency V tach Hx Surgical History History of cardiac cath History of colonoscopy History of eye surgery History of implantable cardiac defibrillator (ICD) History of tonsillectomy History of tooth extraction History of transurethral resection of prostate TURP (02/20/18): LMA#4 (iGel) at [facility] Hx of CABG CABG x3 (1996)- RUSS-LAD, SVG-RAMUS, SVG TO OM1 Hx of transurethral resection of prostate ICD (implantable cardioverter-defibrillator) in place Implanted (2003); Generator change (2009) Family History Brother Prostate cancer Diabetes Coronary heart disease Mother Diabetes Stroke Coronary heart disease Father Stroke Social History Smoking Status: Never smoker Second Hand Exposure: No; Do You Dip or Chew Tobacco: No; Tobacco Cessation Education Requested by Patient: No Hx Alcohol Use: No Hx Substance Use: No Preferred Language: Italian Communication Ability: Effective Meat Boner And Slicer Required: No Beliefs That Will Affect Care: None marital status: Current Living Situation: Rehab How many Children do You have: 4 Other Information That Helps Us Care for You: No Feels Safe at Home: Yes Safety Concerns: Feels Safe At This Time Assistive Devices: Walker Review of Systems Review of Systems: All systems reviewed & are unremarkable except as noted in Subjective Physical Exam Physical Exam: General- No acute distress Head- atraumatic Eyes- PERRL, EOMI, ENT- oropharynx clear Neck- supple, no JVD Lungs- clear to auscultation Heart- regular rhythm; no murmur Abdomen- normal bowel sounds, soft, no tenderness Extremities- no calf tenderness Neuro- alert, oriented x 3; PERRL, EOMI; no facial palsy; no dysarthria Skin- warm & dry Results & Data Results & Data ([facility]) Vital Signs (Past 12 Hours) Vital Signs Temp Pulse Resp BP Pulse Ox 09/12/21 15:40 60 19 99 09/12/21 15:30 60 22 108/54 L 100 09/12/21 15:20 60 20 100 09/12/21 15:15 60 20 108/51 L 100 09/12/21 15:10 60 21 100 09/12/21 15:00 60 16 108/56 L 100 09/12/21 14:50 60 19 100 09/12/21 14:45 60 21 107/53 L 98 09/12/21 14:40 60 22 100 09/12/21 14:30 60 21 109/55 L 100 09/12/21 14:20 60 22 100 09/12/21 14:15 60 21 110/51 L 100 09/12/21 14:10 62 20 100 09/12/21 14:00 60 21 111/54 L 100 09/12/21 13:50 60 18 99 09/12/21 13:45 60 16 98/55 L 100 05/22/22 13:40 60 17 100 09/12/21 13:32 60 18 95/46 L 83 L 09/12/21 13:30 60 13 88/45 L 89 L 09/12/21 13:28 60 19 92/46 L 90 09/12/21 13:20 60 26 H 91 09/12/21 13:10 60 14 93 09/12/21 13:00 60 15 88/46 L 92 09/12/21 12:50 60 15 93 09/12/21 12:40 60 22 85 L 09/12/21 12:38 94 09/12/21 12:32 61 20 95 09/12/21 12:13 37.1 C 61 20 93/55 L 94 Diagnostic Findings XR chest 1V portable CLINICAL HISTORY: cough, cp. COMPARISON STUDY: 08/26/2021 TECHNIQUE: 1 view of the chest FINDINGS: Single frontal view of the chest demonstrates the heart to again be enlarged status post previous cardiothoracic surgery and ICD placement The lungs are clear of alveolar opacities. There is no evidence for pleural effusion. There is no evidence for vascular congestion. There is no acute osseous pathology. IMPRESSION: 1. No acute cardiopulmonary disease. ACT 112: Negative or not required by law. Electronically signed by: Samir Umana M.D. 09/12/2021 12:59 PM Code Status & VTE Plan VTE Prophylaxis Plan VTE Prophylaxis will be ordered: Yes
[2021-09-12] MEDS ORDERED: ASPIRIN 81 MG ECTAB PO SCH (20:00)
[2021-09-12] MEDS: guaiFENesin 200 MG TAB PO SCH (21:33)
[2021-09-12] MEDS: GABAPENTIN 400 MG CAP PO SCH (21:33)
[2021-09-12] MEDS: HEPARIN SOD 5,000 UNIT/0.5 ML VIAL SQ SCH (21:34)
[2021-09-13] MEDS: guaiFENesin 200 MG TAB PO SCH ×4 (01:37→20:06)
[2021-09-13] MEDS: LEVOTHYROXINE SODIUM 125 MCG TABLET PO SCH (05:50)
[2021-09-13] MEDS: HEPARIN SOD 5,000 UNIT/0.5 ML VIAL SQ SCH ×3 (05:50→20:03)
[2021-09-13 08:27] LABS: Hematocrit (blood only) 38.8 % (42-52); Hemoglobin 12.5 g/dL (14.0-18.0); Mean Corpuscular Hemoglobin 32.9 pg (25-34); Mean Corpuscular Hgb Conc 32.2 g/dL (32-36); Mean Corpuscular Volume 102.1 fL (80-100); Mean Platelet Volume 10.8 fL (7.4-10.4); Platelet Count 208 K/uL (130-400); RDW Coefficient of Variation 19.5 % (11.5-14.5); RDW Standard Deviation 72.2 fL (36.4-46.3); White Blood Count 7.95 K/uL (4.8-10.8)
[2021-09-13] MEDS: ISOSORBIDE MONO EXTENDED REL 30 MG TABCR PO SCH (09:01)
[2021-09-13] MEDS: METOPROLOL SUCC 50MG EXT REL TAB PO SCH (09:01)
[2021-09-13] MEDS: CYANOCOBALAMIN (B-12) 500 MCG TABLET PO SCH (09:01)
[2021-09-13] MEDS: FUROSEMIDE 40 MG TAB PO SCH (09:01)
[2021-09-13] MEDS: allopurinoL 100 MG TAB PO SCH (09:01)
[2021-09-13 09:13] LABS: Ferritin 377.5 ng/ml (8-388)
[2021-09-13] MEDS ORDERED: DEXTROSE 50% 50 ML SYRINGE IV PRN (09:16)
[2021-09-13] MEDS ORDERED: GLUCOSE 40% GEL 15 GM TUBE PO PRN (09:16)
[2021-09-13] MEDS ORDERED: CARBOHYDRATES FOR HYPOGLYCEMIA PO PRN (09:16)
[2021-09-13] MEDS ORDERED: GLUCAGON FOR INJ 1 MG VIAL SQ PRN (09:16)
[2021-09-13] MEDS ORDERED: GLUCOSE 10 TABS/TUBE PO PRN (09:16)
[2021-09-13 09:44] LABS: Potassium 4.4 mmol/L (3.5-5.1)
[2021-09-13 09:45] LABS: Albumin Globulin Ratio 1.1 (0.9-2); Albumin Level 2.9 gm/dl (3.4-5.0); BUN Creatinine Ratio 15.2 (10-20); Bilirubin,Total 4.5 mg/dl (0.2-1.0); C Reactive Protein 6.37 mg/dl (0-0.5); Calcium 9.2 mg/dl (8.5-10.1); Creatinine Clr Calc Pharmacy 27.8 ml/min; Est GFR (African American) 33.7 ml/min; Est GFR (Non-African American) 29.1 ml/min; Globulin 2.6 gm/dl (2.5-4.0); Total Protein 5.5 gm/dl (6.0-8.3)
[2021-09-13] MEDS: INSULIN ASPART PER UNIT SC SCH ×3 (12:38→20:17)
[2021-09-13] MEDS ORDERED: ACETAMINOPHEN 500 MG TAB PO PRN (15:07)
[2021-09-13] MEDS: GABAPENTIN 400 MG CAP PO SCH (20:06)
--- NOTE | 2021-09-13 21:51 | Hospitalist Progress Note ---
Date of Service September 13, 2021 Assessment & Plan (1) COVID-19: Plan: Present on admission with cough and weakness Testing positive for COVID 19 CXR showed no acute cardiopulmonary abnormality Pt does not meet criteria for Steroid and Remdesivir since he is saturated well on RA Elevated ESR of 24, CRP 6.37 and procalcitonin 0.69 Discussed with son about steroid if pt becomes hypoxia, Son will not want to start on any steroid Spoke to today and she said she will be ok to try a different steroid other than the prednisone if pt meets criteria for steroid therapy for the covid 19 Continue incentive spirometry and flutter valve Will monitor ESR, CRP and procalcitonin in am Will get an overnight pulse oximetry Continue monitor closely Elevated procalcitonin Possible related to elevate creatinine vs bacterial infection WBC normal and afebrile CXR showed no infiltrate Will hold on abx for now Will repeat procalcitonin in am If procalcitonin increases, will check blood cx If patient became febrile, will start on IV abx Weakness Patient's advanced age and multiple comorbid conditions likely contributing to his generalized weakness Pt was transferred to rehab due to the weakness (not new) Continue PT/OT Fall precaution Will talk to bilingual patient support caseworker to transfer to rehab Transaminitis: AST 101, ALT 105 and ALK 651 on admission Liver enzymes trending down slowly with AST 93, ALT [address] ABD/pelvis during last admission showed the gallbladder is distended and there are numerous small calcified gallstones. There is minimal pericholecystic infiltration. EUS during last admission showed gallstones and sludge, CBD was not dilated, there was a questionable choledocholithiasis however Liver biopsy was obtained to r/o other etiologies of elevated LFTs. ERCP during last admission showed sphincterotomy performed and the duct was swept and only minimal sludge removed, no stones seen. 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: Continue home dose of furosemide Continue ASA, beta-corky, nitrate CKD (chronic kidney disease) stage 4, GFR 15-29 ml/min: Baseline creatinine mid 2s- low 3s Creatinine 2.04 today Continue monitor BMP Stable Tachy-pablo syndrome: ICD (implantable cardioverter-defibrillator) in place: Pacemaker: Device interrogation was done during last admission TIA (transient ischemic attack): Continue ASA, statin discontinued due to transaminitis Will continue to hold statin for now DM type 2 (diabetes mellitus, type 2): Most recent Hgb A1c 9.2 on 07/2021 NovoLog per protocol while hospitalized BS has been control might be due to diet in the hospital Continue to hold on Basaglar on discharge, but once BS starts to elevate will resume it and titrate it slowly Will resume PO diabetes med on discharge DVT px on heparin subq CODE status DNR Admission and Anticipated Discharge Date Admission Date: September 12, 2021 Subjective Pt was seen and examined for follow up of cough due to Covid 19 Lying in bed comfortable with no acute distress Nurse said patient is very weak and required assistance to get out from bed to chair He is complaining of left knee Spoke to over the phone and provided with updates said she sometimes noticed for years that patient has brief episode of apnea during sleep patient oxygen seems to drop when sleeping Denies any chest pain, palpitation, dizziness, shortness of breath. Review of Systems Review of Systems: All systems reviewed & are unremarkable except as noted in Subjective Physical Exam Physical Exam: General- No acute distress Head- atraumatic Eyes- PERRL, EOMI, ENT- oropharynx clear Neck- supple, no JVD Lungs- clear to auscultation Heart- regular rhythm; no murmur Abdomen- normal bowel sounds, soft, no tenderness Extremities- no calf tenderness, left knee tenderness Neuro- alert, oriented x 3; PERRL, EOMI; no facial palsy; no dysarthria Skin- warm & dry Results & Data Results & Data ([facility]) Vital Signs (Past 12 Hours) Vital Signs Temp Pulse Pulse Resp BP Pulse Ox 09/13/21 19:58 36.9 C 63 18 107/56 L 94 09/13/21 15:46 36.8 C 60 18 113/62 92 09/13/21 14:58 61 09/13/21 13:41 62 09/13/21 10:57 36.7 C 60 20 105/58 L 93
[2021-09-14] MEDS: guaiFENesin 200 MG TAB PO SCH ×3 (01:02→12:54)
[2021-09-14] MEDS: HEPARIN SOD 5,000 UNIT/0.5 ML VIAL SQ SCH ×2 (05:00→12:54)
[2021-09-14] MEDS: LEVOTHYROXINE SODIUM 125 MCG TABLET PO SCH (05:25)
[2021-09-14] MEDS: CYANOCOBALAMIN (B-12) 500 MCG TABLET PO SCH (07:54)
[2021-09-14] MEDS: FUROSEMIDE 40 MG TAB PO SCH (07:54)
[2021-09-14] MEDS: allopurinoL 100 MG TAB PO SCH (07:54)
[2021-09-14] MEDS: METOPROLOL SUCC 50MG EXT REL TAB PO SCH (07:54)
[2021-09-14] MEDS: ISOSORBIDE MONO EXTENDED REL 30 MG TABCR PO SCH (07:55)
[2021-09-14] MEDS ORDERED: MUPIROCIN 2% OINT 22 GM TUBE EXT SCH (09:00)
[2021-09-14 09:17] LABS: Hemoglobin 12.2 g/dL (14.0-18.0); Mean Corpuscular Hemoglobin 33.2 pg (25-34); Mean Corpuscular Volume 100.8 fL (80-100); Mean Platelet Volume 11.3 fL (7.4-10.4); Platelet Count 238 K/uL (130-400); RDW Coefficient of Variation 19.4 % (11.5-14.5); RDW Standard Deviation 71.8 fL (36.4-46.3); Red Blood Count 3.67 M/uL (4.7-6.1); White Blood Count 8.58 K/uL (4.8-10.8)
[2021-09-14] MEDS: INSULIN ASPART PER UNIT SC SCH ×2 (09:20→12:25)
[2021-09-14 09:38] LABS: Albumin Globulin Ratio 1.1 (0.9-2); Albumin Level 2.9 gm/dl (3.4-5.0); BUN Creatinine Ratio 15.3 (10-20); Bilirubin,Total 3.8 mg/dl (0.2-1.0); C Reactive Protein 5.33 mg/dl (0-0.5); Est GFR (African American) 33.9 ml/min; Est GFR (Non-African American) 29.2 ml/min; Globulin 2.6 gm/dl (2.5-4.0); Potassium 3.7 mmol/L (3.5-5.1); Total Protein 5.5 gm/dl (6.0-8.3)
--- NOTE | 2021-09-22 10:23 | Discharge Summary ---
Date of Service september 14, 2021 Admission HPI Per Admitting Provider 86-year-old gentleman with a past medical history of CAD, CHF, atrial fibrillation not anticoagulated due to fall risk, CKD, TIA that was recently discharged from [facility] to [facility] for weakness and elevated LFTs presented to the ED for cough and weakness. History obtained from patient and son at bedside. Pt said that he has been having a dry cough for about 2 days. He said that he is not having any SOB or fever. He said that he has been very tired and weak that he has not been able to participate in therapy. Patient is vaccinated for COVID. Denies any chest pain, palpitation, dizziness, SOB and fever. Admission Exam Per Admitting Provider General- No acute distress Head- atraumatic Eyes- PERRL, EOMI, ENT- oropharynx clear Neck- supple, no JVD Lungs- clear to auscultation Heart- regular rhythm; no murmur Abdomen- normal bowel sounds, soft, no tenderness Extremities- no calf tenderness Neuro- alert, oriented x 3; PERRL, EOMI; no facial palsy; no dysarthria Skin- warm & dry Principal Diagnosis COVID-19: Elevated procalcitonin Weakness Transaminitis: Elevated troponin: CAD (coronary artery disease): Ischemic cardiomyopathy: CKD (chronic kidney disease) stage 4, GFR 15-29 ml/min: Tachy-pablo syndrome: ICD (implantable cardioverter-defibrillator) in place: Pacemaker: Device interrogation was done during last admission DM type 2 (diabetes mellitus, type 2): Discharge Exam General- No acute distress Head- atraumatic Eyes- PERRL, EOMI, ENT- oropharynx clear Neck- supple, no JVD Lungs- clear to auscultation Heart- regular rhythm; no murmur Abdomen- normal bowel sounds, soft, no tenderness Extremities- no calf tenderness, left knee tenderness Neuro- alert, oriented x 3; PERRL, EOMI; no facial palsy; no dysarthria Skin- warm & dry Discharge Data Allergies Allergy/AdvReac Type Severity Reaction Status Date / Time procaine [From Novocain] Allergy Intermediate Fever Verified 08/31/21 14:12 tamsulosin [From Flomax] AdvReac Severe Fainting Verified 08/26/21 15:12 amlodipine AdvReac Mild INSOMNIA Verified 08/26/21 15:12 Fibrate Anti-Lipidemics AdvReac Unknown NECK PAIN Verified 08/31/21 14:12 Consultations 09/12/21 15:33 ED Decision to Admit Stat Ordered Studies XR chest 1V portable CLINICAL HISTORY: cough, cp. COMPARISON STUDY: 08/26/2021 TECHNIQUE: 1 view of the chest FINDINGS: Single frontal view of the chest demonstrates the heart to again be enlarged status post previous cardiothoracic surgery and ICD placement The lungs are clear of alveolar opacities. There is no evidence for pleural effusion. There is no evidence for vascular congestion. There is no acute osseous pathology. IMPRESSION: 1. No acute cardiopulmonary disease. ACT 112: Negative or not required by law. Electronically signed by: Samir Umana M.D. 09/12/2021 12:59 PM Dictated:09/12/211257 Transcribed: 09/12/211257 Hospital Course (1) COVID-19: Present on admission with cough and weakness Testing positive for COVID 19 CXR showed no acute cardiopulmonary abnormality Pt does not meet criteria for Steroid and Remdesivir since he is saturated well on RA Elevated ESR of 24, CRP 6.37 and procalcitonin 0.69 Discussed with son about steroid if pt becomes hypoxia, Son will not want to start on any steroid Spoke to today and she said she will be ok to try a different steroid other than the prednisone if pt meets criteria for steroid therapy for the covid 19 Continue incentive spirometry and flutter valve Will monitor ESR, CRP and procalcitonin in am Overnight pulse oximetry done last night an pt will require 2L NC @ HS Continue monitor closely Elevated procalcitonin Possible related to elevate creatinine vs bacterial infection WBC normal and afebrile CXR showed no infiltrate Will hold on abx for now Repeat procalcitonin trending down while pt has not been on abx If patient became febrile, will start on IV abx Continue monitor Weakness Patient's advanced age and multiple comorbid conditions likely contributing to his generalized weakness Pt was transferred to rehab due to the weakness (not new) Continue PT/OT Fall precaution Will talk to rn field case manager to transfer to rehab Plan to transfer to rehab Transaminitis: AST 101, ALT 105 and ALK 651 on admission Liver enzymes trending down slowly with AST 93, ALT [address] ABD/pelvis during last admission showed the gallbladder is distended and there are numerous small calcified gallstones. There is minimal pericholecystic infiltration. EUS during last admission showed gallstones and sludge, CBD was not dilated, there was a questionable choledocholithiasis however Liver biopsy was obtained to r/o other etiologies of elevated LFTs. ERCP during last admission showed sphincterotomy performed and the duct was swept and only minimal sludge removed, no stones seen. 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: Continue home dose of furosemide Continue ASA, beta-corky, nitrate CKD (chronic kidney disease) stage 4, GFR 15-29 ml/min: Baseline creatinine mid 2s- low 3s Creatinine 2.04 today Continue monitor BMP Stable Tachy-pablo syndrome: ICD (implantable cardioverter-defibrillator) in place: Pacemaker: Device interrogation was done during last admission TIA (transient ischemic attack): Continue ASA, statin discontinued due to transaminitis Will continue to hold statin for now DM type 2 (diabetes mellitus, type 2): Most recent Hgb A1c 9.2 on 07/2021 NovoLog per protocol while hospitalized BS has been control might be due to diet in the hospital Continue to hold on Basaglar on discharge, but once BS starts to elevate will resume it and titrate it slowly Will resume PO diabetes med on discharge DVT px on heparin subq CODE status DNR Total Time Total Time Spent Total Time Spent (In Minutes): 35 minutes Discharge Plan Discharge Items Patient Disposition: Transfer Inpatient Rehab Fac Reason For Visit: COUGH,COVID19 Discharge Diagnosis: COVID-19: Elevated procalcitonin Weakness Transaminitis: Elevated troponin: CAD (coronary artery disease): Ischemic cardiomyopathy: CKD (chronic kidney disease) stage 4, GFR 15-29 ml/min: Tachy-pablo syndrome: ICD (implantable cardioverter-defibrillator) in place: Pacemaker: Device interrogation was done during last admission DM type 2 (diabetes mellitus, type 2): Activity: Resume your previous activity Non-emergency contact: Primary Care Provider and Dry Man Call non-emergency contact if: you have any medication questions Follow-up/Referrals: Blanca Orellana MD [Primary Care Provider] - Diet: Carb Consistent or DM2 Addtl Attending Provider Instructions: Follow up with your primary care provider once discharge from rehab Follow up outpatient with gastroenterology Your provider will place a referral for hepatology evaluation for the management of the Autoimmune hepatitis Check LFT in 1 week to monitor your liver enzymes Continue physical and occupational therapy Continue monitor blood sugar closely and if it starts to elevate,your provider will resume the Basaglar and titrate it Seek medical attention if your symptoms worsening or develop any fever or shortness of breath Fall precaution Continue oxygen supplement at night with 2L nasal canula If patient develop any urinary retention, please check bladder scan. Ok to straight cath or place a Maldonado catheter if bladder scan showed greater than 400cc Home Isolation COVID-19 Instructions The following information about Home Isolation is from the CDC Website: https://www.cdc.gov/coronavirus/2019-ncov/hcp/aumjwayc-uvfxjdp-sitttk.html Stay home except to get medical care People who are mildly ill with COVID-19 are able to isolate at home during their illness. You should restrict activities outside your home, except for getting medical care. Do not go to work, school, or public areas. Avoid using public transportation, ride-sharing, or taxis. Separate yourself from other people and animals in your home People: As much as possible, you should stay in a specific room and away from other people in your home. Also, you should use a separate bathroom, if available. Animals: You should restrict contact with pets and other animals while you are sick with COVID-19, just like you would around other people. Although there have not been reports of pets or other animals becoming sick with COVID-19, it is still recommended that people sick with COVID-19 limit contact with animals until more information is known about the virus. When possible, have another member of your household care for your animals while you are sick. If you are s ick with COVID-19, avoid contact with your pet, including petting, snuggling, being kissed or licked, and sharing food. If you must care for your pet or be around animals while you are sick, wash your hands before and after you interact with pets and wear a face mask. Call ahead before visiting your doctor If you have a medical appointment, call the healthcare provider and tell them that you have or may have COVID-19. This will help the healthcare providers office take steps to keep other people from getting infected or exposed. Wear a face mask You should wear a face mask when you are around other people (e.g., sharing a room or vehicle) or pets and before you enter a healthcare providers office. If you are not able to wear a face mask (for example, because it causes trouble breathing), then people who live with you should not stay in the same room with you, or they should wear a face mask if they enter your room. Cover your coughs and sneezes Cover your mouth and nose with a tissue when you cough or sneeze. Throw used tissues in a lined trash can. Immediately wash your hands with soap and water for at least 20 seconds or, if soap and water are not available, clean your hands with an alcohol-based hand jacquard twine polisher operator that contains at least 60% alcohol. Clean your hands often Wash your hands often with soap and water for at least 20 seconds, especially after blowing your nose, coughing, or sneezing; going to the bathroom; and before eating or preparing food. If soap and water are not readily available, use an alcohol-based hand jacquard twine polisher operator with at least 60% alcohol, covering all surfaces of your hands and rubbing them together until they feel dry. Soap and water are the best option if hands are visibly dirty. Avoid touching your eyes, nose, and mouth with unwashed hands. Avoid sharing personal household items You should not share dishes, drinking glasses, cups, eating utensils, towels, or bedding with other people or pets in your home. After using these items, they should be washed thoroughly with soap and water. Clean all high-touch surfaces everyday High touch surfaces include counters, tabletops, doorknobs, bathroom fixtures, toilets, phones, keyboards, tablets, and bedside tables. Also, clean any surfac es that may have blood, stool, or body fluids on them. Use a household cleaning spray or wipe, according to the label instructions. Labels contain instructions for safe and effective use of the cleaning product including precautions you should take when applying the product, such as wearing gloves and making sure you have good ventilation during use of the product. Monitor your symptoms Seek prompt medical attention if your illness is worsening (e.g., difficulty breathing).Beforeseeking care, call your healthcare provider and tell them that you have, or are being evaluated for, COVID-19. Put on a face mask before you enter the facility. These steps will help the healthcare providers office to keep other people in the office or waiting room from getting infected or exposed. Ask your healthcare provider to call the local or state health department. Persons who are placed under active monitoring or facilitated self- monitoring should follow instructions provided by their local health department or occupational health professionals, as appropriate. When working with your local health department check their available hours. If you have a medical emergency and need to call 911, notify the dispatch personnel that you have, or are being evaluated for COVID-19. If possible, put on a face mask before emergency medical services arrive. Discontinuing home isolation Patients with confirmed COVID-19 should remain under home isolation precautions until the risk of secondary transmission to others is thought to be low. The decision to discontinue home isolation precautions should be made on a [id number] basis, in consultation with healthcare providers and state and [facility] health departments. Coronavirus disease 2019 (COVID-19) is a virus that causes a respiratory illness. It is caused by a coronavirus called 2019 novel coronavirus (2019- nCoV). There are many types of coronavirus. Coronaviruses are a very common cause of bronchitis. They may sometimes cause lung infection(pneumonia). Symptoms can range from mild to severe respiratory illness. These viruses are also foundin some animals. COVID-19 was first found in people in [facility], in late 2019. In 2020, several cases of COVID-19 have been confirmed in the [place] Public health officials are working to find the source. How the virus spreads is not yet fully known. It may be spread through droplets of fluid that a person coughs or sneezes into the air. It may be spread if you touch a surface with virus on it, such as a handle or object, and then touch your mouth. What are the symptoms of COVID-19? Some people have no symptoms or mild symptoms. Symptoms may appear 2 to 14 days after contact with the virus. Symptoms can include: Fever Coughing Trouble breathing What are possible complications from COVID-19? In many cases, this virus can cause infection (pneumonia) in both lungs. In some cases, this can cause . How is COVID-19 diagnosed? Your healthcare provider will ask about your symptoms. He or she will also ask about your recent travel and contact with sick people. Testing for the virus is only done through the CDC. If yourhealthcare provider thinks you may have COVID- 19, he or she will work with your local health department and the CDC on testing. Follow all instructions from your healthcare provider. COVID-19 is diagnosed by: Nasal and throat swab. A cotton-tipped swab is wiped inside your nose or throat. This is done to check for viruses in your nasal mucus. Sputum culture. A small sample of mucus coughed from your lungs (sputum) is collected if you have a cough. It is checked for the virus. How is COVID-19 treated? There is currently no medicine to treat the virus. Treatment is done to help your body while it fights the virus. This is known as supportive care. Supportive care may include: Pain medicine. These include acetaminophen and ibuprofen. They are used to help ease pain and reduce fever. Bed rest. This helps your body fight the illness. For severe illness, you may need to stay in the hospital. Care during severe illness may include: IV (intravenous) fluids.These are given through a vein to help keep your body hydrated. Oxygen. Supplemental oxygen or ventilation with a breathing machine (ventilator) may be given. This is done to keep enough oxygen in your body. Are you at risk for COVID-19? If youve been to a place where people have been sick with this virus, you are at risk for infection. You are at risk if you: Recently traveled to an affected area Had contact with a sick person who recently traveled to this area Had contact with a person who was diagnosed with COVID-19 How can COVID-19 be prevented? There is no vaccine yet. The best prevention is to not have contact with the virus. The CDC advises that people should not travel to areas where there are COVID-19 outbreaks right now for any reason that is not urgent. To help prevent spreading the infection, wash your hands often, or use an alcohol-basedhand jacquard twine polisher operator. If you are in an area with COVID-19: Wash your hands often. Or use an alcohol-based hand jacquard twine polisher operator often. Only touch your eyes, nose, or mouth with clean hands. Dont have contact with people who are sick. Follow local instructions about being in public. For example, you may be told to not use public transport for a period of time. Stay away from markets that have live or animals. Wash your hands after touching any animals. Don't touch animals that may be sick. Dont share eating or drinking tools with sick people. Dont kiss someone who is sick. Clean surfaces often with disinfectant. If you were in an area with COVID-19 in the last 14 days: Call your healthcare provider. He or she can talk with local health staff to see what action may be needed. Follow all instructions from your provider. Take your temperature every morning and evening for at least 14 days. This is to check for fever. Keep a record of the readings. Keep watch for symptoms of the virus. Tell your provider right away if you have symptoms. If you were in an area with COVID-19 and have a fever or other symptoms: Dont panic. Keep in mind that other illnesses can cause similar symptoms. Stay away from work, school, and public places. Limit physical contact with family members. Don't kiss anyone or share eating or drinking utensils. Clean surfaces you touch with disinfectant. This is to help prevent the virus from spreading. Call your healthcare provider. Explain that you have been exposed to COVID-19 and have symptoms. Do this before going to any hospital. Wait for instructions. Keep in mind that healthcare staff may wear protective equipment such as masks, gowns, gloves, and eye protection. You may be put in a separate room. This is to prevent the possible virus from spreading. Tell the healthcare staff about recent travel. This includes local travel on public transport. Staff may need to find other people you have been in contact with. Follow all instructions the healthcare staff give you. If you have been diagnosed with COVID-19 Follow all instructions from your healthcare provider. Dont leave your home, except to get medical care. Call your healthcare providers office before going. They can prepare and give you instructions. This will help prevent the virus from spreading. Dont go to work, school, or public areas. Dont use public transport or taxis. Stay away from other people in your home. Have them wear face masks around you. Dont share household items or food. Wear a face mask if you can. This includes at home or in a medical facility. Cover your face with a tissue when you cough or sneeze. Throw the tissue away. Wash your hands. Wash your hands often. Caregivers should: Follow all instructions from healthcare staff. Wear a face mask and protective clothing as advised. Wash hands often. Keep track of the sick persons symptoms. Clean surfaces, fabrics, and laundry thoroughly. Keep other people away from the sick person. When to call your healthcare provider Call your healthcare provider: If youve recently traveled and have symptoms If you have been diagnosed with COVID-19 and your symptoms are worse To learn more To find out more about COVID-19, visit the CDC website at www.cdc.gov/coronavirus/2019-ncov/index.html. 3339-0004 [employer]. [address] [place] [address]. All rights reserved. This information is not intended as a substitute for professional medical care. Always follow your healthcare professional's instructions. This information has been adapted from [employer] Pending Studies at Discharge: No Stand-Alone Forms: My [facility] Skilled Items Patient informed of condition?: Yes DNR: Yes Discharge Level of Care: Acute rehab Communicable Disease: Yes (COVID 19) Discharge Prognosis: Stable Lines: None Urinary Catheter: No Medications and DC Order Prescriptions: New guaifenesin 200 mg Tablet 200 mg PO TID PRN (Reason: cough) Qty: 21 RF: 0 Continued metoprolol succinate 100 mg Tablet Extended Release 24 Hr 100 mg PO QAM RF: 0 gabapentin 400 mg Capsule 400 mg PO HS RF: 0 allopurinol 100 mg Tablet 200 mg PO DAILY RF: 0 aspirin 81 mg Tablet,Delayed Release (Dr/Ec) 81 mg PO Q OTHER DAY RF: 0 cyanocobalamin (vitamin B-12) 500 mcg Tablet 1,000 mcg PO QAM RF: 0 levothyroxine 125 mcg Tablet 125 mcg PO DAILY@0600 RF: 0 repaglinide 1 mg tablet 0 mg PO TIDM RF: 0 Januvia 25 mg tablet 25 mg PO DAILY RF: 0 furosemide 40 mg tablet 40 mg PO DAILY RF: 0 triamcinolone acetonide 0.1 % Cream 1 applic TOPICAL BID RF: 0 isosorbide mononitrate 60 mg tablet extended release 24 hr 30 mg PO QAM RF: 0 Discharge Orders: Discharge Order (Routine); Ordered 09/14/21 Ordered By: Davian Cervantes Admission Data Admit Date/Time: 09/12/21 17:28 Attending Provider: Davian Cervantes Admit Provider: Davian Cervantes Primary Care Provider: Blanca Orellana Other Providers: Davian Cervantes ; [facility] Other Interventions: Discharge Summary Assessment (RN) Last Done: 09/14/21 15:46
== END 2021-09-14 16:47 | DRG 178 ==
LOC: ED 12:24 → 2S 17:28

== ENCOUNTER 2021-10-11 16:05 | Inpatient (IN) ==
--- NOTE | 2021-10-11 16:19 | Emergency Department Note ---
History of Present Illness General Chief complaint: Weakness Time Seen by Provider: 10/11/21 16:11 Source: patient Mode of arrival: ambulatory Limitations: altered mental status History of Present Illness Provider complaint: Fatigue, confusion Treatments prior to arrival: none This is an 86-year-old male presents emergency department due to increased weakness and confusion. Patient states he is here because he has pain in his left leg and left knee but states he has had this previously. Patient unable to provide any additional history. He denies any pain, nausea, vomiting, trouble breathing, chest pain, or headaches. Patient is able to bend both legs although states he does have pain in the knee with movement of the left lower extremity. Pt seen during a time of high acuity and national emergency pandemic while wearing PPE. Home Medications Medication Instructions Recorded Confirmed Type allopurinol 100 mg tablet 200 mg PO DAILY 10/20/18 10/11/21 History aspirin 81 mg tablet,delayed 81 mg PO Q OTHER DAY 10/20/18 10/11/21 History release cyanocobalamin (vitamin B-12) 500 1,000 mcg PO QAM 10/20/18 10/11/21 History mcg tablet gabapentin 400 mg capsule 400 mg PO HS 10/20/18 10/11/21 History levothyroxine 125 mcg tablet 125 mcg PO DAILY@0600 10/20/18 10/11/21 History metoprolol succinate 100 mg 100 mg PO QAM 10/20/18 10/11/21 History tablet,extended release 24 hr sitagliptin 25 mg tablet (Januvia) 25 mg PO DAILY 07/22/21 10/11/21 History furosemide 40 mg tablet 40 mg PO DAILY 08/26/21 10/11/21 History isosorbide mononitrate 60 mg 30 mg PO QAM 08/26/21 10/11/21 History tablet,extended release 24 hr triamcinolone acetonide 0.1 % 1 applic TOPICAL BID 08/26/21 10/11/21 History topical cream cephalexin 500 mg capsule 500 mg PO TID 10/11/21 10/11/21 History tramadol 50 mg tablet 50 mg PO TID PRN 10/11/21 10/11/21 History Allergies Allergy/AdvReac Type Severity Reaction Status Date / Time procaine [From Novocain] Allergy Intermediate Fever Verified 10/11/21 20:10 tamsulosin [From Flomax] AdvReac Severe Fainting Verified 10/11/21 20:10 amlodipine AdvReac Mild INSOMNIA Verified 10/11/21 20:10 Fibrate Anti-Lipidemics AdvReac Unknown NECK PAIN Verified 10/11/21 20:10 Past Med/Surg History Medical History Benign prostatic hyperplasia with urinary obstruction CAD (coronary artery disease) Status post inferior wall myocardial infarction in 1980 Status post January 1997 coronary bypass grafting x 3, receiving a RUSS graft to the LAD, a saphenous vein graft to the ramus, and a SVG to the 1st obtuse marginal. CHB (complete heart block) pt admitted for elective upgrade to biv icd. Underwent procedure without any complications and monitored overnight CKD (chronic kidney disease) stage 4, GFR 15-29 ml/min Diabetes DM type 2 (diabetes mellitus, type 2) Gout High cholesterol History of atrial fibrillation PAF HTN (hypertension) Hyperlipidemia Hypothyroidism ICD (implantable cardioverter-defibrillator) battery depletion Status post dual chamber pacemaker defibrillator implantation on March 11, 2004, generator exchanges on 07/09/2009, and November 11, 2014 using a [employer] Systemsa XT [id number] device. Status post December 19, 2018 upgrade from a dual chamber implantable cardiac defibrillator to a biventricular rate responsive implantable cardiac d efibrillator by Dr. Basurto at [facility]. Ischemic cardiomyopathy PPM upgraded to BiV ICD Osteoarthritis Pacemaker Stage 4 chronic kidney disease Baseline creatinine 2.4-2.8 range per records Systolic heart failure TIA (transient ischemic attack) Transient ischemic attack (TIA) 2014 Urinary urgency V tach Hx Surgical History History of cardiac cath History of colonoscopy History of eye surgery History of implantable cardiac defibrillator (ICD) History of tonsillectomy History of tooth extraction History of transurethral resection of prostate TURP (02/20/18): LMA#4 (iGel) at [facility] Hx of CABG CABG x3 (1996)- RUSS-LAD, SVG-RAMUS, SVG TO OM1 Hx of transurethral resection of prostate ICD (implantable cardioverter-defibrillator) in place Implanted (2003); Generator change (2009) Family History Brother Prostate cancer Diabetes Coronary heart disease Mother Diabetes Stroke Coronary heart disease Father Stroke Social History Smoking Status: Unknown if ever smoked Second Hand Exposure: No; Do You Dip or Chew Tobacco: No; Tobacco Cessation Education Requested by Patient: No Hx Alcohol Use: No Hx Substance Use: No Preferred Language: Citizen Of [place] Communication Ability: Effective Sales Porter Required: No Beliefs That Will Affect Care: None marital status: Current Living Situation: Spouse and Family How many Children do You have: 4 Other Information That Helps Us Care for You: No Feels Safe at Home: Yes Safety Concerns: Feels Safe At This Time Assistive Devices: Cane and Walker Assistive Devices Comment: may need a bedside commode Review of Systems A total of 10 systems reviewed and were otherwise negative All systems reviewed & are unremarkable except as noted in HPI & below Physical Exam Vital Signs Vital Signs - 24 hr 10/11/21 16:34 10/11/21 16:40 10/11/21 16:50 Pulse Rate 60 60 60 Pulse Rate from SpO2 Sensor Pulse Rhythm Respiratory Rate 21 13 24 Respiratory Effort / Characteristics Non-Labored Respiratory Depth Normal Blood Pressure 141/71 H Blood Pressure Mean 94 Blood Pressure Position Sitting Pulse Oximetry 99 96 95 Oxygen Delivery Method Room Air Room Air Room Air Sepsis Recent Fever Within 48 Hours No Sepsis New/Unexplained Change in Mental Status Yes Sepsis Action Taken by Nursing Physician Notified 10/11/21 16:56 10/11/21 17:00 10/11/21 17:10 Pulse Rate 60 60 60 Pulse Rate from SpO2 Sensor Pulse Rhythm Regular Respiratory Rate 21 23 19 Respiratory Effort / Characteristics Respiratory Depth Blood Pressure Blood Pressure Mean Blood Pressure Position Pulse Oximetry 95 96 96 Oxygen Delivery Method Room Air Room Air Room Air Sepsis Recent Fever Within 48 Hours Sepsis New/Unexplained Change in Mental Status Sepsis Action Taken by Nursing 10/11/21 17:20 10/11/21 17:30 10/11/21 17:44 Pulse Rate 60 60 65 Pulse Rate from SpO2 Sensor Pulse Rhythm Respiratory Rate 14 16 16 Respiratory Effort / Characteristics Respiratory Depth Blood Pressure Blood Pressure Mean Blood Pressure Position Pulse Oximetry 97 98 Oxygen Delivery Method Room Air Room Air Sepsis Recent Fever Within 48 Hours Sepsis New/Unexplained Change in Mental Status Sepsis Action Taken by Nursing 10/11/21 17:50 10/11/21 18:00 10/11/21 18:10 Pulse Rate 60 60 60 Pulse Rate from SpO2 Sensor Pulse Rhythm Respiratory Rate 20 13 15 Respiratory Effort / Characteristics Respiratory Depth Blood Pressure Blood Pressure Mean Blood Pressure Position Pulse Oximetry 95 95 Oxygen Delivery Method Room Air Room Air Sepsis Recent Fever Within 48 Hours Sepsis New/Unexplained Change in Mental Status Sepsis Action Taken by Nursing 10/11/21 18:20 10/11/21 18:30 10/11/21 18:33 Pulse Rate 60 60 Pulse Rate from SpO2 Sensor 60 60 Pulse Rhythm Respiratory Rate 15 20 Respiratory Effort / Characteristics Respiratory Depth Blood Pressure Blood Pressure Mean Blood Pressure Position Pulse Oximetry 96 96 95 Oxygen Delivery Method Room Air Room Air Sepsis Recent Fever Within 48 Hours Sepsis New/Unexplained Change in Mental Status Sepsis Action Taken by Nursing 10/11/21 18:45 10/11/21 19:00 10/11/21 19:15 Pulse Rate 60 60 60 Pulse Rate from SpO2 Sensor 60 60 60 Pulse Rhythm Respiratory Rate 10 L 14 21 Respiratory Effort / Characteristics Respiratory Depth Blood Pressure Blood Pressure Mean Blood Pressure Position Pulse Oximetry 100 96 95 Oxygen Delivery Method Sepsis Recent Fever Within 48 Hours Sepsis New/Unexplained Change in Mental Status Sepsis Action Taken by Nursing 10/11/21 19:30 10/11/21 19:45 10/11/21 20:04 Pulse Rate 60 60 67 Pulse Rate from SpO2 Sensor 60 60 Pulse Rhythm Respiratory Rate 15 12 16 Respiratory Effort / Characteristics Respiratory Depth Blood Pressure Blood Pressure Mean Blood Pressure Position Pulse Oximetry 96 96 Oxygen Delivery Method Sepsis Recent Fever Within 48 Hours Sepsis New/Unexplained Change in Mental Status Sepsis Action Taken by Nursing 10/11/21 20:05 10/11/21 20:15 10/11/21 20:30 Pulse Rate 64 60 60 Pulse Rate from SpO2 Sensor 64 60 60 Pulse Rhythm Respiratory Rate 13 19 14 Respiratory Effort / Characteristics Respiratory Depth Blood Pressure 141/69 H 128/68 Blood Pressure Mean 93 88 Blood Pressure Position Pulse Oximetry 96 98 96 Oxygen Delivery Method Sepsis Recent Fever Within 48 Hours Sepsis New/Unexplained Change in Mental Status Sepsis Action Taken by Nursing 10/11/21 20:45 Pulse Rate 61 Pulse Rate from SpO2 Sensor 60 Pulse Rhythm Respiratory Rate 20 Respiratory Effort / Characteristics Respiratory Depth Blood Pressure Blood Pressure Mean Blood Pressure Position Pulse Oximetry 97 Oxygen Delivery Method Sepsis Recent Fever Within 48 Hours Sepsis New/Unexplained Change in Mental Status Sepsis Action Taken by Nursing GENERAL: alert, well appearing, well nourished, no distress, non-toxic EYE EXAM: normal conjunctiva, PERRL and EOM's grossly intact OROPHARYNX: no exudate, no erythema, lips, buccal mucosa, and tongue normal and mucous membranes are moist NECK: supple, no nuchal rigidity, no adenopathy, non-tender LUNGS: Clear to auscultation. Normal chest wall mechanics, no w/r/r HEART: no murmurs, S1 normal and S2 normal, scar noted left anterior superior chest wall, palpable pacemaker ABDOMEN: abdomen soft, non-tender, normo-active bowel sounds, no masses, no rebound or guarding. BACK: Back is symmetrical on inspection and there is no deformity, no midline tenderness, no CVA tenderness. SKIN: no rashes and no bruising UPPER EXTREMITIES: upper extremities are grossly normal. FROM, nml pulses b/l. LOWER EXTREMITIES: No pitting edema. FROM, nml pulses b/l. Pain with range of motion testing of the left knee. No effusions, no evidence of trauma or deformity. NEURO EXAM: Normal sensorium, cranial nerves II-XII grossly intact, normal speech, no gross weakness of arms, no gross weakness of legs. Gross sensation intact. Course Course 1849: Family is now arrived at bedside and provides additional history given patient's confusion. Patient has had several hospitalizations over the last several months. Family believes this all started originally following a fall back in June. Patient has been home from [facility] for the last 3 weeks. states he initially was improving with home PT/OT and had a better appetite, however over the last 2 weeks he has continued to decline, becoming more confused, increasingly weak, and having worsening knee pain. Administered Medications Acetaminophen (Acetaminophen 325 Mg Tab) 650 mg PO Q4H PRN PRN Reason: Pain or Fever Stop: 11/10/21 23:52 Last Admin: 10/12/21 21:41 Dose: 650 mg Documented by: [id number] Admin: 10/12/21 12:11 Dose: 650 mg Documented by: [id number] Allopurinol (Allopurinol 100 Mg Tab) 200 mg PO DAILY [facility] Stop: 11/11/21 08:59 Last Admin: 10/12/21 09:03 Dose: 200 mg Documented by: [id number] Aspirin (Aspirin 81 Mg Ectab) 81 mg PO Q2D@0900 [facility] Stop: 11/11/21 08:59 Last Admin: 10/12/21 09:03 Dose: 81 mg Documented by: [id number] Cephalexin HCl (Cephalexin 500 Mg Cap) 500 mg PO BID [facility] Stop: 10/15/21 21:59 Last Admin: 10/12/21 21:17 Dose: 500 mg Documented by: [id number] Admin: 10/12/21 09:04 Dose: 500 mg Documented by: [id number] Cyanocobalamin (Cyanocobalamin (B-12) 500 Mcg Tablet) 1,000 mcg PO QAM [facility] Stop: 11/11/21 08:59 Last Admin: 10/12/21 09:04 Dose: 1,000 mcg Documented by: [id number] Diclofenac Sodium (Diclofenac Sod 1% Gel 100 Gm Tube) 2 gm EXT Q8H [facility]; Protocol Stop: 11/11/21 14:44 Last Admin: 10/12/21 21:19 Dose: 2 gm Documented by: [id number] Admin: 10/12/21 16:03 Dose: 2 gm Documented by: [id number] Furosemide (Furosemide 40 Mg Tab) 40 mg PO DAILY [facility] Stop: 11/11/21 08:59 Last Admin: 10/12/21 09:04 Dose: 40 mg Documented by: [id number] Gabapentin (Gabapentin 400 Mg Cap) 400 mg PO HS [facility] Stop: 11/10/21 23:52 Last Admin: 10/12/21 21:18 Dose: 400 mg Documented by: [id number] Admin: 10/12/21 01:39 Dose: 400 mg Documented by: [id number] Heparin Sodium (Porcine) (Heparin Sod 5,000 Unit/0.5 Ml Vial) 5,000 units SQ Q8 [facility] Stop: 11/10/21 23:52 Last Admin: 10/12/21 21:18 Dose: 5,000 units Documented by: [id number] Admin: 10/12/21 14:14 Dose: Not Given Documented by: [id number] Admin: 10/12/21 05:43 Dose: 5,000 units Documented by: [id number] Admin: 10/12/21 01:39 Dose: 5,000 units Documented by: [id number] Pantoprazole Sodium 40 mg/ (Dextrose) 100 mls @ 20 mls/hr IV Q5H [facility] Stop: 11/11/21 10:29 Last Admin: 10/12/21 20:58 Dose: 8 mg/hr, 20 mls/hr Documented by: [id number] Infusion: 10/12/21 20:58 Dose: 8 mg/hr, 20 mls/hr Documented by: [id number] Admin: 10/12/21 16:04 Dose: 8 mg/hr, 20 mls/hr Documented by: [id number] Infusion: 10/12/21 15:54 Dose: 8 mg/hr, 20 mls/hr Documented by: [id number] Admin: 10/12/21 10:54 Dose: 8 mg/hr, 20 mls/hr Documented by: [id number] Insulin Aspart (Insulin Aspart Per Unit) 0 units SC ACHS [facility] Stop: 11/11/21 07:29 Last Admin: 10/12/21 20:34 Dose: Not Given Documented by: [id number] Admin: 10/12/21 17:19 Dose: Not Given Documented by: [id number] Admin: 10/12/21 12:41 Dose: Not Given Documented by: [id number] Admin: 10/12/21 09:11 Dose: Not Given Documented by: [id number] Isosorbide Mononitrate (Isosorbide Casey Extended Rel 30 Mg Tabcr) 30 mg PO [facility] Stop: 11/11/21 08:59 Last Admin: 10/12/21 09:04 Dose: 30 mg Documented by: [id number] Levothyroxine Sodium (Levothyroxine Sodium 125 Mcg Tablet) 125 mcg PO DAILY@0600 [facility] Stop: 11/11/21 05:59 Last Admin: 10/12/21 05:43 Dose: 125 mcg Documented by: [id number] Metoprolol Succinate (Metoprolol Succ 50mg Ext Rel Tab) 100 mg PO [facility] Stop: 11/11/21 08:59 Last Admin: 10/12/21 09:05 Dose: 100 mg Documented by: [id number] Tramadol HCl (Tramadol Hcl 50 Mg Tablet) 50 mg PO TID PRN PRN Reason: Pain Stop: 11/10/21 23:52 Last Admin: 10/12/21 12:13 Dose: 50 mg Documented by: [id number] Triamcinolone Acetonide (Triamcinolone Acet 0.1% Cr 15 Gm Tube) 1 appln TOP BID [facility] Stop: 11/10/21 23:52 Last Admin: 10/12/21 21:19 Dose: 1 appln Documented by: [id number] Admin: 10/12/21 09:05 Dose: 1 appln Documented by: [id number] Admin: 10/12/21 01:39 Dose: 1 appln Documented by: [id number] Discontinued Medications Sodium Chloride (Nss 1000ml) 1,000 mls @ 50 mls/hr IV .Q20H [facility] Stop: 10/12/21 19:52 Last Infusion: 10/12/21 22:00 Dose: 0 mls/hr Documented by: [id number] Admin: 10/12/21 01:39 Dose: 50 mls/hr Documented by: [id number] Medical Decision Making Differential Diagnosis Differential diagnoses includes but is not limited to toxic, metabolic, infectious, traumatic, cardiac, neurologic, hematologic, psychiatric and inflammatory etiologies. Medical Records Attestation: I reviewed the patient's medical records. Home Medications Current Medication List: was personally reviewed by me Laboratory Data Attestation: I reviewed the patient's lab results. Result diagrams: 10/12/21 05:28 10/12/21 05:28 Lab Results 10/11/21 10/11/21 10/11/21 Range/Units 16:35 16:35 16:35 WBC 14.45 H (4.8-10.8) K/uL RBC 3.97 L (4.7-6.1) M/uL Hgb 13.3 L (14.0-18.0) g/dL Hct 40.2 L (42-52) % MCV 101.3 H (80-100) fL MCH 33.5 (25-34) pg MCHC 33.1 (32-36) g/dL RDW Std Deviation 63.3 H (36.4-46.3) fL RDW Coeff of Lorena 17.0 H (11.5-14.5) % Plt Count 328 (130-400) K/uL MPV 10.2 (7.4-10.4) fL Immature Gran % (Auto) 0.6 % Neut % (Auto) 58.3 % Lymph % (Auto) 24.8 % Casey % (Auto) 14.3 % Eos % (Auto) 1.9 % Baso % (Auto) 0.1 % Neut # (Auto) 8.42 H (1.4-6.5) K/uL Lymph # (Auto) 3.58 H (1.2-3.4) K/uL Casey # (Auto) 2.07 H (0.11-0.59) K/uL Eos # (Auto) 0.28 (0-0.5) K/uL Baso # (Auto) 0.02 (0-0.2) K/uL Immature Gran # (Auto) 0.08 H (0.00-0.02) K/uL PT Cancelled INR Cancelled Sodium 135 L (136-145) mmol/L Potassium 3.9 (3.5-5.1) mmol/L Chloride 98 (98-107) mmol/L Carbon Dioxide 27 (21-32) mmol/L Anion Gap 10 (3-11) BUN 26 H (6-23) mg/dl Creatinine 1.55 H (0.6-1.4) mg/dl Est Cr Clr Drug Dosing 54.2 ml/min Est GFR ( Amer) 46.9 ml/min Est GFR (Non-Af Amer) 40.5 ml/min BUN/Creatinine Ratio 16.8 (10-20) Glucose 111 H (70-99(Fasting)) mg/dl Lactate (0.4-2.0) mmol/L Calcium 10.3 H (8.5-10.1) mg/dl Magnesium 2.0 (1.7-2.4) mg/dl Total Bilirubin 3.2 H (0.2-1.0) mg/dl AST 22 (13-39) U/L ALT 14 (7-52) U/L Alkaline Phosphatase 352 H (34-104) U/L Troponin I High Sens 37.8 H D (0-20) pg/ml Total Protein 7.4 (6.0-8.3) gm/dl Albumin 3.6 (3.4-5.0) gm/dl Globulin 3.8 (2.5-4.0) gm/dl Albumin/Globulin Ratio 0.9 (0.9-2) Procalcitonin (0-0.5) ng/ml SARS-CoV-2 (PCR) (Negative) Influenza Type A (PCR) (Neg) Influenza Type B (PCR) (Neg) RSV (RT-PCR) (Neg) 06/20/22 06/20/22 06/20/22 Range/Units 16:35 17:37 19:18 WBC (4.8-10.8) K/uL RBC (4.7-6.1) M/uL Hgb (14.0-18.0) g/dL Hct (42-52) % MCV (80-100) fL MCH (25-34) pg MCHC (32-36) g/dL RDW Std Deviation (36.4-46.3) fL RDW Coeff of Lorena (11.5-14.5) % Plt Count (130-400) K/uL MPV (7.4-10.4) fL Immature Gran % (Auto) % Neut % (Auto) % Lymph % (Auto) % Casey % (Auto) % Eos % (Auto) % Baso % (Auto) % Neut # (Auto) (1.4-6.5) K/uL Lymph # (Auto) (1.2-3.4) K/uL Casey # (Auto) (0.11-0.59) K/uL Eos # (Auto) (0-0.5) K/uL Baso # (Auto) (0-0.2) K/uL Immature Gran # (Auto) (0.00-0.02) K/uL PT 11.7 INR 1.1 Sodium (136-145) mmol/L Potassium (3.5-5.1) mmol/L Chloride (98-107) mmol/L Carbon Dioxide (21-32) mmol/L Anion Gap (3-11) BUN (6-23) mg/dl Creatinine (0.6-1.4) mg/dl Est Cr Clr Drug Dosing ml/min Est GFR ( Amer) ml/min Est GFR (Non-Af Amer) ml/min BUN/Creatinine Ratio (10-20) Glucose (70-99(Fasting)) mg/dl Lactate 1.5 (0.4-2.0) mmol/L Calcium (8.5-10.1) mg/dl Magnesium (1.7-2.4) mg/dl Total Bilirubin (0.2-1.0) mg/dl AST (13-39) U/L ALT (7-52) U/L Alkaline Phosphatase (34-104) U/L Troponin I High Sens (0-20) pg/ml Total Protein (6.0-8.3) gm/dl Albumin (3.4-5.0) gm/dl Globulin (2.5-4.0) gm/dl Albumin/Globulin Ratio (0.9-2) Procalcitonin 0.25 (0-0.5) ng/ml SARS-CoV-2 (PCR) (Negative) Influenza Type A (PCR) (Neg) Influenza Type B (PCR) (Neg) RSV (RT-PCR) (Neg) 10/11/21 Range/Units 19:32 WBC (4.8-10.8) K/uL RBC (4.7-6.1) M/uL Hgb (14.0-18.0) g/dL Hct (42-52) % MCV (80-100) fL MCH (25-34) pg MCHC (32-36) g/dL RDW Std Deviation (36.4-46.3) fL RDW Coeff of Lorena (11.5-14.5) % Plt Count (130-400) K/uL MPV (7.4-10.4) fL Immature Gran % (Auto) % Neut % (Auto) % Lymph % (Auto) % Casey % (Auto) % Eos % (Auto) % Baso % (Auto) % Neut # (Auto) (1.4-6.5) K/uL Lymph # (Auto) (1.2-3.4) K/uL Casey # (Auto) (0.11-0.59) K/uL Eos # (Auto) (0-0.5) K/uL Baso # (Auto) (0-0.2) K/uL Immature Gran # (Auto) (0.00-0.02) K/uL PT INR Sodium (136-145) mmol/L Potassium (3.5-5.1) mmol/L Chloride (98-107) mmol/L Carbon Dioxide (21-32) mmol/L Anion Gap (3-11) BUN (6-23) mg/dl Creatinine (0.6-1.4) mg/dl Est Cr Clr Drug Dosing ml/min Est GFR ( Amer) ml/min Est GFR (Non-Af Amer) ml/min BUN/Creatinine Ratio (10-20) Glucose (70-99(Fasting)) mg/dl Lactate (0.4-2.0) mmol/L Calcium (8.5-10.1) mg/dl Magnesium (1.7-2.4) mg/dl Total Bilirubin (0.2-1.0) mg/dl AST (13-39) U/L ALT (7-52) U/L Alkaline Phosphatase (34-104) U/L Troponin I High Sens (0-20) pg/ml Total Protein (6.0-8.3) gm/dl Albumin (3.4-5.0) gm/dl Globulin (2.5-4.0) gm/dl Albumin/Globulin Ratio (0.9-2) Procalcitonin (0-0.5) ng/ml SARS-CoV-2 (PCR) POSITIVE A* (Negative) Influenza Type A (PCR) Negative (Neg) Influenza Type B (PCR) Negative (Neg) RSV (RT-PCR) Negative (Neg) Imaging Data Radiologist's Impression: Chest X-Ray 10/11/21 16:56 XR chest 1V portable CLINICAL HISTORY: SEPSIS. COMPARISON STUDY: 09/12/2021 TECHNIQUE: 1 view of the chest FINDINGS: Single frontal view of the chest demonstrates the heart to again be enlarged status post pacer placement and previous cardiothoracic surgery. Chronic blunting of the costophrenic angle as seen on the left which is most likely postsurgical in nature. The lungs are clear of alveolar opacities. There is no evidence for pleural effusion. There is no evidence for vascular congestion. There is no acute osseous pathology. IMPRESSION: 1. No acute cardiopulmonary disease. 2. There is no significant interval change. ACT 112: Negative or not required by law. Electronically signed by: Samir Umana M.D. 10/11/2021 5:[address] 10/11/21 16:56 CT head/brain wo con CLINICAL HISTORY: ams Technique: Contiguous axial CT images of the head were acquired from the base of the skull to the vertex without intravenous contrast administration. Images were viewed in brain, subdural and bone windows. Automated dose lowering techniques and/or adjustment according to patient size were utilized for this exam. Comparison: Comparison is made to CT head 08/26/2021 Findings: Areas of decreased attenuation are present in the periventricular and subcortical white matter bilaterally consistent with small vessel ischemic disease. Generalized cerebral atrophy with commensurate enlargement of the ventricles, sulci, and cisterns is also present. There is no acute intracranial hemorrhage or evidence of acute territorial infarction. No shift of the midline structures, mass effect, or extra-axial abnormalities are shown. Atherosclerotic calcifications are present in the intracranial segments of the internal carotid arteries. Imaged portions of the paranasal sinuses and mastoid air cells are clear. The orbits appear normal. There are no acute fractures of the calvaria or scalp swelling. Impression: No acute intracranial hemorrhage, no evidence of acute territorial infarction or other acute intracranial disease process. ACT 112: Negative or not required by law. Electronically signed by: Ron Denis M.D. 10/11/2021 5:[address] 10/11/21 19:09 CT knee LT wo con CLINICAL HISTORY: worsening pain TECHNIQUE: Multidetector row helical CT of the left knee was performed without intravenous contrast. Coronal and sagittal reformations were obtained. Automated dose lowering techniques and/or adjustment according to patient size were utilized for this examination. CT DOSE: 158.75 mGy.cm Comparison: Comparison is made to right knee radiograph 08/27/2021 FINDINGS: The osseous structures are without fracture or dislocation. Mild degenerative changes are seen. No joint effusion is seen. A fabella is incidentally seen. Vascular calcifications are seen. Superficial edema is seen in the anterior aspect of the knee IMPRESSION: No evidence of acute fracture or dislocation. Superficial edema is seen in the anterior aspect of the knee which is nonspecific, correlation with clinical exam is recommended.. ACT 112: Negative or not required by law. Electronically signed by: Ron Denis M.D. 10/11/2021 8:50 PM ECG Data Attestation: I personally reviewed and interpreted this ECG as follows: Indication: + altered mental status Rate (beats per minute): 62 Rhythm: + other ECG Intervals/blocks: + IVCD and + Prolonged QT ECG [place]: + Normal ECG ST segments: + Nonspecific ST abnormalities Additional Comments: paced MDM Narrative An order was placed for continuous cardiac monitoring. The monitor shows a rate of _68__ with _normal sinus_ rhythm. This is an 86-year-old male who presents emergency department due to increased confusion and weakness. Patient with recent admission as well as complaints of persistent knee pain. states he has begun to decline since coming home following a stay in inpatient rehab [address] head reassuring. Labs drawn and sent and were also reassuring. Prior knee x-rays were negative, due to concern for persistent pain patient was also sent for CT of the knee. COVID test was positive however this is likely left over from recent COVID infection approximately 1 month ago. Patient with mild leukocytosis of unknown etiology. Patient was started on gentle IV fluid rehydration as a precaution. Case d iscussed with hospitalist for additional evaluation and management. Impression & Plan Generalized weakness, Confusion, Knee pain, Ambulatory dysfunction Discharge Plan Visit Data Chief Complaint: Weakness ED Provider: Payal Feldman Discharge Problem: Generalized weakness, Confusion, Knee pain, Ambulatory dysfunction Patient Disposition: Admitted As Inpatient Discharge Instructions Interventions: ED Discharge Assessment Last Done: 10/11/21 22:49 Discharge Problem: Knee pain Qualifiers: Chronicity: chronic Laterality: left Qualified Code(s): M25.562 - Pain in left knee
[2021-10-11 17:07] LABS: Basophils # (auto) 0.02 K/uL (0-0.2); Basophils % (auto) 0.1 %; Eosinophils # (auto) 0.28 K/uL (0-0.5); Eosinophils % (auto) 1.9 %; Hematocrit (blood only) 40.2 % (42-52); Hemoglobin 13.3 g/dL (14.0-18.0); Immature Granulocytes # (auto) 0.08 K/uL (0.00-0.02); Immature Granulocytes % (auto) 0.6 %; Lymphocytes # (auto) 3.58 K/uL (1.2-3.4); Lymphocytes % (auto) 24.8 %; Mean Corpuscular Hemoglobin 33.5 pg (25-34); Mean Corpuscular Hgb Conc 33.1 g/dL (32-36); Mean Corpuscular Volume 101.3 fL (80-100); Mean Platelet Volume 10.2 fL (7.4-10.4); Monocytes # (auto) 2.07 K/uL (0.11-0.59); Monocytes % (auto) 14.3 %; Neutrophils # (auto) 8.42 K/uL (1.4-6.5); Neutrophils % (auto) 58.3 %; Platelet Count 328 K/uL (130-400); RDW Standard Deviation 63.3 fL (36.4-46.3); Red Blood Count 3.97 M/uL (4.7-6.1); White Blood Count 14.45 K/uL (4.8-10.8)
--- NOTE | 2021-10-11 17:13 | XRay Report ---
XR chest 1V portable CLINICAL HISTORY: SEPSIS. COMPARISON STUDY: 09/12/2021 TECHNIQUE: 1 view of the chest FINDINGS: Single frontal view of the chest demonstrates the heart to again be enlarged status post pacer placem ent and previous cardiothoracic surgery. Chronic blunting of the costophrenic angle as seen on the le ft which is most likely postsurgical in nature. The lungs are clear of alveolar opacities. There is n o evidence for pleural effusion. There is no evidence for vascular congestion. There is no acute osse ous pathology. IMPRESSION: 1. No acute cardiopulmonary disease. 2. There is no significant interval change. ACT 112: Negative or not required by law. Electronically signed by: Samir Umana M.D. 10/11/2021 5:12 PM
[2021-10-11 17:33] LABS: Potassium 3.9 mmol/L (3.5-5.1)
[2021-10-11 17:34] LABS: Albumin Globulin Ratio 0.9 (0.9-2); Albumin Level 3.6 gm/dl (3.4-5.0); BUN Creatinine Ratio 16.8 (10-20); Bilirubin,Total 3.2 mg/dl (0.2-1.0); Calcium 10.3 mg/dl (8.5-10.1); Creatinine Clr Calc Pharmacy 54.2 ml/min; Est GFR (African American) 46.9 ml/min; Est GFR (Non-African American) 40.5 ml/min; Globulin 3.8 gm/dl (2.5-4.0); Total Protein 7.4 gm/dl (6.0-8.3)
[2021-10-11 17:35] LABS: Troponin I High Sensitivity 37.8 pg/ml (0-20)
--- NOTE | 2021-10-11 17:56 | CT Scan Report ---
CT head/brain wo con CLINICAL HISTORY: ams Technique: Contiguous axial CT images of the head were acquired from the base of the skull to the adri tanisha without intravenous contrast administration. Images were viewed in brain, subdural and [facility]. Automated dose lowering techniques and/or adjustment according to patient size were utilized for this exam. Comparison: Comparison is made to CT head 08/26/2021 Findings: Areas of decreased attenuation are present in the periventricular and subcortical white matter bilate rally consistent with small vessel ischemic disease. Generalized cerebral atrophy with commensurate e nlargement of the ventricles, sulci, and cisterns is also present. There is no acute intracranial hem orrhage or evidence of acute territorial infarction. No shift of the midline structures, mass effect, or extra-axial abnormalities are shown. Atherosclerotic calcifications are present in the intracran ial segments of the internal carotid arteries. Imaged portions of the paranasal sinuses and mastoid air cells are clear. The orbits appear normal. There are no acute fractures of the calvaria or scalp swelling. Impression: No acute intracranial hemorrhage, no evidence of acute territorial infarction or other acute intracra nial disease process. ACT 112: Negative or not required by law. Electronically signed by: Ron Denis M.D. 10/11/2021 5:55 PM
[2021-10-11 20:02] LABS: INR 1.1 (0.9-1.1); Prothrombin Time 11.7 Seconds (9.0-12.0)
[2021-10-11 20:27] LABS: Influenza A virus by PCR Negative (Neg); Influenza B virus by PCR Negative (Neg); RSV by PCR Negative (Neg)
[2021-10-11 20:43] LABS: SARS CoV2 RNA(COVID-19) InHosp POSITIVE (Negative)
--- NOTE | 2021-10-11 20:53 | CT Scan Report ---
CT knee LT wo con CLINICAL HISTORY: worsening pain TECHNIQUE: Multidetector row helical CT of the left knee was performed without intravenous contrast. Coronal and sagittal reformations were obtained. Automated dose lowering techniques and/or adjustment according to patient size were utilized for this examination. CT DOSE: 158.75 mGy.cm Comparison: Comparison is made to right knee radiograph 08/27/2021 FINDINGS: The osseous structures are without fracture or dislocation. Mild degenerative changes are seen. No chriss int effusion is seen. A fabella is incidentally seen. Vascular calcifications are seen. Superficial edema is seen in the anterior aspect of the knee IMPRESSION: No evidence of acute fracture or dislocation. Superficial edema is seen in the anterior aspect of the knee which is nonspecific, correlation with clinical exam is recommended.. ACT 112: Negative or not required by law. Electronically signed by: Ron Denis M.D. 10/11/2021 8:50 PM
[2021-10-11 23:16] LABS: Appearance Urine Clear (Clear); Bilirubin Urine Negative (Negative); Blood Urine Negative (Negative); Color Urine Dark Yellow; Glucose Urine UA Negative (Negative); Ketones Urine Negative (Negative); Leukocyte Esterase Urine Negative (Negative); Nitrite Urine Negative (Negative); Protein Urine Negative (Negative); Specific Gravity Urine 1.015 (1.000-1.030); Urobilinogen Urine Negative (Negative); pH Urine 5.5 (4.5-7.5)
[2021-10-11] MEDS ORDERED: POLYETHYLENE (MIRALAX) 17 GM PACK PO PRN (23:53)
[2021-10-11] MEDS ORDERED: NITROGLYCERIN SL 0.4 MG/TAB TAB SL PRN (23:53)
[2021-10-11] MEDS ORDERED: SODIUM CHLORIDE 0.9% 1000ML 1,000 ML IV SCH (23:53)
--- NOTE | 2021-10-12 00:11 | History and Physical Report ---
DATE OF ADMISSION: 10/11/2021. CHIEF COMPLAINT: Weakness, ambulatory dysfunction. HISTORY OF PRESENT ILLNESS: This is an 86-year-old male with past medical history significant for type 2 diabetes, hypothyroidism, hyperlipidemia, interstitial lung disease, history of CAD, history of chronic systolic CHF, chronic kidney disease stage IV, persistent atrial fibrillation, history of paroxysmal VT, history of ICD placement, history of hypertension, protein calorie malnutrition, neurogenic bladder, BPH, displacement of cervical disk without myelopathy, history of gout, history of CABG, spinal stenosis. Presents from home because of weakness, ambulatory dysfunction, orthostatics, left knee pain, poor appetite. The patient was here in the hospital in August of this year a couple of times. During first admission, he was evaluated for transaminitis. GI did endoscopic ultrasound that showed gallstones and sludge. CBD was dilated, there is questionable cholelithiasis. ERCP done with sphincterectomy performed and the duct was stripped and only minimal sludge removed, no stones seen. 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 He has also had a syncopal episode thought to be from postural hypotension during the admission. He had V/Q scan which was negative for pulmonary embolism. He had left knee pain, x-ray was unremarkable, ortho was consulted. The patient was prescribed doxycycline for possible cellulitis. The patient was discharged to inpatient rehab and was again admitted on 09/12/2021 with COVID, but he had minimal symptoms He did okay and he was transferred back to rehab. He was discharged from rehabilitation on 09/21/2021. He was ambulating with a walker, but last 2 to 3 days is getting weaker. Appetite is down, he is not eating much. After after few amount of food in his stomach, he gets cramps in the stomach and the last few days he is not at all eating. He also saw PCP recently and was prescribed for left infrapatellar bursitis Keflex, , but he has a lot of pain in left knee and not able to stand up, not able to ambulate. When he is standing, he is sweating and blood pressure is dropping. He did not move his bowels for the last several days because he did not eat much, not making much urine because not eating or drinking. No swelling in the legs. The patient has some abdominal discomfort. Denies any chest pain, no shortness of breath. Once in a while he gets cough. No headache, no dizziness. He always has some double vision in the left eye and had surgeries in that eye in the past. No runny nose, no sore throat. Once in a while he has some difficulty swallowing, but otherwise he swallows easily. He is on a regular diet and chews okay. Avoids meat. Currently afebrile, hemodynamically stable. ALLERGIES: PROCAINE, FLOMAX, AMLODIPINE, FIBRATE. PAST MEDICAL HISTORY: As mentioned above. PAST SURGICAL HISTORY: Bronchoscopy, CABG, colonoscopy, cystoscopy, ICD placement, prostate laser vaporization, TURP, tonsillectomy, sacroiliac joint injection. MEDICATIONS: The patient is on allopurinol 200 mg p.o. daily, aspirin 81 mg p.o. every other day, Keflex 500 mg p.o. t.i.d. to complete on 10/15/2021, vitamin B12 1000 mcg p.o. a.m., furosemide 40 mg p.o. daily, gabapentin 400 mg p.o. at bedtime, isosorbide mononitrate 30 mg p.o. daily, Januvia 25 mg p.o. daily, levothyroxine 125 mcg p.o. daily, metoprolol succinate 100 mg p.o. daily, tramadol 50 mg p.o. t.i.d. p.r.n., triamcinolone one topical b.i.d. p.r.n. FAMILY HISTORY: Significant for brother has prostate cancer; another brother has prostate cancer;brother has diabetes; mother has diabetes, heart disorder; brother has heart disorder; sister has diabetes; father has stroke; mother has stroke. SOCIAL HISTORY: . Lives with his and daughter. No smoking, no alcohol, no drug use. REVIEW OF SYSTEMS: As per HPI. Rest of review of systems is negative. PHYSICAL EXAMINATION: GENERAL: The patient is alert, awake, and oriented to name and place, not in acute distress. VITAL SIGNS: Temperature afebrile, pulse 60, respiratory rate 14, blood pressure 145/69, oxygen 100% on room air. HEENT: Pupils equal, round, and reactive to light. Oral mucosa moist. NECK: No JVD. No neck masses. CARDIOVASCULAR: S1 and S2 heard. Regular rate and rhythm. No murmur, no gallop. RESPIRATORY SYSTEM: Normal AP diameter. No accessory muscle use. No wheezing, no crackles. ABDOMEN: Soft. Bowel sounds are present, nontender, no distention. CENTRAL NERVOUS SYSTEM: Alert and oriented. Speech is clear. No facial droop. Obeys simple commands. Moves extremities. EXTREMITIES: No edema or erythema seen. Left knee joint is painful on movements. Nontender to palpation. No swelling seen. LABORATORY DATA: WBC 14.4, hemoglobin 13.3, hematocrit 40.2, platelets 328. PT 11.7, INR 1.1. Sodium 135, potassium 3.9, chloride 98, CO2 of 27, BUN 26, creatinine 1.5, serum glucose 111, lactate 1.5, calcium 10.3, magnesium 2, total bilirubin 3.2, AST 22, ALT 14, alkaline phosphatase 64. Troponin I high sensitivity 37.8. SARS-CoV-2 PCR positive. Influenza A and B PCR negative. RSV PCR negative. IMAGING DATA: Knee CT, no evidence of acute fracture or dislocation, superficial edema is seen in the anterior aspect of the knee, which is nonspecific. Head CT, no acute intracranial hemorrhage, no evidence of acute territorial infarction or acute intracranial disease process seen. Chest x-ray, no acute cardiopulmonary disease. There is no significant interval change. EKG: Ventricular paced rhythm at a rate of 62, no significant change was found. ASSESSMENT AND PLAN: This is an 86-year-old male who had recurrent admissions for weakness, ambulatory dysfunction, most recently in rehabilitation, comes back with weakness, ambulatory dysfunction, left knee pain, poor appetite. 1. Weakness and ambulatory dysfunction: Recently in rehabilitation. The patient also has left knee pain, which is contributing. Will get PT, OT. Monitor in the hospital. 2. Left knee pain: CAT scan was okay. The patient was prescribed Keflex by PCP for 10-day course, last dose is 10/15/2021 for possible infrapatellar bursitis. Will consult orthopedics for recommendations. 3. Transaminitis and elevated bilirubin: This was also present at last admission. The patient had ERCP during previous admissions and a sphincterectomy was performed and bile duct was stripped. Only minimal sludge removed, no stones seen. Liver biopsy showed inflammation. GI recommended steroids for autoimmune hepatitis, but family did not want it because in the past steroids made him weak and elevated sugars. Will consult GI for further recommendations. 4. Poor appetite: Seems to be losing weight, failure to thrive and abdominal pain. Only eating small amounts of food. Will consult GI for further recommendations. May need appetite stimulants. 5. Mild elevation of troponin, most likely secondary to chronic kidney disease: Will follow the repeat labs in the a.m. 6. COVID positive: The patient recently in the end of August had COVID and had minimal symptoms. Mostly from the past infection The patient currently does not have any symptoms.To place in private room. 7. History of coronary artery disease, status post coronary artery bypass grafting: Continue his home dose of aspirin, beta corky, nitrate. 8. Chronic systolic congestive heart failure: His EF was 25% in the past, but recently it has improved to 40% to 45%. Getting gentle fluids. Continue his Lasix, nitrate, and beta corky. Monitor for volume overload. 9. Chronic kidney disease stage IV: Baseline creatinine in mid 2's and low 3's, today it is 1.5, seems to be at baseline. Will follow the labs. 10. Tachy-pablo syndrome: Status post ICD. 11. History of transient ischemic attack: Continue aspirin . Statin discontinued due to transaminitis, will monitor. 12. Diabetes: HbA1c was 9.2 in July 2021, on . Will follow the repeat HbA1c. Insulin sliding scale while the patient is in the hospital. 13. Myopathy and ongoing weakness: Myopathy could be from liver disease. 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 15. Atrial fibrillation: On metoprolol. Currently not on anticoagulation secondary to fall risk. 16. History of benign prostatic hypertrophy, status post transurethral resection of the prostate. Monitor for any urinary retention. 17. Protein calorie malnutrition: Dietitian consult. 18. Deep venous thrombosis prophylaxis: Sequential compression devices, heparin subcutaneous. DISPOSITION: Closely monitor in the [facility] tele. PT/OT prior to discharge. Social service to help with discharge planning. CODE STATUS: DNR/DNI as per my discussion with the daughter and the . Job ID: [id number] HENNY
[2021-10-12] MEDS ORDERED: GLUCOSE 40% GEL 15 GM TUBE PO PRN (00:15)
[2021-10-12] MEDS ORDERED: GLUCOSE 10 TAB/TUBE PO PRN (00:15)
[2021-10-12] MEDS ORDERED: GLUCAGON FOR INJ 1 MG VIAL IM PRN (00:15)
[2021-10-12] MEDS ORDERED: CARBOHYDRATES FOR HYPOGLYCEMIA PO PRN (00:15)
[2021-10-12] MEDS ORDERED: DEXTROSE 50% 50 ML SYRINGE IV PRN (00:15)
[2021-10-12] MEDS: HEPARIN SOD 5,000 UNIT/0.5 ML VIAL SQ SCH ×4 (01:39→21:18)
[2021-10-12] MEDS: TRIAMCINOLONE ACET 0.1% CR 15 GM TUBE TOP SCH ×3 (01:39→21:19)
[2021-10-12] MEDS: GABAPENTIN 400 MG CAP PO SCH ×2 (01:39→21:18)
[2021-10-12] MEDS: LEVOTHYROXINE SODIUM 125 MCG TABLET PO SCH (05:43)
[2021-10-12 06:07] LABS: Basophils # (auto) 0.03 K/uL (0-0.2); Basophils % (auto) 0.3 %; Eosinophils # (auto) 0.23 K/uL (0-0.5); Eosinophils % (auto) 2.1 %; Hematocrit (blood only) 36.4 % (42-52); Hemoglobin 12.2 g/dL (14.0-18.0); Immature Granulocytes # (auto) 0.09 K/uL (0.00-0.02); Immature Granulocytes % (auto) 0.8 %; Lymphocytes # (auto) 2.92 K/uL (1.2-3.4); Lymphocytes % (auto) 26.1 %; Mean Corpuscular Hemoglobin 33.7 pg (25-34); Mean Corpuscular Hgb Conc 33.5 g/dL (32-36); Mean Corpuscular Volume 100.6 fL (80-100); Mean Platelet Volume 10.4 fL (7.4-10.4); Monocytes # (auto) 1.53 K/uL (0.11-0.59); Monocytes % (auto) 13.7 %; Neutrophils # (auto) 6.38 K/uL (1.4-6.5); Platelet Count 271 K/uL (130-400); RDW Coefficient of Variation 16.8 % (11.5-14.5); RDW Standard Deviation 62.4 fL (36.4-46.3); Red Blood Count 3.62 M/uL (4.7-6.1); White Blood Count 11.18 K/uL (4.8-10.8)
[2021-10-12 06:34] LABS: Troponin I High Sensitivity 38.5 pg/ml (0-20)
[2021-10-12 06:35] LABS: Albumin Level 3.1 gm/dl (3.4-5.0); Bilirubin Direct 1.1 mg/dl (0-0.2); Bilirubin,Total 2.7 mg/dl (0.2-1.0); Calcium 9.6 mg/dl (8.5-10.1); Creatinine Clr Calc Pharmacy 39.2 ml/min; Est GFR (African American) 50.9 ml/min; Est GFR (Non-African American) 43.9 ml/min; Phosphorus 3.1 mg/dl (2.5-4.9); Potassium 3.6 mmol/L (3.5-5.1); Total Protein 6.3 gm/dl (6.0-8.3)
[2021-10-12 06:43] LABS: Estimated Average Glucose 137 mg/dl; Hemoglobin A1C 6.4 % (4.5-5.6)
[2021-10-12] MEDS: ASPIRIN 81 MG ECTAB PO SCH (09:03)
[2021-10-12] MEDS: allopurinoL 100 MG TAB PO SCH (09:03)
[2021-10-12] MEDS: ISOSORBIDE MONO EXTENDED REL 30 MG TABCR PO SCH (09:04)
[2021-10-12] MEDS: FUROSEMIDE 40 MG TAB PO SCH (09:04)
[2021-10-12] MEDS: cephALEXin 500 MG CAP PO SCH ×2 (09:04→21:17)
[2021-10-12] MEDS: CYANOCOBALAMIN (B-12) 500 MCG TABLET PO SCH (09:04)
[2021-10-12] MEDS: METOPROLOL SUCC 50MG EXT REL TAB PO SCH (09:05)
[2021-10-12] MEDS: INSULIN ASPART PER UNIT SC SCH ×4 (09:11→20:34)
[2021-10-12] MEDS: PANTOprazole 40 MG in DEXTROSE 5% 100 ML IV SCH ×3 (10:54→20:58)
--- NOTE | 2021-10-12 11:02 | Gastrointestinal Consultation ---
Date of Consultation October 12, 2021 Supervising Physician Co-Signing Physician Notes 86 yo male with chf, aicd in place, s/p ercp one month ago with eus-lb showing ? congestive hepatopathy +/- aih treated for aih. Now GI consulted for abd pain. Diff - pudz, gastritis, Check abd kenneth PPI daily. His bilirubin appears to have improved after ercp and 1 month of steroids for presumed. Given the relucatance of the family to be on steroids, it would be recommended to restart if no signs of an infection. He may also have a component of congestive hepatopathy contributing to his bilirubin elevation though this is much improved compared to over 1 month ago. He also may have a component of gilbert's syndrome given the primarily indirect fractionation of the bilirubin. Trend lft's for now. History of Present Illness Reason for Consultation: Abdominal pain Requesting Physician: Dr. Brizuela Attending Physician: Davian Cervantes MD History of Present Illness 86 year old male with history T2DM, CAD, ischemic cardiomyopathy EF 25%, atrial fibrillation not anticoagulated due to advanced age and fall risk, pacer/AICD in place, CKD stage IV, history of TIA s/p ERCP with sphincterotomy 08/31, liver bx with nonspecific findings perhaps congestive hepatopathy w/ autoimmune hepatitis started on PO prednisone for rising Tbili and AlkP at that time, admitted thru the ER overnite. Gi consulted for abdominal pain. On chart review- the patient was started on steroids for presumed aih in 09/12. today he has a plate of food in front of him that appears partially eaten. he is sleepy but arousable- voices no complaints to me. He recently had some newer abx started, no recent nsaid use reportedly, no reports of hematemesis or hematochezia. Allergies Allergy/AdvReac Type Severity Reaction Status Date / Time procaine [From Novocain] Allergy Intermediate Fever Verified 10/11/21 20:10 tamsulosin [From Flomax] AdvReac Severe Fainting Verified 10/11/21 20:10 amlodipine AdvReac Mild INSOMNIA Verified 10/11/21 20:10 Fibrate Anti-Lipidemics AdvReac Unknown NECK PAIN Verified 10/11/21 20:10 Home Medications Medication Instructions Recorded Confirmed Type allopurinol 100 mg tablet 200 mg PO DAILY 10/20/18 10/11/21 History aspirin 81 mg tablet,delayed 81 mg PO Q OTHER DAY 10/20/18 10/11/21 History release cyanocobalamin (vitamin B-12) 500 1,000 mcg PO QAM 10/20/18 10/11/21 History mcg tablet gabapentin 400 mg capsule 400 mg PO HS 10/20/18 10/11/21 History levothyroxine 125 mcg tablet 125 mcg PO DAILY@0600 10/20/18 10/11/21 History metoprolol succinate 100 mg 100 mg PO QAM 10/20/18 10/11/21 History tablet,extended release 24 hr sitagliptin 25 mg tablet (Januvia) 25 mg PO DAILY 07/22/21 10/11/21 History furosemide 40 mg tablet 40 mg PO DAILY 08/26/21 10/11/21 History isosorbide mononitrate 60 mg 30 mg PO QAM 08/26/21 10/11/21 History tablet,extended release 24 hr triamcinolone acetonide 0.1 % 1 applic TOPICAL BID 08/26/21 10/11/21 History topical cream cephalexin 500 mg capsule 500 mg PO TID 10/11/21 10/11/21 History tramadol 50 mg tablet 50 mg PO TID PRN 10/11/21 10/11/21 History Patient History Medical History Benign prostatic hyperplasia with urinary obstruction CAD (coronary artery disease) Status post inferior wall myocardial infarction in 1980 Status post January 1997 coronary bypass grafting x 3, receiving a RUSS graft to the LAD, a saphenous vein graft to the ramus, and a SVG to the 1st obtuse marginal. CHB (complete heart block) pt admitted for elective upgrade to biv icd. Underwent procedure without any complications and monitored overnight CKD (chronic kidney disease) stage 4, GFR 15-29 ml/min Diabetes DM type 2 (diabetes mellitus, type 2) Gout High cholesterol History of atrial fibrillation PAF HTN (hypertension) Hyperlipidemia Hypothyroidism ICD (implantable cardioverter-defibrillator) battery depletion Status post dual chamber pacemaker defibrillator implantation on March 11, 2004, generator exchanges on 07/09/2009, and November 11, 2014 using a [employer] XT DR [id number] device. Status post December 19, 2018 upgrade from a dual chamber implantable cardiac defibrillator to a biventricular rate responsive implantable cardiac defibrillator by Dr. Basurto at [facility]. Ischemic cardiomyopathy PPM upgraded to BiV ICD Osteoarthritis Pacemaker Stage 4 chronic kidney disease Baseline creatinine 2.4-2.8 range per records Systolic heart failure TIA (transient ischemic attack) Transient ischemic attack (TIA) 2014 Urinary urgency V tach Hx Surgical History History of cardiac cath History of colonoscopy History of eye surgery History of implantable cardiac defibrillator (ICD) History of tonsillectomy History of tooth extraction History of transurethral resection of prostate TURP (02/20/18): LMA#4 (iGel) at [facility] Hx of CABG CABG x3 (1996)- RUSS-LAD, SVG-RAMUS, SVG TO OM1 Hx of transurethral resection of prostate ICD (implantable cardioverter-defibrillator) in place Implanted (2003); Generator change (2009) Family History Brother Prostate cancer Diabetes Coronary heart disease Mother Diabetes Stroke Coronary heart disease Father Stroke Social History Smoking Status: Unknown if ever smoked Second Hand Exposure: No; Do You Dip or Chew Tobacco: No; Tobacco Cessation Education Requested by Patient: No Hx Alcohol Use: No Hx Substance Use: No Preferred Language: Iraqi Communication Ability: Effective 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: No Beliefs That Will Affect Care: None marital status: Current Living Situation: Spouse and Family How many Children do You have: 4 Other Information That Helps Us Care for You: No Feels Safe at Home: Yes Safety Concerns: Feels Safe At This Time Assistive Devices: Cane, Crutches, Glasses and Walker Assistive Devices Comment: may need a bedside commode Review of Systems Review of Systems: All systems reviewed & are unremarkable except as noted in HPI & below Physical Exam Physical Exam: Elderly male in nad wearing glasses Eyes: PERRL, conjunctivae normal, anicteric sclerae Respiratory: Normal respirations Gastrointestinal (Abdomen): Soft nontender, non distended Neurologic: Sleepy but arousable Results & Data ([facility]) Vital Signs (Past 12 Hours) Vital Signs Temp Pulse Resp BP Pulse Ox 10/12/21 01:13 61 10/12/21 00:50 36.7 C 18 128/69 95 10/11/21 23:53 36.4 C L 18 122/64 95 Laboratory Results Labs reviewed WBC 11.18/hgb 12/hct 36.4/pl 271 Na 134/K 3.6/Bun 29/Cr 1.5 AP 281 AST 17 ALAT 11 TB 2.7 DB 1.1 both bilirubins are lower than before
[2021-10-12] MEDS: ACETAMINOPHEN 325 MG TAB PO PRN ×2 (12:11→21:41)
[2021-10-12] MEDS: traMADol HCL 50 MG TABLET PO PRN (12:13)
--- NOTE | 2021-10-12 13:19 | Electrocardiogram Report ---
Test Reason : Blood Pressure : / mmHG Vent. Rate : 062 BPM Atrial Rate : 227 BPM P-R Int : 000 ms QRS Dur : 168 ms QT Int : 512 ms P-R-T Axes : 000 -48 109 degrees QTc Int : 519 ms Ventricular-paced rhythm Abnormal ECG When compared with ECG of 12-SEP-2021 12:28, No significant change was found Confirmed by Thad Wylie ([id number]) on 10/12/2021 1:19:18 PM Referred By: REFERRED SELF Confirmed By:Thad Wylie
[2021-10-12] MEDS: DICLOFENAC SOD 1% GEL 100 GM TUBE EXT SCH ×2 (16:03→21:19)
--- NOTE | 2021-10-12 19:57 | Ultrasound Report ---
US liver CLINICAL HISTORY: elevated LFTs COMPARISON STUDY: CT of the abdomen and pelvis August 26, 2021. Right upper quadrant ultrasound September 05, 2021. FINDINGS: This exam is compromised by suboptimal penetration. No biliary ductal dilatation is identif ied. Common bile duct measures 6 mm in caliber. No hepatic lesions are identified. There is sludge wi thin the gallbladder as well as small stones. There is no gallbladder wall thickening. No sonographic Storm sign was elicited. Pancreas is obscured. There is no right hydronephrosis. 2.8 cm right renal cyst is incidentally noted. IMPRESSION: 1. Exam compromised by suboptimal penetration. No biliary ductal dilatation identified. 2. Sludge and small stones within the gallbladder. No evidence for acute cholecystitis. 3. Obscured pancreas. ACT 112: Negative or not required by law. Electronically signed by: Bimal Griffiths M.D. 10/12/2021 7:56 PM
--- NOTE | 2021-10-12 22:35 | Consultation Report ---
DATE OF SERVICE: 10/12/2021 HISTORY OF PRESENT ILLNESS: The patient is an 86-year-old white male admitted with multiple medical problems. The medical service consulted orthopedics for a left prepatellar bursitis. Today on exam, the patient's and son were present. Discussed that the patient had previously been admitted. I reviewed the patient's chart. The patient had previously been admitted for multiple medical proble ms and has been treated intermittently over the last month with IVs as well as orals for a left prepa tellar bursitis. Apparently, he was having knee pain. X-rays and a CT scan were performed. CT scan reveals some soft tissue edema in the prepatellar area. No evidence of an acute infectious prepatel lar bursitis is noted at this time. The patient is poorly responsive. Apparently, he was having iss ues with ambulation earlier and was having hypotensive episodes. His clinical exam reveals there to be a resolving infrapatellar prepatellar bursitis, left knee does not appear to be septic or infectio us. His foot is mildly thickened. CT scan reveals there to be no evidence of bony involvement. MRI scan is not able to be done due to pacemaker. The patient was previously being treated with physica l therapy as well for his left knee until this admission. IMPRESSION: Resolving left prepatellar bursitis. PLAN: We will reexamine the patient again when the patient is more alert to determine any mechanical issues with regard to his knee, but at this point appears to be resolving prepatellar bursitis. We will follow with you. Job ID: [id number]
--- NOTE | 2021-10-12 23:52 | Hospitalist Progress Note ---
Date of Service October 12, 2021 Assessment & Plan (1) Generalized weakness: Plan: Present on admission with weakness and left knee pain CT head showed no acute intracranial abnormality Continue PT/OT Abdominal pain AST and ALT normalizes Liver u/s showed Exam compromised by suboptimal penetration. No biliary ductal dilatation identified. Sludge and small stones within the gallbladder. No evidence for acute cholecystitis. Gastro on board Chronic Elevated troponin: Resting echo-unchanged from prior study and perhaps slight improvement with overall systolic function Patient's advanced age and multiple comorbid conditions likely contributing to his generalized weakness No evidence of ACS Asymptomatic Left knee pain: Possible due to L knee bursitis CT L knee showed No evidence of acute fracture or dislocation. 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 Admission and Anticipated Discharge Date Admission Date: October 11, 2021 Subjective Pt was seen and examined for follow up of weakness and left knee pain Lying in bed with no distress Pt said that he is having alot of pain in his left knee Pt said that pain worst when standing oh his left leg Denies any chest pain, palpitation, dizziness and SOB Review of Systems Review of Systems: All systems reviewed & are unremarkable except as noted in Subjective Physical Exam Physical Exam: General- No acute distress Head- atraumatic Eyes- PERRL, EOMI, ENT- oropharynx clear Neck- supple, no JVD Lungs- clear to auscultation Heart- regular rhythm; no murmur Abdomen- normal bowel sounds, soft, nontender Extremities- no calf tenderness, left knee tenderness Neuro- alert, oriented x 3; PERRL, EOMI; no facial palsy; no dysarthria Skin- warm & dry Results & Data Results & Data ([facility]) Vital Signs (Past 12 Hours) Vital Signs Temp Pulse Pulse Resp BP Pulse Ox 10/12/21 23:34 36.5 C 63 18 134/71 97 10/12/21 17:03 60 10/12/21 15:33 36.3 C L 60 20 110/64 98 10/12/21 12:50 36.7 C 16 114/68 94
[2021-10-13] MEDS: PANTOprazole 40 MG in DEXTROSE 5% 100 ML IV SCH ×5 (01:38→20:50)
[2021-10-13] MEDS: HEPARIN SOD 5,000 UNIT/0.5 ML VIAL SQ SCH ×3 (06:11→20:51)
[2021-10-13] MEDS: LEVOTHYROXINE SODIUM 125 MCG TABLET PO SCH (06:11)
[2021-10-13] MEDS: DICLOFENAC SOD 1% GEL 100 GM TUBE EXT SCH ×3 (06:11→20:52)
[2021-10-13] MEDS: INSULIN ASPART PER UNIT SC SCH ×4 (07:38→20:14)
[2021-10-13] MEDS: cephALEXin 500 MG CAP PO SCH ×2 (07:47→20:52)
[2021-10-13] MEDS: CYANOCOBALAMIN (B-12) 500 MCG TABLET PO SCH (07:48)
[2021-10-13] MEDS: METOPROLOL SUCC 50MG EXT REL TAB PO SCH (07:48)
[2021-10-13] MEDS: ISOSORBIDE MONO EXTENDED REL 30 MG TABCR PO SCH (07:48)
[2021-10-13] MEDS: allopurinoL 100 MG TAB PO SCH (07:48)
[2021-10-13] MEDS: TRIAMCINOLONE ACET 0.1% CR 15 GM TUBE TOP SCH ×2 (07:49→20:52)
[2021-10-13] MEDS: FUROSEMIDE 40 MG TAB PO SCH (08:31)
--- NOTE | 2021-10-13 11:49 | Gastroenterology Progress Note ---
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 He does have stones in the gallbladder so may have had some pain from passage of microlithiasis but LFTs being lower now than a month ago argues against that. (2) Abdominal pain: Plan: Differentials considered include passage of microlithiasis, gastritis, peptic ulcer dx (though EGD normal in August 2021). Plan: Would hold on steroid tx for autoimmune hepatitis (per family preference). No indication for GI procedures at this time. Would recheck LFTs periodically. Daily PPI. GI will follow peripherally. Please notify us if worsening pain or increasing LFTs. Admission and Anticipated Discharge Date Admission Date: October 11, 2021 Supervising Physician Co-Signing Physician Notes The patient is covid +. Abd kenneth without findings of biliary dilation Lft's normal from yesterday Recent liver biopsy c/w aih treated wtih steroids for 1 month and congestive hepatopathy. At the current time- daily ppi for abdominal pain, covid treatment as indicated. Hold steroids for aih unless he requires them for covid treatment. Would not restart steroids for aih until he is fully back to his baseline. Subjective 86 yr male admitted for abd pain. Hx cardiomyopathy, CHF, CKD4, DM2, TIA. Today abd pain improved, generally weak. HR 57 and sat at 94% on room air. Most recent LFTs yesterday: T Bili 1.1, AST 17, ALT 11, Alk Phos 281 (these are improved compared to a month ago). Review of Systems Review of Systems: ROS: Gen: +weakness, No fevers, No weight loss Eyes: No eye redness, or pain, no recent vision changes Resp: No SOB, no cough Cardio: No palpitations/irregular beats, no chest pain GI: No abdominal pain, no nausea/vomiting : Denies pain on urination Skin: No jaundice, itching or new rashes Physical Exam Constitutional: well developed, + ill appearing and cooperative Eyes: PERRL, conjunctivae normal, anicteric sclerae Respiratory: normal respiratory effort, lungs clear to auscultation Gastrointestinal (Abdomen): normal bowel sounds, soft, nontender, no hepatosplenomegaly Skin: no rashes, warm and dry normal turgor Neurologic: PERRL, EOMI, accommodation nl, no face palsy, no dysarthria awake; not confused Results & Data ([facility]) Vital Signs (Past 12 Hours) Vital Signs Temp Pulse Pulse Resp BP BP Pulse Ox 10/13/21 10:37 36.6 C 57 L 18 115/68 94 10/13/21 08:00 60 10/13/21 06:38 36.4 C L 60 14 116/62 95 10/13/21 02:53 36.3 C L 60 14 117/68 95 Laboratory Results Labs today: Glucose 177 Labs 10/12/21 reviewed: WBC 11, Hb 12, Hct 36, Plts 271, Na 134, K 3.6, Cl 100, CO2 25, BUN 29, Cr 1.45, glucose 108. T Bili 1.1 AST 17, ALT 11, Alk Phos 281 Diagnostic Findings Liver US 10/12/21: 1. Exam compromised by suboptimal penetration. No biliary ductal dilatation identified. 2. Sludge and small stones within the gallbladder. No evidence for acute cholecystitis. 3. Obscured pancreas.
[2021-10-13] MEDS: traMADol HCL 50 MG TABLET PO PRN (15:34)
--- NOTE | 2021-10-13 16:50 | Hospitalist Progress Note ---
Date of Service October 13, 2021 Assessment & Plan (1) Generalized weakness: Plan: Present on admission with weakness and left knee pain CT head showed no acute intracranial abnormality Continue PT/OT Denies any significant pain as of today 10/13/2021 Abdominal pain AST and ALT normalizes Liver u/s showed Exam compromised by suboptimal penetration. No biliary ductal dilatation identified. Sludge and small stones within the gallbladder. No ev idence for acute cholecystitis. Gastro on board -appreciate input and recommendation GI signed off and will not use any steroid for now Chronic Elevated troponin: Resting echo-unchanged from prior study and perhaps slight improvement with overall systolic function Patient's advanced age and multiple comorbid conditions likely contributing to his generalized weakness No evidence of ACS Asymptomatic Left knee pain: Possible due to L knee bursitis CT L knee showed No evidence of acute fracture or dislocation. 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: Appears compensated, continue home dose of furosemide Continue ASA, beta-corky, nitrate CKD (chronic kidney disease) stage 4, GFR 15-29 ml/min: Baseline creatinine mid 2s- low 3s Creatinine 1.4 today Follow renal functions Stable 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 We will get PT and OT evaluation before discharge Admission and Anticipated Discharge Date Admission Date: October 11, 2021 Subjective 10/13/2021 The patient was seen and examined in medical telemetry unit in presence of the He has been anorexic and is losing weight Denies any nausea and or vomiting and abdominal pain seems to be stable Feels generally weak and lethargic Left knee pain has been getting better Review of Systems Review of Systems: All systems reviewed and are unremarkable except as noted below Musculoskeletal: No acute arthritis in any of the joints Physical Exam Physical Exam: Lying in bed comfortably Constitutional: well developed, well nourished, + ill appearing and + obese Eyes: PERRL, conjunctivae normal, anicteric sclerae ENMT: external ear and nose normal, oropharynx normal Respiratory: no respiratory distress Auscultation: lungs clear to auscultation bilaterally and + diminished lung sounds Cardiovascular: Rate/Rhythm: regular rate and regular rhythm; not tachycardic Heart Sounds: normal S1 and normal S2; no murmur Extremities: + edema (Trace edema bilaterally) Gastrointestinal (Abdomen): Inspection/Auscultation: normal bowel sounds; abdomen not distended Percussion/Palpation: abdomen soft; abdomen nontender Musculoskeletal: No acute arthritis or joint. Minimal swelling of the left k nee joint. Mildly tender on patella tap Neurologic: Alert, awake and oriented x3. No focal sensory and no motor deficit appreciated Lymphatic: no cervical or axillary lymphadenopathy Results & Data Results & Data ([facility]) Vital Signs (Past 12 Hours) Vital Signs Temp Pulse Pulse Resp BP BP Pulse Ox 10/13/21 15:49 36.3 C L 62 20 99/57 L 96 10/13/21 15:00 60 10/13/21 10:37 36.6 C 57 L 18 115/68 94 10/13/21 08:00 60 10/13/21 06:38 36.4 C L 60 14 116/62 95 Medications Administered Current Inpatient Medications Acetaminophen (Acetaminophen 325 Mg Tab) 650 mg PO Q4H PRN PRN Reason: Pain or Fever Stop: 11/10/21 23:52 Last Admin: 10/12/21 21:41 Dose: 650 mg Documented by: Allopurinol (Allopurinol 100 Mg Tab) 200 mg PO DAILY [facility] Stop: 11/11/21 08:59 Last Admin: 10/13/21 07:48 Dose: 200 mg Documented by: Aspirin (Aspirin 81 Mg Ectab) 81 mg PO Q2D@0900 [facility] Stop: 11/11/21 08:59 Last Admin: 10/12/21 09:03 Dose: 81 mg Documented by: Cephalexin HCl (Cephalexin 500 Mg Cap) 500 mg PO BID [facility] Stop: 10/15/21 21:59 Last Admin: 10/13/21 07:47 Dose: 500 mg Documented by: Cyanocobalamin (Cyanocobalamin (B-12) 500 Mcg Tablet) 1,000 mcg PO QAM [facility] Stop: 11/11/21 08:59 Last Admin: 10/13/21 07:48 Dose: 1,000 mcg Documented by: Dextrose (Dextrose 50% 50 Ml Syringe) 25 - 50 ml IV UD PRN; Protocol PRN Reason: Hypoglycemia Protocol Stop: 11/11/21 00:14 Diclofenac Sodium (Diclofenac Sod 1% Gel 100 Gm Tube) 2 gm EXT Q8H [facility]; Protocol Stop: 11/11/21 14:44 Last Admin: 10/13/21 14:18 Dose: 2 gm Documented by: Furosemide (Furosemide 40 Mg Tab) 40 mg PO DAILY [facility] Stop: 11/11/21 08:59 Last Admin: 10/13/21 08:31 Dose: 40 mg Documented by: Gabapentin (Gabapentin 400 Mg Cap) 400 mg PO HS [facility] Stop: 11/10/21 23:52 Last Admin: 10/12/21 21:18 Dose: 400 mg Documented by: Glucagon (Glucagon For Inj 1 Mg Vial) 1 mg IM UD PRN; Protocol PRN Reason: Hypoglycemia Protocol Stop: 11/11/21 00:14 Glucose (Glucose 40% Gel 15 Gm Tube) 15 - 30 gm PO UD PRN; Protocol PRN Reason: Hypoglycemia Protocol Stop: 11/11/21 00:14 Glucose (Glucose 10 Tabs/Tube) 4 - 8 tabs PO UD PRN; Protocol PRN Reason: Hypoglycemia Protocol Stop: 11/11/21 00:14 Heparin Sodium (Porcine) (Heparin Sod 5,000 Unit/0.5 Ml Vial) 5,000 units SQ Q8 [facility] Stop: 11/10/21 23:52 Last Admin: 10/13/21 14:18 Dose: 5,000 units Documented by: Pantoprazole Sodium 40 mg/ (Dextrose) 100 mls @ 20 mls/hr IV Q5H [facility] Stop: 11/11/21 10:29 Last Admin: 10/13/21 15:59 Dose: 8 mg/hr, 20 mls/hr Documented by: Insulin Aspart (Insulin Aspart Per Unit) 0 units SC ACHS [facility] Stop: 11/11/21 07:29 Last Admin: 10/13/21 11:49 Dose: 1 units Documented by: Isosorbide Mononitrate (Isosorbide [place] Extended Rel 30 Mg Tabcr) 30 mg PO QAM [facility] Stop: 11/11/21 08:59 Last Admin: 10/13/21 07:48 Dose: 30 mg Documented by: Levothyroxine Sodium (Levothyroxine Sodium 125 Mcg Tablet) 125 mcg PO DAILY@0600 [facility] Stop: 11/11/21 05:59 Last Admin: 10/13/21 06:11 Dose: 125 mcg Documented by: Metoprolol Succinate (Metoprolol Succ 50mg Ext Rel Tab) [facility] Stop: 11/11/21 08:59 Last Admin: 10/13/21 07:48 Dose: 100 mg Documented by: Miscellaneous (Carbohydrates For Hypoglycemia ) 15 - 30 gm PO UD PRN PRN Reason: Hypoglycemia Treatment Stop: 11/11/21 00:14 Nitroglycerin (Nitroglycerin Sl 0.4 Mg/Tab Tab) 0.4 mg SL UD PRN PRN Reason: Chest Pain Stop: 11/10/21 23:52 Polyethylene Glycol (Polyethylene (Miralax) 17 Gm Pack) 17 gm PO DAILY PRN PRN Reason: Constipation Stop: 11/10/21 23:52 Tramadol HCl (Tramadol Hcl 50 Mg Tablet) 50 mg PO TID PRN PRN Reason: Pain Stop: 11/10/21 23:52 Last Admin: 10/13/21 15:34 Dose: 50 mg Documented by: Triamcinolone Acetonide (Triamcinolone Acet 0.1% Cr 15 Gm Tube) 1 appln TOP BID [facility] Stop: 11/10/21 23:52 Last Admin: 10/13/21 07:49 Dose: 1 appln Documented by:
[2021-10-13] MEDS: ACETAMINOPHEN 325 MG TAB PO PRN (17:13)
[2021-10-13] MEDS: GABAPENTIN 400 MG CAP PO SCH (20:52)
[2021-10-14] MEDS: ACETAMINOPHEN 325 MG TAB PO PRN ×2 (00:07→06:24)
[2021-10-14] MEDS: PANTOprazole 40 MG in DEXTROSE 5% 100 ML IV SCH ×4 (01:39→17:56)
[2021-10-14] MEDS: HEPARIN SOD 5,000 UNIT/0.5 ML VIAL SQ SCH ×3 (06:24→20:45)
[2021-10-14] MEDS: DICLOFENAC SOD 1% GEL 100 GM TUBE EXT SCH ×3 (06:24→22:09)
[2021-10-14] MEDS: LEVOTHYROXINE SODIUM 125 MCG TABLET PO SCH (06:24)
[2021-10-14 06:30] LABS: Basophils # (auto) 0.02 K/uL (0-0.2); Basophils % (auto) 0.2 %; Eosinophils % (auto) 4.4 %; Hematocrit (blood only) 33.4 % (42-52); Hemoglobin 11.4 g/dL (14.0-18.0); Immature Granulocytes # (auto) 0.12 K/uL (0.00-0.02); Immature Granulocytes % (auto) 1.3 %; Lymphocytes # (auto) 2.39 K/uL (1.2-3.4); Mean Corpuscular Hemoglobin 33.8 pg (25-34); Mean Corpuscular Hgb Conc 34.1 g/dL (32-36); Mean Corpuscular Volume 99.1 fL (80-100); Mean Platelet Volume 9.8 fL (7.4-10.4); Monocytes % (auto) 16.3 %; Neutrophils # (auto) 4.76 K/uL (1.4-6.5); Neutrophils % (auto) 51.8 %; Platelet Count 267 K/uL (130-400); RDW Coefficient of Variation 16.4 % (11.5-14.5); RDW Standard Deviation 59.6 fL (36.4-46.3); Red Blood Count 3.37 M/uL (4.7-6.1); White Blood Count 9.19 K/uL (4.8-10.8)
[2021-10-14 06:55] LABS: Albumin Level 2.9 gm/dl (3.4-5.0); BUN Creatinine Ratio 19.4 (10-20); Bilirubin,Total 2.1 mg/dl (0.2-1.0); Calcium 9.2 mg/dl (8.5-10.1); Creatinine Clr Calc Pharmacy 34.4 ml/min; Est GFR (African American) 43.5 ml/min; Est GFR (Non-African American) 37.6 ml/min; Potassium 3.4 mmol/L (3.5-5.1); Total Protein 5.9 gm/dl (6.0-8.3)
[2021-10-14] MEDS: ISOSORBIDE MONO EXTENDED REL 30 MG TABCR PO SCH (08:37)
[2021-10-14] MEDS: cephALEXin 500 MG CAP PO SCH ×2 (08:37→20:44)
[2021-10-14] MEDS: CYANOCOBALAMIN (B-12) 500 MCG TABLET PO SCH (08:37)
[2021-10-14] MEDS: FUROSEMIDE 40 MG TAB PO SCH (08:37)
[2021-10-14] MEDS: allopurinoL 100 MG TAB PO SCH (08:37)
[2021-10-14] MEDS: ASPIRIN 81 MG ECTAB PO SCH (08:37)
[2021-10-14] MEDS: METOPROLOL SUCC 50MG EXT REL TAB PO SCH (08:37)
[2021-10-14] MEDS: TRIAMCINOLONE ACET 0.1% CR 15 GM TUBE TOP SCH ×2 (08:38→20:45)
[2021-10-14] MEDS: INSULIN ASPART PER UNIT SC SCH ×3 (08:38→17:28)
[2021-10-14] MEDS ORDERED: POTASSIUM CHLORIDE CRTAB 20 MEQ TABCR PO STA (12:36)
--- NOTE | 2021-10-14 16:41 | Hospitalist Progress Note ---
Date of Service October 14, 2021 Assessment & Plan (1) Generalized weakness: Plan: Present on admission with weakness and left knee pain CT head showed no acute intracranial abnormality Continue PT/OT Denies any significant pain as of today 10/13/2021 Awaiting placement Has severe protein calorie malnutrition BMI is only 25.2 Nutrition consult Abdominal pain AST and ALT normalizes Liver u/s showed Exam compromised by suboptimal penetration. No biliary ductal dilatation identified. Sludge and small stones within the gallbladder. No evidence for acute cholecystitis. Gastro on board -appreciate input and recommendation GI signed off and will not use any steroid for now Denies any abdominal pain and/or nausea or vomiting Chronic Elevated troponin: Resting echo-unchanged from prior study and perhaps slight improvement with overall systolic function Patient's advanced age and multiple comorbid conditions likely contributing to his generalized weakness No evidence of ACS Asymptomatic Left knee pain: Possible due to L knee bursitis CT L knee showed No evidence of acute fracture or dislocation. 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: Appears compensated, continue home dose of furosemide Continue ASA, beta-corky, nitrate CKD (chronic kidney disease) stage 4, GFR 15-29 ml/min: Baseline creatinine mid 2s- low 3s Creatinine 1.4 today Follow renal functions Creatinine slightly elevated at 1.65- 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 We will get PT and OT evaluation before discharge-recommended rehab Admission and Anticipated Discharge Date Admission Date: October 11, 2021 Subjective 10/13/2021 The patient was seen and examined in medical telemetry unit in presence of the He has been anorexic and is losing weight Denies any nausea and or vomiting and abdominal pain seems to be stable Feels generally weak and lethargic Left knee pain has been getting better 10/14/2021 The patient was seen and examined in medical telemetry unit He remains stable without any significant complaints Has had physical therapy evaluation and recommended rehab Review of Systems Review of Systems: All systems reviewed and are unremarkable except as noted below Musculoskeletal: No acute arthritis in any of the joints Physical Exam Physical Exam: Lying in bed comfortably Constitutional: well developed, well nourished, + ill appearing and + obese Eyes: PERRL, conjunctivae normal, anicteric sclerae ENMT: external ear and nose normal, oropharynx normal Respiratory: no respiratory distress Auscultation: lungs clear to auscultation bilaterally and + diminished lung sounds Cardiovascular: Rate/Rhythm: regular rate and regular rhythm; not tachycardic Heart Sounds: normal S1 and normal S2; no murmur Extremities: + edema (Trace edema bilaterally) Gastrointestinal (Abdomen): Inspection/Auscultation: normal bowel sounds; abdomen not distended Percussion/Palpation: abdomen soft; abdomen nontender Musculoskeletal: Left knee pain seems to be stable Neurologic: Alert, awake and oriented x3. Generally weak but no focal sensory or no motor deficit appreciated Lymphatic: no cervical or axillary lymphadenopathy Results & Data Results & Data ([facility]) Vital Signs (Past 12 Hours) Vital Signs Temp Pulse Pulse Resp BP Pulse Ox 10/14/21 16:35 36.6 C 60 20 116/61 96 10/14/21 11:12 36.0 C L 60 20 110/68 96 10/14/21 08:19 62 10/14/21 06:58 36.8 C 61 16 108/66 95 Laboratory Results Short CBC 10/14/21 Range/Units 06:04 WBC 9.19 (4.8-10.8) K/uL Hgb 11.4 L (14.0-18.0) g/dL Hct 33.4 L (42-52) % Plt Count 267 (130-400) K/uL BMP 10/14/21 06:04 Sodium 133 L Potassium 3.4 L Chloride 100 Carbon Dioxide 26 BUN 32 H Creatinine 1.65 H Glucose 112 H Calcium 9.2 Liver Function 10/14/21 Range/Units 06:04 Total Bilirubin 2.1 H (0.2-1.0) mg/dl AST 31 (13-39) U/L ALT 19 (7-52) U/L Alkaline Phosphatase 358 H (34-104) U/L Albumin 2.9 L (3.4-5.0) gm/dl Medications Administered Current Inpatient Medications Acetaminophen (Acetaminophen 325 Mg Tab) 650 mg PO Q4H PRN PRN Reason: Pain or Fever Stop: 11/10/21 23:52 Last Admin: 10/14/21 06:24 Dose: 650 mg Documented by: Allopurinol (Allopurinol 100 Mg Tab) 200 mg PO DAILY [facility] Stop: 11/11/21 08:59 Last Admin: 10/14/21 08:37 Dose: 200 mg Documented by: Aspirin (Aspirin 81 Mg Ectab) 81 mg PO Q2D@0900 [facility] Stop: 11/11/21 08:59 Last Admin: 10/14/21 08:37 Dose: 81 mg Documented by: Cephalexin HCl (Cephalexin 500 Mg Cap) 500 mg PO BID [facility] Stop: 10/15/21 21:59 Last Admin: 10/14/21 08:37 Dose: 500 mg Documented by: Cyanocobalamin (Cyanocobalamin (B-12) 500 Mcg Tablet) 1,000 mcg PO QAM [facility] Stop: 11/11/21 08:59 Last Admin: 10/14/21 08:37 Dose: 1,000 mcg Documented by: Dextrose (Dextrose 50% 50 Ml Syringe) 25 - 50 ml IV UD PRN; Protocol PRN Reason: Hypoglycemia Protocol Stop: 11/11/21 00:14 Diclofenac Sodium (Diclofenac Sod 1% Gel 100 Gm Tube) 2 gm EXT Q8H [facility]; Protocol Stop: 11/11/21 14:44 Last Admin: 10/14/21 14:33 Dose: 2 gm Documented by: Furosemide (Furosemide 40 Mg Tab) 40 mg PO DAILY [facility] Stop: 11/11/21 08:59 Last Admin: 10/14/21 08:37 Dose: 40 mg Documented by: Gabapentin (Gabapentin 400 Mg Cap) 400 mg PO HS [facility] Stop: 11/10/21 23:52 Last Admin: 10/13/21 20:52 Dose: 400 mg Documented by: Glucagon (Glucagon For Inj 1 Mg Vial) 1 mg IM UD PRN; Protocol PRN Reason: Hypoglycemia Protocol Stop: 11/11/21 00:14 Glucose (Glucose 40% Gel 15 Gm Tube) 15 - 30 gm PO UD PRN; Protocol PRN Reason: Hypoglycemia Protocol Stop: 11/11/21 00:14 Glucose (Glucose 10 Tabs/Tube) 4 - 8 tabs PO UD PRN; Protocol PRN Reason: Hypoglycemia Protocol Stop: 11/11/21 00:14 Heparin Sodium (Porcine) (Heparin Sod 5,000 Unit/0.5 Ml Vial) 5,000 units SQ Q8 [facility] Stop: 11/10/21 23:52 Last Admin: 10/14/21 14:33 Dose: 5,000 units Documented by: Pantoprazole Sodium 40 mg/ (Dextrose) 100 mls @ 20 mls/hr IV Q5H [facility] Stop: 11/11/21 10:29 Last Admin: 10/14/21 11:35 Dose: 8 mg/hr, 20 mls/hr Documented by: Insulin Aspart (Insulin Aspart Per Unit) 0 units SC ACHS [facility] Stop: 11/11/21 07:29 Last Admin: 10/14/21 12:34 Dose: 3 units Documented by: Isosorbide Mononitrate (Isosorbide [place] Extended Rel 30 Mg Tabcr) 30 mg PO QAM [facility] Stop: 11/11/21 08:59 Last Admin: 10/14/21 08:37 Dose: 30 mg Documented by: Levothyroxine Sodium (Levothyroxine Sodium 125 Mcg Tablet) 125 mcg PO DAILY@0600 [facility] Stop: 11/11/21 05:59 Last Admin: 10/14/21 06:24 Dose: 125 mcg Documented by: Metoprolol Succinate (Metoprolol Succ 50mg Ext Rel Tab) 100 mg PO QAM [facility] Stop: 11/11/21 08:59 Last Admin: 10/14/21 08:37 Dose: 100 mg Documented by: Miscellaneous (Carbohydrates For Hypoglycemia ) 15 - 30 gm PO UD PRN PRN Reason: Hypoglycemia Treatment Stop: 11/11/21 00:14 Nitroglycerin (Nitroglycerin Sl 0.4 Mg/Tab Tab) 0.4 mg SL UD PRN PRN Reason: Chest Pain Stop: 11/10/21 23:52 Polyethylene Glycol (Polyethylene (Miralax) 17 Gm Pack) 17 gm PO DAILY PRN PRN Reason: Constipation Stop: 11/10/21 23:52 Tramadol HCl (Tramadol Hcl 50 Mg Tablet) 50 mg PO TID PRN PRN Reason: Pain Stop: 11/10/21 23:52 Last Admin: 10/13/21 15:34 Dose: 50 mg Documented by: Triamcinolone Acetonide (Triamcinolone Acet 0.1% Cr 15 Gm Tube) 1 appln TOP BID [facility] Stop: 11/10/21 23:52 Last Admin: 10/14/21 08:38 Dose: 1 appln Documented by:
[2021-10-14] MEDS: GABAPENTIN 400 MG CAP PO SCH (20:45)
[2021-10-15] MEDS: PANTOprazole 40 MG in DEXTROSE 5% 100 ML IV SCH ×6 (00:01→23:43)
[2021-10-15] MEDS: INSULIN ASPART PER UNIT SC SCH ×5 (00:05→21:20)
[2021-10-15] MEDS ORDERED: Nursing to Pharmacy Communication SCH (00:15)
--- NOTE | 2021-10-15 05:36 | Communication Note ---
Date of Service: October 15, 2021 Patient noted to have blood clots in urine without pain. AP Hematuria Rule out UTI Check UA Check a.m. CBC hold aspirin and heparin subcu for now until CBC back Will relay to AM provider.
[2021-10-15] MEDS: LEVOTHYROXINE SODIUM 125 MCG TABLET PO SCH (06:22)
[2021-10-15] MEDS: DICLOFENAC SOD 1% GEL 100 GM TUBE EXT SCH ×3 (06:23→21:22)
[2021-10-15 06:31] LABS: Basophils # (auto) 0.01 K/uL (0-0.2); Basophils % (auto) 0.1 %; Eosinophils # (auto) 0.16 K/uL (0-0.5); Eosinophils % (auto) 1.4 %; Hematocrit (blood only) 34.4 % (42-52); Hemoglobin 11.6 g/dL (14.0-18.0); Immature Granulocytes # (auto) 0.09 K/uL (0.00-0.02); Immature Granulocytes % (auto) 0.8 %; Lymphocytes # (auto) 2.57 K/uL (1.2-3.4); Lymphocytes % (auto) 22.8 %; Mean Corpuscular Hemoglobin 33.3 pg (25-34); Mean Corpuscular Hgb Conc 33.7 g/dL (32-36); Mean Corpuscular Volume 98.9 fL (80-100); Mean Platelet Volume 10.3 fL (7.4-10.4); Monocytes # (auto) 1.63 K/uL (0.11-0.59); Monocytes % (auto) 14.5 %; Neutrophils % (auto) 60.4 %; Platelet Count 285 K/uL (130-400); RDW Coefficient of Variation 16.4 % (11.5-14.5); RDW Standard Deviation 58.9 fL (36.4-46.3); Red Blood Count 3.48 M/uL (4.7-6.1); White Blood Count 11.26 K/uL (4.8-10.8)
[2021-10-15 07:02] LABS: BUN Creatinine Ratio 18.3 (10-20); Calcium 9.5 mg/dl (8.5-10.1); Creatinine Clr Calc Pharmacy 34.6 ml/min; Est GFR (African American) 43.9 ml/min; Est GFR (Non-African American) 37.8 ml/min; Potassium 4.2 mmol/L (3.5-5.1)
[2021-10-15 08:41] LABS: Appearance Urine Clear (Clear); Bacteria Urine Automated Negative (Negative); Bilirubin Urine Negative (Negative); Blood Urine 3+ (Negative); Color Urine Yellow; Epithelial Cell Urine Auto 20-30 /lpf (0-5); Glucose Urine UA Negative (Negative); Ketones Urine Negative (Negative); Leukocyte Esterase Urine Trace (Negative); Nitrite Urine Negative (Negative); Protein Urine Negative (Negative); RBC Urine Automated >30 /hpf (0-4); Specific Gravity Urine 1.009 (1.000-1.030); Urobilinogen Urine Negative (Negative); pH Urine 5.5 (4.5-7.5)
[2021-10-15] MEDS: CYANOCOBALAMIN (B-12) 500 MCG TABLET PO SCH (08:50)
[2021-10-15] MEDS: allopurinoL 100 MG TAB PO SCH (08:50)
[2021-10-15] MEDS: ISOSORBIDE MONO EXTENDED REL 30 MG TABCR PO SCH (08:50)
[2021-10-15] MEDS: METOPROLOL SUCC 50MG EXT REL TAB PO SCH (08:50)
[2021-10-15] MEDS: FUROSEMIDE 40 MG TAB PO SCH (08:50)
[2021-10-15] MEDS: TRIAMCINOLONE ACET 0.1% CR 15 GM TUBE TOP SCH ×2 (08:51→21:21)
[2021-10-15] MEDS: cephALEXin 500 MG CAP PO SCH ×2 (08:51→21:20)
[2021-10-15] MEDS: ACETAMINOPHEN 325 MG TAB PO PRN (15:49)
--- NOTE | 2021-10-15 16:22 | Hospitalist Progress Note ---
Date of Service October 15, 2021 Assessment & Plan (1) Generalized weakness: Plan: Present on admission with weakness and left knee pain CT head showed no acute intracranial abnormality Continue PT/OT-recommended rehab Denies any significant pain as of today 10/13/2021 Await[address] placement Reported to be minimally confused Without any fever and or chills Will send urine for culture and also chest x-ray to rule out any pneumonia He required Maldonado insertion due to urinary retention Will monitor Has severe protein calorie malnutrition BMI is only 25.2 Nutrition consult Abdominal pain AST and ALT normalizes Liver u/s showed Exam compromised by suboptimal penetration. No biliary ductal dilatation identified. Sludge and small stones within the gallbladder. No evidence for acute cholecystitis. Gastro on board -appreciate input and recommendation GI signed off and will not use any steroid for now Denies any abdominal pain and/or nausea or vomiting Has been moving bowels regularly Chronic Elevated troponin: Resting echo-unchanged from prior study and perhaps slight improvement with overall systolic function Patient's advanced age and multiple comorbid conditions likely contributing to his generalized weakness No evidence of ACS Asymptomatic Left knee pain: Possible due to L knee bursitis CT L knee showed No evidence of acute fracture or dislocation. 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: Appears compensated, continue home dose of furosemide Continue ASA, beta-corky, nitrate CKD (chronic kidney disease) stage 4, GFR 15-29 ml/min: Baseline creatinine mid 2s- low 3s Creatinine 1.4 today Follow renal functions Creatinine slightly elevated at 1.65- 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 We will get PT and OT evaluation before discharge-recommended rehab Admission and Anticipated Discharge Date Admission Date: October 11, 2021 Subjective 10/13/2021 The patient was seen and examined in medical telemetry unit in presence of the He has been anorexic and is losing weight Denies any nausea and or vomiting and abdominal pain seems to be stable Feels generally weak and lethargic Left knee pain has been getting better 10/14/2021 The patient was seen and examined in medical telemetry unit He remains stable without any significant complaints Has had physical therapy evaluation and recommended rehab 10/15/2021 The patient was seen and examined in medical telemetry unit He has been complaining of urinary retention with abdominal distention and pain which required Maldonado insertion He remains a little confused since this morning Denies any significant symptoms other than weakness Review of Systems Review of Systems: All systems reviewed and are unremarkable except as noted below Musculoskeletal: No acute arthritis in any of the joints Physical Exam Physical Exam: Lying in bed comfortably Constitutional: well developed, well nourished, + ill appearing and + obese Eyes: PERRL, conjunctivae normal, anicteric sclerae ENMT: external ear and nose normal, oropharynx normal Respiratory: no respiratory distress Auscultation: lungs clear to auscultation bilaterally and + diminished lung sounds Cardiovascular: Rate/Rhythm: regular rate and regular rhythm; not tachycardic Heart Sounds: normal S1 and normal S2; no murmur Extremities: + edema (Trace edema bilaterally) Gastrointestinal (Abdomen): Inspection/Auscultation: normal bowel sounds; abdomen not distended Percussion/Palpation: abdomen soft; abdomen nontender Musculoskeletal: No acute arthritis in any joint and his left knee does not seems to be acutely inflamed Neurologic: Alert and awake. Pleasantly confused Lymphatic: no cervical or axillary lymphadenopathy Results & Data Results & Data ([facility]) Vital Signs (Past 12 Hours) Vital Signs Temp Pulse Pulse Resp BP BP Pulse Ox 10/15/21 15:40 36.6 C 59 L 20 130/69 92 10/15/21 14:55 60 10/15/21 11:22 36.8 C 59 L 19 109/54 L 94 10/15/21 09:17 60 10/15/21 08:02 36.7 C 62 20 122/73 93 10/15/21 06:48 36.7 C 61 16 169/74 H 96 Laboratory Results Short CBC 06/24/22 Range/Units 06:17 WBC 11.26 H (4.8-10.8) K/uL Hgb 11.6 L (14.0-18.0) g/dL Hct 34.4 L (42-52) % Plt Count 285 (130-400) K/uL BMP 10/15/21 06:17 Sodium 133 L Potassium 4.2 D Chloride 100 Carbon Dioxide 25 BUN 30 H Creatinine 1.64 H Glucose 128 H Calcium 9.5 Urine 10/15/21 Range/Units 08:25 Urine Color Yellow Urine Appearance Clear (Clear) Urine pH 5.5 (4.5-7.5) Ur Specific Russell 1.009 (1.000-1.030) Urine Protein Negative (Negative) Urine Glucose (UA) Negative (Negative) Medications Administered Current Inpatient Medications Acetaminophen (Acetaminophen 325 Mg Tab) 650 mg PO Q4H PRN PRN Reason: Pain or Fever Stop: 11/10/21 23:52 Last Admin: 10/15/21 15:49 Dose: 650 mg Documented by: Allopurinol (Allopurinol 100 Mg Tab) 200 mg PO DAILY [facility] Stop: 11/11/21 08:59 Last Admin: 10/15/21 08:50 Dose: 200 mg Documented by: Aspirin (Aspirin 81 Mg Ectab) 81 mg PO Q2D@0900 [facility] Stop: 11/11/21 08:59 Last Admin: 10/14/21 08:37 Dose: 81 mg Documented by: Cephalexin HCl (Cephalexin 500 Mg Cap) 500 mg PO BID [facility] Stop: 10/15/21 21:59 Last Admin: 10/15/21 08:51 Dose: 500 mg Documented by: Cyanocobalamin (Cyanocobalamin (B-12) 500 Mcg Tablet) 1,000 mcg PO QAM [facility] Stop: 11/11/21 08:59 Last Admin: 10/15/21 08:50 Dose: 1,000 mcg Documented by: Dextrose (Dextrose 50% 50 Ml Syringe) 25 - 50 ml IV UD PRN; Protocol PRN Reason: Hypoglycemia Protocol Stop: 11/11/21 00:14 Diclofenac Sodium (Diclofenac Sod 1% Gel 100 Gm Tube) 2 gm EXT Q8H [facility]; Protocol Stop: 11/11/21 14:44 Last Admin: 10/15/21 15:45 Dose: 1 gm Documented by: Furosemide (Furosemide 40 Mg Tab) 40 mg PO DAILY [facility] Stop: 11/11/21 08:59 Last Admin: 10/15/21 08:50 Dose: 40 mg Documented by: Gabapentin (Gabapentin 400 Mg Cap) 400 mg PO HS [facility] Stop: 11/10/21 23:52 Last Admin: 10/14/21 20:45 Dose: 400 mg Documented by: Glucagon (Glucagon For Inj 1 Mg Vial) 1 mg IM UD PRN; Protocol PRN Reason: Hypoglycemia Protocol Stop: 11/11/21 00:14 Glucose (Glucose 40% Gel 15 Gm Tube) 15 - 30 gm PO UD PRN; Protocol PRN Reason: Hypoglycemia Protocol Stop: 11/11/21 00:14 Glucose (Glucose 10 Tabs/Tube) 4 - 8 tabs PO UD PRN; Protocol PRN Reason: Hypoglycemia Protocol Stop: 11/11/21 00:14 Heparin Sodium (Porcine) (Heparin Sod 5,000 Unit/0.5 Ml Vial) 5,000 units SQ Q8 [facility] Stop: 11/10/21 23:52 Last Admin: 10/14/21 20:45 Dose: 5,000 units Documented by: Pantoprazole Sodium 40 mg/ (Dextrose) 100 mls @ 20 mls/hr IV Q5H [facility] Stop: 11/11/21 10:29 Last Admin: 10/15/21 14:25 Dose: 8 mg/hr, 20 mls/hr Documented by: Insulin Aspart (Insulin Aspart Per Unit) 0 units SC [facility] Stop: 11/11/21 07:29 Last Admin: 10/15/21 12:24 Dose: 1 units Documented by: Isosorbide Mononitrate (Isosorbide [place] Extended Rel 30 Mg Tabcr) 30 mg PO QA [facility] Stop: 11/11/21 08:59 Last Admin: 10/15/21 08:50 Dose: 30 mg Documented by: Levothyroxine Sodium (Levothyroxine Sodium 125 Mcg Tablet) 125 mcg PO DAILY@0600 [facility] Stop: 11/11/21 05:59 Last Admin: 10/15/21 06:22 Dose: 125 mcg Documented by: Metoprolol Succinate (Metoprolol Succ 50mg Ext Rel Tab) 100 mg PO QAM [facility] Stop: 11/11/21 08:59 Last Admin: 10/15/21 08:50 Dose: 100 mg Documented by: Miscellaneous (Carbohydrates For Hypoglycemia ) 15 - 30 gm PO UD PRN PRN Reason: Hypoglycemia Treatment Stop: 11/11/21 00:14 Nitroglycerin (Nitroglycerin Sl 0.4 Mg/Tab Tab) 0.4 mg SL UD PRN PRN Reason: Chest Pain Stop: 11/10/21 23:52 Polyethylene Glycol (Polyethylene (Miralax) 17 Gm Pack) 17 gm PO DAILY PRN PRN Reason: Constipation Stop: 11/10/21 23:52 Tramadol HCl (Tramadol Hcl 50 Mg Tablet) 50 mg PO TID PRN PRN Reason: Pain Stop: 11/10/21 23:52 Last Admin: 10/13/21 15:34 Dose: 50 mg Documented by: Triamcinolone Acetonide (Triamcinolone Acet 0.1% Cr 15 Gm Tube) 1 appln TOP BID [facility] Stop: 11/10/21 23:52 Last Admin: 10/15/21 08:51 Dose: 1 appln Documented by:
[2021-10-15] MEDS: GABAPENTIN 400 MG CAP PO SCH (21:21)
--- NOTE | 2021-10-15 21:32 | XRay Report ---
XR chest 1V portable CLINICAL HISTORY: r/o pneumonia TECHNIQUE: Single frontal radiograph of the chest was obtained. Comparison: Comparison is made to chest radiograph 10/11/2021 FINDINGS: Pacemaker defibrillator is seen. Cardiomegaly is noted. The lungs are clear. No evidence of pleural e ffusion or pneumothorax. IMPRESSION: No acute abnormalities and in particular no evidence of pneumonia. ACT 112: Negative or not required by law. Electronically signed by: Ron Denis M.D. 10/15/2021 9:30 PM
[2021-10-16] MEDS: LEVOTHYROXINE SODIUM 125 MCG TABLET PO SCH (05:36)
[2021-10-16] MEDS: PANTOprazole 40 MG in DEXTROSE 5% 100 ML IV SCH ×2 (05:38→10:54)
[2021-10-16] MEDS: DICLOFENAC SOD 1% GEL 100 GM TUBE EXT SCH ×3 (05:38→21:36)
[2021-10-16 07:53] LABS: Basophils # (auto) 0.01 K/uL (0-0.2); Basophils % (auto) 0.1 %; Eosinophils # (auto) 0.28 K/uL (0-0.5); Eosinophils % (auto) 2.6 %; Hematocrit (blood only) 35.5 % (42-52); Hemoglobin 11.7 g/dL (14.0-18.0); Immature Granulocytes # (auto) 0.08 K/uL (0.00-0.02); Immature Granulocytes % (auto) 0.8 %; Lymphocytes # (auto) 2.21 K/uL (1.2-3.4); Lymphocytes % (auto) 20.8 %; Mean Corpuscular Hemoglobin 33.1 pg (25-34); Mean Corpuscular Volume 100.3 fL (80-100); Mean Platelet Volume 10.2 fL (7.4-10.4); Monocytes # (auto) 1.43 K/uL (0.11-0.59); Monocytes % (auto) 13.4 %; Neutrophils # (auto) 6.63 K/uL (1.4-6.5); Neutrophils % (auto) 62.3 %; Platelet Count 290 K/uL (130-400); RDW Coefficient of Variation 16.4 % (11.5-14.5); Red Blood Count 3.54 M/uL (4.7-6.1); White Blood Count 10.64 K/uL (4.8-10.8)
[2021-10-16] MEDS: METOPROLOL SUCC 50MG EXT REL TAB PO SCH (08:03)
[2021-10-16] MEDS: ISOSORBIDE MONO EXTENDED REL 30 MG TABCR PO SCH (08:04)
[2021-10-16] MEDS: CYANOCOBALAMIN (B-12) 500 MCG TABLET PO SCH (08:04)
[2021-10-16] MEDS: allopurinoL 100 MG TAB PO SCH (08:04)
[2021-10-16] MEDS: TRIAMCINOLONE ACET 0.1% CR 15 GM TUBE TOP SCH ×2 (08:04→20:20)
[2021-10-16] MEDS: INSULIN ASPART PER UNIT SC SCH ×4 (08:04→20:20)
[2021-10-16] MEDS: FUROSEMIDE 40 MG TAB PO SCH (08:04)
[2021-10-16 08:14] LABS: Albumin Level 3.1 gm/dl (3.4-5.0); BUN Creatinine Ratio 18.1 (10-20); Bilirubin,Total 2.1 mg/dl (0.2-1.0); Calcium 9.8 mg/dl (8.5-10.1); Creatinine Clr Calc Pharmacy 33.2 ml/min; Est GFR (African American) 41.7 ml/min; Globulin 3.2 gm/dl (2.5-4.0); Potassium 4.1 mmol/L (3.5-5.1); Total Protein 6.3 gm/dl (6.0-8.3)
[2021-10-16] MEDS: ACETAMINOPHEN 325 MG TAB PO PRN (11:40)
--- NOTE | 2021-10-16 14:45 | Hospitalist Progress Note ---
Date of Service October 16, 2021 Assessment & Plan (1) Generalized weakness: Plan: Present on admission with weakness and left knee pain CT head showed no acute intracranial abnormality Continue PT/OT-recommended rehab Denies any significant pain as of today 10/13/2021 Awaiting placement Reported to be minimally confused Without any fever and or chills Will send urine for culture and also chest x-ray to rule out any pneumonia He required Maldonado insertion due to urinary retention Will monitor-the confusion resolved No signs and or symptoms of infection-urine culture is negative and chest x-ray is negative without any elevation of the white count Has severe protein calorie malnutrition BMI is only 25.2 Nutrition consult Abdominal pain AST and ALT normalizes Liver u/s showed Exam compromised by suboptimal penetration. No biliary ductal dilatation identified. Sludge and small stones within the gallbladder. No evidence for acute cholecystitis. Gastro on board -appreciate input and recommendation GI signed off and will not use any steroid for now Denies any abdominal pain and/or nausea or vomiting Has been moving bowels regularly Chronic Elevated troponin: Resting echo-unchanged from prior study and perhaps slight improvement with overall systolic function Patient's advanced age and multiple comorbid conditions likely contributing to his generalized weakness No evidence of ACS Asymptomatic Left knee pain: Possible due to L knee bursitis CT L knee showed No evidence of acute fracture or dislocation. 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: Appears compensated, continue home dose of furosemide Continue ASA, beta-corky, nitrate CKD (chronic kidney disease) stage 4, GFR 15-29 ml/min: Baseline creatinine mid 2s- low 3s Creatinine 1.4 today Follow renal functions Creatinine slightly elevated at 1.65- 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 We will get PT and OT evaluation before discharge-recommended rehab Admission and Anticipated Discharge Date Admission Date: October 11, 2021 Subjective 10/13/2021 The patient was seen and examined in medical telemetry unit in presence of the He has been anorexic and is losing weight Denies any nausea and or vomiting and abdominal pain seems to be stable Feels generally weak and lethargic Left knee pain has been getting better 10/14/2021 The patient was seen and examined in medical telemetry unit He remains stable without any significant complaints Has had physical therapy evaluation and recommended rehab 10/15/2021 The patient was seen and examined in medical telemetry unit He has been complaining of urinary retention with abdominal distention and pain which required Maldonado insertion He remains a little confused since this morning Denies any significant symptoms other than weakness 10/16/2021 The patient was seen and examined in medical telemetry unit He has been a little better compared with yesterday Denies any more confusion but remains generally weak No fever and or chills and chest x-ray remains unremarkable for any pneumonia Review of Systems Review of Systems: All systems reviewed and are unremarkable except as noted below Musculoskeletal: No acute arthritis in any of the joints Physical Exam Physical Exam: Lying in bed comfortably Constitutional: well developed, well nourished, + ill appearing and + obese Eyes: PERRL, conjunctivae normal, anicteric sclerae ENMT: external ear and nose normal, oropharynx normal Respiratory: no respiratory distress Auscultation: lungs clear to auscultation bilaterally and + diminished lung sounds Cardiovascular: Rate/Rhythm: regular rate and regular rhythm; not tachycardic Heart Sounds: normal S1 and normal S2; no murmur Extremities: + edema (Trace edema bilaterally) Gastrointestinal (Abdomen): Inspection/Auscultation: normal bowel sounds; abdomen not distended Percussion/Palpation: abdomen soft; abdomen nontender Musculoskeletal: Left knee joint is not swollen. No fluid in the knee joint and is minimally tender on palpation Neurologic: Alert, awake and oriented x3. Generally weak with no focal neurodeficit Lymphatic: no cervical or axillary lymphadenopathy Results & Data Results & Data ([facility]) Vital Signs (Past 12 Hours) Vital Signs Temp Pulse Pulse Resp BP BP Pulse Ox 10/16/21 11:51 36.4 C L 59 L 18 130/66 93 10/16/21 07:56 36.8 C 59 L 20 138/72 93 10/16/21 07:50 61 10/16/21 03:06 36.8 C 60 18 131/67 97 Laboratory Results Short CBC 10/16/21 Range/Units 07:13 WBC 10.64 (4.8-10.8) K/uL Hgb 11.7 L (14.0-18.0) g/dL Hct 35.5 L (42-52) % Plt Count 290 (130-400) K/uL BMP 10/16/21 07:13 Sodium 134 L Potassium 4.1 Chloride 101 Carbon Dioxide 28 BUN 31 H Creatinine 1.71 H Glucose 128 H Calcium 9.8 Liver Function 10/16/21 Range/Units 07:13 Total Bilirubin 2.1 H (0.2-1.0) mg/dl AST 30 (13-39) U/L ALT 24 (7-52) U/L Alkaline Phosphatase 360 H (34-104) U/L Albumin 3.1 L (3.4-5.0) gm/dl Medications Administered Current Inpatient Medications Acetaminophen (Acetaminophen 325 Mg Tab) 650 mg PO Q4H PRN PRN Reason: Pain or Fever Stop: 11/10/21 23:52 Last Admin: 10/16/21 11:40 Dose: 650 mg Documented by: Allopurinol (Allopurinol 100 Mg Tab) 200 mg PO DAILY [facility] Stop: 11/11/21 08:59 Last Admin: 10/16/21 08:04 Dose: 200 mg Documented by: Aspirin (Aspirin 81 Mg Ectab) 81 mg PO Q2D@0900 [facility] Stop: 11/11/21 08:59 Last Admin: 10/14/21 08:37 Dose: 81 mg Documented by: Cyanocobalamin (Cyanocobalamin (B-12) 500 Mcg Tablet) 1,000 mcg PO QAM [facility] Stop: 11/11/21 08:59 Last Admin: 10/16/21 08:04 Dose: 1,000 mcg Documented by: Dextrose (Dextrose 50% 50 Ml Syringe) 25 - 50 ml IV UD PRN; Protocol PRN Reason: Hypoglycemia Protocol Stop: 11/11/21 00:14 Diclofenac Sodium (Diclofenac Sod 1% Gel 100 Gm Tube) 2 gm EXT Q8H [facility]; Protocol Stop: 11/11/21 14:44 Last Admin: 10/16/21 05:38 Dose: 2 gm Documented by: Furosemide (Furosemide 40 Mg Tab) 40 mg PO DAILY [facility] Stop: 11/11/21 08:59 Last Admin: 10/16/21 08:04 Dose: 40 mg Documented by: Gabapentin (Gabapentin 400 Mg Cap) 400 mg PO HS [facility] Stop: 11/10/21 23:52 Last Admin: 10/15/21 21:21 Dose: 400 mg Documented by: Glucagon (Glucagon For Inj 1 Mg Vial) 1 mg IM UD PRN; Protocol PRN Reason: Hypoglycemia Protocol Stop: 11/11/21 00:14 Glucose (Glucose 40% Gel 15 Gm Tube) 15 - 30 gm PO UD PRN; Protocol PRN Reason: Hypoglycemia Protocol Stop: 11/11/21 00:14 Glucose (Glucose 10 Tabs/Tube) 4 - 8 tabs PO UD PRN; Protocol PRN Reason: Hypoglycemia Protocol Stop: 11/11/21 00:14 Heparin Sodium (Porcine) (Heparin Sod 5,000 Unit/0.5 Ml Vial) 5,000 units SQ Q8 [facility] Stop: 11/10/21 23:52 Last Admin: 10/14/21 20:45 Dose: 5,000 units Documented by: Insulin Aspart (Insulin Aspart Per Unit) 0 units SC [facility] Stop: 11/11/21 07:29 Last Admin: 10/16/21 11:53 Dose: Not Given Documented by: Isosorbide Mononitrate (Isosorbide [place] Extended Rel 30 Mg Tabcr) 30 mg PO [facility] Stop: 11/11/21 08:59 Last Admin: 10/16/21 08:04 Dose: 30 mg Documented by: Levothyroxine Sodium (Levothyroxine Sodium 125 Mcg Tablet) 125 mcg PO DAILY@0600 [facility] Stop: 11/11/21 05:59 Last Admin: 10/16/21 05:36 Dose: 125 mcg Documented by: Metoprolol Succinate (Metoprolol Succ 50mg Ext Rel Tab) [facility] [place]: 11/11/21 08:59 Last Admin: 10/16/21 08:03 Dose: 100 mg Documented by: Miscellaneous (Carbohydrates For Hypoglycemia ) 15 - 30 gm PO UD PRN PRN Reason: Hypoglycemia Treatment Stop: 11/11/21 00:14 Nitroglycerin (Nitroglycerin Sl 0.4 Mg/Tab Tab) 0.4 mg SL UD PRN PRN Reason: Chest Pain Stop: 11/10/21 23:52 Pantoprazole Sodium (Pantoprazole 40 Mg Tab) 40 mg PO BID [facility] Stop: 11/15/21 20:59 Polyethylene Glycol (Polyethylene (Miralax) 17 Gm Pack) 17 gm PO DAILY PRN PRN Reason: Constipation Stop: 11/10/21 23:52 Tramadol HCl (Tramadol Hcl 50 Mg Tablet) 50 mg PO TID PRN PRN Reason: Pain Stop: 11/10/21 23:52 Last Admin: 10/13/21 15:34 Dose: 50 mg Documented by: Triamcinolone Acetonide (Triamcinolone Acet 0.1% Cr 15 Gm Tube) 1 appln TOP BID [facility] Stop: 11/10/21 23:52 Last Admin: 10/16/21 08:04 Dose: 1 appln Documented by:
[2021-10-16] MEDS: PANTOprazole 40 MG TAB PO SCH (20:20)
[2021-10-16] MEDS: GABAPENTIN 400 MG CAP PO SCH (20:20)
[2021-10-17] MEDS: LEVOTHYROXINE SODIUM 125 MCG TABLET PO SCH (05:52)
[2021-10-17] MEDS: DICLOFENAC SOD 1% GEL 100 GM TUBE EXT SCH ×3 (05:53→22:05)
[2021-10-17] MEDS: INSULIN ASPART PER UNIT SC SCH ×4 (07:30→21:36)
[2021-10-17] MEDS: CYANOCOBALAMIN (B-12) 500 MCG TABLET PO SCH (09:30)
[2021-10-17] MEDS: METOPROLOL SUCC 50MG EXT REL TAB PO SCH (09:30)
[2021-10-17] MEDS: FUROSEMIDE 40 MG TAB PO SCH (09:30)
[2021-10-17] MEDS: allopurinoL 100 MG TAB PO SCH (09:30)
[2021-10-17] MEDS: TRIAMCINOLONE ACET 0.1% CR 15 GM TUBE TOP SCH ×2 (09:30→21:03)
[2021-10-17] MEDS: ISOSORBIDE MONO EXTENDED REL 30 MG TABCR PO SCH (09:30)
[2021-10-17] MEDS: PANTOprazole 40 MG TAB PO SCH ×2 (09:30→21:03)
--- NOTE | 2021-10-17 14:41 | Hospitalist Progress Note ---
Date of Service October 17, 2021 Assessment & Plan (1) Generalized weakness: Plan: Present on admission with weakness and left knee pain CT head showed no acute intracranial abnormality Continue PT/OT-recommended rehab Denies any significant pain as of today 10/13/2021 Awaiting placement-remains stable Reported to be minimally confused Without any fever and or chills Will send urine for culture and also chest x-ray to rule out any pneumonia He required Maldonado insertion due to urinary retention Will monitor-the confusion resolved No signs and or symptoms of infection-urine culture is negative and chest x-ray is negative without any elevation of the white count No more confusion Has severe protein calorie malnutrition BMI is only 25.2 Nutrition consult Abdominal pain AST and ALT normalizes Liver u/s showed Exam compromised by suboptimal penetration. No biliary ductal dilatation identified. Sludge and small stones within the gallbladder. No evidence for acute cholecystitis. Gastro on board -appreciate input and recommendation GI signed off and will not use any steroid for now Denies any abdominal pain and/or nausea or vomiting Has been moving bowels regularly Chronic Elevated troponin: Resting echo-unchanged from prior study and perhaps slight improvement with overall systolic function Patient's advanced age and multiple comorbid conditions likely contributing to his generalized weakness No evidence of ACS Asymptomatic Left knee pain: Possible due to L knee bursitis CT L knee showed No evidence of acute fracture or dislocation. 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: Appears compensated, continue home dose of furosemide Continue ASA, beta-corky, nitrate CKD (chronic kidney disease) stage 4, GFR 15-29 ml/min: Baseline creatinine mid 2s- low 3s Creatinine 1.4 today Follow renal functions Creatinine slightly elevated at 1.65- 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 We will get PT and OT evaluation before discharge-recommended rehab Admission and Anticipated Discharge Date Admission Date: October 11, 2021 Subjective 10/13/2021 The patient was seen and examined in medical telemetry unit in presence of the He has been anorexic and is losing weight Denies any nausea and or vomiting and abdominal pain seems to be stable Feels generally weak and lethargic Left knee pain has been getting better 10/14/2021 The patient was seen and examined in medical telemetry unit He remains stable without any significant complaints Has had physical therapy evaluation and recommended rehab 10/15/2021 The patient was seen and examined in medical telemetry unit He has been complaining of urinary retention with abdominal distention and pain which required Maldonado insertion He remains a little confused since this morning Denies any significant symptoms other than weakness 10/16/2021 The patient was seen and examined in medical telemetry unit He has been a little better compared with yesterday Denies any more confusion but remains generally weak No fever and or chills and chest x-ray remains unremarkable for any pneumonia 10/17/2021 Patient was seen and examined in medical telemetry unit He has been feeling much better and there is no more confusion Did not have any recurrence of infection Review of Systems Review of Systems: All systems reviewed and are unremarkable except as noted below Musculoskeletal: No acute arthritis in any of the joints Physical Exam Physical Exam: Lying in bed comfortably Constitutional: well developed, well nourished, + ill appearing and + obese Eyes: PERRL, conjunctivae normal, anicteric sclerae ENMT: external ear and nose normal, oropharynx normal Respiratory: no respiratory distress Auscultation: lungs clear to auscultation bilaterally and + diminished lung sounds Cardiovascular: Rate/Rhythm: regular rate and regular rhythm; not tachycardic Heart Sounds: normal S1 and normal S2; no murmur Extremities: + edema (Trace edema bilaterally) Gastrointestinal (Abdomen): Inspection/Auscultation: normal bowel sounds; abdomen not distended Percussion/Palpation: abdomen soft; abdomen nontender Musculoskeletal: Left knee joint is much improved without any tenderness and has only minimal pain Neurologic: Alert, awake and oriented x3. No focal sensory or no motor deficit appreciated Lymphatic: no cervical or axillary lymphadenopathy Results & Data Results & Data ([facility]) Vital Signs (Past 12 Hours) Vital Signs Temp Pulse Pulse Resp BP Pulse Ox 10/17/21 09:31 64 126/70 10/17/21 09:00 63 10/17/21 07:50 36.8 C 60 20 127/66 95 10/17/21 03:45 36.7 C 60 18 129/69 97 Medications Administered Current Inpatient Medications Acetaminophen (Acetaminophen 325 Mg Tab) 650 mg PO Q4H PRN PRN Reason: Pain or Fever Stop: 11/10/21 23:52 Last Admin: 10/16/21 11:40 Dose: 650 mg Documented by: Allopurinol (Allopurinol 100 Mg Tab) 200 mg PO DAILY [facility] Stop: 11/11/21 08:59 Last Admin: 10/17/21 09:30 Dose: 200 mg Documented by: Aspirin (Aspirin 81 Mg Ectab) 81 mg PO Q2D@0900 [facility] Stop: 11/11/21 08:59 Last Admin: 10/14/21 08:37 Dose: 81 mg Documented by: Cyanocobalamin (Cyanocobalamin (B-12) 500 Mcg Tablet) 1,000 mcg PO QAM [facility] Stop: 11/11/21 08:59 Last Admin: 10/17/21 09:30 Dose: 1,000 mcg Documented by: Dextrose (Dextrose 50% 50 Ml Syringe) 25 - 50 ml IV UD PRN; Protocol PRN Reason: Hypoglycemia Protocol Stop: 11/11/21 00:14 Diclofenac Sodium (Diclofenac Sod 1% Gel 100 Gm Tube) 2 gm EXT Q8H [facility]; Protocol Stop: 11/11/21 14:44 Last Admin: 10/17/21 14:31 Dose: 2 gm Documented by: Furosemide (Furosemide 40 Mg Tab) 40 mg PO DAILY [facility] Stop: 11/11/21 08:59 Last Admin: 10/17/21 09:30 Dose: 40 mg Documented by: Gabapentin (Gabapentin 400 Mg Cap) 400 mg PO HS [facility] Stop: 11/10/21 23:52 Last Admin: 10/16/21 20:20 Dose: 400 mg Documented by: Glucagon (Glucagon For Inj 1 Mg Vial) 1 mg IM UD PRN; Protocol PRN Reason: Hypoglycemia Protocol Stop: 11/11/21 00:14 Glucose (Glucose 40% Gel 15 Gm Tube) 15 - 30 gm PO UD PRN; Protocol PRN Reason: Hypoglycemia Protocol Stop: 11/11/21 00:14 Glucose (Glucose 10 Tabs/Tube) 4 - 8 tabs PO UD PRN; Protocol PRN Reason: Hypoglycemia Protocol Stop: 11/11/21 00:14 Heparin Sodium (Porcine) (Heparin Sod 5,000 Unit/0.5 Ml Vial) 5,000 units SQ Q8 [facility] Stop: 11/10/21 23:52 Last Admin: 10/14/21 20:45 Dose: 5,000 units Documented by: Insulin Aspart (Insulin Aspart Per Unit) 0 units SC ACHS [facility] Stop: 11/11/21 07:29 Last Admin: 10/17/21 12:08 Dose: Not Given Documented by: Isosorbide Mononitrate (Isosorbide [place] Extended Rel 30 Mg Tabcr) [facility] Stop: 11/11/21 08:59 Last Admin: 10/17/21 09:30 Dose: 30 mg Documented by: Levothyroxine Sodium (Levothyroxine Sodium 125 Mcg Tablet) 125 mcg PO DAILY@0600 [facility] Stop: 11/11/21 05:59 Last Admin: 10/17/21 05:52 Dose: 125 mcg Documented by: Metoprolol Succinate (Metoprolol Succ 50mg Ext Rel Tab) [facility] [place] Stop: 11/11/21 08:59 Last Admin: 10/17/21 09:30 Dose: 100 mg Documented by: Miscellaneous (Carbohydrates For Hypoglycemia ) 15 - 30 gm PO UD PRN PRN Reason: Hypoglycemia Treatment Stop: 11/11/21 00:14 Nitroglycerin (Nitroglycerin Sl 0.4 Mg/Tab Tab) 0.4 mg SL UD PRN PRN Reason: Chest Pain Stop: 11/10/21 23:52 Pantoprazole Sodium (Pantoprazole 40 Mg Tab) 40 mg PO BID [facility] Stop: 11/15/21 20:59 Last Admin: 10/17/21 09:30 Dose: 40 mg Documented by: Polyethylene Glycol (Polyethylene (Miralax) 17 Gm Pack) 17 gm PO DAILY PRN PRN Reason: Constipation Stop: 11/10/21 23:52 Tramadol HCl (Tramadol Hcl 50 Mg Tablet) 50 mg PO TID PRN PRN Reason: Pain Stop: 07/20/22 23:52 Last Admin: 10/13/21 15:34 Dose: 50 mg Documented by: Triamcinolone Acetonide (Triamcinolone Acet 0.1% Cr 15 Gm Tube) 1 appln TOP BID [facility] Stop: 11/10/21 23:52 Last Admin: 10/17/21 09:30 Dose: 1 appln Documented by:
[2021-10-17] MEDS: ACETAMINOPHEN 325 MG TAB PO PRN (19:38)
[2021-10-17] MEDS: GABAPENTIN 400 MG CAP PO SCH (21:03)
[2021-10-18] MEDS: DICLOFENAC SOD 1% GEL 100 GM TUBE EXT SCH ×3 (05:56→21:19)
[2021-10-18] MEDS: LEVOTHYROXINE SODIUM 125 MCG TABLET PO SCH (05:56)
[2021-10-18] MEDS: INSULIN ASPART PER UNIT SC SCH ×4 (07:43→23:35)
[2021-10-18] MEDS: METOPROLOL SUCC 50MG EXT REL TAB PO SCH (08:04)
[2021-10-18] MEDS: FUROSEMIDE 40 MG TAB PO SCH (08:04)
[2021-10-18] MEDS: allopurinoL 100 MG TAB PO SCH (08:04)
[2021-10-18] MEDS: CYANOCOBALAMIN (B-12) 500 MCG TABLET PO SCH (08:05)
[2021-10-18] MEDS: ISOSORBIDE MONO EXTENDED REL 30 MG TABCR PO SCH (08:05)
[2021-10-18] MEDS: PANTOprazole 40 MG TAB PO SCH ×2 (08:05→21:18)
[2021-10-18] MEDS: TRIAMCINOLONE ACET 0.1% CR 15 GM TUBE TOP SCH ×2 (08:06→21:19)
[2021-10-18] MEDS: traMADol HCL 50 MG TABLET PO PRN (12:09)
--- NOTE | 2021-10-18 15:55 | Hospitalist Progress Note ---
Date of Service October 18, 2021 Assessment & Plan (1) Generalized weakness: Plan: Present on admission with weakness and left knee pain CT head showed no acute intracranial abnormality Continue PT/OT-recommended rehab Denies any significant pain as of today 10/13/2021 Awaiting placement-remains stable No new issues except ongoing left knee pain Left knee pain: Possible due to L knee bursitis CT L knee showed No evidence of acute fracture or dislocation. Superficial edema is seen in the anterior aspect of the knee which is nonspecific, Ortho on board No surgical intervention PT/OT eval -clinically needs better and the patient was wondering for possible intra-articular injection We will leave it up to orthopedic surgeon-knee pain is much better Has been getting local diclofenac cream No swelling and/or significant pain Complains to have worse pain with pressure on the knee joint with associated abdominal discomfort and nausea Will ask orthopedic surgeon to reevaluate the knee joint for any further instruction Reported to be minimally confused Without any fever and or chills Will send urine for culture and also chest x-ray to rule out any pneumonia He required Maldonado insertion due to urinary retention Will monitor-the confusion resolved No signs and or symptoms of infection-urine culture is negative and chest x-ray is negative without any elevation of the white count No more confusion Has severe protein calorie malnutrition BMI is only 25.2 Nutrition consult Abdominal pain AST and ALT normalizes Liver u/s showed Exam compromised by suboptimal penetration. No biliary ductal dilatation identified. Sludge and small stones within the gallbladder. No evidence for acute cholecystitis. 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: Appears compensated, continue home dose of furosemide Continue ASA, beta-corky, nitrate CKD (chronic kidney disease) stage 4, GFR 15-29 ml/min: Baseline creatinine mid 2s- low 3s Creatinine 1.4 today Follow renal functions Creatinine slightly elevated at 1.65- 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 We will get PT and OT evaluation before discharge-recommended rehab Admission and Anticipated Discharge Date Admission Date: October 11, 2021 Subjective 10/13/2021 The patient was seen and examined in medical telemetry unit in presence of the He has been anorexic and is losing weight Denies any nausea and or vomiting and abdominal pain seems to be stable Feels generally weak and lethargic Left knee pain has been getting better 10/14/2021 The patient was seen and examined in medical telemetry unit He remains stable without any significant complaints Has had physical therapy evaluation and recommended rehab 10/15/2021 The patient was seen and examined in medical telemetry unit He has been complaining of urinary retention with abdominal distention and pain which required Maldonado insertion He remains a little confused since this morning Denies any significant symptoms other than weakness 10/16/2021 The patient was seen and examined in medical telemetry unit He has been a little better compared with yesterday Denies any more confusion but remains generally weak No fever and or chills and chest x-ray remains unremarkable for any pneumonia 10/17/2021 Patient was seen and examined in medical telemetry unit He has been feeling much better and there is no more confusion Did not have any recurrence of infection 10/18/2021 The patient was seen and examined in medical telemetry unit He has been much better but complains to have severe pain in the left knee once standing and putting pressure on left knee Denies any other symptoms No fever and or chills and no source of infection Review of Systems Review of Systems: All systems reviewed and are unremarkable except as noted below Musculoskeletal: No acute arthritis in any of the joints Physical Exam Physical Exam: Lying in bed comfortably Constitutional: well developed, well nourished, + ill appearing and + obese Eyes: PERRL, conjunctivae normal, anicteric sclerae ENMT: external ear and nose normal, oropharynx normal Respiratory: no respiratory distress Auscultation: lungs clear to auscultation bilaterally and + diminished lung sounds Cardiovascular: Rate/Rhythm: regular rate and regular rhythm; not tachycardic Heart Sounds: normal S1 and normal S2; no murmur Extremities: + edema (Trace edema bilaterally) Gastrointestinal (Abdomen): Inspection/Auscultation: normal bowel sounds; abdomen not distended Percussion/Palpation: abdomen soft; abdomen nontender Musculoskeletal: Knee: + joint line tenderness (Minimally tender medial patellar and anterior tibial area) Neurologic: Alert, awake and oriented x3. Generally weak but no focal neurodeficit Lymphatic: no cervical or axillary lymphadenopathy Results & Data Results & Data ([facility]) Vital Signs (Past 12 Hours) Vital Signs Temp Pulse Pulse Resp BP BP Pulse Ox 10/18/21 14:53 60 10/18/21 11:21 35.7 C L 70 16 116/68 98 10/18/21 07:23 37.0 C 60 18 138/73 97 10/18/21 07:02 60 10/18/21 04:08 36.5 C 60 20 134/70 93 Medications Administered Current Inpatient Medications Acetaminophen (Acetaminophen 325 Mg Tab) 650 mg PO Q4H PRN PRN Reason: Pain or Fever Stop: 11/10/21 23:52 Last Admin: 10/17/21 19:38 Dose: 650 mg Documented by: Allopurinol (Allopurinol 100 Mg Tab) 200 mg PO DAILY [facility] Stop: 11/11/21 08:59 Last Admin: 10/18/21 08:04 Dose: 200 mg Documented by: Aspirin (Aspirin 81 Mg Ectab) 81 mg PO Q2D@0900 [facility] Stop: 11/11/21 08:59 Last Admin: 10/14/21 08:37 Dose: 81 mg Documented by: Cyanocobalamin (Cyanocobalamin (B-12) 500 Mcg Tablet) 1,000 mcg PO QAM [facility] Stop: 11/11/21 08:59 Last Admin: 10/18/21 08:05 Dose: 1,000 mcg Documented by: Dextrose (Dextrose 50% 50 Ml Syringe) 25 - 50 ml IV UD PRN; Protocol PRN Reason: Hypoglycemia Protocol Stop: 11/11/21 00:14 Diclofenac Sodium (Diclofenac Sod 1% Gel 100 Gm Tube) 2 gm EXT Q8H [facility]; Protocol Stop: 11/11/21 14:44 Last Admin: 10/18/21 14:36 Dose: 2 gm Documented by: Furosemide (Furosemide 40 Mg Tab) 40 mg PO DAILY [facility] Stop: 11/11/21 08:59 Last Admin: 10/18/21 08:04 Dose: 40 mg Documented by: Gabapentin (Gabapentin 400 Mg Cap) 400 mg PO HS [facility] Stop: 11/10/21 23:52 Last Admin: 10/17/21 21:03 Dose: 400 mg Documented by: Glucagon (Glucagon For Inj 1 Mg Vial) 1 mg IM UD PRN; Protocol PRN Reason: Hypoglycemia Protocol Stop: 11/11/21 00:14 Glucose (Glucose 40% Gel 15 Gm Tube) 15 - 30 gm PO UD PRN; Protocol PRN Reason: Hypoglycemia Protocol Stop: 11/11/21 00:14 Glucose (Glucose 10 Tabs/Tube) 4 - 8 tabs PO UD PRN; Protocol PRN Reason: Hypoglycemia Protocol Stop: 11/11/21 00:14 Heparin Sodium (Porcine) (Heparin Sod 5,000 Unit/0.5 Ml Vial) 5,000 units SQ Q8 [facility] Stop: 11/10/21 23:52 Last Admin: 10/14/21 20:45 Dose: 5,000 units Documented by: Insulin Aspart (Insulin Aspart Per Unit) 0 units SC ACHS [facility] Stop: 11/11/21 07:29 Last Admin: 10/18/21 12:06 Dose: Not Given Documented by: Isosorbide Mononitrate (Isosorbide [place] Extended Rel 30 Mg Tabcr) 30 mg PO QAM [facility] Stop: 11/11/21 08:59 Last Admin: 10/18/21 08:05 Dose: 30 mg Documented by: Levothyroxine Sodium (Levothyroxine Sodium 125 Mcg Tablet) 125 mcg PO DAILY@0600 [facility] Stop: 11/11/21 05:59 Last Admin: 10/18/21 05:56 Dose: 125 mcg Documented by: Metoprolol Succinate (Metoprolol Succ 50mg Ext Rel Tab) 100 mg PO QAM [facility] Stop: 11/11/21 08:59 Last Admin: 10/18/21 08:04 Dose: 100 mg Documented by: Miscellaneous (Carbohydrates For Hypoglycemia ) 15 - 30 gm PO UD PRN PRN Reason: Hypoglycemia Treatment Stop: 11/11/21 00:14 Nitroglycerin (Nitroglycerin Sl 0.4 Mg/Tab Tab) 0.4 mg SL UD PRN PRN Reason: Chest Pain Stop: 11/10/21 23:52 Pantoprazole Sodium (Pantoprazole 40 Mg Tab) 40 mg PO BID [facility] Stop: 11/15/21 20:59 Last Admin: 10/18/21 08:05 Dose: 40 mg Documented by: Polyethylene Glycol (Polyethylene (Miralax) 17 Gm Pack) 17 gm PO DAILY PRN PRN Reason: Constipation Stop: 11/10/21 23:52 Tramadol HCl (Tramadol Hcl 50 Mg Tablet) 50 mg PO TID PRN PRN Reason: Pain Stop: 11/10/21 23:52 Last Admin: 10/18/21 12:09 Dose: 50 mg Documented by: Triamcinolone Acetonide (Triamcinolone Acet 0.1% Cr 15 Gm Tube) 1 appln TOP BID [facility] Stop: 11/10/21 23:52 Last Admin: 10/18/21 08:06 Dose: 1 appln Documented by:
[2021-10-18] MEDS: GABAPENTIN 400 MG CAP PO SCH (21:18)
[2021-10-18] MEDS: ACETAMINOPHEN 325 MG TAB PO PRN (23:56)
[2021-10-19] MEDS: LEVOTHYROXINE SODIUM 125 MCG TABLET PO SCH (05:43)
[2021-10-19] MEDS: DICLOFENAC SOD 1% GEL 100 GM TUBE EXT SCH ×3 (05:44→22:31)
[2021-10-19] MEDS: METOPROLOL SUCC 50MG EXT REL TAB PO SCH (08:42)
[2021-10-19] MEDS: allopurinoL 100 MG TAB PO SCH (08:42)
[2021-10-19] MEDS: CYANOCOBALAMIN (B-12) 500 MCG TABLET PO SCH (08:42)
[2021-10-19] MEDS: FUROSEMIDE 40 MG TAB PO SCH (08:42)
[2021-10-19] MEDS: INSULIN ASPART PER UNIT SC SCH ×4 (08:43→21:14)
[2021-10-19] MEDS: ISOSORBIDE MONO EXTENDED REL 30 MG TABCR PO SCH (08:43)
[2021-10-19] MEDS: TRIAMCINOLONE ACET 0.1% CR 15 GM TUBE TOP SCH ×2 (08:43→20:19)
[2021-10-19] MEDS: PANTOprazole 40 MG TAB PO SCH ×2 (08:43→20:18)
[2021-10-19] MEDS: traMADol HCL 50 MG TABLET PO PRN ×3 (08:45→20:58)
--- NOTE | 2021-10-19 09:27 | Communication Note ---
Date of Service: October 19, 2021 Pt seen this AM. States his knee continues to feel better. No other complaints. Knee appears benign. No erythema. Minimal to no swelling. Mildly tender on p alpation. Some small bruises noted. Prepatellar bursitis resolving well with current treatment. Does not appear infected. ROM intact with mild discomfort over tibial tubercle. Pt has had multiple falls on this knee over a period of time. Possible small contusion as well as bursitis. Continue current treatment. Follow up with Dr Hancock in the office as outpatient if symptoms continue over time or worsen.
[2021-10-19] MEDS: ACETAMINOPHEN 325 MG TAB PO PRN (11:50)
--- NOTE | 2021-10-19 17:50 | Hospitalist Progress Note ---
Date of Service October 19, 2021 Assessment & Plan (1) Generalized weakness: Plan: Present on admission with weakness and left knee pain CT head showed no acute intracranial abnormality Continue PT/OT-recommended rehab Denies any significant pain as of today 10/13/2021 Awaiting placement-remains stable No new issues except ongoing left knee pain Remains a stable and awaiting placement Left knee pain: Possible due to L knee bursitis CT L knee showed No evidence of acute fracture or dislocation. Superficial edema is seen in the anterior aspect of the knee which is nonspecific, Ortho on board No surgical intervention PT/OT eval -clinically needs better and the patient was wondering for possible intra-articular injection We will leave it up to orthopedic surgeon-knee pain is much better Has been getting local diclofenac cream No swelling and/or significant pain Complains to have worse pain with pressure on the knee joint with associated abdominal discomfort and nausea Will ask orthopedic surgeon to reevaluate the knee joint for any further instruction Appreciate Ortho evaluation Reported to be minimally confused Without any fever and or chills Will send urine for culture and also chest x-ray to rule out any pneumonia He required Maldonado insertion due to urinary retention Will monitor-the confusion resolved No signs and or symptoms of infection-urine culture is negative and chest x-ray is negative without any elevation of the white count No more confusion Has been stable for the last few days Has severe protein calorie malnutrition BMI is only 25.2 Nutrition consult Abdominal pain AST and ALT normalizes Liver u/s showed Exam compromised by suboptimal penetration. No biliary ductal dilatation identified. Sludge and small stones within the gallbladder. No evidence for acute cholecystitis. 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: Appears compensated, continue home dose of furosemide Continue ASA, beta-corky, nitrate CKD (chronic kidney disease) stage 4, GFR 15-29 ml/min: Baseline creatinine mid 2s- low 3s Creatinine 1.4 today Follow renal functions Creatinine slightly elevated at 1.65-1.7 on 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 We will get PT and OT evaluation before discharge-recommended rehab Admission and Anticipated Discharge Date Admission Date: October 11, 2021 Subjective 10/13/2021 The patient was seen and examined in medical telemetry unit in presence of the He has been anorexic and is losing weight Denies any nausea and or vomiting and abdominal pain seems to be stable Feels generally weak and lethargic Left knee pain has been getting better 10/14/2021 The patient was seen and examined in medical telemetry unit He remains stable without any significant complaints Has had physical therapy evaluation and recommended rehab 10/15/2021 The patient was seen and examined in medical telemetry unit He has been complaining of urinary retention with abdominal distention and pain which required Maldonado insertion He remains a little confused since this morning Denies any significant symptoms other than weakness 10/16/2021 The patient was seen and examined in medical telemetry unit He has been a little better compared with yesterday Denies any more confusion but remains generally weak No fever and or chills and chest x-ray remains unremarkable for any pneumonia 10/17/2021 Patient was seen and examined in medical telemetry unit He has been feeling much better and there is no more confusion Did not have any recurrence of infection 10/18/2021 The patient was seen and examined in medical telemetry unit He has been much better but complains to have severe pain in the left knee once standing and putting pressure on left knee Denies any other symptoms No fever and or chills and no source of infection 10/19/2021 The patient was seen and examined in medical telemetry unit He has been feeling much better and is out of bed on a chair He was seen by Ortho and they are not doing anything more for left knee He has been waiting to be transferred Review of Systems Review of Systems: All systems reviewed and are unremarkable except as noted below Musculoskeletal: No acute arthritis in any of the joints Physical Exam Physical Exam: Lying in bed comfortably Constitutional: well developed, well nourished, + ill appearing and + obese Eyes: PERRL, conjunctivae normal, anicteric sclerae ENMT: external ear and nose normal, oropharynx normal Respiratory: no respiratory distress Auscultation: lungs clear to auscultation bilaterally and + diminished lung sounds Cardiovascular: Rate/Rhythm: regular rate and regular rhythm; not tachycardic Heart Sounds: normal S1 and normal S2; no murmur Extremities: + edema (Trace edema bilaterally) Gastrointestinal (Abdomen): Inspection/Auscultation: normal bowel sounds; abdomen not distended Percussion/Palpation: abdomen soft; abdomen nontender Musculoskeletal: Knee: + joint line tenderness (Minimally tender medial patellar and anterior tibial area) Neurologic: Alert, awake and oriented x3. Lymphatic: no cervical or axillary lymphadenopathy Results & Data Results & Data ([facility]) Vital Signs (Past 12 Hours) Vital Signs Temp Pulse Pulse Resp BP BP Pulse Ox 10/19/21 15:38 63 10/19/21 15:35 36.4 C L 61 20 128/69 98 10/19/21 11:15 36.7 C 60 18 122/65 97 10/19/21 07:40 61 10/19/21 06:06 36.4 C L 61 18 128/69 98 Medications Administered Current Inpatient Medications Acetaminophen (Acetaminophen 325 Mg Tab) 650 mg PO Q4H PRN PRN Reason: Pain or Fever Stop: 11/10/21 23:52 Last Admin: 10/19/21 11:50 Dose: 650 mg Documented by: Allopurinol (Allopurinol 100 Mg Tab) 200 mg PO DAILY [facility] Stop: 11/11/21 08:59 Last Admin: 10/19/21 08:42 Dose: 200 mg Documented by: Aspirin (Aspirin 81 Mg Ectab) 81 mg PO Q2D@0900 [facility] Stop: 11/11/21 08:59 Last Admin: 10/14/21 08:37 Dose: 81 mg Documented by: Cyanocobalamin (Cyanocobalamin (B-12) 500 Mcg Tablet) 1,000 mcg PO QAM [facility] Stop: 11/11/21 08:59 Last Admin: 10/19/21 08:42 Dose: 1,000 mcg Documented by: Dextrose (Dextrose 50% 50 Ml Syringe) 25 - 50 ml IV UD PRN; Protocol PRN Reason: Hypoglycemia Protocol Stop: 11/11/21 00:14 Diclofenac Sodium (Diclofenac Sod 1% Gel 100 Gm Tube) 2 gm EXT Q8H [facility]; Protocol Stop: 11/11/21 14:44 Last Admin: 10/19/21 14:48 Dose: 2 gm Documented by: Furosemide (Furosemide 40 Mg Tab) 40 mg PO DAILY [facility] Stop: 11/11/21 08:59 Last Admin: 10/19/21 08:42 Dose: 40 mg Documented by: Gabapentin (Gabapentin 400 Mg Cap) 400 mg PO HS [facility] Stop: 11/10/21 23:52 Last Admin: 10/18/21 21:18 Dose: 400 mg Documented by: Glucagon (Glucagon For Inj 1 Mg Vial) 1 mg IM UD PRN; Protocol PRN Reason: Hypoglycemia Protocol Stop: 11/11/21 00:14 Glucose (Glucose 40% Gel 15 Gm Tube) 15 - 30 gm PO UD PRN; Protocol PRN Reason: Hypoglycemia Protocol Stop: 11/11/21 00:14 Glucose (Glucose 10 Tabs/Tube) 4 - 8 tabs PO UD PRN; Protocol PRN Reason: Hypoglycemia Protocol Stop: 11/11/21 00:14 Heparin Sodium (Porcine) (Heparin Sod 5,000 Unit/0.5 Ml Vial) 5,000 units SQ Q8 [facility] Stop: 11/10/21 23:52 Last Admin: 10/14/21 20:45 Dose: 5,000 units Documented by: Insulin Aspart (Insulin Aspart Per Unit) 0 units SC ACHS [facility] Stop: 11/11/21 07:29 Last Admin: 10/19/21 17:05 Dose: Not Given Documented by: Isosorbide Mononitrate (Isosorbide [place] Extended Rel 30 Mg Tabcr) 30 mg PO [facility] Stop: 11/11/21 08:59 Last Admin: 10/19/21 08:43 Dose: 30 mg Documented by: Levothyroxine Sodium (Levothyroxine Sodium 125 Mcg Tablet) 125 mcg PO DAILY@0600 [facility] Stop: 11/11/21 05:59 Last Admin: 10/19/21 05:43 Dose: 125 mcg Documented by: Metoprolol Succinate (Metoprolol Succ 50mg Ext Rel Tab) 100 mg PO [facility] Stop: 11/11/21 08:59 Last Admin: 10/19/21 08:42 Dose: 100 mg Documented by: Miscellaneous (Carbohydrates For Hypoglycemia ) 15 - 30 gm PO UD PRN PRN Reason: Hypoglycemia Treatment Stop: 11/11/21 00:14 Nitroglycerin (Nitroglycerin Sl 0.4 Mg/Tab Tab) 0.4 mg SL UD PRN PRN Reason: Chest Pain Stop: 11/10/21 23:52 Pantoprazole Sodium (Pantoprazole 40 Mg Tab) 40 mg PO BID [facility] Stop: 11/15/21 20:59 Last Admin: 10/19/21 08:43 Dose: 40 mg Documented by: Polyethylene Glycol (Polyethylene (Miralax) 17 Gm Pack) 17 gm PO DAILY PRN PRN Reason: Constipation Stop: 11/10/21 23:52 Tramadol HCl (Tramadol Hcl 50 Mg Tablet) 50 mg PO TID PRN PRN Reason: Pain Stop: 11/10/21 23:52 Last Admin: 10/19/21 11:50 Dose: 50 mg Documented by: Triamcinolone Acetonide (Triamcinolone Acet 0.1% Cr 15 Gm Tube) 1 appln TOP BID [facility] Stop: 11/10/21 23:52 Last Admin: 10/19/21 08:43 Dose: 1 appln Documented by:
[2021-10-19] MEDS: GABAPENTIN 400 MG CAP PO SCH (20:18)
[2021-10-20] MEDS: ACETAMINOPHEN 325 MG TAB PO PRN (01:26)
[2021-10-20] MEDS: DICLOFENAC SOD 1% GEL 100 GM TUBE EXT SCH (06:14)
[2021-10-20] MEDS: LEVOTHYROXINE SODIUM 125 MCG TABLET PO SCH (06:14)
[2021-10-20] MEDS: INSULIN ASPART PER UNIT SC SCH ×4 (10:32→23:47)
--- NOTE | 2021-10-20 10:33 | Hospitalist Progress Note ---
Date of Service October 20, 2021 Assessment & Plan (1) Generalized weakness: Plan: Multiple chronic medical problems including ILD, DMII, ischemic cardiomyopathy, and CKD Stage 3 and spinal stenosis and BPH with reports Recent workup revealed possible autoimmune hepatitis with steroids declined at this time--there is a follow-up appointment at [facility] for patient. LFTs and hyperbilirubinemia has improved. CT head showed no acute intracranial abnormality Continue PT/OT-recommended rehab Denies any significant pain as of today 10/13/2021 Awaiting placement-remains stable No new issues except ongoing left knee pain Remains a stable and awaiting placement Left knee pain: Possible due to L knee bursitis CT L knee showed No evidence of acute fracture or dislocation. Superficial edema is seen in the anterior aspect of the knee which is nonspecific, Ortho on board No surgical intervention PT/OT eval -clinically needs better No swelling and/or significant pain Complains to have worse pain with pressure on the knee joint with associated abd ominal discomfort and nausea Ortho eval again today and he is continuing to improve. Conservative scheduled Tylenol, ice Abdominal pain-resolved. Liver u/s showed Exam compromised by suboptimal penetration. No biliary ductal dilatation identified. Sludge and small stones within the gallbladder. No evidence for acute cholecystitis. 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: Appears compensated, continue home dose of furosemide Continue ASA, beta-corky, nitrate CKD (chronic kidney disease) stage 4, GFR 15-29 ml/min: Baseline creatinine mid 2s- low 3s Creatinine 1.4 today Follow renal functions Creatinine slightly elevated at 1.65-1.7 on 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 We will get PT and OT evaluation before discharge-recommended rehab [facility] (2) Prepatellar bursitis: (3) Acute urinary retention: (4) History of COVID-19: (5) Autoimmune hepatitis: (6) Ambulatory dysfunction: (7) DM type 2 (diabetes mellitus, type 2): (8) Benign localized prostatic hyperplasia with lower urinary tract symptoms (LUTS): (9) HTN (hypertension): (10) Hx of CABG: (11) PAF (paroxysmal atrial fibrillation): (12) CKD (chronic kidney disease), stage III: (13) DVT prophylaxis: Admission and Anticipated Discharge Date Admission Date: October 11, 2021 Subjective 86 yo M with h/o autoimmune hepatitis and multiple chronic medical problems, admitted multiple times in the past couple of months, presented with weakness and confusion. Patient has persistent left knee pain that he states is not much better than when he came in Uncertain how confused he was but he states that standing on the leg and putting pressure causes a shock like pain to go up the front of the leg thigh There is some minimal bruising present in the anterior inferior patella area. Maldonado still in place-placed on 10/15 for AUR in hospital Pt requesting TOV-known BPH, not on meds for this at home--hypotension with flomax in past Review of Systems Review of Systems: All systems were reviewed and negative except as indicated on HPI above. Physical Exam Physical Exam: CONSTITUTIONAL: WNWD, vitals as above, generally well- appearing, NAD EYES: normal conjunctivae, no scleral icterus ENT: external ear and nose normal,MMM NECK: trachea midline, RESPIRATORY: clear to auscultation bilaterally, no crackles, rales or wheezes, normal respiratory effort CARDIOVASCULAR: regular rate and rhythm, S1 and 2 heard without murmurs, gallops or rubs, no JVD, no peripheral edema, GASTROINTESTINAL: soft, nontender, ND, no guarding MUSCULOSKELETAL: strength 5/5 throughout but there is minimal flexion of left knee, bruising inferior to patella that is minimal. head is normocephalic and atraumatic, SKIN: warm and dry, sequelae of fall from approx 1 week ago on left knee- healing well. NEUROLOGIC: No facial palsy, no dysarthria. CN 2-12 grossly intact, no sensory deficit, normal cognition, normal speech, no tremor PSYCHIATRIC: alert cooperative and oriented to person, place and time. Euthymi c mood, makes good eye contact, language grossly intact, recent and remote memory grossly intact. Results & Data Results & Data ([facility]) Vital Signs (Past 12 Hours) Vital Signs Temp Pulse Pulse Resp BP Pulse Ox 10/20/21 07:34 60 10/20/21 06:38 36.4 C L 60 18 142/69 H 95 10/20/21 04:34 36.4 C L 60 18 122/61 92 10/19/21 23:27 36.6 C 60 18 121/61 93 Medications Administered Current Inpatient Medications Acetaminophen (Acetaminophen 500 Mg Tab) 1,000 mg PO Q8H [facility] Stop: 11/19/21 10:44 Allopurinol (Allopurinol 100 Mg Tab) 200 mg PO DAILY [facility] Stop: 11/11/21 08:59 Last Admin: 10/20/21 10:38 Dose: 200 mg Documented by: Aspirin (Aspirin 81 Mg Ectab) 81 mg PO Q2D@0900 [facility] Stop: 11/11/21 08:59 Last Admin: 10/14/21 08:37 Dose: 81 mg Documented by: Cyanocobalamin (Cyanocobalamin (B-12) 500 Mcg Tablet) 1,000 mcg PO QAM [facility] Stop: 11/11/21 08:59 Last Admin: 10/20/21 10:38 Dose: 1,000 mcg Documented by: Dextrose (Dextrose 50% 50 Ml Syringe) 25 - 50 ml IV UD PRN; Protocol PRN Reason: Hypoglycemia Protocol Stop: 11/11/21 00:14 Diclofenac Sodium (Diclofenac Sod 1% Gel 100 Gm Tube) 2 gm EXT Q8H [facility]; Protocol Stop: 11/11/21 14:44 Last Admin: 10/20/21 06:14 Dose: 2 gm Documented by: Furosemide (Furosemide 40 Mg Tab) 40 mg PO DAILY [facility] Stop: 11/11/21 08:59 Last Admin: 10/20/21 10:39 Dose: 40 mg Documented by: Gabapentin (Gabapentin 400 Mg Cap) 400 mg PO HS [facility] Stop: 11/10/21 23:52 Last Admin: 10/19/21 20:18 Dose: 400 mg Documented by: Glucagon (Glucagon For Inj 1 Mg Vial) 1 mg IM UD PRN; Protocol PRN Reason: Hypoglycemia Protocol Stop: 11/11/21 00:14 Glucose (Glucose 40% Gel 15 Gm Tube) 15 - 30 gm PO UD PRN; Protocol PRN Reason: Hypoglycemia Protocol Stop: 11/11/21 00:14 Glucose (Glucose 10 Tabs/Tube) 4 - 8 tabs PO UD PRN; Protocol PRN Reason: Hypoglycemia Protocol Stop: 11/11/21 00:14 Heparin Sodium (Porcine) (Heparin Sod 5,000 Unit/0.5 Ml Vial) 5,000 units SQ Q8 [facility] Stop: 11/10/21 23:52 Last Admin: 10/14/21 20:45 Dose: 5,000 units Documented by: Insulin Aspart (Insulin Aspart Per Unit) 0 units SC ACHS [facility] Stop: 11/11/21 07:29 Last Admin: 10/20/21 10:32 Dose: Not Given Documented by: Isosorbide Mononitrate (Isosorbide [place] Extended Rel 30 Mg Tabcr) [facility] Stop: 11/11/21 08:59 Last Admin: 10/20/21 10:39 Dose: 30 mg Documented by: Levothyroxine Sodium (Levothyroxine Sodium 125 Mcg Tablet) 125 mcg PO DAILY@0600 [facility] Stop: 11/11/21 05:59 Last Admin: 10/20/21 06:14 Dose: 125 mcg Documented by: Metoprolol Succinate (Metoprolol Succ 50mg Ext Rel Tab) 100 mg PO QAM [facility] Stop: 11/11/21 08:59 Last Admin: 10/20/21 10:39 Dose: 100 mg Documented by: Miscellaneous (Carbohydrates For Hypoglycemia ) 15 - 30 gm PO UD PRN PRN Reason: Hypoglycemia Treatment Stop: 11/11/21 00:14 Naproxen (Naproxen 375 Mg Tab) 375 mg PO ONE ONE Stop: 10/20/21 10:39 Nitroglycerin (Nitroglycerin Sl 0.4 Mg/Tab Tab) 0.4 mg SL UD PRN PRN Reason: Chest Pain Stop: 11/10/21 23:52 Pantoprazole Sodium (Pantoprazole 40 Mg Tab) 40 mg PO BID [facility] Stop: 11/15/21 20:59 Last Admin: 10/20/21 10:40 Dose: 40 mg Documented by: Polyethylene Glycol (Polyethylene (Miralax) 17 Gm Pack) 17 gm PO DAILY PRN PRN Reason: Constipation Stop: 11/10/21 23:52 Tramadol HCl (Tramadol Hcl 50 Mg Tablet) 50 mg PO TID PRN PRN Reason: Pain Stop: 11/10/21 23:52 Last Admin: 10/19/21 20:58 Dose: 50 mg Documented by: Triamcinolone Acetonide (Triamcinolone Acet 0.1% Cr 15 Gm Tube) 1 appln TOP BID [facility] Stop: 11/10/21 23:52 Last Admin: 10/20/21 10:41 Dose: 1 appln Documented by:
[2021-10-20] MEDS: CYANOCOBALAMIN (B-12) 500 MCG TABLET PO SCH (10:38)
[2021-10-20] MEDS: allopurinoL 100 MG TAB PO SCH (10:38)
[2021-10-20] MEDS: ISOSORBIDE MONO EXTENDED REL 30 MG TABCR PO SCH (10:39)
[2021-10-20] MEDS: FUROSEMIDE 40 MG TAB PO SCH (10:39)
[2021-10-20] MEDS: METOPROLOL SUCC 50MG EXT REL TAB PO SCH (10:39)
[2021-10-20] MEDS: PANTOprazole 40 MG TAB PO SCH ×2 (10:40→20:28)
[2021-10-20] MEDS: TRIAMCINOLONE ACET 0.1% CR 15 GM TUBE TOP SCH ×2 (10:41→20:29)
[2021-10-20] MEDS: NAPROXEN 375 MG TAB PO ONE ×2 (13:01→13:04)
[2021-10-20] MEDS: ACETAMINOPHEN 500 MG TAB PO SCH ×2 (13:01→20:27)
[2021-10-20] MEDS: traMADol HCL 50 MG TABLET PO PRN (15:26)
[2021-10-20] MEDS: GABAPENTIN 400 MG CAP PO SCH (20:28)
[2021-10-21] MEDS: ACETAMINOPHEN 500 MG TAB PO SCH ×3 (03:15→20:11)
[2021-10-21] MEDS: LEVOTHYROXINE SODIUM 125 MCG TABLET PO SCH (06:17)
[2021-10-21] MEDS: INSULIN ASPART PER UNIT SC SCH ×4 (09:36→20:06)
[2021-10-21] MEDS: METOPROLOL SUCC 50MG EXT REL TAB PO SCH (09:37)
[2021-10-21] MEDS: FUROSEMIDE 40 MG TAB PO SCH (09:37)
[2021-10-21] MEDS: CYANOCOBALAMIN (B-12) 500 MCG TABLET PO SCH (09:37)
[2021-10-21] MEDS: ISOSORBIDE MONO EXTENDED REL 30 MG TABCR PO SCH (09:37)
[2021-10-21] MEDS: allopurinoL 100 MG TAB PO SCH (09:37)
[2021-10-21] MEDS: PANTOprazole 40 MG TAB PO SCH ×2 (09:38→20:12)
[2021-10-21] MEDS: TRIAMCINOLONE ACET 0.1% CR 15 GM TUBE TOP SCH ×2 (09:38→20:13)
[2021-10-21] MEDS: traMADol HCL 50 MG TABLET PO PRN ×2 (09:44→15:33)
[2021-10-21] MEDS: GABAPENTIN 400 MG CAP PO SCH (20:12)
[2021-10-21] MEDS ORDERED: MELATONIN 3 MG TAB PO PRN (20:54)
--- NOTE | 2021-10-22 00:30 | Hospitalist Progress Note ---
Date of Service October 22, 2021 Assessment & Plan (1) Generalized weakness: Plan: Multiple chronic medical problems including ILD, DMII, ischemic cardiomyopathy, and CKD Stage 3 and spinal stenosis and BPH with reports Recent workup revealed possible autoimmune hepatitis with steroids declined at this time--there is a follow-up appointment at [facility] [place] for patient. LFTs and hyperbilirubinemia has improved. CT head showed no acute intracranial abnormality Continue PT/OT-recommended rehab Denies any significant pain as of today 10/13/2021 Awaiting placement-remains stable No new issues except ongoing left knee pain Remains a stable and awaiting placement Left knee pain: Possible due to L knee bursitis CT L knee showed No evidence of acute fracture or dislocation. Superficial edema is seen in the anterior aspect of the knee which is nonspecific, Ortho on board No surgical intervention PT/OT eval -clinically needs better No swelling and/or significant pain Complains to have worse pain with pressure on the knee joint with associated abdominal discomfort and nausea Ortho eval again today and he is continuing to improve. Conservative scheduled Tylenol, ice --continue this, pain seems to have improved. Abdominal pain-resolved. Liver u/s showed Exam compromised by suboptimal penetration. No biliary ductal dilatation identified. Sludge and small stones within the gallbladder. No evidence for acute cholecystitis. 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: Appears compensated, continue home dose of furosemide Continue ASA, beta-corky, nitrate CKD (chronic kidney disease) stage 4, GFR 15-29 ml/min: Baseline creatinine mid 2s- low 3s Creatinine 1.4 today Follow renal functions Creatinine slightly elevated at 1.65-1.7 on 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 We will get PT and OT evaluation before discharge-recommended rehab [facility] (2) Prepatellar bursitis: (3) Acute urinary retention: (4) History of COVID-19: (5) Autoimmune hepatitis: (6) Ambulatory dysfunction: (7) DM type 2 (diabetes mellitus, type 2): (8) Benign localized prostatic hyperplasia with lower urinary tract symptoms (LUTS): (9) HTN (hypertension): (10) Hx of CABG: (11) PAF (paroxysmal atrial fibrillation): (12) CKD (chronic kidney disease), stage III: (13) DVT prophylaxis: Admission and Anticipated Discharge Date Admission Date: October 11, 2021 Subjective 86 yo M with h/o autoimmune hepatitis and multiple chronic medical problems, admitted multiple times in the past couple of months, presented with weakness and confusion. Left knee is better ROM still limited No swelling present still concerned about the pain when he moves Patient appears to have poor insight into his disease process Review of Systems Review of Systems: All systems were reviewed and negative except as indicated on HPI above. Physical Exam Physical Exam: CONSTITUTIONAL: WNWD, vitals as above, generally well- appearing, NAD EYES: normal conjunctivae, no scleral icterus ENT: external ear and nose normal,MMM NECK: trachea midline, RESPIRATORY: clear to auscultation bilaterally, no crackles, rales or wheezes, normal respiratory effort CARDIOVASCULAR: regular rate and rhythm, S1 and 2 heard without murmurs, gallops or rubs, no JVD, no peripheral edema, GASTROINTESTINAL: soft, nontender, ND, no guarding MUSCULOSKELETAL: strength 5/5 throughout but there is minimal flexion of left knee, bruising inferior to patella that is minimal. head is normocephalic and atraumatic, SKIN: warm and dry, sequelae of fall from approx 1 week ago on left knee- healing well. NEUROLOGIC: No facial palsy, no dysarthria. CN 2-12 grossly intact, no sensory deficit, normal cognition, normal speech, no tremor PSYCHIATRIC: alert cooperative and oriented to person, place and time. Euthymic mood, makes good eye contact, language grossly intact, recent and remote memory grossly intact. Results & Data Results & Data ([facility]) Vital Signs (Past 12 Hours) Vital Signs Temp Pulse Resp BP BP Pulse Ox Pulse Ox 10/21/21 23:22 36.5 C 59 L 18 146/72 H 95 10/21/21 23:00 95 10/21/21 19:28 36.4 C L 64 18 134/69 94 10/21/21 15:05 36.7 C 59 L 20 105/58 L 98 Medications Administered Current Inpatient Medications Acetaminophen (Acetaminophen 500 Mg Tab) 1,000 mg PO Q8H [facility] Stop: 11/19/21 10:59 Last Admin: 10/21/21 20:11 Dose: 1,000 mg Documented by: Allopurinol (Allopurinol 100 Mg Tab) 200 mg PO DAILY [facility] Stop: 11/11/21 08:59 Last Admin: 10/21/21 09:37 Dose: 200 mg Documented by: Aspirin (Aspirin 81 Mg Ectab) 81 mg PO Q2D@0900 [facility] Stop: 11/11/21 08:59 Last Admin: 10/14/21 08:37 Dose: 81 mg Documented by: Cyanocobalamin (Cyanocobalamin (B-12) 500 Mcg Tablet) 1,000 mcg PO QAM [facility] Stop: 11/11/21 08:59 Last Admin: 10/21/21 09:37 Dose: 1,000 mcg Documented by: Dextrose (Dextrose 50% 50 Ml Syringe) 25 - 50 ml IV UD PRN; Protocol PRN Reason: Hypoglycemia Protocol Stop: 11/11/21 00:14 Diclofenac Sodium (Diclofenac Sod 1% Gel 100 Gm Tube) 2 gm EXT Q8H [facility]; Protocol Stop: 11/11/21 14:44 Last Admin: 10/20/21 06:14 Dose: 2 gm Documented by: Furosemide (Furosemide 40 Mg Tab) 40 mg PO DAILY [facility] Stop: 11/11/21 08:59 Last Admin: 10/21/21 09:37 Dose: 40 mg Documented by: Gabapentin (Gabapentin 400 Mg Cap) 400 mg PO HS [facility] Stop: 11/10/21 23:52 Last Admin: 10/21/21 20:12 Dose: 400 mg Documented by: Glucagon (Glucagon For Inj 1 Mg Vial) 1 mg IM UD PRN; Protocol PRN Reason: Hypoglycemia Protocol Stop: 11/11/21 00:14 Glucose (Glucose 40% Gel 15 Gm Tube) 15 - 30 gm PO UD PRN; Protocol PRN Reason: Hypoglycemia Protocol Stop: 11/11/21 00:14 Glucose (Glucose 10 Tabs/Tube) 4 - 8 tabs PO UD PRN; Protocol PRN Reason: Hypoglycemia Protocol Stop: 11/11/21 00:14 Heparin Sodium (Porcine) (Heparin Sod 5,000 Unit/0.5 Ml Vial) 5,000 units SQ Q8 [facility] Stop: 11/10/21 23:52 Last Admin: 10/14/21 20:45 Dose: 5,000 units Documented by: Insulin Aspart (Insulin Aspart Per Unit) 0 units SC ACHS [facility] Stop: 11/11/21 07:29 Last Admin: 10/21/21 20:06 Dose: Not Given Documented by: Isosorbide Mononitrate (Isosorbide [place] Extended Rel 30 Mg Tabcr) 30 mg PO QAM [facility] Stop: 11/11/21 08:59 Last Admin: 10/21/21 09:37 Dose: 30 mg Documented by: Levothyroxine Sodium (Levothyroxine Sodium 125 Mcg Tablet) 125 mcg PO DAILY@0600 [facility] Stop: 11/11/21 05:59 Last Admin: 10/21/21 06:17 Dose: 125 mcg Documented by: Metoprolol Succinate (Metoprolol Succ 50mg Ext Rel Tab) [facility] [place] [facility] Stop: 11/11/21 08:59 Last Admin: 10/21/21 09:37 Dose: 100 mg Documented by: Miscellaneous (Carbohydrates For Hypoglycemia ) 15 - 30 gm PO UD PRN PRN Reason: Hypoglycemia Treatment Stop: 11/11/21 00:14 Nitroglycerin (Nitroglycerin Sl 0.4 Mg/Tab Tab) 0.4 mg SL UD PRN PRN Reason: Chest Pain Stop: 11/10/21 23:52 Pantoprazole Sodium (Pantoprazole 40 Mg Tab) 40 mg PO BID [facility] Stop: 11/15/21 20:59 Last Admin: 10/21/21 20:12 Dose: 40 mg Documented by: Polyethylene Glycol (Polyethylene (Miralax) 17 Gm Pack) 17 gm PO DAILY PRN PRN Reason: Constipation Stop: 11/10/21 23:52 Tramadol HCl (Tramadol Hcl 50 Mg Tablet) 50 mg PO TID PRN PRN Reason: Pain Stop: 11/10/21 23:52 Last Admin: 10/21/21 15:33 Dose: 50 mg Documented by: Triamcinolone Acetonide (Triamcinolone Acet 0.1% Cr 15 Gm Tube) 1 appln TOP BID [facility] Stop: 11/10/21 23:52 Last Admin: 10/21/21 20:13 Dose: 1 appln Documented by:
[2021-10-22] MEDS: ACETAMINOPHEN 500 MG TAB PO SCH ×3 (02:33→20:18)
[2021-10-22] MEDS: traMADol HCL 50 MG TABLET PO PRN (04:52)
[2021-10-22] MEDS: LEVOTHYROXINE SODIUM 125 MCG TABLET PO SCH (04:52)
[2021-10-22] MEDS: PANTOprazole 40 MG TAB PO SCH ×2 (07:31→20:19)
[2021-10-22] MEDS: FUROSEMIDE 40 MG TAB PO SCH (07:31)
[2021-10-22] MEDS: allopurinoL 100 MG TAB PO SCH (07:32)
[2021-10-22] MEDS: ISOSORBIDE MONO EXTENDED REL 30 MG TABCR PO SCH (07:32)
[2021-10-22] MEDS: METOPROLOL SUCC 50MG EXT REL TAB PO SCH (07:32)
[2021-10-22] MEDS: CYANOCOBALAMIN (B-12) 500 MCG TABLET PO SCH (07:32)
[2021-10-22] MEDS: TRIAMCINOLONE ACET 0.1% CR 15 GM TUBE TOP SCH ×2 (07:32→20:19)
[2021-10-22] MEDS: INSULIN ASPART PER UNIT SC SCH ×4 (08:50→20:34)
--- NOTE | 2021-10-22 17:01 | Hospitalist Progress Note ---
Date of Service October 22, 2021 Assessment & Plan (1) Generalized weakness: Plan: Multiple chronic medical problems including ILD, DMII, ischemic cardiomyopathy, and CKD Stage 3 and spinal stenosis and BPH with reports Recent workup revealed possible autoimmune hepatitis with steroids declined at this time--there is a follow-up appointment at [facility] for [place]. LFTs and hyperbilirubinemia has improved. CT head showed no acute intracranial abnormality Continue PT/OT-recommended rehab Denies any significant pain as of today 10/13/2021 Awaiting placement-remains stable No new issues except ongoing left knee pain Remains stable and awaiting placement Left knee pain: Possible due to L knee bursitis CT L knee showed No evidence of acute fracture or dislocation. Superficial edema is seen in the anterior aspect of the knee which is nonspecific, Ortho on board No surgical intervention PT/OT eval -clinically needs better No swelling and/or significant pain Complains to have worse pain with pressure on the knee joint with associated abdominal discomfort and nausea Ortho eval again today and he is continuing to improve. Conservative scheduled Tylenol, ice --continue this, pain seems to have improved. cont PT/OT efforts and ambulating him out of bed as often as possible. Abdominal pain-resolved. Liver u/s showed Exam compromised by suboptimal penetration. No biliary ductal dilatation identified. Sludge and small stones within the gallbladder. No evidence for acute cholecystitis. 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: Appears compensated, continue home dose of furosemide Continue ASA, beta-corky, nitrate CKD (chronic kidney disease) stage 4, GFR 15-29 ml/min: Baseline creatinine mid 2s- low 3s Creatinine 1.4 today Follow renal functions Creatinine slightly elevated at 1.65-1.7 on 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 We will get PT and OT evaluation before discharge-recommended rehab Eleni Zhu DO [facility] Hospitalist (2) Prepatellar bursitis: (3) Acute urinary retention: (4) History of COVID-19: (5) Autoimmune hepatitis: (6) Ambulatory dysfunction: (7) DM type 2 (diabetes mellitus, type 2): (8) Benign localized prostatic hyperplasia with lower urinary tract symptoms (LUTS): (9) HTN (hypertension): (10) Hx of CABG: (11) PAF (paroxysmal atrial fibrillation): (12) CKD (chronic kidney disease), stage III: (13) DVT prophylaxis: Admission and Anticipated Discharge Date Admission Date: October 11, 2021 Subjective 86 yo M with h/o autoimmune hepatitis and multiple chronic medical problems, admitted multiple times in the past couple of months, presented with weakness and confusion. Left knee is better-slight pain reported again while standing ROM improved Patient has very poor insight into who I am or what is going on with him He doesn't remember any ice in the last 24 hours. He has no other complaints. Spoke with by phone and discussed the case with her in depth. She has many concerns, the biggest right now being his knee pain. We went through his CT scan and the ortho evaluations. All questions were answered to her satisfaction Review of Systems Review of Systems: All systems were reviewed and negative except as indicated on HPI above. Physical Exam Physical Exam: CONSTITUTIONAL: WNWD, vitals as above, generally well- appearing, NAD EYES: normal conjunctivae, no scleral icterus ENT: external ear and nose normal,MMM NECK: trachea midline, RESPIRATORY: clear to auscultation bilaterally, no crackles, rales or wheezes, normal respiratory effort CARDIOVASCULAR: regular rate and rhythm, S1 and 2 heard without murmurs, gallops or rubs, no JVD, no peripheral edema, GASTROINTESTINAL: soft, nontender, ND, no guarding MUSCULOSKELETAL: strength 5/5 throughout but there is improved flexion of left knee, bruising inferior to patella that is minimal. head is normocephalic and atraumatic, SKIN: warm and dry, sequelae of fall from approx 1 week ago on left knee- healing well. NEUROLOGIC: No facial palsy, no dysarthria. CN 2-12 grossly intact, no sensory deficit, normal cognition, normal speech, no tremor PSYCHIATRIC: alert cooperative and oriented to person, place and time. Euthymic mood, makes good eye contact, language grossly intact, recent and remote memory grossly intact. Results & Data Results & Data ([facility]) Vital Signs (Past 12 Hours) Vital Signs Temp Pulse Resp BP Pulse Ox 10/22/21 15:47 36.6 C 59 L 18 124/69 95 10/22/21 10:50 36.6 C 60 18 111/60 96 10/22/21 07:48 36.6 C 60 18 125/67 95
[2021-10-22] MEDS: GABAPENTIN 400 MG CAP PO SCH (20:18)
[2021-10-23] MEDS: ACETAMINOPHEN 500 MG TAB PO SCH ×3 (02:48→17:54)
[2021-10-23] MEDS: LEVOTHYROXINE SODIUM 125 MCG TABLET PO SCH (05:30)
[2021-10-23] MEDS: INSULIN ASPART PER UNIT SC SCH ×4 (08:23→21:08)
[2021-10-23] MEDS: allopurinoL 100 MG TAB PO SCH (08:24)
[2021-10-23] MEDS: ISOSORBIDE MONO EXTENDED REL 30 MG TABCR PO SCH (08:24)
[2021-10-23] MEDS: FUROSEMIDE 40 MG TAB PO SCH (08:24)
[2021-10-23] MEDS: CYANOCOBALAMIN (B-12) 500 MCG TABLET PO SCH (08:24)
[2021-10-23] MEDS: METOPROLOL SUCC 50MG EXT REL TAB PO SCH (08:24)
[2021-10-23] MEDS: PANTOprazole 40 MG TAB PO SCH ×2 (08:24→21:11)
[2021-10-23] MEDS: TRIAMCINOLONE ACET 0.1% CR 15 GM TUBE TOP SCH ×2 (08:25→21:09)
[2021-10-23 09:47] LABS: Hematocrit (blood only) 36.4 % (42-52); Mean Corpuscular Hemoglobin 33.3 pg (25-34); Mean Corpuscular Volume 101.1 fL (80-100); Mean Platelet Volume 10.2 fL (7.4-10.4); Platelet Count 349 K/uL (130-400); RDW Coefficient of Variation 16.1 % (11.5-14.5); RDW Standard Deviation 58.9 fL (36.4-46.3); White Blood Count 9.24 K/uL (4.8-10.8)
[2021-10-23 10:40] LABS: Albumin Level 3.2 gm/dl (3.4-5.0); BUN Creatinine Ratio 25.9 (10-20); Bilirubin Direct 0.5 mg/dl (0-0.2); Bilirubin,Total 1.3 mg/dl (0.2-1.0); Calcium 10.1 mg/dl (8.5-10.1); Creatinine Clr Calc Pharmacy 35.9 ml/min; Est GFR (African American) 45.9 ml/min; Est GFR (Non-African American) 39.6 ml/min; Potassium 4.3 mmol/L (3.5-5.1); Total Protein 6.5 gm/dl (6.0-8.3)
--- NOTE | 2021-10-23 13:36 | Hospitalist Progress Note ---
Date of Service October 23, 2021 Assessment & Plan (1) Generalized weakness: Plan: Multiple chronic medical problems including ILD, DMII, ischemic cardiomyopathy, and CKD Stage 3 and spinal stenosis and BPH with reports Recent workup revealed possible autoimmune hepatitis with steroids declined at this time--there is a follow-up appointment at [facility] for patient. LFTs and hyperbilirubinemia has improved. CT head showed no acute intracranial abnormality Continue PT/OT-recommended rehab Denies any significant pain as of today 10/13/2021 Awaiting placement-remains stable No new issues except ongoing left knee pain Remains stable and awaiting placement Left knee pain: Possible due to L knee bursitis CT L knee showed No evidence of acute fracture or dislocation. Superficial edema is seen in the anterior aspect of the knee which is nonspecific, Ortho on board No surgical intervention PT/OT eval -clinically needs better No swelling and/or significant pain Complains to have worse pain with pressure on the knee joint with associated abdominal discomfort and nausea Ortho eval again today and he is continuing to improve. Conservative scheduled Tylenol, ice --continue this, pain seems to have improved. cont PT/OT efforts and ambulating him out of bed as often as possible. Abdominal pain-resolved. Liver u/s showed Exam compromised by suboptimal penetration. No biliary ductal dilatation identified. Sludge and small stones within the gallbladder. No evidence for acute cholecystitis. 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: Appears compensated, continue home dose of furosemide Continue ASA, beta-corky, nitrate CKD (chronic kidney disease) stage 4, GFR 15-29 ml/min: chronic, stable. 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 We will get PT and OT evaluation before discharge-recommended rehab Eleni Zhu DO [facility] Hospitalist (2) Prepatellar bursitis: (3) Acute urinary retention: (4) History of COVID-19: (5) Autoimmune hepatitis: (6) Ambulatory dysfunction: (7) DM type 2 (diabetes mellitus, type 2): (8) Benign localized prostatic hyperplasia with lower urinary tract symptoms (LUTS): (9) HTN (hypertension): (10) Hx of CABG: (11) PAF (paroxysmal atrial fibrillation): (12) CKD (chronic kidney disease), stage III: (13) DVT prophylaxis: Admission and Anticipated Discharge Date Admission Date: October 11, 2021 Subjective 86 yo M with h/o autoimmune hepatitis and multiple chronic medical problems, admitted multiple times in the past couple of months, presented with weakness and confusion. reports L knee still hurts with standing but cannot tell me the last time he actually tried to stand on it. He appears almost groggy but then says he is not fatigued Poor insight--doesn't seem to understand simple questions and has to think on them for a while prior to answering. Gives a confused response to questions. Review of Systems Review of Systems: All systems were reviewed and negative except as indicated on HPI above. Physical Exam Physical Exam: CONSTITUTIONAL: WNWD, vitals as above, generally well- appearing, NAD EYES: normal conjunctivae, no scleral icterus ENT: external ear and nose normal,MMM NECK: trachea midline, RESPIRATORY: clear to auscultation bilaterally, no crackles, rales or wheezes, normal respiratory effort CARDIOVASCULAR: regular rate and rhythm, S1 and 2 heard without murmurs, gallops or rubs, no JVD, no peripheral edema, GASTROINTESTINAL: soft, nontender, ND, no guarding MUSCULOSKELETAL: strength 5/5 throughout but there is improved flexion of left knee, bruising inferior to patella that is minimal. head is normocephalic and atraumatic, SKIN: warm and dry, sequelae of fall from approx 1 week ago on left knee- healing well. NEUROLOGIC: No facial palsy, no dysarthria. CN 2-12 grossly intact, no sensory deficit, normal cognition, normal speech, no tremor PSYCHIATRIC: alert cooperative and oriented to person, place and time. Euthymic mood, makes good eye contact, language grossly intact, recent and remote memory grossly intact. Results & Data Results & Data ([facility]) Vital Signs (Past 12 Hours) Vital Signs Temp Pulse Resp BP Pulse Ox 10/23/21 06:23 36.3 C L 60 18 164/72 H 95 Laboratory Results Short CBC 10/23/21 Range/Units 09:09 WBC 9.24 (4.8-10.8) K/uL Hgb 12.0 L (14.0-18.0) g/dL Hct 36.4 L (42-52) % Plt Count 349 (130-400) K/uL BMP 10/23/21 09:09 Sodium 136 Potassium 4.3 Chloride 100 Carbon Dioxide 29 BUN 41 H Creatinine 1.58 H Glucose 153 H Calcium 10.1 Liver Function 10/23/21 Range/Units 09:09 Total Bilirubin 1.3 H (0.2-1.0) mg/dl Direct Bilirubin 0.5 H (0-0.2) mg/dl AST 24 (13-39) U/L ALT 21 (7-52) U/L Alkaline Phosphatase 394 H (34-104) U/L Albumin 3.2 L (3.4-5.0) gm/dl Medications Administered Current Inpatient Medications Acetaminophen (Acetaminophen 500 Mg Tab) 1,000 mg PO Q8H [facility] Stop: 11/19/21 10:59 Last Admin: 10/23/21 12:49 Dose: 1,000 mg Documented by: Allopurinol (Allopurinol 100 Mg Tab) 200 mg PO DAILY [facility] Stop: 11/11/21 08:59 Last Admin: 10/23/21 08:24 Dose: 200 mg Documented by: Aspirin (Aspirin 81 Mg Ectab) 81 mg PO Q2D@0900 [facility] Stop: 11/11/21 08:59 Last Admin: 10/14/21 08:37 Dose: 81 mg Documented by: Cyanocobalamin (Cyanocobalamin (B-12) 500 Mcg Tablet) 1,000 mcg PO QAM [facility] Stop: 11/11/21 08:59 Last Admin: 10/23/21 08:24 Dose: 1,000 mcg Documented by: Dextrose (Dextrose 50% 50 Ml Syringe) 25 - 50 ml IV UD PRN; Protocol PRN Reason: Hypoglycemia Protocol Stop: 11/11/21 00:14 Diclofenac Sodium (Diclofenac Sod 1% Gel 100 Gm Tube) 2 gm EXT Q8H [facility]; Protocol Stop: 11/11/21 14:44 Last Admin: 10/20/21 06:14 Dose: 2 gm Documented by: Furosemide (Furosemide 40 Mg Tab) 40 mg PO DAILY [facility] Stop: 11/11/21 08:59 Last Admin: 10/23/21 08:24 Dose: 40 mg Documented by: Gabapentin (Gabapentin 400 Mg Cap) 400 mg PO HS [facility] Stop: 11/10/21 23:52 Last Admin: 10/22/21 20:18 Dose: 400 mg Documented by: Glucagon (Glucagon For Inj 1 Mg Vial) 1 mg IM UD PRN; Protocol PRN Reason: Hypoglycemia Protocol Stop: 11/11/21 00:14 Glucose (Glucose 40% Gel 15 Gm Tube) 15 - 30 gm PO UD PRN; Protocol PRN Reason: Hypoglycemia Protocol Stop: 11/11/21 00:14 Glucose (Glucose 10 Tabs/Tube) 4 - 8 tabs PO UD PRN; Protocol PRN Reason: Hypoglycemia Protocol Stop: 11/11/21 00:14 Heparin Sodium (Porcine) (Heparin Sod 5,000 Unit/0.5 Ml Vial) 5,000 units SQ Q8 [facility] Stop: 11/10/21 23:52 Last Admin: 10/14/21 20:45 Dose: 5,000 units Documented by: Insulin Aspart (Insulin Aspart Per Unit) 0 units SC ACHS [facility] Stop: 11/11/21 07:29 Last Admin: 10/23/21 12:43 Dose: Not Given Documented by: Isosorbide Mononitrate (Isosorbide [place] Extended Rel 30 Mg Tabcr) 30 mg PO [facility] Stop: 11/11/21 08:59 Last Admin: 10/23/21 08:24 Dose: 30 mg Documented by: Levothyroxine Sodium (Levothyroxine Sodium 125 Mcg Tablet) 125 mcg PO DAILY@0600 [facility] Stop: 11/11/21 05:59 Last Admin: 10/23/21 05:30 Dose: 125 mcg Documented by: Metoprolol Succinate (Metoprolol Succ 50mg Ext Rel Tab) 100 mg PO [facility] Stop: 11/11/21 08:59 Last Admin: 10/23/21 08:24 Dose: 100 mg Documented by: Miscellaneous (Carbohydrates For Hypoglycemia ) 15 - 30 gm PO UD PRN PRN Reason: Hypoglycemia Treatment Stop: 11/11/21 00:14 Nitroglycerin (Nitroglycerin Sl 0.4 Mg/Tab Tab) 0.4 mg SL UD PRN PRN Reason: Chest Pain Stop: 11/10/21 23:52 Pantoprazole Sodium (Pantoprazole 40 Mg Tab) 40 mg PO BID [facility] Stop: 11/15/21 20:59 Last Admin: 10/23/21 08:24 Dose: 40 mg Documented by: Polyethylene Glycol (Polyethylene (Miralax) 17 Gm Pack) 17 gm PO DAILY PRN PRN Reason: Constipation Stop: 11/10/21 23:52 Tramadol HCl (Tramadol Hcl 50 Mg Tablet) 50 mg PO TID PRN PRN Reason: Pain Stop: 11/10/21 23:52 Last Admin: 10/22/21 04:52 Dose: 50 mg Documented by: Triamcinolone Acetonide (Triamcinolone Acet 0.1% Cr 15 Gm Tube) 1 appln TOP BID [facility] Stop: 11/10/21 23:52 Last Admin: 10/23/21 08:25 Dose: Not Given Documented by:
[2021-10-23] MEDS: GABAPENTIN 400 MG CAP PO SCH (21:11)
[2021-10-24] MEDS: traMADol HCL 50 MG TABLET PO PRN (00:50)
[2021-10-24] MEDS: ACETAMINOPHEN 500 MG TAB PO SCH ×3 (03:02→18:14)
[2021-10-24] MEDS: LEVOTHYROXINE SODIUM 125 MCG TABLET PO SCH (06:22)
[2021-10-24] MEDS: INSULIN ASPART PER UNIT SC SCH ×4 (08:02→21:01)
[2021-10-24] MEDS: FUROSEMIDE 40 MG TAB PO SCH (08:03)
[2021-10-24] MEDS: allopurinoL 100 MG TAB PO SCH (08:03)
[2021-10-24] MEDS: CYANOCOBALAMIN (B-12) 500 MCG TABLET PO SCH (08:03)
[2021-10-24] MEDS: PANTOprazole 40 MG TAB PO SCH ×2 (08:03→20:35)
[2021-10-24] MEDS: ISOSORBIDE MONO EXTENDED REL 30 MG TABCR PO SCH (08:03)
[2021-10-24] MEDS: METOPROLOL SUCC 50MG EXT REL TAB PO SCH (08:03)
[2021-10-24] MEDS: TRIAMCINOLONE ACET 0.1% CR 15 GM TUBE TOP SCH ×2 (08:05→20:36)
[2021-10-24] MEDS ORDERED: NAPROXEN 250 MG TAB PO STA (09:31)
--- NOTE | 2021-10-24 14:17 | Hospitalist Progress Note ---
Date of Service October 24, 2021 Assessment & Plan (1) Generalized weakness: Plan: Multiple chronic medical problems including ILD, DMII, ischemic cardiomyopathy, and CKD Stage 3 and spinal stenosis and BPH with reports Recent workup revealed possible autoimmune hepatitis with steroids declined at this time--there is a follow-up appointment at [facility] for patient. LFTs and hyperbilirubinemia has improved. CT head showed no acute intracranial abnormality Continue PT/OT-recommended rehab Denies any significant pain as of today 10/13/2021 Awaiting placement-remains stable No new issues except ongoing left knee pain Remains stable and awaiting placement Left knee pain 2/[address] L knee showed No evidence of acute fracture or dislocation. Superficial edema is seen in the anterior aspect of the knee which is nonspecific, Ortho on board No surgical intervention PT/OT eval -clinically needs better No swelling and/or significant pain Complains to have worse pain with pressure on the knee joint with associated abdominal discomfort and nausea Ortho eval again today and he is continuing to improve. Conservative scheduled Tylenol, ice --continue this, pain seems to have improved. cont PT/OT efforts and ambulating him out of bed as often as possible. Abdominal pain-resolved. Liver u/s showed Exam compromised by suboptimal penetration. No biliary ductal dilatation identified. Sludge and small stones within the gallbladder. No evidence for acute cholecystitis. Gastro on board -appreciate input and recommendation GI signed off and will not use any steroid for now Denies any abdominal pain and/or nausea or vomiting Has been moving bowels regularly Chronic Elevated troponin: Resting echo-unchanged from prior study and perhaps slight improvement with overall systolic function Patient's advanced age and multiple comorbid conditions likely contributing to his generalized weakness No evidence of ACS Asymptomatic CAD (coronary artery disease): Continue asa, betablocker Stable Ischemic cardiomyopathy: 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: Appears compensated, continue home dose of furosemide Continue ASA, beta-corky, nitrate CKD (chronic kidney disease) stage 4, GFR 15-29 ml/min: chronic, stable. 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 Restart statin in am. DM type 2 (diabetes mellitus, type 2): Most recent Hgb A1c 6.4 on 10/12/21 NovoLog per protocol while hospitalized continue monitor BP Deep venous thrombosis prophylaxis: Sequential compression devices, heparin subcutaneous. Awaiting SNF placement to [facility] after the holiday weekend. Eleni Zhu DO [facility] Hospitalist (2) Prepatellar bursitis: (3) Acute urinary retention: (4) History of COVID-19: (5) Autoimmune hepatitis: (6) Ambulatory dysfunction: (7) DM type 2 (diabetes mellitus, type 2): (8) Benign localized prostatic hyperplasia with lower urinary tract symptoms (LUTS): (9) HTN (hypertension): (10) Hx of CABG: (11) PAF (paroxysmal atrial fibrillation): (12) CKD (chronic kidney disease), stage III: (13) DVT prophylaxis: Admission and Anticipated Discharge Date Admission Date: October 11, 2021 Subjective 86 yo M with h/o autoimmune hepatitis and multiple chronic medical problems, admitted multiple times in the past couple of months, presented with weakness and confusion. reports L knee still hurts he is finally OOB in the nedside chair and legs are elevated reports his left knee is throbbing feels ice would help which was requested Otherwise denies other issues. Review of Systems Review of Systems: All systems were reviewed and negative except as indicated on HPI above. Physical Exam Physical Exam: CONSTITUTIONAL: WNWD, vitals as above, generally well- appearing, NAD EYES: normal conjunctivae, no scleral icterus ENT: external ear and nose normal, MMM NECK: trachea midline, RESPIRATORY: clear to auscultation bilaterally, no crackles, rales or wheezes, normal respiratory effort CARDIOVASCULAR: regular rate and rhythm, S1 and 2 heard without murmurs, gallops or rubs, no JVD, no peripheral edema, GASTROINTESTINAL: soft, nontender, ND, no guarding MUSCULOSKELETAL: bruising inferior to patella that is minimal. head is normocephalic and atraumatic. Was unable to assess strength and ROM of left knee today 2/2 pain. SKIN: warm and dry, sequelae of fall from approx 1 week ago on left knee- healing well. NEUROLOGIC: No facial palsy, no dysarthria. CN 2-12 grossly intact, no sensory deficit, normal cognition, normal speech, no tremor PSYCHIATRIC: alert cooperative and oriented to person, place and time. Euthymic mood, makes good eye contact, language grossly intact, recent and remote memory grossly intact. Results & Data Results & Data ([facility]) Vital Signs (Past 12 Hours) Vital Signs Temp Pulse Resp BP Pulse Ox 10/24/21 06:27 36.6 C 60 18 130/73 96 Medications Administered Current Inpatient Medications Acetaminophen (Acetaminophen 500 Mg Tab) 1,000 mg PO Q8H [facility] Stop: 11/19/21 10:59 Last Admin: 10/24/21 12:04 Dose: 1,000 mg Documented by: Allopurinol (Allopurinol 100 Mg Tab) 200 mg PO DAILY [facility] Stop: 11/11/21 08:59 Last Admin: 10/24/21 08:03 Dose: 200 mg Documented by: Aspirin (Aspirin 81 Mg Ectab) 81 mg PO Q2D@0900 [facility] Stop: 11/11/21 08:59 Last Admin: 10/14/21 08:37 Dose: 81 mg Documented by: Cyanocobalamin (Cyanocobalamin (B-12) 500 Mcg Tablet) 1,000 mcg PO QAM [facility] Stop: 11/11/21 08:59 Last Admin: 10/24/21 08:03 Dose: 1,000 mcg Documented by: Dextrose (Dextrose 50% 50 Ml Syringe) 25 - 50 ml IV UD PRN; Protocol PRN Reason: Hypoglycemia Protocol Stop: 11/11/21 00:14 Diclofenac Sodium (Diclofenac Sod 1% Gel 100 Gm Tube) 2 gm EXT Q8H [facility]; Protocol Stop: 11/11/21 14:44 Last Admin: 10/20/21 06:14 Dose: 2 gm Documented by: Furosemide (Furosemide 40 Mg Tab) 40 mg PO DAILY [facility] Stop: 11/11/21 08:59 Last Admin: 10/24/21 08:03 Dose: 40 mg Documented by: Gabapentin (Gabapentin 400 Mg Cap) 400 mg PO HS [facility] Stop: 11/10/21 23:52 Last Admin: 10/23/21 21:11 Dose: 400 mg Documented by: Glucagon (Glucagon For Inj 1 Mg Vial) 1 mg IM UD PRN; Protocol PRN Reason: Hypoglycemia Protocol Stop: 11/11/21 00:14 Glucose (Glucose 40% Gel 15 Gm Tube) 15 - 30 gm PO UD PRN; Protocol PRN Reason: Hypoglycemia Protocol Stop: 11/11/21 00:14 Glucose (Glucose 10 Tabs/Tube) 4 - 8 tabs PO UD PRN; Protocol PRN Reason: Hypoglycemia Protocol Stop: 11/11/21 00:14 Heparin Sodium (Porcine) (Heparin Sod 5,000 Unit/0.5 Ml Vial) 5,000 units SQ Q8 [facility] Stop: 11/10/21 23:52 Last Admin: 10/14/21 20:45 Dose: 5,000 units Documented by: Insulin Aspart (Insulin Aspart Per Unit) 0 units SC ACHS [facility] Stop: 11/11/21 07:29 Last Admin: 10/24/21 12:04 Dose: 2 units Documented by: Isosorbide Mononitrate (Isosorbide [place] Extended Rel 30 Mg Tabcr) 30 mg PO QAM [facility] Stop: 11/11/21 08:59 Last Admin: 10/24/21 08:03 Dose: 30 mg Documented by: Levothyroxine Sodium (Levothyroxine Sodium 125 Mcg Tablet) 125 mcg PO DAILY@0600 [facility] Stop: 11/11/21 05:59 Last Admin: 10/24/21 06:22 Dose: 125 mcg Documented by: Metoprolol Succinate (Metoprolol Succ 50mg Ext Rel Tab) 100 mg PO QAM [facility] Stop: 11/11/21 08:59 Last Admin: 10/24/21 08:03 Dose: 100 mg Documented by: Miscellaneous (Carbohydrates For Hypoglycemia ) 15 - 30 gm PO UD PRN PRN Reason: Hypoglycemia Treatment Stop: 11/11/21 00:14 Nitroglycerin (Nitroglycerin Sl 0.4 Mg/Tab Tab) 0.4 mg SL UD PRN PRN Reason: Chest Pain Stop: 11/10/21 23:52 Pantoprazole Sodium (Pantoprazole 40 Mg Tab) 40 mg PO BID [facility] Stop: 11/15/21 20:59 Last Admin: 10/24/21 08:03 Dose: 40 mg Documented by: Polyethylene Glycol (Polyethylene (Miralax) 17 Gm Pack) 17 gm PO DAILY PRN PRN Reason: Constipation Stop: 11/10/21 23:52 Tramadol HCl (Tramadol Hcl 50 Mg Tablet) 50 mg PO TID PRN PRN Reason: Pain Stop: 11/10/21 23:52 Last Admin: 10/24/21 00:50 Dose: 50 mg Documented by: Triamcinolone Acetonide (Triamcinolone Acet 0.1% Cr 15 Gm Tube) 1 appln TOP BID [facility] Stop: 11/10/21 23:52 Last Admin: 10/24/21 08:05 Dose: Not Given Documented by:
[2021-10-24] MEDS: ATORVASTATIN 40 MG TAB PO SCH (20:35)
[2021-10-24] MEDS: GABAPENTIN 400 MG CAP PO SCH (20:35)
[2021-10-25] MEDS: ACETAMINOPHEN 500 MG TAB PO SCH ×3 (03:52→18:00)
[2021-10-25] MEDS: LEVOTHYROXINE SODIUM 125 MCG TABLET PO SCH (05:30)
[2021-10-25 06:09] LABS: Hematocrit (blood only) 34.2 % (42-52); Hemoglobin 11.4 g/dL (14.0-18.0); Mean Corpuscular Hemoglobin 33.6 pg (25-34); Mean Corpuscular Hgb Conc 33.3 g/dL (32-36); Mean Corpuscular Volume 100.9 fL (80-100); Mean Platelet Volume 9.9 fL (7.4-10.4); Platelet Count 323 K/uL (130-400); RDW Coefficient of Variation 15.7 % (11.5-14.5); Red Blood Count 3.39 M/uL (4.7-6.1); White Blood Count 9.72 K/uL (4.8-10.8)
[2021-10-25 06:17] LABS: BUN Creatinine Ratio 34.2 (10-20); Calcium 9.8 mg/dl (8.5-10.1); Creatinine Clr Calc Pharmacy 35.3 ml/min; Est GFR (African American) 44.8 ml/min; Est GFR (Non-African American) 38.7 ml/min; Potassium 4.1 mmol/L (3.5-5.1)
[2021-10-25] MEDS: INSULIN ASPART PER UNIT SC SCH ×4 (09:03→21:19)
[2021-10-25] MEDS: CYANOCOBALAMIN (B-12) 500 MCG TABLET PO SCH (09:04)
[2021-10-25] MEDS: allopurinoL 100 MG TAB PO SCH (09:04)
[2021-10-25] MEDS: ISOSORBIDE MONO EXTENDED REL 30 MG TABCR PO SCH (09:04)
[2021-10-25] MEDS: FUROSEMIDE 40 MG TAB PO SCH (09:04)
[2021-10-25] MEDS: METOPROLOL SUCC 50MG EXT REL TAB PO SCH (09:05)
[2021-10-25] MEDS: TRIAMCINOLONE ACET 0.1% CR 15 GM TUBE TOP SCH ×2 (09:05→21:23)
[2021-10-25] MEDS: PANTOprazole 40 MG TAB PO SCH ×2 (09:05→21:22)
[2021-10-25] MEDS: traMADol HCL 50 MG TABLET PO PRN (12:31)
--- NOTE | 2021-10-25 14:55 | Hospitalist Progress Note ---
Date of Service October 25, 2021 Assessment & Plan (1) Generalized weakness: Plan: Multiple chronic medical problems including ILD, DMII, ischemic cardiomyopathy, and CKD Stage 3 and spinal stenosis and BPH with reports Recent workup revealed possible autoimmune hepatitis with steroids declined at this time--there [place] [facility] [place]. LFTs and hyperbilirubinemia has improved. CT head showed no acute intracranial abnormality Continue PT/OT-recommended rehab Denies any significant pain as of today 10/13/2021 Awaiting placement-remains stable No new issues except ongoing left knee pain Remains stable and awaiting placement No other acute issues and awaiting placement Left knee pain 2/[address] L knee showed No evidence of acute fracture or dislocation. Superficial edema is seen in the anterior aspect of the knee which is nonspecific, Ortho on board No surgical intervention PT/OT eval -clinically needs better No swelling and/or significant pain Complains to have worse pain with pressure on the knee joint with associated abdominal discomfort and nausea Ortho eval again today and he is continuing to improve. Conservative scheduled Tylenol, ice --continue this, pain seems to have improved . cont PT/OT efforts and ambulating him out of bed as often as possible. Knee pain has been stable-explained the pathophysiology of the knee joint pain Abdominal pain-resolved. Liver u/s showed Exam compromised by suboptimal penetration. No biliary ductal dilatation identified. Sludge and small stones within the gallbladder. No evidence for acute cholecystitis. Gastro on board -appreciate input and recommendation GI signed off and will not use any steroid for now Denies any abdominal pain and/or nausea or vomiting Has been moving bowels regularly Chronic Elevated troponin: Resting echo-unchanged from prior study and perhaps slight improvement with overall systolic function Patient's advanced age and multiple comorbid conditions likely contributing to h is generalized weakness No evidence of ACS Asymptomatic CAD (coronary artery disease): Continue asa, betablocker Stable Ischemic cardiomyopathy: 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: Appears compensated, continue home dose of furosemide Continue ASA, beta-corky, nitrate No acute distress CKD (chronic kidney disease) stage 4, GFR 15-29 ml/min: chronic, stable. 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 Restart statin in am. DM type 2 (diabetes mellitus, type 2): Most recent Hgb A1c 6.4 on 10/12/21 NovoLog per protocol while hospitalized continue monitor BG Deep venous thrombosis prophylaxis: Sequential compression devices, heparin subcutaneous. Awaiting SNF placement to [facility] after the holiday weekend. DO [facility] (2) Prepatellar bursitis: (3) Acute urinary retention: (4) History of COVID-19: (5) Autoimmune hepatitis: (6) Ambulatory dysfunction: (7) DM type 2 (diabetes mellitus, type 2): (8) Benign localized prostatic hyperplasia with lower urinary tract symptoms (LUTS): (9) HTN (hypertension): (10) Hx of CABG: (11) PAF (paroxysmal atrial fibrillation): (12) CKD (chronic kidney disease), stage III: (13) DVT prophylaxis: Admission and Anticipated Discharge Date Admission Date: October 11, 2021 Subjective 10/25/2021 The patient was seen and examined in medical floor He has been feeling much better and he still complains minimal pain involving the left knee Denies any other significant symptoms Review of Systems Review of Systems: All systems reviewed and are unremarkable except as noted below Physical Exam Physical Exam: Lying in bed comfortably Constitutional: well developed, well nourished, + ill appearing and + obese Eyes: PERRL, conjunctivae normal, anicteric sclerae ENMT: external ear and nose normal, oropharynx normal Respiratory: no respiratory distress Auscultation: lungs clear to auscultation bilaterally and + diminished lung sounds Cardiovascular: Rate/Rhythm: regular rate and regular rhythm; not tachycardic Heart Sounds: normal S1 and normal S2; no murmur Extremities: + edema (Trace edema bilaterally) Gastrointestinal (Abdomen): Inspection/Auscultation: normal bowel sounds; abdomen not distended Percussion/Palpation: abdomen soft; abdomen nontender Musculoskeletal: Knee: + joint line tenderness (Minimally tender medial patellar and anterior tibial area) Neurologic: Alert, awake and oriented x3. No focal sensory or no motor deficit appreciated Lymphatic: no cervical or axillary lymphadenopathy Results & Data Results & Data ([facility]) Vital Signs (Past 12 Hours) Vital Signs Temp Pulse Resp BP Pulse Ox 10/25/21 14:47 36.5 C 61 16 120/60 96 10/25/21 07:18 36.6 C 64 16 146/66 H 98 Laboratory Results Short CBC 10/25/21 Range/Units 05:25 WBC 9.72 (4.8-10.8) K/uL Hgb 11.4 L (14.0-18.0) g/dL Hct 34.2 L (42-52) % Plt Count 323 (130-400) K/uL BMP 10/25/21 05:25 Sodium 136 Potassium 4.1 Chloride 102 Carbon Dioxide 26 BUN 55 H Creatinine 1.61 H Glucose 119 H Calcium 9.8 Medications Administered Current Inpatient Medications Acetaminophen (Acetaminophen 500 Mg Tab) 1,000 mg PO Q8H [facility] Stop: 11/19/21 10:59 Last Admin: 10/25/21 10:35 Dose: 1,000 mg Documented by: Allopurinol (Allopurinol 100 Mg Tab) 200 mg PO DAILY [facility] Stop: 11/11/21 08:59 Last Admin: 10/25/21 09:04 Dose: 200 mg Documented by: Aspirin (Aspirin 81 Mg Ectab) 81 mg PO Q2D@0900 [facility] Stop: 11/11/21 08:59 Last Admin: 10/14/21 08:37 Dose: 81 mg Documented by: Atorvastatin Calcium (Atorvastatin 40 Mg Tab) 40 mg PO HS [facility] Stop: 11/23/21 20:59 Last Admin: 10/24/21 20:35 Dose: 40 mg Documented by: Cyanocobalamin (Cyanocobalamin (B-12) 500 Mcg Tablet) 1,000 mcg PO QAM [facility] Stop: 11/11/21 08:59 Last Admin: 10/25/21 09:04 Dose: 1,000 mcg Documented by: Dextrose (Dextrose 50% 50 Ml Syringe) 25 - 50 ml IV UD PRN; Protocol PRN Reason: Hypoglycemia Protocol Stop: 11/11/21 00:14 Diclofenac Sodium (Diclofenac Sod 1% Gel 100 Gm Tube) 2 gm EXT Q8H [facility]; Protocol Stop: 11/11/21 14:44 Last Admin: 10/20/21 06:14 Dose: 2 gm Documented by: Furosemide (Furosemide 40 Mg Tab) 40 mg PO DAILY [facility] Stop: 11/11/21 08:59 Last Admin: 10/25/21 09:04 Dose: 40 mg Documented by: Gabapentin (Gabapentin 400 Mg Cap) 400 mg PO HS [facility] Stop: 11/10/21 23:52 Last Admin: 10/24/21 20:35 Dose: 400 mg Documented by: Glucagon (Glucagon For Inj 1 Mg Vial) 1 mg IM UD PRN; Protocol PRN Reason: Hypoglycemia Protocol Stop: 11/11/21 00:14 Glucose (Glucose 40% Gel 15 Gm Tube) 15 - 30 gm PO UD PRN; Protocol PRN Reason: Hypoglycemia Protocol Stop: 11/11/21 00:14 Glucose (Glucose 10 Tabs/Tube) 4 - 8 tabs PO UD PRN; Protocol PRN Reason: Hypoglycemia Protocol Stop: 11/11/21 00:14 Heparin Sodium (Porcine) (Heparin Sod 5,000 Unit/0.5 Ml Vial) 5,000 units SQ Q8 [facility] Stop: 11/10/21 23:52 Last Admin: 10/14/21 20:45 Dose: 5,000 units Documented by: Insulin Aspart (Insulin Aspart Per Unit) 0 units SC ACHS [facility] Stop: 11/11/21 07:29 Last Admin: 10/25/21 12:31 Dose: 1 units Documented by: Isosorbide Mononitrate (Isosorbide [place] Extended Rel 30 Mg Tabcr) 30 mg PO QAM [facility] Stop: 11/11/21 08:59 Last Admin: 10/25/21 09:04 Dose: 30 mg Documented by: Levothyroxine Sodium (Levothyroxine Sodium 125 Mcg Tablet) 125 mcg PO DAILY@0600 [facility] Stop: 11/11/21 05:59 Last Admin: 10/25/21 05:30 Dose: 125 mcg Documented by: Metoprolol Succinate (Metoprolol Succ 50mg Ext Rel Tab) 100 mg PO QAM [facility] Stop: 11/11/21 08:59 Last Admin: 10/25/21 09:05 Dose: 100 mg Documented by: Miscellaneous (Carbohydrates For Hypoglycemia ) 15 - 30 gm PO UD PRN PRN Reason: Hypoglycemia Treatment Stop: 11/11/21 00:14 Nitroglycerin (Nitroglycerin Sl 0.4 Mg/Tab Tab) 0.4 mg SL UD PRN PRN Reason: Chest Pain Stop: 11/10/21 23:52 Pantoprazole Sodium (Pantoprazole 40 Mg Tab) 40 mg PO BID [facility] Stop: 11/15/21 20:59 Last Admin: 10/25/21 09:05 Dose: 40 mg Documented by: Polyethylene Glycol (Polyethylene (Miralax) 17 Gm Pack) 17 gm PO DAILY PRN PRN Reason: Constipation Stop: 11/10/21 23:52 Tramadol HCl (Tramadol Hcl 50 Mg Tablet) 50 mg PO TID PRN PRN Reason: Pain Stop: 11/10/21 23:52 Last Admin: 10/25/21 12:31 Dose: 50 mg Documented by: Triamcinolone Acetonide (Triamcinolone Acet 0.1% Cr 15 Gm Tube) 1 appln TOP BID [facility] Stop: 11/10/21 23:52 Last Admin: 10/25/21 09:05 Dose: 1 appln Documented by:
[2021-10-25] MEDS: ATORVASTATIN 40 MG TAB PO SCH (21:22)
[2021-10-25] MEDS: GABAPENTIN 400 MG CAP PO SCH (21:22)
[2021-10-26] MEDS: ACETAMINOPHEN 500 MG TAB PO SCH ×3 (02:00→18:43)
[2021-10-26] MEDS: LEVOTHYROXINE SODIUM 125 MCG TABLET PO SCH (05:34)
[2021-10-26] MEDS: traMADol HCL 50 MG TABLET PO PRN ×2 (05:34→20:56)
[2021-10-26] MEDS: PANTOprazole 40 MG TAB PO SCH ×2 (08:35→20:57)
[2021-10-26] MEDS: FUROSEMIDE 40 MG TAB PO SCH (08:37)
[2021-10-26] MEDS: allopurinoL 100 MG TAB PO SCH (08:37)
[2021-10-26] MEDS: ISOSORBIDE MONO EXTENDED REL 30 MG TABCR PO SCH (08:37)
[2021-10-26] MEDS: METOPROLOL SUCC 50MG EXT REL TAB PO SCH (08:37)
[2021-10-26] MEDS: CYANOCOBALAMIN (B-12) 500 MCG TABLET PO SCH (08:37)
[2021-10-26] MEDS: TRIAMCINOLONE ACET 0.1% CR 15 GM TUBE TOP SCH ×2 (08:38→20:57)
[2021-10-26] MEDS: INSULIN ASPART PER UNIT SC SCH ×4 (08:39→20:56)
--- NOTE | 2021-10-26 17:16 | Hospitalist Progress Note ---
Date of Service October 26, 2021 Assessment & Plan (1) Generalized weakness: Plan: Multiple chronic medical problems including ILD, DMII, ischemic cardiomyopathy, and CKD Stage 3 and spinal stenosis and BPH with reports Recent workup revealed possible autoimmune hepatitis with steroids declined at this time--there is a follow-up appointment at [facility] for patient. LFTs and hyperbilirubinemia has improved. CT head showed no acute intracranial abnormality Continue PT/OT-recommended rehab Denies any significant pain as of today 10/13/2021 Awaiting placement-remains stable No new issues except ongoing left knee pain Remains stable and awaiting placement No other acute issues and awaiting placement Medically stable and is awaiting transfer to a facility for rehab Left knee pain 2/[address] L knee showed No evidence of acute fracture or dislocation. Superficial edema is seen in the anterior aspect of the knee which is nonspecific, Ortho on board No surgical intervention PT/OT eval -clinically needs better No swelling and/or significant pain Complains to have worse pain with pressure on the knee joint with associated abdominal discomfort and nausea Ortho eval again today and he is continuing to improve. Conservative scheduled Tylenol, ice --continue this, pain seems to have improved. cont PT/OT efforts and ambulating him out of bed as often as possible. Knee pain has been stable-explained the pathophysiology of the knee joint pain In the left knee brace was given for stability and pain control in the left knee Abdominal pain-resolved. Liver u/s showed Exam compromised by suboptimal penetration. No biliary ductal dilatation identified. Sludge and small stones within the gallbladder. No evidence for acute cholecystitis. Gastro on board -appreciate input and recommendation GI signed off and will not use any steroid for now Denies any abdominal pain and/or nausea or vomiting Has been moving bowels regularly Chronic Elevated troponin: Resting echo-unchanged from prior study and perhaps slight improvement with overall systolic function Patient's advanced age and multiple comorbid conditions likely contributing to his generalized weakness No evidence of ACS Asymptomatic CAD (coronary artery disease): Continue asa, betablocker Stable Ischemic cardiomyopathy: 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: Appears compensated, continue home dose of furosemide Continue ASA, beta-corky, nitrate No acute distress CKD (chronic kidney disease) stage 4, GFR 15-29 ml/min: chronic, stable. 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 Restart statin in am. DM type 2 (diabetes mellitus, type 2): Most recent Hgb A1c 6.4 on 10/12/21 NovoLog per protocol while hospitalized continue monitor BG Deep venous thrombosis prophylaxis: Sequential compression devices, heparin subcutaneous. Awaiting SNF placement to [facility] after the holiday weekend. (2) Prepatellar bursitis: (3) Acute urinary retention: (4) History of COVID-19: (5) Autoimmune hepatitis: (6) Ambulatory dysfunction: (7) DM type 2 (diabetes mellitus, type 2): (8) Benign localized prostatic hyperplasia with lower urinary tract symptoms (TIFFANY TS): (9) HTN (hypertension): (10) Hx of CABG: (11) PAF (paroxysmal atrial fibrillation): (12) CKD (chronic kidney disease), stage III: (13) DVT prophylaxis: Admission and Anticipated Discharge Date Admission Date: October 11, 2021 Subjective 10/25/2021 The patient was seen and examined in medical floor He has been feeling much better and he still complains minimal pain involving the left knee Denies any other significant symptoms 10/26/2021 The patient was seen and examined in medical floor He has been feeling much better but he still complains to have pain in the left knee with standing Denies any other symptoms Review of Systems Review of Systems: All systems reviewed and are unremarkable except as noted below Musculoskeletal: No acute arthritis in any of the joints Physical Exam Physical Exam: Lying in bed comfortably Constitutional: well developed, well nourished, + ill appearing and + obese Eyes: PERRL, conjunctivae normal, anicteric sclerae ENMT: external ear and nose normal, oropharynx normal Respiratory: no respiratory distress Auscultation: lungs clear to auscultation bilaterally and + diminished lung sounds Cardiovascular: Rate/Rhythm: regular rate and regular rhythm; not tachycardic Heart Sounds: normal S1 and normal S2; no murmur Extremities: + edema (Trace edema bilaterally) Gastrointestinal (Abdomen): Inspection/Auscultation: normal bowel sounds; abdomen not distended Percussion/Palpation: abdomen soft; abdomen nontender Musculoskeletal: Knee: + joint line tenderness (Minimally tender medial patellar and anterior tibial area) Neurologic: Alert, awake and oriented x3. No focal sensory and/or motor deficit appreciated Lymphatic: no cervical or axillary lymphadenopathy Results & Data Results [facility] Vital Signs (Past 12 Hours) Vital Signs Temp Pulse Resp BP Pulse Ox 10/26/21 16:21 36.6 C 57 L 18 124/63 93 10/26/21 07:27 36.4 C L 62 16 127/68 97 Medications Administered Current Inpatient Medications Acetaminophen (Acetaminophen 500 Mg Tab) 1,000 mg PO Q8H TIMBO Stop: 11/19/21 10:59 Last Admin: 10/26/21 11:05 Dose: 1,000 mg Documented by: Allopurinol (Allopurinol 100 Mg Tab) 200 mg PO DAILY TIMBO Stop: 11/11/21 08:59 Last Admin: 10/26/21 08:37 Dose: 200 mg Documented by: Aspirin (Aspirin 81 Mg Ectab) 81 mg PO Q2D@0900 TIMBO Stop: 11/11/21 08:59 Last Admin: 10/14/21 08:37 Dose: 81 mg Documented by: Atorvastatin Calcium (Atorvastatin 40 Mg Tab) 40 mg PO HS [facility] Stop: 11/23/21 20:59 Last Admin: 10/25/21 21:22 Dose: 40 mg Documented by: Cyanocobalamin (Cyanocobalamin (B-12) 500 Mcg Tablet) 1,000 mcg PO QAM TIMBO Stop: 11/11/21 08:59 Last Admin: 10/26/21 08:37 Dose: 1,000 mcg Documented by: Dextrose (Dextrose 50% 50 Ml Syringe) 25 - 50 ml IV UD PRN; Protocol PRN Reason: Hypoglycemia Protocol Stop: 11/11/21 00:14 Diclofenac Sodium (Diclofenac Sod 1% Gel 100 Gm Tube) 2 gm EXT Q8H TIMBO; Protocol Stop: 11/11/21 14:44 Last Admin: 10/20/21 06:14 Dose: 2 gm Documented by: Furosemide (Furosemide 40 Mg Tab) 40 mg PO DAILY TIMBO Stop: 11/11/21 08:59 Last Admin: 10/26/21 08:37 Dose: 40 mg Documented by: Gabapentin (Gabapentin 400 Mg Cap) 400 mg PO HS TIMBO Stop: 11/10/21 23:52 Last Admin: 10/25/21 21:22 Dose: 400 mg Documented by: Glucagon (Glucagon For Inj 1 Mg Vial) 1 mg IM UD PRN; Protocol PRN Reason: Hypoglycemia Protocol Stop: 11/11/21 00:14 Glucose (Glucose 40% Gel 15 Gm Tube) 15 - 30 gm PO UD PRN; Protocol PRN Reason: Hypoglycemia Protocol Stop: 11/11/21 00:14 Glucose (Glucose 10 Tabs/Tube) 4 - 8 tabs PO UD PRN; Protocol PRN Reason: Hypoglycemia Protocol Stop: 11/11/21 00:14 Heparin Sodium (Porcine) (Heparin Sod 5,000 Unit/0.5 Ml Vial) 5,000 units SQ Q8 TIMBO Stop: 11/10/21 23:52 Last Admin: 10/14/21 20:45 Dose: 5,000 units Documented by: Insulin Aspart (Insulin Aspart Per Unit) 0 units SC ACHS [facility] Stop: 11/11/21 07:29 Last Admin: 10/26/21 12:07 Dose: 1 units Documented by: Isosorbide Mononitrate (Isosorbide [place] Extended Rel 30 Mg Tabcr) 30 mg PO QAM [facility] Stop: 11/11/21 08:59 Last Admin: 10/26/21 08:37 Dose: 30 mg Documented by: Levothyroxine Sodium (Levothyroxine Sodium 125 Mcg Tablet) 125 mcg PO DAILY@0600 [facility] Stop: 11/11/21 05:59 Last Admin: 10/26/21 05:34 Dose: 125 mcg Documented by: Metoprolol Succinate (Metoprolol Succ 50mg Ext Rel Tab) 100 mg PO QAM [facility] Stop: 11/11/21 08:59 Last Admin: 10/26/21 08:37 Dose: 100 mg Documented by: Miscellaneous (Carbohydrates For Hypoglycemia ) 15 - 30 gm PO UD PRN PRN Reason: Hypoglycemia Treatment Stop: 11/11/21 00:14 Nitroglycerin (Nitroglycerin Sl 0.4 Mg/Tab Tab) 0.4 mg SL UD PRN PRN Reason: Chest Pain Stop: 11/10/21 23:52 Pantoprazole Sodium (Pantoprazole 40 Mg Tab) 40 mg PO BID [facility] Stop: 11/15/21 20:59 Last Admin: 10/26/21 08:35 Dose: 40 mg Documented by: Polyethylene Glycol (Polyethylene (Miralax) 17 Gm Pack) 17 gm PO DAILY PRN PRN Reason: Constipation Stop: 11/10/21 23:52 Tramadol HCl (Tramadol Hcl 50 Mg Tablet) 50 mg PO TID PRN PRN Reason: Pain Stop: 11/10/21 23:52 Last Admin: 10/26/21 05:34 Dose: 50 mg Documented by: Triamcinolone Acetonide (Triamcinolone Acet 0.1% Cr 15 Gm Tube) 1 appln TOP BID TIMBO Stop: 11/10/21 23:52 Last Admin: 10/26/21 08:38 Dose: 1 appln Documented by:
[2021-10-26] MEDS: GABAPENTIN 400 MG CAP PO SCH (20:57)
[2021-10-26] MEDS: ATORVASTATIN 40 MG TAB PO SCH (20:57)
[2021-10-27] MEDS: ACETAMINOPHEN 500 MG TAB PO SCH ×3 (03:42→20:21)
[2021-10-27] MEDS: LEVOTHYROXINE SODIUM 125 MCG TABLET PO SCH (06:00)
[2021-10-27] MEDS: INSULIN ASPART PER UNIT SC SCH ×4 (09:11→21:04)
[2021-10-27] MEDS: allopurinoL 100 MG TAB PO SCH (10:15)
[2021-10-27] MEDS: CYANOCOBALAMIN (B-12) 500 MCG TABLET PO SCH (10:15)
[2021-10-27] MEDS: ISOSORBIDE MONO EXTENDED REL 30 MG TABCR PO SCH (10:16)
[2021-10-27] MEDS: FUROSEMIDE 40 MG TAB PO SCH (10:16)
[2021-10-27] MEDS: METOPROLOL SUCC 50MG EXT REL TAB PO SCH (10:17)
[2021-10-27] MEDS: TRIAMCINOLONE ACET 0.1% CR 15 GM TUBE TOP SCH ×2 (10:17→20:22)
[2021-10-27] MEDS: PANTOprazole 40 MG TAB PO SCH ×2 (10:17→20:21)
--- NOTE | 2021-10-27 16:53 | Hospitalist Progress Note ---
Date of Service October 27, 2021 Assessment & Plan (1) Generalized weakness: Plan: Multiple chronic medical problems including ILD, DMII, ischemic cardiomyopathy, and CKD Stage 3 and spinal stenosis and BPH with reports Recent workup revealed possible autoimmune hepatitis with steroids declined at this time--there [place] [facility] [place]. LFTs and hyperbilirubinemia has improved. CT head showed no acute intracranial abnormality Continue PT/OT-recommended rehab Denies any significant pain as of today 10/13/2021 Awaiting placement-remains stable No new issues except ongoing left knee pain Remains stable and awaiting placement No other acute issues and awaiting placement Medically stable and is awaiting transfer to a facility for rehab Left knee pain 2/[address] L knee showed No evidence of acute fracture or dislocation. Superficial edema is seen in the anterior aspect of the knee which is nonspecific, Ortho on board No surgical intervention PT/OT eval -clinically needs better No swelling and/or significant pain Complains to have worse pain with pressure on the knee joint with associated abdominal discomfort and nausea Ortho eval again today and he is continuing to improve. Conservative scheduled Tylenol, ice --continue this, pain seems to have improved. cont PT/OT efforts and ambulating him out of bed as often as possible. Knee pain has been stable-explained the pathophysiology of the knee joint pain In the left knee brace was given for stability and pain control in the left knee Orthotics has been consulted for left knee brace Abdominal pain-resolved. Liver u/s showed Exam compromised by suboptimal penetration. No biliary ductal dilatation identified. Sludge and small stones within the gallbladder. No evidence for acute cholecystitis. Gastro on board -appreciate input and recommendation GI signed off and will not use any steroid for now Denies any abdominal pain and/or nausea or vomiting Has been moving bowels regularly Chronic Elevated troponin: Resting echo-unchanged from prior study and perhaps slight improvement with overall systolic function Patient's advanced age and multiple comorbid conditions likely contributing to his generalized weakness No evidence of ACS Asymptomatic CAD (coronary artery disease): Continue asa, betablocker Stable Ischemic cardiomyopathy: 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: Appears compensated, continue home dose of furosemide Continue ASA, beta-corky, nitrate No acute distress CKD (chronic kidney disease) stage 4, GFR 15-29 ml/min: chronic, stable. 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 Restart statin in am. DM type 2 (diabetes mellitus, type 2): Most recent Hgb A1c 6.4 on 10/12/21 NovoLog per protocol while hospitalized continue monitor BG Deep venous thrombosis prophylaxis: Sequential compression devices, heparin subcutaneous. Awaiting SNF placement to [facility] after the holiday weekend. (2) Prepatellar bursitis: (3) Acute urinary retention: (4) History of COVID-19: (5) Autoimmune hepatitis: (6) Ambulatory dysfunction: (7) DM type 2 (diabetes mellitus, type 2): (8) Benign localized prostatic hyperplasia with lower urinary tract symptoms (LUTS): (9) HTN (hypertension): (10) Hx of CABG: (11) PAF (paroxysmal atrial fibrillation): (12) CKD (chronic kidney disease), stage III: (13) DVT prophylaxis: Admission and Anticipated Discharge Date Admission Date: October 11, 2021 Subjective 10/25/2021 The patient was seen and examined in medical floor He has been feeling much better and he still complains minimal pain involving the left knee Denies any other significant symptoms 10/26/2021 The patient was seen and examined in medical floor He has been feeling much better but he still complains to have pain in the left knee with standing Denies any other symptoms 10/27/2021 The patient was seen and examined in medical floor He has been stable and he still has some left knee pain Denies any other significant symptoms Awaiting placement Review of Systems Review of Systems: All systems reviewed and are unremarkable except as noted below Musculoskeletal: No acute arthritis in any of the joints Physical Exam Physical Exam: Lying in bed comfortably Constitutional: well developed, well nourished, + ill appearing and + obese Eyes: PERRL, conjunctivae normal, anicteric sclerae ENMT: external ear and nose normal, oropharynx normal Respiratory: no respiratory distress Auscultation: lungs clear to auscultation bilaterally and + diminished lung sounds Cardiovascular: Rate/Rhythm: regular rate and regular rhythm; not tachycardic Heart Sounds: normal S1 and normal S2; no murmur Extremities: + edema (Trace edema bilaterally) Gastrointestinal (Abdomen): Inspection/Auscultation: normal bowel sounds; abdomen not distended Percussion/Palpation: abdomen soft; abdomen nontender Musculoskeletal: Knee: + joint line tenderness (Minimally tender medial patellar and anterior tibial area) Neurologic: Alert, awake and oriented x3. Generally weak Lymphatic: no cervical or axillary lymphadenopathy Results & Data Results & Data ([facility]) Vital Signs (Past 12 Hours) Vital Signs Temp Pulse Resp BP BP Pulse Ox 10/27/21 15:02 36.7 C 60 18 109/65 97 10/27/21 11:01 95 10/27/21 08:27 36.4 C L 59 L 16 142/71 H 96 Medications Administered Current Inpatient Medications Acetaminophen (Acetaminophen 500 Mg Tab) 1,000 mg PO Q8H TIMBO Stop: 11/19/21 10:59 Last Admin: 10/27/21 10:34 Dose: 1,000 mg Documented by: Allopurinol (Allopurinol 100 Mg Tab) 200 mg PO DAILY TIMBO Stop: 11/11/21 08:59 Last Admin: 10/27/21 10:15 Dose: 200 mg Documented by: Aspirin (Aspirin 81 Mg Ectab) 81 mg PO Q2D@0900 TIMBO Stop: 11/11/21 08:59 Last Admin: 10/14/21 08:37 Dose: 81 mg Documented by: Atorvastatin Calcium (Atorvastatin 40 Mg Tab) 40 mg PO HS TIMBO Stop: 11/23/21 20:59 Last Admin: 10/26/21 20:57 Dose: 40 mg Documented by: Cyanocobalamin (Cyanocobalamin (B-12) 500 Mcg Tablet) 1,000 mcg PO QAM TIMBO Stop: 11/11/21 08:59 Last Admin: 10/27/21 10:15 Dose: 1,000 mcg Documented by: Dextrose (Dextrose 50% 50 Ml Syringe) 25 - 50 ml IV UD PRN; Protocol PRN Reason: Hypoglycemia Protocol Stop: 11/11/21 00:14 Diclofenac Sodium (Diclofenac Sod 1% Gel 100 Gm Tube) 2 gm EXT Q8H TIMBO; Protocol Stop: 11/11/21 14:44 Last Admin: 10/20/21 06:14 Dose: 2 gm Documented by: Furosemide (Furosemide 40 Mg Tab) 40 mg PO DAILY TIMBO Stop: 11/11/21 08:59 Last Admin: 10/27/21 10:16 Dose: 40 mg Documented by: Gabapentin (Gabapentin 400 Mg Cap) 400 mg PO HS [facility] Stop: 11/10/21 23:52 Last Admin: 10/26/21 20:57 Dose: 400 mg Documented by: Glucagon (Glucagon For Inj 1 Mg Vial) 1 mg IM UD PRN; Protocol PRN Reason: Hypoglycemia Protocol Stop: 11/11/21 00:14 Glucose (Glucose 40% Gel 15 Gm Tube) 15 - 30 gm PO UD PRN; Protocol PRN Reason: Hypoglycemia Protocol Stop: 11/11/21 00:14 Glucose (Glucose 10 Tabs/Tube) 4 - 8 tabs PO UD PRN; Protocol PRN Reason: Hypoglycemia Protocol Stop: 11/11/21 00:14 Heparin Sodium (Porcine) (Heparin Sod 5,000 Unit/0.5 Ml Vial) 5,000 units SQ Q8 TIMBO Stop: 11/10/21 23:52 Last Admin: 10/14/21 20:45 Dose: 5,000 units Documented by: Insulin Aspart (Insulin Aspart Per Unit) 0 units SC ACHS [facility] Stop: 11/11/21 07:29 Last Admin: 10/27/21 12:52 Dose: Not Given Documented by: Isosorbide Mononitrate (Isosorbide [place] Extended Rel 30 Mg Tabcr) [facility] Stop: 11/11/21 08:59 Last Admin: 10/27/21 10:16 Dose: 30 mg Documented by: Levothyroxine Sodium (Levothyroxine Sodium 125 Mcg Tablet) 125 mcg PO DAILY@0600 [facility] Stop: 11/11/21 05:59 Last Admin: 10/27/21 06:00 Dose: 125 mcg Documented by: Metoprolol Succinate (Metoprolol Succ 50mg Ext Rel Tab) [facility] Stop: 11/11/21 08:59 Last Admin: 10/27/21 10:17 Dose: 100 mg Documented by: Miscellaneous (Carbohydrates For Hypoglycemia ) 15 - 30 gm PO UD PRN PRN Reason: Hypoglycemia Treatment Stop: 11/11/21 00:14 Nitroglycerin (Nitroglycerin Sl 0.4 Mg/Tab Tab) 0.4 mg SL UD PRN PRN Reason: Chest Pain Stop: 11/10/21 23:52 Pantoprazole Sodium (Pantoprazole 40 Mg Tab) 40 mg PO BID [facility] Stop: 11/15/21 20:59 Last Admin: 10/27/21 10:17 Dose: 40 mg Documented by: Polyethylene Glycol (Polyethylene (Miralax) 17 Gm Pack) 17 gm PO DAILY PRN PRN Reason: Constipation Stop: 11/10/21 23:52 Tramadol HCl (Tramadol Hcl 50 Mg Tablet) 50 mg PO TID PRN PRN Reason: Pain Stop: 11/10/21 23:52 Last Admin: 10/26/21 20:56 Dose: 50 mg Documented by: Triamcinolone Acetonide (Triamcinolone Acet 0.1% Cr 15 Gm Tube) 1 appln TOP BID [facility] Stop: 11/10/21 23:52 Last Admin: 10/27/21 10:17 Dose: 1 appln Documented by:
[2021-10-27] MEDS: GABAPENTIN 400 MG CAP PO SCH (20:21)
[2021-10-27] MEDS: ATORVASTATIN 40 MG TAB PO SCH (20:21)
[2021-10-28] MEDS: ACETAMINOPHEN 500 MG TAB PO SCH ×3 (04:31→18:19)
[2021-10-28] MEDS: LEVOTHYROXINE SODIUM 125 MCG TABLET PO SCH (06:04)
[2021-10-28] MEDS: INSULIN ASPART PER UNIT SC SCH ×4 (09:00→20:44)
[2021-10-28] MEDS: allopurinoL 100 MG TAB PO SCH (09:01)
[2021-10-28] MEDS: FUROSEMIDE 40 MG TAB PO SCH (09:02)
[2021-10-28] MEDS: CYANOCOBALAMIN (B-12) 500 MCG TABLET PO SCH (09:02)
[2021-10-28] MEDS: ISOSORBIDE MONO EXTENDED REL 30 MG TABCR PO SCH (09:03)
[2021-10-28] MEDS: PANTOprazole 40 MG TAB PO SCH ×2 (09:03→20:45)
[2021-10-28] MEDS: METOPROLOL SUCC 50MG EXT REL TAB PO SCH (09:03)
[2021-10-28] MEDS: TRIAMCINOLONE ACET 0.1% CR 15 GM TUBE TOP SCH ×2 (09:04→20:45)
[2021-10-28] MEDS: traMADol HCL 50 MG TABLET PO PRN ×2 (09:21→21:50)
--- NOTE | 2021-10-28 16:51 | Hospitalist Progress Note ---
Date of Service October 28, 2021 Assessment & Plan (1) Generalized weakness: Plan: Multiple chronic medical problems including ILD, DMII, ischemic cardiomyopathy, and CKD Stage 3 and spinal stenosis and BPH with reports Recent workup revealed possible autoimmune hepatitis with steroids declined at this time--there is a follow-up appointment at [facility] [place] for patient. LFTs and hyperbilirubinemia has improved. CT head showed no acute intracranial abnormality Continue PT/OT-recommended rehab Denies any significant pain as of today 10/13/2021 Awaiting placement-remains stable No new issues except ongoing left knee pain Remains stable and awaiting placement No other acute issues and awaiting placement Medically stable and is awaiting transfer to a facility for rehab Awaiting placement Left knee pain 2/[address] L knee showed No evidence of acute fracture or dislocation. Superficial edema is seen in the anterior aspect of the knee which is nonspecific, Ortho on board No surgical intervention PT/OT eval -clinically needs better No swelling and/or significant pain Complains to have worse pain with pressure on the knee joint with associated abdominal discomfort and nausea Ortho eval again today and he is continuing to improve. Conservative scheduled Tylenol, ice --continue this, pain seems to have improved. cont PT/OT efforts and ambulating him out of bed as often as possible. Knee pain has been stable-explained the pathophysiology of the knee joint pain In the left knee brace was given for stability and pain control in the left knee Orthotics has been consulted for left knee brace With a left knee brace soon Abdominal pain-resolved. Liver u/s showed Exam compromised by suboptimal penetration. No biliary ductal dilatation identified. Sludge and small stones within the gallbladder. No ev idence for acute cholecystitis. Gastro on board -appreciate input and recommendation GI signed off and will not use any steroid for now Denies any abdominal pain and/or nausea or vomiting Has been moving bowels regularly Chronic Elevated troponin: Resting echo-unchanged from prior study and perhaps slight improvement with overall systolic function Patient's advanced age and multiple comorbid conditions likely contributing to his generalized weakness No evidence of ACS Asymptomatic CAD (coronary artery disease): Continue asa, betablocker Stable Ischemic cardiomyopathy: 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: Appears compensated, continue home dose of furosemide Continue ASA, beta-corky, nitrate No acute distress CKD (chronic kidney disease) stage 4, GFR 15-29 ml/min: chronic, stable. 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 Restart statin in am. DM type 2 (diabetes mellitus, type 2): Most recent Hgb A1c 6.4 on 10/12/21 NovoLog per protocol while hospitalized continue monitor BG Deep venous thrombosis prophylaxis: Sequential compression devices, heparin subcutaneous. Awaiting SNF placement to [facility] after the weekend. Awaiting placement (2) Prepatellar bursitis: (3) Acute urinary retention: (4) History of COVID-19: (5) Autoimmune hepatitis: (6) Ambulatory dysfunction: (7) DM type 2 (diabetes mellitus, type 2): (8) Benign localized prostatic hyperplasia with lower urinary tract symptoms (LUTS): (9) HTN (hypertension): (10) Hx of CABG: (11) PAF (paroxysmal atrial fibrillation): (12) CKD (chronic kidney disease), stage III: (13) DVT prophylaxis: Admission and Anticipated Discharge Date Admission Date: October 11, 2021 Subjective 10/25/2021 The patient was seen and examined in medical floor He has been feeling much better and he still complains minimal pain involving the left knee Denies any other significant symptoms 10/26/2021 The patient was seen and examined in medical floor He has been feeling much better but he still complains to have pain in the left knee with standing Denies any other symptoms 10/27/2021 The patient was seen and examined in medical floor He has been stable and he still has some left knee pain Denies any other significant symptoms Awaiting placement 10/28/2021 The patient was seen and examined in medical floor He remains stable and he still complains to pain in the left knee Has been waiting for the left knee brace Review of Systems Review of Systems: All systems reviewed and are unremarkable except as noted below Musculoskeletal: No acute arthritis in any of the joints Physical Exam Physical Exam: Lying in bed comfortably Constitutional: well developed, well nourished, + ill appearing and + obese Eyes: PERRL, conjunctivae normal, anicteric sclerae ENMT: external ear and nose normal, oropharynx normal Respiratory: no respiratory distress Auscultation: lungs clear to auscultation bilaterally and + diminished lung sounds Cardiovascular: Rate/Rhythm: regular rate and regular rhythm; not tachycardic Heart Sounds: normal S1 and normal S2; no murmur Extremities: + edema (Trace edema bilaterally) Gastrointestinal (Abdomen): Inspection/Auscultation: normal bowel sounds; abdomen not distended Percussion/Palpation: abdomen soft; abdomen nontender Musculoskeletal: Knee: + joint line tenderness (Minimally tender medial patellar and anterior tibial area) Neurologic: Alert and awake. Pleasantly confused. Generally weak. Moving all limbs Lymphatic: no cervical or axillary lymphadenopathy Results & Data Results & Data ([facility]) Vital Signs (Past 12 Hours) Vital Signs Pulse Resp BP Pulse Ox 10/28/21 07:46 59 L 16 155/7 H 96 Medications Administered Current Inpatient Medications Acetaminophen (Acetaminophen 500 Mg Tab) 1,000 mg PO Q8H [facility] Stop: 11/19/21 10:59 Last Admin: 10/28/21 13:05 Dose: 1,000 mg Documented by: Allopurinol (Allopurinol 100 Mg Tab) 200 mg PO DAILY [facility] Stop: 11/11/21 08:59 Last Admin: 10/28/21 09:01 Dose: 200 mg Documented by: Aspirin (Aspirin 81 Mg Ectab) 81 mg PO Q2D@0900 [facility] Stop: 11/11/21 08:59 Last Admin: 10/14/21 08:37 Dose: 81 mg Documented by: Atorvastatin Calcium (Atorvastatin 40 Mg Tab) 40 mg PO HS [facility] Stop: 11/23/21 20:59 Last Admin: 10/27/21 20:21 Dose: 40 mg Documented by: Cyanocobalamin (Cyanocobalamin (B-12) 500 Mcg Tablet) 1,000 mcg PO QAM [facility] Stop: 11/11/21 08:59 Last Admin: 10/28/21 09:02 Dose: 1,000 mcg Documented by: Dextrose (Dextrose 50% 50 Ml Syringe) 25 - 50 ml IV UD PRN; Protocol PRN Reason: Hypoglycemia Protocol Stop: 11/11/21 00:14 Diclofenac Sodium (Diclofenac Sod 1% Gel 100 Gm Tube) 2 gm EXT Q8H [facility]; Protocol Stop: 11/11/21 14:44 Last Admin: 10/20/21 06:14 Dose: 2 gm Documented by: Furosemide (Furosemide 40 Mg Tab) 40 mg PO DAILY [facility] Stop: 11/11/21 08:59 Last Admin: 10/28/21 09:02 Dose: 40 mg Documented by: Gabapentin (Gabapentin 400 Mg Cap) 400 mg PO HS [facility] Stop: 11/10/21 23:52 Last Admin: 10/27/21 20:21 Dose: 400 mg Documented by: Glucagon (Glucagon For Inj 1 Mg Vial) 1 mg IM UD PRN; Protocol PRN Reason: Hypoglycemia Protocol Stop: 11/11/21 00:14 Glucose (Glucose 40% Gel 15 Gm Tube) 15 - 30 gm PO UD PRN; Protocol PRN Reason: Hypoglycemia Protocol Stop: 11/11/21 00:14 Glucose (Glucose 10 Tabs/Tube) 4 - 8 tabs PO UD PRN; Protocol PRN Reason: Hypoglycemia Protocol Stop: 11/11/21 00:14 Heparin Sodium (Porcine) (Heparin Sod 5,000 Unit/0.5 Ml Vial) 5,000 units SQ Q8 [facility] Stop: 11/10/21 23:52 Last Admin: 10/14/21 20:45 Dose: 5,000 units Documented by: Insulin Aspart (Insulin Aspart Per Unit) 0 units SC ACHS [facility] Stop: 11/11/21 07:29 Last Admin: 10/28/21 12:45 Dose: Not Given Documented by: Isosorbide Mononitrate (Isosorbide [place] Extended Rel 30 Mg Tabcr) [facility] [place] [facility]: 11/11/21 08:59 Last Admin: 10/28/21 09:03 Dose: 30 mg Documented by: Levothyroxine Sodium (Levothyroxine Sodium 125 Mcg Tablet) 125 mcg PO DAILY@0600 [facility] Stop: 11/11/21 05:59 Last Admin: 10/28/21 06:04 Dose: 125 mcg Documented by: Metoprolol Succinate (Metoprolol Succ 50mg Ext Rel Tab) 100 mg PO QAM [facility] Stop: 11/11/21 08:59 Last Admin: 10/28/21 09:03 Dose: Not Given Documented by: Miscellaneous (Carbohydrates For Hypoglycemia ) 15 - 30 gm PO UD PRN PRN Reason: Hypoglycemia Treatment Stop: 11/11/21 00:14 Nitroglycerin (Nitroglycerin Sl 0.4 Mg/Tab Tab) 0.4 mg SL UD PRN PRN Reason: Chest Pain Stop: 11/10/21 23:52 Pantoprazole Sodium (Pantoprazole 40 Mg Tab) 40 mg PO BID [facility] Stop: 11/15/21 20:59 Last Admin: 10/28/21 09:03 Dose: 40 mg Documented by: Polyethylene Glycol (Polyethylene (Miralax) 17 Gm Pack) 17 gm PO DAILY PRN PRN Reason: Constipation Stop: 11/10/21 23:52 Tramadol HCl (Tramadol Hcl 50 Mg Tablet) 50 mg PO TID PRN PRN Reason: Pain Stop: 11/10/21 23:52 Last Admin: 10/28/21 09:21 Dose: 50 mg Documented by: Triamcinolone Acetonide (Triamcinolone Acet 0.1% Cr 15 Gm Tube) 1 appln TOP BID [facility] Stop: 11/10/21 23:52 Last Admin: 10/28/21 09:04 Dose: 1 appln Documented by:
[2021-10-28] MEDS: GABAPENTIN 400 MG CAP PO SCH (20:45)
[2021-10-28] MEDS: ATORVASTATIN 40 MG TAB PO SCH (20:45)
[2021-10-29] MEDS: ACETAMINOPHEN 500 MG TAB PO SCH ×2 (03:21→12:18)
[2021-10-29] MEDS: LEVOTHYROXINE SODIUM 125 MCG TABLET PO SCH (06:31)
[2021-10-29] MEDS: traMADol HCL 50 MG TABLET PO PRN (08:02)
[2021-10-29] MEDS: FUROSEMIDE 40 MG TAB PO SCH (08:04)
[2021-10-29] MEDS: CYANOCOBALAMIN (B-12) 500 MCG TABLET PO SCH (08:04)
[2021-10-29] MEDS: allopurinoL 100 MG TAB PO SCH (08:04)
[2021-10-29] MEDS: METOPROLOL SUCC 50MG EXT REL TAB PO SCH (08:05)
[2021-10-29] MEDS: ISOSORBIDE MONO EXTENDED REL 30 MG TABCR PO SCH (08:05)
[2021-10-29] MEDS: PANTOprazole 40 MG TAB PO SCH (08:06)
[2021-10-29] MEDS: TRIAMCINOLONE ACET 0.1% CR 15 GM TUBE TOP SCH (08:06)
[2021-10-29 09:08] LABS: Basophils # (auto) 0.04 K/uL (0-0.2); Basophils % (auto) 0.4 %; Eosinophils # (auto) 0.33 K/uL (0-0.50); Eosinophils % (auto) 3.6 %; Hematocrit (blood only) 35.4 % (40.1-51.0); Hemoglobin 11.7 g/dl (14.0-18.0); Immature Granulocytes # (auto) 0.09 K/uL (0.00-0.02); Lymphocytes # (auto) 2.41 K/uL (1.2-3.4); Lymphocytes % (auto) 26.2 %; Mean Corpuscular Hemoglobin 33.2 pg (25.0-34.0); Mean Corpuscular Hgb Conc 33.1 g/dL (32.0-36.0); Mean Corpuscular Volume 100.6 fL (80.0-100.0); Mean Platelet Volume 9.8 fL (9.4-12.4); Monocytes # (auto) 0.98 K/uL (0.24-0.82); Monocytes % (auto) 10.7 %; Neutrophils # (auto) 5.34 K/uL (1.4-6.5); Neutrophils % (auto) 58.1 %; Platelet Count 312 K/uL (130-400); RDW Coefficient of Variation 15.3 % (11.5-14.5); RDW Standard Deviation 56.9 fL (36.4-46.3); Red Blood Count 3.52 M/uL (4.63-6.08); White Blood Count 9.19 K/ul (4.8-10.8)
[2021-10-29 09:34] LABS: BUN Creatinine Ratio 26.7 (10-20); Calcium 9.9 mg/dl (8.5-10.1); Creatinine Clr Calc Pharmacy 38.9 ml/min; Est GFR (African American) 50.5 ml/min; Est GFR (Non-African American) 43.5 ml/min; Potassium 4.4 mmol/L (3.5-5.1)
[2021-10-29] MEDS: INSULIN ASPART PER UNIT SC SCH ×2 (09:48→12:21)
--- NOTE | 2021-10-29 10:25 | Hospitalist Progress Note ---
Date of Service October 29, 2021 Assessment & Plan (1) Generalized weakness: Plan: Multiple chronic medical problems including ILD, DMII, ischemic cardiomyopathy, and CKD Stage 3 and spinal stenosis and BPH with reports Recent workup revealed possible autoimmune hepatitis with steroids declined at this time--there is a follow-up appointment at [facility] [place] for patient. LFTs and hyperbilirubinemia has improved. CT head showed no acute intracranial abnormality Continue PT/OT-recommended rehab Denies any significant pain as of today 10/13/2021 Awaiting placement-remains stable No new issues except ongoing left knee pain Remains stable and awaiting placement No other acute issues and awaiting placement Medically stable and is awaiting transfer to a facility for rehab He is accepted to the [facility] and will be discharged this afternoon Left knee pain 2/[address] L knee showed No evidence of acute fracture or dislocation. Superficial edema is seen in the anterior aspect of the knee which is nonspecific, Ortho on board No surgical intervention PT/OT eval -clinically needs better No swelling and/or significant pain Complains to have worse pain with pressure on the knee joint with associated abdominal discomfort and nausea Ortho eval again today and he is continuing to improve. Conservative scheduled Tylenol, ice --continue this, pain seems to have improved. cont PT/OT efforts and ambulating him out of bed as often as po ssible. Knee pain has been stable-explained the pathophysiology of the knee joint pain In the left knee brace was given for stability and pain control in the left knee Orthotics has been consulted for left knee brace Left knee pain is improved and there is no swelling and/or tenderness Abdominal pain-resolved. Liver u/s showed Exam compromised by suboptimal penetration. No biliary ductal dilatation identified. Sludge and small stones within the gallbladder. No evidence for acute cholecystitis. 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 Restart statin in am. DM type 2 (diabetes mellitus, type 2): Most recent Hgb A1c 6.4 on 10/12/21 NovoLog per protocol while hospitalized continue monitor BG Deep venous thrombosis prophylaxis: Sequential compression devices, heparin subcutaneous. Awaiting SNF placement to [facility] after the holiday weekend. Accepted to the [facility] and will be transported in the afternoon (2) Prepatellar bursitis: (3) Acute urinary retention: (4) History of COVID-19: (5) Autoimmune hepatitis: (6) Ambulatory dysfunction: (7) DM type 2 (diabetes mellitus, type 2): (8) Benign localized prostatic hyperplasia with lower urinary tract symptoms (LUTS): (9) HTN (hypertension): (10) Hx of CABG: (11) PAF (paroxysmal atrial fibrillation): (12) CKD (chronic kidney disease), stage III: (13) DVT prophylaxis: Admission and Anticipated Discharge Date Admission Date: October 11, 2021 Subjective 10/25/2021 The patient was seen and examined in medical floor He has been feeling much better and he still complains minimal pain involving the left knee Denies any other significant symptoms 10/26/2021 The patient was seen and examined in medical floor He has been feeling much better but he still complains to have pain in the left knee with standing Denies any other symptoms 10/27/2021 The patient was seen and examined in medical floor He has been stable and he still has some left knee pain Denies any other significant symptoms Awaiting placement 10/28/2021 The patient was seen and examined in medical floor He remains stable and he still complains to pain in the left knee Has been waiting for the left knee brace 10/29/2021 The patient was seen and examined in medical floor He has been feeling much better and denies any significant symptoms He will have a left knee brace today Review of Systems Review of Systems: All systems reviewed and are unremarkable except as noted below Musculoskeletal: No acute arthritis in any of the joints Physical Exam Physical Exam: Lying in bed comfortably Constitutional: well developed, well nourished, + ill appearing and + obese Eyes: PERRL, conjunctivae normal, anicteric sclerae ENMT: external ear and nose normal, oropharynx normal Neck: trachea midline, no thyromegaly Respiratory: no respiratory distress Auscultation: lungs clear to auscultation bilaterally and + diminished lung sounds Cardiovascular: Rate/Rhythm: regular rate and regular rhythm; not tachycardic Heart Sounds: normal S1 and normal S2; no murmur Extremities: + edema (Trace edema bilaterally) Gastrointestinal (Abdomen): Inspection/Auscultation: normal bowel sounds; abdomen not distended Percussion/Palpation: abdomen soft; abdomen nontender Musculoskeletal: Knee: + joint line tenderness (Minimally tender medial p atellar and anterior tibial area) Neurologic: Alert, awake and oriented x3. Generally weak but no focal sensory or no motor neurodeficit Lymphatic: no cervical or axillary lymphadenopathy Results & Data Results & Data ([facility]) Vital Signs (Past 12 Hours) Vital Signs Temp Pulse Resp BP Pulse Ox 10/29/21 07:29 36.7 C 60 14 134/72 95 Laboratory Results Short CBC 10/29/21 Range/Units 08:44 WBC 9.19 (4.8-10.8) K/ul Hgb 11.7 L (14.0-18.0) g/dl Hct 35.4 L (40.1-51.0) % Plt Count 312 (130-400) K/uL BMP 10/29/21 08:44 Sodium 135 L Potassium 4.4 Chloride 100 Carbon Dioxide 30 BUN 39 H Creatinine 1.46 H Glucose 132 H Calcium 9.9 Medications Administered Current Inpatient Medications Acetaminophen (Acetaminophen 500 Mg Tab) 1,000 mg PO Q8H [facility] Stop: 11/19/21 10:59 Last Admin: 10/29/21 03:21 Dose: 1,000 mg Documented by: Allopurinol (Allopurinol 100 Mg Tab) 200 mg PO DAILY [facility] Stop: 11/11/21 08:59 Last Admin: 10/29/21 08:04 Dose: 200 mg Documented by: Aspirin (Aspirin 81 Mg Ectab) 81 mg PO Q2D@0900 [facility] Stop: 11/11/21 08:59 Last Admin: 10/14/21 08:37 Dose: 81 mg Documented by: Atorvastatin Calcium (Atorvastatin 40 Mg Tab) 40 mg PO HS [facility] Stop: 11/23/21 20:59 Last Admin: 10/28/21 20:45 Dose: 40 mg Documented by: Cyanocobalamin (Cyanocobalamin (B-12) 500 Mcg Tablet) 1,000 mcg PO QAM [facility] Stop: 11/11/21 08:59 Last Admin: 10/29/21 08:04 Dose: 1,000 mcg Documented by: Dextrose (Dextrose 50% 50 Ml Syringe) 25 - 50 ml IV UD PRN; Protocol PRN Reason: Hypoglycemia Protocol Stop: 11/11/21 00:14 Diclofenac Sodium (Diclofenac Sod 1% Gel 100 Gm Tube) 2 gm EXT Q8H [facility]; Protocol Stop: 11/11/21 14:44 Last Admin: 10/20/21 06:14 Dose: 2 gm Documented by: Furosemide (Furosemide 40 Mg Tab) 40 mg PO DAILY [facility] Stop: 11/11/21 08:59 Last Admin: 10/29/21 08:04 Dose: 40 mg Documented by: Gabapentin (Gabapentin 400 Mg Cap) 400 mg PO HS [facility] Stop: 11/10/21 23:52 Last Admin: 10/28/21 20:45 Dose: 400 mg Documented by: Glucagon (Glucagon For Inj 1 Mg Vial) 1 mg IM UD PRN; Protocol PRN Reason: Hypoglycemia Protocol Stop: 11/11/21 00:14 Glucose (Glucose 40% Gel 15 Gm Tube) 15 - 30 gm PO UD PRN; Protocol PRN Reason: Hypoglycemia Protocol Stop: 11/11/21 00:14 Glucose (Glucose 10 Tabs/Tube) 4 - 8 tabs PO UD PRN; Protocol PRN Reason: Hypoglycemia Protocol Stop: 11/11/21 00:14 Heparin Sodium (Porcine) (Heparin Sod 5,000 Unit/0.5 Ml Vial) 5,000 units SQ Q8 [facility] Stop: 11/10/21 23:52 Last Admin: 10/14/21 20:45 Dose: 5,000 units Documented by: Insulin Aspart (Insulin Aspart Per Unit) 0 units SC ACHS [facility] Stop: 11/11/21 07:29 Last Admin: 10/29/21 09:48 Dose: Not Given Documented by: Isosorbide Mononitrate (Isosorbide [place] Extended Rel 30 Mg Tabcr) 30 mg PO QAM [facility] Stop: 11/11/21 08:59 Last Admin: 10/29/21 08:05 Dose: 30 mg Documented by: Levothyroxine Sodium (Levothyroxine Sodium 125 Mcg Tablet) 125 mcg PO DAILY@0600 [facility] Stop: 11/11/21 05:59 Last Admin: 10/29/21 06:31 Dose: 125 mcg Documented by: Metoprolol Succinate (Metoprolol Succ 50mg Ext Rel Tab) 100 mg PO QAM [facility] Stop: 11/11/21 08:59 Last Admin: 10/29/21 08:05 Dose: 100 mg Documented by: Miscellaneous (Carbohydrates For Hypoglycemia ) 15 - 30 gm PO UD PRN PRN Reason: Hypoglycemia Treatment Stop: 11/11/21 00:14 Nitroglycerin (Nitroglycerin Sl 0.4 Mg/Tab Tab) 0.4 mg SL UD PRN PRN Reason: Chest Pain Stop: 11/10/21 23:52 Pantoprazole Sodium (Pantoprazole 40 Mg Tab) 40 mg PO BID [facility] Stop: 11/15/21 20:59 Last Admin: 10/29/21 08:06 Dose: 40 mg Documented by: Polyethylene Glycol (Polyethylene (Miralax) 17 Gm Pack) 17 gm PO DAILY PRN PRN Reason: Constipation Stop: 11/10/21 23:52 Tramadol HCl (Tramadol Hcl 50 Mg Tablet) 50 mg PO TID PRN PRN Reason: Pain Stop: 11/10/21 23:52 Last Admin: 10/29/21 08:02 Dose: 50 mg Documented by: Triamcinolone Acetonide (Triamcinolone Acet 0.1% Cr 15 Gm Tube) 1 appln TOP BID [facility] Stop: 11/10/21 23:52 Last Admin: 10/29/21 08:06 Dose: 1 appln Documented by:
--- NOTE | 2021-10-30 08:13 | Discharge Summary ---
Date of Service October 30, 2021 Admission HPI Per Admitting Provider GENERAL: The patient is alert, awake, and oriented to name and place, not in acute distress. VITAL SIGNS: Temperature afebrile, pulse 60, respiratory rate 14, blood pressure 145/69, oxygen 100% on room air. HEENT: Pupils equal, round, and reactive to light. Oral mucosa moist. NECK: No JVD. No neck masses. CARDIOVASCULAR: S1 and S2 heard. Regular rate and rhythm. No murmur, no gallop. RESPIRATORY SYSTEM: Normal AP diameter. No accessory muscle use. No wheezing, no crackles. ABDOMEN: Soft. Bowel sounds are present, nontender, no distention. CENTRAL NERVOUS SYSTEM: Alert and oriented. Speech is clear. No facial droop. Obeys simple commands. Moves extremities. EXTREMITIES: No edema or erythema seen. Left knee joint is painful on movements. Nontender to palpation. No swelling seen. Principal Diagnosis Generalized weakness, left knee pain secondary to prepatellar bursitis, ischemic cardiomyopathy, autoimmune hepatitis, type 2 diabetes, chronic kidney disease stage IV Discharge Exam Lying in bed comfortably Constitutional well developed, well nourished, + ill appearing and + obese Eyes PERRL, conjunctivae normal, anicteric sclerae ENMT external ear and nose normal, oropharynx normal Neck trachea midline, no thyromegaly Respiratory no respiratory distress Auscultation: lungs clear to auscultation bilaterally and + diminished lung sounds Cardiovascular Rate/Rhythm: regular rate and regular rhythm; not tachycardic Heart Sounds: normal S1 and normal S2; no murmur Extremities: + edema (Trace edema bilaterally) Gastrointestinal (Abdomen) Inspection/Auscultation: normal bowel sounds; abdomen not distended Percussion/Palpation: abdomen soft; abdomen nontender Musculoskeletal Knee: + joint line tenderness (Minimally tender medial patellar and anterior tibial area) Lymphatic no cervical or axillary lymphadenopathy Discharge Data Allergies Allergy/AdvReac Type Severity Reaction Status Date / Time procaine [From Novocain] Allergy Intermediate Fever Verified 10/11/21 20:10 tamsulosin [From Flomax] AdvReac Severe Fainting Verified 10/11/21 20:10 amlodipine AdvReac Mild INSOMNIA Verified 10/11/21 20:10 Fibrate Anti-Lipidemics AdvReac Unknown NECK PAIN Verified 10/11/21 20:10 Consultations 10/11/21 19:22 ED Decision to Admit Stat 10/12/21 08:00 Consult Gastroenterology Routine Consult Orthopedic Surgery Routine Ordered Studies 10/11/21 16:56 CT head/brain wo con Stat 10/11/21 19:09 CT knee LT wo con Stat 10/12/21 10:07 US liver Routine Hospital Course (1) Generalized weakness: Multiple chronic medical problems including ILD, DMII, ischemic cardiomyopathy, and CKD Stage 3 and spinal stenosis and BPH with reports Recent workup revealed possible autoimmune hepatitis with steroids declined at this time--there is a follow-up appointment at [facility] for patient. LFTs and hyperbilirubinemia has improved. CT head showed no acute intracranial abnormality Continue PT/OT-recommended rehab Denies any significant pain as of today 10/13/2021 Awaiting placement-remains stable No new issues except ongoing left knee pain Remains stable and awaiting placement No other acute issues and awaiting placement Medically stable and is awaiting transfer to a facility for rehab He is accepted to the [facility] and will be discharged this afternoon Left knee pain 2/[address] L knee showed No evidence of acute fracture or dislocation. Superficial edema is seen in the anterior aspect of the knee which is nonspecific, Ortho on board No surgical intervention PT/OT eval -clinically needs better No swelling and/or significant pain Complains to have worse pain with pressure on the knee joint with associated abdominal discomfort and nausea Ortho eval again today and he is continuing to improve. Conservative scheduled Tylenol, ice --continue this, pain seems to have improved. cont PT/OT efforts and ambulating him out of bed as often as possible. Knee pain has been stable-explained the pathophysiology of the knee joint pain In the left knee brace was given for stability and pain control in the left knee Orthotics has been consulted for left knee brace Left knee pain is improved and there is no swelling and/or tenderness Abdominal pain-resolved. Liver u/s showed Exam compromised by suboptimal penetration. No biliary ductal dilatation identified. Sludge and small stones within the gallbladder. No evidence for acute cholecystitis. 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 Restart statin in am. DM type 2 (diabetes mellitus, type 2): Most recent Hgb A1c 6.4 on 10/12/21 NovoLog per protocol while hospitalized continue monitor BG Deep venous thrombosis prophylaxis: Sequential compression devices, heparin subcutaneous. Awaiting SNF placement to [facility] after the holiday weekend. Accepted to the [facility] and will be transported in the afternoon (2) Prepatellar bursitis: (3) Acute urinary retention: (4) History of COVID-19: (5) Autoimmune hepatitis: (6) Ambulatory dysfunction: (7) DM type 2 (diabetes mellitus, type 2): (8) Benign localized prostatic hyperplasia with lower urinary tract symptoms (LUTS): (9) HTN (hypertension): (10) Hx of CABG: (11) PAF (paroxysmal atrial fibrillation): (12) CKD (chronic kidney disease), stage III: (13) DVT prophylaxis: Total Time Total Time Spent Total Time Spent (In Minutes): 35 minutes Discharge Plan Discharge Items Patient Disposition: Transfer Group Home Fac Reason For Visit: WEAKNESS Discharge Diagnosis: Generalized weakness, left knee pain secondary to prepatellar bursitis, ischemic cardiomyopathy, autoimmune hepatitis, type 2 diabetes, chronic kidney disease stage IV Condition on Discharge: Fair Activity: Resume your previous activity Activity Comment: Continue PT Non-emergency contact: Primary Care Provider Call non-emergency contact if: you have any medication questions and your symptoms worsen Follow-up/Referrals: Blanca Orellana MD [Primary Care Provider] - (Please make an appointment with your primary care physician within 7 days following discharge from the facility) Diet: Carb Consistent or DM2 and Low Sodium (2gm) Addtl Attending Provider Instructions: Please take precautions to avoid falls Take your medications as advised Keep appointments with your healthcare providers Pending Studies at Discharge: No Stand-Alone Forms: My [facility] Skilled Items Patient informed of condition?: Yes DNR: Yes Discharge Level of Care: Skilled Communicable Disease: No Discharge Prognosis: Stable Lines: None Urinary Catheter: No Medications and DC Order Prescriptions: New atorvastatin 40 mg Tablet 40 mg PO HS Qty: 30 RF: 0 diclofenac sodium [Voltaren Arthritis Pain] 1 % Gel 2 g EXT Q8H Qty: 100 RF: 0 pantoprazole 40 mg Tablet,Delayed Release (Dr/Ec) 40 mg PO DAILY Qty: 30 RF: 0 Continued metoprolol succinate 100 mg Tablet Extended Release 24 Hr 100 mg PO QAM RF: 0 gabapentin 400 mg Capsule 400 mg PO HS RF: 0 allopurinol 100 mg Tablet 200 mg PO DAILY RF: 0 aspirin 81 mg Tablet,Delayed Release (Dr/Ec) 81 mg PO Q OTHER DAY RF: 0 cyanocobalamin (vitamin B-12) 500 mcg Tablet 1,000 mcg PO QAM RF: 0 levothyroxine 125 mcg Tablet 125 mcg PO DAILY@0600 RF: 0 Januvia 25 mg tablet 25 mg PO DAILY RF: 0 furosemide 40 mg tablet 40 mg PO DAILY RF: 0 triamcinolone acetonide 0.1 % Cream 1 applic TOPICAL BID RF: 0 isosorbide mononitrate 60 mg tablet extended release 24 hr 30 mg PO QAM RF: 0 tramadol 50 mg tablet 50 mg PO TID PRN (Reason: Pain) RF: 0 Discontinued cephalexin 500 mg capsule 500 mg PO TID RF: 0 Discharge Orders: Discharge Order (Routine); Ordered 10/29/21 Ordered By: Kilo Anderson/Other Patient Handouts: Managing Type 2 Diabetes Admission Data Admit Date/Time: 10/11/21 20:52 Attending Provider: Kilo Cuello Admit Provider: Heladio Brizuela Primary Care Provider: Blanca Orellana Other Providers: Pam South ; Davian Cervantes ; Heladio Brizuela ; Alex Farrar ; Earl Reina Sabrina M. ; Ashwin Leigh at [place] Other Interventions: Discharge Summary Assessment (RN) Last Done: 10/29/21 12:53
== END 2021-10-29 13:46 | DRG 558 ==
LOC: ED 16:05 → SUATTDRO 20:52 → 2W 20:52 → 3W 10-24 16:30
DX: E11.22 Type 2 diabetes mellitus with diabetic chronic kidney disease; M70.52 Other bursitis of knee, left knee; Z95.1 Presence of aortocoronary bypass graft; R53.1 Weakness; E03.9 Hypothyroidism, unspecified; I13.0 Hypertensive heart and chronic kidney disease with heart failure and stage 1 through stage 4 chronic kidney disease, or unspecified chronic kidney disease; Z91.81 History of falling; Z86.16 Personal history of COVID-19; Z95.810 Presence of automatic (implantable) cardiac defibrillator; N18.4 Chronic kidney disease, stage 4 (severe); R33.9 Retention of urine, unspecified; I25.5 Ischemic cardiomyopathy; I25.10 Atherosclerotic heart disease of native coronary artery without angina pectoris; Z86.73 Personal history of transient ischemic attack (TIA), and cerebral infarction without residual deficits; K75.4 Autoimmune hepatitis; G72.9 Myopathy, unspecified; Z79.82 Long term (current) use of aspirin; M10.9 Gout, unspecified; I48.0 Paroxysmal atrial fibrillation; N40.1 Benign prostatic hyperplasia with lower urinary tract symptoms; Z66 Do not resuscitate; J84.9 Interstitial pulmonary disease, unspecified; E46 Unspecified protein-calorie malnutrition; Z79.890 Hormone replacement therapy; I50.22 Chronic systolic (congestive) heart failure